=== PATIENT | female | born 1980 | race Caucasian/White ===

== ENCOUNTER → 2017-09-25 | Outpatient (CLI) | payer OTHER ==
[~2017-09-25] MED LIST: ACHD5005 PO; ALPR1T PO; BSP10T; CIPR7.5D2 OT; CLIN-62 PO; CLON0.5T3 PO; CLON2TAB45 PO; CTLP20T PO; CYCL10TA9 PO; DIAZ-345 PO; FLUO20CA42 PO; HYDR-2997 PO; HYDR-3583 PO; HYDR-757 PO; HYDR1TAB PO; HYDR50CA3; IBP800T PO; KETO-22 PO; LORA-407 PO; MELO-195; NAPR-243 PO; ONDAN4ODT PO; PRCD5U PO; PRD20T PO; PRM25T PO; QTP100T PO; QTP25T PO; TRAM-21 PO; TRAZ150T42; TRM50T PO; TRZ100T PO
--- NOTE | 2017-09-25 15:54 | Diagnostic Imaging Report ---
PROCEDURE: US abdomen complete. TECHNIQUE: Multiple real-time grayscale images were obtained over the abdomen in various projections. INDICATION: Right-sided abdominal pain. COMPARISON: CT abdomen and pelvis from 05/04/2012. FINDINGS: The liver is normal in size and echogenicity. There is no focal hepatic mass. The main portal vein is patent with antegrade flow. The gallbladder is distended without gallstones, wall thickening, or pericholecystic fluid. The common bile duct is obscured by overlying bowel gas. The visualized portions of the pancreas are normal. Portions of the head and tail are obscured by overlying bowel gas. The kidneys are normal in size. No hydronephrosis, shadowing calculi, or suspicious mass lesion. There is a 1.0 x 0.6 cm cyst in the lower pole of the right kidney. The spleen is normal in size measuring 10 cm in length, and without focal lesion. The aorta and IVC are normal in caliber where seen. Survey views of the right lower quadrant demonstrate no dilated tubular structure, although the right lower quadrant is obscured by gas. IMPRESSION: 1. No evidence of appendicitis, although evaluation of the right lower quadrant is very limited due to large amount of bowel gas. If this is of clinical concern, CT of the abdomen and pelvis is recommended. 2. Otherwise, normal abdominal ultrasound. Dictated by: Dictated on workstation # [id number]
== END ==
LOC: RAD 14:06
PROVIDERS: ATTEND Nurse Practitioner Community Health
DX: R10.31 Right lower quadrant pain (principal)
CPT/HCPCS: 76700

== ENCOUNTER 2018-01-29 09:37 | Emergency (ER) | payer SELFPAY ==
[~2018-01-29] VITALS: Ht 160 cm; Wt 111.1 kg
--- OUTSIDE RECORDS SUMMARY | 2018-01-29 09:43 | XMS REPORT ---
Author Author RACHAEL CHEATHAM Organization [facility] Address [address] [place] [address] Care Team Providers Care Channel Man Name Role Phone RACHAEL CHEATHAM Unavailable PROBLEMS Type Condition ICD9-CM Code [id number] Code Onset Dates Condition Status SNOMED Code Problem Anxiety F41.9 Active 16796477 Problem Dental abscess K04.7 Active 850983551 Problem Dental caries K02.9 Active 07155051 Problem Schizo affective schizophrenia F25.0 Active 070731427 Problem Cough 786.2 Active 13021906 Problem Bipolar 1 disorder F31.9 Active 135109938 Problem Severe episode of recurrent major depressive disorder, with psychotic features F33.3 Active 40457528 Problem PTSD (post-traumatic stress disorder) F43.10 Active 05127035 Problem Adjustment disorder with mixed anxiety and depressed mood F43.23 Active 45196554 Problem Mood disorder F39 Active 72108906 Problem Pain in joint, shoulder region 719.41 Active 015193920 Problem Pain in thoracic spine 724.1 Active 644604419 Problem Unspecified myalgia and myositis 729.1 Active 450718243 Problem Spasm of muscle 728.85 Active 00045392 Problem Allergic rhinitis due to pollen 477.0 Active 48661500 Problem Nondependent tobacco use disorder 305.1 Active 329360863 Problem Sciatica 724.3 Active 89323811 Problem Borderline personality disorder F60.3 Active 29286916 Problem Acute upper respiratory infections of unspecified site 465.9 Active 60049338 Problem Night terror F51.4 Active 72267284 ALLERGIES No Information SOCIAL HISTORY Never Assessed PLAN OF CARE VITAL SIGNS MEDICATIONS Medication Instructions Dosage Frequency Start Date End Date Duration Status Hildreth Carbonate 300 MG Orally 2 times a day 1 capsule 12h March, 30 day(s) Active Minipress 1 MG Orally at bedtime 3 capsules March, 30 day(s) Active Quetiapine Fumarate 200 MG Orally Once a day 1 tablet at bedtime 24h March 30 day(s) Active Desvenlafaxine Succinate ER 50 MG Orally Once a day in am 1 tablet March 30 day(s) Active Gabapentin 300 MG Orally Three times a day 1 capsule 8h March, 30 day(s) Active RESULTS No Results PROCEDURES No Known procedures IMMUNIZATIONS No Known Immunizations MEDICAL (GENERAL) HISTORY Type Description Date Medical History arthritis Medical History PTSD Medical History borderline personality disorder Medical History Anxiety disorder Medical History bulemia nervosa Medical History insomnia Medical History THC Use Medical History Major reoccurrng depression Medical History Borderline Mini Psychotic episodes Medical History OCD Medical History Encounter for long-term (current) use of other medications Medical History Encounter for long-term (current) use of other medications Medical History Other convulsions Medical History Intestinal infection due to other organism, NEC Medical History Bulimia Surgical History colonoscopy 2006 Surgical History removed tubes 2004 Surgical History EGD Hospitalization History mental health issues x2 [facility] in [place] 2016 & 02/2017 Hospitalization History Surgery(s)/Childbirth(s)
--- OUTSIDE RECORDS SUMMARY | 2018-01-29 09:43 | XMS REPORT ---
Author Author QUE LIMA Organization [facility] Address [address] [place] [address] Care Team Providers Care Director Investor Relations Name Role Phone QUE LIMA Unavailable PROBLEMS Type Condition ICD9-CM Code [id number] Code Onset Dates Condition Status SNOMED Code Problem Anxiety F41.9 Active 71046704 Problem Dental abscess K04.7 Active 297059198 Problem Dental caries K02.9 Active 07966894 Problem Schizo affective schizophrenia F25.0 Active 267039353 Problem Cough 786.2 Active 84948531 Problem Bipolar 1 disorder F31.9 Active 182067959 Problem Severe episode of recurrent major depressive disorder, with psychotic features F33.3 Active 58059171 Problem PTSD (post-traumatic stress disorder) F43.10 Active 88834283 Problem Adjustment disorder with mixed anxiety and depressed mood F43.23 Active 40350723 Problem Mood disorder F39 Active 48680205 Problem Pain in joint, shoulder region 719.41 Active 262112656 Problem Pain in thoracic spine 724.1 Active 894598373 Problem Unspecified myalgia and myositis 729.1 Active 390880293 Problem Spasm of muscle 728.85 Active 11409016 Problem Allergic rhinitis due to pollen 477.0 Active 97914304 Problem Nondependent tobacco use disorder 305.1 Active 550479752 Problem Sciatica 724.3 Active 18049901 Problem Borderline personality disorder F60.3 Active 81502069 Problem Acute upper respiratory infections of unspecified site 465.9 Active 51564166 Problem Night terror F51.4 Active 87725975 ALLERGIES Substance Reaction Event Type Date Status Penicillins Unknown Non Drug Allergy March, Active SOCIAL HISTORY Never Assessed PLAN OF CARE Activity Details Follow Up prn Reason:dental pain VITAL SIGNS MEDICATIONS Unknown Medications RESULTS No Results PROCEDURES Procedure Date Ordered Result Body Site INTRAORL - CMPL SERIES CODE 84014 April 05, 2017 PANORAMIC FILM SEE ALSO CODE 68348 April 05, 2017 IMMUNIZATIONS No Known Immunizations MEDICAL (GENERAL) HISTORY [...] EGD Hospitalization History mental health issues x2 [facility] [place] 2016 & 02/2017 Hospitalization History Surgery(s)/Childbirth(s)
--- OUTSIDE RECORDS SUMMARY | 2018-01-29 09:43 | XMS REPORT ---
Author Author RUBEN GUERRIER [facility] Address [address] [place] [address] Care Team Providers Care Subsurface Augmentee Elint Operator Name Role Phone RUBEN GUERRIER Unavailable PROBLEMS Type Condition ICD9-CM Code [id number] Code Onset Dates Condition Status SNOMED Code Problem Anxiety F41.9 Active 42113295 Problem Dental abscess K04.7 Active 819428644 Problem Dental caries K02.9 Active 09921761 Problem Schizo affective schizophrenia F25.0 Active 622089955 Problem Cough 786.2 Active 84920549 Problem Bipolar 1 disorder F31.9 Active 763183328 Problem Severe episode of recurrent major depressive disorder, with psychotic features F33.3 Active 37726719 Problem PTSD (post-traumatic stress disorder) F43.10 Active 01216097 Problem Adjustment disorder with mixed anxiety and depressed mood F43.23 Active 76140081 Problem Mood disorder F39 Active 73317786 Problem Pain in joint, shoulder region 719.41 Active 087246926 Problem Pain in thoracic spine 724.1 Active 618057314 Problem Unspecified myalgia and myositis 729.1 Active 127116946 Problem Spasm of muscle 728.85 Active 60867683 Problem Allergic rhinitis due to pollen 477.0 Active 94429894 Problem Nondependent tobacco use disorder 305.1 Active 000022598 Problem Sciatica 724.3 Active 84682257 Problem Borderline personality disorder F60.3 Active 75896445 Problem Acute upper respiratory infections of unspecified site 465.9 Active 56506453 Problem Night terror F51.4 Active 07856148 ALLERGIES Substance Reaction Event Type Date Status Penicillins Unknown Non Drug Allergy March, Active SOCIAL HISTORY Never Assessed PLAN OF CARE Activity Details Follow Up 2 Weeks Reason: VITAL SIGNS MEDICATIONS Unknown Medications RESULTS No Results PROCEDURES Procedure Date Ordered Result Body Site Psychotherapy, patient &/family, 30 minutes, established patient March 23, 2017 IMMUNIZATIONS No Known Immunizations MEDICAL (GENERAL) [...] EGD Hospitalization History mental health issues x2 [facility] in [place] 2016 & 02/2017 Hospitalization History Surgery(s)/Childbirth(s)
--- OUTSIDE RECORDS SUMMARY | 2018-01-29 09:43 | XMS REPORT ---
Author Author MARGARETTE BENTLEY Organization [facility] Address [address] [place] [address] Care Team Providers Care Blast Furnace Helper Name Role Phone MARGARETTE BENTLEY Unavailable PROBLEMS Type Condition ICD9-CM Code [id number] Code Onset Dates Condition Status SNOMED Code Problem Anxiety F41.9 Active 09806887 Problem Dental abscess K04.7 Active 187473403 Problem Dental caries K02.9 Active 78794923 Problem Schizo affective schizophrenia F25.0 Active 592320430 Problem Cough 786.2 Active 59670747 Problem Bipolar 1 disorder F31.9 Active 106210541 Problem Severe episode of recurrent major depressive disorder, with psychotic features F33.3 Active 53917532 Problem PTSD (post-traumatic stress disorder) F43.10 Active 02556957 Problem Adjustment disorder with mixed anxiety and depressed mood F43.23 Active 35718271 Problem Mood disorder F39 Active 76307918 Problem Pain in joint, shoulder region 719.41 Active 579837033 Problem Pain in thoracic spine 724.1 Active 195025000 Problem Unspecified myalgia and myositis 729.1 Active 639098495 Problem Spasm of muscle 728.85 Active 15615983 Problem Allergic rhinitis due to pollen 477.0 Active 36815054 Problem Nondependent tobacco use disorder 305.1 Active 964457620 Problem Sciatica 724.3 Active 20536731 Problem Borderline personality disorder F60.3 Active 10845519 Problem Acute upper respiratory infections of unspecified site 465.9 Active 76379950 Problem Night terror F51.4 Active 07831804 ALLERGIES Substance Reaction Event Type Date Status Penicillins Unknown Non Drug Allergy March, Active SOCIAL HISTORY Never Assessed PLAN OF CARE Activity Details Follow Up has establish care with [facility] next month Reason: VITAL SIGNS Height 63 in 2017-04-05 Weight 203.2 lbs 2017-04-05 Temperature 98.7 degrees Fahrenheit 2017-04-05 Heart Rate 76 bpm 2017-04-05 Respiratory Rate 20 2017-04-05 BMI 35.99 kg/m2 2017-04-05 Blood pressure systolic 130 mmHg 2017-04-05 Blood pressure diastolic 82 mmHg 2017-04-05 MEDICATIONS Medication Instructions Dosage Frequency Start Date End Date Duration Status Desvenlafaxine Succinate ER 50 MG Orally Once a day in am 1 tablet March 30 day(s) Active Clindamycin HCl 300 MG Orally every 8 hrs 1 capsule 8h March,March 07 days Active Quetiapine Fumarate 200 MG Orally Once a day 1 tablet at bedtime 24h March 30 day(s) Active Minipress 1 MG Orally at bedtime 3 capsules March, 30 day(s) Active [place] Carbonate 300 MG Orally 2 times a day 1 capsule 12h March, 30 day(s) Active Gabapentin 300 MG Orally [...] EGD Hospitalization History mental health issues x2 [facility] in [place] 2016 & 02/2017 Hospitalization History Surgery(s)/Childbirth(s)
--- OUTSIDE RECORDS SUMMARY | 2018-01-29 09:44 | XMS REPORT | Continuity of Care Document ---
Author Author [facility] Organization [facility] Address Unknown Phone Unavailable Allergies Active Description Code Type Severity Reaction Onset Reported/Identified Relationship to Patient Clinical Status Yes Penicillins [id number] Drug Allergy Mild N/A 07/09/2009 Yes amoxicillin Drug Allergy N/A N/A 08/26/2009 Yes Keflex Drug Allergy N/A N/A 08/26/2009 Yes amoxicillin Drug Allergy 08/26/2009 Yes Keflex Drug Allergy 08/26/2009 Yes BuSpar Drug Allergy N/A N/A 06/03/2010 Yes BuSpar Drug Allergy 06/03/2010 Yes hydrocodone Drug Allergy 12/07/2010 Yes Lortab 5/500 Drug Allergy 12/07/2010 Yes Cephalexin Monohydrate [id number] Drug Allergy Unknown N/A 05/04/2012 Yes Penicillins Drug Allergy N/A N/A 10/19/2012 Yes Penicillins Drug Allergy 10/19/2012 Medications There is no data. Problems Date Dx Coded Attending Type Code Diagnosis Diagnosed By 08/26/2009 KANE ORTEZ DO 300.00 Anxiety 08/26/2009 KANE ORTEZ DO 338.2 CHRONIC PAIN 08/26/2009 [facility] [place] R 300.00 Anxiety 08/26/2009 [facility] [place] R 338.2 CHRONIC PAIN 08/26/2009 [facility] [place] R 300.00 Anxiety 08/26/2009 [facility] [place] R 338.2 CHRONIC PAIN 08/26/2009 [facility] [place] R 300.00 Anxiety 08/26/2009 [facility] [place] R 338.2 CHRONIC PAIN 08/26/2009 KIMBERLY PINZON APRN 300.00 Anxiety 08/26/2009 KIMBERLY PINZON APRN 338.2 CHRONIC PAIN 08/26/2009 300.00 Anxiety 08/26/2009 338.2 CHRONIC PAIN 08/26/2009 300.00 Anxiety 08/26/2009 338.2 CHRONIC PAIN 08/26/2009 RACHAEL CHEATHAM APRN 300.00 Anxiety 08/26/2009 RACHAEL CHEATHAM APRN 338.2 CHRONIC PAIN 08/26/2009 KIMBERLY PINZON APRN R 300.00 Anxiety 08/26/2009 KIMBERLY PINZON APRN R 338.2 CHRONIC PAIN 08/26/2009 ORTEZ DO, KANE K 300.00 Anxiety 08/26/2009 ORTEZ DO, KANE K 338.2 CHRONIC PAIN 08/26/2009 ORTEZ DO, KANE K 300.00 Anxiety 08/26/2009 ORTEZ DO, KANE K 338.2 CHRONIC PAIN 08/26/2009 PHIL MATUTE MD 300.00 Anxiety 08/26/2009 PHIL MATUTE MD 338.2 CHRONIC PAIN 08/26/2009 ORTEZ DO, KANE K 300.00 Anxiety 08/26/2009 ORTEZ DO, KANE K 338.2 CHRONIC PAIN 09/24/2009 ORTEZ DO, KANE K 610.1 Diffuse Cystic Mastopathy 09/24/2009 [facility] [place] R 610.1 Diffuse Cystic Mastopathy 09/24/2009 [facility] [place] R 610.1 Diffuse Cystic Mastopathy 09/24/2009 [facility] [place] R 610.1 Diffuse Cystic Mastopathy 09/24/2009 KIMBERLY PINZON APRN R 610.1 Diffuse Cystic Mastopathy 09/24/2009 610.1 Diffuse Cystic Mastopathy 09/24/2009 610.1 Diffuse Cystic Mastopathy 09/24/2009 RACHAEL CHEATHAM APRN 610.1 Diffuse Cystic Mastopathy 09/24/2009 KIMBERLY PINZON APRN R 610.1 Diffuse Cystic Mastopathy 09/24/2009 ORTEZ DO KANE K 610.1 Diffuse Cystic Mastopathy 09/24/2009 ORTEZ DO, AKNE K 610.1 Diffuse Cystic Mastopathy 09/24/2009 PHIL MATUTE MD 610.1 Diffuse Cystic Mastopathy 09/24/2009 ORTEZ DO, KANE K 610.1 Diffuse Cystic Mastopathy 10/20/2009 ORTEZ DO, KANE K 465.9 Acute Upper Respiratory Infections Of Unspecified Site 10/20/2009 ORTEZ DO, KANE K 564.1 Irritable Bowel Syndrome 10/20/2009 [facility] [place] R 465.9 Acute Upper Respiratory Infections Of Unspecified Site 10/20/2009 [facility] [place] R 564.1 Irritable Bowel Syndrome 10/20/2009 [facility] [place] R 465.9 Acute Upper Respiratory Infections Of Unspecified Site 10/20/2009 [facility] [place] R 564.1 Irritable Bowel Syndrome 10/20/2009 [facility] [place] R 465.9 Acute Upper Respiratory Infections Of Unspecified Site 10/20/2009 [facility] [place] R 564.1 Irritable Bowel Syndrome 10/20/2009 KIMBERLY PINZON APRN R 465.9 Acute Upper Respiratory Infections Of Unspecified Site 10/20/2009 KIMBERLY PINZON APRN R 564.1 Irritable Bowel Syndrome 10/20/2009 465.9 Acute Upper Respiratory Infections Of Unspecified Site 10/20/2009 564.1 Irritable Bowel Syndrome 10/20/2009 465.9 Acute Upper Respiratory Infections Of Unspecified Site 10/20/2009 564.1 Irritable Bowel Syndrome 10/20/2009 RACHAEL CHEATHAM APRN 465.9 Acute Upper Respiratory Infections Of Unspecified Site 10/20/2009 RACHAEL CHEATHAM APRN 564.1 Irritable Bowel Syndrome 10/20/2009 KIMBERLY PINZON APRN R 465.9 Acute Upper Respiratory Infections Of Unspecified Site 10/20/2009 KIMBERLY PINZON APRN R 564.1 Irritable Bowel Syndrome 10/20/2009 ORTEZ DO, KANE K 465.9 Acute Upper Respiratory Infections Of Unspecified Site 10/20/2009 ORTEZ DO, KANE K 564.1 Irritable Bowel Syndrome 10/20/2009 ORTEZ DO KANE K 465.9 Acute Upper Respiratory Infections Of Unspecified Site 10/20/2009 ORTEZ DO KANE K 564.1 Irritable Bowel Syndrome 10/20/2009 PHIL MATUTE MD 465.9 Acute Upper Respiratory Infections Of Unspecified Site 10/20/2009 PHIL MATUTE MD 564.1 Irritable Bowel Syndrome 10/20/2009 ORTEZ DO, KANE K 465.9 Acute Upper Respiratory Infections Of Unspecified Site 10/20/2009 ORTEZ DO KANE K 564.1 Irritable Bowel Syndrome 11/11/2009 ORTEZ DO, KANE K 599.0 Urinary Tract Infection 11/11/2009 [facility] [place] R 599.0 Urinary Tract Infection 11/11/2009 [facility] [place] R 599.0 Urinary Tract Infection 11/11/2009 [facility] [place] R 599.0 Urinary Tract Infection 11/11/2009 KIMBERLY PINZON APRN R 599.0 Urinary Tract Infection 11/11/2009 599.0 Urinary Tract Infection 11/11/2009 599.0 Urinary Tract Infection 11/11/2009 RACHAEL CHEATHAM APRN 599.0 Urinary Tract Infection 11/11/2009 KIMBERLY PINZON APRN R 599.0 Urinary Tract Infection 11/11/2009 ORTEZ DO, KANE K 599.0 Urinary Tract Infection 11/11/2009 ORTEZ DO, KANE K 599.0 Urinary Tract Infection 11/11/2009 PHIL MATUTE MD 599.0 Urinary Tract Infection 11/11/2009 ORTEZ DO, KANE K 599.0 Urinary Tract Infection 01/06/2010 ORTEZ DO, KANE K 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 01/06/2010 ORTEZ DO, KANE K 780.52 Insomnia, Unspecified 01/06/2010 ORTEZ DO, KANE K 786.2 Cough 01/06/2010 [facility] [place] R 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 01/06/2010 [facility] [place] R 780.52 Insomnia, Unspecified 01/06/2010 [facility] [place] R 786.2 Cough 01/06/2010 [facility] [place] R 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 01/06/2010 [facility] [place] R 780.52 Insomnia, Unspecified 01/06/2010 [facility] [place] R 786.2 Cough 01/06/2010 [facility] [place] R 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 01/06/2010 [facility] [place] R 780.52 Insomnia, Unspecified 01/06/2010 [facility] [place] R 786.2 Cough 01/06/2010 JEROMY TOWNSENDNJAQUELINEIA R 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 01/06/2010 JAQUELINE PINZON APRNIA R 780.52 Insomnia, Unspecified 01/06/2010 YOANA PINZON APRNRICIA R 786.2 Cough 01/06/2010 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 01/06/2010 780.52 Insomnia, Unspecified 01/06/2010 786.2 Cough 01/06/2010 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 01/06/2010 780.52 Insomnia, Unspecified 01/06/2010 786.2 Cough 01/06/2010 RACHAEL CHEATHAM APRN 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 01/06/2010 RACHAEL CHEATHAM APRN 780.52 Insomnia, Unspecified 01/06/2010 RACHAEL CHEATHAM APRN 786.2 Cough 01/06/2010 JAQUELINE PINZON APRNIA R 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 01/06/2010 KIMBERLY PINZON APRN R 780.52 Insomnia, Unspecified 01/06/2010 KIMBERLY PINZON APRN R 786.2 Cough 01/06/2010 ORTEZ DO, KANE K 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2 Cough 02/23/2010 ORTEZ DO, KANE K 789.04 Abdominal Pain, Left Lower Quadrant 02/23/2010 [facility] [place] R 789.04 Abdominal Pain, Left Lower Quadrant 02/23/2010 [facility] [place] R 789.04 Abdominal Pain, Left Lower Quadrant 02/23/2010 [facility] [place] R 789.04 Abdominal Pain, Left Lower Quadrant 02/23/2010 KIMBERLY PINZON APRN R 789.04 Abdominal Pain, Left Lower Quadrant 02/23/2010 789.04 Abdominal Pain, Left Lower Quadrant 02/23/2010 789.04 Abdominal Pain, Left Lower Quadrant 02/23/2010 RACHAEL CHEATHAM APRN 789.04 Abdominal Pain, Left Lower Quadrant 02/23/2010 KIMBERLY PINZON APRN R 789.04 Abdominal Pain, Left Lower Quadrant 02/23/2010 ORTEZ DO, KANE K 789.04 Abdominal Pain, Left Lower Quadrant 02/23/2010 ORTEZ DO, KANE K 789.04 Abdominal Pain, Left Lower Quadrant 02/23/2010 PHIL MATUTE MD 789.04 Abdominal Pain, Left Lower Quadrant 02/23/2010 ORTEZ DO, KANE K 789.04 Abdominal Pain, Left Lower Quadrant 03/16/2010 NEELIMA WALLACE, KANE K 626.8 Other Disorders Of Menstruation And Other Abnormal Bleeding From Female Genital Tract 03/16/2010 [facility] [place] R 626.8 Other Disorders Of Menstruation And Other Abnormal Bleeding From Female Genital Tract 03/16/2010 [facility] [place] R 626.8 Other Disorders Of Menstruation And Other Abnormal Bleeding From Female Genital Tract 03/16/2010 [facility] [place] R 626.8 Other Disorders Of Menstruation And Other Abnormal Bleeding From Female Genital Tract 03/16/2010 KIMBERLY PINZON APRN R 626.8 Other Disorders Of Menstruation And Other Abnormal Bleeding From Female Genital Tract 03/16/2010 626.8 Other Disorders Of Menstruation And Other Abnormal Bleeding From Female Genital Tract 03/16/2010 626.8 Other Disorders Of Menstruation And Other Abnormal Bleeding From Female Genital Tract 03/16/2010 RACHAEL CHEATHAM APRN 626.8 Other Disorders Of Menstruation And Other Abnormal Bleeding From Female Genital Tract 03/16/2010 KIMBERLY PINZON APRN R 626.8 Other Disorders Of Menstruation And Other Abnormal Bleeding From Female Genital Tract 03/16/2010 NEELIMA WALLACE KANE K 626.8 Other Disorders Of Menstruation And Other Abnormal Bleeding From Female Genital Tract 03/16/2010 ORTEZ , KANE K 626.8 Other Disorders Of Menstruation And Other Abnormal Bleeding From Female Genital Tract 03/16/2010 PHIL MATUTE MD 626.8 Other Disorders Of Menstruation And Other Abnormal Bleeding From Female Genital Tract 03/16/2010 ORTEZ DO, KANE K 626.8 Other Disorders Of Menstruation And Other Abnormal Bleeding From Female Genital Tract 06/03/2010 NEELIMA WALLACE KANE K 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 06/03/2010 [facility] [place] R 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 06/03/2010 [facility] [place] R 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 06/03/2010 [facility] [place] R 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 06/03/2010 KIMBERLY PINZON APRN R 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 06/03/2010 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 06/03/2010 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 06/03/2010 RACHAEL CHEATHAM APRN 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 06/03/2010 KIMBERLY PINZON APRN R 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 06/03/2010 ORTEZ DO KANE K 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 06/03/2010 ORTEZ DO, KANE K 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 06/03/2010 PHIL MATUTE MD 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 06/03/2010 ORTEZ DO KANE K 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 06/21/2010 NEELIMA WALLACE KANE K 729.1 Myalgia And Myositis, Unspecified 06/21/2010 [facility] [place] R 729.1 Myalgia And Myositis, Unspecified 06/21/2010 [facility] [place] R 729.1 Myalgia And Myositis, Unspecified 06/21/2010 [facility] [place] R 729.1 Myalgia And Myositis, Unspecified 06/21/2010 KIMBERLY PINZON APRN R 729.1 Myalgia And Myositis, Unspecified 06/21/2010 729.1 Myalgia And Myositis, Unspecified 06/21/2010 729.1 Myalgia And Myositis, Unspecified 06/21/2010 RACHAEL CHEATHAM APRN 729.1 Myalgia And Myositis, Unspecified 06/21/2010 KIMBERLY PINZON APRN R 729.1 Myalgia And Myositis, Unspecified 06/21/2010 JAYLON ORTEZ DOA K 729.1 Myalgia And Myositis, Unspecified 06/21/2010 JAYLON ORTEZ DOA K 729.1 Myalgia And Myositis, Unspecified 06/21/2010 PHIL MATUTE MD 729.1 Myalgia And Myositis, Unspecified 06/21/2010 ORTEZ DO, KANE K 729.1 Myalgia And Myositis, Unspecified 09/13/2010 ORTEZ DO, KANE K 724.5 BACKACHE UNSPECIFIED 09/13/2010 [facility] [place] R 724.5 BACKACHE UNSPECIFIED 09/13/2010 [facility] [place] R 724.5 BACKACHE UNSPECIFIED 09/13/2010 [facility] [place] R 724.5 BACKACHE UNSPECIFIED 09/13/2010 KIMBERLY PINZON APRN R 724.5 BACKACHE UNSPECIFIED 09/13/2010 724.5 BACKACHE UNSPECIFIED 09/13/2010 724.5 BACKACHE UNSPECIFIED 09/13/2010 RACHAEL CHEATHAM APRN 724.5 BACKACHE UNSPECIFIED 09/13/2010 KIMBERLY PINZON APRN 724.5 BACKACHE UNSPECIFIED 09/13/2010 ORTEZ DO, KANE K 724.5 BACKACHE UNSPECIFIED 09/13/2010 ORTEZ DO, KANE K 724.5 BACKACHE UNSPECIFIED 09/13/2010 PHIL MATUTE MD 724.5 BACKACHE UNSPECIFIED 09/13/2010 ORTEZ DO, KANE K 724.5 BACKACHE UNSPECIFIED 11/29/2010 ORTEZ DO, KANE K 461.9 Acute Sinusitis Unspecified 11/29/2010 [facility] [place] R 461.9 Acute Sinusitis Unspecified 11/29/2010 [facility] [place] R 461.9 Acute Sinusitis Unspecified 11/29/2010 [facility] [place] R 461.9 Acute Sinusitis Unspecified 11/29/2010 KIMBERLY PINZON APRN 461.9 Acute Sinusitis Unspecified 11/29/2010 461.9 Acute Sinusitis Unspecified 11/29/2010 461.9 Acute Sinusitis Unspecified 11/29/2010 RACHAEL CHEATHAM APRN 461.9 Acute Sinusitis Unspecified 11/29/2010 KIMBERLY PINZON APRN 461.9 Acute Sinusitis Unspecified 11/29/2010 ORTEZ DOJAYLONA K 461.9 Acute Sinusitis Unspecified 11/29/2010 ORTEZ DO KANE K 461.9 Acute Sinusitis Unspecified 11/29/2010 PHIL MATUTE MD 461.9 Acute Sinusitis Unspecified 11/29/2010 KANE ORTEZ DO 461.9 Acute Sinusitis Unspecified 02/03/2011 ORTEZ DO, KANE K 486 Pneumonia Organism Unspecified 02/03/2011 [facility] [place] R 486 Pneumonia Organism Unspecified 02/03/2011 [facility] [place] R 486 Pneumonia Organism Unspecified 02/03/2011 [facility] [place] R 486 Pneumonia Organism Unspecified 02/03/2011 KIMBERLY PINZON APRN R 486 Pneumonia Organism Unspecified 02/03/2011 486 Pneumonia Organism Unspecified 02/03/2011 486 Pneumonia Organism Unspecified 02/03/2011 RACHAEL CHEATHAM APRN 486 Pneumonia Organism Unspecified 02/03/2011 KIMBERLY PINZON APRN R 486 Pneumonia Organism Unspecified 02/03/2011 NEELIMA DO, KANE K 486 Pneumonia Organism Unspecified 02/03/2011 ORTEZ DO, KANE K 486 Pneumonia Organism Unspecified 02/03/2011 PHIL MATUTE MD 486 Pneumonia Organism Unspecified 02/03/2011 ORTEZ DO, KANE K 486 Pneumonia Organism Unspecified 02/18/2011 NEELIMA DO, KANE K 924.20 Contusion Of Foot 02/18/2011 [facility] [place] R 924.20 Contusion Of Foot 02/18/2011 [facility] [place] R 924.20 Contusion Of Foot 02/18/2011 [facility] [place] R 924.20 Contusion Of Foot 02/18/2011 KIMBERLY PINZON APRN R 924.20 Contusion Of Foot 02/18/2011 924.20 Contusion Of Foot 02/18/2011 924.20 Contusion Of Foot 02/18/2011 RACHAEL CHEATHAM APRN 924.20 Contusion Of Foot 02/18/2011 KIMBERLY PINZON APRN R 924.20 Contusion Of Foot 02/18/2011 ORTEZ DO, KANE K 924.20 Contusion Of Foot 02/18/2011 ORTEZ DO, KANE K 924.20 Contusion Of Foot 02/18/2011 PHIL MATUTE MD 924.20 Contusion Of Foot 02/18/2011 ORTEZ DO KANE K 924.20 Contusion Of Foot 07/07/2011 NEELIMA DO, KANE K 296.32 MO DEPRESSIVE RECURRENT MODERATE 07/07/2011 [facility] [place] R 296.32 MO DEPRESSIVE RECURRENT MOD[facility]ATE [facility]/07[facility] 296.32 MO DEPRESSIVE RECURRENT MODERATE [facility]/07[facility] 296.32 MO DEPRESSIVE RECURRENT MODERATE 07/07/2011 KIMBERLY PINZON APRN R 296.32 MO DEPRESSIVE RECURRENT MODERATE 07/07/2011 296.32 MO DEPRESSIVE RECURRENT MODERATE 07/07/2011 296.32 MO DEPRESSIVE RECURRENT MODERATE 07/07/2011 RACHAEL CHEATHAM APRN 296.32 MO DEPRESSIVE RECURRENT MODERATE 07/07/2011 KIMBERLY PINZON APRN R 296.32 MO DEPRESSIVE RECURRENT MODERATE 07/07/2011 ORTEZ DO, KANE K 296.32 MO DEPRESSIVE RECURRENT MODERATE 07/07/2011 ORTEZ DO, KANE K 296.32 MO DEPRESSIVE RECURRENT MODERATE 07/07/2011 PHIL MATUTE MD 296.32 MO DEPRESSIVE RECURRENT MODERATE 07/07/2011 ORTEZ DO, KANE K 296.32 MO DEPRESSIVE RECURRENT MODERATE 07/20/2011 ORTEZ DO, KANE K 300.02 AN GEN ANXIETY 07/20/2011 ORTEZ DO, KANE K 300.3 AN OBCESS COMP DIS 07/20/2011 [facility] [place] R 300.02 AN GEN ANXIETY 07/20/2011 [facility] [place] R 300.3 AN OBCESS COMP DIS 07/20/2011 [facility] [place] R 300.02 AN GEN ANXIETY 07/20/2011 [facility] [place] R 300.3 AN OBCESS COMP DIS 07/20/2011 [facility] [place] R 300.02 AN GEN ANXIETY 07/20/2011 [facility] [place] R 300.3 AN OBCESS COMP DIS 07/20/2011 KIMBERLY PINZON APRN R 300.02 AN GEN ANXIETY 07/20/2011 KIMBERLY PINZON APRN R 300.3 AN OBCESS COMP DIS 07/20/2011 300.02 AN GEN ANXIETY 07/20/2011 300.3 AN OBCESS COMP DIS 07/20/2011 300.02 AN GEN ANXIETY 07/20/2011 300.3 AN OBCESS COMP DIS 07/20/2011 RACHAEL CHEATHAM APRN 300.02 AN GEN ANXIETY 07/20/2011 RACHAEL CHEATHAM APRN 300.3 AN OBCESS COMP DIS 07/20/2011 KIMBERLY PINZON APRN R 300.02 AN GEN ANXIETY 07/20/2011 KIMBERLY PINZON APRN 300.3 AN OBCESS COMP DIS 07/20/2011 ORTEZ DO, KANE K 300.02 AN GEN ANXIETY 07/20/2011 ORTEZ DO, KANE K 300.3 AN OBCESS COMP DIS 07/20/2011 ORTEZ DO, KANE K 300.02 AN GEN ANXIETY 07/20/2011 ORTEZ DO, KANE K 300.3 AN OBCESS COMP DIS 07/20/2011 PHIL MATUTE MD 300.02 AN GEN ANXIETY 07/20/2011 PHIL MATUTE MD 300.3 AN OBCESS COMP DIS 07/20/2011 ORTEZ DO, KANE K 300.02 AN GEN ANXIETY 07/20/2011 ORTEZ DO, KANE K 300.3 AN OBCESS COMP DIS 08/01/2011 ORTEZ DO, KANE K 380.10 Infective Otitis Externa Unspecified 08/01/2011 [facility] [place] R 380.10 Infective Otitis Externa Unspecified 08/01/2011 [facility] [place] R 380.10 Infective Otitis Externa Unspecified 08/01/2011 [facility] [place] R 380.10 Infective Otitis Externa Unspecified 08/01/2011 KIMBERLY PINZON APRN 380.10 Infective Otitis Externa Unspecified 08/01/2011 380.10 Infective Otitis Externa Unspecified 08/01/2011 380.10 Infective Otitis Externa Unspecified 08/01/2011 RACHAEL CHEATHAM APRN 380.10 Infective Otitis Externa Unspecified 08/01/2011 KIMBERLY PINZON APRN 380.10 Infective Otitis Externa Unspecified 08/01/2011 ORTEZ DO KANE K 380.10 Infective Otitis Externa Unspecified 08/01/2011 ORTEZ DO, KANE K 380.10 Infective Otitis Externa Unspecified 08/01/2011 PHIL MATUTE MD 380.10 Infective Otitis Externa Unspecified 08/01/2011 ORTEZ DO, KANE K 380.10 Infective Otitis Externa Unspecified 08/02/2011 ORTEZ DO, KANE K 300.00 AN ANXIETY UNSPEC 08/02/2011 [facility] [place] R 300.00 AN ANXIETY UNSPEC 08/02/2011 [facility] [place] R 300.00 AN ANXIETY UNSPEC 08/02/2011 [facility] [place] R 300.00 AN ANXIETY UNSPEC 08/02/2011 KIMBERLY PINZON APRN 300.00 AN ANXIETY UNSPEC 08/02/2011 300.00 AN ANXIETY UNSPEC 08/02/2011 300.00 AN ANXIETY UNSPEC 08/02/2011 RACHAEL CHEATHAM APRN 300.00 AN ANXIETY UNSPEC 08/02/2011 KIMBERLY PINZON APRN R 300.00 AN ANXIETY UNSPEC 08/02/2011 ORTEZ DO KANE K 300.00 AN ANXIETY UNSPEC 08/02/2011 ORTEZ DO KANE K 300.00 AN ANXIETY UNSPEC 08/02/2011 PHIL MATUTE MD 300.00 AN ANXIETY UNSPEC 08/02/2011 ORTEZ DO KANE K 300.00 AN ANXIETY UNSPEC 08/05/2011 ORTEZ DO KANE K 848.9 Unspecified Site Of Sprain And Strain 08/05/2011 [facility] [place] R 848.9 Unspecified Site Of Sprain And Strain 08/05/2011 [facility] [place] R 848.9 Unspecified Site Of Sprain And Strain 08/05/2011 [facility] [place] R 848.9 Unspecified Site Of Sprain And Strain 08/05/2011 KIMBERLY PINZON APRN R 848.9 Unspecified Site Of Sprain And Strain 08/05/2011 848.9 Unspecified Site Of Sprain And Strain 08/05/2011 848.9 Unspecified Site Of Sprain And Strain 08/05/2011 RACHAEL CHEATHAM APRN 848.9 Unspecified Site Of Sprain And Strain 08/05/2011 KIMBERLY PINZON APRN R 848.9 Unspecified Site Of Sprain And Strain 08/05/2011 NEELIMA DOJAYLONA K 848.9 Unspecified Site Of Sprain And Strain 08/05/2011 ORTEZ DO KANE K 848.9 Unspecified Site Of Sprain And Strain 08/05/2011 PHIL MATUTE MD 848.9 Unspecified Site Of Sprain And Strain 08/05/2011 ORTEZ DO KANE K 848.9 Unspecified Site Of Sprain And Strain 08/08/2011 ORTEZ DO KANE K 309.81 AN PTSD 08/08/2011 [facility], [place] R 309.81 AN PTSD 08/08/2011 [facility], [place] R 309.81 AN PTSD 08/08/2011 [facility], [place] R 309.81 AN PTSD 08/08/2011 KIMBERLY PINZON APRN 309.81 AN PTSD 08/08/2011 309.81 AN PTSD 08/08/2011 309.81 AN PTSD 08/08/2011 RACHAEL CHEATHAM APRN 309.81 AN PTSD 08/08/2011 KIMBERLY PINZON APRN 309.81 AN PTSD 08/08/2011 JAYLON ORTEZ DOA K 309.81 AN PTSD 08/08/2011 JAYLON ORTEZ DOA K 309.81 AN PTSD 08/08/2011 PHIL MATUTE MD 309.81 AN PTSD 08/08/2011 KANE ORTEZ DO K 309.81 AN PTSD 10/17/2011 JAYLON ORTEZ DOA K 296.33 MO DEPRESSIVE RECURRENT SEVERE W/O PSYCHOTIC BEHAVIOR 10/17/2011 [facility], [place] R 296.33 MO DEPRESSIVE RECURRENT SEVERE W/O PSYCHOTIC BEHAVIOR 10/17/2011 [facility], [place] R 296.33 MO DEPRESSIVE RECURRENT SEVERE W/O PSYCHOTIC BEHAVIOR 10/17/2011 [facility], [place] R 296.33 MO DEPRESSIVE RECURRENT SEVERE W/O PSYCHOTIC BEHAVIOR 10/17/2011 KIMBERLY PINZON APRN R 296.33 MO DEPRESSIVE RECURRENT SEVERE W/O PSYCHOTIC BEHAVIOR 10/17/2011 296.33 MO DEPRESSIVE RECURRENT SEVERE W/O PSYCHOTIC BEHAVIOR 10/17/2011 296.33 MO DEPRESSIVE RECURRENT SEVERE W/O PSYCHOTIC BEHAVIOR 10/17/2011 RACHAEL CHEATHAM APRN 296.33 MO DEPRESSIVE RECURRENT SEVERE W/O PSYCHOTIC BEHAVIOR 10/17/2011 KIMBERLY PINZON APRN R 296.33 MO DEPRESSIVE RECURRENT SEVERE W/O PSYCHOTIC BEHAVIOR 10/17/2011 KANE ORTEZ DO K 296.33 MO DEPRESSIVE RECURRENT SEVERE W/O PSYCHOTIC BEHAVIOR 10/17/2011 JAYLON ORTEZ DOA K 296.33 MO DEPRESSIVE RECURRENT SEVERE W/O PSYCHOTIC BEHAVIOR 10/17/2011 PHIL MATUTE MD 296.33 MO DEPRESSIVE RECURRENT SEVERE W/O PSYCHOTIC BEHAVIOR 10/17/2011 JAYLON ORTEZ DOA K 296.33 MO DEPRESSIVE RECURRENT SEVERE W/O PSYCHOTIC BEHAVIOR 01/10/2012 JAYLON ORTEZ DOA K 465.9 ACUTE UPPER RESPIRATORY INFECTIONS OF UNSPECIFIED SITE 01/10/2012 [facility], [place] R 465.9 ACUTE UPPER RESPIRATORY INFECTIONS OF UNSPECIFIED SITE 01/10/2012 [facility], [place] R 465.9 ACUTE UPPER RESPIRATORY INFECTIONS OF UNSPECIFIED SITE 01/10/2012 [facility] [place] R 465.9 ACUTE UPPER RESPIRATORY INFECTIONS OF UNSPECIFIED SITE 01/10/2012 KIMBERLY PINZON APRN R 465.9 ACUTE UPPER RESPIRATORY INFECTIONS OF UNSPECIFIED SITE 01/10/2012 465.9 ACUTE UPPER RESPIRATORY INFECTIONS OF UNSPECIFIED SITE 01/10/2012 465.9 ACUTE UPPER RESPIRATORY INFECTIONS OF UNSPECIFIED SITE 01/10/2012 RACHAEL CHEATHAM APRN 465.9 ACUTE UPPER RESPIRATORY INFECTIONS OF UNSPECIFIED SITE 01/10/2012 KIMBERLY PINZON APRN R 465.9 ACUTE UPPER RESPIRATORY INFECTIONS OF UNSPECIFIED SITE 01/10/2012 ORTEZ DO, KANE K 465.9 ACUTE UPPER RESPIRATORY INFECTIONS OF UNSPECIFIED SITE 01/10/2012 ORTEZ DO, KANE K 465.9 ACUTE UPPER RESPIRATORY INFECTIONS OF UNSPECIFIED SITE 01/10/2012 PHIL MATUTE MD 465.9 ACUTE UPPER RESPIRATORY INFECTIONS OF UNSPECIFIED SITE 01/10/2012 ORTEZ DO, KANE K 465.9 ACUTE UPPER RESPIRATORY INFECTIONS OF UNSPECIFIED SITE 05/04/2012 Ot 787.03 VOMITING ALONE 05/04/2012 Ot 789.00 ABDOMINAL PAIN, UNSPECIFIED SITE 05/08/2012 Ot 787.03 VOMITING ALONE 05/08/2012 Ot 789.06 ABDOMINAL PAIN, EPIGASTRIC 05/26/2012 ORTEZ DO, KANE K 477.0 ALLERGIC RHINITIS DUE TO POLLEN 05/26/2012 [facility], [place] R 477.0 ALLERGIC RHINITIS DUE TO POLLEN 05/26/2012 [facility], [place] R 477.0 ALLERGIC RHINITIS DUE TO POLLEN 05/26/2012 [facility], [place] R 477.0 ALLERGIC RHINITIS DUE TO POLLEN 05/26/2012 KIMBERLY PINZON APRN R 477.0 ALLERGIC RHINITIS DUE TO POLLEN 05/26/2012 477.0 ALLERGIC RHINITIS DUE TO POLLEN 05/26/2012 477.0 ALLERGIC RHINITIS DUE TO POLLEN 05/26/2012 RACHAEL CHEATHAM APRN 477.0 ALLERGIC RHINITIS DUE TO POLLEN 05/26/2012 KIMBERLY PINZON APRN R 477.0 ALLERGIC RHINITIS DUE TO POLLEN 05/26/2012 ORTEZ DO, KANE K 477.0 ALLERGIC RHINITIS DUE TO POLLEN 05/26/2012 ORTEZ DO, KANE K 477.0 ALLERGIC RHINITIS DUE TO POLLEN 05/26/2012 PHIL MATUTE MD 477.0 ALLERGIC RHINITIS DUE TO POLLEN 05/26/2012 KANE ORTEZ DO K 477.0 ALLERGIC RHINITIS DUE TO POLLEN 06/06/2012 NEELIMA WALLACE KANE K 729.1 muscle aches, generalized (myalgias) 06/06/2012 [facility], [place] R 729.1 muscle aches, generalized (myalgias) 06/06/2012 [facility] [place] R 729.1 muscle aches, generalized (myalgias) 06/06/2012 [facility] [place] R 729.1 muscle aches, generalized (myalgias) 06/06/2012 KIMBERLY PINZON APRN 729.1 muscle aches, generalized (myalgias) 06/06/2012 729.1 muscle aches, generalized (myalgias) 06/06/2012 729.1 muscle aches, generalized (myalgias) 06/06/2012 RACHAEL CHEATHAM APRN 729.1 muscle aches, generalized (myalgias) 06/06/2012 KIMBERLY PINZON APRN 729.1 muscle aches, generalized (myalgias) 06/06/2012 JAYLON ORTEZ DOA K 729.1 muscle aches, generalized (myalgias) 06/06/2012 JAYLON ORTEZ DOA K 729.1 muscle aches, generalized (myalgias) 06/06/2012 PHIL MATUTE MD 729.1 muscle aches, generalized (myalgias) 06/06/2012 KANE ORTEZ DO K 729.1 muscle aches, generalized (myalgias) 07/07/2012 Ot 311 DEPRESSIVE DISORDER NEC 08/03/2012 KANE ORTEZ DO 301.83 PD BORDERLINE 08/03/2012 [facility] [place] R 301.83 PD BORDERLINE 08/03/2012 [facility] [place] R 301.83 PD BORDERLINE 08/03/2012 [facility] [place] R 301.83 PD BORDERLINE 08/03/2012 KIMBERLY PINZON APRN 301.83 PD BORDERLINE 08/03/2012 301.83 PD BORDERLINE 08/03/2012 301.83 PD BORDERLINE 08/03/2012 RACHAEL CHEATHAM APRN 301.83 PD BORDERLINE 08/03/2012 KIMBERLY PINZON APRN 301.83 PD BORDERLINE 08/03/2012 ORTEZ DO, KANE K 301.83 PD BORDERLINE 08/03/2012 JAYLON ORTEZ DOA K 301.83 PD BORDERLINE 08/03/2012 PHIL MATUTE MD 301.83 PD BORDERLINE 08/03/2012 ORTEZ KANE WALLACE K 301.83 PD BORDERLINE 08/09/2012 ORTEZ JAYLON WALLACEA K 305.1 NONDEPENDENT TOBACCO USE DISORDER 08/09/2012 [facility], [place] R 305.1 NONDEPENDENT TOBACCO USE DISORDER 08/09/2012 [facility] [place] R 305.1 NONDEPENDENT TOBACCO USE DISORDER 08/09/2012 [facility] [place] R 305.1 NONDEPENDENT TOBACCO USE DISORDER 08/09/2012 KIMBERLY PINZON APRN R 305.1 NONDEPENDENT TOBACCO USE DISORDER 08/09/2012 305.1 NONDEPENDENT TOBACCO USE DISORDER 08/09/2012 305.1 NONDEPENDENT TOBACCO USE DISORDER 08/09/2012 RACHAEL CHEATHAM APRN 305.1 NONDEPENDENT TOBACCO USE DISORDER 08/09/2012 KIMBERLY PINZON APRN R 305.1 NONDEPENDENT TOBACCO USE DISORDER 08/09/2012 KANE ORTEZ DO K 305.1 NONDEPENDENT TOBACCO USE DISORDER 08/09/2012 JAYLON ORTEZ DOA K 305.1 NONDEPENDENT TOBACCO USE DISORDER 08/09/2012 PHIL MATUTE MD 305.1 NONDEPENDENT TOBACCO USE DISORDER 08/09/2012 JAYLON ORTEZ DOA K 305.1 NONDEPENDENT TOBACCO USE DISORDER 08/14/2012 JAYLON ORTEZ DOA K 314.01 ADHD COMBINED 08/14/2012 JAYLON ORTEZ DOA K V58.69 MEDICATION HIGH RISK 08/14/2012 [facility] [place] R 314.01 ADHD COMBINED 08/14/2012 [facility] [place] R V58.69 MEDICATION HIGH RISK 08/14/2012 [facility] [place] R 314.01 ADHD COMBINED 08/14/2012 [facility] [place] R V58.69 MEDICATION HIGH RISK 08/14/2012 [facility] [place] R 314.01 ADHD COMBINED 08/14/2012 [facility] [place] R V58.69 MEDICATION HIGH RISK 08/14/2012 KIMBERLY PINZON APRN R 314.01 ADHD COMBINED 08/14/2012 KIMBERLY PINZON APRN R V58.69 MEDICATION HIGH RISK 08/14/2012 314.01 ADHD COMBINED 08/14/2012 V58.69 MEDICATION HIGH RISK 08/14/2012 314.01 ADHD COMBINED 08/14/2012 V58.69 MEDICATION HIGH RISK 08/14/2012 RACHAEL CHEATHAM APRN 314.01 ADHD COMBINED 08/14/2012 RACHAEL CHEATHAM APRN V58.69 MEDICATION HIGH RISK 08/14/2012 KIMBERLY PINZON APRN R 314.01 ADHD COMBINED 08/14/2012 JAQUELINE PINZON APRNIA R V58.69 MEDICATION HIGH RISK 08/14/2012 ORTEZ DO, KANE K 314.01 ADHD COMBINED 08/14/2012 ORTEZ DO, KANE K V58.69 MEDICATION HIGH RISK 08/14/2012 ORTEZ DO, KANE K 314.01 ADHD COMBINED 08/14/2012 ORTEZ DO, KANE K V58.69 MEDICATION HIGH RISK 08/14/2012 PHIL MATUTE MD 314.01 ADHD COMBINED 08/14/2012 PHIL MATUTE MD V58.69 MEDICATION HIGH RISK 08/14/2012 ORTEZ DO, KANE K 314.01 ADHD COMBINED 08/14/2012 ORTEZ DO, KANE K V58.69 MEDICATION HIGH RISK 09/15/2012 ORTEZ DO, KANE K 780.39 SEIZURES OTHER 09/15/2012 [facility], [place] R 780.39 SEIZURES OTHER 09/15/2012 [facility], [place] R 780.39 SEIZURES OTHER 09/15/2012 [facility], [place] R 780.39 SEIZURES OTHER 09/15/2012 KIMBERLY PINZON APRN R 780.39 SEIZURES OTHER 09/15/2012 780.39 SEIZURES OTHER 09/15/2012 780.39 SEIZURES OTHER 09/15/2012 RACHAEL CHEATHAM APRN 780.39 SEIZURES OTHER 09/15/2012 KIMBERLY PINZON APRN R 780.39 SEIZURES OTHER 09/15/2012 ORTEZ DO, KANE K 780.39 SEIZURES OTHER 09/15/2012 ORTEZ DO, KANE K 780.39 SEIZURES OTHER 09/15/2012 PHIL MATUTE MD 780.39 SEIZURES OTHER 09/15/2012 ORTEZ DO, KANE K 780.39 SEIZURES OTHER 10/19/2012 ORTEZ DO, KANE K 724.1 PAIN IN THORACIC SPINE 10/19/2012 [facility], [place] R 724.1 PAIN IN THORACIC SPINE 10/19/2012 [facility], [place] R 724.1 PAIN IN THORACIC SPINE 10/19/2012 [facility], [place] R 724.1 PAIN IN THORACIC SPINE 10/19/2012 KIMBERLY PINZON APRN R 724.1 PAIN IN THORACIC SPINE 10/19/2012 724.1 PAIN IN THORACIC SPINE 10/19/2012 724.1 PAIN IN THORACIC SPINE 10/19/2012 KIMBERLY PINZON APRN R 724.1 PAIN IN THORACIC SPINE 10/19/2012 JAYLON ORTEZ DOA K 724.1 PAIN IN THORACIC SPINE 10/19/2012 JAYLON ORTEZ DOA K 724.1 PAIN IN THORACIC SPINE 10/19/2012 PHIL MATUTE MD 724.1 PAIN IN THORACIC SPINE 10/19/2012 KANE ORTEZ DO K 724.1 PAIN IN THORACIC SPINE 10/24/2012 [facility], [place] R 301.9 PD PERS DIS NOS 10/24/2012 [facility] [place] R 301.9 PD PERS DIS NOS 10/24/2012 [facility] [place] R 301.9 PD PERS DIS NOS 10/24/2012 KIMBERLY PINZON APRN R 301.9 PD PERS DIS NOS 10/24/2012 301.9 PD PERS DIS NOS 10/24/2012 301.9 PD PERS DIS NOS 10/24/2012 KIMBERLY PINZON APRN R 301.9 PD PERS DIS NOS 10/24/2012 KANE ORTEZ DO K 301.9 PD PERS DIS NOS 10/24/2012 JAYLON ORTEZ DOA K 301.9 PD PERS DIS NOS 10/24/2012 PHIL MATUTE MD 301.9 PD PERS DIS NOS 10/24/2012 JAYLON ORTEZ DOA K 301.9 PD PERS DIS NOS 12/25/2012 [facility] [place] [facility] 008.8 GASTROENTERITIS VIRAL 12/25/2012 KIMBERLY PINZON APRN R 008.8 GASTROENTERITIS VIRAL 12/25/2012 008.8 GASTROENTERITIS VIRAL 12/25/2012 008.8 GASTROENTERITIS VIRAL 12/25/2012 KIMBERLY PINZON APRN R 008.8 GASTROENTERITIS VIRAL 12/25/2012 JAYLON ORTEZ DOA K 008.8 GASTROENTERITIS VIRAL 12/25/2012 NEELIMA WALLACE KANE K 008.8 GASTROENTERITIS VIRAL 12/25/2012 PHIL MATUTE MD 008.8 GASTROENTERITIS VIRAL 12/25/2012 JAYLON ORTEZ DOA K 008.8 GASTROENTERITIS VIRAL 02/06/2013 KIMBERLY PINZON APRN R 786.2 cough 02/06/2013 786.2 cough 02/06/2013 786.2 cough 02/06/2013 KIMBERLY PINZON APRN R 786.2 cough 02/06/2013 KANE ORTEZ DO 786.2 cough 02/06/2013 KANE ORTEZ DO 786.2 cough 02/06/2013 PHIL MATUTE MD 786.2 cough 02/06/2013 KANE ORTEZ DO 786.2 cough 08/13/2013 ANGELA SANTANA FIELD BROOMER Ot 719.45 JOINT PAIN-PELVIS 08/13/2013 ANGELA SANTANA FIELD BROOMER Ot 724.3 SCIATICA 08/21/2013 KANE ORTEZ DO 724.3 SCIATICA 08/21/2013 KANE ORTEZ DO 724.3 SCIATICA 08/21/2013 PHIL MATUTE MD 724.3 SCIATICA 08/21/2013 KANE ORTEZ DO 724.3 SCIATICA 01/27/2014 KANE ORTEZ DO 719.41 PAIN IN JOINT INVOLVING SHOULDER REGION 01/27/2014 PHIL MATUTE MD 719.41 PAIN IN JOINT INVOLVING SHOULDER REGION 01/27/2014 KANE ORTEZ DO 719.41 PAIN IN JOINT INVOLVING SHOULDER REGION 06/27/2014 PHIL MATUTE MD 728.85 SPASM OF MUSCLE 06/27/2014 KANE ORTEZ DO 728.85 SPASM OF MUSCLE 10/24/2017 RACHAEL CHEATHAM [facility] Ot R10.31 RIGHT LOWER QUADRANT PAIN Procedures Code Description Performed By Performed On Physical Physical Therapy, Via [facility] 09/11/2012 99664 XRAY CERVICAL SPINE, 2 OR 3 VIEWS 10/19/2012 25540 XRAY THORACIC SPINE 2 VIEWS 10/19/2012 56805 PSYCH DIAG INTER EXAM 11/01/2012 24502 PSYTX PT&/FAMILY 45 MINUTES 12/13/2012 64912 PSYCH PHARM MGMT 12/13/2012 27532 INFLUENZA A & B (IN-HOUSE) 12/25/2012 46160 PSYTX PT&/FAMILY 45 MINUTES 12/27/2012 18578 PSYCH PHARM MGMT 02/08/2013 71425 ROUTINE VENIPUNCTURE 03/25/2013 48409 URINE DRUG SCREEN (IN-HOUSE ) 03/25/2013 95405 CBC 03/25/2013 78241 CMP 03/25/2013 1656818 GFR CALC (RESULT ONLY) 03/25/2013 17581 CPK 03/25/2013 09867 XRAY SHOULDER LEFT COMP 2 VIEWS 01/27/2014 OrthopedHemant Castillo 06/27/2014 Results There is no data. Encounters ACCT No. Visit Date/Time Discharge Status Pt. Type Provider Facility Loc./Unit Complaint [id number] 09/25/2017 14:06:00 09/25/2017 23:59:59 CLS Outpatient CHAPARRITA RACHAEL Imani RANDALL [facility] RAD R10.31 ABDOMINAL PAIN , RIGHT LOWER QUADRANT [id number] 08/13/2013 18:17:00 08/13/2013 19:30:00 DIS Emergency ANGELA SANTANA APRN [facility] ER RT HIP PAIN [id number] 07/06/2013 17:30:00 07/06/2013 23:59:59 CLS Outpatient [id number] 07/07/2012 10:59:00 Document Registration [id number] 05/08/2012 09:03:00 Document Registration [id number] 05/04/2012 11:25:00 Document Registration [id number] 07/17/2014 13:43:00 07/17/2014 23:59:59 CLS Outpatient KANE ORTEZ DO [id number] 06/27/2014 09:30:00 06/27/2014 23:59:59 CLS Outpatient PHIL MATUTE MD [id number] 01/27/2014 14:32:00 01/27/2014 23:59:59 CLS Outpatient KANE ORTEZ DO [id number] 08/21/2013 11:24:00 08/21/2013 23:59:59 CLS Outpatient KANE ORTEZ DO [id number] 07/01/2013 17:32:00 07/01/2013 23:59:59 CLS Outpatient KIMBERLY PINZON APRN [id number] 02/06/2013 14:02:00 02/06/2013 23:59:59 CLS Outpatient KIMBERLY PINZON APRN [id number] 12/27/2012 13:48:00 12/27/2012 23:59:59 CLS Outpatient HENRIQUE ROTH [id number] 12/13/2012 13:44:00 12/13/2012 23:59:59 CLS Outpatient HENRIQUE ROTH [id number] 11/01/2012 10:39:00 11/01/2012 23:59:59 CLS Outpatient HENRIQUE ROTH [id number] 10/19/2012 13:43:00 10/19/2012 23:59:59 [place] [id number] 08/14/2012 16:53:00 08/14/2012 23:59:59 CLS Outpatient RACHAEL CHEATHAM APRN [id number] 05/13/2013 10:18:00 Document Registration [id number] 03/25/2013 11:12:00 Document Registration
[2018-01-29 12:16] VITALS: BP 124/93
[2018-01-29 12:36] LABS: BASOPHILS % (AUTO) 0 % (0-10); EOSINOPHILS % (AUTO) 0 % (0-10); HEMATOCRIT 41 % (35-52); HEMOGLOBIN 14.4 G/DL (11.5-16.0); LYMPHOCYTES # (AUTO) 1.9 X 10^3 (1.0-4.0); LYMPHOCYTES % (AUTO) 16 % (12-44); MEAN CORPUSCULAR HEMOGLOBIN 31 PG (25-34); MEAN CORPUSCULAR HGB CONC 35 G/DL (32-36); MEAN CORPUSCULAR VOLUME 88 FL (80-99); MEAN PLATELET VOLUME 9.4 FL (7.4-10.4); MONOCYTES # (AUTO) 0.7 X 10^3 (0.0-1.0); MONOCYTES % (AUTO) 6 % (0-12); NEUTROPHILS # (AUTO) 9.4 X 10^3 (1.8-7.8); NEUTROPHILS % (AUTO) 78 % (42-75); PLATELET COUNT 342 10^3/uL (130-400); RED BLOOD COUNT 4.65 10^6/uL (4.35-5.85); RED CELL DISTRIBUTION WIDTH 13.8 % (10.0-14.5); WHITE BLOOD COUNT 12.1 10^3/uL (4.3-11.0)
--- NOTE | 2018-01-29 12:39 | ED Abdominal Pain ---
General Chief Complaint: Abdominal/GI Problems Stated Complaint: VOMITING Nursing Triage Note: Pt c/o lower abd pain and vomiting x3 days. Pt also reports she started her second menstrual period for the month on 01/25 and vomiting started on 01/27. Sepsis Screen: No Definite Risk Source of Information: Patient Exam Limitations: No Limitations History of Present Illness Date Seen by Provider: Jan 29, 2018 Time Seen by Provider: 12:38 Initial Comments To ER with suprapubic abdominal discomfort. Began 3 days ago when she started having vaginal bleeding again for the second time this month. She began vomiting on 317 and has been unable to take her psychiatric medications. She is still nauseous. Timing/Duration: 2-3 Days Severity/Quality: Moderate Location: Suprapubic Radiation: No Radiation Activities at Onset: None Associated Symptoms: Denies Symptoms Allergies and Home Medications Allergies Coded Allergies: Penicillins (Unverified Allergy, Mild, 07/09/09) Cephalexin Monohydrate (Unverified Allergy, Unknown, 05/04/12) Home Medications Clonazepam 2 Mg/Tab Tab.rapdis, 2 MG PO HS, (Reported) Fluoxetine Hcl 20 Mg Capsule, 60 MG PO DAILY, (Reported) Hydrocodone Bit/Acetaminophen 1 Each Tablet, 1 EACH PO Q4H PRN Prescribed by: ANGELA SANTANA on 08/13/131835 Prednisone 20 Mg Tab, 40 MG PO DAILY Prescribed by: ANGELA SANTANA on 08/13/131835 Trazodone Hcl 100 Mg Tab, 100-200 MG PO HS PRN, (Reported) Patient Home Medication List Home Medication List Reviewed: Yes Review of Systems Constitutional: see HPI EENTM: No Symptoms Reported Respiratory: No Symptoms Reported Cardiovascular: No Symptoms Reported Gastrointestinal: See HPI, Abdominal Pain Genitourinary: No Symptoms Reported Musculoskeletal: no symptoms reported Skin: no symptoms reported Psychiatric/Neurological: No Symptoms Reported Endocrine: No Symptoms Reported Hematologic/Lymphatic: No Symptoms Reported Past Nmtajfk-Ayiapj-Caabhv Hx Patient Social History Alcohol Use: Rarely Uses Recreational Drug Use: No Smoking Status: Former Smoker Former Smoker, Quit: Dec 14, 2017 Recent Foreign Travel: No Contact w/Someone Who Travel: No Recent Infectious Disease Expo: No Recent Hopitalizations: No Seasonal Allergies Seasonal Allergies: No Surgeries History of Surgeries: Yes Surgeries: Tubal Ligation Respiratory History of Respiratory Disorde: No Cardiovascular History of Cardiac Disorders: No Neurological History of Neurological Disord: No 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 System Hx 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 Disorders: No [employer] History: Tubal Ligation Genitourinary History of Genitourinary Disor: No Gastrointestinal History of Gastrointestinal Di: No Musculoskeletal History of Musculoskeletal Dis: No Endocrine History of Endocrine Disorders: No HEENT History of HEENT Disorders: No Cancer History of Cancer: No Psychosocial History of Psychiatric Problem: Yes Behavioral Health Disorders: Anxiety, PTSD, Depression Integumentary History of Skin or Integumenta: No Physical Exam Vital Signs VS - Last 72 Hours, by Label 01/29/18 01/29/18 10:34 12:16 Temp 98.2 98.7 Pulse 109 102 Resp 18 20 B/P (MAP) 159/108 (125) 124/93 (103) Pulse Ox 96 100 O2 Delivery Room Air Capillary Refill : Less Than 3 Seconds General Appearance: WD/WN, no apparent distress HEENT: PERRL/EOMI, normal ENT inspection Neck: non-tender, full range of motion Respiratory: normal breath sounds, no respiratory distress, no accessory muscle use Cardiovascular: regular rate, rhythm, no murmur Gastrointestinal: normal bowel sounds, soft, tenderness (suprapubic) Extremities: normal range of motion, non-tender Neurologic/Psychiatric: alert, normal mood/affect, oriented x 3 Skin: normal color, warm/dry Progress/Results/Core Measures Results/Orders Lab Results Laboratory Tests Test 01/29/18 12:25 Range/Units White Blood Count 12.1 H 4.3-11.0 10^3/uL Red Blood Count 4.65 4.35-5.85 10^6/uL Hemoglobin 14.4 11.5-16.0 G/DL Hematocrit 41 35-52 % Mean Corpuscular Volume 88 80-99 FL Mean Corpuscular Hemoglobin 31 25-34 PG Mean Corpuscular Hemoglobin Concent 35 32-36 G/DL Red Cell Distribution Width 13.8 10.0-14.5 % Platelet Count 342 130-400 10^3/uL Mean Platelet Volume 9.4 7.4-10.4 FL Neutrophils (%) (Auto) 78 H 42-75 % Lymphocytes (%) (Auto) 16 12-44 % Monocytes (%) (Auto) 6 0-12 % Eosinophils (%) (Auto) 0 0-10 % Basophils (%) (Auto) 0 0-10 % Neutrophils # (Auto) 9.4 H 1.8-7.8 X 10^3 Lymphocytes # (Auto) 1.9 1.0-4.0 X 10^3 Monocytes # (Auto) 0.7 0.0-1.0 X 10^3 Eosinophils # (Auto) 0.0 0.0-0.3 10^3/uL Basophils # (Auto) 0.0 0.0-0.1 10^3/uL Urine Color YELLOW Urine Clarity SLIGHTLY CLOUDY Urine pH 6.5 5-9 Urine Specific [place] 1.010 L 1.016-1.022 Urine Protein 2+ H NEGATIVE Urine Glucose (UA) NEGATIVE NEGATIVE Urine Ketones 4+ H NEGATIVE Urine Nitrite NEGATIVE NEGATIVE Urine Bilirubin NEGATIVE NEGATIVE Urine Urobilinogen 1 NORMAL MG/DL Urine Leukocyte Esterase 1+ H NEGATIVE Urine RBC (Auto) 1+ H NEGATIVE Urine RBC 0-2 /HPF Urine WBC 0-2 /HPF Urine Squamous Epithelial Cells 10-25 H /HPF Urine Crystals NONE /LPF Urine Bacteria TRACE /HPF Urine Casts NONE /LPF Urine Mucus MODERATE H /LPF Urine Culture Indicated NO Urine Test NEGATIVE NEGATIVE Sodium Level 139 135-145 MMOL/L Potassium Level 3.4 L 3.6-5.0 MMOL/L Chloride Level 103 98-107 MMOL/L Carbon Dioxide Level 26 21-32 MMOL/L Anion Gap 10 5-14 MMOL/L Blood Urea Nitrogen 8 7-18 MG/DL Creatinine 0.72 0.60-1.30 MG/DL Estimat Glomerular Filtration Rate > 60 BUN/Creatinine Ratio 11 Glucose Level 93 70-105 MG/DL Calcium Level 8.9 8.5-10.1 MG/DL Total Bilirubin 0.5 0.1-1.0 MG/DL Aspartate Amino Transf (AST/SGOT) 17 5-34 U/L Alanine Aminotransferase (ALT/SGPT) 17 0-55 U/L Alkaline Phosphatase 138 H 40-136 U/L Total Protein 7.6 6.4-8.2 GM/DL Albumin 4.3 3.2-4.5 GM/DL Lipase 7 L 8-78 U/L Human Chorionic Gonadotropin, Quant < 5 <5 MIU/ML My Orders Orders - ANGELA SANTANA PHYSICAL THERAPIST TECHNICIAN Cbc With Automated Diff (01/29/18 10:51) Comprehensive Metabolic Panel (01/29/18 10:51) Ua Culture If Indicated (01/29/18 10:51) Lipase (01/29/18 10:51) Saline Lock/Iv-Start (01/29/18 10:51) Hcg,Qualitative Urine (01/29/18 12:29) Lactated Ringers (Lr 1000 Ml Iv Solution (01/29/18 12:45) Ondansetron Injection (Zofran Injectio (01/29/18 12:45) Ketorolac Injection (Toradol Injection) (01/29/18 12:45) Hcg,Quantitative (01/29/18 12:39) Us Non Ob Transvaginal [id number] (01/29/18 12:43) Medications Given in ED Current Medications Medications Dose Ordered Sig/North Route Start Time Stop Time Status Last Admin Dose Admin Ketorolac Tromethamine 30 mg ONCE ONCE IVP 01/29/18 12:45 01/29/18 12:46 DC 01/29/18 12:48 30 MG Ondansetron HCl 8 mg ONCE ONCE IVP 01/29/18 12:45 01/29/18 12:46 DC 01/29/18 12:48 8 MG Vital Signs/I&O Vital Sign - Last 12Hours 01/29/18 01/29/18 10:34 12:16 Temp 98.2 98.7 Pulse 109 102 Resp 18 20 B/P (MAP) 159/108 (125) 124/93 (103) Pulse Ox 96 100 O2 Delivery Room Air Blood Pressure Mean: 103 Departure Impression Impression: Primary Impression: Menstrual irregularity Additional Impression: Nausea & vomiting Disposition: 01 HOME, SELF-CARE Condition: Stable Departure-Patient Inst. Decision time for Depature: 13:33 Referrals: PHIL MATUTE MD (PCP) Primary Care Physician RACHAEL CHEATHAM (Family) Primary Care Physician Patient Instructions: Menstrual Cramps Add. Discharge Instructions: 1. Nausea medication as needed. Tylenol and Motrin for pain control 3. Follow-up with your doctor this week for further evaluation of her menstrual irregularity. All discharge instructions reviewed with patient and/or family. Voiced understanding. Scripts Ondansetron (Zofran Odt) 8 Mg Tab.rapdis 8 MG PO Q6H Y for NAUSEA/VOMITING-1ST LINE, #14 TAB Prov: ANGELA SANTANA PHYSICAL THERAPIST TECHNICIAN 01/29/18 ANGELA SANTANA APRN Jan 29, 2018 12:39
[2018-01-29 12:42] LABS: BILIRUBIN,URINE NEGATIVE (NEGATIVE); CLARITY,URINE SLIGHTLY CLOUDY; COLOR,URINE YELLOW; GLUCOSE, URINE (UA) NEGATIVE (NEGATIVE); KETONES,URINE 4+ (NEGATIVE); LEUKOCYTE ESTERASE ,URINE 1+ (NEGATIVE); NITRITE,URINE NEGATIVE (NEGATIVE); PH,URINE 6.5 (5-9); PROTEIN,URINE 2+ (NEGATIVE); UROBILINOGEN,URINE 1 MG/DL (NORMAL)
[2018-01-29] MEDS ORDERED: ONDANSETRON 4 MG/2 ML (SDV) Z0FRAN IVP ONE (12:45)
[2018-01-29] MEDS ORDERED: KETOROLAC 30 MG/ML VIAL IVP ONE (12:45)
[2018-01-29] MEDS ORDERED: LACTATED RINGERS 1,000 ML IV SCH (12:45)
[2018-01-29 12:54] LABS: BACTERIA,URINE TRACE /HPF; RBC,URINE 0-2 /HPF; WBC,URINE 0-2 /HPF
[2018-01-29 13:03] LABS: ALANINE AMINOTRANSFERASE 17 U/L (0-55); ALBUMIN 4.3 GM/DL (3.2-4.5); ALKALINE PHOSPHATASE 138 U/L (40-136); BILIRUBIN,TOTAL 0.5 MG/DL (0.1-1.0); BUN/CREATININE RATIO 11; CALCIUM 8.9 MG/DL (8.5-10.1); CARBON DIOXIDE 26 MMOL/L (21-32); CHLORIDE 103 MMOL/L (98-107); CREATININE SERUM 0.72 MG/DL (0.60-1.30); GFR ESTIMATED > 60; GLUCOSE 93 MG/DL (70-105); LIPASE 7 U/L (8-78); POTASSIUM 3.4 MMOL/L (3.6-5.0); SODIUM 139 MMOL/L (135-145); TOTAL PROTEIN 7.6 GM/DL (6.4-8.2)
[2018-01-29] MEDS ORDERED: ONDA8TAB9 PO (13:34)
--- NOTE | 2018-01-29 13:45 | Diagnostic Imaging Report ---
INDICATION: Pelvic pain and heavy bleeding. FINDINGS: Transvaginal sonography was performed. The uterus measures 8.0 x 4.9 x 4.3 cm. The endometrium is normal thickness at 5 mm. No myometrial mass is identified. The right ovary is not visualized. The left ovary measures 2.2 x 1.8 x 3.2 cm. No adnexal mass is detected. There is blood flow to the left ovary. No free fluid is seen. IMPRESSION: Nonvisualized right ovary. The study is otherwise unremarkable. Dictated by: Dictated on workstation # [id number]
[2018-01-29 13:55] VITALS: BP 148/78
== END 2018-01-29 13:55 | disposition home or self-care (01) ==
LOC: EDUNIT# 09:37 → ER 09:39
DX: N92.6 Irregular menstruation, unspecified (principal); R11.2 Nausea with vomiting, unspecified; F41.9 Anxiety disorder, unspecified; F43.10 Post-traumatic stress disorder, unspecified; F32.9 Major depressive disorder, single episode, unspecified; Z88.0 Allergy status to penicillin; Z88.1 Allergy status to other antibiotic agents; Z79.52 Long term (current) use of systemic steroids; Z87.891 Personal history of nicotine dependence; Z98.51 Tubal ligation status
CPT/HCPCS: 36415; 76830; 80053; 81000; 83690; 84702; 84703; 85025; 96374; 96375

== ENCOUNTER → 2018-03-14 | Outpatient (CLI) | payer OTHER ==
[~2018-03-14] MED LIST changes: +ONDA8TAB9 PO
--- NOTE | 2018-03-14 14:43 | Diagnostic Imaging Report ---
INDICATION: Palpable lumps in the bilateral breasts as well as bilateral nipple discharge. COMPARISON: No prior studies are available for comparison. TECHNIQUE: Bilateral 2D and 3D diagnostic mammography was performed. The current study was also evaluated with a Computer Aided Detection (CAD) system. FINDINGS: There are scattered fibroglandular densities bilaterally. There is a tiny circumscribed density in the lower inner left breast approximately 6 cm from the nipple. This has benign features and may represent a tiny cyst. No other masses are seen. No suspicious calcifications are identified. The axillae are unremarkable. The retroareolar regions are unremarkable. IMPRESSION: There is a tiny circumscribed nodule in the lower inner left breast. No other abnormalities are seen. Sonographic interrogation of the area of nodule in the left breast as well as all the other areas of palpable abnormality in the bilateral breasts and retroareolar regions is recommended for further evaluation. ACR BI-RADS Category 0: Incomplete. (Needs additional imaging evaluation). Result letter will be mailed to the patient. Note: At least 10% of breast cancer is not imaged by mammography. Dictated by: Dictated on workstation # [id number]
--- NOTE | 2018-03-14 15:05 | Diagnostic Imaging Report ---
INDICATION: Bilateral breast lumps and nipple discharge. FINDINGS: Interrogation of the bilateral breasts and retroareolar regions was performed. No solid or cystic masses are identified. No sonographic abnormality is seen. IMPRESSION: No suspicious sonographic abnormality is identified. Continued close clinical and self breast exams are recommended to confirm stability of the palpable abnormalities. A tiny circumscribed density in the lower inner left breast on mammography has benign features and likely represents a tiny cyst. ACR BI-RADS Category 1: Negative. Dictated by: Dictated on workstation # [id number]
== END ==
LOC: RAD 13:27
PROVIDERS: ATTEND Internal Medicine Gastroenterology
DX: R92.8 Other abnormal and inconclusive findings on diagnostic imaging of breast (principal); N63.10 Unspecified lump in the right breast, unspecified quadrant; N63.20 Unspecified lump in the left breast, unspecified quadrant; N64.52 Nipple discharge
CPT/HCPCS: 77066

== ENCOUNTER 2018-08-03 07:59 | Emergency (ER) | payer SELFPAY ==
[~2018-08-03] VITALS: Ht 160 cm; Wt 114.3 kg
--- OUTSIDE RECORDS SUMMARY | 2018-08-03 08:05 | XMS REPORT ---
Author Author RUBEN Braga Organization [facility] Address [address] [place] [address] Care Team Providers Care Yield Analyst Name Role Phone MoizMigue RUBEN Unavailable PROBLEMS Type Condition ICD9-CM Code EUD38-DH Code Onset Dates Condition Status SNOMED Code Problem Anxiety F41.9 Active 45389004 Problem Severe episode of recurrent major depressive disorder, with psychotic features F33.3 Active 42265905 Problem PTSD (post-traumatic stress disorder) F43.10 Active 75740074 Problem Borderline personality disorder F60.3 Active 60050896 Problem Night terror F51.4 Active 54073887 Problem Cannabis use disorder, mild, abuse F12.10 Active 71901915 Problem Sciatica, unspecified side M54.30 Active 56146720 Problem Adjustment disorder with mixed anxiety and depressed mood F43.23 Active 15164927 Problem Mood disorder F39 Active 80359503 Problem Schizo affective schizophrenia F25.0 Active 622954507 Problem Bipolar 1 disorder F31.9 Active 741536311 ALLERGIES Substance Reaction Event Type Date Status Pseudoephedrine HCl ER unknown Drug Allergy Aug, Active Phenytoin rash Drug Allergy Aug, Active Penicillamine anaphylaxis Drug Allergy Aug, Active Cephalexin anaphylaxis Drug Allergy Aug, Active Albuterol unknown Drug Allergy Aug, Active ENCOUNTERS Encounter Location Date Diagnosis [facility] [address] [facility] [id number] [address] March, [facility] [address] [address] March, [facility] [id number] [address] Feb, [facility] [address] [id number] [address] Feb, [facility] [id number] [address] Feb, Breast cancer screening Z12.31 [place] [id number] [place] [address]5038- 5634 Feb, Mood disorder F39 and PTSD (post-traumatic stress disorder) F43.10 [place] [id number] [place] [address] 01858- 1587 Feb, PTSD (post-traumatic stress disorder) F43.10 ; Mood disorder F39 ; Borderline personality disorder F60.3 and Cannabis use disorder, mild, abuse F12.10 [place] [id number] [place] [address] 35234- 3687 Feb, Schizo affective schizophrenia F25.0 ; Adjustment disorder with mixed anxiety and depressed mood F43.23 ; Night terror F51.4 ; Anxiety F41.9 and Borderline personality disorder F60.3 [place] [address] [address] Feb, [place] [id number] [place] [address] 09424- 1256 Feb, Mood disorder F39 [id number] [place] [address] 20093- 2544 Feb, Annual physical exam Z00.00 ; BMI 40.0-44.9, adult Z68.41 and Nipple discharge N64.52 [place] [id number] [place] [address] 10873- 1763 Jan, Schizo affective schizophrenia F25.0 ; Adjustment disorder with mixed anxiety and depressed mood F43.23 ; Night terror F51.4 ; Anxiety F41.9 and Borderline personality disorder F60.3 [place] [address] [address] Jan, Mood disorder F39 ; PTSD (post-traumatic stress disorder) F43.10 ; Borderline personality disorder F60.3 and High risk medication use Z79.899 [facility] [id number] [place] [address] 34946- 4133 Dec, Anxiety F41.9 and Borderline personality disorder F60.3 [facility] [id number] [place] [address] 34056- 0476 Dec, [facility] [id number] [place] [address] 58041- 7516 Dec, Anxiety F41.9 and Borderline personality disorder F60.3 [facility] [id number] [place] [address] 32686- 3024 Dec, [facility] [id number] [place] [address] 16127- 6096 Dec, [facility] [id number] [place] [address] 13843- 8447 Nov, Acute non-recurrent maxillary sinusitis J01.00 ; Mood disorder F39 and Sciatica, unspecified side M54.30 [facility] [id number] [place] [address] 03961- 9642 Nov, Mood disorder F39 ; PTSD (post-traumatic stress disorder) F43.10 and Borderline personality disorder F60.3 [facility] [id number] [place] [address] 15826- 5794 Nov, Anxiety F41.9 and Borderline personality disorder F60.3 [facility] [id number] [place] [address] 89307- 4313 Nov, [facility] [id number] [place] [address] 93244- 4658 Nov, Anxiety F41.9 and Sciatica, unspecified side M54.30 [facility] [address] [place] [address] 20835- 8066 Oct, Anxiety F41.9 [facility] [id number] [place] [address] [id number]- 6786 Oct, Mood disorder F39 ; PTSD (post-traumatic stress disorder) F43.10 ; Borderline personality disorder F60.3 and High risk medication use Z79.899 [facility] [address] [id number] 11 Oct, 2017 Dental caries K02.9 and Dental examination Z01.20 [facility] [address] [place] [address] 90947- 2113 Sep, Dysuria R30.0 and Abdominal pain, right lower quadrant R10.31 [facility] [id number] [place] [address] 90508- 8552 Aug, Mood disorder F39 ; PTSD (post-traumatic stress disorder) F43.10 and Borderline personality disorder F60.3 [facility] [id number] [place] [address] 06605- 0912 Aug, [facility] [id number] [place] [address] 02123- 3051 Aug, [facility] [id number] [place] [address] 06398- 8080 Aug, Severe episode of recurrent major depressive disorder, with psychotic features F33.3 ; PTSD (post-traumatic stress disorder) F43.10 ; Adjustment disorder with mixed anxiety and depressed mood F43.23 and Borderline personality disorder F60.3 [facility] [address] [place] [address] 29018- 1833 Aug, Mood disorder F39 ; PTSD (post-traumatic stress disorder) F43.10 and Borderline personality disorder F60.3 [facility] [address] [address] 3504 Aug, [facility] [id number] [place] [address] 06725- 0207 Aug, Bipolar 1 disorder F31.9 and Schizo affective schizophrenia F25.0 [facility] [id number] [place] [address] 25552- 0400 Aug, Mood disorder F39 [facility] [address], [place] [address]- 5300 Aug, Bipolar 1 disorder F31.9 and Schizo affective schizophrenia F25.0 [facility] [address], [place] [address]- 8216 Aug, Bipolar 1 disorder F31.9 and Schizo affective schizophrenia F25.0 [facility] [id number] [place] [address] 56713- 1187 Aug, [facility] [id number] [place] [address] 80454- 0017 Aug, PTSD (post-traumatic stress disorder) F43.10 and Borderline personality disorder F60.3 [facility] [id number] [place] [address] 93934- 1714 Aug, [facility] [id number] [place] [address] 38069- 3736 Aug, Mood disorder F39 ; PTSD (post-traumatic stress disorder) F43.10 ; Borderline personality disorder F60.3 and Adjustment disorder with mixed anxiety and depressed mood F43.23 [facility] [id number] [place] [address] 16104- 5074 Jul, [facility] [address], [place] [address]- 7104 Jul, Mood disorder F39 ; PTSD (post-traumatic stress disorder) F43.10 and Borderline personality disorder F60.3 [facility] [address], [place] [address]- 0025 Jul, [facility] [id number] [place] [address] 32942- 9367 Jun, Anxiety F41.9 ; ADHD (attention deficit hyperactivity disorder) F90.9 ; Night terror F51.4 ; Bulimia F50.2 ; Severe episode of recurrent major depressive disorder, with psychotic features F33.3 and PTSD ( post-traumatic stress disorder) F43.10 [facility] [address], [place] [address]- 0008 Jun, Borderline personality disorder F60.3 ; Mood disorder F39 and PTSD (post-traumatic stress disorder) F43.10 [facility] [address], [place] [address]- 3599 Jun, Anxiety F41.9 [facility] [id number] [place] [address] 80879- 8058 Jun, Anxiety F41.9 ; ADHD (attention deficit hyperactivity disorder) F90.9 ; Night terror F51.4 ; Bulimia F50.2 ; Severe episode of recurrent major depressive disorder, with psychotic features F33.3 and PTSD ( post-traumatic stress disorder) F43.10 [facility] [address], [place] [address]- 5304 Jun, ADHD (attention deficit hyperactivity disorder) F90.9 ; Night terror F51.4 ; Bulimia F50.2 ; Anxiety F41.9 ; Severe episode of recurrent major depressive disorder, with psychotic features F33.3 and PTSD ( post-traumatic stress disorder) F43.10 [facility] [id number] [place] [address] 96005- 4021 May, Anxiety F41.9 [facility] [address], [place] [address]- 1080 May, PTSD (post-traumatic stress disorder) F43.10 and Borderline personality disorder F60.3 [facility] [address], [place] [address]- 3658 Apr, [facility] [id number] [place] [address] [id number] March, Dental examination Z01.20 and Dental caries K02.9 [facility] [address], [place] [address]- 5856 March, Dental examination Z01.20 [facility] [id number] [place] [address] 88215- 3752 March, Tooth abscess K04.7 and Tooth pain K08.89 [facility] [address] 8[address]13- 7605 March, Borderline personality disorder F60.3 [facility] [address] 82868- 0505 March, ADHD (attention deficit hyperactivity disorder) F90.9 ; Night terror F51.4 ; Bulimia F50.2 and Anxiety F41.9 [facility] [id number] [place] [address] 66704- 3704 Feb, Borderline personality disorder F60.3 ; ADHD (attention deficit hyperactivity disorder) F90.9 ; Anxiety F41.9 ; Bulimia F50.2 ; Obsessive-compulsive disorder, unspecified type F42.9 and Night terror F51.4 [facility] [id number] [place] [address] 52716- 7245 Feb, [facility] [address] 45230- 0503 Feb, [facility] [id number] [place] [address] 02279- 0296 Jul, [facility] [id number] [place] [address] 09009- 0311 Jul, [facility] [id number] [place] [address] 33904- 8333 Jul, [facility] [id number] [place] [address] 42952- 2940 Jul, [facility] [address] 59953- 9021 Jun, [facility] [id number] [place] [address] 33424- 0908 Jun, [facility] [address] 59248- 5306 Jun, [facility] [place] [facility] [address] [id number] [place] [address] Jun, [facility] [place] [facility] [address] [id number] [place] [address]- 3831 Apr, [facility] [place] [facility] [address] [id number] [place] [address]- 4983 Apr, [facility] [place] [facility] [address] [id number] [place] [address]- 2615 March, [facility] [place] [facility] [address] [id number] [place] [address]- 9090 March, [facility] [place] [facility] [address] [id number] [place] [address]- 2846 Jan, [facility] [place] [facility] [address] [id number] [place] [address]- 0887 Jan, [facility] [place] [facility] [address] [id number] [place] [address]- 4247 Jan, [facility] [place] [facility] [address] [id number] [place] [address]- 6695 Jan, [facility] [place] [facility] [address] [id number] [place] [address]- 6668 Jan, [facility] [place] [facility] [address] [id number] [place] 1740 Dec, [facility] [place] [facility] [address] [id number] [place] [address]- 4564 Dec, [facility] [place] [facility] [address] [id number] [place] [address]- 6222 Oct, [facility] [place] [facility] [address] [id number] [place] [address]- 5456 Oct, [facility] [place] [facility] [address] [id number] [place] [address]- 9475 Oct, [facility] [place] [facility] [address] [id number] [place] [address]- 2541 Oct, [facility] [place] [facility] [address] [id number] [place] [address]- 8623 Sep, [facility] [place] [facility] [address] [id number] [place] [address]- 0259 Sep, [facility] [place] [facility] [address] [id number] [place] [address]- 7646 Sep, [facility] [place] [facility] [address] [id number] [place] [address]- 7295 Aug, [facility] [place] [facility] [address] [id number] [place] [address]- 8501 Aug, [facility] [place] [facility] [address] [id number] [place] [address]- 9323 Aug, [facility] [place] [facility] [address] [id number] [place] [address]- 1540 Aug, [facility] [place] [facility] [address] [id number] [place] [address]- 8358 Aug, [facility] [place] [facility] [address] [id number] [place] [address]- 2132 Aug, [facility] [place] [facility] [address] [id number] [place] [address]- 9551 Aug, [facility] [place] [facility] [address] [id number] [place] [address]- 1281 Jul, [facility] [place] [facility] [address] [id number] [place] [address]- 7237 Jun, [facility] [place] [facility] [address] [id number] [place] [address]- 8847 Jun, [facility] [place] [facility] [address] [id number] [place] [address] 2546 Jun, [facility] [place] [facility] [address] [id number] [place] [address]- 2328 Jun, [facility] [address] [id number] [place] [address]- 7608 Jun, [facility] [place] [facility] [address] [id number] [place] [address]- 3557 Jun, [facility] [place] [facility] [address] [id number] [place] [address]- 4195 May, [facility] [place] [facility] [address] [id number] [place] [address]- 1819 May, [facility] [address] [id number] [place] [address]- 2760 May, [facility] [place] [facility] [address] [id number] [place] [address]- 9025 May, [facility] [place] [facility] [address] [id number] [place] [address]- 6267 March, [facility] [place] [facility] [address] [id number] [place] [address]- 5289 March, [facility] [place] [facility] [address] [id number] [place] [address]- 8126 March, [facility] [place] [facility] [address] [id number] [place] [address]- 2862 Feb, [facility] [place] [facility] [address] [id number] [place] [address]- 1784 Feb, [facility] [place] [facility] [address] [id number] [place] [address]- 3581 Feb, [facility] [place] [facility] [address] [id number] [place] [address]- 9227 Feb, [facility] [place] [facility] [address] [id number] [place] [address]- 7756 Jan, [facility] [place] [facility] [address] [id number] [place] [address]- 7384 Jan, [facility] [place] [facility] [address] [id number] [place] [address]- 3787 Jan, [facility] [address] [id number] [place] [address]- 7386 Dec, [facility] [address] [id number] [place] [address]- 3416 14 Dec, 2012 [facility] [address] [id number] [place] [address]- 1116 Dec, [facility] [address] [id number] [place] [address] 2546 05 Dec, 2012 [facility] [address] [id number] [place] [address]- 6556 04 Dec, 2012 [facility] [address] [id number] [place] [address]- 0606 Nov, [facility] [address] [id number] [place] [address]- 1419 Nov, [facility] [address] [id number] [place] [address]- 5808 Nov, [facility] [address] [id number] [place] [address]- 9757 Nov, [facility] [address] [id number] [place] [address]- 7501 Oct, [facility] [address] [id number] [place] [address] 2546 Oct, [facility] [address] [id number] [place] [address] 2546 Oct, [facility] [address] [id number] [place] [address] 2546 Oct, [facility] [address] [id number] [place] [address] 2546 Oct, [facility] [address] [id number] [place] [address] 2546 Oct, [facility] [place] [facility] [address] [id number] [place] [address]- 9444 Oct, [facility] [place] [facility] [address] [id number] [place] [address]- 6116 Oct, [facility] [place] [facility] [address] [id number] [place] [address]- 3046 Oct, [facility] [place] [facility] [address] [id number] [place] [address]- 2886 Oct, [facility] [place] [facility] [address] [id number] [place] [address]- 1283 Oct, [facility] [place] [facility] [address] [id number] [place] [address]- 4481 Oct, [facility] [place] [facility] [address] [id number] [place] [address]- 3938 Oct, [facility] [place] [facility] [address] [id number] [place] [address]- 4743 Sep, [facility] [place] [facility] [address] [id number] [place] [address]- 2232 Sep, [facility] [place] [facility] [address] [id number] [place] [address]- 3104 Sep, [facility] [place] [facility] [address] [id number] [place] [address]- 4937 Sep, [facility] [place] [facility] [address] [id number], [place] [address]- 0950 Sep, [facility] [place] [facility] [address] [id number] [place] [address]- 7831 Sep, [facility] [place] [facility] [address] [id number] [place] [address]- 0492 Sep, [facility] [place] [facility] [address] [id number] [place] 6079 Sep, [facility] [place] [facility] [address] [id number], [place] [address]- 2527 Sep, [facility] [place] [facility] [address] [id number] [place] [address]- 4535 Sep, [facility] [place] [facility] [address] [id number] 5418 Sep, [facility] [place] [facility] [address] [facility] [id number] [place] [address]- 4313 Sep, [facility] [place] [facility] [address] [id number] [place] [address]- 1990 Aug, [facility] [place] [facility] [address] [id number] [place] [address]- 7947 Aug, [facility] [place] [facility] [address] [id number] [place] [address]- 7472 Aug, [facility] [place] [facility] [address] [facility] [id number], [place] [address]- 5265 Aug, [facility] [place] [facility] [address] [id number], [place] [address]- 9459 Aug, [facility] [place] [facility] [address] [id number], [place] [address]- 4661 Aug, [facility] [place] [facility] [address] [facility] [id number], [place] [address]- 7231 Aug, [facility] [place] [facility] [address] [id number], [place] [address]- 6606 Aug, [facility] [place] [facility] [address] [facility] [id number], [place] [address]- 4579 Aug, [facility] [place] [facility] [address] [id number], [place] [address]- 4279 Aug, [facility] [place] [facility] [address] [facility] [id number], [place] [address]- 5141 Aug, [facility] [place] [facility] [address] [facility] [id number][place] [address] Aug, [facility] [place] [facility] [address] [id number] [place] [address] 28 Jul, 2011 [facility] [place] [facility] [address] [id number] [place] [address] 27 Jul, 2011 [facility] [place] [facility] [address] [id number] [place] [address] 21 Jul, 2011 [facility] [place] [facility] [address] [id number] [place] [address] 10 Jul, 2011 [facility] [place] [facility] [address] [id number] [place] [address] 05 Jul, 2011 [facility] [place] [facility] [address] [id number] [place] [address] 04 Jul, 2012 [facility] [place] [facility] [address] [id number] [place] [address] Jun, [facility] [place] [facility] [address] [id number] [place] [address] Jun, [facility] [place] [facility] [address] [id number] [place] [address] Jun, [facility] [place] [facility] [address] [id number] [place] [address] May, [facility] [place] [facility] [address] [id number] [place] [address] May, [facility] [place] [facility] [address] [id number] [place] [address] May, [facility] [place] [facility] [address] [id number] [place] [address] May, [facility] [place] [facility] [address] [id number] [place] [address] May, [facility] [place] [facility] [address] [id number] [place] [address] May, [facility] [place] [facility] [address] [id number] [place] [address] Apr, [facility] [place] [facility] [address] [id number] [place] [address] 23 Feb, 2012 [facility] [place] [facility] [address] [id number] [place] [address] 18 Feb, 2012 [facility] [place] [facility] [address] [facility] [id number] [place] [address] 11 Feb, 2012 [facility] [place] [facility] [address] [facility] [id number] [place] [address] 10 Feb, 2012 [facility] [place] [facility] [address] [id number] [place] [address] 16 Jan, 2012 [facility] [place] [facility] [address] [facility] [id number] [place] [address]- [address] 12 Jan, 2012 [facility] [place] [facility] [id number] [place] [address] 29 Dec, 2011 [facility] [place] [facility] [address] [facility] [id number] [place] [address] 28 Dec, 2011 [facility] [place] [facility] [id number] [place] [address] 21 Dec, 2011 [facility] [place] [facility] [id number] [place] [address] 14 Dec, 2011 [facility] [place] [facility] [address] [id number] [place] [address] 14 Dec, 2011 [facility] [place] [facility] [address] [facility] [id number] [place] [address] 13 Dec, 2011 [facility] [place] [facility] [address] [facility] [id number] [place] [address] 09 Dec, 2011 [facility] [place] [facility] [address] [facility] [id number] [place] [address] 07 Dec, 2011 [facility] [place] [facility] [id number] [place] [address] 02 Dec, 2011 [facility] [place] [facility] [address] [id number] [place] [address] 30 Nov, 2011 [facility] [address] [id number] [place] [address] Nov, [facility] [place] [facility] [address] [id number] [place] [id number] Nov, [facility] [address] [id number] [place] [address] Nov, [facility] [place] [facility] [address] [id number] [place] [address] Nov, [facility] [place] [facility] [address] [id number] [place] [address] Nov, [facility] [place] [facility] [address] [id number] [place] [address] Nov, [facility] [place] [facility] [address] [id number] [place] [address] Nov, [facility] [address] [id number] [place] [address] Nov, [facility] [address] [id number] [place] [address] Oct, [facility] [address] [id number] [place] [address] Oct, [facility] [place] [facility] [address] [id number] [place] [address] Oct, [facility] [place] [facility] [address] [id number] [place] [address] Oct, [facility] [place] [facility] [address] [id number] [place] [address] Oct, [facility] [place] [facility] [address] [id number] [place] [address] Oct, [facility] [place] [facility] [address] [id number] [place] [address] 02 Sep, 2011 [facility] [place] [facility] [address] [id number] [place] [address]60 19 Aug, 2011 [facility] [place] [facility] [address] [id number] [place] [address] 19 Jul, 2011 [facility] [place] [facility] [address] [id number] [place] [address] 17 Nov, 2010 [facility] [place] [facility] [address] [id number] [place] [address]679 10 Nov, 2010 [facility] [place] [facility] [address] [id number] [place] [address] 23 Oct, 2010 [facility] [place] [facility] [address] [id number] [place] [address] 28[address] 10 Sep, 2010 [facility] [place] [facility] [address] [id number] [place] [address] Sep, [facility] [place] [facility] [address] [id number] [place] [address]- [address] 18 Aug, 2010 [facility] [place] [facility] [address] [id number] [place] [address] 14 Aug, 2010 [facility] [place] [facility] [address] [id number] [place] [address] 14 Aug, 2010 [facility] [place] [facility] [address] [id number] [address] 13 Feb, 2010 [facility] [place] [facility] [address] [id number], [place] [address] 10 Dec, 2009 [facility] [place] [facility] [address] [id number] [place] [address] 2446 30 Oct, 2009 [facility] [place] [facility] [address] [id number] [place] [address]- [address]6 Oct, [facility] [place] [facility] [address] [id number] [place] [address]- [address] 08 Oct, 2009 [facility] [place] [facility] [address] [facility] [id number] [place] [address] Sep, [facility] [address] [facility] [id number], [place] [address] Sep, [facility] [address] [facility] [id number], [place] [address] Sep, [facility] [address] [facility] [id number], [place] [address] Aug, [facility] [address] [facility] [id number][place] [address] Aug, IMMUNIZATIONS No Known Immunizations SOCIAL HISTORY Never Assessed REASON FOR VISIT f/u PLAN OF CARE Activity Details Follow Up 2 Weeks Reason:Mood disorder, PTSD, Borderline VITAL SIGNS MEDICATIONS Unknown Medications RESULTS No Results PROCEDURES Procedure Date Ordered Result Body Site Psychotherapy, patient &/family, 45 minutes, established patient Aug 16, 2017 INSTRUCTIONS MEDICATIONS ADMINISTERED No Known Medications MEDICAL (GENERAL) HISTORY Type Description Date Medical [...] to other organism, NEC Medical History Bulimia Medical History Dental caries Surgical History colonoscopy 2006 Surgical History removed tubes 2004 Surgical History EGD Hospitalization History mental health issues x2 [facility] [place] 2016 & 02/2017 Hospitalization History Surgery(s)/Childbirth(s)
--- OUTSIDE RECORDS SUMMARY | 2018-08-03 08:06 | XMS REPORT ---
Author Author RACHAEL CHEATHAM Organization [facility] Address [address] [place] [address] Care Team Providers Care Associate Financial Representative Name Role Phone RACHAEL CHEATHAM Unavailable PROBLEMS Type Condition ICD9-CM Code XAD31-LB Code Onset Dates Condition Status SNOMED Code Problem Anxiety F41.9 Active 48620657 Problem Severe episode of recurrent major depressive disorder, with psychotic features F33.3 Active 71494593 Problem PTSD (post-traumatic stress disorder) F43.10 Active 73290174 Problem Borderline personality disorder F60.3 Active 84268101 Problem Night terror F51.4 Active 19452456 Problem Cannabis use disorder, mild, abuse F12.10 Active 43734711 Problem Sciatica, unspecified side M54.30 Active 52808850 Problem Adjustment disorder with mixed anxiety and depressed mood F43.23 Active 96179591 Problem Mood disorder F39 Active 45204926 Problem Schizo affective schizophrenia F25.0 Active 133043937 Problem Bipolar 1 disorder F31.9 Active 775315164 ALLERGIES No Information ENCOUNTERS Encounter Location Date Diagnosis [facility] [id number] [place] [address] 55691- 8169 March, [facility] [address] [address] 39[address] March, [facility] [id number] [place] [address] 69439- 0177 Feb, [facility] [id number] [place] [address] 16550- 9670 Feb, [facility] [id number] [address] Feb, Breast cancer screening Z12.31 [facility] [id number] [place] [address] 16781- 4942 Feb, Mood disorder F39 and PTSD (post-traumatic stress disorder) F43.10 [facility] [id number] [place] [address] 14620- 0729 Feb, PTSD (post-traumatic stress disorder) F43.10 ; Mood disorder F39 ; Borderline personality disorder F60.3 and Cannabis use disorder, mild, abuse F12.10 [facility] [address] 17997- 0406 Feb, Schizo affective schizophrenia F25.0 ; Adjustment disorder with mixed anxiety and depressed mood F43.23 ; Night terror F51.4 ; Anxiety F41.9 and Borderline personality disorder F60.3 [facility] [address] 52806- 2845 Feb, [facility] [address] 95976- 2785 Feb, Mood disorder F39 [facility] [address] 19367- 0884 Feb, Annual physical exam Z00.00 ; BMI 40.0-44.9, adult Z68.41 and Nipple discharge N64.52 [facility] [id number] [place] [address] 63871- 2144 Jan, Schizo affective schizophrenia F25.0 ; Adjustment disorder with mixed anxiety and depressed mood F43.23 ; Night terror F51.4 ; Anxiety F41.9 and Borderline personality disorder F60.3 [facility] [id number] [place] [address] 53170- 0561 Jan, Mood disorder F39 ; PTSD (post-traumatic stress disorder) F43.10 ; Borderline personality disorder F60.3 and High risk medication use Z79.899 [facility] [id number] [place] [address] 06170- 3441 Dec, Anxiety F41.9 and Borderline personality disorder F60.3 [facility] [address] 52089- 9476 Dec, [facility] [id number] [place] [address] 94212- 2126 Dec, Anxiety F41.9 and Borderline personality disorder F60.3 [facility] [id number] [place] [address] 77392- 0286 Dec, [facility] [id number] [place] [address] 52716- 5266 Dec, [facility] [id number] [place] [address] 69787- 6436 Nov, Acute non-recurrent maxillary sinusitis J01.00 ; Mood disorder F39 and Sciatica, unspecified side M54.30 [facility] [id number] [place] [address] 30127- 3757 Nov, Mood disorder F39 ; PTSD (post-traumatic stress disorder) F43.10 and Borderline personality disorder F60.3 [facility] [id number] [place] [address] 21507- 0701 Nov, Anxiety F41.9 and Borderline personality disorder F60.3 [facility] [id number] [place] [address] 71219- 6128 Nov, [facility] [id number] [place] [address] 68157- 5148 Nov, Anxiety F41.9 and Sciatica, unspecified side M54.30 [facility] [id number] [place] [address] 61070- 6865 Oct, Anxiety F41.9 [facility] [id number] [place] [address] 10889- 0561 Oct, Mood disorder F39 ; PTSD (post-traumatic stress disorder) F43.10 ; Borderline personality disorder F60.3 and High risk medication use Z79.899 [facility] [address] [place] [address] [id number] Oct, Dental caries K02.9 and Dental examination Z01.20 [facility] [id number] [place] [address] 92201- 594 Sep, Dysuria R30.0 and Abdominal pain, right lower quadrant R10.31 [facility] [id number] [place] [address] 66602- 0646 Aug, Mood disorder F39 ; PTSD (post-traumatic stress disorder) F43.10 and Borderline personality disorder F60.3 [facility] [id number] [place] [address] 16045- 9158 Aug, [facility] [id number] [place] [address] 011757- 2195 Aug, [facility] [id number] [place] [address] 41003- 4205 Aug, Severe episode of recurrent major depressive disorder, with psychotic features F33.3 ; PTSD (post-traumatic stress disorder) F43.10 ; Adjustment disorder with mixed anxiety and depressed mood F43.23 and Borderline personality disorder F60.3 [facility] [id number] [place] [address] 91304- 1056 Aug, Mood disorder F39 ; PTSD (post-traumatic stress disorder) F43.10 and Borderline personality disorder F60.3 [facility] [id number] [place] [address] 70056- 8392 Aug, [facility] [id number] [place] [address] 89784- 6669 Aug, Bipolar 1 disorder F31.9 and Schizo affective schizophrenia F25.0 [facility] [id number] [place] [address] 47630- 5958 Aug, Mood disorder F39 [facility] [id number] [place] [address] 55390- 7001 Aug, Bipolar 1 disorder F31.9 and Schizo affective schizophrenia F25.0 [facility] [id number] [place] [address] 89227- 9489 Aug, Bipolar 1 disorder F31.9 and Schizo affective schizophrenia F25.0 [facility] [id number] [place] [address] 14691- 4275 Aug, [facility] [id number] [place] [address] 18600- 3242 Aug, PTSD (post-traumatic stress disorder) F43.10 and Borderline personality disorder F60.3 [facility] [id number] [place] [address] 53565- 4797 Aug, [facility] [id number] [place] [address] 81491- 3867 Aug, Mood disorder F39 ; PTSD (post-traumatic stress disorder) F43.10 ; Borderline personality disorder F60.3 and Adjustment disorder with mixed anxiety and depressed mood F43.23 [facility] [id number] [place] [address] 87042- 4684 Jul, [facility] [id number] [place] [address] 52989- 0719 Jul, Mood disorder F39 ; PTSD (post-traumatic stress disorder) F43.10 and Borderline personality disorder F60.3 [facility] [address] [place] [address] 58254- 4252 Jul, [facility] [id number] [place] [address] 09515- 1666 Jun, Anxiety F41.9 ; ADHD (attention deficit hyperactivity disorder) F90.9 ; Night terror F51.4 ; Bulimia F50.2 ; Severe episode of recurrent major depressive disorder, with psychotic features F33.3 and PTSD ( post-traumatic stress disorder) F43.10 [facility] [address] [address]- 2133 Jun, Borderline personality disorder F60.3 ; Mood disorder F39 and PTSD (post-traumatic stress disorder) F43.10 [facility] [address] [place] [address] 64731- 4006 Jun, Anxiety F41.9 [facility] [id number] [place] [address] 61883- 0830 Jun, Anxiety F41.9 ; ADHD (attention deficit hyperactivity disorder) F90.9 ; Night terror F51.4 ; Bulimia F50.2 ; Severe episode of recurrent major depressive disorder, with psychotic features F33.3 and PTSD ( post-traumatic stress disorder) F43.10 [facility] [address] [place] [address] 27016- 4362 Jun, ADHD (attention deficit hyperactivity disorder) F90.9 ; Night terror F51.4 ; Bulimia F50.2 ; Anxiety F41.9 ; Severe episode of recurrent major depressive disorder, with psychotic features F33.3 and PTSD ( post-traumatic stress disorder) F43.10 [facility] [id number] [place] [address] 77008- 6138 May, Anxiety F41.9 [facility] [id number] [place] [address] 93001- 1099 May, PTSD (post-traumatic stress disorder) F43.10 and Borderline personality disorder F60.3 [facility] [address] [place] [address] 88469- 4131 Apr, [facility] [id number] [place] [address] [id number] March, Dental examination Z01.20 and Dental caries K02.9 [facility] [id number] [place] [address] 09649- 9407 March, Dental examination Z01.20 [facility] [id number] [place] [address] 11756- 0068 March, Tooth abscess K04.7 and Tooth pain K08.89 [facility] [id number] [place] [address] 79617- 8490 March, Borderline personality disorder F60.3 [facility] [address] [address]- 3933 March, ADHD (attention deficit hyperactivity disorder) F90.9 ; Night terror F51.4 ; Bulimia F50.2 and Anxiety F41.9 [facility] [address] [address]- 3911 Feb, Borderline personality disorder F60.3 ; ADHD (attention deficit hyperactivity disorder) F90.9 ; Anxiety F41.9 ; Bulimia F50.2 ; Obsessive-compulsive disorder, unspecified type F42.9 and Night terror F51.4 [facility] [address] [place] [address] 07549- 8702 Feb, [facility] [address] [place] [address] 36013- 0133 Feb, [facility] [id number] [place] [address] 04775- 9262 Jul, [facility] [address] [place] [address] 85188- 9972 Jul, [facility] [id number] [place] [address] 76679- 3973 Jul, [facility] [address] [address]- 6443 Jul, [facility] [address] [address]- 3965 Jun, [facility] [address] [address]- 2694 Jun, [facility] [id number] [place] [address] 22662- 2246 Jun, [facility] [address] [address]- 3353 Jun, [facility] [id number] [place] [address] 71451- 6266 Apr, [facility] [place] [facility] [address] [id number] [place] [address]- 0949 Apr, [facility] [place] [facility] [address] [id number] [place] [address]- 3570 March, [facility] [place] [facility] [address] [id number] [place] [address]- 5671 March, [facility] [place] [facility] [address] [id number] [place] [address]- 3627 Jan, [facility] [place] [facility] [address] [id number] [place] [address]- 4506 Jan, [facility] [place] [facility] [address] [id number] [place] [address]- 7204 Jan, [facility] [place] [facility] [address] [id number] [place] [address]- 5413 Jan, [facility] [place] [facility] [address] [id number] [place] [address]- 3511 Jan, [facility] [place] [facility] [address] [id number] [place] [address]- 3005 Dec, [facility] [place] [facility] [address] [id number] [place] [address]- 9013 Dec, [facility] [place] [facility] [address] [id number] [place] [address]- 0967 Oct, [facility] [place] [facility] [address] [id number] [place] [address]- 6088 Oct, [facility] [place] [facility] [address] [id number] [place] [address]- 8826 Oct, [facility] [place] [facility] [address] [id number] [place] [address]- 6617 Oct, [facility] [place] [facility] [address] [id number] [place] [address]- 6338 Sep, [facility] [place] [facility] [address] [id number] [place] [address]- 2964 Sep, [facility] [place] [facility] [address] [id number] [place] [address]- 4921 Sep, [facility] [place] [facility] [address] [id number] [place] [address]- 6696 Aug, [facility] [place] [facility] [address] [id number] [place] [address]- 3702 Aug, [facility] [place] [facility] [address] [id number] [place] [address]- 6429 Aug, [facility] [place] [facility] [address] [id number] [place] 4271 Aug, [facility] [place] [facility] [address] [id number] [place] [address]- 0249 Aug, [facility] [place] [facility] [address] [id number] [place] [address]- 9450 Aug, [facility] [place] [facility] [address] [id number] [place] [address]- 9689 Aug, [facility] [place] [facility] [address] [id number] [place] [address]- 5813 Jul, [facility] [place] [facility] [address] [id number] [place] [address]- 9289 Jun, [facility] [place] [facility] [address] [id number] [place] [address]- 9642 Jun, [facility] [place] [facility] [address] [id number] [place] [address]- 4735 Jun, [facility] [place] [facility] [address] [id number] [place] [address]- 2071 Jun, [facility] [place] [facility] [address] [id number] [place] [address]- 4072 Jun, [facility] [place] [facility] [address] [id number] [place] [address]- 1310 Jun, [facility] [place] [facility] [address] [id number] [place] [address]- 5296 May, [facility] [address] [id number] [place] [address]- 6059 May, [facility] [address] [id number] [place] [address]- 5973 May, [facility] [address] [id number] [place] [address]- 6790 May, [facility] [address] [id number] [place] [address]- 9164 March, [facility] [address] [id number] [place] [address]- 1607 March, [facility] [address] [id number] [place] [address]- 4015 March, [facility] [address] [id number] [place] [address]- 8183 Feb, [facility] [address] [id number] [place] [address]- 7574 Feb, [facility] [address] [id number] [place] [address]- 1954 Feb, [facility] [address] [id number] [place] [address]- 9467 Feb, [facility] [address] [id number] [place] [address]- 6713 Jan, [facility] [address] [id number] [place] [address]- 1224 Jan, [facility] [address] [id number] [place] [address]- 4171 Jan, [facility] [address] [id number] [place] [address]- 5334 Dec, [facility] [address] [id number] [place] [address]- 2909 14 Dec, 2012 [facility] [address] [id number] [place] [address]- 6476 Dec, [facility] [address] [id number] [place] [address] 2546 05 Dec, 2012 [facility] [address] [id number] [place] [address]- 1786 Dec, [facility] [address] [id number] [place] [address]- 2793 Nov, [facility] [address] [id number] [place] [address]- 8094 Nov, [facility] [address] [id number] [place] [address]- 8223 Nov, [facility] [address] [id number] [place] [address]- 4565 Nov, [facility] [address] [id number] [place] [address]- 3863 Oct, [facility] [address] [id number] [place] [address]- 3691 Oct, [facility] [address] [id number] [place] [address]- 5404 Oct, [facility] [address] [id number] [place] [address]- 0186 Oct, [facility] [address] [id number] [place] [address]- 2546 Oct, [facility] [address] [id number] [place] [address] 2546 Oct, [facility] [address] [id number] [place] [address]- 2546 Oct, [facility] [address] [id number] [place] 1352 Oct, [facility] [place] [facility] [address] [id number] [place] [address]- 5196 Oct, [facility] [place] [facility] [address] [id number] [place] [address]- 3206 Oct, [facility] [place] [facility] [address] [id number] [place] [address] 2546 Oct, [facility] [place] [facility] [address] [id number] [place] [address]- 6916 Oct, [facility] [place] [facility] [address] [id number] [place] [address]- 8932 Oct, [facility] [place] [facility] [address] [id number] [place] [address]- 2982 Sep, [facility] [place] [facility] [address] [id number] [place] [address]- 0401 Sep, [facility] [place] [facility] [address] [id number] [place] [address]- 9973 Sep, [facility] [place] [facility] [address] [id number] [place] [address]- 0983 Sep, [facility] [place] [facility] [address] [id number] [place] [address]- 1470 Sep, [facility] [place] [facility] [address] [id number] [place] [address]- 3663 Sep, [facility] [place] [facility] [address] [id number] [place] [address]- 7638 Sep, [facility] [place] [facility] [address] [id number] [place] [address]- 0916 Sep, [facility] [place] [facility] [address] [id number] [place] [address]- 2556 Sep, [facility] [place] [facility] [address] [id number] [place] [address]- 0632 Sep, [facility] [place] [facility] [address] [id number] [place] [address]- 4544 Sep, [facility] [place] [facility] [address] [id number] [place] [address]- 4158 Sep, [facility] [place] [facility] [address] [id number] [place] [address]- 8536 Aug, [facility] [place] [facility] [address] [facility] [id number] [place] [address]- 7669 Aug, [facility] [place] [facility] [address] [id number] [place] [address]- 5916 Aug, [facility] [place] [facility] [address] [id number] [place] [address]- 0259 Aug, [facility] [place] [facility] [address] [id number] [place] [address]- 5027 Aug, [facility] [place] [facility] [address] [id number] [place] [address]- 2436 Aug, [facility] [place] [facility] [address] [id number] [place] [address]- 2061 Aug, [facility] [place] [facility] [address] [id number] [place] [address]- 4287 Aug, [facility] [place] [facility] [address] [facility] [id number] [place] [address]- 5352 Aug, [facility] [place] [facility] [address] [id number] [place] [address]- 1979 Aug, [facility] [place] [facility] [address] [id number] [place] [address]- 2296 Aug, [facility] [place] [facility] [address] [id number] [place] [address] 254 Aug, [facility] [place] [facility] [address] [facility] [id number] [place] [address] Jul, [facility] [place] [facility] [address] [id number] [place] [address] Jul, [facility] [place] [facility] [address] [id number] [place] [address] 21 Jul, 2012 [facility] [place] [facility] [address] [id number] [place] [address] 10 Jul, 2011 [facility] [place] [facility] [address] [id number] [place] [address] 05 Jul, 2012 [facility] [place] [facility] [address] [id number] [place] [address] 04 Jul, 2012 [facility] [place] [facility] [address] [id number] [place] [address] Jun, [facility] [place] [facility] [address] [id number] [place] [address] Jun, [facility] [place] [facility] [address] [id number] [place] [address] Jun, [facility] [place] [facility] [address] [id number] [place] [address] May, [facility] [place] [facility] [address] [id number] [place] [address] May, [facility] [place] [facility] [address] [id number] [place] [address] May, [facility] [place] [facility] [address] [id number] [place] [address] May, [facility] [place] [facility] [address] [id number] [place] [address] May, [facility] [place] [facility] [address] [id number] [place] [address] May, [facility] [place] [facility] [address] [id number] [place] [address] Apr, [facility] [place] [facility] [address] [id number] [place] [id number] Feb, [facility] [place] [facility] [address] [id number] [place] [address] 18 Feb, 2012 [facility] [place] [facility] [address] [id number] [place] [address] 11 Feb, 2012 [facility] [place] [facility] [address] [id number] [place] [address] 10 Feb, 2012 [facility] [place] [facility] [address] [id number] [place] [address] 16 Jan, 2012 [facility] [place] [facility] [address] [id number] [place] [address] 12 Jan, 2012 [facility] [place] [facility] [address] [id number] [place] [address] 29 Dec, 2011 [facility] [place] [facility] [address] [id number] [place] [address] 28 Dec, 2011 [facility] [place] [facility] [address] [id number] [place] [address]- [address] 21 Dec, 2011 [facility] [place] [facility] [address] [id number] [place] [address] 14 Dec, 2011 [facility] [place] [facility] [address] [id number] [place] [address] 14 Dec, 2011 [facility] [place] [facility] [address] [id number] [place] [address] 13 Dec, 2011 [facility] [place] [facility] [address] [id number] [place] [address] 09 Dec, 2011 [facility] [place] [facility] [address] [id number] [place] [address] 07 Dec, 2011 [facility] [place] [facility] [address] [id number] [place] [address]- [address] 02 Dec, 2011 [facility] [place] [facility] [address] [id number] [place] [address] 30 Nov, 2011 [facility] [place] [facility] [address] [id number] [place] [address] Nov, [facility] [place] [facility] [address] [id number] [place] [address] Nov, [facility] [address] [id number] [place] [address] Nov, [facility] [address] [id number] [place] [address] Nov, [facility] [address] [id number] [place] [address] 16 Nov, 2011 [facility] [address] [id number] [place] [address] Nov, [facility] [address] [address] [id number] [place] [address] Nov, [facility] [address] [id number] [place] [address] Nov, [facility] [address] [id number] [place] [address] Oct, [facility] [address] [id number] [place] [address] Oct, [facility] [address] [id number] [place] [address] Oct, [facility] [address] [facility] [id number] [place] [address] Oct, [facility] [address] [id number] [place] [address] Oct, [facility] [address] [id number] [place] [address] Oct, [facility] [address] [id number] [place] [address] Sep, [facility] [address] [id number] [place] [address] Aug, [facility] [address] [id number] [place] [address] Jul, [facility] [place] [facility] [address] [id number] [place] [address] 17 Nov, 2010 [facility] [place] [facility] [address] [id number] [place] [address] 10 Nov, 2010 [facility] [place] [facility] [address] [id number] [place] [address] 23 Oct, 2010 [facility] [place] [facility] [address] [id number] [place] [address] 10 Sep, 2010 [facility] [place] [facility] [address] [id number] [place] [address] Sep, [facility] [place] [facility] [address] [id number] [place] [address] 18 Aug, 2010 [facility] [place] [facility] [address] [id number] [place] [address] 14 Aug, 2010 [facility] [place] [facility] [address] [id number] [place] [address] 14 Aug, 2010 [facility] [place] [facility] [address] [id number] [place] [address] 13 Feb, 2010 [facility] [place] [facility] [address] [id number] [place] [address] 10 Dec, 2009 [facility] [place] [facility] [address] [id number] [place] [address] 30 Oct, 2009 [facility] [place] [facility] [address] [id number] [place] [address] Oct, [facility] [place] [facility] [address] [id number] [place] [address] 08 Oct, 2009 [facility] [place] [facility] [address] [id number] [place] [address] Sep, [facility] [place] [facility] [address] [id number] [place] [address] 12 Sep, 2009 [facility] [place] [facility] [address] [id number] [place] [address] Sep, [facility] [address] [facility] [id number] [place] [address] Aug, [facility] [address] [facility] [id number] [place] [address] Aug, IMMUNIZATIONS No Known Immunizations SOCIAL HISTORY Never Assessed REASON FOR VISIT Lab (walk-in) PLAN OF CARE VITAL SIGNS MEDICATIONS Unknown Medications RESULTS Name Result Date Reference Range TSH 2017-08-17 TSH 6.330 0.450-4.500 CBC 2017-08-17 WBC 7.7 3.4-10.8 RBC 4.35 3.77-5.28 Hemoglobin 13.1 11.1-15.9 Hematocrit 39.0 34.0-46.6 MCV 90 79-97 MCH 30.1 26.6-33.0 MCHC 33.6 31.5-35.7 RDW 13.3 12.3-15.4 Platelets 309 150-379 Neutrophils 50 Not Estab. Lymphs 35 Not Estab. Monocytes 8 Not Estab. Eos 6 Not Estab. Basos 1 Not Estab. Neutrophils (Absolute) 3.9 1.4-7.0 Lymphs (Absolute) 2.7 0.7-3.1 Monocytes(Absolute) 0.6 0.1-0.9 Eos (Absolute) 0.5 0.0-0.4 Baso (Absolute) 0.0 0.0-0.2 Immature Granulocytes 0 Not Estab. Immature Grans (Abs) 0.0 0.0-0.1 LITHIUM (ESKALITH(R)), SERUM 2017-08-17 [place] (Eskalith(R)), Serum 0.4 0.6-1.2 CMP 2017-08-17 Glucose, Serum 109 65-99 BUN 9 6-20 Creatinine, Serum 0.81 0.57-1.00 eGFR If NonAfricn Am 94 >59 eGFR If Africn Am 109 >59 BUN/Creatinine Ratio 11 9-23 Sodium, Serum 139 134-144 Potassium, Serum 4.2 3.5-5.2 Chloride, Serum 99 96-106 Carbon Dioxide, Total 22 18-29 Calcium, Serum 9.3 8.7-10.2 Protein, Total, Serum 6.7 6.0-8.5 Albumin, Serum 3.9 3.5-5.5 Globulin, Total 2.8 1.5-4.5 A/G Ratio 1.4 1.2-2.2 Bilirubin, Total <0.2 0.0-1.2 Alkaline Phosphatase, S 177 39-117 AST (SGOT) 48 0-40 ALT (SGPT) 251 0-32 PROCEDURES Procedure Date Ordered Result Body Site ASSAY THYROID STIM HORMONE Aug 17, 2017 COMPLETE CBC W/AUTO DIFF WBC Aug 17, 2017 COMPREHEN METABOLIC PANEL Aug 17, 2017 ASSAY OF LITHIUM Aug 17, 2017 VENIPUNCT, ROUTINE* Aug 17, 2017 INSTRUCTIONS MEDICATIONS ADMINISTERED No Known Medications [...] mental health issues x2 Ward Unit in [place] 2016 & 02/2017 Hospitalization History Surgery(s)/Childbirth(s)
--- OUTSIDE RECORDS SUMMARY | 2018-08-03 08:07 | XMS REPORT ---
Author Author RACHAEL CHEATHAM Organization [facility] Address [address] [place] [address] Care Team Providers Care Cable Braider Name Role Phone RACHAEL CHEATHAM Unavailable PROBLEMS Type Condition ICD9-CM Code [id number] Code Onset Dates Condition Status SNOMED Code Problem Anxiety F41.9 Active 28542758 Problem Severe episode of recurrent major depressive disorder, with psychotic features F33.3 Active 36841572 Problem PTSD (post-traumatic stress disorder) F43.10 Active 46327779 Problem Borderline personality disorder F60.3 Active 40802660 Problem Night terror F51.4 Active 86862751 Problem Cannabis use disorder, mild, abuse F12.10 Active 98021820 Problem Sciatica, unspecified side M54.30 Active 50508821 Problem Adjustment disorder with mixed anxiety and depressed mood F43.23 Active 57132530 Problem Mood disorder F39 Active 39032790 Problem Schizo affective schizophrenia F25.0 Active 094214205 Problem Bipolar 1 disorder F31.9 Active [id number] ALLERGIES No Information ENCOUNTERS Encounter Location Date Diagnosis [facility] [id number] [place] [address] 73946- 7303 March, [facility] [address] [address] March, [facility] [id number] [place] [address] 18516- 9113 Feb, [facility] [id number] [place] [address] 99972- 2156 Feb, [facility] [id number] [address] Feb, Breast cancer screening Z12.31 [facility] [id number] [place] [address] 56950- 5539 Feb, Mood disorder F39 and PTSD (post-traumatic stress disorder) F43.10 [facility] [id number] [place] [address] 87602- 2628 Feb, PTSD (post-traumatic stress disorder) F43.10 ; Mood disorder F39 ; Borderline personality disorder F60.3 and Cannabis use disorder, mild, abuse F12.10 [facility] [address] 39326- 6628 Feb, Schizo affective schizophrenia F25.0 ; Adjustment disorder with mixed anxiety and depressed mood F43.23 ; Night terror F51.4 ; Anxiety F41.9 and Borderline personality disorder F60.3 [facility] [place] [address] 07532- 1015 Feb, [facility] [address] 84977- 0141 Feb, Mood disorder F39 [facility] [address] 25526- 2121 Feb, Annual physical exam Z00.00 ; BMI 40.0-44.9, adult Z68.41 and Nipple discharge N64.52 [facility] [id number] [place] [address] 11062- 6377 Jan, Schizo affective schizophrenia F25.0 ; Adjustment disorder with mixed anxiety and depressed mood F43.23 ; Night terror F51.4 ; Anxiety F41.9 and Borderline personality disorder F60.3 [facility] [place] [id number] [place] [address] 35782- 9613 Jan, Mood disorder F39 ; PTSD (post-traumatic stress disorder) F43.10 ; Borderline personality disorder F60.3 and High risk medication use Z79.899 [facility] [id number] [place] [address] 98011- 1521 Dec, Anxiety F41.9 and Borderline personality disorder F60.3 [facility] [address] 84086- 7609 Dec, [facility] [address] [place] [address] 80108- 1606 Dec, Anxiety F41.9 and Borderline personality disorder F60.3 [facility] [id number] [place] [address] 28174- 2096 Dec, [facility] [id number] [place] [address] 32898- 7066 Dec, [facility] [id number] [place] [address] 20803- 1423 Nov, Acute non-recurrent maxillary sinusitis J01.00 ; Mood disorder F39 and Sciatica, unspecified side M54.30 [facility] [id number] [place] [address] 72665- 5026 Nov, Mood disorder F39 ; PTSD (post-traumatic stress disorder) F43.10 and Borderline personality disorder F60.3 [facility] [address] [place] [address] 83716- 9463 Nov, Anxiety F41.9 and Borderline personality disorder F60.3 [facility] [id number] [place] [address] 47270- 0267 Nov, [facility] [id number] [place] [address] 86724- 4752 Nov, Anxiety F41.9 and Sciatica, unspecified side M54.30 [facility] [id number] [place] [address] 40099- 2913 Oct, Anxiety F41.9 [facility] [id number] [place] [address] 60087- 9267 Oct, Mood disorder F39 ; PTSD (post-traumatic stress disorder) F43.10 ; Borderline personality disorder F60.3 and High risk medication use Z79.899 [facility] [address] [place] [address] [id number] Oct, Dental caries K02.9 and Dental examination Z01.20 [facility] [id number] [place] [address] 96069- 162 Sep, Dysuria R30.0 and Abdominal pain, right lower quadrant R10.31 [facility] [id number] [place] [address] 93427- 5136 Aug, Mood disorder F39 ; PTSD (post-traumatic stress disorder) F43.10 and Borderline personality disorder F60.3 [facility] [id number] [place] [address] 14056- 5476 Aug, [facility] [id number] [place] [address] 147905- 0760 Aug, [facility] [id number] [place] [address] 09550- 8207 Aug, Severe episode of recurrent major depressive disorder, with psychotic features F33.3 ; PTSD (post-traumatic stress disorder) F43.10 ; Adjustment disorder with mixed anxiety and depressed mood F43.23 and Borderline personality disorder F60.3 [facility] [id number] [place] [address] 44528- 7044 Aug, Mood disorder F39 ; PTSD (post-traumatic stress disorder) F43.10 and Borderline personality disorder F60.3 [facility] [id number] [place] [address] 71376- 8109 Aug, [facility] [id number] [place] [address] 29301- 2142 Aug, Bipolar 1 disorder F31.9 and Schizo affective schizophrenia F25.0 [facility] [id number] [place] [address] 47866- 7659 Aug, Mood disorder F39 [facility] [id number] [place] [address] 98517- 2425 Aug, Bipolar 1 disorder F31.9 and Schizo affective schizophrenia F25.0 [facility] [id number] [place] [address] 01186- 4877 Aug, Bipolar 1 disorder F31.9 and Schizo affective schizophrenia F25.0 [place] [id number] [place] [address] 76855- 1249 Aug, [facility] [facility] [id number] [place] [address] 04016- 9687 Aug, PTSD (post-traumatic stress disorder) F43.10 and Borderline personality disorder F60.3 [facility] [id number] [place] [address] 60724- 6097 Aug, [facility] [facility] [id number] [place] [address] 28029- 9286 Aug, Mood disorder F39 ; PTSD (post-traumatic stress disorder) F43.10 ; Borderline personality disorder F60.3 and Adjustment disorder with mixed anxiety and depressed mood F43.23 [place] [id number] [place] [address] 80534- 7126 Jul, [facility] [id number] [place] [address] 18906- 6394 Jul, Mood disorder F39 ; PTSD (post-traumatic stress disorder) F43.10 and Borderline personality disorder F60.3 [facility] [address] [place] [address] 76694- 5321 Jul, [facility] [id number] [place] [address] 93848- 7967 Jun, Anxiety F41.9 ; ADHD (attention deficit hyperactivity disorder) F90.9 ; Night terror F51.4 ; Bulimia F50.2 ; Severe episode of recurrent major depressive disorder, with psychotic features F33.3 and PTSD ( post-traumatic stress disorder) F43.10 [place] [address] [address] 1994 Jun, Borderline personality disorder F60.3 ; Mood disorder F39 and PTSD (post-traumatic stress disorder) F43.10 [facility] [address] [place] [address] 29577- 0118 Jun, Anxiety F41.9 [place] [id number] [place] [address] 24877- 9353 Jun, Anxiety F41.9 ; ADHD (attention deficit hyperactivity disorder) F90.9 ; Night terror F51.4 ; Bulimia F50.2 ; Severe episode of recurrent major depressive disorder, with psychotic features F33.3 and PTSD ( post-traumatic stress disorder) F43.10 [facility] [address] [place] [address] 54784- 2877 Jun, ADHD (attention deficit hyperactivity disorder) F90.9 ; Night terror F51.4 ; Bulimia F50.2 ; Anxiety F41.9 ; Severe episode of recurrent major depressive disorder, with psychotic features F33.3 and PTSD ( post-traumatic stress disorder) F43.10 [place] [id number] [place] [address] 15775- 7329 May, Anxiety F41.9 [place] [id number] [place] [address] 23247- 4505 May, PTSD (post-traumatic stress disorder) F43.10 and Borderline personality disorder F60.3 [place] [address] [place] [address] 87299- 1203 Apr, [facility] [id number] [place] [address] [id number] March, Dental examination Z01.20 and Dental caries K02.9 [place] [id number] [place] [address] 92986- 5813 March, Dental examination Z01.20 [place] [id number] [place] [address] 00068- 3959 March, Tooth abscess K04.7 and Tooth pain K08.89 [place] [id number] [place] [address] 98694- 2999 March, Borderline personality disorder F60.3 [facility] [address] [address]- 7793 March, ADHD (attention deficit hyperactivity disorder) F90.9 ; Night terror F51.4 ; Bulimia F50.[address] [facility] [address] [address]- 0787 Feb, Borderline personality disorder F60.3 ; ADHD (attention deficit hyperactivity disorder) F90.9 ; Anxiety F41.9 ; Bulimia F50.2 ; Obsessive-compulsive disorder, unspecified type F42.9 and Night terror F51.4 [facility] [address] [place] [address] 56672- 6642 Feb, [facility] [id number] [place] [address] 92837- 0223 Feb, [facility] [id number] [place] [address] 04319- 3519 Jul, [facility] [id number] [place] [address] 14720- 9672 Jul, [facility] [id number] [place] [address] 72994- 7326 Jul, [facility] [address] [address]- 2065 Jul, [facility] [address] [address]- 4940 Jun, [facility] [address] [address]- 4384 Jun, [facility] [id number] [place] [address] 40837- 7269 Jun, [facility] [address] [address]- 0046 Jun, [facility] [id number] [place] [address] 35537- 9920 Apr, [facility] [place] [facility] [address] [id number] [place] [address]- 4152 Apr, [facility] [place] [facility] [address] [id number] [place] [address]- 0785 March, [facility] [place] [facility] [address] [id number] [place] [address]- 6770 March, [facility] [place] [facility] [address] [id number] [place] [address]- 7202 Jan, [facility] [place] [facility] [address] [id number] [place] [address]- 5257 Jan, [facility] [place] [facility] [address] [id number] [place] [address]- 5125 Jan, [facility] [place] [facility] [address] [id number] [place] [address]- 7692 Jan, [facility] [place] [facility] [address] [id number] [place] [address]- 8519 Jan, [facility] [place] [facility] [address] [id number] [place] [address]- 2283 Dec, [facility] [place] [facility] [address] [id number] [place] [address]- 7355 Dec, [facility] [place] [facility] [address] [id number] [place] [address]- 8533 Oct, [facility] [place] [facility] [address] [id number] [place] [address]- 8510 Oct, [facility] [place] [facility] [address] [id number] [place] [address]- 9884 Oct, [facility] [place] [facility] [address] [id number] [place] [address]- 2973 Oct, [facility] [place] [facility] [address] [id number] [place] [address]- 9224 Sep, [facility] [place] [facility] [address] [id number] [place] [address]- 3247 Sep, [facility] [place] [facility] [address] [id number] [place] [address]- 1063 Sep, [facility] [place] [facility] [address] [id number] [place] [address]- 8494 Aug, [facility] [place] [facility] [address] [id number] [place] [address]- 8997 Aug, [facility] [place] [facility] [address] [id number] [place] [address]- 8796 Aug, [facility] [place] [facility] [address] [id number] [place] 9482 Aug, [facility] [place] [facility] [address] [id number] [place] [address]- 3624 Aug, [facility] [place] [facility] [address] [id number] [place] [address]- 4436 Aug, [facility] [place] [facility] [address] [id number] [place] [address]- 4113 Aug, [facility] [place] [facility] [address] [id number] [place] [address]- 5129 Jul, [facility] [place] [facility] [address] [id number] [place] [address]- 9894 Jun, [facility] [place] [facility] [address] [id number] [place] [address]- 5144 Jun, [facility] [place] [facility] [address] [id number] [place] [address]- 2279 Jun, [facility] [place] [facility] [address] [id number] [place] [address]- 9434 Jun, [facility] [place] [facility] [address] [id number] [place] [address]- 2462 Jun, [facility] [place] [facility] [address] [id number] [place] [address]- 1644 Jun, [facility] [place] [facility] [address] [id number] [place] [address]- 4640 May, [facility] [address] [id number] [place] [address]- 5090 May, [facility] [address] [id number] [place] [address]- 7220 May, [facility] [address] [id number] [place] [address]- 0016 May, [facility] [address] [id number] [place] [address]- 5933 March, [facility] [address] [id number] [place] [address]- 2208 March, [facility] [address] [id number] [place] [address]- 5107 March, [facility] [address] [id number] [place] [address]- 5953 Feb, [facility] [address] [id number] [place] [address]- 9156 Feb, [facility] [address] [id number] [place] [address]- 4831 Feb, [facility] [address] [id number] [place] [address]- 0116 Feb, [facility] [address] [id number] [place] [address]- 9520 Jan, [facility] [address] [id number] [place] [address]- 7737 Jan, [facility] [address] [id number] [place] [address]- 4091 Jan, [facility] [address] [id number] [place] [address]- 4127 Dec, [facility] [address] [id number] [place] [address]- 0290 14 Dec, 2012 [facility] [address] [id number] [place] [address]- 0656 Dec, [facility] [address] [id number] [place] [address] 2546 05 Dec, 2012 [facility] [address] [id number] [place] [address]- 4126 Dec, [facility] [address] [id number] [place] [address]- 9565 Nov, [facility] [address] [id number] [place] [address]- 7360 Nov, [facility] [address] [id number] [place] [address]- 6642 Nov, [facility] [address] [id number] [place] [address]- 3155 Nov, [facility] [address] [id number] [place] [address]- 1593 Oct, [facility] [address] [id number] [place] [address]- 0356 Oct, [facility] [address] [id number] [place] [address]- 6269 Oct, [facility] [address] [id number] [place] [address]- 2606 Oct, [facility] [address] [id number] [place] [address]- 2546 Oct, [facility] [address] [id number] [place] [address] 2546 Oct, [facility] [address] [id number] [place] [address]- 2546 Oct, [facility] [address] [id number] [place] 2995 Oct, [facility] [place] [facility] [address] [id number] [place] [address]- 8556 Oct, [facility] [place] [facility] [address] [id number] [place] [address]- 8476 Oct, [facility] [place] [facility] [address] [id number] [place] [address] 2546 Oct, [facility] [place] [facility] [address] [id number] [place] [address]- 9436 Oct, [facility] [place] [facility] [address] [id number] [place] [address]- 7541 Oct, [facility] [place] [facility] [address] [id number] [place] [address]- 1267 Sep, [facility] [place] [facility] [address] [id number] [place] [address]- 1967 Sep, [facility] [place] [facility] [address] [id number] [place] [address]- 9456 Sep, [facility] [place] [facility] [address] [id number] [place] [address]- 2693 Sep, [facility] [place] [facility] [address] [id number] [place] [address]- 2811 Sep, [facility] [place] [facility] [address] [id number] [place] [address]- 4086 Sep, [facility] [place] [facility] [address] [id number] [place] [address]- 9447 Sep, [facility] [place] [facility] [address] [id number] [place] [address]- 1667 Sep, [facility] [place] [facility] [address] [id number] [place] [address]- 9686 Sep, [facility] [place] [facility] [address] [id number] [place] [address]- 2126 Sep, [facility] [place] [facility] [address] [id number] [place] [address]- 0949 Sep, [facility] [place] [facility] [address] [id number] [place] [address]- 4254 Sep, [facility] [place] [facility] [address] [id number] [place] [address]- 2166 Aug, [facility] [place] [facility] [address] [facility] [id number] [place] [address]- 1464 Aug, [facility] [place] [facility] [address] [id number] [place] [address]- 1684 Aug, [facility] [place] [facility] [address] [id number] [place] [address]- 6948 Aug, [facility] [place] [facility] [address] [id number] [place] [address]- 9661 Aug, [facility] [place] [facility] [address] [id number] [place] [address]- 2630 Aug, [facility] [place] [facility] [address] [id number] [address]- 6542 Aug, [facility] [place] [facility] [address] [id number] [place] [address]- 0140 Aug, [facility] [place] [facility] [address] [facility] [id number] [place] [address]- 1185 Aug, [facility] [place] [facility] [address] [id number] [place] [address] Aug, [facility] [place] [facility] [address] [id number] [place] [address] Aug, [facility] [place] [facility] [address] [id number] [place] [address] 254 Aug, [facility] [place] [facility] [address] [facility] [id number] [place] [address] Jul, [facility] [place] [facility] [address] [id number] [place] [address] Jul, [facility] [place] [facility] [address] [id number] [place] [address] 21 Jul, 2012 [facility] [place] [facility] [address] [id number] [place] [address] 10 Jul, 2011 [facility] [place] [facility] [address] [id number] [place] [address] 05 Jul, 2012 [facility] [place] [facility] [address] [id number] [place] [address] 04 Jul, 2012 [facility] [place] [facility] [address] [id number] [place] [address]- [address] Jun, [facility] [place] [facility] [address] [id number] [place] [address] Jun, [facility] [place] [facility] [address] [id number] [place] [address] Jun, [facility] [place] [facility] [address] [id number] [place] [address] May, [facility] [place] [facility] [address] [id number] [place] [address] May, [facility] [place] [facility] [address] [id number] [place] [address] May, [facility] [place] [facility] [address] [id number] [place] [address] May, [facility] [place] [facility] [address] [id number] [place] [address] May, [facility] [place] [facility] [address] [id number] [place] [address] May, [facility] [place] [facility] [address] [id number] [place] [address]- [address] Apr, [facility] [place] [facility] [address] [id number] [place] [id number] [address] Feb, [facility] [place] [facility] [address] [id number] [place] [address] 18 Feb, 2012 [facility] [place] [facility] [address] [id number] [place] [address] 11 Feb, 2012 [facility] [place] [facility] [address] [id number] [place] [address]- [address] 10 Feb, 2012 [facility] [place] [facility] [address] [id number] [place] [address]- [address] 16 Jan, 2012 [facility] [place] [facility] [address] [id number] [place] [address]- [address] 12 Jan, 2012 [facility] [place] [facility] [address] [id number] [place] [address]- [address] 29 Dec, 2011 [facility] [place] [facility] [address] [id number] [place] [address]- [address] 28 Dec, 2011 [facility] [place] [facility] [address] [id number] [place] [address] 21 Dec, 2011 [facility] [place] [facility] [address] [id number] [place] [address]- [address] 14 Dec, 2011 [facility] [place] [facility] [address] [id number] [place] [address]- [address] 14 Dec, 2011 [facility] [place] [facility] [address] [id number] [place] [address] 13 Dec, 2011 [facility] [place] [facility] [address] [id number] [place] [address]- 79[address] 09 Dec, 2011 [facility] [place] [facility] [address] [id number] [place] [address]- [address] 07 Dec, 2011 [facility] [place] [facility] [address] [id number] [place] [address]- [address] 02 Dec, 2011 [facility] [place] [facility] [address] [id number] [place] [address]- [address] 30 Nov, 2011 [facility] [place] [facility] [address] [id number] [place] [address]- [address] Nov, [facility] [place] [facility] [address] [id number] [place] [address] Nov, [facility] [address] [id number] [place] [address] Nov, [facility] [address] [id number] [place] [address] Nov, [facility] [address] [id number] [place] [address]- [id number] 16 Nov, 2011 [facility] [address] [id number] [place] [address] Nov, [facility] [address] [id number] [place] [address] Nov, [facility] [address] [id number] [place] [address] Nov, [facility] [address] [id number] [place] [address] Oct, [facility] [address] [id number] [place] [address] Oct, [facility] [address] [id number] [place] [address] Oct, [facility] [address] [facility] [id number] [place] [address] Oct, [facility] [address] [id number] [place] [address] Oct, [facility] [address] [id number] [place] [address] Oct, [facility] [address] [id number] [place] [address] Sep, [facility] [address] [id number] [place] [address] Aug, [facility] [address] [id number] [place] [address] Jul, [facility] [place] [facility] [address] [id number] [place] [address] 17 Nov, 2010 [facility] [place] [facility] [address] [id number] [place] [address] 10 Nov, 2010 [facility] [place] [facility] [address] [id number] [place] [address] 23 Oct, 2010 [facility] [place] [facility] [address] [id number] [place] [address] 10 Sep, 2010 [facility] [place] [facility] [address] [id number] [place] [address] Sep, [facility] [place] [facility] [address] [id number] [place] [address] 18 Aug, 2010 [facility] [place] [facility] [address] [id number] [place] [address] 14 Aug, 2010 [facility] [place] [facility] [address] [id number] [place] [address] 14 Aug, 2010 [facility] [place] [facility] [address] [id number] [place] [address] 13 Feb, 2010 [facility] [place] [facility] [address] [id number] [place] [address] 10 Dec, 2009 [facility] [place] [facility] [address] [id number] [place] [address] 30 Oct, 2009 [facility] [place] [facility] [address] [id number] [place] [address] Oct, [facility] [place] [facility] [address] [id number] [place] [address] 08 Oct, 2009 [facility] [place] [facility] [address] [id number] [place] [address] Sep, [facility] [place] [facility] [address] [id number] [place] [address] 12 Sep, 2009 [facility] [place] [facility] [address] [id number] [place] [address] Sep, [facility] [address] [facility] [id number] [place] [address] Aug, [facility] [address] [facility] [id number] [place] [address] Aug, IMMUNIZATIONS No Known Immunizations SOCIAL HISTORY Never Assessed REASON FOR VISIT repository request PLAN OF CARE VITAL SIGNS MEDICATIONS Medication Instructions Dosage Frequency Start Date End Date Duration Status Gabapentin 600 MG Orally 3 times a day 1 tablet 8h 30 days Active [place] Carbonate 300 MG Orally 2 times a day 1 capsule 12h 90 days Active Minipress 1 MG Orally at bedtime 4 cap 30 days Active RESULTS No Results PROCEDURES No Known procedures INSTRUCTIONS MEDICATIONS ADMINISTERED No Known Medications MEDICAL [...] EGD Hospitalization History mental health issues x2 [place] [facility] in [place] 2016 & 02/2017 Hospitalization History Surgery(s)/Childbirth(s)
--- OUTSIDE RECORDS SUMMARY | 2018-08-03 08:07 | XMS REPORT ---
Author Author RACHAEL CHEATHAM Organization [facility] Address [address] [place] [address] Care Team Providers Care Concrete [employer] Fin[employer] Supervisor Name Role Phone RACHAEL CHEATHAM Unavailable PROBLEMS Type Condition ICD9-CM Code UHX14-MF Code Onset Dates Condition Status SNOMED Code Problem Anxiety F41.9 Active 48527170 Problem Severe episode of recurrent major depressive disorder, with psychotic features F33.3 Active 96818932 Problem PTSD (post-traumatic stress disorder) F43.10 Active 80135700 Problem Borderline personality disorder F60.3 Active 63043415 Problem Night terror F51.4 Active 92205375 Problem Cannabis use disorder, mild, abuse F12.10 Active 13674419 Problem Sciatica, unspecified side M54.30 Active 35449138 Problem Adjustment disorder with mixed anxiety and depressed mood F43.23 Active 96436777 Problem Mood disorder F39 Active 58094877 Problem Schizo affective schizophrenia F25.0 Active 786855717 Problem Bipolar 1 disorder F31.9 Active 220826190 ALLERGIES Substance Reaction Event Type Date Status Pseudoephedrine HCl ER unknown Drug Allergy Aug, Active Phenytoin rash Drug Allergy Aug, Active Penicillamine anaphylaxis Drug Allergy Aug, Active Cephalexin anaphylaxis Drug Allergy Aug, Active Albuterol unknown Drug Allergy Aug, Active ENCOUNTERS Encounter Location Date Diagnosis [facility] [address] [facility] [id number] [place] [address] March, [facility] [address] [facility] [id number] [place] [address] March, [facility] [address] [facility] [id number] [place] [address] Feb, [facility] [address] [facility] [id number] [place] [address] Feb, [facility] [address] [id number], [place] [address] 19 Feb, 2018 Breast cancer screening Z12.31 [id number] [place] [address] 26329- 7566 Feb, Mood disorder F39 and PTSD (post-traumatic stress disorder) F43.10 [place] [id number] [place] [address] 92658- 5779 Feb, PTSD (post-traumatic stress disorder) F43.10 ; Mood disorder F39 ; Borderline personality disorder F60.3 and Cannabis use disorder, mild, abuse F12.[id number] [place] [address] 79544- 8121 Feb, Schizo affective schizophrenia F25.0 ; Adjustment disorder with mixed anxiety and depressed mood F43.23 ; Night terror F51.4 ; Anxiety F41.9 and Borderline personality disorder F60.3 [id number] [place] [address] 96941- 4721 Feb, [place] [id number] [place] [address] 12523- 1676 Feb, Mood disorder F39 [place] [id number] [place] [address] 11472- 9886 Feb, Annual physical exam Z00.00 ; BMI 40.0-44.9, adult Z68.41 and Nipple discharge N64.52 [id number] [place] [address] 17163- 3285 Jan, Schizo affective schizophrenia F25.0 ; Adjustment disorder with mixed anxiety and depressed mood F43.23 ; Night terror F51.4 ; Anxiety F41.9 and Borderline personality disorder F60.3 [id number] [place] [address] 53276- 0276 Jan, Mood disorder F39 ; PTSD (post-traumatic stress disorder) F43.10 ; Borderline personality disorder F60.3 and High risk medication use Z79.[id number] [place] [address] 01386- 0876 Dec, Anxiety F41.9 and Borderline personality disorder F60.3 [facility] [address] [place] [id number] [place] [address] 44070- 9956 Dec, [facility] [address] [id number] [place] [address] 19175- 2726 Dec, Anxiety F41.9 and Borderline personality disorder F60.3 [facility] [address] [place] [id number] [place] [address] 36207- 2068 Dec, [facility] [address] [place] [id number] [place] [address] 10851- 2181 Dec, [facility] [address] [id number] [place] [address] 93878- 6565 Nov, Acute non-recurrent maxillary sinusitis J01.00 ; Mood disorder F39 and Sciatica, unspecified side M54.30 [facility] [address] [place] [id number] [place] [address] 93392- 6311 Nov, Mood disorder F39 ; PTSD (post-traumatic stress disorder) F43.10 and Borderline personality disorder F60.3 [facility] [id number] [place] [address] 50741- 9742 Nov, Anxiety F41.9 and Borderline personality disorder F60.3 [facility] [address] [place] [id number] [place] [address] 15270- 4446 Nov, [facility] [address] [place] [id number] [place] [address] 63618- 1130 Nov, Anxiety F41.9 and Sciatica, unspecified side M54.30 [facility] [address] [place] [id number] [place] [address] 88842- 6759 Oct, Anxiety F41.9 [facility] [address] [place] [id number] [place] [address] 88588- 5736 Oct, Mood disorder F39 ; PTSD (post-traumatic stress disorder) F43.10 ; Borderline personality disorder F60.3 and High risk medication use Z79.899 [facility] [address] [place] [id number] 11 Oct, 2017 Dental caries K02.9 and Dental examination Z01.20 [facility] [id number] [place] [address] 48698- 2528 13 Sep, 2017 Dysuria R30.0 and Abdominal pain, right lower quadrant R10.31 [facility] [address] [place] [id number] [place] [address] 13870- 1854 Aug, Mood disorder F39 ; PTSD (post-traumatic stress disorder) F43.10 and Borderline personality disorder F60.3 [facility] [address] [place] [id number] [place] [address] 01439- 7007 Aug, [facility] [address] [place] [id number] [place] [address] 77952- 1518 Aug, [facility] [address] [place] [id number] [place] [address] 36376- 8503 Aug, Severe episode of recurrent major depressive disorder, with psychotic features F33.3 ; PTSD (post-traumatic stress disorder) F43.10 ; Adjustment disorder with mixed anxiety and depressed mood F43.23 and Borderline personality disorder F60.3 [facility] [address] [address] 6246 Aug, Mood disorder F39 ; PTSD (post-traumatic stress disorder) F43.10 and Borderline personality disorder F60.3 [facility] [id number] [place] [address] 57216- 2696 Aug, [facility] [address] [place] [id number] [place] [address] 91307- 4926 Aug, Bipolar 1 disorder F31.9 and Schizo affective schizophrenia F25.0 [facility] [id number] [place] [address] 28018- 5030 Aug, Mood disorder F39 [place] [address] [address]- 4284 Aug, Bipolar 1 disorder F31.9 and Schizo affective schizophrenia F25.0 [facility] [id number] [place] [address] 42064- 0676 Aug, Bipolar 1 disorder F31.9 and Schizo affective schizophrenia F25.0 [facility] [address] [place] [id number] [place] [address] 88980- 6190 Aug, [facility] [id number] [place] [address] 06870- 3843 Aug, PTSD (post-traumatic stress disorder) F43.10 and Borderline personality disorder F60.3 [place] [id number] [place] [address] 52865- 1733 Aug, [place] [address] [place] [id number] [place] [address] 51195- 2743 Aug, Mood disorder F39 ; PTSD (post-traumatic stress disorder) F43.10 ; Borderline personality disorder F60.3 and Adjustment disorder with mixed anxiety and depressed mood F43.23 [place] [id number] [place] [address] 75603- 8947 Jul, [facility] [id number] [place] [address] 51084- 4275 Jul, Mood disorder F39 ; PTSD (post-traumatic stress disorder) F43.10 and Borderline personality disorder F60.3 [facility] [address] [address]- 2125 Jul, [facility] [address] [place] [id number] [place] [address] 70514- 8561 Jun, Anxiety F41.9 ; ADHD (attention deficit hyperactivity disorder) F90.9 ; Night terror F51.4 ; Bulimia F50.2 ; Severe episode of recurrent major depressive disorder, with psychotic features F33.3 and PTSD ( post-traumatic stress disorder) F43.10 [facility] [address] [address]- 7084 Jun, Borderline personality disorder F60.3 ; Mood disorder F39 and PTSD (post-traumatic stress disorder) F43.10 [facility] [address] [address]- 1467 Jun, Anxiety F41.9 [facility] [address] [place] [id number] [place] [address] 98442- 7817 Jun, Anxiety F41.9 ; ADHD (attention deficit hyperactivity disorder) F90.9 ; Night terror F51.4 ; Bulimia F50.2 ; Severe episode of recurrent major depressive disorder, with psychotic features F33.3 and PTSD ( post-traumatic stress disorder) F43.10 [place] [id number] [place] [address] 13445- 1797 Jun, ADHD (attention deficit hyperactivity disorder) F90.9 ; Night terror F51.4 ; Bulimia F50.2 ; Anxiety F41.9 ; Severe episode of recurrent major depressive disorder, with psychotic features F33.3 and PTSD ( post-traumatic stress disorder) F43.10 [place] [address] [place] [id number] [place] [address] 66902- 9628 May, Anxiety F41.9 [facility] [address] [place] [id number] [place] [address] 28472- 2530 May, PTSD (post-traumatic stress disorder) F43.10 and Borderline personality disorder F60.3 [facility] [address] [address]- 0456 Apr, [facility] [id number] [place] [address] [id number] March, Dental examination Z01.20 and Dental caries K02.9 [facility] [address] [place] [id number] [place] [address] 56696- 7289 March, Dental examination Z01.20 [place] [address] [place] [id number] [place] [address] 08669- 4906 March, Tooth abscess K04.7 and Tooth pain K08.89 [facility] [address] [place] [id number] [place] [address] 44701- 6920 March, Borderline personality disorder F60.3 [facility] [address] [place] [id number] [place] [address] 05807- 2996 March, ADHD (attention deficit hyperactivity disorder) F90.9 ; Night terror F51.4 ; Bulimia F50.2 and Anxiety F41.9 [facility] [address] [place] [id number] [place] [address] 01598- 8782 Feb, Borderline personality disorder F60.3 ; ADHD (attention deficit hyperactivity disorder) F90.9 ; Anxiety F41.9 ; Bulimia F50.2 ; Obsessive-compulsive disorder, unspecified type F42.9 and Night terror F51.4 [facility] [address] [place] [id number] [place] [address] 43173- 7830 Feb, [facility] [address] [place] [id number] [place] [address] 89042- 8744 Feb, [facility] [address] [place] [id number] [place] [address] 19842- 7773 Jul, [facility] [address] [place] [id number] [place] [address] 22611- 5259 Jul, [facility] [address] [place] [id number] [place] [address] 03474- 2548 Jul, [facility] [address] [place] [id number] [place] [address] 79632- 4053 Jul, [facility] [address] [place] [id number] [place] [address] 42355- 4482 Jun, [facility] [address] [place] [id number] [place] [address] 46977- 1768 Jun, [facility] [address] [place] [id number] [place] [address] 00293- 4871 Jun, [facility] [address] [id number] [place] [address]- 8377 Jun, [facility] [place] [facility] [address] [id number] [place] [address]- 7802 Apr, [facility] [place] [facility] [address] [id number] [place] [address]- 3835 Apr, [facility] [place] [facility] [address] [id number] [place] [address]- 6403 March, [facility] [place] [facility] [address] [id number] [place] [address]- 7567 March, [facility] [place] [facility] [address] [id number] [place] [address]- 0136 Jan, [facility] [place] [facility] [address] [id number] [place] [address]- 6376 Jan, [facility] [place] [facility] [address] [id number] [place] [address]- 5251 Jan, [facility] [place] [facility] [address] [id number] [place] [address]- 7169 Jan, [facility] [place] [facility] [address] [id number] [place] [address]- 7539 Jan, [facility] [place] [facility] [address] [id number] [place] [address]- 9945 Dec, [facility] [place] [facility] [address] [id number] [place] [address]- 0108 Dec, [facility] [place] [facility] [address] [id number] [place] 1325 Oct, [facility] [place] [facility] [address] [id number] [place] [address]- 8742 Oct, [facility] [place] [facility] [address] [id number] [place] [address]- 8449 Oct, [facility] [place] [facility] [address] [id number] [place] [address]- 6128 Oct, [facility] [place] [facility] [address] [id number] [place] [address]- 3833 Sep, [facility] [place] [facility] [address] [id number] [place] [address]- 6169 Sep, [facility] [place] [facility] [address] [id number] [place] [address]- 3169 Sep, [facility] [place] [facility] [address] [id number] [place] [address]- 1996 Aug, [facility] [place] [facility] [address] [id number] [place] [address]- 6549 Aug, [facility] [place] [facility] [address] [id number] [place] [address]- 2497 Aug, [facility] [place] [facility] [address] [facility] [id number] [place] [address]- 8318 Aug, [facility] [place] [facility] [address] [id number] [place] [address]- 4441 Aug, [facility] [place] [facility] [address] [facility] [id number] [place] [address]- 7466 Aug, [facility] [place] [facility] [address] [facility] [id number] [place] [address]- 4871 Aug, [facility] [place] [facility] [address] [id number] [place] [address]- 4480 Jul, [facility] [place] [facility] [address] [id number] [place] [address]- 5201 Jun, [facility] [place] [facility] [address] [id number] [place] [address]- 0234 Jun, [facility] [place] [facility] [address] [id number] [place] [address]- 1079 Jun, [facility] [place] [facility] [address] [facility] [id number] [place] [address]- 8241 Jun, [facility] [place] [facility] [address] [id number] [place] [address]- 2546 Jun, [facility] [address] [id number] [place] [address] 2546 Jun, [facility] [place] [facility] [address] [id number] [place] [address]- 2546 May, [facility] [address] [id number] [place] [address]- 7076 May, [facility] [address] [id number] [place] [address]- 2546 May, [facility] [address] [id number] [place] [address]- 2546 May, [facility] [address] [id number] [place] [address]- 8146 March, [facility] [address] [id number] [place] [address]- 5009 March, [facility] [address] [id number] [place] [address]- 8457 March, [facility] [address] [id number] [place] [address]- 6796 Feb, [facility] [address] [id number] [place] [address]- 1163 Feb, [facility] [place] [facility] [address] [id number] [place] [address]- 0016 Feb, [facility] [place] [facility] [address] [id number] [place] [address]- 2546 Feb, [facility] [place] [facility] [address] [id number] [place] [address]- 2546 Jan, [facility] [place] [facility] [address] [id number] [place] [address]- 2546 Jan, [facility] [place] [facility] [address] [id number] [place] [address]- 9516 Jan, [facility] [address] [id number] [place] [address]- 8340 Dec, [facility] [place] [facility] [address] [id number] [place] [address]- 9276 Dec, [facility] [place] [facility] [address] [id number] [place] [address]- 9116 Dec, [facility] [place] [facility] [address] [id number] [place] [address]- 4386 Dec, [facility] [place] [facility] [address] [id number] [place] [address]- 0696 Dec, [facility] [place] [facility] [address] [id number] [place] [address]- 4576 Nov, [facility] [place] [facility] [address] [id number] [place] [address]- 4561 Nov, [facility] [place] [facility] [address] [id number] [place] [address]- 8481 Nov, [facility] [place] [facility] [address] [id number] [place] [address]- 3744 Nov, [facility] [place] [facility] [address] [id number] [place] [address]- 7610 Oct, [facility] [place] [facility] [address] [id number] [place] [address]- 4255 Oct, [facility] [place] [facility] [address] [id number] [place] [address]- 9348 Oct, [facility] [place] [facility] [address] [id number] [place] [address] 2546 Oct, [facility] [place] [facility] [address] [id number] [place] [address]- 9548 Oct, [facility] [place] [facility] [address] [id number] [place] [address]- 2546 Oct, [facility] [place] [facility] [address] [id number] [place] [address]- 9804 Oct, [facility] [address] [id number] [place] [address]- 9406 Oct, [facility] [place] [facility] [address] [id number] [place] [address]- 2546 Oct, [facility] [address] [id number] [place] [address]- 7716 Oct, [facility] [place] [facility] [address] [id number] [place] [address]- 4254 Oct, [facility] [address] [id number] [place] [address]- 1747 Oct, [facility] [place] [facility] [address] [id number] [place] [address]- 3377 Oct, [facility] [place] [facility] [address] [id number] [place] [address]- 2919 Sep, [facility] [address] [id number] [place] [address]- 1782 Sep, [facility] [place] [facility] [address] [id number] [place] [address]- 3462 Sep, [facility] [address] [id number] [place] [address]- 3929 Sep, [facility] [place] [facility] [address] [id number] [place] [address]- 5495 Sep, [facility] [place] [facility] [address] [id number] [place] [address]- 3418 Sep, [facility] [place] [facility] [address] [id number] [place] [address]- 0927 Sep, [facility] [place] [facility] [address] [id number] [place] [address]- 0096 Sep, [facility] [place] [facility] [address] [id number] [place] [address]- 9783 Sep, [facility] [place] [facility] [address] [id number] [place] [address]- 2819 Sep, [facility] [place] [facility] [address] [id number] [place] 9488 Sep, [facility] [place] [facility] [address] [id number] [place] [address]- 8552 Sep, [facility] [place] [facility] [address] [id number] [place] [address]- 8764 Aug, [facility] [place] [facility] [address] [id number] [place] [address]- 5938 Aug, [facility] [place] [facility] [address] [id number] [place] [address]- 3929 Aug, [facility] [place] [facility] [address] [id number] [place] [address]- 1987 Aug, [facility] [place] [facility] [address] [id number] [place] [address]- 7870 Aug, [facility] [place] [facility] [address] [id number] [place] [address]- 3536 Aug, [facility] [place] [facility] [address] [facility] [id number] [place] [address]- 3210 Aug, [facility] [place] [facility] [address] [id number] [place] [address] Aug, [facility] [place] [facility] [address] [id number] [place] [address] Aug, [facility] [place] [facility] [address] [id number] [place] [address] Aug, [facility] [place] [facility] [address] [id number] [place] [address] Aug, [facility] [place] [facility] [address] [facility] [id number] [place] [address] Aug, [facility] [place] [facility] [address] [id number] [place] [address] 28 Jul, 2011 [facility] [place] [facility] [address] [id number] [place] [address] 27 Jul, 2011 [facility] [place] [facility] [address] [id number] [place] [address] 21 Jul, 2012 [facility] [place] [facility] [address] [id number] [place] [address] 10 Jul, 2012 [facility] [place] [facility] [address] [id number] [place] [address]- [address] 05 Jul, 2012 [facility] [place] [facility] [address] [id number] [place] [address] 04 Jul, 2012 [facility] [place] [facility] [address] [id number] [place] [address] Jun, [facility] [place] [facility] [address] [id number] [place] [address] Jun, [facility] [place] [facility] [address] [id number] [place] [address] Jun, [facility] [place] [facility] [address] [id number] [place] [address] May, [facility] [place] [facility] [address] [id number] [place] [address] May, [facility] [place] [facility] [address] [id number] [place] [address] 14 May, 2012 [facility] [place] [facility] [address] [id number] [place] [address] May, [facility] [place] [facility] [address] [id number] [place] [address] May, [facility] [place] [facility] [address] [facility] [id number] [place] [address] May, [facility] [place] [facility] [address] [id number] [place] [address] Apr, [facility] [place] [facility] [address] [id number] [place] [address] 23 Feb, 2012 [facility] [place] [facility] [address] [id number] [place] [address] 18 Feb, 2012 [facility] [place] [facility] [address] [id number] [place] [address] 11 Feb, 2012 [facility] [place] [facility] [address] [id number] [place] [address] 10 Feb, 2012 [facility] [place] [facility] [address] [id number] [place] [address] 16 Jan, 2012 [facility] [place] [facility] [address] [id number] [place] [address] 12 Jan, 2012 [facility] [place] [facility] [address] [id number] [place] [address] 29 Dec, 2011 [facility] [place] [facility] [address] [id number] [place] [address] 28 Dec, 2011 [facility] [place] [facility] [address] [id number] [place] [address] 21 Dec, 2011 [facility] [place] [facility] [address] [facility] [id number] [place] [address] 14 Dec, 2011 [facility] [place] [facility] [address] [id number] [place] [address] 14 Dec, 2011 [facility] [place] [facility] [address] [id number] [place] [address] 13 Dec, 2011 [facility] [place] [facility] [address] [id number] [place] [address]- [address] 09 Dec, 2011 [facility] [place] [facility] [address] [id number] [place] [address] 07 Dec, 2011 [facility] [place] [facility] [address] [id number] [place] [address] 02 Dec, 2011 [facility] [place] [facility] [address] [id number] [place] [address] 30 Nov, 2011 [facility] [address] [id number] [place] [address] Nov, [facility] [address] [id number] [place] [address] Nov, [facility] [address] [id number] [place] [address] Nov, [facility] [address] [address] [id number] [place] [id number] 17 Nov, 2011 [facility] [address] [id number] [place] [address] 16 Nov, 2011 [facility] [address] [id number] [place] [address] Nov, [facility] [address] [id number] [place] [address] Nov, [facility] [address] [id number] [place] [address] Nov, [facility] [address] [id number] [place] [address] Oct, [facility] [address] [id number] [place] [address] Oct, [facility] [address] [id number] [place] [address] Oct, [facility] [place] [facility] [address] [id number] [place] [address] Oct, [facility] [place] [facility] [address] [id number] [place] [address] Oct, [facility] [place] [facility] [address] [id number] [place] [address] Oct, [facility] [place] [facility] [address] [id number] [place] [address] Sep, [facility] [place] [facility] [address] [id number] [place] [address] 19 Aug, 2011 [facility] [place] [facility] [address] [id number] [place] [address] 19 Jul, 2011 [facility] [place] [facility] [address] [id number] [place] [address] 17 Nov, 2010 [facility] [place] [facility] [address] [id number] [place] [address] 10 Nov, 2010 [facility] [place] [facility] [address] [id number] [place] [address] 23 Oct, 2010 [facility] [place] [facility] [address] [id number] [place] [address] Sep, [facility] [place] [facility] [address] [id number] [place] [address] Sep, [facility] [place] [facility] [address] [id number] [place] [address] 18 Aug, 2010 [facility] [place] [facility] [address] [id number] [place] [address] 14 Aug, 2010 [facility] [place] [facility] [address] [id number] [place] [address] 14 Aug, 2010 [facility] [place] [facility] [address] [id number] [place] [address] 13 Feb, 2010 [facility] [place] [facility] [address] [id number] [place] [address] 10 Dec, 2009 [facility] [place] [facility] [address] [id number] [place] [id number] [address] 30 Oct, 2009 [facility] [place] [facility] [address] [id number] [place] [address] Oct, [facility] [place] [facility] [address] [id number] [place] [address] 08 Oct, 2009 [facility] [place] [facility] [address] [id number] [place] [address] Sep, [facility] [address] [facility] [id number] [place] [address] Sep, [facility] [address] [facility] [id number] [place] [address] Sep, [facility] [address] [facility] [id number] [place] [address] Aug, [facility] [address] [facility] [id number] [place] [address] Aug, IMMUNIZATIONS No Known Immunizations SOCIAL HISTORY Never Assessed REASON FOR VISIT medication request PLAN OF CARE VITAL SIGNS MEDICATIONS Medication Instructions Dosage Frequency Start Date End Date Duration Status Seroquel 100 MG Orally at bedtime 1 tablet Aug, 30 day(s) Active RESULTS No Results PROCEDURES [...] mental health issues x2 Ward Unit in [place] 2016 & 02/2017 Hospitalization History Surgery(s)/Childbirth(s)
--- OUTSIDE RECORDS SUMMARY | 2018-08-03 08:08 | XMS REPORT ---
Author Author PHIL MATUTE Organization [facility] Address [address] [place] [address] Care Team Providers Care Cardiac Monitor Technician Name Role Phone PHIL MATUTE Unavailable PROBLEMS Type Condition ICD9-CM Code [id number] Code Onset Dates Condition Status SNOMED Code Problem Anxiety F41.9 Active 17866983 Problem Severe episode of recurrent major depressive disorder, with psychotic features F33.3 Active 95278790 Problem PTSD (post-traumatic stress disorder) F43.10 Active 86610246 Problem Borderline personality disorder F60.3 Active 26569851 Problem Night terror F51.4 Active 58768605 Problem Cannabis use disorder, mild, abuse F12.10 Active 37319854 Problem Sciatica, unspecified side M54.30 Active 81307517 Problem Adjustment disorder with mixed anxiety and depressed mood F43.23 Active 51820449 Problem Mood disorder F39 Active 47075746 Problem Schizo affective schizophrenia F25.0 Active 063114214 Problem Bipolar 1 disorder F31.9 Active 998323006 ALLERGIES No Information ENCOUNTERS Encounter Location Date Diagnosis [facility] [id number] [place] [address] 27331- 9216 March, [facility] [id number] [place] [address] 28207- 7048 17 Feb, 2018 Mood disorder F39 and PTSD (post-traumatic stress disorder) F43.10 [facility] [id number] [place] [address] 42497- 6132 Feb, PTSD (post-traumatic stress disorder) F43.10 ; Mood disorder F39 ; Borderline personality disorder F60.3 and Cannabis use disorder, mild, abuse F12.10 [facility] [address] [address] Feb, Schizo affective schizophrenia F25.0 ; Adjustment disorder with mixed anxiety and depressed mood F43.23 ; Night terror F51.4 ; Anxiety F41.9 and Borderline personality disorder F60.3 [place] [id number] [place] [address] 20899- 3465 Feb, [place] [id number] [place] [address] 54251- 1370 Feb, Mood disorder F39 [place] [address] 09920- 4700 Feb, Annual physical exam Z00.00 ; BMI 40.0-44.9, adult Z68.41 and Nipple discharge N64.52 [place] [address] 70546- 3693 Jan, Schizo affective schizophrenia F25.0 ; Adjustment disorder with mixed anxiety and depressed mood F43.23 ; Night terror F51.4 ; Anxiety F41.9 and Borderline personality disorder F60.3 [place] [id number] [place] [address] 80781- 6411 Jan, Mood disorder F39 ; PTSD (post-traumatic stress disorder) F43.10 ; Borderline personality disorder F60.3 and High risk medication use Z79.899 [facility] [id number] [place] [address] 25116- 2800 Dec, Anxiety F41.9 and Borderline personality disorder F60.3 [place] [id number] [place] [address] 63836- 9792 Dec, [place] [id number] [place] [address] 36986- 0380 Dec, Anxiety F41.9 and Borderline personality disorder F60.3 [place] [id number] [place] [address] 59232- 0562 Dec, [place] [id number] [place] [address] 81586- 3683 Dec, [place] [id number] [place] [address] 75462- 2318 Nov, Acute non-recurrent maxillary sinusitis J01.00 ; Mood disorder F39 and Sciatica, unspecified side M54.30 [facility] [id number] [place] [address] 55194- 3619 Nov, Mood disorder F39 ; PTSD (post-traumatic stress disorder) F43.10 and Borderline personality disorder F60.3 [place] [address] 44562- 2028 Nov, Anxiety F41.9 and Borderline personality disorder F60.3 [place] [address] 157667- 6443 Nov, [place] [address] 65103- 7534 Nov, Anxiety F41.9 and Sciatica, unspecified side M54.30 [place] [id number] [place] [address] 98327- 0192 Oct, Anxiety F41.9 [facility] [address] 724044- 3682 Oct, Mood disorder F39 ; PTSD (post-traumatic stress disorder) F43.10 ; Borderline personality disorder F60.3 and High risk medication use Z79.899 [facility] [address] [id number] Oct, 2017 Dental caries K02.9 and Dental examination Z01.20 [place] [id number] [place] [address] 02449- 5141 13 Sep, 2017 Dysuria R30.0 and Abdominal pain, right lower quadrant R10.31 [facility] [id number] [place] [address] 78252- 4881 24 Aug, 2017 Mood disorder F39 ; PTSD (post-traumatic stress disorder) F43.10 and Borderline personality disorder F60.3 [place] [address] [place] [address]- 8696 Aug, [facility] [id number] [place] [address] 39696- 2352 Aug, [facility] [id number] [place] [address] 99299- 6859 Aug, Severe episode of recurrent major depressive disorder, with psychotic features F33.3 ; PTSD (post-traumatic stress disorder) F43.10 ; Adjustment disorder with mixed anxiety and depressed mood F43.23 and Borderline personality disorder F60.3 [facility] [address] [place] [address] 12763- 7884 Aug, Mood disorder F39 ; PTSD (post-traumatic stress disorder) F43.10 and Borderline personality disorder F60.3 [facility] [id number] [place] [address] 96877- 5514 Aug, [facility] [id number] [place] [address] 43039- 5037 Aug, Bipolar 1 disorder F31.9 and Schizo affective schizophrenia F25.0 [facility] [id number] [place] [address] 10980- 6023 Aug, Mood disorder F39 [facility] [id number] [place] [address] 21127- 4579 Aug, Bipolar 1 disorder F31.9 and Schizo affective schizophrenia F25.0 [facility] [address] [place] [address] 78677- 0685 Aug, Bipolar 1 disorder F31.9 and Schizo affective schizophrenia F25.0 [facility] [id number] [place] [address] 62937- 7027 Aug, [facility] [id number] [place] [address] 54208- 6091 Aug, PTSD (post-traumatic stress disorder) F43.10 and Borderline personality disorder F60.3 [facility] [id number] [address]- 3822 Aug, [place] [id number] [place] [address] 49513- 689 Aug, Mood disorder F39 ; PTSD (post-traumatic stress disorder) F43.10 ; Borderline personality disorder F60.3 and Adjustment disorder with mixed anxiety and depressed mood F43.23 [place] [id number] [place] [address] 08654- 6081 Jul, [place] [id number] [place] [address] 98593- 1635 Jul, Mood disorder F39 ; PTSD (post-traumatic stress disorder) F43.10 and Borderline personality disorder F60.3 [place] [id number] [place] [address] 83990- 2054 Jul, [place] [id number] [place] [address] 84593- 5952 Jun, Anxiety F41.9 ; ADHD (attention deficit hyperactivity disorder) F90.9 ; Night terror F51.4 ; Bulimia F50.2 ; Severe episode of recurrent major depressive disorder, with psychotic features F33.3 and PTSD ( post-traumatic stress disorder) F43.10 [place] [address] [address] 3942 Jun, Borderline personality disorder F60.3 ; Mood disorder F39 and PTSD (post-traumatic stress disorder) F43.10 [place] [address] [address]- 6324 Jun, Anxiety F41.9 [place] [address] [place] [address] 04702- 9870 Jun, Anxiety F41.9 ; ADHD (attention deficit hyperactivity disorder) F90.9 ; Night terror F51.4 ; Bulimia F50.2 ; Severe episode of recurrent major depressive disorder, with psychotic features F33.3 and PTSD ( post-traumatic stress disorder) F43.10 [place] [id number] [place] [address] 11552- 8229 Jun, ADHD (attention deficit hyperactivity disorder) F90.9 ; Night terror F51.4 ; Bulimia F50.2 ; Anxiety F41.9 ; Severe episode of recurrent major depressive disorder, with psychotic features F33.3 and PTSD ( post-traumatic stress disorder) F43.10 [place] [id number] [place] [address] 92084- 1424 May, Anxiety F41.9 [place] [id number] [place] [address] 18071- 3159 May, PTSD (post-traumatic stress disorder) F43.10 and Borderline personality disorder F60.3 [place] [id number] [place] [address] 17969- 8038 Apr, [facility] [id number] [place] [address] [id number] March, Dental examination Z01.20 and Dental caries K02.9 [place] [id number] [place] [address] 74893- 3374 March, Dental examination Z01.20 [place] [id number] [place] [address] 16572- 9440 March, Tooth abscess K04.7 and Tooth pain K08.89 [place] [id number] [place] [address] 08568- 7536 March, Borderline personality disorder F60.3 [place] [id number] [place] [address] 73634- 8162 March, ADHD (attention deficit hyperactivity disorder) F90.9 ; Night terror F51.4 ; Bulimia F50.2 and Anxiety F41.9 [place] [address] [place] [address] 07028- 5398 Feb, Borderline personality disorder F60.3 ; ADHD (attention deficit hyperactivity disorder) F90.9 ; Anxiety F41.9 ; Bulimia F50.2 ; Obsessive-compulsive disorder, unspecified type F42.9 and Night terror F51.4 [facility] [address] [facility] [id number] [place] [address]- 9916 14 Feb, 2015 [facility] [address] [facility] [id number] [place] [address]- 0936 Feb, [facility] [address] [facility] [id number] [address]- 3181 Jul, [facility] [address] [id number] [place] [address]- 3130 Jul, [facility] [address] [facility] [id number] [place] [address]- 0109 Jul, [facility] [address] [facility] [id number] [place] [address]- 4063 Jul, [facility] [id number] [address]- 2658 Jun, [facility] [address] [facility] [id number] [address]- 5875 Jun, [facility] [address] [facility] [id number] [place] [address]- 5074 Jun, [facility] [address] [facility] [id number] [address]- 3164 Jun, [facility] [address] [facility] [id number], [place] [address]- 2416 Apr, [facility] [address] [facility] [id number] [address]- 0210 Apr, [facility] [address] [facility] [id number] [address]- 8520 March, [facility] [address] [facility] [id number] [address]- 4910 March, [facility] [address] [facility] [id number] [address]- 9552 Jan, [facility] [address] [id number] [place] [address]- 0057 Jan, [facility] [place] [facility] [address] [id number] [place] [address]- 3016 Jan, [facility] [place] [facility] [address] [id number] [place] [address]- 7901 Jan, [facility] [place] [facility] [address] [id number] [place] [address]- 0208 Jan, [facility] [place] [facility] [address] [id number] [place] [address]- 6083 Dec, [facility] [place] [facility] [address] [id number] [place] [address]- 6026 Dec, [facility] [place] [facility] [address] [id number] [place] [address]- 1719 Oct, [facility] [place] [facility] [address] [id number] [place] [address]- 1355 Oct, [facility] [place] [facility] [address] [id number] [place] [address]- 0748 Oct, [facility] [place] [facility] [address] [id number] [place] [address]- 1484 Oct, [facility] [place] [facility] [address] [id number] [address]- 3611 Sep, [facility] [place] [facility] [address] [id number] [address]- 4807 Sep, [facility] [place] [facility] [address] [id number] [place] [address]- 8576 Sep, [facility] [place] [facility] [address] [id number] [place] [address]- 8411 Aug, [facility] [place] [facility] [address] [id number] 2965 Aug, [facility] [place] [facility] [address] [id number] [address]- 0474 Aug, [facility] [place] [facility] [address] [id number] [place] [address]- 4157 Aug, [facility] [place] [facility] [address] [id number] [place] [address]- 5764 Aug, [facility] [place] [facility] [address] [id number] [place] [address]- 4100 Aug, [facility] [place] [facility] [address] [id number] [place] [address]- 8288 Aug, [facility] [place] [facility] [address] [id number] [place] [address]- 5317 Jul, [facility] [place] [facility] [address] [id number] [place] [address]- 6031 Jun, [facility] [place] [facility] [address] [id number] [place] [address]- 9975 Jun, [facility] [place] [facility] [address] [id number] [place] [address]- 2365 Jun, [facility] [place] [facility] [address] [id number] [place] [address]- 3308 Jun, [facility] [place] [facility] [address] [id number] [place] [address]- 1688 Jun, [facility] [place] [facility] [address] [id number] [place] [address]- 5368 Jun, [facility] [place] [facility] [address] [id number] [place] [address]- 9208 May, [facility] [place] [facility] [address] [id number] [place] [address]- 2535 May, [facility] [place] [facility] [address] [id number] [place] [address]- 2895 May, [facility] [place] [facility] [address] [id number] [place] [address]- 2768 May, [facility] [place] [facility] [address] [id number] [place] [address]- 2037 March, [facility] [address] [id number] [place] [address]- 9043 March, [facility] [place] [facility] [address] [id number] [place] [address]- 3618 March, [facility] [address] [id number] [place] [address]- 3926 Feb, [facility] [address] [id number] [place] [address]- 8953 Feb, [facility] [address] [id number] [place] [address]- 3887 Feb, [facility] [address] [id number] [place] [address]- 0569 Feb, [facility] [address] [id number] [place] [address]- 9501 Jan, [facility] [address] [id number] [place] [address]- 1203 Jan, [facility] [address] [id number] [place] [address]- 9763 Jan, [facility] [address] [id number] [place] [address]- 0182 Dec, [facility] [place] [facility] [address] [id number] [place] [address]- 2145 Dec, [facility] [address] [id number] [place] [address]- 7117 Dec, [facility] [place] [facility] [address] [id number] [place] [address]- 3946 05 Dec, 2012 [facility] [place] [facility] [address] [id number] [place] [address]- 1906 04 Dec, 2012 [facility] [place] [facility] [address] [id number] [place] [address]- 2546 31 Nov, 2012 [facility] [address] [id number] [place] [address]- 8006 Nov, [facility] [place] [facility] [address] [id number] [place] [address]- 7796 19 Nov, 2012 [facility] [place] [facility] [address] [id number] [place] [address] 2546 14 Nov, 2012 [facility] [place] [facility] [address] [id number] [place] [address] 2546 Oct, [facility] [place] [facility] [address] [id number] [place] [address]- 4916 Oct, [facility] [place] [facility] [address] [id number] [place] [address]- 3326 Oct, [facility] [place] [facility] [address] [id number] [place] [address]- 1126 Oct, [facility] [place] [facility] [address] [id number] [place] [address]- 9239 Oct, [facility] [place] [facility] [address] [id number] [place] [address]- 0230 Oct, [facility] [place] [facility] [address] [id number] [place] [address]- 2546 Oct, [facility] [place] [facility] [address] [id number] [place] [address]- 2826 Oct, [facility] [place] [facility] [address] [id number] [place] [address]- 8646 Oct, [facility] [place] [facility] [address] [id number] [place] [address] 2546 Oct, [facility] [place] [facility] [address] [id number] [place] [address]- 2546 Oct, [facility] [place] [facility] [address] [id number] [place] [address]- 8786 Oct, [facility] [place] [facility] [address] [id number] [place] [address]- 4839 Oct, [facility] [place] [facility] [address] [id number] [place] [address]- 0797 Sep, [facility] [place] [facility] [address] [id number] [place] [address]- 1387 Sep, [facility] [place] [facility] [address] [id number] [place] [address], [place] [address]- 4427 Sep, [facility] [place] [facility] [address] [id number] [place] [address]- 5376 Sep, [facility] [place] [facility] [address] [id number] [place] [address], [place] [address]- 4550 Sep, [facility] [place] [facility] [address] [facility] [id number] [place] [address]- 2887 Sep, [facility] [place] [facility] [address] [facility] [id number] [place] [address], [place] [address]- 2313 Sep, [facility] [place] [facility] [address] [id number] [place] [address]- 3676 Sep, [facility] [place] [facility] [address] [facility] [id number] [place] [address]- 2206 Sep, [facility] [place] [facility] [address] [facility] [id number] [place] [address]- 5234 Sep, [facility] [place] [facility] [address] [id number] [place] [address]- 8024 Sep, [facility] [place] [facility] [address] [id number] [place] [address]- 7554 Sep, [facility] [place] [facility] [address] [id number] [place] [address]- 1079 Aug, [facility] [place] [facility] [address] [id number] [place] [address]- 7172 Aug, [facility] [place] [facility] [address] [id number] [place] [address]- 7465 Aug, [facility] [place] [facility] [address] [id number] [place] [address]- 5013 Aug, [facility] [place] [facility] [address] [id number] [place] [address]- 6885 Aug, [facility] [place] [facility] [address] [id number] [place] [address]- 6233 14 Aug, 2012 [facility] [place] [facility] [address] [id number] [place] [address]- 8770 Aug, [facility] [place] [facility] [address] [id number] [place] [address]- 5983 Aug, [facility] [place] [facility] [address] [id number] [place] [address]- 3239 Aug, [facility] [place] [facility] [address] [id number] [place] [address]- 5003 Aug, [facility] [place] [facility] [address] [id number] [place] [address]- 3264 Aug, [facility] [place] [facility] [address] [id number] [place] [address]- 2287 Aug, [facility] [place] [facility] [address] [id number] [address] 28 Jul, 2012 [facility] [place] [facility] [address] [id number] [address] 27 Sep, 2011 [facility] [facility] [address] [id number] [address] 2011 [facility] [facility] [address] [id number] [address] 10 Sep, 2011 [facility] [address] [id number] [address] 05 Sep, 2011 [facility] [facility] [address] [facility] [id number] [address] 04 Sep, 2011 [facility] [facility] [address] [id number] [address] Jun, [facility] [place] [facility] [address] [id number] [place] [address] Jun, [facility] [place] [facility] [address] [id number] [place] [address] Jun, [facility] [place] [facility] [address] [id number] [place] [address] May, [facility] [place] [facility] [address] [id number] [place] [address] May, [facility] [facility] [address] [id number] [place] [address] May, [facility] [address] [id number] [place] [address] May, [facility] [address] [id number] [place] [address] May, [facility] [place] [facility] [address] [id number] [place] [address] May, [facility] [place] [facility] [address] [id number] [place] [address] Apr, [facility] [facility] [address] [id number] [place] [address] Feb, [facility] [facility] [address] [id number] [place] [address] 18 Feb, 2012 [facility] [address] [id number] [place] [address]- [address] 11 Feb, 2012 [facility] [facility] [address] [id number] [place] [address]- [address] 10 Feb, 2012 [facility] [address] [id number] [place] [address]- [address] 16 Jan, 2012 [facility] [address] [id number] [place] [address] 12 Jan, 2012 [facility] [place] [facility] [address] [id number] [place] [address] 29 Dec, 2011 [facility] [facility] [address] [id number] [place] [address]46 28 Dec, 2011 [facility] [facility] [address] [id number] [place] [address] 21 Dec, 2011 [facility] [facility] [address] [id number] [place] [address]46 14 Dec, 2011 [facility] [facility] [address] [id number] [place] [address] 2546 14 Dec, 2011 [facility] [facility] [address] [id number] [place] [address]- [address] 13 Dec, 2011 [facility] [address] [id number] [place] [address] 2546 09 Dec, 2011 [facility] [address] [id number] [place] [address] 07 Dec, 2011 [facility] [address] [id number] [place] [address] 02 Dec, 2011 [facility] [address] [facility] [id number] [place] [address] 30 Nov, 2011 [facility] [facility] [address] [id number] [place] [address] Nov, [facility] [place] [facility] [address] [id number] [place] [address] 2540 24 Nov, 2011 [facility] [address] [id number] [place] [address] Nov, [facility] [address] [id number] [place] [address] 2546 17 Nov, 2011 [facility] [address] [id number] [place] [address] 2540 16 Nov, 2011 [facility] [address] [id number] [address] 10 Nov, 2011 [facility] [facility] [address] [id number] [place] [address] Nov, [facility] [address] [id number] [place] [address] Nov, [facility] [address] [id number] [place] [address] Oct, [facility] [place] [facility] [address] [id number] [place] [address] Oct, [facility] [address] [id number] [place] [address] Oct, [facility] [address] [id number] [place] [address] Oct, [facility] [address] [id number] [place] [address] Oct, [facility] [place] [facility] [address] [id number] [place] [address] Oct, [facility] [address] [id number] [place] [address] Sep, [facility] [address] [id number] [place] [address] Aug, [facility] [address] [id number] [place] [address] Jul, [facility] [place] [facility] [address] [id number] [address] Nov, [facility] [place] [facility] [address] [id number] [address] Nov, [facility] [place] [facility] [address] [id number] [place] [address] Oct, [facility] [place] [facility] [address] [id number] [address] Sep, [facility] [place] [facility] [address] [facility] [id number] [address] Sep, [facility] [address] [facility] [id number] [address] Aug, [facility] [address] [facility] [id number] [address] Aug, [facility] [address] [facility] [id number] [address] Aug, 2010 [facility] [address] [facility] [id number] [address] Feb, [facility] [address] [facility] [id number] [place] [address] Dec, [facility] [address] [facility] [id number] [address] Oct, [facility] [address] [facility] [id number] [address] Oct, [facility] [id number] [address] Oct, [facility] [address] [facility] [id number] [address] Sep, [facility] [id number], [place] [address] Sep, [facility] [address] [facility] [id number], [place] [address] Sep, [facility] [address] [id number] [address] Aug, [facility] [address] [facility] [id number] [address] Aug, IMMUNIZATIONS No Known Immunizations SOCIAL HISTORY Never Assessed REASON FOR VISIT Controlled Med Refill PLAN OF CARE VITAL SIGNS MEDICATIONS Medication Instructions Dosage Frequency Start Date End Date Duration Status Klonopin 1 MG Orally Twice a day 1 tablet 12h May, 28 days Active RESULTS No Results PROCEDURES No [...] mental health issues x2 Ward Unit in [place] 2016 & 02/2017 Hospitalization History Surgery(s)/Childbirth(s)
--- OUTSIDE RECORDS SUMMARY | 2018-08-03 08:08 | XMS REPORT ---
Author Author ESPERANZA LUCI Organization [facility] Address [address] [place] [address] Care Team Providers Care Vp Transportation Name Role Phone LUCI MATA Unavailable PROBLEMS Type Condition ICD9-CM Code [id number] Code Onset Dates Condition Status SNOMED Code Problem Anxiety F41.9 Active 46517922 Problem Severe episode of recurrent major depressive disorder, with psychotic features F33.3 Active 90137381 Problem PTSD (post-traumatic stress disorder) F43.10 Active 03345826 Problem Borderline personality disorder F60.3 Active 54413679 Problem Night terror F51.4 Active 87809846 Problem Cannabis use disorder, mild, abuse F12.10 Active 77965179 Problem Sciatica, unspecified side M54.30 Active 13977150 Problem Adjustment disorder with mixed anxiety and depressed mood F43.23 Active 62603046 Problem Mood disorder F39 Active 99464909 Problem Schizo affective schizophrenia F25.0 Active 059125035 Problem Bipolar 1 disorder F31.9 Active 599212440 ALLERGIES Substance Reaction Event Type Date Status Pseudoephedrine HCl ER unknown Drug Allergy Jun, Active Phenytoin rash Drug Allergy Jun, Active Penicillamine anaphylaxis Drug Allergy Jun, Active Cephalexin anaphylaxis Drug Allergy Jun, Active Albuterol unknown Drug Allergy Jun, Active ENCOUNTERS Encounter Location Date Diagnosis [facility] [address] [facility] [id number] [address] March, [facility] [address] [id number] [address] Feb, Breast cancer screening Z12.31 [facility] [address] [id number] [address] 17 Feb, 2018 Mood disorder F39 and PTSD (post-traumatic stress disorder) F43.10 [facility] [id number] [place] [address] 42343- 6672 Feb, PTSD (post-traumatic stress disorder) F43.10 ; Mood disorder F39 ; Borderline personality disorder F60.3 and Cannabis use disorder, mild, abuse F12.10 [facility] [id number] [place] [address] 20450- 7409 Feb, Schizo affective schizophrenia F25.0 ; Adjustment disorder with mixed anxiety and depressed mood F43.23 ; Night terror F51.4 ; Anxiety F41.9 and Borderline personality disorder F60.3 [facility] [id number] [place] [address] 07746- 0698 Feb, [facility] [id number] [place] [address] 49122- 2616 Feb, Mood disorder F39 [facility] [id number] [place] [address] 96100- 3645 Feb, Annual physical exam Z00.00 ; BMI 40.0-44.9, adult Z68.41 and Nipple discharge N64.52 [facility] [id number] [place] [address] 33845- 3361 Jan, Schizo affective schizophrenia F25.0 ; Adjustment disorder with mixed anxiety and depressed mood F43.23 ; Night terror F51.4 ; Anxiety F41.9 and Borderline personality disorder F60.3 [facility] [id number] [place] [address] 14059- 3254 Jan, Mood disorder F39 ; PTSD (post-traumatic stress disorder) F43.10 ; Borderline personality disorder F60.3 and High risk medication use Z79.899 [facility] [id number] [place] [address] 31021- 9781 Dec, Anxiety F41.9 and Borderline personality disorder F60.3 [facility] [id number] [place] [address] 50967- 6567 Dec, [facility] [id number] [place] [address] 21627- 9860 Dec, Anxiety F41.9 and Borderline personality disorder F60.3 [facility] [id number] [place] [address] 35136- 1662 Dec, [facility] [id number] [place] [address] 48837- 7827 Dec, [facility] [id number] [place] [address] 01899- 6522 Nov, Acute non-recurrent maxillary sinusitis J01.00 ; Mood disorder F39 and Sciatica, unspecified side M54.30 [facility] [id number] [place] [address] 79076- 9818 Nov, Mood disorder F39 ; PTSD (post-traumatic stress disorder) F43.10 and Borderline personality disorder F60.3 [facility] [id number] [place] [address] 74184- 3716 Nov, Anxiety F41.9 and Borderline personality disorder F60.3 [facility] [id number] [place] [address] 23249- 8973 Nov, [facility] [id number] [place] [address] 27007- 0639 Nov, Anxiety F41.9 and Sciatica, unspecified side M54.30 [facility] [id number] [place] [address] 09226- 3582 Oct, Anxiety F41.9 [facility] [id number] [place] [address] 49029- 4520 Oct, Mood disorder F39 ; PTSD (post-traumatic stress disorder) F43.10 ; Borderline personality disorder F60.3 and High risk medication use Z79.899 [facility] [address] [place] [address] [id number] 11 Oct, 2017 Dental caries K02.9 and Dental examination Z01.20 [facility] [id number] [place] [address] 38153- 3676 Sep, Dysuria R30.0 and Abdominal pain, right lower quadrant R10.31 [facility] [id number] [place] [address] Aug, Mood disorder F39 ; PTSD (post-traumatic stress disorder) F43.10 and Borderline personality disorder F60.3 [facility] [id number] [place] [address] 69198- 5121 Aug, [facility] [id number] [place] [address] 90988- 5767 Aug, [facility] [id number] [place] [address] 18069- 3939 Aug, Severe episode of recurrent major depressive disorder, with psychotic features F33.3 ; PTSD (post-traumatic stress disorder) F43.10 ; Adjustment disorder with mixed anxiety and depressed mood F43.23 and Borderline personality disorder F60.3 [facility] [id number] [place] [address] 34914- 5025 Aug, Mood disorder F39 ; PTSD (post-traumatic stress disorder) F43.10 and Borderline personality disorder F60.3 [facility] [id number] [place] [address] 99804- 9699 Aug, [facility] [id number] [place] [address] 71398- 1875 Aug, Bipolar 1 disorder F31.9 and Schizo affective schizophrenia F25.0 [facility] [address] [place] [address] 83949- 1655 Aug, Mood disorder F39 [facility] [id number] [place] [address] 75079- 7095 Aug, Bipolar 1 disorder F31.9 and Schizo affective schizophrenia F25.0 [facility] [address] [place] [address] 08144- 3602 Aug, Bipolar 1 disorder F31.9 and Schizo affective schizophrenia F25.0 [facility] [id number] [place] [address] 72968- 6714 Aug, [facility] [id number] [place] [address] 26812- 6348 Aug, PTSD (post-traumatic stress disorder) F43.10 and Borderline personality disorder F60.3 [facility] [id number] [place] [address] 90201- 5158 Aug, [facility] [id number] [place] [address] 81801- 1815 Aug, Mood disorder F39 ; PTSD (post-traumatic stress disorder) F43.10 ; Borderline personality disorder F60.3 and Adjustment disorder with mixed anxiety and depressed mood F43.23 [facility] [facility] [id number] [place] [address] 05840- 2431 Jul, [place] [address] 01850- 8481 Jul, Mood disorder F39 ; PTSD (post-traumatic stress disorder) F43.10 and Borderline personality disorder F60.3 [facility] [id number] [place] [address] 65162- 7093 Jul, [facility] [id number] [place] [address] 33347- 3897 Jun, Anxiety F41.9 ; ADHD (attention deficit hyperactivity disorder) F90.9 ; Night terror F51.4 ; Bulimia F50.2 ; Severe episode of recurrent major depressive disorder, with psychotic features F33.3 and PTSD ( post-traumatic stress disorder) F43.10 [facility] [id number] [place] [address] 88658- 6181 Jun, Borderline personality disorder F60.3 ; Mood disorder F39 and PTSD (post-traumatic stress disorder) F43.10 [place] [address] [place] [address] 55495- 5188 Jun, Anxiety F41.9 [address] [place] [address] 39921- 2009 Jun, Anxiety F41.9 ; ADHD (attention deficit hyperactivity disorder) F90.9 ; Night terror F51.4 ; Bulimia F50.2 ; Severe episode of recurrent major depressive disorder, with psychotic features F33.3 and PTSD ( post-traumatic stress disorder) F43.10 [facility] [id number] [place] [address] 46678- 6900 Jun, ADHD (attention deficit hyperactivity disorder) F90.9 ; Night terror F51.4 ; Bulimia F50.2 ; Anxiety F41.9 ; Severe episode of recurrent major depressive disorder, with psychotic features F33.3 and PTSD ( post-traumatic stress disorder) F43.10 [facility] [id number] [place] [address] 39436- 8944 May, Anxiety F41.9 [place] [address] 13071- 1503 May, PTSD (post-traumatic stress disorder) F43.10 and Borderline personality disorder F60.3 [facility] [id number] [place] [address] 33845- 0477 Apr, [facility] [address] [place] [address] [id number] March, Dental examination Z01.20 and Dental caries K02.9 [facility] [id number] [place] [address] 39204- 2490 March, Dental examination Z01.20 [facility] [id number] [place] [address] 69268- 2537 March, Tooth abscess K04.7 and Tooth pain K08.89 [facility] [id number] [place] [address] 55296- 6274 March, Borderline personality disorder F60.3 [facility] [id number] [place] [address] 17610- 5831 March, ADHD (attention deficit hyperactivity disorder) F90.9 ; Night terror F51.4 ; Bulimia F50.2 and Anxiety F41.9 [facility] [id number] [address]- 0203 Feb, Borderline personality disorder F60.3 ; ADHD (attention deficit hyperactivity disorder) F90.9 ; Anxiety F41.9 ; Bulimia F50.2 ; Obsessive-compulsive disorder, unspecified type F42.9 and Night terror F51.4 [facility] [address] [address]- 1236 Feb, [facility] [id number] [place] [address] 79824- 2629 Feb, [facility] [id number] [address]- 9491 Jul, [facility] [id number] [place] [address] 62921- 3382 Jul, [facility] [address] [address]- 7214 Jul, [facility] [id number] [address]- 0980 Jul, [facility] [address] [address]- 5463 Jun, [facility] [address] [address]- 8651 Jun, [facility] [address] [address]- 4322 Jun, [facility] [id number] [address]- 6823 Jun, [facility] [address] [address]- 0521 Apr, [facility] [address] [place] [address] 25521- 8449 Apr, [facility] [place] [facility] [address] [id number] [place] [address]- 0161 March, [facility] [place] [facility] [address] [id number] [place] [address]- 9414 March, [facility] [place] [facility] [address] [id number] [place] [address]- 2725 Jan, [facility] [place] [facility] [address] [id number] [place] [address]- 7673 Jan, [facility] [place] [facility] [address] [id number] [place] [address]- 6169 Jan, [facility] [place] [facility] [address] [id number] [place] [address]- 7721 Jan, [facility] [place] [facility] [address] [id number] [place] [address]- 0696 Jan, [facility] [place] [facility] [address] [id number] [place] [address]- 6869 Dec, [facility] [place] [facility] [address] [id number] [place] [address]- 9735 Dec, [facility] [place] [facility] [address] [id number] [place] [address]- 1395 Oct, [facility] [place] [facility] [address] [id number] [place] [address]- 4028 Oct, [facility] [place] [facility] [address] [id number] [place] [address] 2548 Oct, [facility] [place] [facility] [address] [id number] [place] [address]- 2540 Oct, [facility] [place] [facility] [address] [id number] [place] [address]- 2507 Sep, [facility] [place] [facility] [address] [id number] [place] [address]- 2542 Sep, [facility] [place] [facility] [address] [id number] [place] [address]- 1474 Sep, [facility] [place] [facility] [address] [id number] [place] 8572 Aug, [facility] [place] [facility] [address] [id number] [place] 6739 Aug, [facility] [place] [facility] [address] [id number] [place] [address]- 8946 Aug, [facility] [place] [facility] [address] [id number] [place] [address]- 2757 Aug, [facility] [place] [facility] [address] [id number] [place] [address]- 5709 Aug, [facility] [place] [facility] [address] [id number] [place] [address]- 2733 Aug, [facility] [place] [facility] [address] [id number] [place] [address]- 7817 Aug, [facility] [place] [facility] [address] [id number] [place] [address]- 6765 Jul, [facility] [place] [facility] [address] [id number] [place] [address]- 2832 Jun, [facility] [place] [facility] [address] [id number] [place] [address]- 2325 Jun, [facility] [place] [facility] [address] [id number] [place] [address]- 3897 Jun, [facility] [place] [facility] [address] [id number] [place] [address]- 6563 Jun, [facility] [place] [facility] [address] [id number] [place] [address]- 5770 Jun, [facility] [place] [facility] [address] [id number] [place] [address]- 1501 Jun, [facility] [place] [facility] [address] [id number] [place] [address]- 2283 May, [facility] [place] [facility] [address] [id number] [place] [address]- 6127 May, [facility] [address] [id number] [place] [address]- 8427 May, [facility] [address] [id number] [place] [address]- 7421 May, [facility] [address] [id number] [place] [address]- 0673 March, [facility] [address] [id number] [place] [address]- 8773 March, [facility] [address] [id number] [place] [address]- 3539 March, [facility] [address] [id number] [place] [address]- 9865 Feb, [facility] [address] [id number] [place] [address]- 7182 Feb, [facility] [address] [id number] [place] [address]- 5945 Feb, [facility] [address] [id number] [place] [address]- 2926 Feb, [facility] [address] [id number] [place] [address]- 9575 Jan, [facility] [address] [id number] [place] [address]- 3804 Jan, [facility] [address] [id number] [place] [address]- 8065 Jan, [facility] [place] [facility] [address] [id number] [place] [address]- 2771 Dec, [facility] [place] [facility] [address] [id number] [place] [address]- 4845 14 Dec, 2012 [facility] [address] [id number] [place] [address]- 6210 12 Dec, 2012 [facility] [address] [id number] [place] [address] 2546 Dec, [facility] [address] [id number] [place] [address]- 0146 Dec, [facility] [address] [id number] [place] [address]- 5116 Nov, [facility] [address] [id number] [place] [address]- 0226 Nov, [facility] [address] [id number] [place] [address]- 1776 Nov, [facility] [address] [id number] [place] [address]- 4346 Nov, [facility] [address] [id number] [place] [address]- 5456 Oct, [facility] [address] [id number] [place] [address] 2543 Oct, [facility] [address] [id number] [place] [address]- 8936 Oct, [facility] [address] [id number] [place] [address]- 2377 Oct, [facility] [address] [id number] [place] [address] 2546 Oct, [facility] [address] [id number] [place] [address] 2546 Oct, [facility] [address] [id number] [place] [address] 2546 Oct, [facility] [place] [facility] [address] [id number] [place] [address]- 2546 Oct, [facility] [address] [id number] [place] [address]- 4311 Oct, [facility] [place] [facility] [address] [id number] [place] [address]- 0096 Oct, [facility] [place] [facility] [address] [id number] [place] [address]- 2307 Oct, [facility] [place] [facility] [address] [id number] [place] [address]- 9269 Oct, [facility] [place] [facility] [address] [id number] [place] [address]- 5236 Oct, [facility] [place] [facility] [address] [id number] [place] [address]- 1931 Sep, [facility] [place] [facility] [address] [id number] [place] [address]- 3575 Sep, [facility] [place] [facility] [address] [id number] [place] [address]- 0565 Sep, [facility] [place] [facility] [address] [id number] [place] [address]- 7459 Sep, [facility] [place] [facility] [address] [id number] [place] [address]- 0964 Sep, [facility] [place] [facility] [address] [id number] [place] [address]- 6430 Sep, [facility] [place] [facility] [address] [id number] [place] [address]- 4815 Sep, [facility] [place] [facility] [address] [id number] [place] [address]- 0086 Sep, [facility] [place] [facility] [address] [id number] [place] [address]- 1733 Sep, [facility] [place] [facility] [address] [id number] [place] [address]- 5397 Sep, [facility] [place] [facility] [address] [id number] [place] [address]- 6171 Sep, [facility] [place] [facility] [address] [id number] [place] [address]- 8420 Sep, [facility] [place] [facility] [address] [id number] [place] [address]- 0222 Aug, [facility] [place] [facility] [address] [id number] [place] [address]- 1451 Aug, [facility] [place] [facility] [address] [facility] [id number] [place] [address]- 3136 Aug, [facility] [place] [facility] [address] [id number] [place] [address]- 9175 Aug, [facility] [place] [facility] [address] [id number] [place] [address]- 7961 Aug, [facility] [place] [facility] [address] [id number] [place] [address]- 5586 Aug, [facility] [place] [facility] [address] [id number] [place] [address]- 7804 Aug, [facility] [place] [facility] [address] [id number] [address]- 0868 Aug, [facility] [place] [facility] [address] [id number] [place] [address]- 4611 Aug, [facility] [place] [facility] [address] [id number] [address] Aug, [facility] [place] [facility] [address] [id number], [place] [address] Aug, [facility] [place] [facility] [address] [id number], [place] [address] Aug, [facility] [place] [facility] [address] [id number] [place] [address] Jul, [facility] [place] [facility] [address] [id number] [place] [address] 27 Jul, 2012 [facility] [place] [facility] [address] [id number] [place] [address] Jul, [facility] [place] [facility] [address] [id number] [place] [address] 10 Jul, 2012 [facility] [address] [id number] [place] [address] 05 Jul, 2012 [facility] [place] [facility] [address] [id number] [place] [address] Jul, [facility] [address] [id number] [place] [address] Jun, [facility] [place] [facility] [address] [id number] [place] [address] Jun, [facility] [address] [id number] [place] [address] Jun, [facility] [address] [id number] [place] [address] May, [facility] [address] [id number] [place] [address] May, [facility] [address] [id number] [place] [address] May, [facility] [place] [facility] [address] [id number] [place] [address] May, [facility] [address] [id number] [place] [address] May, [facility] [place] [facility] [address] [id number] [place] [address] May, [facility] [place] [facility] [address] [id number] [place] [address] Apr, [facility] [place] [facility] [address] [id number] [place] [address] Feb, [facility] [place] [facility] [address] [id number] [place] [address] 18 Feb, 2012 [facility] [place] [facility] [address] [id number] [place] [address] Feb, [facility] [place] [facility] [address] [id number] [place] [address] 10 Feb, 2012 [facility] [place] [facility] [address] [id number] [place] [address] 16 Jan, 2012 [facility] [place] [facility] [address] [id number] [place] [address]- [address] 12 Jan, 2012 [facility] [place] [facility] [address] [id number] [place] [address]46 29 Dec, 2011 [facility] [place] [facility] [address] [id number] [place] [address] 28 Dec, 2011 [facility] [place] [facility] [address] [id number] [place] [address] 21 Dec, 2011 [facility] [place] [facility] [address] [id number] [place] [address]- [address] 14 Dec, 2011 [facility] [place] [facility] [address] [id number] [place] [address] 14 Dec, 2011 [facility] [place] [facility] [address] [id number] [place] [address] 4060 13 Dec, 2011 [facility] [place] [facility] [address] [id number] [place] [address]- [address] 09 Dec, 2011 [facility] [place] [facility] [address] [id number] [place] [address] 07 Dec, 2011 [facility] [place] [facility] [address] [id number] [place] [address]262 02 Dec, 2011 [facility] [place] [facility] [address] [id number] [place] [address] 135[address] Nov, [facility] [place] [facility] [address] [id number] [place] [address] Nov, [facility] [place] [facility] [address] [id number] [place] [address] Nov, [facility] [place] [facility] [address] [id number] [place] [address] Nov, [facility] [address] [id number] [place] [address] Nov, [facility] [facility] [address] [id number] [place] [address] 16 Nov, 2011 [facility] [address] [id number] [place] [address] Nov, [facility] [address] [id number] [place] [address] 254 Nov, [facility] [address] [id number] [place] [address] Nov, [facility] [address] [id number] [place] [address] Oct, [facility] [address] [id number] [place] [address] Oct, [facility] [address] [id number] [place] [address] Oct, [facility] [address] [id number] [place] [address] Oct, [facility] [address] [facility] [id number] [place] [address] Oct, [facility] [address] [id number] [place] [address] Oct, [facility] [address] [id number] [place] [address] Sep, [facility] [address] [id number] [place] [address] Aug, [facility] [address] [id number] [place] [address] Jul, [facility] [address] [id number] [place] [address] Nov, [facility] [place] [facility] [address] [id number] [place] [address] 10 Nov, 2010 [facility] [place] [facility] [address] [id number] [place] [address] 23 Oct, 2010 [facility] [place] [facility] [address] [id number] [place] [address] 10 Sep, 2010 [facility] [place] [facility] [address] [id number] [place] [address] Sep, [facility] [place] [facility] [address] [id number] [place] [address] 18 Aug, 2010 [facility] [place] [facility] [address] [id number] [place] [address] 14 Aug, 2010 [facility] [place] [facility] [address] [facility] [id number] [place] [address] 14 Aug, 2010 [facility] [place] [facility] [address] [id number] [address] 13 Feb, 2010 [facility] [place] [facility] [address] [id number] [place] [address] 10 Dec, 2009 [facility] [place] [facility] [address] [facility] [id number] [address] 30 Oct, 2009 [facility] [place] [facility] [address] [id number], [place] [address] Oct, [facility] [place] [facility] [address] [id number], [place] [address] 08 Oct, 2009 [facility] [place] [facility] [address] [id number], [place] [address] Sep, [facility] [place] [facility] [address] [id number][place] [address] Sep, [facility] [place] [facility] [address] [facility] [id number], [place] [address] Sep, [facility] [place] [facility] [address] [id number][place] [address] Aug, [facility] [address] [facility] [id number] [place] [address] Aug, IMMUNIZATIONS No Known Immunizations SOCIAL HISTORY Never Assessed REASON FOR VISIT BH INTAKE Gui PLAN OF CARE Activity Details Follow Up 2 Weeks Reason: VITAL SIGNS Height 63 in 2017-07-12 Weight 209.9 lbs 2017-07-12 Heart Rate 66 bpm 2017-07-12 Respiratory Rate 19 2017-07-12 BMI 37.18 kg/m2 2017-07-12 Blood pressure systolic 122 mmHg 2017-07-12 Blood pressure diastolic 88 mmHg 2017-07-12 MEDICATIONS Medication Instructions Dosage Frequency Start Date End Date Duration Status Seroquel 50 MG Orally Twice a day (morning and afternoon) 1 tablet Jun 30 days Active Gabapentin 600 MG TAKE ONE TABLET BY MOUTH THREE TIMES DAILY Active Klonopin 1 MG Orally Twice a day 1 tablet 12h May, Active Delaplaine Carbonate 300 MG Orally 2 times a day 1 capsule 12h 30 days Active Quetiapine Fumarate 300 MG Orally Once a day 1 tablet at bedtime 24h 30 days Active Minipress 1 MG Orally Once a day TAKE THREE CAPSULES BY MOUTH ONCE DAILY AT BEDTIME 24h 30 days Active RESULTS No Results PROCEDURES [...] mental health issues x2 Ward Unit in [place] 2016 & 02/2017 Hospitalization History Surgery(s)/Childbirth(s)
--- OUTSIDE RECORDS SUMMARY | 2018-08-03 08:09 | XMS REPORT ---
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 [employer] Name Role Phone RACHAEL CHEATHAM Unavailable PROBLEMS Type Condition ICD9-CM Code [id number] Code Onset Dates Condition Status SNOMED Code Problem Anxiety F41.9 Active 79393251 Problem PTSD (post-traumatic stress disorder) F43.10 Active 58664273 Problem Night terror F51.4 Active 45944010 Problem Borderline personality disorder F60.3 Active 07385986 Problem Sciatica, unspecified side M54.30 Active 43298799 Problem Schizo affective schizophrenia F25.0 Active 924942028 Problem Mood disorder F39 Active 99647614 Problem Severe episode of recurrent major depressive disorder, with psychotic features F33.3 Active 06439059 Problem Bipolar 1 disorder F31.9 Active 760717772 Problem Adjustment disorder with mixed anxiety and depressed mood F43.23 Active 95551383 ALLERGIES No Information ENCOUNTERS Encounter Location Date Diagnosis [place] [id number] [place] [address] 92544- 3633 Feb, [place] [address] 32398- 2654 Feb, Mood disorder F39 [place] [address] 44914- 8777 Feb, Annual physical exam Z00.00 ; BMI 40.0-44.9, adult Z68.41 and Nipple discharge N64.52 [place] [address] 36755- 2027 Jan, Schizo affective schizophrenia F25.0 ; Adjustment disorder with mixed anxiety and depressed mood F43.23 ; Night terror F51.4 ; Anxiety F41.9 and Borderline personality disorder F60.3 [place] [id number] [place] [address] 91679- 0218 Jan, Mood disorder F39 ; PTSD (post-traumatic stress disorder) F43.10 ; Borderline personality disorder F60.3 and High risk medication use Z79.899 [facility] [id number] [place] [address] 45819- 1693 Dec, Anxiety F41.9 and Borderline personality disorder F60.3 [facility] [id number] [place] [address] 12208- 8243 Dec, [facility] [id number] [place] [address] 61842- 3962 Dec, Anxiety F41.9 and Borderline personality disorder F60.3 [place] [id number] [place] [address] 55697- 1000 Dec, [facility] [id number] [place] [address] 36176- 3691 Dec, [facility] [id number] [place] [address] 63026- 7516 Nov, Acute non-recurrent maxillary sinusitis J01.00 ; Mood disorder F39 and Sciatica, unspecified side M54.30 [place] [id number] [place] [address] 53428- 7730 Nov, Mood disorder F39 ; PTSD (post-traumatic stress disorder) F43.10 and Borderline personality disorder F60.3 [facility] [id number] [place] [address] 68218- 2734 Nov, Anxiety F41.9 and Borderline personality disorder F60.3 [facility] [id number] [place] [address] 17667- 1003 Nov, [facility] [id number] [place] [address] 59784- 5231 Nov, Anxiety F41.9 and Sciatica, unspecified side M54.30 [facility] [id number] [place] [address] 20697- 2192 Oct, Anxiety F41.9 [facility] [id number] [place] [address] 21965- 8866 Oct, Mood disorder F39 ; PTSD (post-traumatic stress disorder) F43.10 ; Borderline personality disorder F60.3 and High risk medication use Z79.899 [facility] [id number] [place] [address] [id number] Oct, 2017 Dental caries K02.9 and Dental examination Z01.20 [facility] [id number] [place] [address] 43042- 9371 Sep, Dysuria R30.0 and Abdominal pain, right lower quadrant R10.31 [place] [id number] [place] [address] 25907- 5824 Aug, Mood disorder F39 ; PTSD (post-traumatic stress disorder) F43.10 and Borderline personality disorder F60.3 [facility] [id number] [place] [address] 68954- 3892 Aug, [facility] [id number] [place] [address] 63787- 8691 Aug, [facility] [address] [place] [address] 92626- 1436 Aug, Severe episode of recurrent major depressive disorder, with psychotic features F33.3 ; PTSD (post-traumatic stress disorder) F43.10 ; Adjustment disorder with mixed anxiety and depressed mood F43.23 and Borderline personality disorder F60.3 [facility] [address] [place] [address] 46638- 6112 Aug, Mood disorder F39 ; PTSD (post-traumatic stress disorder) F43.10 and Borderline personality disorder F60.3 [facility] [address] [place] [address] 91110- 8492 Aug, [facility] [id number] [place] [address] 53056- 4570 Aug, Bipolar 1 disorder F31.9 and Schizo affective schizophrenia F25.0 [facility] [address] [place] [address] 12864- 5371 Aug, Mood disorder F39 [facility] [id number] [address]- 2546 Aug, Bipolar 1 disorder F31.9 and Schizo affective schizophrenia F25.0 [facility] [id number] [place] [address] 81713- 0112 Aug, Bipolar 1 disorder F31.9 and Schizo affective schizophrenia F25.0 [facility] [id number] [place] [address] 56384- 0274 Aug, [facility] [id number] [place] [address] 87446- 0842 Aug, PTSD (post-traumatic stress disorder) F43.10 and Borderline personality disorder F60.3 [facility] [address] [place] [address] 09467- 3200 Aug, [facility] [id number] [place] [address] 09291- 9044 Aug, Mood disorder F39 ; PTSD (post-traumatic stress disorder) F43.10 ; Borderline personality disorder F60.3 and Adjustment disorder with mixed anxiety and depressed mood F43.23 [facility] [id number] [place] [address] 59219- 6278 Jul, [facility] [id number] [place] [address] 99224- 2547 Jul, Mood disorder F39 ; PTSD (post-traumatic stress disorder) F43.10 and Borderline personality disorder F60.3 [facility] [id number] [address]- 9786 Jul, [facility] [id number] [place] [address] 87823- 2161 30 Aug, 2017 Anxiety F41.9 ; ADHD (attention deficit hyperactivity disorder) F90.9 ; Night terror F51.4 ; Bulimia F50.2 ; Severe episode of recurrent major depressive disorder, with psychotic features F33.3 and PTSD ( post-traumatic stress disorder) F43.10 [facility] [address] [address]- 0498 Jun, Borderline personality disorder F60.3 ; Mood disorder F39 and PTSD (post-traumatic stress disorder) F43.10 [facility] [address] [place] [address] 46989- 2636 Jun, Anxiety F41.9 [facility] [id number] [place] [address] 76082- 9636 Jun, Anxiety F41.9 ; ADHD (attention deficit hyperactivity disorder) F90.9 ; Night terror F51.4 ; Bulimia F50.2 ; Severe episode of recurrent major depressive disorder, with psychotic features F33.3 and PTSD ( post-traumatic stress disorder) F43.10 [facility] [address] [address]- 4477 Jun, ADHD (attention deficit hyperactivity disorder) F90.9 ; Night terror F51.4 ; Bulimia F50.2 ; Anxiety F41.9 ; Severe episode of recurrent major depressive disorder, with psychotic features F33.3 and PTSD ( post-traumatic stress disorder) F43.10 [facility] [address] [address]- 1827 May, Anxiety F41.9 [facility] [address] [place] [address]- 7167 May, PTSD (post-traumatic stress disorder) F43.10 and Borderline personality disorder F60.3 [facility] [address] [place] [address]- 0244 Apr, [facility] [id number] [id number] March, Dental examination Z01.20 and Dental caries K02.9 [facility] [id number] [place] [address] 03817- 9267 March, Dental examination Z01.20 [facility] [id number] [place] [address] 56709- 7977 March, Tooth abscess K04.7 and Tooth pain K08.89 [facility] [address] 63347- 4052 March, Borderline personality disorder F60.3 [facility] [address] 42189- 8384 March, ADHD (attention deficit hyperactivity disorder) F90.9 ; Night terror F51.4 ; Bulimia F50.2 and Anxiety F41.9 [place] [id number] [place] [address] 35066- 1077 Feb, Borderline personality disorder F60.3 ; ADHD (attention deficit hyperactivity disorder) F90.9 ; Anxiety F41.9 ; Bulimia F50.2 ; Obsessive-compulsive disorder, unspecified type F42.9 and Night terror F51.4 [facility] [id number] [place] [address] 39248- 3466 Feb, [facility] [id number] [place] [address] 59784- 4786 Feb, [facility] [id number] [place] [address] 66293- 4491 Jul, [facility] [id number] [place] [address] 84913- 1853 Jul, [facility] [id number] [place] [address] 47443- 1852 Jul, [facility] [id number] [place] [address] 69192- 5517 Jul, [facility] [id number] [place] [address] 95893- 3158 Jun, [facility] [place] [facility] [address] [id number] [place] [address]- 0397 Jun, [facility] [place] [facility] [address] [id number] [place] [address]- 5324 Jun, [facility] [place] [facility] [address] [id number] [place] [address]- 4104 Jun, [facility] [place] [facility] [address] [id number] [place] [address]- 8253 Apr, [facility] [place] [facility] [address] [id number] [place] [address]- 7564 Apr, [facility] [place] [facility] [address] [id number] [place] [address]- 6084 March, [facility] [place] [facility] [address] [id number] [place] [address]- 6429 March, [facility] [place] [facility] [address] [id number] [place] [address]- 6430 Jan, [facility] [place] [facility] [address] [id number] [place] [address]- 2055 Jan, [facility] [place] [facility] [address] [id number] [place] [address]- 5072 Jan, [facility] [place] [facility] [address] [id number] [place] [address]- 4479 Jan, [facility] [place] [facility] [address] [id number] [place] [address]- 2508 Jan, [facility] [place] [facility] [address] [id number] [place] [address]- 7087 Dec, [facility] [place] [facility] [address] [id number] [place] [address]- 2723 Dec, [facility] [place] [facility] [address] [id number] [place] [address]- 0285 Oct, [facility] [place] [facility] [address] [id number], [place] [address]- 1275 Oct, [facility] [place] [facility] [address] [id number] [place] [address]- 4640 Oct, [facility] [place] [facility] [address] [facility] [id number], [place] [address]- 5203 Oct, [facility] [place] [facility] [address] [facility] [id number] [place] [address]- 7461 Sep, [facility] [place] [facility] [address] [id number] [place] [address]- 8946 Sep, [facility] [place] [facility] [address] [facility] [id number] [place] [address], [place] [address]- 6016 Sep, [facility] [place] [facility] [address] [facility] [id number] [place] [address]- 0068 Aug, [facility] [place] [facility] [id number] [address]- 1078 Aug, [facility] [place] [facility] [address] [facility] [id number], [place] [address]- 0646 Aug, [facility] [place] [facility] [id number] [address]- 2176 Aug, [facility] [place] [facility] [address] [facility] [id number], [place] [address]- 0009 Aug, [facility] [place] [facility] [address] [facility] [id number], [place] [address]- 5973 Aug, [facility] [place] [facility] [address] [facility] [id number], [place] [address]- 7071 Aug, [facility] [place] [facility] [address] [id number], [place] [address]- 1053 Jul, [facility] [place] [facility] [address] [facility] [id number], [place] [address]- 6861 Jun, [facility] [place] [facility] [address] [facility] [id number], [place] [address]- 9007 Jun, [facility] [place] [facility] [address] [id number] [place] [address]- 6577 Jun, [facility] [address] [id number] [place] [address]- 2268 Jun, [facility] [place] [facility] [address] [id number] [place] [address]- 0436 Jun, [facility] [place] [facility] [address] [id number] [place] [address]- 2424 Jun, [facility] [place] [facility] [address] [id number] [place] [address]- 2601 May, [facility] [place] [facility] [address] [id number] [place] [address]- 7807 May, [facility] [place] [facility] [address] [id number] [place] [address]- 3121 May, [facility] [place] [facility] [address] [id number] [place] [address]- 0678 May, [facility] [place] [facility] [address] [id number] [place] [address]- 5972 March, [facility] [place] [facility] [address] [id number] [place] [address]- 0652 March, [facility] [place] [facility] [address] [id number] [place] [address]- 2197 March, [facility] [place] [facility] [address] [id number] [place] [address]- 4561 Feb, [facility] [place] [facility] [address] [id number] [place] [address]- 5504 Feb, [facility] [place] [facility] [address] [id number] [place] [address]- 9694 Feb, [facility] [place] [facility] [address] [id number] [place] [address]- 7266 Feb, [facility] [place] [facility] [address] [id number] [place] [address]- 1461 Jan, [facility] [address] [id number] [place] [address]- 5256 Jan, [facility] [place] [facility] [address] [id number] [place] [address]- 5576 Jan, [facility] [address] [id number] [place] [address]- 3396 Dec, [facility] [place] [facility] [address] [id number] [place] [address]- 0816 Dec, [facility] [address] [id number] [place] [address]- 6624 Dec, [facility] [address] [id number] [place] [address]- 4615 Dec, [facility] [address] [id number] [place] [address]- 7320 Dec, [facility] [address] [id number] [place] [address]- 3702 Nov, [facility] [address] [id number] [place] [address]- 3723 Nov, [facility] [address] [id number] [place] [address]- 8060 Nov, [facility] [address] [id number] [place] [address]- 3551 Nov, [facility] [place] [facility] [address] [id number] [place] [address]- 3119 Oct, [facility] [place] [facility] [address] [id number] [place] [address]- 7710 Oct, [facility] [place] [facility] [address] [id number] [place] [address]- 1626 Oct, [facility] [place] [facility] [address] [id number] [place] [address]- 7391 Oct, [facility] [place] [facility] [address] [id number] [place] [address]- 4247 Oct, [facility] [place] [facility] [address] [id number] [place] [address]- 5446 Oct, [facility] [place] [facility] [address] [id number] [place] [address]- 3196 Oct, [facility] [address] [id number] [place] [address]- 7346 Oct, [facility] [place] [facility] [address] [id number] [place] [address]- 5156 Oct, [facility] [place] [facility] [address] [id number] [place] [address]- 5266 Oct, [facility] [place] [facility] [address] [id number] [place] [address]- 5194 Oct, [facility] [place] [facility] [address] [id number] [place] [address]- 7405 Oct, [facility] [address] [id number] [place] [address]- 3978 Oct, [facility] [place] [facility] [address] [id number] [place] [address]- 9885 Sep, [facility] [place] [facility] [address] [id number] [place] [address]- 1565 Sep, [facility] [place] [facility] [address] [id number] [place] [address]- 7386 Sep, [facility] [place] [facility] [address] [id number] [place] [address]- 2546 Sep, [facility] [place] [facility] [address] [id number] [place] [address]- 9096 Sep, [facility] [place] [facility] [address] [id number] [place] [address]- 4806 Sep, [facility] [place] [facility] [address] [id number] [place] [address]- 1976 Sep, [facility] [place] [facility] [address] [id number] [place] [address]- 6164 Sep, [facility] [place] [facility] [address] [id number] [place] [address]- 6749 Sep, [facility] [place] [facility] [address] [id number] [place] [address]- 7683 Sep, [facility] [place] [facility] [address] [id number] [place] [address]- 0539 Sep, [facility] [place] [facility] [address] [id number] [place] 2502 Sep, [facility] [place] [facility] [address] [id number] [place] [address]- 8943 Aug, [facility] [place] [facility] [address] [id number] [place] [address]- 0732 Aug, [facility] [place] [facility] [address] [id number] [place] [address]- 5721 Aug, [facility] [place] [facility] [address] [id number] [place] [address]- 5673 Aug, [facility] [place] [facility] [address] [id number], [place] [address]- 0314 Aug, [facility] [place] [facility] [address] [id number], [place] [address]- 5800 Aug, [facility] [place] [facility] [address] [id number], [place] [address]- 0971 Aug, [facility] [place] [facility] [address] [id number] [place] [address]- 1377 Aug, [facility] [place] [facility] [address] [id number], [place] [address]- 7422 Aug, [facility] [place] [facility] [address] [id number] 8281 Aug, [facility] [place] [facility] [address] [id number] [place] [address]- 0756 Aug, [facility] [place] [facility] [address] [id number] [place] [address]- 2410 Aug, [facility] [place] [facility] [address] [id number] [place] [address]- 4926 28 Jul, 2011 [facility] [place] [facility] [address] [id number] [place] [address]- 1226 27 Jul, 2011 [facility] [place] [facility] [address] [id number] [place] [address]- 2705 21 Jul, 2011 [facility] [place] [facility] [address] [id number] [place] [address]- 4469 10 Jul, 2012 [facility] [place] [facility] [address] [id number] [place] [address]- 8846 05 Jul, 2011 [facility] [place] [facility] [address] [id number] [place] [address]- 3956 04 Jul, 2012 [facility] [place] [facility] [address] [id number] [place] [address]- 4748 Jun, [facility] [place] [facility] [address] [id number] [place] [address]- 6040 Jun, [facility] [place] [facility] [address] [id number] [place] [address]- 8936 Jun, [facility] [place] [facility] [address] [id number] [place] [address]- 2924 May, [facility] [place] [facility] [address] [id number] [place] [address]- 0210 May, [facility] [place] [facility] [address] [id number] [place] [address]- 5312 14 May, 2012 [facility] [place] [facility] [address] [id number] [place] [address]- 3518 May, [facility] [place] [facility] [address] [id number] [place] [address]- 1367 May, [facility] [place] [facility] [address] [id number] [place] [address]- 9205 05 May, 2012 [facility] [place] [facility] [address] [id number] [place] [address] 30 Apr, 2012 [facility] [place] [facility] [address] [id number] [place] [address] 23 Feb, 2012 [facility] [place] [facility] [address] [id number] [place] [address] 18 Feb, 2012 [facility] [place] [facility] [address] [id number] [place] [address] 11 Feb, 2012 [facility] [place] [facility] [address] [id number] [place] [address] 10 Feb, 2012 [facility] [place] [facility] [address] [facility] [id number] [place] [address] 16 Jan, 2012 [facility] [place] [facility] [address] [id number] [place] [address] 12 Jan, 2012 [facility] [place] [facility] [address] [id number] [place] [address] 29 Dec, 2011 [facility] [place] [facility] [address] [id number] [place] [address] 28 Dec, 2011 [facility] [place] [facility] [address] [id number] [place] [address] 21 Dec, 2011 [facility] [place] [facility] [address] [id number] [place] [address] 14 Dec, 2011 [facility] [place] [facility] [address] [id number] [place] [address] 14 Dec, 2011 [facility] [place] [facility] [address] [id number] [place] [address] 13 Dec, 2011 [facility] [place] [facility] [address] [facility] [id number] [place] [address]27 09 Dec, 2011 [facility] [place] [facility] [address] [id number] [address] 07 Dec, 2011 [facility] [address] [id number] [place] [address] Dec, [facility] [address] [id number] [place] [address] Nov, [facility] [address] [id number] [place] [address] Nov, [facility] [address] [id number] [place] [address] Nov, [facility] [address] [id number] [place] [address] Nov, [facility] [address] [id number] [place] [address] Nov, [facility] [address] [id number] [place] [address] Nov, [facility] [address] [id number] [place] [address] Nov, [facility] [address] [id number] [place] [address] Nov, [facility] [address] [facility] [id number] [place] [address] Nov, [facility] [address] [id number] [place] [address] Oct, [facility] [address] [id number] [place] [address] Oct, [facility] [address] [id number] [place] [address] Oct, [facility] [place] [facility] [address] [facility] [id number] [place] [address] Oct, [facility] [address] [facility] [id number] [place] [address] 8416 Oct, [facility] [address] [id number] [place] [address] Oct, [facility] [place] [facility] [address] [id number] [place] [address] Sep, [facility] [place] [facility] [address] [id number] [place] [address] 19 Aug, 2011 [facility] [place] [facility] [address] [id number] [place] [address] Jul, [facility] [place] [facility] [address] [id number] [place] [address] 2281 17 Nov, 2010 [facility] [place] [facility] [address] [id number] [place] [address] Nov, [facility] [place] [facility] [address] [id number] [place] [address] Oct, [facility] [place] [facility] [address] [id number] [place] [address] Sep, [facility] [place] [facility] [address] [id number] [place] [address] Sep, [facility] [place] [facility] [address] [id number] [place] [address] 18 Aug, 2010 [facility] [place] [facility] [address] [id number] [place] [address] 14 Aug, 2010 [facility] [place] [facility] [address] [id number] [place] [address] 14 Aug, 2010 [facility] [place] [facility] [address] [id number] [place] [address] 13 Feb, 2010 [facility] [place] [facility] [address] [id number] [place] [address] 10 Dec, 2009 [facility] [place] [facility] [address] [id number] [place] [address] 30 Oct, 2009 [facility] [place] [facility] [address] [id number], [place] [address] Oct, [facility] [address] [facility] [id number], [place] [address] Oct, [facility] [address] [id number], [place] [address] Sep, [facility] [address] [id number], [place] [address] Sep, [facility] [address] [id number], [place] [address] Sep, [facility] [address] [id number], [place] [address] Aug, [facility] [address] [id number] [address] Aug, IMMUNIZATIONS No Known Immunizations SOCIAL HISTORY Never Assessed REASON FOR VISIT Anxiety medications PLAN OF CARE VITAL SIGNS MEDICATIONS Medication [...] mental health issues x2 Ward Unit in [place] 2016 & 02/2017 Hospitalization History Surgery(s)/Childbirth(s)
--- OUTSIDE RECORDS SUMMARY | 2018-08-03 08:10 | XMS REPORT ---
Author Author RUBEN Braga Organization [facility] Address [address] [place] [address] Care Team Providers Care Test Hole Driller Name Role Phone Maria Luz RUBEN Unavailable PROBLEMS Type Condition ICD9-CM Code TVO40-OH Code Onset Dates Condition Status SNOMED Code Problem Anxiety F41.9 Active 83391943 Problem Severe episode of recurrent major depressive disorder, with psychotic features F33.3 Active 90625709 Problem PTSD (post-traumatic stress disorder) F43.10 Active 02443907 Problem Borderline personality disorder F60.3 Active 72012492 Problem Night terror F51.4 Active 31799872 Problem Cannabis use disorder, mild, abuse F12.10 Active 82298170 Problem Sciatica, unspecified side M54.30 Active 69508357 Problem Adjustment disorder with mixed anxiety and depressed mood F43.23 Active 70483127 Problem Mood disorder F39 Active 28644244 Problem Schizo affective schizophrenia F25.0 Active 292040352 Problem Bipolar 1 disorder F31.9 Active [id number] ALLERGIES No Information ENCOUNTERS Encounter Location Date Diagnosis [facility] [address] [address] March, [facility] [address] [address] March, [facility] [id number] [address] Feb, [facility] [id number] [place] [address] 09069- 1062 Feb, [facility] [id number], [place] [address] Feb, Breast cancer screening Z12.31 [facility] [id number] [place] [address] 67582- 6654 Feb, Mood disorder F39 and PTSD (post-traumatic stress disorder) F43.10 [place] [id number] [place] [address] 72707- 0648 Feb, PTSD (post-traumatic stress disorder) F43.10 ; Mood disorder F39 ; Borderline personality disorder F60.3 and Cannabis use disorder, mild, abuse F12.10 [place] [place] [id number] [place] [address] 46199- 2441 Feb, Schizo affective schizophrenia F25.0 ; Adjustment disorder with mixed anxiety and depressed mood F43.23 ; Night terror F51.4 ; Anxiety F41.9 and Borderline personality disorder F60.3 [place] [id number] [place] [address] 22214- 8208 Feb, [place] [id number] [place] [address] 71770- 5485 Feb, Mood disorder F39 [place] [id number] [place] [address] 88860- 7818 Feb, Annual physical exam Z00.00 ; BMI 40.0-44.9, adult Z68.41 and Nipple discharge N64.52 [place] [id number] [place] [address] 33227- 9730 Jan, Schizo affective schizophrenia F25.0 ; Adjustment disorder with mixed anxiety and depressed mood F43.23 ; Night terror F51.4 ; Anxiety F41.9 and Borderline personality disorder F60.3 [place] [id number] [place] [address] 77500- 6263 Jan, Mood disorder F39 ; PTSD (post-traumatic stress disorder) F43.10 ; Borderline personality disorder F60.3 and High risk medication use Z79.899 [place] [address] [place] [address] 92039- 1236 Dec, Anxiety F41.9 and Borderline personality disorder F60.3 [place] [place] [id number] [place] [address] 44071- 5263 Dec, [facility] [id number] [place] [address] 27086- 7886 Dec, Anxiety F41.9 and Borderline personality disorder F60.3 [facility] [id number] [place] [address] 64449- 4056 Dec, [facility] [id number] [place] [address] 58529- 5461 Dec, [facility] [id number] [place] [address] 82889- 7768 Nov, Acute non-recurrent maxillary sinusitis J01.00 ; Mood disorder F39 and Sciatica, unspecified side M54.30 [facility] [id number] [place] [address] 99172- 1203 Nov, Mood disorder F39 ; PTSD (post-traumatic stress disorder) F43.10 and Borderline personality disorder F60.3 [facility] [id number] [place] [address] 14791- 8831 Nov, Anxiety F41.9 and Borderline personality disorder F60.3 [facility] [id number] [place] [address] 93059- 3434 Nov, [facility] [id number] [place] [address] 87222- 9441 Nov, Anxiety F41.9 and Sciatica, unspecified side M54.30 [facility] [id number] [place] [address] 27905- 0376 Oct, Anxiety F41.9 [facility] [id number] [place] [address] 24723- 4066 Oct, Mood disorder F39 ; PTSD (post-traumatic stress disorder) F43.10 ; Borderline personality disorder F60.3 and High risk medication use Z79.899 [facility] [address] [place] [address] [id number] Oct, Dental caries K02.9 and Dental examination Z01.20 [facility] [address] [place] [address] 38220- 2679 Sep, Dysuria R30.0 and Abdominal pain, right lower quadrant R10.31 [facility] [id number] [place] [address] 31155- 7003 Aug, Mood disorder F39 ; PTSD (post-traumatic stress disorder) F43.10 and Borderline personality disorder F60.3 [facility] [id number] [place] [address] 01739- 7045 Aug, [facility] [id number] [place] [address] 09978- 9550 Aug, [place] [id number] [place] [address] 31274- 4164 Aug, Severe episode of recurrent major depressive disorder, with psychotic features F33.3 ; PTSD (post-traumatic stress disorder) F43.10 ; Adjustment disorder with mixed anxiety and depressed mood F43.23 and Borderline personality disorder F60.3 [place] [id number] [place] [address] 08768- 9116 Aug, Mood disorder F39 ; PTSD (post-traumatic stress disorder) F43.10 and Borderline personality disorder F60.3 [place] [place] [id number] [place] [address] 96028- 9516 Aug, [facility] [id number] [place] [address] 05579- 2555 Aug, Bipolar 1 disorder F31.9 and Schizo affective schizophrenia F25.0 [facility] [id number] [place] [address] 20452- 3517 Aug, Mood disorder F39 [facility] [id number] [place] [address] 75909- 0334 Aug, Bipolar 1 disorder F31.9 and Schizo affective schizophrenia F25.0 [place] [address] [address]- 3975 Aug, Bipolar 1 disorder F31.9 and Schizo affective schizophrenia F25.0 [facility] [id number] [place] [address] 36971- 0796 Aug, [facility] [id number] [place] [address] 87027- 4696 Aug, PTSD (post-traumatic stress disorder) F43.10 and Borderline personality disorder F60.3 [place] [id number] [place] [address] 32792- 4316 Aug, [place] [id number] [place] [address] 07815- 9657 Aug, Mood disorder F39 ; PTSD (post-traumatic stress disorder) F43.10 ; Borderline personality disorder F60.3 and Adjustment disorder with mixed anxiety and depressed mood F43.23 [place] [id number] [place] [address] 28371- 3656 Jul, [place] [id number] [place] [address] 87748- 6012 Jul, Mood disorder F39 ; PTSD (post-traumatic stress disorder) F43.10 and Borderline personality disorder F60.3 [place] [address] [place] [address] 14593- 6013 Jul, [place] [id number] [place] [address] 60889- 9923 Jun, Anxiety F41.9 ; ADHD (attention deficit hyperactivity disorder) F90.9 ; Night terror F51.4 ; Bulimia F50.2 ; Severe episode of recurrent major depressive disorder, with psychotic features F33.3 and PTSD ( post-traumatic stress disorder) F43.10 [place] [address] [address]- 4042 Jun, Borderline personality disorder F60.3 ; Mood disorder F39 and PTSD (post-traumatic stress disorder) F43.10 [facility] [address] [address]- 0930 Jun, Anxiety F41.9 [facility] [id number] [place] [address] 38740- 1877 Jun, Anxiety F41.9 ; ADHD (attention deficit hyperactivity disorder) F90.9 ; Night terror F51.4 ; Bulimia F50.2 ; Severe episode of recurrent major depressive disorder, with psychotic features F33.3 and PTSD ( post-traumatic stress disorder) F43.10 [facility] [address] [place] [address] 17799- 3756 Jun, ADHD (attention deficit hyperactivity disorder) F90.9 ; Night terror F51.4 ; Bulimia F50.2 ; Anxiety F41.9 ; Severe episode of recurrent major depressive disorder, with psychotic features F33.3 and PTSD ( post-traumatic stress disorder) F43.10 [place] [address] [place] [address] 23164- 4991 May, Anxiety F41.9 [place] [id number] [place] [address] 63129- 1460 May, PTSD (post-traumatic stress disorder) F43.10 and Borderline personality disorder F60.3 [facility] [id number] [place] [address] 37190- 7544 Apr, [facility] [id number] [place] [address] [id number] March, Dental examination Z01.20 and Dental caries K02.9 [facility] [id number] [place] [address] 41018- 2765 March, Dental examination Z01.20 [place] [id number] [place] [address] 97057- 6791 March, Tooth abscess K04.7 and Tooth pain K08.89 [place] [id number] [place] [address] 92979- 5864 March, Borderline personality disorder F60.3 [facility] [address], [place] [address]- 1822 March, ADHD (attention deficit hyperactivity disorder) F90.9 ; Night terror F51.4 ; Bulimia F50.2 and Anxiety F41.9 [facility] [id number] [place] [address] 73043- 4404 Feb, Borderline personality disorder F60.3 ; ADHD (attention deficit hyperactivity disorder) F90.9 ; Anxiety F41.9 ; Bulimia F50.2 ; Obsessive-compulsive disorder, unspecified type F42.9 and Night terror F51.4 [facility] [id number] [place] [address] 25459- 8197 Feb, [facility] [id number] [place] [address] 19147- 5388 Feb, [facility] [id number] [place] [address] 13527- 1767 Jul, [facility] [place] [id number] [place] [address] 22528- 6968 Jul, [facility] [id number] [place] [address] 15442- 7746 Jul, [facility] [address], [place] [address]- 0902 Jul, [facility] [id number] [place] [address] 34484- 3503 Jun, [facility] [id number] [place] [address] 60855- 1738 Jun, [facility] [place] [id number] [place] [address] 77305- 0074 Jun, [facility] [address], [place] [address]- 9371 Jun, [facility] [id number] [place] [address] 37553- 6987 Apr, [facility] [address] [id number] [place] [address]- 4186 Apr, [facility] [place] [facility] [address] [id number] [place] [address]- 4953 March, [facility] [place] [facility] [address] [id number] [place] [address]- 6783 March, [facility] [place] [facility] [address] [id number] [place] [address]- 7445 Jan, [facility] [place] [facility] [address] [id number] [place] [address]- 9784 Jan, [facility] [place] [facility] [address] [id number] [place] [address]- 7877 Jan, [facility] [address] [facility] [id number] [place] [address]- 2410 Jan, [facility] [place] [facility] [address] [id number] [place] [address]- 9758 Jan, [facility] [place] [facility] [address] [id number] [place] [address]- 3709 Dec, [facility] [place] [facility] [address] [facility] [id number] [place] [address]- 9305 Dec, [facility] [place] [facility] [address] [facility] [id number] [place] [address]- 7304 Oct, [facility] [place] [facility] [address] [id number] [place] [address]- 9400 Oct, [facility] [place] [facility] [address] [id number] [place] [address]- 2296 Oct, [facility] [place] [facility] [address] [facility] [id number] [place] [address]- 3836 Oct, [facility] [place] [facility] [address] [facility] [id number] [place] [address]- 0763 Sep, [facility] [place] [facility] [address] [id number] [place] [address]- 5845 Sep, [facility] [place] [facility] [address] [id number] [place] [address]- 3450 Sep, [facility] [place] [facility] [address] [id number] [place] [address]- 7041 Aug, [facility] [place] [facility] [address] [id number] [place] [address]- 5632 Aug, [facility] [place] [facility] [address] [id number] [place] [address]- 7733 Aug, [facility] [place] [facility] [address] [id number] [place] [address]- 9452 Aug, [facility] [place] [facility] [address] [id number] [place] [address]- 1968 Aug, [facility] [place] [facility] [address] [id number] [place] [address]- 1347 Aug, [facility] [place] [facility] [address] [id number] [place] [address]- 3115 Aug, [facility] [place] [facility] [address] [id number] [place] [address]- 6471 Jul, [facility] [place] [facility] [address] [id number] [place] [address]- 1492 Jun, [facility] [place] [facility] [address] [id number] [place] [address]- 7822 Jun, [facility] [place] [facility] [address] [id number] [place] [address]- 8472 Jun, [facility] [place] [facility] [address] [id number] [place] [address]- 5821 Jun, [facility] [place] [facility] [address] [id number] [place] [address]- 7846 Jun, [facility] [place] [facility] [address] [id number] [place] [address]- 3671 Jun, [facility] [address] [id number] [place] [address]- 3210 May, [facility] [place] [facility] [address] [id number] [place] [address]- 9596 May, [facility] [address] [id number] [place] [address] 2545 May, [facility] [place] [facility] [address] [id number] [place] [address]- 1600 May, [facility] [address] [id number] [place] [address]- 5049 March, [facility] [address] [id number] [place] [address]- 3786 March, [facility] [address] [id number] [place] [address]- 3530 March, [facility] [address] [id number] [place] [address]- 8082 Feb, [facility] [address] [id number] [place] [address]- 1932 Feb, [facility] [place] [facility] [address] [id number] [place] [address]- 7236 Feb, [facility] [address] [id number] [place] [address]- 7539 Feb, [facility] [place] [facility] [address] [id number] [place] [address]- 1606 Jan, [facility] [place] [facility] [address] [id number] [place] [address]- 8585 Jan, [facility] [place] [facility] [address] [id number] [place] [address]- 5371 Jan, [facility] [place] [facility] [address] [id number] [place] [address]- 3927 Dec, [facility] [place] [facility] [address] [id number] [place] [address]- 8852 14 Dec, 2012 [facility] [address] [id number] [place] [address]- 5526 12 Dec, 2012 [facility] [address] [id number] [place] [address] 2546 05 Dec, 2012 [facility] [address] [id number] [place] [address] 2546 04 Dec, 2012 [facility] [address] [id number] [place] [address] 2546 Nov, [facility] [address] [id number] [place] [address]- 9376 Nov, [facility] [address] [id number] [place] [address]- 5916 Nov, [facility] [address] [id number] [place] [address]- 4436 Nov, [facility] [address] [id number] [place] [address] 2541 Oct, [facility] [address] [id number] [place] [address] 2546 Oct, [facility] [address] [id number] [place] [address] 2546 Oct, [facility] [address] [id number] [place] [address] 2546 Oct, [facility] [address] [id number] [place] [address] 2546 Oct, [facility] [place] [facility] [address] [id number] [place] [address] 2546 Oct, [facility] [place] [facility] [address] [id number] [place] [address] 2546 Oct, [facility] [place] [facility] [address] [id number] [place] [address]- 2914 Oct, [facility] [place] [facility] [address] [id number] [place] [address]- 7463 Oct, [facility] [place] [facility] [address] [id number] [place] [address]- 1077 Oct, [facility] [place] [facility] [address] [id number] [place] [address]- 3347 Oct, [facility] [place] [facility] [address] [id number] [place] [address]- 6116 Oct, [facility] [place] [facility] [address] [id number] [place] [address]- 8523 Oct, [facility] [place] [facility] [address] [id number] [place] [address]- 0015 Sep, [facility] [place] [facility] [address] [id number] [place] [address]- 8378 Sep, [facility] [place] [facility] [address] [id number] [place] [address]- 9799 Sep, [facility] [place] [facility] [address] [id number] [place] [address]- 9901 Sep, [facility] [place] [facility] [address] [id number] [place] [address]- 9169 Sep, [facility] [place] [facility] [address] [id number] [address]- 0350 Sep, [facility] [place] [facility] [address] [id number], [place] [address]- 8737 Sep, [facility] [place] [facility] [address] [id number] [place] [address]- 6333 Sep, [facility] [place] [facility] [address] [id number], [place] [address]- 6758 Sep, [facility] [place] [facility] [address] [facility] [id number] [place] [address]- 7534 Sep, [facility] [place] [facility] [address] [id number] [place] [address]- 0659 Sep, [facility] [place] [facility] [address] [id number] [place] [address]- 1644 Sep, [facility] [place] [facility] [address] [id number] [place] [address]- 7232 Aug, [facility] [place] [facility] [address] [id number] [place] [address]- 8029 Aug, [facility] [place] [facility] [address] [id number] [place] [address]- 3069 Aug, [facility] [place] [facility] [address] [id number] [place] 2087 Aug, [facility] [place] [facility] [address] [id number] [place] [address]- 6296 Aug, [facility] [place] [facility] [address] [id number] [place] [address]- 9120 Aug, [facility] [place] [facility] [address] [id number] [place] [address]- 0567 Aug, [facility] [place] [facility] [address] [id number] [place] [address]- 3940 Aug, [facility] [place] [facility] [address] [facility] [id number] [place] [address] Aug, [facility] [place] [facility] [address] [id number] [place] [address] Aug, [facility] [place] [facility] [address] [id number] [place] [address] Aug, [facility] [place] [facility] [address] [id number] [place] [address] Aug, [facility] [place] [facility] [address] [id number] [place] [address] Jul, [facility] [place] [facility] [address] [id number] [place] [address] 27 Jul, 2012 [facility] [place] [facility] [address] [id number] [place] [address] Jul, 2011 [facility] [place] [facility] [address] [id number] [place] [address] Jul, [facility] [place] [facility] [address] [id number] [place] [address] 05 Jul, 2012 [facility] [place] [facility] [address] [id number] [place] [address] Jul, [facility] [place] [facility] [address] [id number] [place] [address] Jun, [facility] [place] [facility] [address] [id number] [place] [address] Jun, [facility] [place] [facility] [address] [id number] [place] [address] Jun, [facility] [place] [facility] [address] [id number] [place] [address] May, [facility] [place] [facility] [address] [id number] [place] [address] May, [facility] [place] [facility] [address] [id number] [place] [address] May, [facility] [place] [facility] [address] [id number] [place] [address] May, [facility] [place] [facility] [address] [id number] [place] [address] May, [facility] [place] [facility] [address] [id number] [place] [address] May, [facility] [place] [facility] [address] [id number] [place] [address] Apr, [facility] [facility] [address] [id number] [place] [address] Feb, [facility] [place] [facility] [address] [id number] [place] [address] 18 Feb, 2012 [facility] [place] [facility] [address] [id number] [place] [address] 11 Feb, 2012 [facility] [place] [facility] [address] [id number] [place] [address] 10 Feb, 2012 [facility] [facility] [address] [facility] [id number] [place] [address] 16 Jan, 2012 [facility] [place] [facility] [address] [id number] [place] [address] 12 Jan, 2012 [facility] [place] [facility] [address] [id number] [place] [address] 29 Dec, 2011 [facility] [place] [facility] [address] [id number] [place] [address] 28 Dec, 2011 [facility] [place] [facility] [address] [facility] [id number] [place] [address] 21 Dec, 2011 [facility] [place] [facility] [address] [id number] [place] [address] 14 Dec, 2011 [facility] [place] [facility] [address] [facility] [id number] [place] [address] 14 Dec, 2011 [facility] [address] [facility] [id number] [place] [address] 13 Dec, 2011 [facility] [address] [facility] [id number] [place] [address]- [address] 09 Dec, 2011 [facility] [place] [facility] [address] [facility] [id number] [place] [address] 07 Dec, 2011 [facility] [facility] [address] [id number] [place] [address] 02 Dec, 2011 [facility] [facility] [address] [facility] [id number] [place] [address] 30 Nov, 2011 [facility] [place] [facility] [address] [facility] [id number] [place] [address] Nov, [facility] [facility] [address] [id number] [place] [address] Nov, [facility] [address] [id number] [place] [address] Nov, [facility] [address] [id number] [place] [address] Nov, [facility] [facility] [address] [id number] [place] [address] Nov, [facility] [address] [id number] [place] [address] Nov, [facility] [address] [id number] [place] [address] Nov, [facility] [address] [id number] [place] [address] Nov, [facility] [address] [id number] [place] [address] Oct, [facility] [address] [id number] [place] [address] Oct, [facility] [address] [id number] [place] [address] Oct, [facility] [address] [id number] [place] [address] Oct, [facility] [address] [id number] [place] [address] Oct, [facility] [address] [id number] [place] [address] Oct, [facility] [place] [facility] [address] [id number] [place] [address] Sep, [facility] [place] [facility] [address] [id number] [place] [address] Aug, [facility] [address] [id number] [place] [address] 19 Jul, 2011 [facility] [place] [facility] [address] [id number] [place] [address] 17 Nov, 2010 [facility] [place] [facility] [address] [id number] [place] [address] 10 Nov, 2010 [facility] [place] [facility] [address] [id number] [place] [address] 23 Oct, 2010 [facility] [place] [facility] [address] [id number] [place] [address] 10 Sep, 2010 [facility] [place] [facility] [address] [id number] [place] [address] Sep, [facility] [place] [facility] [address] [id number] [place] [address] 18 Aug, 2010 [facility] [place] [facility] [address] [id number] [place] [address] 14 Aug, 2010 [facility] [place] [facility] [address] [id number] [place] [address] 14 Aug, 2010 [facility] [place] [facility] [address] [id number] [place] [address] 13 Feb, 2010 [facility] [place] [facility] [address] [id number] [place] [address] 10 Dec, 2009 [facility] [place] [facility] [address] [id number] [address] 30 Oct, 2009 [facility] [place] [facility] [address] [id number] [place] [address] Oct, [facility] [place] [facility] [address] [id number] [place] [address] 254 08 Oct, 2009 [facility] [place] [facility] [address] [id number] [place] [address] Sep, [facility] [place] [facility] [address] [id number] [place] [address] Sep, [facility] [place] [facility] [address] [facility] [id number] [place] [address] 12 Sep, 2009 [facility] [address] [facility] [id number] [place] [address] 14 Aug, 2009 [facility] [address] [facility] [id number] [place] [address] 14 Aug, 2009 IMMUNIZATIONS No Known Immunizations SOCIAL HISTORY Never Assessed REASON FOR VISIT f/u PLAN OF CARE Activity Details Follow Up 2 Weeks Reason:depressed VITAL SIGNS MEDICATIONS Medication Instructions Dosage Frequency Start Date End Date Duration Status Latuda 20 mg Orally Once a day 1 tablet with food 24h 30 day(s) Active RESULTS No Results PROCEDURES Procedure Date Ordered Result Body Site Psychotherapy, patient &/family, 30 minutes, established patient Aug 23, 2017 INSTRUCTIONS MEDICATIONS ADMINISTERED No Known Medications [...] EGD Hospitalization History mental health issues x2 [facility] in [place] 2016 & 02/2017 Hospitalization History Surgery(s)/Childbirth(s)
--- OUTSIDE RECORDS SUMMARY | 2018-08-03 08:10 | XMS REPORT ---
Author Author RUBEN GUERRIER Organization [facility] Address [address] [place] [address] Care Team Providers Care Ammonia Worker Name Role Phone FAREED RUBEN Unavailable PROBLEMS Type Condition ICD9-CM Code SEP67-HH Code Onset Dates Condition Status SNOMED Code Problem Anxiety F41.9 Active 28102291 Problem Severe episode of recurrent major depressive disorder, with psychotic features F33.3 Active 07631468 Problem PTSD (post-traumatic stress disorder) F43.10 Active 35476662 Problem Borderline personality disorder F60.3 Active 75901489 Problem Night terror F51.4 Active 36042764 Problem Cannabis use disorder, mild, abuse F12.10 Active 14523274 Problem Sciatica, unspecified side M54.30 Active 35174909 Problem Adjustment disorder with mixed anxiety and depressed mood F43.23 Active 39210944 Problem Mood disorder F39 Active 91448285 Problem Schizo affective schizophrenia F25.0 Active 512250856 Problem Bipolar 1 disorder F31.9 Active 551974914 ALLERGIES No Information ENCOUNTERS Encounter Location Date Diagnosis [place] [id number] [place] [address] 00434- 8180 March, [facility] [id number] [place] [address] Feb, Breast cancer screening Z12.31 [facility] [address] [place] [address] 44119- 2860 17 Feb, 2018 Mood disorder F39 and PTSD (post-traumatic stress disorder) F43.10 [facility] [address] [place] [address] 44265- 3640 12 Feb, 2018 PTSD (post-traumatic stress disorder) F43.10 ; Mood disorder F39 ; Borderline personality disorder F60.3 and Cannabis use disorder, mild, abuse F12.10 [place] [address] [place] [id number] [place] [address] 33361- 9454 Feb, Schizo affective schizophrenia F25.0 ; Adjustment disorder with mixed anxiety and depressed mood F43.23 ; Night terror F51.4 ; Anxiety F41.9 and Borderline personality disorder F60.3 [place] [id number] [place] [address] 80888- 8352 Feb, [place] [address] [address]- 6310 Feb, Mood disorder F39 [place] [address] [address] [id number] [place] [address] 99549- 8827 Feb, Annual physical exam Z00.00 ; BMI 40.0-44.9, adult Z68.41 and Nipple discharge N64.52 [place] [address] 42283- 4641 Jan, Schizo affective schizophrenia F25.0 ; Adjustment disorder with mixed anxiety and depressed mood F43.23 ; Night terror F51.4 ; Anxiety F41.9 and Borderline personality disorder F60.3 [place] [id number] [place] [address] 37819- 1719 Jan, Mood disorder F39 ; PTSD (post-traumatic stress disorder) F43.10 ; Borderline personality disorder F60.3 and High risk medication use Z79.899 [place] [address] [address] [id number] [place] [address] 75529- 1114 Dec, Anxiety F41.9 and Borderline personality disorder F60.3 [place] [id number] [place] [address] 98870- 3399 Dec, [place] [address] [id number] [place] [address] 08064- 1041 Dec, Anxiety F41.9 and Borderline personality disorder F60.3 [place] [address] [address] [id number] [place] [address] 22190- 0979 Dec, [facility] [id number] [place] [address] 82623- 8700 Dec, [facility] [address] 01406- 9354 Nov, Acute non-recurrent maxillary sinusitis J01.00 ; Mood disorder F39 and Sciatica, unspecified side M54.30 [facility] [address] 91109- 2552 Nov, Mood disorder F39 ; PTSD (post-traumatic stress disorder) F43.10 and Borderline personality disorder F60.3 [facility] [address] 99146- 8832 Nov, Anxiety F41.9 and Borderline personality disorder F60.3 [facility] [address] 66427- 8514 Nov, [facility] [address] 21141- 7172 Nov, Anxiety F41.9 and Sciatica, unspecified side M54.30 [facility] [address] 02931- 7972 Oct, Anxiety F41.9 [facility] [id number] [place] [address] 50302- 2949 Oct, Mood disorder F39 ; PTSD (post-traumatic stress disorder) F43.10 ; Borderline personality disorder F60.3 and High risk medication use Z79.899 [facility] [address] [place] [id number] [place] [address] [id number] 11 Oct, 2017 Dental caries K02.9 and Dental examination Z01.20 [facility] [address] [address] [id number] [place] [address] 47879- 7484 13 Sep, 2017 Dysuria R30.0 and Abdominal pain, right lower quadrant R10.31 [facility] [id number] [place] [address] 57920- 6359 Aug, Mood disorder F39 ; PTSD (post-traumatic stress disorder) F43.10 and Borderline personality disorder F60.3 [facility] [address] [place] [address] [id number] [place] [address] 83544- 1401 Aug, [facility] [address] [id number] [place] [address] 36949- 6463 Aug, [facility] [id number] [place] [address] 80761- 1893 Aug, Severe episode of recurrent major depressive disorder, with psychotic features F33.3 ; PTSD (post-traumatic stress disorder) F43.10 ; Adjustment disorder with mixed anxiety and depressed mood F43.23 and Borderline personality disorder F60.3 [facility] [address] [place] [id number] [place] [address] 62592- 1250 Aug, Mood disorder F39 ; PTSD (post-traumatic stress disorder) F43.10 and Borderline personality disorder F60.3 [facility] [address] [place] [address] 89577- 5533 Aug, [facility] [address] [place] [address] [id number] [place] [address] 72033- 8136 Aug, Bipolar 1 disorder F31.9 and Schizo affective schizophrenia F25.0 [facility] [address] [place] [address] [id number] [place] [address] 42480- 2022 Aug, Mood disorder F39 [facility] [address] [place] [address] [id number] [place] [address] 94481- 5643 Aug, Bipolar 1 disorder F31.9 and Schizo affective schizophrenia F25.0 [facility] [address] [place] [address] [id number] [place] [address] 04212- 8516 Aug, Bipolar 1 disorder F31.9 and Schizo affective schizophrenia F25.0 [facility] [address] [facility] [id number] [place] [address] 71742- 1353 Aug, [facility] [address] [place] [address] [id number] [place] [address] 52394- 7085 Aug, PTSD (post-traumatic stress disorder) F43.10 and Borderline personality disorder F60.3 [facility] [address] [address]- 5883 Aug, [facility] [id number] [place] [address] 23910- 0328 Aug, Mood disorder F39 ; PTSD (post-traumatic stress disorder) F43.10 ; Borderline personality disorder F60.3 and Adjustment disorder with mixed anxiety and depressed mood F43.23 [facility] [address] [place] [address] 45865- 2675 Jul, [facility] [address] [place] [id number] [place] [address] 74049- 7775 Jul, Mood disorder F39 ; PTSD (post-traumatic stress disorder) F43.10 and Borderline personality disorder F60.3 [place] [address] [id number] [place] [address] 40521- 7630 Jul, [place] [address] [place] [address] 42870- 9844 Jun, Anxiety F41.9 ; ADHD (attention deficit hyperactivity disorder) F90.9 ; Night terror F51.4 ; Bulimia F50.2 ; Severe episode of recurrent major depressive disorder, with psychotic features F33.3 and PTSD ( post-traumatic stress disorder) F43.10 [place] [address] [place] [address] 08517- 1503 Jun, Borderline personality disorder F60.3 ; Mood disorder F39 and PTSD (post-traumatic stress disorder) F43.10 [place] [address] [address]- 8009 Jun, Anxiety F41.9 [place] [address] [place] [address] 95794- 7516 Jun, Anxiety F41.9 ; ADHD (attention deficit hyperactivity disorder) F90.9 ; Night terror F51.4 ; Bulimia F50.2 ; Severe episode of recurrent major depressive disorder, with psychotic features F33.3 and PTSD ( post-traumatic stress disorder) F43.10 [facility] [id number] [place] [address] 95167- 2499 Jun, ADHD (attention deficit hyperactivity disorder) F90.9 ; Night terror F51.4 ; Bulimia F50.2 ; Anxiety F41.9 ; Severe episode of recurrent major depressive disorder, with psychotic features F33.3 and PTSD ( post-traumatic stress disorder) F43.10 [place] [address] [place] [address] [id number] [place] [address] 68530- 9137 May, Anxiety F41.9 [place] [address] [address] [id number] [place] [address] 62237- 7517 May, PTSD (post-traumatic stress disorder) F43.10 and Borderline personality disorder F60.3 [place] [address] [place] [address] [id number] [place] [address] 38167- 7096 Apr, [facility] [address] [place] [id number] [place] [address] [id number] March, Dental examination Z01.20 and Dental caries K02.9 [place] [address] [address] [id number] [place] [address] 78826- 2354 March, Dental examination Z01.20 [place] [address] [address] [id number] [place] [address] 66768- 0932 March, Tooth abscess K04.7 and Tooth pain K08.89 [place] [address] [address] [id number] [place] [address] 73846- 5740 March, Borderline personality disorder F60.3 [facility] [address] 03783- 8199 March, ADHD (attention deficit hyperactivity disorder) F90.9 ; Night terror F51.4 ; Bulimia F50.2 and Anxiety F41.9 [facility] [address] [place] [address] [id number] [place] [address] 61848- 1188 Feb, 2017 Borderline personality disorder F60.3 ; ADHD (attention deficit hyperactivity disorder) F90.9 ; Anxiety F41.9 ; Bulimia F50.2 ; Obsessive-compulsive disorder, unspecified type F42.9 and Night terror F51.4 [facility] [address], [place] [address]- 0184 Feb, [facility] [id number] [place] [address] 32593- 9703 Feb, [facility] [address] [id number] [place] [address] 93190- 6779 Jul, [facility] [id number] [place] [address] 89147- 8397 Jul, [facility] [address] [id number] [place] [address] 48596- 5210 Jul, [facility] [id number] [place] [address] 93951- 7710 Jul, [facility] [id number] [place] [address] 62340- 7331 Jun, [facility] [id number] [place] [address] 70227- 0561 Jun, [facility] [address] [place] [address] 45092- 6711 Jun, [facility] [address] [id number] [place] [address] 06067- 0251 Jun, [facility] [address] [place] [address] 14344- 7922 Apr, [facility] [id number] [place] [address] 89990- 7684 Apr, [facility] [id number] [place] [address] 28841- 0590 March, [facility] [id number] [place] [address] 36624- 2546 March, [facility] [place] [facility] [address] [id number] [place] [address]- 4012 Jan, [facility] [place] [facility] [address] [id number] [place] [address]- 3116 Jan, [facility] [place] [facility] [address] [id number] [place] [address]- 0716 Jan, [facility] [place] [facility] [address] [id number] [place] [address]- 0285 Jan, [facility] [place] [facility] [address] [id number] [place] [address]- 8351 Jan, [facility] [place] [facility] [address] [id number] [place] [address]- 0600 Dec, [facility] [place] [facility] [address] [id number] [place] [address]- 7479 Dec, [facility] [place] [facility] [address] [id number] [place] [address]- 5001 Oct, [facility] [place] [facility] [address] [id number] [place] 1344 Oct, [facility] [place] [facility] [address] [id number] [place]- 2205 Oct, [facility] [place] [facility] [address] [id number] [place] [address]- 5362 Oct, [facility] [place] [facility] [address] [id number] [place] [address]- 0594 Sep, [facility] [place] [facility] [address] [id number] [place] [address]- 2116 Sep, [facility] [place] [facility] [address] [id number] [place] [address]- 6770 Sep, [facility] [place] [facility] [address] [id number] [place] [address]- 1956 Aug, [facility] [place] [facility] [address] [id number] [place] [address]- 8753 Aug, [facility] [place] [facility] [address] [id number] [place] [address]- 0256 Aug, [facility] [place] [facility] [address] [id number] [place] [address]- 2546 Aug, [facility] [place] [facility] [address] [id number] [place] [address]- 0285 Aug, [facility] [place] [facility] [address] [id number] [place] [address] 2549 Aug, [facility] [place] [facility] [address] [id number] [place] [address]- 6075 Aug, [facility] [place] [facility] [address] [id number] [place] [address]- 7106 Jul, [facility] [place] [facility] [address] [id number] [place] [address]- 7758 Jun, [facility] [place] [facility] [address] [id number] [place] [address]- 5841 Jun, [facility] [place] [facility] [address] [id number] [place] [address]- 3843 Jun, [facility] [place] [facility] [address] [id number] [place] [address]- 6978 Jun, [facility] [place] [facility] [address] [id number] [place] [address]- 0687 Jun, [facility] [place] [facility] [address] [id number] [place] [address]- 1300 Jun, [facility] [place] [facility] [address] [id number] [place] [address]- 3263 May, [facility] [place] [facility] [address] [id number] [place] [address]- 2546 May, [facility] [place] [facility] [address] [id number] [place] [address]- 2545 May, [facility] [address] [id number] [place] [address]- 9441 May, [facility] [place] [facility] [address] [id number] [place] [address]- 3790 March, [facility] [address] [id number] [place] [address]- 0990 March, [facility] [place] [facility] [address] [id number] [place] [address]- 4335 March, [facility] [address] [id number] [place] [address]- 5621 Feb, [facility] [place] [facility] [address] [id number] [place] [address]- 5942 Feb, [facility] [place] [facility] [address] [id number] [place] [address]- 3943 Feb, [facility] [place] [facility] [address] [id number] [place] [address]- 4678 Feb, [facility] [place] [facility] [address] [id number] [place] [address]- 6034 Jan, [facility] [place] [facility] [address] [id number] [place] [address]- 3462 Jan, [facility] [place] [facility] [address] [id number] [place] [address]- 8997 Jan, [facility] [place] [facility] [address] [id number] [place] [address]- 0276 Dec, [facility] [place] [facility] [address] [id number] [place] [address]- 0187 Dec, [facility] [place] [facility] [address] [id number] [place] [address]- 3605 Dec, [facility] [place] [facility] [address] [id number] [place] [address]- 8280 Dec, [facility] [place] [facility] [address] [id number] [place] [address]- 1946 04 Dec, 2012 [facility] [address] [id number] [place] [address]- 8056 Nov, [facility] [address] [id number] [place] [address]- 0636 Nov, [facility] [address] [id number] [place] [address]- 5466 Nov, [facility] [address] [id number] [place] [address] 2548 14 Nov, 2012 [facility] [address] [id number] [place] 0876 Oct, [facility] [address] [id number] [place] [address]- 2168 Oct, [facility] [address] [id number] [place] [address]- 2046 Oct, [facility] [address] [id number] [place] [address]- 3855 Oct, [facility] [address] [id number] [place] [address] 2546 Oct, [facility] [address] [id number] [place] [address]- 2542 Oct, [facility] [address] [id number] [place] [address] 2546 Oct, [facility] [address] [id number] [place] [address] 2546 Oct, [facility] [address] [id number] [place] [address] 2546 Oct, [facility] [address] [id number] [place] [address]- 2546 Oct, [facility] [address] [id number] [place] [address]- 5300 Oct, [facility] [place] [facility] [address] [id number] [place] [address]- 2223 Oct, [facility] [place] [facility] [address] [id number] [place] [address]- 6576 Oct, [facility] [place] [facility] [address] [id number] [place] [address]- 3501 Sep, [facility] [place] [facility] [address] [id number] [place] [address]- 7802 Sep, [facility] [place] [facility] [address] [id number] [place] [address]- 9662 Sep, [facility] [place] [facility] [address] [id number] [place] [address]- 8290 Sep, [facility] [place] [facility] [address] [facility] [facility] [id number] [place] [address]- 2937 Sep, [facility] [place] [facility] [address] [id number], [place] [address]- 5020 Sep, [facility] [place] [facility] [address] [facility] [facility] [id number] [place] [address]- 2294 Sep, [facility] [place] [facility] [address] [facility] [facility] [id number], [place] [address]- 8562 Sep, [facility] [place] [facility] [address] [facility] [id number], [place] [address]- 3617 Sep, [facility] [place] [facility] [address] [id number], [place] [address]- 9443 Sep, [facility] [place] [facility] [address] [id number], [place] [address]- 7825 Sep, [facility] [place] [facility] [address] [id number], [place] [address]- 0680 Sep, [facility] [place] [facility] [address] [facility] [id number], [place] [address]- 7430 Aug, [facility] [place] [facility] [address] [id number], [place] [address]- 3672 31 Aug, 2012 [facility] [place] [facility] [address] [id number] [place] [address]- 6001 Aug, [facility] [place] [facility] [address] [id number] [place] [address]- 1773 Aug, [facility] [place] [facility] [address] [facility] [facility] [id number] [place] [address]- 9812 14 Aug, 2012 [facility] [place] [facility] [address] [id number] [place] [address] 14 Aug, 2012 [facility] [place] [facility] [address] [id number] [place] [address] Aug, [facility] [place] [facility] [address] [id number] [place] [address] Aug, [facility] [place] [facility] [address] [facility] [id number] [place] [address] Aug, [facility] [place] [facility] [address] [facility] [id number] [place] [address] 08 Aug, 2012 [facility] [place] [facility] [address] [facility] [id number] [place] [address] 02 Aug, 2012 [facility] [place] [facility] [address] [facility] [id number] [place] [address] 02 Aug, 2012 [facility] [place] [facility] [address] [facility] [id number], [place] [address] 28 Sep, 2011 [facility] [place] [facility] [address] [id number], [place] [address] 27 Sep, 2011 [facility] [place] [facility] [address] [id number] [place] [address] 2011 [facility] [place] [facility] [address] [facility] [id number] [place] [address] 10 Sep, 2011 [facility] [place] [facility] [address] [facility] [id number] [place] [address] 05 Sep, 2011 [facility] [place] [facility] [address] [id number] [place] [address] Jul, [facility] [place] [facility] [address] [id number] [place] [address] Jun, [facility] [place] [facility] [address] [id number] [place] [address] Jun, [facility] [place] [facility] [address] [id number] [place] [address] Jun, [facility] [place] [facility] [address] [id number] [place] [address] May, [facility] [place] [facility] [address] [id number] [place] [address] May, [facility] [place] [facility] [address] [id number] [place] [address] May, [facility] [place] [facility] [address] [id number] [place] [address]- [address] May, [facility] [place] [facility] [address] [id number] [place] [address] May, [facility] [place] [facility] [address] [id number] [place] [address]- [address] May, [facility] [facility] [address] [id number] [place] [address] Apr, [facility] [place] [facility] [address] [id number] [place] [address] Feb, [facility] [place] [facility] [address] [id number] [place] [address] 18 Feb, 2012 [facility] [place] [facility] [address] [id number] [place] [address]- [address] 11 Feb, 2012 [facility] [place] [facility] [address] [id number] [place] [address] Feb, [facility] [place] [facility] [address] [id number] [place] [address] 16 Jan, 2012 [facility] [address] [id number] [place] [address]- [address] 12 Jan, 2012 [facility] [place] [facility] [address] [id number] [place] [address] 29 Dec, 2011 [facility] [place] [facility] [address] [facility] [id number] [place] [address] 28 Dec, 2011 [facility] [place] [facility] [address] [id number] [place] [address] 21 Dec, 2011 [facility] [place] [facility] [address] [id number] [place] [address]- [address] 14 Dec, 2011 [facility] [place] [facility] [address] [facility] [id number] [place] [address]- 47[address] 14 Dec, 2011 [facility] [place] [facility] [address] [facility] [id number] [place] [address]- [address] 13 Dec, 2011 [facility] [place] [facility] [address] [id number] [place] [address]- [address] 09 Dec, 2011 [facility] [place] [facility] [address] [facility] [id number] [place] [address]- [address] 07 Dec, 2011 [facility] [place] [facility] [address] [facility] [id number] [place] [address]- [address] 02 Dec, 2011 [facility] [place] [facility] [address] [facility] [id number] [place] [address] 30 Nov, 2011 [facility] [place] [facility] [address] [id number] [place] [address] Nov, [facility] [place] [facility] [address] [id number] [place] [address] 24 Nov, 2011 [facility] [place] [facility] [address] [facility] [id number] [place] [address] Nov, [facility] [place] [facility] [address] [facility] [id number] [place] [address] 17 Nov, 2011 [facility] [place] [facility] [address] [id number] [place] [address] 16 Nov, 2011 [facility] [place] [facility] [address] [id number] [place] [address] Nov, [facility] [place] [facility] [address] [id number] [place] [address] Nov, [facility] [place] [facility] [address] [id number] [place] [address] Nov, [facility] [place] [facility] [address] [id number] [place] [address] Oct, [facility] [place] [facility] [address] [id number] [place] [address] Oct, [facility] [place] [facility] [address] [id number] [place] [address] Oct, [facility] [place] [facility] [address] [id number] [place] [address] Oct, [facility] [place] [facility] [address] [id number] [place] [address] Oct, [facility] [place] [facility] [address] [id number] [place] [address] Oct, [facility] [place] [facility] [address] [id number] [place] [address] Sep, [facility] [place] [facility] [address] [id number] [place] [address] Aug, [facility] [place] [facility] [address] [id number] [place] [address] Jul, [facility] [place] [facility] [address] [id number] [place] [address] Nov, [facility] [place] [facility] [address] [id number] [place] [address] Nov, [facility] [place] [facility] [address] [id number] [place] [address] 23 Oct, 2010 [facility] [address] [facility] [id number], [place] [address] 10 Sep, 2010 [facility] [address] [facility] [id number], [place] [address] Sep, [facility] [address] [facility] [id number], [place] [address] 18 Aug, 2010 [facility] [address] [facility] [id number], [place] [address] 14 Aug, 2010 [facility] [address] [facility] [id number] [place] [address] 14 Aug, 2010 [facility] [address] [facility] [id number] [address] Feb, [facility] [address] [facility] [id number], [place] [address] Dec, [facility] [address] [id number], [place] [address] 30 Oct, 2009 [facility] [address] [id number], [place] [address] Oct, [facility] [address] [id number], [place] [address] Oct, [facility] [address] [id number], [place] [address] Sep, [facility] [address] [facility] [id number], [place] [address] Sep, [facility] [address] [facility] [id number], [place] [address] Sep, [facility] [address] [facility] [id number], [place] [address] 14 Aug, 2009 [facility] [address] [id number], [place] [address] 14 Aug, 2009 IMMUNIZATIONS No Known Immunizations SOCIAL HISTORY Never Assessed REASON FOR VISIT F/U PLAN OF CARE Activity Details Follow Up 2 Weeks Reason:grief, depression, anxiety VITAL SIGNS MEDICATIONS Unknown Medications RESULTS No Results PROCEDURES Procedure Date Ordered Result Body Site Psychotherapy, patient &/family, 30 minutes, established patient Jul 12, 2017 INSTRUCTIONS MEDICATIONS ADMINISTERED No Known Medications [...] mental health issues x2 Ward Unit in [place] 2016 & 02/2017 Hospitalization History Surgery(s)/Childbirth(s)
--- OUTSIDE RECORDS SUMMARY | 2018-08-03 08:11 | XMS REPORT ---
Author Author RACHAEL CHEATHAM Organization [facility] Address [address] [place] [address] Care Team Providers Care Carpenter Apprentice Name Role Phone RACHAEL CHEATHAM Unavailable PROBLEMS Type Condition ICD9-CM Code [id number] Code Onset Dates Condition Status SNOMED Code Problem Anxiety F41.9 Active 42684955 Problem Severe episode of recurrent major depressive disorder, with psychotic features F33.3 Active 77124544 Problem PTSD (post-traumatic stress disorder) F43.10 Active 76389133 Problem Borderline personality disorder F60.3 Active 75476923 Problem Night terror F51.4 Active 67992435 Problem Cannabis use disorder, mild, abuse F12.10 Active 01616544 Problem Sciatica, unspecified side M54.30 Active 64540247 Problem Adjustment disorder with mixed anxiety and depressed mood F43.23 Active 29474832 Problem Mood disorder F39 Active 73994168 Problem Schizo affective schizophrenia F25.0 Active 708301357 Problem Bipolar 1 disorder F31.9 Active [id number] ALLERGIES No Information ENCOUNTERS Encounter Location Date Diagnosis [facility] [id number] [address] March, [facility] [id number] [address] March, [facility] [id number] [address] Feb, [facility] [id number] [place] [address] Feb, Breast cancer screening Z12.31 [facility] [address] [address] 17 Feb, 2018 Mood disorder F39 and PTSD (post-traumatic stress disorder) F43.10 [facility] [id number] [place] [address]79[address]- 1863 Feb, PTSD (post-traumatic stress disorder) F43.10 ; Mood disorder F39 ; Borderline personality disorder F60.3 and Cannabis use disorder, mild, abuse F12.10 [facility] [id number] [place] [address]8877- 9716 Feb, Schizo affective schizophrenia F25.0 ; Adjustment disorder with mixed anxiety and depressed mood F43.23 ; Night terror F51.4 ; Anxiety F41.9 and Borderline personality disorder F60.3 [facility] [id number] [place] [address]- 7649 Feb, [facility] [address] [address] Feb, Mood disorder F39 [facility] [address] [address] Feb, Annual physical exam Z00.00 ; BMI 40.0-44.9, adult Z68.41 and Nipple discharge N64.52 [facility] [id number] [place] [address] 59993- 9794 Jan, Schizo affective schizophrenia F25.0 ; Adjustment disorder with mixed anxiety and depressed mood F43.23 ; Night terror F51.4 ; Anxiety F41.9 and Borderline personality disorder F60.3 [facility] [id number] [place] [address] 57273- 2028 Jan, Mood disorder F39 ; PTSD (post-traumatic stress disorder) F43.10 ; Borderline personality disorder F60.3 and High risk medication use Z79.899 [facility] [id number] [place] [address] 79582- 2282 Dec, Anxiety F41.9 and Borderline personality disorder F60.3 [facility] [id number] [place] [address] 98793- 6557 Dec, [facility] [address] [address] Dec, Anxiety F41.9 and Borderline personality disorder F60.3 [facility] [id number] [place] [address] 04210- 6140 Dec, [facility] [id number] [place] [address] 21485- 8264 Dec, [facility] [id number] [place] [address] 76507- 4855 Nov, Acute non-recurrent maxillary sinusitis J01.00 ; Mood disorder F39 and Sciatica, unspecified side M54.30 [facility] [id number] [place] [address] 20154- 3836 Nov, Mood disorder F39 ; PTSD (post-traumatic stress disorder) F43.10 and Borderline personality disorder F60.3 [facility] [id number] [place] [address] 88504- 5852 Nov, Anxiety F41.9 and Borderline personality disorder F60.3 [facility] [id number] [place] [address] 20697- 7905 Nov, [facility] [id number] [place] [address] 72518- 3148 Nov, Anxiety F41.9 and Sciatica, unspecified side M54.30 [facility] [id number] [place] [address] 61883- 0888 Oct, Anxiety F41.9 [facility] [id number] [place] [address] 05434- 7966 Oct, Mood disorder F39 ; PTSD (post-traumatic stress disorder) F43.10 ; Borderline personality disorder F60.3 and High risk medication use Z79.899 [facility] [address] [place] [address] [id number] Oct, 2017 Dental caries K02.9 and Dental examination Z01.20 [facility] [id number] [place] [address] 37269- 7371 Sep, Dysuria R30.0 and Abdominal pain, right lower quadrant R10.31 [facility] [id number] [place] [address] Aug, Mood disorder F39 ; PTSD (post-traumatic stress disorder) F43.10 and Borderline personality disorder F60.3 [facility] [id number] [place] [address] 89912- 4894 Aug, [facility] [id number] [place] [address] 41326- 3405 Aug, [facility] [id number] [place] [address] 49599- 5441 Aug, Severe episode of recurrent major depressive disorder, with psychotic features F33.3 ; PTSD (post-traumatic stress disorder) F43.10 ; Adjustment disorder with mixed anxiety and depressed mood F43.23 and Borderline personality disorder F60.3 [facility] [id number] [place] [address] 18813- 5439 Aug, Mood disorder F39 ; PTSD (post-traumatic stress disorder) F43.10 and Borderline personality disorder F60.3 [facility] [id number] [place] [address] 59384- 0163 Aug, [facility] [id number] [place] [address] 72200- 9044 Aug, Bipolar 1 disorder F31.9 and Schizo affective schizophrenia F25.0 [facility] [id number] [place] [address] 98274- 7247 Aug, Mood disorder F39 [facility] [id number] [place] [address] 28614- 4885 Aug, Bipolar 1 disorder F31.9 and Schizo affective schizophrenia F25.0 [facility] [id number] [place] [address] 63982- 1118 Aug, Bipolar 1 disorder F31.9 and Schizo affective schizophrenia F25.0 [facility] [id number] [place] [address] 53448- 8931 Aug, [facility] [id number] [place] [address] 19057- 1143 Aug, PTSD (post-traumatic stress disorder) F43.10 and Borderline personality disorder F60.3 [facility] [id number] [place] [address] 49410- 5119 Aug, [facility] [id number] [place] [address] 68029- 6630 Aug, Mood disorder F39 ; PTSD (post-traumatic stress disorder) F43.10 ; Borderline personality disorder F60.3 and Adjustment disorder with mixed anxiety and depressed mood F43.23 [facility] [id number] [place] [address] 29513- 2137 Jul, [facility] [id number] [place] [address] 68230- 7525 Jul, Mood disorder F39 ; PTSD (post-traumatic stress disorder) F43.10 and Borderline personality disorder F60.3 [facility] [id number] [place] [address] 71080- 3106 Jul, [facility] [id number] [place] [address] 15370- 8330 Jun, Anxiety F41.9 ; ADHD (attention deficit hyperactivity disorder) F90.9 ; Night terror F51.4 ; Bulimia F50.2 ; Severe episode of recurrent major depressive disorder, with psychotic features F33.3 and PTSD ( post-traumatic stress disorder) F43.10 [facility] [id number] [place] [address] 68107- 9959 Jun, Borderline personality disorder F60.3 ; Mood disorder F39 and PTSD (post-traumatic stress disorder) F43.10 [facility] [id number] [place] [address] 72760- 6134 Jun, Anxiety F41.9 [facility] [id number] [place] [address] 09414- 4152 Jun, Anxiety F41.9 ; ADHD (attention deficit hyperactivity disorder) F90.9 ; Night terror F51.4 ; Bulimia F50.2 ; Severe episode of recurrent major depressive disorder, with psychotic features F33.3 and PTSD ( post-traumatic stress disorder) F43.10 [facility] [id number] [place] [address] 73719- 5505 Jun, ADHD (attention deficit hyperactivity disorder) F90.9 ; Night terror F51.4 ; Bulimia F50.2 ; Anxiety F41.9 ; Severe episode of recurrent major depressive disorder, with psychotic features F33.3 and PTSD ( post-traumatic stress disorder) F43.10 [facility] [id number] [place] [address] 83521- 1051 May, Anxiety F41.9 [facility] [address] 87881- 0792 May, PTSD (post-traumatic stress disorder) F43.10 and Borderline personality disorder F60.3 [facility] [id number] [place] [address] 37971- 5523 Apr, [facility] [id number] [place] [address] [id number] March, Dental examination Z01.20 and Dental caries K02.9 [facility] [id number] [place] [address] 27583- 3012 March, Dental examination Z01.20 [facility] [id number] [place] [address] 44340- 7655 March, Tooth abscess K04.7 and Tooth pain K08.89 [facility] [id number] [place] [address] 39602- 9127 March, Borderline personality disorder F60.3 [facility] [id number] [place] [address] 86504- 3010 March, ADHD (attention deficit hyperactivity disorder) F90.9 ; Night terror F51.4 ; Bulimia F50.2 and Anxiety F41.9 [facility] [address] [address]- 5523 Feb, Borderline personality disorder F60.3 ; ADHD (attention deficit hyperactivity disorder) F90.9 ; Anxiety F41.9 ; Bulimia F50.2 ; Obsessive-compulsive disorder, unspecified type F42.9 and Night terror F51.4 [facility] [address] [address]- 6181 Feb, [facility] [id number] [place] [address] 32902- 9436 Feb, [facility] [id number] [place] [address] 33632- 2085 Jul, [facility] [id number] [place] [address] 74865- 9455 Jul, [facility] [address] [address]- 5566 Jul, [facility] [id number] [address]- 0981 Jul, [facility] [address], [place] [address]- 2327 Jun, [facility] [address] [address]- 4772 Jun, [facility] [address], [place] [address]- 5752 Jun, [facility] [id number] [address]- 7744 Jun, [facility] [address] [address]- 8167 Apr, [facility] [address] [address]- 4786 Apr, [facility] [address] [id number] [place] [address]- 5608 March, [facility] [place] [facility] [address] [id number] [place] [address]- 6530 March, [facility] [place] [facility] [address] [id number] [place] [address]- 7356 Jan, [facility] [place] [facility] [address] [id number] [place] [address]- 5359 Jan, [facility] [place] [facility] [address] [id number] [place] [address]- 3626 Jan, [facility] [place] [facility] [address] [id number] [place] [address]- 5313 Jan, [facility] [place] [facility] [address] [id number] [place] [address]- 9605 Jan, [facility] [place] [facility] [address] [id number] [place] [address]- 7273 Dec, [facility] [place] [facility] [address] [id number] [place] [address]- 4691 Dec, [facility] [place] [facility] [address] [id number] [place] [address]- 6145 Oct, [facility] [place] [facility] [address] [id number] [place] [address]- 6402 Oct, [facility] [place] [facility] [address] [id number] [place] [address]- 2240 Oct, [facility] [place] [facility] [address] [id number] [place] [address]- 6370 Oct, [facility] [place] [facility] [address] [id number] [place] [address]- 7195 Sep, [facility] [place] [facility] [address] [id number] [place] [address]- 4650 Sep, [facility] [place] [facility] [address] [id number] [place] [address]- 7054 Sep, [facility] [place] [facility] [address] [id number] [place] [address]- 0148 Aug, [facility] [place] [facility] [address] [id number] [place] 7663 Aug, [facility] [place] [facility] [address] [id number] [place] [address]- 6310 Aug, [facility] [place] [facility] [address] [id number] [place] [address]- 3452 Aug, [facility] [place] [facility] [address] [id number] [place] 8964 Aug, [facility] [place] [facility] [address] [id number] [place] [address]- 6975 Aug, [facility] [place] [facility] [address] [id number] [place] [address]- 7712 Aug, [facility] [place] [facility] [address] [id number] [place] [address]- 8601 Jul, [facility] [place] [facility] [address] [id number] [place] [address]- 5206 Jun, [facility] [place] [facility] [address] [id number] [place] [address]- 9183 Jun, [facility] [place] [facility] [address] [id number] [place] [address]- 9659 Jun, [facility] [place] [facility] [address] [id number] [place] [address]- 5465 Jun, [facility] [place] [facility] [address] [id number] [place] [address]- 4104 Jun, [facility] [place] [facility] [address] [id number] [place] [address]- 3443 Jun, [facility] [place] [facility] [address] [id number] [place] [address]- 1042 May, [facility] [place] [facility] [address] [id number] [place] [address]- 6923 May, [facility] [address] [id number] [place] [address]- 0674 May, [facility] [address] [id number] [place] [address]- 2928 May, [facility] [address] [id number] [place] [address]- 6564 March, [facility] [address] [id number] [place] [address]- 6509 March, [facility] [address] [id number] [place] [address]- 5124 March, [facility] [address] [id number] [place] [address]- 1883 Feb, [facility] [address] [id number] [place] [address]- 2810 Feb, [facility] [address] [id number] [place] [address]- 7036 Feb, [facility] [address] [id number] [place] [address]- 2487 Feb, [facility] [address] [id number] [place] [address]- 3791 Jan, [facility] [address] [id number] [place] [address]- 4768 Jan, [facility] [address] [id number] [place] [address]- 6349 Jan, [facility] [place] [facility] [address] [id number] [place] [address]- 0561 Dec, [facility] [address] [id number] [place] [address]- 6490 14 Dec, 2012 [facility] [address] [id number] [address]- 6657 Dec, [facility] [address] [id number] [place] [address] 2546 Dec, [facility] [address] [id number] [place] [address]- 5346 Dec, [facility] [address] [id number] [place] [address]- 3216 Nov, [facility] [address] [id number] [place] [address]- 6000 Nov, [facility] [address] [id number] [place] [address]- 9536 Nov, [facility] [address] [id number] [place] [address]- 4282 Nov, [facility] [address] [id number] [place] [address]- 1664 Oct, [facility] [address] [id number] [place] [address]- 8407 Oct, [facility] [address] [id number] [place] [address]- 8814 Oct, [facility] [address] [id number] [place] [address]- 7687 Oct, [facility] [address] [id number] [place] [address]- 1846 Oct, [facility] [place] [facility] [address] [id number] [place] [address] 2546 Oct, [facility] [address] [id number] [place] [address] 2546 Oct, [facility] [place] [facility] [address] [id number] [place] [address]- 2546 Oct, [facility] [address] [facility] [id number] [place] [address]- 9592 Oct, [facility] [place] [facility] [address] [id number] [place] [address]- 6818 Oct, [facility] [place] [facility] [address] [id number] [place] [address]- 5336 Oct, [facility] [place] [facility] [address] [id number] [place] [address]- 3576 Oct, [facility] [place] [facility] [address] [id number] [place] [address]- 1026 Oct, [facility] [place] [facility] [address] [id number] [place] [address]- 6104 Sep, [facility] [place] [facility] [address] [id number] [place] [address]- 8646 Sep, [facility] [place] [facility] [address] [id number] [place] [address]- 7290 Sep, [facility] [place] [facility] [address] [id number] [place] [address]- 2791 Sep, [facility] [place] [facility] [address] [id number] [place] [address]- 6368 Sep, [facility] [place] [facility] [address] [id number] [place] [address]- 3643 Sep, [facility] [place] [facility] [address] [id number] [place] [address]- 7382 Sep, [facility] [place] [facility] [address] [id number] [place] [address]- 4185 Sep, [facility] [place] [facility] [address] [id number] [place] [address]- 8940 Sep, [facility] [place] [facility] [address] [id number] [place] [address]- 7846 Sep, [facility] [place] [facility] [address] [id number] [place] [address]- 3797 Sep, [facility] [place] [facility] [address] [id number] [place] [address]- 1806 Sep, [facility] [place] [facility] [address] [id number] [place] [address]- 1657 Aug, [facility] [place] [facility] [address] [id number] [place] [address]- 1911 Aug, [facility] [place] [facility] [address] [facility] [id number] [place] [address]- 9036 Aug, [facility] [place] [facility] [address] [id number] [place] [address]- 1131 Aug, [facility] [place] [facility] [address] [id number] [place] [address]- 9087 Aug, [facility] [place] [facility] [address] [id number] [place] [address]- 0188 Aug, [facility] [place] [facility] [address] [id number] [place] [address]- 2913 Aug, [facility] [place] [facility] [address] [id number], [place] [address]- 4151 Aug, [facility] [place] [facility] [address] [id number], [place] [address] Aug, [facility] [place] [facility] [address] [facility] [id number], [place] [address] Aug, [facility] [place] [facility] [address] [id number], [place] [address] Aug, [facility] [place] [facility] [address] [id number], [place] [address] Aug, [facility] [place] [facility] [address] [id number], [place] [address] Jul, [facility] [place] [facility] [address] [id number], [place] [address] 27 Jul, 2012 [facility] [place] [facility] [address] [facility] [id number], [place] [address] Jul, [facility] [place] [facility] [address] [id number] [place] [address] 10 Jul, 2012 [facility] [place] [facility] [address] [id number] [place] [address] 05 Jul, 2012 [facility] [place] [facility] [address] [id number] [place] [address] Jul, [facility] [place] [facility] [address] [id number] [place] [address] Jun, [facility] [place] [facility] [address] [id number] [place] [address] Jun, [facility] [place] [facility] [address] [id number] [place] [address] Jun, [facility] [place] [facility] [address] [id number] [place] [address] May, [facility] [place] [facility] [address] [id number] [place] [address] May, [facility] [place] [facility] [address] [id number] [place] [address] May, [facility] [place] [facility] [address] [id number] [place] [address] May, [facility] [place] [facility] [address] [id number] [place] [address] May, [facility] [place] [facility] [address] [id number] [place] [address] May, [facility] [place] [facility] [address] [id number] [place] [address] Apr, [facility] [place] [facility] [address] [id number] [place] [address] Feb, [facility] [place] [facility] [address] [id number] [place] [address] 18 Feb, 2012 [facility] [place] [facility] [address] [id number] [place] [address] Feb, [facility] [place] [facility] [address] [id number] [place] [address] 10 Feb, 2012 [facility] [place] [facility] [address] [id number] [place] [address] 16 Jan, 2012 [facility] [place] [facility] [address] [id number] [place] [address] 12 Jan, 2012 [facility] [place] [facility] [address] [id number] [place] [address] 29 Dec, 2011 [facility] [place] [facility] [address] [id number] [place] [address]- [address] 28 Dec, 2011 [facility] [place] [facility] [address] [id number] [place] [address] 21 Dec, 2011 [facility] [place] [facility] [address] [id number] [place] [address]- [address] 14 Dec, 2011 [facility] [place] [facility] [address] [id number] [place] [address] 14 Dec, 2011 [facility] [place] [facility] [address] [id number] [place] [address] 13 Dec, 2011 [facility] [place] [facility] [address] [id number] [place] [address] 09 Dec, 2011 [facility] [place] [facility] [address] [id number] [place] [address] 07 Dec, 2011 [facility] [place] [facility] [address] [id number] [place] [address] Dec, [facility] [place] [facility] [address] [id number] [place] [address] Nov, [facility] [place] [facility] [address] [id number] [place] [address] Nov, [facility] [place] [facility] [address] [id number] [place] [address] Nov, [facility] [place] [facility] [address] [id number] [place] [address] Nov, [facility] [address] [id number] [place] [address] Nov, [facility] [address] [id number] [place] [address]- [address] 16 Nov, 2011 [facility] [address] [id number] [place] [address] Nov, [facility] [facility] [address] [id number] [place] [address] Nov, [facility] [address] [id number] [place] [address] Nov, [facility] [address] [id number] [place] [address] Oct, [facility] [address] [id number] [place] [address] Oct, [facility] [address] [id number] [place] [address] Oct, [facility] [address] [id number] [place] [address] Oct, [facility] [address] [id number] [place] [address] Oct, [facility] [address] [id number] [place] [address] Oct, [facility] [address] [id number] [place] [address] Sep, [facility] [address] [id number] [place] [address] Aug, [facility] [address] [id number] [place] [address] Jul, [facility] [address] [id number] [place] [address] Nov, [facility] [place] [facility] [address] [id number] [place] [address] 10 Nov, 2010 [facility] [place] [facility] [address] [id number] [place] [address] 23 Oct, 2010 [facility] [place] [facility] [address] [id number] [place] [address] 10 Sep, 2010 [facility] [place] [facility] [address] [id number] [place] [address] Sep, [facility] [place] [facility] [address] [id number] [place] [address] 18 Aug, 2010 [facility] [place] [facility] [address] [id number] [place] [address] 14 Aug, 2010 [facility] [place] [facility] [address] [facility] [id number] [place] [address] 14 Aug, 2010 [facility] [place] [facility] [address] [id number], [place] [address] 13 Feb, 2010 [facility] [place] [facility] [address] [id number] [place] [address] 10 Dec, 2009 [facility] [place] [facility] [address] [id number], [place] [address] 30 Oct, 2009 [facility] [place] [facility] [address] [id number], [place] [address] Oct, [facility] [place] [facility] [address] [id number], [place] [address] 08 Oct, 2009 [facility] [place] [facility] [address] [id number] [place] [address] Sep, [facility] [place] [facility] [address] [id number], [place] [address] Sep, [facility] [place] [facility] [address] [facility] [id number], [place] [address] Sep, [facility] [place] [facility] [address] [id number], [place] [address] Aug, [facility] [address] [facility] [id number] [place] [address] Aug, IMMUNIZATIONS No Known Immunizations SOCIAL HISTORY Never Assessed REASON FOR VISIT PLAN OF CARE VITAL SIGNS MEDICATIONS Medication Instructions Dosage Frequency Start Date End Date Duration Status Klonopin 1 MG Orally Twice a day 1 tablet 12h May, Active RESULTS No Results PROCEDURES No Known [...] EGD Hospitalization History mental health issues x2 [facility] in [place] 2016 & 02/2017 Hospitalization History Surgery(s)/Childbirth(s)
--- OUTSIDE RECORDS SUMMARY | 2018-08-03 08:11 | XMS REPORT ---
Author Author OLEG RUBI Organization [facility] Address [address] [place] [address] Care Team Providers Care Disability Specialist Name Role Phone OLEG RUBI Unavailable PROBLEMS Type Condition ICD9-CM Code XKN88-DQ Code Onset Dates Condition Status SNOMED Code Problem Mood disorder F39 Active 34182569 Problem Schizo affective schizophrenia F25.0 Active 744938454 Problem Adjustment disorder with mixed anxiety and depressed mood F43.23 Active 83665109 Problem Other chronic pain G89.29 Active 91436187 Problem Lumbago with sciatica, right side M54.41 Active 458633803 Problem Sciatica, unspecified side M54.30 Active 35872877 Problem Bipolar 1 disorder F31.9 Active 851743775 Problem Morbid obesity due to excess calories E66.01 Active 277995440 Problem Cannabis use disorder, mild, abuse F12.10 Active 49264720 Problem Night terror F51.4 Active 90921873 Problem Anxiety F41.9 Active 07674066 Problem PTSD (post-traumatic stress disorder) F43.10 Active 39473106 Problem Borderline personality disorder F60.3 Active 34552242 Problem Severe episode of recurrent major depressive disorder, with psychotic features F33.3 Active 34051342 ALLERGIES Substance Reaction Event Type Date Status Pseudoephedrine HCl ER unknown Drug Allergy Oct, Active Phenytoin rash Drug Allergy Oct, Active Penicillamine anaphylaxis Drug Allergy Oct, Active Cephalexin anaphylaxis Drug Allergy Oct, Active Albuterol unknown Drug Allergy Oct, Active ENCOUNTERS Encounter Location Date Diagnosis [facility] [id number] [address] May, [facility] [id number] [address] Apr, Acute non-recurrent maxillary sinusitis J01.00 [facility] [address] [address] Apr, PTSD (post-traumatic stress disorder) F43.10 ; Mood disorder F39 ; Borderline personality disorder F60.3 ; Cannabis use disorder, mild, abuse F12.10 and 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 [facility] [address] [address] Apr, [facility] [id number] [place] [address] 44144- 3384 07 Apr, 2018 Annual physical exam Z00.00 and High risk medication use Z79.899 [id number] [place] [address] 69824- 7278 Apr, PTSD (post-traumatic stress disorder) F43.10 [facility] [address] [address] Apr, [id number] [place] [address] 78201- 8402 March, BMI 40.0-44.9, adult Z68.41 ; Morbid obesity due to excess calories E66.01 ; Lumbago with sciatica, right side M54.41 and Other chronic pain G89.29 [facility] [address] [place] [address] 05810- 4953 March, PTSD (post-traumatic stress disorder) F43.10 [facility] [id number] [place] [address] 45781- 9623 March, PTSD (post-traumatic stress disorder) F43.10 ; Mood disorder F39 ; Borderline personality disorder F60.3 and Cannabis use disorder, mild, abuse F12.10 [facility] [address] [place] [address] 34806- 4380 Feb, [place] [address] [address] 39[address] Feb, [facility] [address] [place] [address] 19 Feb, 2018 Breast cancer screening Z12.31 [facility] [id number] [place] [address] 25576- 3594 17 Feb, 2018 Mood disorder F39 and PTSD (post-traumatic stress disorder) F43.10 [place] [address] [place] [address] 75805- 2935 Feb, PTSD (post-traumatic stress disorder) F43.10 ; Mood disorder F39 ; Borderline personality disorder F60.3 and Cannabis use disorder, mild, abuse F12.10 [facility] [id number] [place] [address] 88610- 4339 Feb, Schizo affective schizophrenia F25.0 ; Adjustment disorder with mixed anxiety and depressed mood F43.23 ; Night terror F51.4 ; Anxiety F41.9 and Borderline personality disorder F60.3 [facility] [id number] [place] [address] 97753- 7403 Feb, [facility] [id number] [place] [address] 88385- 8199 Feb, Mood disorder F39 [id number] [place] [address] 91520- 8153 Feb, Annual physical exam Z00.00 ; BMI 40.0-44.9, adult Z68.41 and Nipple discharge N64.52 [place] [address] [place] [address] 27566- 0355 Jan, Schizo affective schizophrenia F25.0 ; Adjustment disorder with mixed anxiety and depressed mood F43.23 ; Night terror F51.4 ; Anxiety F41.9 and Borderline personality disorder F60.3 [place] [address] [place] [address] 89023- 4396 Jan, Mood disorder F39 ; PTSD (post-traumatic stress disorder) F43.10 ; Borderline personality disorder F60.3 and High risk medication use Z79.899 [facility] [facility] [id number] [address] 0[address] Dec, Anxiety F41.9 and Borderline personality disorder F60.3 [facility] [id number] [place] [address] 03531- 2536 Dec, [facility] [id number] [place] [address] 54699- 8396 Dec, Anxiety F41.9 and Borderline personality disorder F60.3 [facility] [id number] [place] [address] 62616- 2755 Dec, [facility] [id number] [place] [address] 80759- 7410 Dec, [facility] [id number] [place] [address] 40437- 7991 Nov, Acute non-recurrent maxillary sinusitis J01.00 ; Mood disorder F39 and Sciatica, unspecified side M54.30 [facility] [id number] [place] [address] 42046- 7384 Nov, Mood disorder F39 ; PTSD (post-traumatic stress disorder) F43.10 and Borderline personality disorder F60.3 [facility] [address] [place] [address] 73443- 6032 Nov, Anxiety F41.9 and Borderline personality disorder F60.3 [facility] [address] [place] [address] 25755- 3264 Nov, [facility] [address] [place] [address] 35279- 9610 Nov, Anxiety F41.9 and Sciatica, unspecified side M54.30 [facility] [id number] [place] [address] 49655- 1491 Oct, Anxiety F41.9 [facility] [address] [address] 9236 Oct, Mood disorder F39 ; PTSD (post-traumatic stress disorder) F43.10 ; Borderline personality disorder F60.3 and High risk medication use Z79.899 [facility] [address] [place] [address] [id number] Oct, 2017 Dental caries K02.9 and Dental examination Z01.20 [facility] [address] [place] [address] 69435- 5248 13 Sep, 2017 Dysuria R30.0 and Abdominal pain, right lower quadrant R10.31 [facility] [id number] [place] [address] 38906- 8416 Aug, Mood disorder F39 ; PTSD (post-traumatic stress disorder) F43.10 and Borderline personality disorder F60.3 [facility] [id number] [place] [address] 66239- 2609 Aug, [facility] [id number] [place] [address] 35420- 2627 Aug, [facility] [id number] [place] [address] 35176- 6143 Aug, Severe episode of recurrent major depressive disorder, with psychotic features F33.3 ; PTSD (post-traumatic stress disorder) F43.10 ; Adjustment disorder with mixed anxiety and depressed mood F43.23 and Borderline personality disorder F60.3 [facility] [address] [place] [address] 82992- 3534 17 Aug, 2017 Mood disorder F39 ; PTSD (post-traumatic stress disorder) F43.10 and Borderline personality disorder F60.3 [facility] [address] [place] [address] 71015- 4382 Aug, [facility] [id number] [place] [address] 29643- 4739 Aug, Bipolar 1 disorder F31.9 and Schizo affective schizophrenia F25.0 [facility] [address] [address]- 3426 Aug, Mood disorder F39 [facility] [address] [address]- 4322 Aug, Bipolar 1 disorder F31.9 and Schizo affective schizophrenia F25.0 [facility] [address] [place] [address] 99881- 8136 Aug, Bipolar 1 disorder F31.9 and Schizo affective schizophrenia F25.0 [facility] [address] [place] [address] 50750- 2895 Aug, [facility] [id number] [place] [address] 50390- 9790 Aug, PTSD (post-traumatic stress disorder) F43.10 and Borderline personality disorder F60.3 [facility] [address] [place] [address] 79162- 5776 Aug, [place] [address] [place] [address] 35033- 0459 Aug, Mood disorder F39 ; PTSD (post-traumatic stress disorder) F43.10 ; Borderline personality disorder F60.3 and Adjustment disorder with mixed anxiety and depressed mood F43.23 [facility] [address] [place] [address] 58112- 7129 Jul, [facility] [address] [address]- 3094 Jul, Mood disorder F39 ; PTSD (post-traumatic stress disorder) F43.10 and Borderline personality disorder F60.3 [facility] [address] [address]- 5021 Jul, [facility] [address] [place] [address] 82680- 0411 Jun, Anxiety F41.9 ; ADHD (attention deficit hyperactivity disorder) F90.9 ; Night terror F51.4 ; Bulimia F50.2 ; Severe episode of recurrent major depressive disorder, with psychotic features F33.3 and PTSD ( post-traumatic stress disorder) F43.10 [facility] [id number] [address]- 1216 Jun, Borderline personality disorder F60.3 ; Mood disorder F39 and PTSD (post-traumatic stress disorder) F43.10 [facility] [address] [place] [address] 67736- 9916 Jun, Anxiety F41.9 [facility] [id number] [place] [address] 67322- 0213 Jun, Anxiety F41.9 ; ADHD (attention deficit hyperactivity disorder) F90.9 ; Night terror F51.4 ; Bulimia F50.2 ; Severe episode of recurrent major depressive disorder, with psychotic features F33.3 and PTSD ( post-traumatic stress disorder) F43.10 [facility] [address] [place] [address] 59713- 3289 Jun, ADHD (attention deficit hyperactivity disorder) F90.9 ; Night terror F51.4 ; Bulimia F50.2 ; Anxiety F41.9 ; Severe episode of recurrent major depressive disorder, with psychotic features F33.3 and PTSD ( post-traumatic stress disorder) F43.10 [address] [place] [address] 27814- 8386 May, Anxiety F41.9 [facility] [address] [place] [address] 45771- 0054 May, PTSD (post-traumatic stress disorder) F43.10 and Borderline personality disorder F60.3 [facility] [address] [address]- 1908 Apr, [facility] [address] [place] [address] [id number] March, Dental examination Z01.20 and Dental caries K02.9 [facility] [address] [place] [address] 25556- 9174 March, Dental examination Z01.20 [facility] [id number] [place] [address] 53872- 2247 March, Tooth abscess K04.7 and Tooth pain K08.89 [facility] [id number] [place] [address] 57290- 3230 March, Borderline personality disorder F60.3 [facility] [id number] [place] [address] 87832- 2983 March, ADHD (attention deficit hyperactivity disorder) F90.9 ; Night terror F51.4 ; Bulimia F50.2 and Anxiety F41.9 [facility] [id number] [place] [address] 82717- 6088 Feb, Borderline personality disorder F60.3 ; ADHD (attention deficit hyperactivity disorder) F90.9 ; Anxiety F41.9 ; Bulimia F50.2 ; Obsessive-compulsive disorder, unspecified type F42.9 and Night terror F51.4 [facility] [id number] [place] [address] 99574- 7220 Feb, [facility] [id number] [place] [address] 17660- 6726 Feb, [facility] [id number] [place] [address] 44089- 9026 Jul, [facility] [id number] [place] [address] 79907- 2530 Jul, [facility] [id number] [place] [address] 95429- 2674 Jul, [facility] [id number] [place] [address] 85472- 2543 Jul, [facility] [id number] [place] [address] 13918- 6652 Jun, [facility] [id number] [place] [address] 39356- 5496 Jun, [facility] [id number] [place] [address] 03838- 4917 Jun, [facility] [address] [id number] [place] [address]- 0958 Jun, [facility] [place] [facility] [address] [id number] [place] [address]- 7507 Apr, [facility] [place] [facility] [address] [id number] [place] [address]- 0114 Apr, [facility] [place] [facility] [address] [id number] [place] [address]- 8477 March, [facility] [place] [facility] [address] [id number] [place] [address]- 8510 March, [facility] [place] [facility] [address] [id number] [place] [address]- 9698 Jan, [facility] [place] [facility] [address] [id number] [place] [address]- 8501 Jan, [facility] [place] [facility] [address] [id number] [place] [address]- 9263 Jan, [facility] [place] [facility] [address] [id number] [place] [address]- 1853 Jan, [facility] [place] [facility] [address] [id number] [place] [address]- 6901 Jan, [facility] [place] [facility] [address] [id number] [place] [address]- 2961 Dec, [facility] [place] [facility] [address] [id number] [place] [address]- 2611 Dec, [facility] [place] [facility] [address] [id number] [place] [address]- 5249 Oct, [facility] [place] [facility] [address] [id number] [place] [address]- 1945 Oct, [facility] [place] [facility] [address] [id number] [place] [address]- 3093 Oct, [facility] [place] [facility] [address] [id number] [place] [address]- 9466 Oct, [facility] [place] [facility] [address] [id number] [place] [address]- 8557 Sep, [facility] [place] [facility] [address] [id number] [place] [address]- 8066 Sep, [facility] [place] [facility] [address] [id number] [place] [address]- 3934 Sep, [facility] [place] [facility] [address] [id number] [place] [address]- 7637 Aug, [facility] [place] [facility] [address] [id number] [place] 1293 Aug, [facility] [place] [facility] [address] [id number] [place] [address]- 0369 Aug, [facility] [place] [facility] [address] [id number] [place] [address]- 3277 Aug, [facility] [place] [facility] [address] [id number] [place] [address]- 2062 Aug, [facility] [place] [facility] [address] [id number] [place] [address]- 6845 Aug, [facility] [place] [facility] [address] [id number] [place] [address]- 3673 Aug, [facility] [place] [facility] [address] [id number] [place] [address]- 2071 Jul, [facility] [place] [facility] [address] [id number] [place] [address]- 4857 Jun, [facility] [place] [facility] [address] [id number] [place] [address]- 9901 Jun, [facility] [place] [facility] [address] [id number] [place] [address]- 5429 Jun, [facility] [place] [facility] [address] [id number] [place] [address]- 0405 Jun, [facility] [place] [facility] [address] [id number] [place] [address]- 2546 Jun, [facility] [address] [id number] [place] [address]- 5220 Jun, [facility] [address] [id number] [place] [address] 2546 May, [facility] [address] [id number] [place] [address]- 0677 May, [facility] [address] [id number] [place] [address]- 2542 May, [facility] [address] [id number] [place] [address]- 3459 May, [facility] [address] [id number] [place] [address]- 9076 March, [facility] [address] [id number] [place] [address]- 6272 March, [facility] [address] [id number] [place] [address]- 5757 March, [facility] [address] [id number] [place] [address]- 9888 Feb, [facility] [address] [id number] [place] [address]- 9982 Feb, [facility] [address] [id number] [place] [address]- 9014 Feb, [facility] [address] [id number] [place] [address]- 2543 Feb, [facility] [address] [id number] [place] [address]- 2546 Jan, [facility] [address] [id number] [place] [address]- 2546 Jan, [facility] [address] [id number] [place] [address]- 4795 Jan, [facility] [address] [id number] [place] [address]- 8784 Dec, [facility] [place] [facility] [address] [id number] [place] [address]- 5516 14 Dec, 2012 [facility] [address] [id number] [place] [address]- 8976 Dec, [facility] [address] [id number] [place] [address]- 9555 Dec, [facility] [address] [id number] [place] 8451 Dec, [facility] [address] [id number] [place] [address]- 1165 Nov, [facility] [address] [id number] [place] [address]- 0198 Nov, [facility] [address] [id number] [place] [address]- 9013 Nov, [facility] [address] [id number] [place] [address]- 4977 Nov, [facility] [address] [id number] [place] [address]- 0556 Oct, [facility] [address] [id number] [place] [address]- 7549 Oct, [facility] [place] [facility] [address] [id number] [place] [address]- 6469 Oct, [facility] [place] [facility] [address] [id number] [place] [address]- 1336 Oct, [facility] [place] [facility] [address] [id number] [place] [address]- 2216 Oct, [facility] [place] [facility] [address] [id number] [place] 4593 Oct, [facility] [place] [facility] [address] [id number] [place] [address]- 2146 Oct, [facility] [place] [facility] [address] [id number] [place] [address]- 4776 Oct, [facility] [place] [facility] [address] [id number] [place] [address]- 8466 Oct, [facility] [place] [facility] [address] [id number] [place] [address]- 7426 Oct, [facility] [place] [facility] [address] [id number] [place] [address] 2546 Oct, [facility] [place] [facility] [address] [id number] [place] [address]- 0948 Oct, [facility] [place] [facility] [address] [id number] [place] [address]- 4298 Oct, [facility] [place] [facility] [address] [id number] [place] [address]- 9929 Sep, [facility] [place] [facility] [address] [id number] [place] [address]- 7195 Sep, [facility] [place] [facility] [address] [id number] [place] [address]- 5084 Sep, [facility] [place] [facility] [address] [facility] [id number] [place] [address]- 8467 Sep, [facility] [place] [facility] [address] [id number] [place] [address] Sep, [facility] [place] [facility] [address] [id number] [place] [address] Sep, [facility] [place] [facility] [address] [id number] [place] [address] Sep, [facility] [place] [facility] [address] [id number] [place] [address] Sep, [facility] [place] [facility] [address] [id number] [place] [address] Sep, [facility] [place] [facility] [address] [id number] [place] [address] Sep, [facility] [place] [facility] [address] [id number] [place] [address] Sep, [facility] [place] [facility] [address] [id number] [place] [address] Sep, [facility] [place] [facility] [address] [id number] [place] [address] Aug, [facility] [place] [facility] [address] [id number] [place] [address] Aug, [facility] [place] [facility] [address] [id number] [place] [address] Aug, [facility] [place] [facility] [address] [id number] [place] [address] Aug, [facility] [place] [facility] [address] [id number] [place] [address] Aug, [facility] [place] [facility] [address] [id number] [place] [address] Aug, [facility] [place] [facility] [address] [id number] [address] Aug, [facility] [place] [facility] [address] [id number] [place] [address] Aug, [facility] [place] [facility] [address] [id number] [place] [address] Aug, [facility] [place] [facility] [address] [id number] [place] [address] Aug, [facility] [place] [facility] [address] [id number] [place] [address] Aug, [facility] [place] [facility] [address] [id number] [place] [address] Aug, [facility] [place] [facility] [address] [id number] [place] [address] 28 Jul, 2011 [facility] [place] [facility] [address] [id number] [place] [address] 27 Jul, 2011 [facility] [place] [facility] [address] [id number] [place] [address] 21 Jul, 2012 [facility] [place] [facility] [address] [id number] [place] [address] 10 Jul, 2012 [facility] [place] [facility] [address] [id number] [place] [address] 05 Jul, 2012 [facility] [place] [facility] [address] [id number] [place] [address] 04 Jul, 2012 [facility] [place] [facility] [address] [id number] [place] [address] Jun, [facility] [place] [facility] [address] [id number] [place] [address] Jun, [facility] [place] [facility] [address] [id number] [place] [address] Jun, [facility] [place] [facility] [address] [id number] [place] [address] May, [facility] [place] [facility] [address] [id number] [place] [address] May, [facility] [place] [facility] [address] [id number] [place] [place] [address] May, [facility] [place] [facility] [address] [id number] [place] [address] May, [facility] [place] [facility] [address] [id number] [place] [address] May, [facility] [place] [facility] [address] [id number] [place] [address] May, [facility] [place] [facility] [address] [id number] [place] [address] Apr, [facility] [place] [facility] [address] [id number] [place] [address] 23 Feb, 2012 [facility] [place] [facility] [address] [id number] [place] [address] 8541 18 Feb, 2012 [facility] [place] [facility] [address] [id number] [place] [address] 11 Feb, 2012 [facility] [place] [facility] [address] [id number] [place] [address] 10 Feb, 2012 [facility] [place] [facility] [address] [id number] [place] [address] 16 Jan, 2012 [facility] [place] [facility] [address] [id number] [place] [address] 9969 12 Jan, 2012 [facility] [place] [facility] [address] [facility] [id number] [place] [address] 29 Dec, 2011 [facility] [place] [facility] [address] [id number] [place] [address] 28 Dec, 2011 [facility] [place] [facility] [address] [id number] [place] [address] 1655 21 Dec, 2011 [facility] [place] [facility] [address] [id number] [place] [address] 14 Dec, 2011 [facility] [place] [facility] [address] [id number] [place] [address] 14 Dec, 2011 [facility] [place] [facility] [address] [facility] [id number] [place] [address] 6763 13 Dec, 2011 [facility] [place] [facility] [address] [facility] [id number] [place] [address] 09 Dec, 2011 [facility] [place] [facility] [address] [id number] [place] [address] 9265 07 Dec, 2011 [facility] [place] [facility] [address] [facility] [id number] [place] [address] 4939 02 Dec, 2011 [facility] [place] [facility] [address] [id number] [address] 30 Nov, 2011 [facility] [address] [id number] [place] [address] Nov, [facility] [place] [facility] [address] [id number] [place] [address] 7112 Nov, [facility] [address] [id number] [place] [address] Nov, [facility] [place] [facility] [address] [id number] [place] [address] 3961 17 Nov, 2011 [facility] [address] [id number] [place] [address]000 Nov, [facility] [address] [id number] [place] [address] 69[address] Nov, [facility] [address] [id number] [place] [address] Nov, [facility] [place] [facility] [address] [id number] [place] [address] 0189 Nov, [facility] [address] [id number] [place] [address] Oct, [facility] [place] [facility] [address] [id number] [place] [address] 5[address] Oct, [facility] [place] [facility] [address] [id number] [address] Oct, [facility] [place] [facility] [address] [id number] [place] [address] 1302 Oct, [facility] [place] [facility] [address] [id number] [place] [address] 9197 Oct, [facility] [place] [facility] [address] [id number] [place] [address]108 Oct, [facility] [place] [facility] [address] [id number] [place] [address] 1081 Sep, [facility] [place] [facility] [address] [id number] [place] [address] 6301 19 Aug, 2011 [facility] [address] [id number] [place] [address] 6791 19 Jul, 2011 [facility] [place] [facility] [address] [id number] [place] [address] 2546 17 Nov, 2010 [facility] [address] [id number] [place] [address] 8676 10 Nov, 2010 [facility] [place] [facility] [address] [id number] [place] [address] 4597 Oct, [facility] [place] [facility] [address] [id number] [place] [address] 7095 Sep, [facility] [place] [facility] [address] [id number] [place] [address]- 2986 Sep, [facility] [place] [facility] [address] [id number] [place] [address]- 7414 18 Aug, 2010 [facility] [address] [id number] [place] [address]- 8696 14 Aug, 2010 [facility] [place] [facility] [address] [id number] [place] [address]- 5119 14 Aug, 2010 [facility] [place] [facility] [address] [facility] [id number] [place] [address]- 5559 13 Feb, 2010 [facility] [place] [facility] [address] [id number] [place] [address]- 6544 10 Dec, 2009 [facility] [place] [facility] [address] [id number] [place] [address]- 6855 30 Oct, 2009 [facility] [place] [facility] [address] [id number] [place] [address]- 8256 Oct, [facility] [place] [facility] [address] [id number] [place] [address]- 2546 Oct, [facility] [place] [facility] [address] [id number] [place] [address] 6807 Sep, [facility] [address] [facility] [id number] [address] Sep, [facility] [address] [facility] [id number] [place] [address] Sep, [facility] [address] [facility] [id number] [place] [address] Aug, [facility] [address] [facility] [id number] [place] [address] Aug, IMMUNIZATIONS No Known Immunizations SOCIAL HISTORY Never Assessed REASON FOR VISIT PLAN OF CARE Activity Details Follow Up as directed Reason:exam/prophy VITAL SIGNS Height 63 in 2017-10-23 Blood pressure systolic 139 mmHg 2017-10-23 Blood pressure diastolic 103 mmHg 2017-10-23 MEDICATIONS Medication Instructions Dosage Frequency Start Date End Date Duration Status Minipress 1 MG Orally at bedtime 4 capsules Active HydrOXYzine HCl 25 MG Orally three times a day as needed for anxiety 1-2 tablets Aug, Active [place] Carbonate 300 MG Orally twice a day 1 capsule 12h Active Gabapentin 600 MG Orally 3 times a day 1 tablet 8h 30 Active Menan 5-325 MG Orally every 6 hrs 1 tablet as needed 6h Oct, Oct, 4 days Active Ambien 5 MG Orally at bedtime as needed for anxiety 1 tablet 30 Active Menan 5-325 MG Orally every 6 hrs 1 tablet as needed 6h 13 Sep, 2017 Not-Taking Desvenlafaxine Succinate ER 100 MG Orally in morning 1 tablet Active Clindamycin HCl 300 MG Orally X1 then 1 every 8 hours until gone 2 capsules Oct, Oct, 7 days Active RESULTS No Results PROCEDURES Procedure Date Ordered Result Body Site LTD ORAL EVALUATION - PROBLEM FOCUS Oct 23, 2017 INTRAORL-PERIAPICAL 1 FILM [id number] Oct 23, 2017 SURG REMOVAL ERUPTED TOOTH Oct 23, 2017 INSTRUCTIONS MEDICATIONS ADMINISTERED No Known [...] EGD Hospitalization History mental health issues x2 [facility] in [place] 2016 & 02/2017 Hospitalization History Surgery(s)/Childbirth(s)
--- OUTSIDE RECORDS SUMMARY | 2018-08-03 08:12 | XMS REPORT ---
Author Author RUBEN GUERRIER Organization [facility] Address [address] [place] [address] Care Team Providers Care Automotive Brake Technician Name Role Phone FAREEDRUBEN Unavailable PROBLEMS Type Condition ICD9-CM Code XAH28-OO Code Onset Dates Condition Status SNOMED Code Problem Anxiety F41.9 Active 14091579 Problem PTSD (post-traumatic stress disorder) F43.10 Active 71551125 Problem Night terror F51.4 Active 59065083 Problem Borderline personality disorder F60.3 Active 18365817 Problem Sciatica, unspecified side M54.30 Active 77085594 Problem Schizo affective schizophrenia F25.0 Active 019778955 Problem Mood disorder F39 Active 15713608 Problem Severe episode of recurrent major depressive disorder, with psychotic features F33.3 Active 46352078 Problem Bipolar 1 disorder F31.9 Active 749903815 Problem Adjustment disorder with mixed anxiety and depressed mood F43.23 Active 28018993 ALLERGIES No Information ENCOUNTERS Encounter Location Date Diagnosis [place] [id number] [place] [address] 43035- 8379 Feb, [place] [address] [id number] [place] [address] 75551- 8507 Feb, Mood disorder F39 [place] [address] 27428- 2997 Feb, Annual physical exam Z00.00 ; BMI 40.0-44.9, adult Z68.41 and Nipple discharge N64.52 [place] [address] 10699- 5857 Jan, Schizo affective schizophrenia F25.0 ; Adjustment disorder with mixed anxiety and depressed mood F43.23 ; Night terror F51.4 ; Anxiety F41.9 and Borderline personality disorder F60.3 [place] [id number] [place] [address] 17388- 0323 Jan, Mood disorder F39 ; PTSD (post-traumatic stress disorder) F43.10 ; Borderline personality disorder F60.3 and High risk medication use Z79.899 [facility] [id number] [place] [address] 98367- 3353 Dec, Anxiety F41.9 and Borderline personality disorder F60.3 [facility] [id number] [place] [address] 60739- 7439 Dec, [facility] [address] 22226- 6893 Dec, Anxiety F41.9 and Borderline personality disorder F60.3 [facility] [id number] [place] [address] 53984- 5000 Dec, [facility] [id number] [place] [address] 28869- 8587 Dec, [facility] [id number] [place] [address] 74320- 0413 Nov, Acute non-recurrent maxillary sinusitis J01.00 ; Mood disorder F39 and Sciatica, unspecified side M54.30 [facility] [id number] [place] [address] 92386- 6991 Nov, Mood disorder F39 ; PTSD (post-traumatic stress disorder) F43.10 and Borderline personality disorder F60.3 [facility] [id number] [place] [address] 44625- 3945 Nov, Anxiety F41.9 and Borderline personality disorder F60.3 [facility] [id number] [place] [address] 38796- 8241 Nov, [facility] [id number] [place] [address] 30159- 4314 Nov, Anxiety F41.9 and Sciatica, unspecified side M54.30 [place] [address] [address] 5749 Oct, Anxiety F41.9 [facility] [id number] [place] [address] 00596- 0516 Oct, Mood disorder F39 ; PTSD (post-traumatic stress disorder) F43.10 ; Borderline personality disorder F60.3 and High risk medication use Z79.899 [facility] [id number] [place] [address] [id number] 11 Oct, 2017 Dental caries K02.9 and Dental examination Z01.20 [facility] [id number] [place] [address] 13581- 3566 Sep, Dysuria R30.0 and Abdominal pain, right lower quadrant R10.31 [facility] [id number] [place] [address] 05608- 8364 Aug, Mood disorder F39 ; PTSD (post-traumatic stress disorder) F43.10 and Borderline personality disorder F60.3 [facility] [id number] [place] [address] 35740- 3954 Aug, [facility] [id number] [place] [address] 71770- 3354 Aug, [facility] [id number] [place] [address] 15739- 8828 Aug, Severe episode of recurrent major depressive disorder, with psychotic features F33.3 ; PTSD (post-traumatic stress disorder) F43.10 ; Adjustment disorder with mixed anxiety and depressed mood F43.23 and Borderline personality disorder F60.3 [facility] [id number] [place] [address] 95012- 0956 Aug, Mood disorder F39 ; PTSD (post-traumatic stress disorder) F43.10 and Borderline personality disorder F60.3 [facility] [id number] [place] [address] 71716- 9456 Aug, [facility] [id number] [place] [address] 65424- 8101 Aug, Bipolar 1 disorder F31.9 and Schizo affective schizophrenia F25.0 [facility] [address] [address]- 3576 Aug, Mood disorder F39 [facility] [id number] [address] 2546 Aug, Bipolar 1 disorder F31.9 and Schizo affective schizophrenia F25.0 [facility] [id number] [place] [address] 41592- 9686 Aug, Bipolar 1 disorder F31.9 and Schizo affective schizophrenia F25.0 [facility] [id number] [place] [address] 22890- 4566 Aug, [facility] [id number] [place] [address] 02962- 4576 Aug, PTSD (post-traumatic stress disorder) F43.10 and Borderline personality disorder F60.3 [facility] [address] [address]- 9216 Aug, [facility] [id number] [place] [address] 35531- 7934 Aug, Mood disorder F39 ; PTSD (post-traumatic stress disorder) F43.10 ; Borderline personality disorder F60.3 and Adjustment disorder with mixed anxiety and depressed mood F43.23 [facility] [address] [address]- 2376 Jul, [facility] [id number] [address]- 8561 Jul, Mood disorder F39 ; PTSD (post-traumatic stress disorder) F43.10 and Borderline personality disorder F60.3 [facility] [id number] [address]- 0726 Jul, [facility] [id number] [place] [address] 44243- 0277 Jun, Anxiety F41.9 ; ADHD (attention deficit hyperactivity disorder) F90.9 ; Night terror F51.4 ; Bulimia F50.2 ; Severe episode of recurrent major depressive disorder, with psychotic features F33.3 and PTSD ( post-traumatic stress disorder) F43.10 [facility] [address] [address]- 4305 Jun, Borderline personality disorder F60.3 ; Mood disorder F39 and PTSD (post-traumatic stress disorder) F43.10 [facility] [address] [address]- 3844 Jun, Anxiety F41.9 [facility] [id number] [place] [address] 25948- 9677 Jun, Anxiety F41.9 ; ADHD (attention deficit hyperactivity disorder) F90.9 ; Night terror F51.4 ; Bulimia F50.2 ; Severe episode of recurrent major depressive disorder, with psychotic features F33.3 and PTSD ( post-traumatic stress disorder) F43.10 [facility] [address] [address]- 7935 Jun, ADHD (attention deficit hyperactivity disorder) F90.9 ; Night terror F51.4 ; Bulimia F50.2 ; Anxiety F41.9 ; Severe episode of recurrent major depressive disorder, with psychotic features F33.3 and PTSD ( post-traumatic stress disorder) F43.10 [facility] [address] [address]- 2432 May, Anxiety F41.9 [facility] [address] [address]- 5029 May, PTSD (post-traumatic stress disorder) F43.10 and Borderline personality disorder F60.3 [facility] [address] [address]- 8404 Apr, [facility] [id number] [place] [address] [id number] March, Dental examination Z01.20 and Dental caries K02.9 [facility] [id number] [place] [address] 61706- 5963 March, Dental examination Z01.20 [facility] [id number] [place] [address] 37489- 0130 March, Tooth abscess K04.7 and Tooth pain K08.89 [facility] [address] 53784- 9876 March, Borderline personality disorder F60.3 [facility] [id number] [place] [address] 67541- 6556 March, ADHD (attention deficit hyperactivity disorder) F90.9 ; Night terror F51.4 ; Bulimia F50.2 and Anxiety F41.9 [facility] [id number] [place] [address] 30210- 7871 Feb, Borderline personality disorder F60.3 ; ADHD (attention deficit hyperactivity disorder) F90.9 ; Anxiety F41.9 ; Bulimia F50.2 ; Obsessive-compulsive disorder, unspecified type F42.9 and Night terror F51.4 [facility] [id number] [place] [address] 28161- 5205 Feb, [facility] [id number] [place] [address] 19418- 1921 Feb, [facility] [id number] [place] [address] 73694- 0374 Jul, [facility] [id number] [place] [address] 33345- 5109 Jul, [facility] [id number] [place] [address] 65298- 1876 Jul, [facility] [id number] [place] [address] 56067- 0314 Jul, [facility] [id number] [place] [address] 29890- 5666 Jun, [facility] [place] [facility] [address] [id number] [place] [address]- 8914 Jun, [facility] [place] [facility] [address] [id number] [place] [address]- 7182 Jun, [facility] [place] [facility] [address] [id number] [place] [address]- 5493 Jun, [facility] [place] [facility] [address] [id number] [place] [address]- 3525 Apr, [facility] [place] [facility] [address] [id number] [place] [address]- 6486 Apr, [facility] [place] [facility] [address] [id number] [place] [address]- 2210 March, [facility] [place] [facility] [address] [id number] [place] [address]- 1634 March, [facility] [place] [facility] [address] [id number] [place] [address]- 9275 Jan, [facility] [place] [facility] [address] [id number] [place] [address]- 1189 Jan, [facility] [place] [facility] [address] [id number] [place] [address]- 0633 Jan, [facility] [place] [facility] [address] [id number] [place] [address]- 8469 Jan, [facility] [place] [facility] [address] [id number] [place] [address]- 8149 Jan, [facility] [place] [facility] [address] [id number] [place] [address]- 6013 Dec, [facility] [place] [facility] [address] [id number] [place] [address]- 5076 Dec, [facility] [place] [facility] [address] [id number] [place] 1614 Oct, [facility] [place] [facility] [address] [id number] [place] [address]- 8254 16 Oct, 2013 [facility] [address] [id number] [place] [address]- 5643 Oct, [facility] [place] [facility] [address] [id number] [place] [address]- 5919 Oct, [facility] [address] [id number] [place] [address]- 4358 Sep, [facility] [place] [facility] [address] [id number] [place] [address]- 4443 Sep, [facility] [place] [facility] [address] [id number] [place] [address]- 8032 Sep, [facility] [place] [facility] [address] [id number] [place] 2651 Aug, [facility] [address] [id number] [place] [address]- 6513 Aug, [facility] [address] [id number] [place] 0826 Aug, [facility] [place] [facility] [address] [id number] [place] [address]- 2904 Aug, [facility] [address] [facility] [id number] [place] [address]- 3627 Aug, [facility] [place] [facility] [address] [id number] [place] [address]- 4561 Aug, [facility] [place] [facility] [address] [id number] [place] [address]- 3181 Aug, [facility] [place] [facility] [address] [id number] [place] [address]- 5445 Jul, [facility] [place] [facility] [address] [id number] [place] [address]- 2541 Jun, [facility] [place] [facility] [address] [id number] [place] [address]- 1375 Jun, [facility] [place] [facility] [address] [id number] [place] [address]- 9137 Jun, [facility] [address] [id number] [place] [address]- 0261 Jun, [facility] [place] [facility] [address] [id number] [place] [address]- 6607 Jun, [facility] [place] [facility] [address] [id number] [place] [address] 2544 Jun, [facility] [address] [id number] [place] [address]- 9897 May, [facility] [place] [facility] [address] [id number] [place] [address]- 4988 May, [facility] [address] [id number] [place] [address]- 0297 May, [facility] [address] [id number] [place] [address]- 0195 May, [facility] [place] [facility] [address] [id number] [place] [address]- 7746 March, [facility] [address] [id number] [place] [address]- 8512 March, [facility] [place] [facility] [address] [id number] [place] [address]- 1844 March, [facility] [place] [facility] [address] [id number] [place] [address]- 0211 Feb, [facility] [place] [facility] [address] [id number] [place] [address]- 5863 Feb, [facility] [place] [facility] [address] [id number] [place] [address]- 6129 Feb, [facility] [place] [facility] [address] [id number] [place] [address]- 5396 Feb, [facility] [place] [facility] [address] [id number] [place] [address]- 8338 Jan, [facility] [address] [id number] [place] [address]- 9306 Jan, [facility] [address] [id number] [place] [address]- 2466 Jan, [facility] [address] [id number] [place] [address]- 0836 Dec, [facility] [address] [id number] [place] [address]- 2838 14 Dec, 2012 [facility] [address] [id number] [place] [address]- 3576 Dec, [facility] [address] [id number] [place] [address]- 1316 05 Dec, 2012 [facility] [address] [id number] [place] [address]- 9181 04 Dec, 2012 [facility] [address] [id number] [place] [address]- 7669 Nov, [facility] [address] [id number] [place] [address]- 9930 Nov, [facility] [address] [id number] [place] [address]- 3339 Nov, [facility] [address] [id number] [place] [address]- 3638 Nov, [facility] [address] [id number] [place] [address] 2545 Oct, [facility] [address] [id number] [place] [address]- 3287 Oct, [facility] [address] [id number] [place] 3671 Oct, [facility] [address] [id number] [place] [address]- 0253 Oct, [facility] [place] [facility] [address] [id number] [place] [address]- 9479 Oct, [facility] [place] [facility] [address] [id number] [place] [address]- 7616 Oct, [facility] [place] [facility] [address] [id number] [place] [address]- 9196 Oct, [facility] [place] [facility] [address] [id number] [place] [address]- 5276 Oct, [facility] [place] [facility] [address] [id number] [place] [address]- 5190 Oct, [facility] [place] [facility] [address] [id number] [place] [address]- 5176 Oct, [facility] [place] [facility] [address] [id number] [place] [address]- 2922 Oct, [facility] [place] [facility] [address] [id number] [place] [address]- 9529 Oct, [facility] [place] [facility] [address] [id number] [place] [address]- 8505 Oct, [facility] [place] [facility] [address] [id number] [place] [address]- 8449 Sep, [facility] [place] [facility] [address] [id number] [place] [address]- 6701 Sep, [facility] [place] [facility] [address] [id number] [place] [address]- 7168 Sep, [facility] [place] [facility] [address] [id number] [place] [address]- 2607 Sep, [facility] [place] [facility] [address] [id number] [place] [address]- 2956 Sep, [facility] [place] [facility] [address] [id number] [place] [address]- 8564 Sep, [facility] [place] [facility] [address] [id number] [address]- 0902 Sep, [facility] [place] [facility] [address] [id number] [place] [address]- 6475 Sep, [facility] [place] [facility] [address] [id number] [place] 7254 Sep, [facility] [place] [facility] [address] [facility] [id number] [place] 3834 Sep, [facility] [place] [facility] [address] [id number] [place] [address]- 8523 Sep, [facility] [place] [facility] [address] [id number] [place] [address]- 7082 Sep, [facility] [place] [facility] [address] [id number] [place] [address]- 2716 Aug, [facility] [place] [facility] [address] [id number] [place] [address]- 3974 Aug, [facility] [place] [facility] [address] [id number] [address]- 4082 Aug, [facility] [place] [facility] [address] [id number] [place] [address]- 4215 Aug, [facility] [place] [facility] [address] [id number] [place] [address]- 3249 Aug, [facility] [place] [facility] [address] [id number] [place] [address]- 1147 Aug, [facility] [place] [facility] [address] [id number] [address]- 1482 Aug, [facility] [place] [facility] [address] [id number] [place] [address]- 2330 Aug, [facility] [place] [facility] [address] [facility] [id number] [place] [address]- 9438 Aug, [facility] [place] [facility] [address] [facility] [id number] [place] [address]- 6502 Aug, [facility] [place] [facility] [address] [id number] [place] [address]- 2601 Aug, [facility] [address] [id number] [place] [address]- 1726 Aug, [facility] [place] [facility] [address] [id number] [place] [address]- 8066 28 Jul, 2012 [facility] [address] [id number] [place] [address]- 7807 27 Jul, 2011 [facility] [place] [facility] [address] [id number] [place] [address]- 8520 21 Jul, 2011 [facility] [address] [id number] [place] [address]- 4503 10 Jul, 2012 [facility] [address] [id number] [place] [address]- 4512 05 Jul, 2012 [facility] [place] [facility] [address] [id number] [place] [address]- 4507 Jul, [facility] [address] [id number] [place] [address]- 4764 Jun, [facility] [place] [facility] [address] [id number] [place] [address]- 4434 Jun, [facility] [address] [id number] [place] [address]- 6381 Jun, [facility] [place] [facility] [address] [id number] [place] [address]- 1784 May, [facility] [place] [facility] [address] [id number] [place] [address]- 6043 May, [facility] [place] [facility] [address] [id number] [place] [address]- 7246 14 May, 2012 [facility] [place] [facility] [address] [id number] [place] [address]- 9849 May, [facility] [place] [facility] [address] [id number] [place] [address]- 9835 May, [facility] [place] [facility] [address] [id number] [place] [address] 05 May, 2012 [facility] [place] [facility] [address] [id number] [place] [address] 30 Apr, 2012 [facility] [place] [facility] [address] [id number] [place] [address] 23 Feb, 2012 [facility] [place] [facility] [address] [id number] [place] [address] 18 Feb, 2012 [facility] [place] [facility] [address] [id number] [place] [address] 11 Feb, 2012 [facility] [place] [facility] [address] [id number] [place] [address] 10 Feb, 2012 [facility] [place] [facility] [address] [id number] [place] [address] 16 Jan, 2012 [facility] [place] [facility] [address] [id number] [place] [address] 12 Jan, 2012 [facility] [place] [facility] [address] [id number] [place] [address] 29 Dec, 2011 [facility] [place] [facility] [address] [id number] [place] [address]- [address] 28 Dec, 2011 [facility] [place] [facility] [address] [id number] [place] [address] Dec, [facility] [place] [facility] [address] [id number] [place] [address] 14 Dec, 2011 [facility] [place] [facility] [address] [id number] [place] [address] 1476 14 Dec, 2011 [facility] [place] [facility] [address] [id number] [place] [address]- [address]36 13 Dec, 2011 [facility] [place] [facility] [address] [facility] [id number] [place] [address] 09 Dec, 2011 [facility] [place] [facility] [address] [id number] [place] [address] 2546 07 Dec, 2011 [facility] [address] [id number] [place] [address] Dec, [facility] [address] [id number] [place] [address] Nov, [facility] [address] [id number] [place] [address] Nov, [facility] [address] [id number] [place] [address] Nov, [facility] [address] [id number] [place] [address] Nov, [facility] [address] [id number] [place] [address]- [address] Nov, [facility] [address] [id number] [place] [address] Nov, [facility] [address] [id number] [place] [address] Nov, [facility] [address] [id number] [place] [address] Nov, [facility] [address] [id number] [place] [address] Nov, [facility] [address] [id number] [place] [address] Oct, [facility] [address] [id number] [place] [address] Oct, [facility] [address] [id number] [place] [address] Oct, [facility] [address] [id number] [place] [address] Oct, [facility] [address] [id number] [place] [address] Oct, [facility] [place] [facility] [address] [id number] [place] [address] Oct, [facility] [place] [facility] [address] [id number] [place] [address] 02 Sep, 2011 [facility] [place] [facility] [address] [id number] [place] [address]- [address] 19 Aug, 2011 [facility] [place] [facility] [address] [id number] [place] [address] Jul, [facility] [place] [facility] [address] [id number] [place] [address]447 17 Nov, 2010 [facility] [place] [facility] [address] [id number] [place] [address] Nov, [facility] [place] [facility] [address] [id number] [place] [address] Oct, [facility] [place] [facility] [address] [id number] [place] [address] Sep, [facility] [place] [facility] [address] [id number] [place] [address] Sep, [facility] [place] [facility] [address] [facility] [id number] [address] 18 Aug, 2010 [facility] [place] [facility] [address] [id number] [place] [address]- [address] 14 Aug, 2010 [facility] [place] [facility] [address] [id number] [place] [address] 14 Aug, 2010 [facility] [place] [facility] [address] [id number] [place] [address] 13 Feb, 2010 [facility] [place] [facility] [address] [id number] [address] 10 Dec, 2009 [facility] [place] [facility] [address] [id number] [place] [address] 30 Oct, 2009 [facility] [place] [facility] [address] [id number] [place] [address] Oct, [facility] [address] [id number] [address] Oct, [facility] [address] [id number] [address] Sep, [facility] [address] [id number] [id number] Sep, [facility] [address] [id number] [address] Sep, [facility] [address] [id number] [address] Aug, [facility] [address] [id number] [address] Aug, IMMUNIZATIONS No Known Immunizations SOCIAL HISTORY Never Assessed REASON FOR VISIT f/u PLAN OF CARE Activity Details Follow Up 2 Weeks Reason:anxiety, depression, psychotic symptoms VITAL SIGNS MEDICATIONS Unknown Medications RESULTS No Results PROCEDURES Procedure Date Ordered Result Body Site Psychotherapy, patient &/family, 45 minutes, established patient Jun 13, 2017 INSTRUCTIONS MEDICATIONS ADMINISTERED No Known Medications [...] mental health issues x2 Ward Unit in [place] 2016 & 02/2017 Hospitalization History Surgery(s)/Childbirth(s)
--- OUTSIDE RECORDS SUMMARY | 2018-08-03 08:13 | XMS REPORT ---
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 Maker Helper Name Role Phone RACHAEL CHEATHAM Unavailable PROBLEMS Type Condition ICD9-CM Code [id number] Code Onset Dates Condition Status SNOMED Code Problem Dental abscess K04.7 Active 794921337 Problem PTSD (post-traumatic stress disorder) F43.10 Active 43866373 Problem Dental caries K02.9 Active 05963475 Problem Borderline personality disorder F60.3 Active 09348699 Problem Night terror F51.4 Active 76195972 Problem Anxiety F41.9 Active 70746261 Problem Sciatica, unspecified side M54.30 Active 45245824 Problem Schizo affective schizophrenia F25.0 Active 584172992 Problem Mood disorder F39 Active 51644114 Problem Severe episode of recurrent major depressive disorder, with psychotic features F33.3 Active 58330016 Problem Bipolar 1 disorder F31.9 Active 697758115 Problem Adjustment disorder with mixed anxiety and depressed mood F43.23 Active 27453628 ALLERGIES Substance Reaction Event Type Date Status Pseudoephedrine HCl ER Unknown Drug Allergy May, Active Phenytoin Unknown Drug Allergy May, Active Penicillamine Unknown Drug Allergy May, Active ENCOUNTERS Encounter Location Date Diagnosis [facility] [address] [id number] [address] Feb, [facility] [address] [address] Feb, [facility] [address] [id number], [place] [address] Jan, Schizo affective schizophrenia F25.0 ; Adjustment disorder with mixed anxiety and depressed mood F43.23 ; Night terror F51.4 ; Anxiety F41.9 and Borderline personality disorder F60.3 [facility] [id number] [place] [address] 98533- 9366 Jan, Mood disorder F39 ; PTSD (post-traumatic stress disorder) F43.10 ; Borderline personality disorder F60.3 and High risk medication use Z79.899 [facility] [id number] [place] [address] 41028- 8458 Dec, Anxiety F41.9 and Borderline personality disorder F60.3 [facility] [address] [address]- [address] Dec, [facility] [address] 15140- 0166 Dec, Anxiety F41.9 and Borderline personality disorder F60.3 [place] [address] [address]- 20[address] Dec, [facility] [address] 727874- 5609 Dec, [facility] [id number] [place] [address] 19242- 3155 Nov, Acute non-recurrent maxillary sinusitis J01.00 ; Mood disorder F39 and Sciatica, unspecified side M54.30 [facility] [id number] [place] [address] 86218- 7277 Nov, Mood disorder F39 ; PTSD (post-traumatic stress disorder) F43.10 and Borderline personality disorder F60.3 [facility] [id number] [place] [address] 95305- 7105 Nov, Anxiety F41.9 and Borderline personality disorder F60.3 [facility] [address] 92302- 5758 Nov, [facility] [id number] [place] [address] 65422- 5347 Nov, Anxiety F41.9 and Sciatica, unspecified side M54.30 [facility] [address] [place] [address] 8123 Oct, Anxiety F41.9 [facility] [id number] [place] [address] 87593- 5806 Oct, Mood disorder F39 ; PTSD (post-traumatic stress disorder) F43.10 ; Borderline personality disorder F60.3 and High risk medication use Z79.899 [facility] [address] [place] [address] [id number] Oct, 2017 Dental caries K02.9 and Dental examination Z01.20 [facility] [id number] [place] [address] 02193- 1453 Sep, Dysuria R30.0 and Abdominal pain, right lower quadrant R10.31 [facility] [id number] [place] [address] 40649- 0051 Aug, Mood disorder F39 ; PTSD (post-traumatic stress disorder) F43.10 and Borderline personality disorder F60.3 [facility] [id number] [place] [address] 74721- 1837 Aug, [facility] [id number] [place] [address] 11325- 3834 Aug, [facility] [id number] [place] [address] 02737- 1936 Aug, Severe episode of recurrent major depressive disorder, with psychotic features F33.3 ; PTSD (post-traumatic stress disorder) F43.10 ; Adjustment disorder with mixed anxiety and depressed mood F43.23 and Borderline personality disorder F60.3 [facility] [address] [place] [address] 41012- 1298 Aug, Mood disorder F39 ; PTSD (post-traumatic stress disorder) F43.10 and Borderline personality disorder F60.3 [facility] [address] [place] [address] 35948- 6404 Aug, [facility] [id number] [place] [address] 99818- 1921 Aug, Bipolar 1 disorder F31.9 and Schizo affective schizophrenia F25.0 [facility] [id number], [place] [address] 1120 Aug, Mood disorder F39 [facility] [id number], [place] [address] 8656 Aug, Bipolar 1 disorder F31.9 and Schizo affective schizophrenia F25.0 [facility] [id number] [place] [address] 02854- 4901 Aug, Bipolar 1 disorder F31.9 and Schizo affective schizophrenia F25.0 [facility] [id number] [place] [address] 47247- 6860 Aug, [facility] [id number] [place] [address] 54604- 8317 Aug, PTSD (post-traumatic stress disorder) F43.10 and Borderline personality disorder F60.3 [facility] [id number] [address] 6048 Aug, [facility] [id number] [place] [address] 36451- 1376 Aug, Mood disorder F39 ; PTSD (post-traumatic stress disorder) F43.10 ; Borderline personality disorder F60.3 and Adjustment disorder with mixed anxiety and depressed mood F43.23 [facility] [address], [place] [address] 9700 Jul, [facility] [id number], [place] [address]- 2541 Jul, Mood disorder F39 ; PTSD (post-traumatic stress disorder) F43.10 and Borderline personality disorder F60.3 [facility] [id number] [address] [address] Jul, [facility] [id number], [place] [address] 4972 Jun, Anxiety F41.9 ; ADHD (attention deficit hyperactivity disorder) F90.9 ; Night terror F51.4 ; Bulimia F50.2 ; Severe episode of recurrent major depressive disorder, with psychotic features F33.3 and PTSD ( post-traumatic stress disorder) F43.10 [facility] [address], [place] [address]- 1276 Jun, Borderline personality disorder F60.3 ; Mood disorder F39 and PTSD (post-traumatic stress disorder) F43.10 [facility] [id number] [place] [address] 11839- 6871 Jun, Anxiety F41.9 [facility] [id number] [place] [address] 18183- 1355 Jun, Anxiety F41.9 ; ADHD (attention deficit hyperactivity disorder) F90.9 ; Night terror F51.4 ; Bulimia F50.2 ; Severe episode of recurrent major depressive disorder, with psychotic features F33.3 and PTSD ( post-traumatic stress disorder) F43.10 [facility] [address] [place] [address] 93181- 8912 Jun, ADHD (attention deficit hyperactivity disorder) F90.9 ; Night terror F51.4 ; Bulimia F50.2 ; Anxiety F41.9 ; Severe episode of recurrent major depressive disorder, with psychotic features F33.3 and PTSD ( post-traumatic stress disorder) F43.10 [facility] [address], [place] [address]- 3779 May, Anxiety F41.9 [place] [address] [place] [address] 70073- 7212 May, PTSD (post-traumatic stress disorder) F43.10 and Borderline personality disorder F60.3 [place] [address] [place] [address] 87494- 8868 Apr, [facility] [id number] [id number] March, Dental examination Z01.20 and Dental caries K02.9 [facility] [id number] [place] [address] 71645- 1032 March, Dental examination Z01.20 [facility] [id number] [place] [address] 87294- 0760 March, Tooth abscess K04.7 and Tooth pain K08.89 [facility] [id number] [place] [address] 74452- 8053 March, Borderline personality disorder F60.3 [facility] [id number] [place] [address] 90302- 2359 March, ADHD (attention deficit hyperactivity disorder) F90.9 ; Night terror F51.4 ; Bulimia F50.2 and Anxiety F41.9 [place] [id number] [place] [address] 51855- 2849 Feb, Borderline personality disorder F60.3 ; ADHD (attention deficit hyperactivity disorder) F90.9 ; Anxiety F41.9 ; Bulimia F50.2 ; Obsessive-compulsive disorder, unspecified type F42.9 and Night terror F51.4 [facility] [id number] [place] [address] 27286- 9640 Feb, [facility] [id number] [place] [address] 78826- 9291 Feb, [facility] [id number] [place] [address] 01307- 9101 Jul, [facility] [id number] [place] [address] 97287- 7917 Jul, [facility] [id number] [place] [address] 21453- 9471 Jul, [facility] [id number] [place] [address] 12283- 3754 Jul, [facility] [id number] [place] [address] 45773- 0379 Jun, [facility] [place] [facility] [address] [id number] [place] [address]- 6990 Jun, [facility] [place] [facility] [address] [id number] [place] [address]- 7914 Jun, [facility] [place] [facility] [address] [id number] [place] [address]- 1593 Jun, [facility] [place] [facility] [address] [id number] [place] [address]- 9678 Apr, [facility] [place] [facility] [address] [id number] [place] [address]- 5185 Apr, [facility] [place] [facility] [address] [id number] [place] [address]- 4742 March, [facility] [place] [facility] [address] [id number] [place] [address]- 5396 March, [facility] [place] [facility] [address] [id number] [place] [address]- 9891 Jan, [facility] [place] [facility] [address] [id number] [place] [address]- 8055 Jan, [facility] [place] [facility] [address] [id number] [place] [address]- 9315 Jan, [facility] [place] [facility] [address] [id number] [place] [address]- 4474 Jan, [facility] [place] [facility] [address] [id number] [place] [address]- 1846 Jan, [facility] [place] [facility] [address] [id number] [place] [address]- 2108 Dec, [facility] [place] [facility] [address] [id number] [place] [address]- 3457 Dec, [facility] [place] [facility] [address] [id number] [place] 2303 Oct, [facility] [place] [facility] [address] [id number] [place] [address]- 2546 Oct, [facility] [place] [facility] [address] [id number] [place] [address]- 9221 Oct, [facility] [place] [facility] [address] [id number] [place] [address]- 8730 Oct, [facility] [place] [facility] [address] [id number] [place] [address]- 8598 Sep, [facility] [place] [facility] [address] [id number] [place] [address]- 5766 Sep, [facility] [place] [facility] [address] [id number] [place] [address]- 2578 Sep, [facility] [place] [facility] [address] [id number] [place] [address]- 4725 Aug, [facility] [place] [facility] [address] [id number] [place] [address]- 3083 Aug, [facility] [place] [facility] [address] [id number] [place] [address]- 5939 Aug, [facility] [place] [facility] [address] [id number] [place] 7655 Aug, [facility] [place] [facility] [address] [id number] [place] [address]- 7664 Aug, [facility] [place] [facility] [address] [id number], [place] [address]- 6664 Aug, [facility] [place] [facility] [address] [id number], [place] [address]- 4166 Aug, [facility] [place] [facility] [address] [id number] [place] [address]- 4422 Jul, [facility] [place] [facility] [address] [id number] [place] [address]- 6697 Jun, [facility] [place] [facility] [address] [id number] [place] [address]- 6701 Jun, [facility] [place] [facility] [address] [id number] [place] [address]- 7655 Jun, [facility] [address] [id number] [place] [address]- 9814 Jun, [facility] [address] [id number] [place] [address]- 6271 Jun, [facility] [address] [id number] [place] [address]- 8549 Jun, [facility] [address] [id number] [place] [address]- 3479 May, [facility] [address] [id number] [place] [address]- 9952 May, [facility] [address] [id number] [place] [address]- 5726 May, [facility] [address] [id number] [place] [address]- 8142 May, [facility] [address] [id number] [place] [address]- 8703 March, [facility] [address] [id number] [place] [address]- 6464 March, [facility] [address] [id number] [place] [address]- 2539 March, [facility] [address] [id number] [place] [address]- 7020 Feb, [facility] [address] [id number] [place] [address]- 8380 Feb, [facility] [address] [id number] [place] [address]- 4456 Feb, [facility] [address] [id number] [place] [address]- 2546 Feb, [facility] [address] [id number] [place] [address]- 6071 Jan, [facility] [address] [id number] [place] [address]- 7734 Jan, [facility] [address] [id number] [place] [address]- 0066 Jan, [facility] [address] [id number] [place] [address]- 0711 Dec, [facility] [place] [facility] [address] [id number] [place] [address]- 2175 Dec, [facility] [address] [id number] [place] [address]- 4516 Dec, [facility] [address] [id number] [place] [address]- 0556 Dec, [facility] [address] [id number] [place] [address]- 9386 Dec, [facility] [address] [id number] [place] [address]- 5650 Nov, [facility] [address] [id number] [place] [address]- 0546 Nov, [facility] [address] [id number] [place] [address]- 0016 Nov, [facility] [address] [id number] [place] [address]- 0848 Nov, [facility] [place] [facility] [address] [id number] [place] [address]- 7918 Oct, [facility] [place] [facility] [address] [id number] [place] [address]- 3066 Oct, [facility] [place] [facility] [address] [id number] [place] [address]- 7776 Oct, [facility] [place] [facility] [address] [id number] [place] [address]- 0936 Oct, [facility] [place] [facility] [address] [id number] [place] [address]- 5246 Oct, [facility] [place] [facility] [address] [id number] [place] [address]- 6866 Oct, [facility] [place] [facility] [address] [id number] [place] [address]- 0836 Oct, [facility] [place] [facility] [address] [id number] [place] [address]- 0786 Oct, [facility] [place] [facility] [address] [id number] [place] [address] 2546 Oct, [facility] [place] [facility] [address] [id number] [place] [address]- 5756 Oct, [facility] [place] [facility] [address] [id number] [place] [address]- 9857 Oct, [facility] [place] [facility] [address] [id number] [place] [address]- 3089 Oct, [facility] [place] [facility] [address] [id number] [place] [address]- 6947 Oct, [facility] [place] [facility] [address] [id number] [place] [address]- 4761 Sep, [facility] [place] [facility] [address] [id number] [place] [address]- 1999 Sep, [facility] [place] [facility] [address] [id number] [place] [address] 2546 Sep, [facility] [place] [facility] [address] [id number] [place] [address]- 2543 Sep, [facility] [place] [facility] [address] [id number] [place] [address]- 5896 Sep, [facility] [place] [facility] [address] [id number] [place] [address]- 3486 Sep, [facility] [place] [facility] [address] [id number] [place] [address]- 6219 Sep, [facility] [place] [facility] [address] [id number] [place] [address]- 1660 Sep, [facility] [place] [facility] [address] [id number] [place] [address]- 7260 Sep, [facility] [place] [facility] [address] [id number] [place] [address]- 3026 Sep, [facility] [place] [facility] [address] [id number] [place] [address]- 7639 Sep, [facility] [place] [facility] [address] [id number] [place] [address]- 2386 Sep, [facility] [place] [facility] [address] [id number] [place] [address]- 9745 Aug, [facility] [place] [facility] [address] [id number] [place] [address]- 4118 Aug, [facility] [place] [facility] [address] [id number] [place] [address]- 1678 Aug, [facility] [place] [facility] [address] [id number] [place] [address]- 2266 Aug, [facility] [place] [facility] [address] [id number] [place] [address]- 9474 Aug, [facility] [place] [facility] [address] [id number] [place] [address]- 0887 Aug, [facility] [place] [facility] [address] [id number], [place] [address]- 3446 Aug, [facility] [place] [facility] [address] [id number] [place] [address]- 8350 Aug, [facility] [place] [facility] [address] [id number] [place] [address]- 1052 Aug, [facility] [place] [facility] [address] [id number] 1623 Aug, [facility] [place] [facility] [address] [id number], [place] [address]- 3703 Aug, [facility] [place] [facility] [address] [id number] [place] [address]- 8057 Aug, [facility] [place] [facility] [address] [id number] [place] [address]- 2866 28 Jul, 2012 [facility] [place] [facility] [address] [id number] [place] [address]- 4146 27 Jul, 2012 [facility] [place] [facility] [address] [id number] [place] [address] 21 Jul, 2012 [facility] [place] [facility] [address] [id number] [place] [address] 10 Jul, 2012 [facility] [place] [facility] [address] [id number] [place] [address] 05 Jul, 2012 [facility] [place] [facility] [address] [id number] [place] [address] Jul, [facility] [place] [facility] [address] [id number] [place] [address] Jun, [facility] [place] [facility] [address] [id number] [place] [address] Jun, [facility] [place] [facility] [address] [id number] [place] [address] Jun, [facility] [place] [facility] [address] [id number] [place] [address] May, [facility] [place] [facility] [address] [id number] [place] [address] May, [facility] [place] [facility] [address] [id number] [place] [address] May, [facility] [place] [facility] [address] [id number] [place] [address] May, [facility] [place] [facility] [address] [id number] [place] [address] May, [facility] [place] [facility] [address] [id number] [place] [address] 05 May, 2012 [facility] [address] [id number] [place] [address] 30 Apr, 2012 [facility] [place] [facility] [address] [id number] [place] [address] 23 Feb, 2012 [facility] [address] [id number] [place] [address] 18 Feb, 2012 [facility] [place] [facility] [address] [id number] [place] [address] 11 Feb, 2012 [facility] [address] [id number] [place] [address] 10 Feb, 2012 [facility] [address] [id number] [place] [address] 16 Jan, 2012 [facility] [place] [facility] [id number] [place] [address] 12 Jan, 2012 [facility] [address] [id number] [place] [address] 29 Dec, 2011 [facility] [id number] [place] [address] 28 Dec, 2011 [facility] [id number] [place] [address] 21 Dec, 2011 [facility] [place] [facility] [id number] [place] [address] 14 Dec, 2011 [facility] [place] [facility] [address] [facility] [id number] [place] [address] 14 Dec, 2011 [facility] [place] [facility] [address] [facility] [id number] [place] [address] 13 Dec, 2011 [facility] [place] [facility] [address] [facility] [id number] [place] [address] 09 Dec, 2011 [facility] [place] [facility] [id number] [place] [address] 07 Dec, 2011 [facility] [address] [id number] [place] [address] Dec, [facility] [address] [id number] [place] [address] Nov, [facility] [address] [id number] [place] [address] Nov, [facility] [address] [id number] [place] [address] Nov, [facility] [address] [id number] [place] [address] Nov, [facility] [address] [id number] [place] [address] Nov, [facility] [address] [id number] [place] [address] Nov, [facility] [address] [id number] [place] [address] Nov, [facility] [address] [id number] [place] [address] Nov, [facility] [address] [id number] [place] [address] Nov, [facility] [address] [id number], [place] [address] Oct, [facility] [place] [facility] [address] [address] [id number] [place] [address] Oct, [facility] [place] [facility] [address] [id number] [place] [address] Oct, [facility] [place] [facility] [address] [id number] [place] [address] Oct, [facility] [place] [facility] [address] [id number] [place] [address] Oct, [facility] [place] [facility] [address] [id number] [place] [address] Oct, [facility] [address] [id number] [place] [address] 02 Sep, 2011 [facility] [place] [facility] [address] [id number] [place] [address] 19 Aug, 2011 [facility] [place] [facility] [address] [id number] [place] [address] Jul, [facility] [place] [facility] [address] [id number] [place] [address] 17 Nov, 2010 [facility] [address] [id number] [place] [address] Nov, [facility] [place] [facility] [address] [id number] [place] [address] Oct, [facility] [place] [facility] [address] [id number] [place] [address] Sep, [facility] [place] [facility] [address] [id number] [place] [address] Sep, [facility] [place] [facility] [address] [id number] [place] [address] 18 Aug, 2010 [facility] [place] [facility] [address] [id number] [place] [address] 14 Aug, 2010 [facility] [place] [facility] [address] [id number] [place] [address] 14 Aug, 2010 [facility] [place] [facility] [address] [id number] [place] [address] 13 Feb, 2010 [facility] [place] [facility] [address] [id number] [place] [address] 10 Dec, 2009 [facility] [place] [facility] [address] [id number] [place] [address] 30 Oct, 2009 [facility] [place] [facility] [address] [id number] [place] [address] Oct, [facility] [address] [facility] [id number], [place] [address] Oct, [facility] [address] [id number], [place] [address] Sep, [facility] [address] [facility] [id number], [place] [address] Sep, [facility] [address] [id number], [place] [address] Sep, [facility] [address] [facility] [id number], [place] [address] Aug, [facility] [address] [id number], [place] [address] Aug, IMMUNIZATIONS No Known Immunizations SOCIAL HISTORY Never Assessed REASON FOR VISIT Establish Care. Needing Psych medications refilled. -CLogiudiciRN PLAN OF CARE Activity Details Follow Up 4 Weeks Reason:ptsd VITAL SIGNS Height 63 in 2017-05-18 Weight 201.2 lbs 2017-05-18 Temperature 98.4 degrees Fahrenheit 2017-05-18 Heart Rate 80 bpm 2017-05-18 Respiratory Rate 18 2017-05-18 BMI 35.64 kg/m2 2017-05-18 Blood pressure systolic 136 mmHg 2017-05-18 Blood pressure diastolic 84 mmHg 2017-05-18 MEDICATIONS Medication Instructions Dosage Frequency Start Date End Date Duration Status [place] Carbonate 300 MG Orally 2 times a day 1 capsule 12h 30 Active Minipress 1 MG Orally at bedtime 3 capsules 30 Active Desvenlafaxine Succinate ER 50 mg Orally Once a day in am 1 tablet 30 Active Gabapentin 600 MG Orally Three times a day 1 tablet 8h Active Quetiapine Fumarate 200 MG Orally Once a day 1 tablet at bedtime 24h 30 Active RESULTS No Results PROCEDURES No Known [...] EGD Hospitalization History mental health issues x2 [facility] in [place] 2016 & 02/2017 Hospitalization History Surgery(s)/Childbirth(s)
--- OUTSIDE RECORDS SUMMARY | 2018-08-03 08:14 | XMS REPORT ---
Author Author BRAYAN RIDLEY [facility] Address Unknown Care Team Providers Care Dialysis Patient Care Technician Name Role Phone BRAYAN RIDLEY Unavailable PROBLEMS Type Condition ICD9-CM Code MHK32-DN Code Onset Dates Condition Status SNOMED Code Problem Dental abscess K04.7 Active 342219335 Problem PTSD (post-traumatic stress disorder) F43.10 Active 91849481 Problem Dental caries K02.9 Active 29766343 Problem Borderline personality disorder F60.3 Active 20749826 Problem Night terror F51.4 Active 89230908 Problem Anxiety F41.9 Active 78298307 Problem Sciatica, unspecified side M54.30 Active 86564548 Problem Schizo affective schizophrenia F25.0 Active 316288829 Problem Mood disorder F39 Active 73113755 Problem Severe episode of recurrent major depressive disorder, with psychotic features F33.3 Active 38541680 Problem Bipolar 1 disorder F31.9 Active 895548722 Problem Adjustment disorder with mixed anxiety and depressed mood F43.23 Active 10706640 ALLERGIES Substance Reaction Event Type Date Status Penicillins Unknown Non Drug Allergy March, Active ENCOUNTERS Encounter Location Date Diagnosis [facility] [address] [address] Feb, [facility] [id number] [place] [address] 54277- 4532 Feb, [facility] [id number] [place] [address] 98657- 1502 Jan, Schizo affective schizophrenia F25.0 ; Adjustment disorder with mixed anxiety and depressed mood F43.23 ; Night terror F51.4 ; Anxiety F41.9 and Borderline personality disorder F60.3 [facility] [id number] [address] Jan, Mood disorder F39 ; PTSD (post-traumatic stress disorder) F43.10 ; Borderline personality disorder F60.3 and High risk medication use Z79.899 [facility] [id number] [place] [address] 41865- 8228 Dec, Anxiety F41.9 and Borderline personality disorder F60.3 [facility] [id number] [place] [address] 99739- 2282 Dec, [facility] [address] [address]- 7544 Dec, Anxiety F41.9 and Borderline personality disorder F60.3 [facility] [id number] [place] [address] 573379- 6435 Dec, [facility] [id number] [place] [address] 33688- 3194 Dec, [facility] [address] [address]- [address]01 Nov, Acute non-recurrent maxillary sinusitis J01.00 ; Mood disorder F39 and Sciatica, unspecified side M54.30 [facility] [id number] [place] [address] 19020- 1526 Nov, Mood disorder F39 ; PTSD (post-traumatic stress disorder) F43.10 and Borderline personality disorder F60.3 [facility] [id number] [place] [address] 04266- 9759 Nov, Anxiety F41.9 and Borderline personality disorder F60.3 [facility] [id number] [place] [address] 32106- 3156 Nov, [facility] [id number] [place] [address] 27836- 5097 Nov, Anxiety F41.9 and Sciatica, unspecified side M54.30 [facility] [id number] [place] [address] 01734- 6185 Oct, Anxiety F41.9 [facility] [id number] [place] [address] 68678- 7374 Oct, Mood disorder F39 ; PTSD (post-traumatic stress disorder) F43.10 ; Borderline personality disorder F60.3 and High risk medication use Z79.899 [facility] [address] [id number] 11 Oct, 2017 Dental caries K02.9 and Dental examination Z01.20 [facility] [id number] [place] [address] 24400- 5918 Sep, Dysuria R30.0 and Abdominal pain, right lower quadrant R10.31 [place] [id number] [place] [address] 78380- 9974 Aug, Mood disorder F39 ; PTSD (post-traumatic stress disorder) F43.10 and Borderline personality disorder F60.3 [facility] [id number] [place] [address] 20601- 3925 Aug, [facility] [id number] [place] [address] 03151- 2747 Aug, [facility] [id number] [place] [address] 87151- 3491 Aug, Severe episode of recurrent major depressive disorder, with psychotic features F33.3 ; PTSD (post-traumatic stress disorder) F43.10 ; Adjustment disorder with mixed anxiety and depressed mood F43.23 and Borderline personality disorder F60.3 [facility] [id number] [place] [address] 72751- 9969 Aug, Mood disorder F39 ; PTSD (post-traumatic stress disorder) F43.10 and Borderline personality disorder F60.3 [facility] [id number] [place] [address] 57147- 6824 Aug, [facility] [id number] [place] [address] 71437- 9873 Aug, Bipolar 1 disorder F31.9 and Schizo affective schizophrenia F25.0 [facility] [id number] [address] 2400 Aug, Mood disorder F39 [facility] [id number] [place] [address] 22485- 4418 Aug, Bipolar 1 disorder F31.9 and Schizo affective schizophrenia F25.0 [facility] [id number] [place] [address] 11838- 1976 Aug, Bipolar 1 disorder F31.9 and Schizo affective schizophrenia F25.0 [facility] [id number] [place] [address] 74039- 3550 Aug, [place] [id number] [place] [address] 83316- 8430 Aug, PTSD (post-traumatic stress disorder) F43.10 and Borderline personality disorder F60.3 [facility] [facility] [id number] [place] [address] 06440- 0112 Aug, [facility] [facility] [id number] [place] [address] 16954- 9218 Aug, Mood disorder F39 ; PTSD (post-traumatic stress disorder) F43.10 ; Borderline personality disorder F60.3 and Adjustment disorder with mixed anxiety and depressed mood F43.23 [facility] [facility] [address], [place] [address] 6797 Jul, [facility] [facility] [id number] [place] [address] 39891- 4316 Jul, Mood disorder F39 ; PTSD (post-traumatic stress disorder) F43.10 and Borderline personality disorder F60.3 [place] [id number] [place] [address] 42346- 0999 Jul, [place] [facility] [id number] [place] [address] 60444- 0273 Jun, Anxiety F41.9 ; ADHD (attention deficit hyperactivity disorder) F90.9 ; Night terror F51.4 ; Bulimia F50.2 ; Severe episode of recurrent major depressive disorder, with psychotic features F33.3 and PTSD ( post-traumatic stress disorder) F43.10 [facility] [id number] [place] [address] 19315- 5106 Jun, Borderline personality disorder F60.3 ; Mood disorder F39 and PTSD (post-traumatic stress disorder) F43.10 [facility] [address] [address]- 9637 Jun, Anxiety F41.9 [facility] [id number] [place] [address] 84070- 0757 Jun, Anxiety F41.9 ; ADHD (attention deficit hyperactivity disorder) F90.9 ; Night terror F51.4 ; Bulimia F50.2 ; Severe episode of recurrent major depressive disorder, with psychotic features F33.3 and PTSD ( post-traumatic stress disorder) F43.10 [place] [id number] [place] [address] 28493- 1585 Jun, ADHD (attention deficit hyperactivity disorder) F90.9 ; Night terror F51.4 ; Bulimia F50.2 ; Anxiety F41.9 ; Severe episode of recurrent major depressive disorder, with psychotic features F33.3 and PTSD ( post-traumatic stress disorder) F43.10 [place] [address], [place] [address]- 3677 May, Anxiety F41.9 [facility] [id number] [place] [address] 00125- 9698 May, PTSD (post-traumatic stress disorder) F43.10 and Borderline personality disorder F60.3 [facility] [address] [address]- 7599 Apr, [facility] [id number] [place] [address] [id number] March, Dental examination Z01.20 and Dental caries K02.9 [facility] [id number] [place] [address] 68250- 3006 March, Dental examination Z01.20 [facility] [address] [place] [address] 31463- 7030 March, Tooth abscess K04.7 and Tooth pain K08.89 [facility] [id number] [place] [address] 52408- 4930 March, Borderline personality disorder F60.3 [facility] [id number] [place] [address] 36372- 0695 March, ADHD (attention deficit hyperactivity disorder) F90.9 ; Night terror F51.4 ; Bulimia F50.2 and Anxiety F41.9 [facility] [id number] [place] [address] 11405- 0421 Feb, Borderline personality disorder F60.3 ; ADHD (attention deficit hyperactivity disorder) F90.9 ; Anxiety F41.9 ; Bulimia F50.2 ; Obsessive-compulsive disorder, unspecified type F42.9 and Night terror F51.4 [facility] [id number] [place] [address] 10380- 9617 Feb, [facility] [id number] [place] [address] 32322- 4105 Feb, [facility] [id number] [place] [address] 39989- 1295 Jul, [facility] [id number] [place] [address] 50631- 7963 Jul, [facility] [id number] [place] [address] 00241- 3456 Jul, [facility] [id number] [place] [address] 56954- 9784 Jul, [facility] [id number] [place] [address] 73481- 6378 Jun, [facility] [id number] [place] [address] 79936- 2238 Jun, [facility] [address] [id number] [place] [address]- 8848 Jun, [facility] [place] [facility] [address] [id number] [place] [address]- 0251 Jun, [facility] [place] [facility] [address] [id number] [place] [address]- 6027 Apr, [facility] [place] [facility] [address] [id number] [place] [address]- 6091 Apr, [facility] [place] [facility] [address] [id number] [place] [address]- 5797 March, [facility] [place] [facility] [address] [id number] [place] [address]- 2768 March, [facility] [place] [facility] [address] [id number] [place] [address]- 5057 Jan, [facility] [place] [facility] [address] [id number] [place] [address]- 5537 Jan, [facility] [place] [facility] [address] [id number] [place] [address]- 0305 Jan, [facility] [place] [facility] [address] [id number] [place] [address]- 5525 Jan, [facility] [place] [facility] [address] [id number] [place] [address]- 4695 Jan, [facility] [place] [facility] [address] [id number] [place] [address]- 0249 Dec, [facility] [place] [facility] [address] [id number] [place] 0709 Dec, [facility] [place] [facility] [address] [id number] [place] [address]- 0891 Oct, [facility] [place] [facility] [address] [id number] [place] [address]- 3806 Oct, [facility] [place] [facility] [address] [id number] [place] [address]- 2546 Oct, [facility] [place] [facility] [address] [id number] [place] [address]- 9787 Oct, [facility] [place] [facility] [address] [id number] [place] [address]- 1304 Sep, [facility] [place] [facility] [address] [id number] [place] [address]- 8848 Sep, [facility] [place] [facility] [address] [id number] [place] [address]- 7325 Sep, [facility] [place] [facility] [address] [id number] [place] [address]- 9110 Aug, [facility] [place] [facility] [address] [id number] [place] [address]- 9761 Aug, [facility] [place] [facility] [address] [id number] [place] [address]- 1319 Aug, [facility] [place] [facility] [address] [id number] [place] [address]- 6876 Aug, [facility] [place] [facility] [address] [id number] [place] 3948 Aug, [facility] [place] [facility] [address] [id number] [place] [address]- 9845 Aug, [facility] [place] [facility] [address] [id number] [place] [address]- 9909 Aug, [facility] [place] [facility] [address] [id number] [place] [address]- 4482 Jul, [facility] [place] [facility] [address] [id number] [place] [address]- 6752 Jun, [facility] [place] [facility] [address] [id number] [place] [address]- 3181 Jun, [facility] [place] [facility] [address] [id number] [place] [address]- 1979 Jun, [facility] [place] [facility] [address] [id number] [place] [address]- 7445 Jun, [facility] [address] [id number] [place] [address]- 2490 Jun, [facility] [address] [id number] [place] [address] 2546 Jun, [facility] [address] [id number] [place] [address]- 7760 May, [facility] [address] [id number] [place] [address]- 2127 May, [facility] [address] [id number] [place] [address]- 4662 May, [facility] [address] [id number] [place] [address]- 2790 May, [facility] [address] [id number] [place] [address]- 3294 March, [facility] [address] [id number] [place] [address]- 7314 March, [facility] [address] [id number] [place] [address]- 0845 March, [facility] [address] [id number] [place] [address]- 5999 Feb, [facility] [address] [id number] [place] [address]- 7674 Feb, [facility] [address] [id number] [place] [address]- 4160 Feb, [facility] [address] [id number] [place] [address]- 9290 Feb, [facility] [address] [id number] [place] [address]- 2546 Jan, [facility] [address] [id number] [place] [address]- 3709 Jan, [facility] [address] [id number] [place] [address]- 0444 Jan, [facility] [address] [id number] [place] [address]- 0446 Dec, [facility] [address] [id number] [place] [address]- 4541 14 Dec, 2012 [facility] [address] [id number] [place] [address]- 3274 Dec, [facility] [address] [id number] [place] [address]- 4661 Dec, [facility] [address] [id number] [place] [address]- 5316 Dec, [facility] [address] [id number] [place] [address]- 9934 Nov, [facility] [address] [id number] [place] [address]- 1932 Nov, [facility] [address] [id number] [place] [address]- 1198 Nov, [facility] [address] [id number] [place] [address]- 7584 Nov, [facility] [address] [id number] [place] [address]- 3145 Oct, [facility] [place] [facility] [address] [id number] [place] [address]- 4352 Oct, [facility] [place] [facility] [address] [id number] [place] [address]- 1647 Oct, [facility] [place] [facility] [address] [id number] [place] [address]- 7546 Oct, [facility] [place] [facility] [address] [id number] [place] [address]- 1926 Oct, [facility] [address] [id number] [place] [address]- 5916 Oct, [facility] [place] [facility] [address] [id number] [place] [address]- 4816 Oct, [facility] [place] [facility] [address] [id number] [place] [address]- 4736 Oct, [facility] [place] [facility] [address] [id number] [place] [address]- 7486 Oct, [facility] [place] [facility] [address] [id number] [place] [address] 2546 Oct, [facility] [place] [facility] [address] [id number] [place] [address]- 9486 Oct, [facility] [place] [facility] [address] [id number] [place] [address]- 1204 Oct, [facility] [place] [facility] [address] [id number] [place] [address]- 5595 Oct, [facility] [place] [facility] [address] [id number] [place] [address]- 8200 Sep, [facility] [place] [facility] [address] [id number] [place] [address]- 2639 Sep, [facility] [place] [facility] [address] [id number] [place] [address]- 5373 Sep, [facility] [place] [facility] [address] [id number] [place] [address] 2546 Sep, [facility] [place] [facility] [address] [id number] [place] [address]- 2546 Sep, [facility] [place] [facility] [address] [id number] [place] [address]- 6296 Sep, [facility] [place] [facility] [address] [id number] [place] [address]- 0846 Sep, [facility] [place] [facility] [address] [id number] [place] [address]- 1194 Sep, [facility] [place] [facility] [address] [id number] [place] [address]- 8787 Sep, [facility] [place] [facility] [address] [id number] [place] [address]- 2916 Sep, [facility] [place] [facility] [address] [id number] [place] [address]- 9981 Sep, [facility] [place] [facility] [address] [id number] [place] [address]- 8386 Sep, [facility] [place] [facility] [address] [id number] [place] 0042 Aug, [facility] [place] [facility] [address] [id number] [place] [address]- 6883 Aug, [facility] [place] [facility] [address] [id number] [place] [address]- 1444 Aug, [facility] [place] [facility] [address] [id number] [place] [address]- 1211 Aug, [facility] [place] [facility] [address] [id number] [place] [address]- 8296 Aug, [facility] [place] [facility] [address] [id number] [place] [address]- 6322 Aug, [facility] [place] [facility] [address] [facility] [id number] [place] [address]- 6366 Aug, [facility] [place] [facility] [address] [id number] [address]- 1952 Aug, [facility] [place] [facility] [address] [id number] [place] [address]- 0246 Aug, [facility] [place] [facility] [address] [id number] [place] [address]- 1275 Aug, [facility] [place] [facility] [address] [id number] 5562 Aug, [facility] [place] [facility] [address] [id number], [place] [address]- 5936 Aug, [facility] [place] [facility] [address] [id number] [place] [address]- 6406 28 Jul, 2012 [facility] [place] [facility] [address] [id number] [place] [address]- 5336 27 Jul, 2012 [facility] [place] [facility] [address] [id number] [place] [address]- 5176 21 Jul, 2012 [facility] [place] [facility] [address] [id number] [place] [address]- 5483 10 Jul, 2012 [facility] [place] [facility] [address] [id number] [place] [address]- 0610 05 Jul, 2012 [facility] [place] [facility] [address] [id number] [place] [address]- 6870 04 Jul, 2012 [facility] [place] [facility] [address] [id number] [place] [address]- 3550 Jun, [facility] [place] [facility] [address] [id number] [place] [address]- 2129 Jun, [facility] [place] [facility] [address] [id number] [place] [address] Jun, [facility] [place] [facility] [address] [id number] [place] [address] May, [facility] [place] [facility] [address] [id number] [place] [address] May, [facility] [place] [facility] [address] [id number] [place] [address] May, [facility] [place] [facility] [address] [id number] [place] [address] May, [facility] [place] [facility] [address] [id number] [place] [address] May, [facility] [place] [facility] [address] [id number] [place] [address] May, [facility] [place] [facility] [address] [id number] [place] [address] 30 Apr, 2012 [facility] [place] [facility] [address] [id number] [place] [address] 23 Feb, 2012 [facility] [place] [facility] [address] [id number] [place] [address] 18 Feb, 2012 [facility] [place] [facility] [address] [id number] [place] [address] 11 Feb, 2012 [facility] [place] [facility] [address] [id number] [place] [address] 10 Feb, 2012 [facility] [place] [facility] [address] [id number] [place] [address] 16 Jan, 2012 [facility] [place] [facility] [address] [facility] [id number] [place] [address] 12 Jan, 2012 [facility] [place] [facility] [id number] [place] [address] 29 Dec, 2011 [facility] [place] [facility] [address] [id number] [place] [address] 28 Dec, 2011 [facility] [place] [facility] [id number] [place] [address] 21 Dec, 2011 [facility] [place] [facility] [id number] [place] [address] 14 Dec, 2011 [facility] [place] [facility] [id number] [place] [address] 14 Dec, 2011 [facility] [place] [facility] [address] [facility] [id number] [place] [address] 13 Dec, 2011 [facility] [place] [facility] [address] [facility] [id number] [place] [address] 09 Dec, 2011 [facility] [place] [facility] [address] [id number] [place] [address] 07 Dec, 2011 [facility] [place] [facility] [id number] [address] Dec, [facility] [address] [id number] [place] [address] Nov, [facility] [place] [facility] [address] [id number] [place] [address] Nov, [facility] [address] [id number] [place] [address] Nov, [facility] [place] [facility] [address] [id number] [place] [address] Nov, [facility] [address] [id number] [place] [address] Nov, [facility] [address] [id number] [place] [address] Nov, [facility] [address] [id number] [place] [address] Nov, [facility] [address] [id number] [place] [address] Nov, [facility] [address] [id number] [place] [address] Nov, [facility] [address] [id number] [place] [address] Oct, [facility] [address] [id number] [address] Oct, [facility] [place] [facility] [address] [id number], [place] [address] Oct, [facility] [place] [facility] [address] [id number] [place] [address] Oct, [facility] [place] [facility] [address] [address] [id number] [place] [address] Oct, [facility] [place] [facility] [address] [id number] [place] [address] Oct, [facility] [place] [facility] [address] [id number] [place] [address] 02 Sep, 2011 [facility] [address] [id number] [place] [address] 19 Aug, 2011 [facility] [place] [facility] [address] [id number] [place] [address] 19 Jul, 2011 [facility] [address] [id number] [place] [address] 17 Nov, 2010 [facility] [place] [facility] [address] [id number] [place] [address] Nov, [facility] [place] [facility] [address] [id number] [place] [address] Oct, [facility] [place] [facility] [address] [id number] [place] [address] Sep, [facility] [place] [facility] [address] [id number] [place] [address] Sep, [facility] [place] [facility] [address] [id number] [place] [address] 18 Aug, 2010 [facility] [place] [facility] [address] [id number] [place] [address] 14 Aug, 2010 [facility] [place] [facility] [address] [facility] [id number] [place] [address] 14 Aug, 2010 [facility] [place] [facility] [address] [id number] [place] [address] 13 Feb, 2010 [facility] [place] [facility] [address] [id number] [place] [address] 10 Dec, 2009 [facility] [place] [facility] [address] [id number] [place] [address] 30 Oct, 2009 [facility] [place] [facility] [address] [id number] [place] [address] Oct, [facility] [place] [facility] [address] [id number] [place] [address] Oct, [facility] [address] [facility] [id number] [address] Sep, [facility] [address] [facility] [id number], [place] [address] Sep, [facility] [address] [facility] [id number], [place] [address] Sep, [facility] [address] [facility] [id number], [place] [address] Aug, [facility] [address] [facility] [id number], [place] [address] Aug, IMMUNIZATIONS No Known Immunizations SOCIAL HISTORY Never Assessed REASON FOR VISIT Dental Pain PLAN OF CARE Activity Details Follow Up prn Reason:LEXII VITAL SIGNS Blood pressure systolic 121 mmHg 2017-04-06 Blood pressure diastolic 82 mmHg 2017-04-06 MEDICATIONS Medication Instructions Dosage Frequency Start Date End Date Duration Status Gabapentin 300 MG Orally Three times a day 1 capsule 8h March, 30 day(s) Active Desvenlafaxine Succinate ER 50 MG Orally Once a day in am 1 tablet March 30 day(s) Active [place] 5-325 MG Orally every 6 hrs 1 tablet as needed 6h March, March, 3 days Active Quetiapine Fumarate 200 MG Orally Once a day 1 tablet at bedtime 24h March 30 day(s) Active Clindamycin HCl 300 MG Orally every 8 hrs 1 capsule 8h March,March 07 days Active [place] Carbonate 300 MG Orally 2 times a day 1 capsule 12h March, 30 day(s) Active Minipress 1 MG Orally at bedtime 3 capsules March, 30 day(s) Active RESULTS No Results PROCEDURES Procedure Date Ordered Result Body Site LTD ORAL EVALUATION - PROBLEM FOCUS April 06, 2017 SURG REMOVAL ERUPTED TOOTH April 06, 2017 INSTRUCTIONS MEDICATIONS ADMINISTERED No Known Medications [...] EGD Hospitalization History mental health issues x2 [facility] [place] 2016 & 02/2017 Hospitalization History Surgery(s)/Childbirth(s)
--- OUTSIDE RECORDS SUMMARY | 2018-08-03 08:14 | XMS REPORT ---
Author Author ESPERANZA LUCI Organization [facility] Address [address] [place] [address] Care Team Providers Care Unionmelt Operator Name Role Phone GARIMALUCI REED Unavailable PROBLEMS Type Condition ICD9-CM Code NAQ90-BD Code Onset Dates Condition Status SNOMED Code Problem Anxiety F41.9 Active 10807485 Problem Severe episode of recurrent major depressive disorder, with psychotic features F33.3 Active 22692401 Problem PTSD (post-traumatic stress disorder) F43.10 Active 97318022 Problem Borderline personality disorder F60.3 Active 63715314 Problem Night terror F51.4 Active 21424982 Problem Cannabis use disorder, mild, abuse F12.10 Active 49114163 Problem Sciatica, unspecified side M54.30 Active 43877516 Problem Adjustment disorder with mixed anxiety and depressed mood F43.23 Active 70727288 Problem Mood disorder F39 Active 80774150 Problem Schizo affective schizophrenia F25.0 Active 223032708 Problem Bipolar 1 disorder F31.9 Active [id number] ALLERGIES No Information ENCOUNTERS Encounter Location Date Diagnosis [facility] [address] [address] March, [facility] [address] [address] March, [facility] [id number] [place] [address]- 8772 Feb, [facility] [id number] [place] [address] 70253- 7125 Feb, [facility] [address] [id number] [address] Feb, Breast cancer screening Z12.31 [facility] [address] [place] [address] 53965- 9056 Feb, Mood disorder F39 and PTSD (post-traumatic stress disorder) F43.10 [place] [address] [address]- [address] Feb, PTSD (post-traumatic stress disorder) F43.10 ; Mood disorder F39 ; Borderline personality disorder F60.3 and Cannabis use disorder, mild, abuse F12.10 [place] [address] [address]- 8134 Feb, Schizo affective schizophrenia F25.0 ; Adjustment disorder with mixed anxiety and depressed mood F43.23 ; Night terror F51.4 ; Anxiety F41.9 and Borderline personality disorder F60.3 [place] [address] [address]75- [address]89 Feb, [place] [address] [address]- 9236 Feb, Mood disorder F39 [place] [address] 42482- 5120 Feb, Annual physical exam Z00.00 ; BMI 40.0-44.9, adult Z68.41 and Nipple discharge N64.52 [place] [address] [place] [id number] [place] [address] 75714- 7147 Jan, Schizo affective schizophrenia F25.0 ; Adjustment disorder with mixed anxiety and depressed mood F43.23 ; Night terror F51.4 ; Anxiety F41.9 and Borderline personality disorder F60.3 [place] [address] [place] [id number] [place] [address] 88703- 3740 Jan, Mood disorder F39 ; PTSD (post-traumatic stress disorder) F43.10 ; Borderline personality disorder F60.3 and High risk medication use Z79.899 [place] [address] [place] [id number] [place] [address] 74934- 0503 Dec, Anxiety F41.9 and Borderline personality disorder F60.3 [place] [address] [place] [address] Dec, [facility] [id number] [place] [address] 56364- 0676 Dec, Anxiety F41.9 and Borderline personality disorder F60.3 [facility] [address] [id number] [place] [address] 81718- 1186 Dec, [facility] [id number] [place] [address] 77498- 3906 Dec, [facility] [id number] [place] [address] 60158- 5754 Nov, Acute non-recurrent maxillary sinusitis J01.00 ; Mood disorder F39 and Sciatica, unspecified side M54.30 [facility] [id number] [place] [address] 20494- 6573 Nov, Mood disorder F39 ; PTSD (post-traumatic stress disorder) F43.10 and Borderline personality disorder F60.3 [facility] [address] [place] [address] 33253- 6074 Nov, Anxiety F41.9 and Borderline personality disorder F60.3 [facility] [address] [place] [id number] [place] [address] 05544- 0138 Nov, [facility] [address] [place] [address] 57792- 9890 Nov, Anxiety F41.9 and Sciatica, unspecified side M54.30 [facility] [address] [place] [address] 08741- 0617 Oct, Anxiety F41.9 [facility] [address] [place] [id number] [place] [address] 28178- 9996 Oct, Mood disorder F39 ; PTSD (post-traumatic stress disorder) F43.10 ; Borderline personality disorder F60.3 and High risk medication use Z79.899 [facility] [address] [place] [address] [phone] Oct, Dental caries K02.9 and Dental examination Z01.20 [facility] [address] [place] [id number] [place] [address] 12896- 8914 Sep, Dysuria R30.0 and Abdominal pain, right lower quadrant R10.31 [facility] [address] [id number] [place] [address] 41423- 7961 Aug, Mood disorder F39 ; PTSD (post-traumatic stress disorder) F43.10 and Borderline personality disorder F60.3 [facility] [address] [id number] [place] [address] 14741- 3038 Aug, [facility] [id number] [place] [address] 06083- 6125 Aug, [facility] [address] [place] [id number] [place] [address] 74553- 5602 Aug, Severe episode of recurrent major depressive disorder, with psychotic features F33.3 ; PTSD (post-traumatic stress disorder) F43.10 ; Adjustment disorder with mixed anxiety and depressed mood F43.23 and Borderline personality disorder F60.3 [facility] [address] [address] [id number] [place] [address] 42957- 7268 Aug, Mood disorder F39 ; PTSD (post-traumatic stress disorder) F43.10 and Borderline personality disorder F60.3 [facility] [address] [place] [address] 78595- 0077 Aug, [facility] [address] [place] [id number] [place] [address] 95554- 9375 Aug, Bipolar 1 disorder F31.9 and Schizo affective schizophrenia F25.0 [facility] [address] [place] [id number] [place] [address] 46991- 8449 Aug, Mood disorder F39 [facility] [address] [place] [id number] [place] [address] 10189- 2984 Aug, Bipolar 1 disorder F31.9 and Schizo affective schizophrenia F25.0 [facility] [address] [place] [address] 45927- 3327 Aug, Bipolar 1 disorder F31.9 and Schizo affective schizophrenia F25.0 [place] [address] [place] [id number] [place] [address] 83893- 9536 Aug, [place] [address] [place] [id number] [place] [address] 41652- 9751 Aug, PTSD (post-traumatic stress disorder) F43.10 and Borderline personality disorder F60.3 [place] [address] [place] [address] [id number] [place] [address] 63510- 3599 Aug, [place] [address] [place] [address] [id number] [place] [address] 52684- 9693 Aug, Mood disorder F39 ; PTSD (post-traumatic stress disorder) F43.10 ; Borderline personality disorder F60.3 and Adjustment disorder with mixed anxiety and depressed mood F43.23 [place] [address] [address] [id number] [place] [address] 65120- 0622 Jul, [place] [address] [place] [id number] [place] [address] 01070- 0460 Jul, Mood disorder F39 ; PTSD (post-traumatic stress disorder) F43.10 and Borderline personality disorder F60.3 [place] [address] [place] [address] 92024- 0153 Jul, [place] [address] [place] [id number] [place] [address] 73859- 2481 Jun, Anxiety F41.9 ; ADHD (attention deficit hyperactivity disorder) F90.9 ; Night terror F51.4 ; Bulimia F50.2 ; Severe episode of recurrent major depressive disorder, with psychotic features F33.3 and PTSD ( post-traumatic stress disorder) F43.10 [place] [address], [place] [address]- 5461 Jun, Borderline personality disorder F60.3 ; Mood disorder F39 and PTSD (post-traumatic stress disorder) F43.10 [place] [address], [place] [address]- 8397 Jun, Anxiety F41.9 [facility] [address] [place] [id number] [place] [address] 76400- 6387 Jun, Anxiety F41.9 ; ADHD (attention deficit hyperactivity disorder) F90.9 ; Night terror F51.4 ; Bulimia F50.2 ; Severe episode of recurrent major depressive disorder, with psychotic features F33.3 and PTSD ( post-traumatic stress disorder) F43.10 [place] [address] [place] [id number] [place] [address] 37431- 3226 Jun, ADHD (attention deficit hyperactivity disorder) F90.9 ; Night terror F51.4 ; Bulimia F50.2 ; Anxiety F41.9 ; Severe episode of recurrent major depressive disorder, with psychotic features F33.3 and PTSD ( post-traumatic stress disorder) F43.10 [place] [address] [place] [id number] [place] [address] 96223- 4819 May, Anxiety F41.9 [place] [address] [place] [id number] [place] [address] 70477- 7286 May, PTSD (post-traumatic stress disorder) F43.10 and Borderline personality disorder F60.3 [place] [address] [place] [id number] [place] [address] 25951- 5282 Apr, [facility] [address] [place] [address] [id number] March, Dental examination Z01.20 and Dental caries K02.9 [place] [address] [place] [id number] [place] [address] 26497- 4921 March, Dental examination Z01.20 [place] [address] [place] [id number] [place] [address] 58431- 3716 March, Tooth abscess K04.7 and Tooth pain K08.89 [place] [address] [place] [id number] [place] [address] 52308- 2816 March, Borderline personality disorder F60.3 [facility] [id number] [place] [address] 06535- 4302 March, ADHD (attention deficit hyperactivity disorder) F90.9 ; Night terror F51.4 ; Bulimia F50.[address] [facility] [address] [place] [address] [id number] [place] [address] 70222- 1282 Feb, Borderline personality disorder F60.3 ; ADHD (attention deficit hyperactivity disorder) F90.9 ; Anxiety F41.9 ; Bulimia F50.2 ; Obsessive-compulsive disorder, unspecified type F42.9 and Night terror F51.4 [facility] [address] [place] [id number] [place] [address] 92117- 9972 Feb, [facility] [address] [place] [id number] [place] [address] 81894- 0976 Feb, [facility] [address] [place] [id number] [place] [address] 61847- 9718 Jul, [facility] [address] [place] [id number] [place] [address] 36664- 2371 Jul, [facility] [address] [place] [id number] [place] [address] 93359- 0482 Jul, [facility] [address] [place] [id number] [place] [address] 98965- 9864 Jul, [facility] [address] [place] [id number] [place] [address] 28683- 9089 Jun, [facility] [address] [place] [id number] [place] [address] 17779- 5817 Jun, [facility] [address] [place] [id number] [place] [address] 14871- 5637 Jun, [facility] [address] [place] [id number] [place] [address] 26197- 0168 Jun, [facility] [address] [place] [id number] [place] [address] 94885- 2546 Apr, [facility] [place] [facility] [address] [id number] [place] 1615 Apr, [facility] [place] [facility] [address] [id number] [place] [address]- 7861 March, [facility] [place] [facility] [address] [id number] [place] 4146 March, [facility] [place] [facility] [address] [id number] [place] [address]- 9051 Jan, [facility] [place] [facility] [address] [id number] [place] 2661 Jan, [facility] [place] [facility] [address] [id number] [place] [address]- 3251 Jan, [facility] [place] [facility] [address] [id number] [place] [address]- 9364 Jan, [facility] [place] [facility] [address] [id number] [place] [address]- 6229 Jan, [facility] [place] [facility] [address] [id number] [place] [address]- 7283 Dec, [facility] [place] [facility] [address] [id number] [place] [address]- 4040 Dec, [facility] [place] [facility] [address] [id number] [place] [address]- 4533 Oct, [facility] [place] [facility] [address] [id number] [place] [address]- 1024 Oct, [facility] [place] [facility] [address] [id number] [place] [address]- 4001 Oct, [facility] [place] [facility] [address] [id number] [place] [address]- 5921 Oct, [facility] [place] [facility] [address] [id number] [place] [address]- 5035 Sep, [facility] [place] [facility] [address] [id number] [place] [address]- 5127 Sep, [facility] [place] [facility] [address] [id number] [place] [address]- 0605 Sep, [facility] [place] [facility] [address] [id number] [place] [address]- 3843 Aug, [facility] [place] [facility] [address] [id number] [place] [address]- 0512 Aug, [facility] [place] [facility] [address] [id number] [place] [address]- 3041 Aug, [facility] [place] [facility] [address] [id number] [place] [address]- 7869 Aug, [facility] [place] [facility] [address] [id number] [place] [address]- 5668 Aug, [facility] [place] [facility] [address] [id number] [place] [address]- 4303 Aug, [facility] [place] [facility] [address] [id number] [place] [address]- 3496 Aug, [facility] [place] [facility] [address] [id number] [place] [address]- 7598 Jul, [facility] [place] [facility] [address] [id number] [place] [address]- 2994 Jun, [facility] [place] [facility] [address] [id number] [place] [address]- 7529 Jun, [facility] [place] [facility] [address] [id number] [place] [address]- 6715 Jun, [facility] [place] [facility] [address] [id number] [place] [address]- 2258 Jun, [facility] [place] [facility] [address] [id number] [place] [address] 2546 Jun, [facility] [place] [facility] [address] [id number] [place] [address]- 9764 Jun, [facility] [address] [id number] [place] [address]- 0454 May, [facility] [place] [facility] [address] [id number] [place] [address]- 1803 May, [facility] [address] [id number] [place] [address]- 2475 May, [facility] [place] [facility] [address] [id number] [place] [address]- 4558 May, [facility] [address] [id number] [place] [address]- 3939 March, [facility] [address] [id number] [place] [address]- 7037 March, [facility] [address] [id number] [place] [address]- 3412 March, [facility] [address] [id number] [place] [address]- 7876 Feb, [facility] [address] [id number] [place] [address]- 6445 Feb, [facility] [address] [id number] [place] [address]- 8785 Feb, [facility] [place] [facility] [address] [id number] [place] [address]- 8366 Feb, [facility] [place] [facility] [address] [id number], [place] [address]- 7310 Jan, [facility] [place] [facility] [address] [id number] [place] [address]- 8810 Jan, [facility] [place] [facility] [address] [id number] [place] [address]- 3750 Jan, [facility] [place] [facility] [address] [id number] [place] [address]- 3013 Dec, [facility] [place] [facility] [address] [id number] [place] [address]- 2522 14 Dec, 2012 [facility] [address] [id number] [place] [address]- 2496 12 Dec, 2012 [facility] [address] [id number] [place] [address] 2546 05 Dec, 2012 [facility] [address] [id number] [place] [address]- 0866 04 Dec, 2012 [facility] [address] [id number] [place] [address] 2546 31 Nov, 2012 [facility] [address] [id number] [place] [address]- 4784 23 Nov, 2012 [facility] [address] [id number] [place] [address]- 2756 Nov, [facility] [address] [id number] [place] [address]- 1985 Nov, [facility] [address] [id number] [place] [address]- 0220 Oct, [facility] [address] [id number] [place] [address]- 5856 Oct, [facility] [address] [id number] [place] [address]- 2548 Oct, [facility] [address] [id number] [place] [address] 2546 Oct, [facility] [address] [id number] [place] [address] 2546 Oct, [facility] [address] [id number] [place] [address] 2546 Oct, [facility] [address] [id number] [place] [address]- 2546 Oct, [facility] [address] [id number] [place] [address] 4470 Oct, [facility] [place] [facility] [address] [id number] [place] [address]- 3809 Oct, [facility] [place] [facility] [address] [id number] [place] [address]- 1626 Oct, [facility] [place] [facility] [address] [id number] [place] [address]- 6543 Oct, [facility] [place] [facility] [address] [id number] [place] [address]- 4196 Oct, [facility] [place] [facility] [address] [id number] [place] [address]- 5915 Oct, [facility] [place] [facility] [address] [id number] [place] [address]- 2878 Sep, [facility] [place] [facility] [address] [id number] [place] [address]- 4836 Sep, [facility] [place] [facility] [address] [id number] [place] [address]- 1403 Sep, [facility] [place] [facility] [address] [id number] [place] [address]- 7041 Sep, [facility] [place] [facility] [address] [facility] [id number], [place] [address]- 3638 Sep, [facility] [place] [facility] [address] [facility] [id number], [place] [address]- 8779 Sep, [facility] [place] [facility] [address] [id number], [place] [address]- 1202 Sep, [facility] [place] [facility] [address] [id number], [place] [address]- 1958 Sep, [facility] [place] [facility] [address] [id number], [place] [address]- 7540 Sep, [facility] [place] [facility] [address] [facility] [id number], [place] [address]- 6672 Sep, [facility] [place] [facility] [address] [id number], [place] [address]- 0914 Sep, [facility] [place] [facility] [address] [id number] [place] [address]- 9661 Sep, [facility] [place] [facility] [address] [id number] [place] [address]- 6983 Aug, [facility] [place] [facility] [address] [facility] [id number] [place] [address]- 1003 Aug, [facility] [place] [facility] [address] [id number] [place] [address] Aug, [facility] [place] [facility] [address] [id number] [place] [address] Aug, [facility] [place] [facility] [address] [facility] [id number] [place] [address] Aug, [facility] [place] [facility] [address] [facility] [id number] [place] [address] Aug, [facility] [place] [facility] [address] [facility] [id number] [place] [address] Aug, [facility] [place] [facility] [address] [facility] [id number] [place] [address] Aug, [facility] [place] [facility] [address] [facility] [id number], [place] [address] Aug, [facility] [place] [facility] [address] [facility] [id number], [place] [address] Aug, [facility] [place] [facility] [address] [facility] [id number], [place] [address] Aug, [facility] [place] [facility] [address] [id number] [place] [address] Aug, [facility] [place] [facility] [address] [facility] [id number][place] [id number] [address] Jul, [facility] [place] [facility] [address] [facility] [id number] [place] [address] 27 Jul, 2012 [facility] [place] [facility] [address] [id number] [place] [address] 21 Jul, 2011 [facility] [place] [facility] [address] [id number] [place] [address] 10 Jul, 2012 [facility] [place] [facility] [address] [id number] [place] [address] 05 Jul, 2012 [facility] [place] [facility] [address] [id number] [place] [address] 04 Jul, 2012 [facility] [place] [facility] [address] [id number] [place] [address] Jun, [facility] [place] [facility] [address] [id number] [place] [address] Jun, [facility] [place] [facility] [address] [id number] [place] [address] Jun, [facility] [place] [facility] [address] [id number] [place] [address] May, [facility] [place] [facility] [address] [id number] [place] [address] May, [facility] [place] [facility] [address] [id number] [place] [address] May, [facility] [place] [facility] [address] [id number] [place] [address] May, [facility] [place] [facility] [address] [id number] [place] [address] May, [facility] [place] [facility] [address] [id number] [place] [address] May, [facility] [place] [facility] [address] [id number] [place] [address] Apr, [facility] [place] [facility] [address] [id number] [place] [address] Feb, [facility] [place] [facility] [address] [id number] [place] [address] 18 Feb, 2012 [facility] [place] [facility] [address] [id number] [place] [address] 11 Feb, 2012 [facility] [place] [facility] [address] [id number] [place] [address] 10 Feb, 2012 [facility] [place] [facility] [address] [id number] [place] [address] 16 Jan, 2012 [facility] [place] [facility] [address] [id number] [place] [address] 12 Jan, 2012 [facility] [place] [facility] [address] [id number] [place] [address] 29 Dec, 2011 [facility] [place] [facility] [address] [id number] [place] [address] 28 Dec, 2011 [facility] [place] [facility] [address] [id number] [place] [address] 21 Dec, 2011 [facility] [place] [facility] [address] [id number] [place] [address] 14 Dec, 2011 [facility] [place] [facility] [address] [id number] [place] [address] 14 Dec, 2011 [facility] [place] [facility] [address] [id number] [place] [address] 13 Dec, 2011 [facility] [place] [facility] [address] [id number] [place] [address] 09 Dec, 2011 [facility] [place] [facility] [address] [id number] [place] [address] 07 Dec, 2011 [facility] [place] [facility] [address] [id number] [place] [address] 02 Dec, 2011 [facility] [facility] [address] [id number] [place] [address] 30 Nov, 2011 [facility] [place] [facility] [address] [facility] [id number] [place] [address] Nov, [facility] [place] [facility] [address] [id number] [place] [address] Nov, [facility] [place] [facility] [address] [id number] [place] [address] Nov, [facility] [place] [facility] [address] [id number] [place] [address] Nov, [facility] [place] [facility] [address] [id number] [place] [address] Nov, [facility] [place] [facility] [address] [id number] [place] [address] Nov, [facility] [place] [facility] [address] [id number] [place] [address] Nov, [facility] [place] [facility] [address] [id number] [place] [address] Nov, [facility] [place] [facility] [address] [id number] [place] [address] Oct, [facility] [place] [facility] [address] [id number] [place] [address] Oct, [facility] [place] [facility] [address] [id number] [place] [address] Oct, [facility] [place] [facility] [address] [id number] [place] [address] Oct, [facility] [place] [facility] [address] [id number] [place] [address] Oct, [facility] [place] [facility] [address] [id number] [place] [address] Oct, [facility] [place] [facility] [address] [id number] [place] [address] Sep, [facility] [place] [facility] [address] [id number] [place] [address] Aug, [facility] [place] [facility] [address] [id number] [place] [address] 19 Jul, 2011 [facility] [address] [id number] [place] [address] 17 Nov, 2010 [facility] [facility] [address] [id number] [place] [address] 10 Nov, 2010 [facility] [place] [facility] [address] [id number] [place] [address] 23 Oct, 2010 [facility] [place] [facility] [address] [id number] [place] [address] 10 Sep, 2010 [facility] [facility] [address] [id number] [place] [address] Sep, [facility] [place] [facility] [address] [id number] [place] [address] 18 Aug, 2010 [facility] [place] [facility] [address] [id number] [place] [address] 14 Aug, 2010 [facility] [place] [facility] [address] [id number], [place] [address] 14 Aug, 2010 [facility] [address] [id number] [place] [address] 13 Feb, 2010 [facility] [facility] [address] [facility] [id number] [place] [address] 10 Dec, 2009 [facility] [facility] [address] [id number], [place] [address] 30 Oct, 2009 [facility] [address] [id number], [place] [address] Oct, [facility] [address] [id number] [place] [address] 08 Oct, 2009 [facility] [address] [facility] [id number], [place] [address] 20 Sep, 2009 [facility] [address] [facility] [id number], [place] [address] Sep, [facility] [address] [facility] [id number] [place] [address] Sep, [facility] [address] [facility] [id number] [place] [address] Aug, [facility] [address] [facility] [id number] [place] [address] Aug, IMMUNIZATIONS No Known Immunizations SOCIAL HISTORY Never Assessed REASON FOR VISIT PLAN OF CARE VITAL SIGNS MEDICATIONS Medication Instructions Dosage Frequency Start Date End Date Duration Status Desvenlafaxine Succinate ER 50 mg Orally Once a day in am 1 tablet Active RESULTS No Results PROCEDURES No Known [...] mental health issues x2 Ward Unit in [place] 2016 & 02/2017 Hospitalization History Surgery(s)/Childbirth(s)
--- OUTSIDE RECORDS SUMMARY | 2018-08-03 08:15 | XMS REPORT ---
Author Author RACHAEL CHEATHAM Organization [facility] Address [address] [place] [address] Care Team Providers Care Handbag Frames Inspector Name Role Phone RACHAEL CHEATHAM Unavailable PROBLEMS Type Condition ICD9-CM Code HBF66-SL Code Onset Dates Condition Status SNOMED Code Problem Adjustment disorder with mixed anxiety and depressed mood F43.23 Active 37237900 Problem Bipolar 1 disorder F31.9 Active 531756372 Problem Schizo affective schizophrenia F25.0 Active 638399334 Problem Dysmenorrhea N94.6 Active 756677900 Problem Morbid obesity due to excess calories E66.01 Active 546156492 Problem Cannabis use disorder, mild, abuse F12.10 Active 36226517 Problem Sciatica, unspecified side M54.30 Active 91309843 Problem Other chronic pain G89.29 Active 75792206 Problem Lumbago with sciatica, right side M54.41 Active 616353173 Problem Anxiety F41.9 Active 67553251 Problem PTSD (post-traumatic stress disorder) F43.10 Active 20871495 Problem Borderline personality disorder F60.3 Active 47711180 Problem Severe episode of recurrent major depressive disorder, with psychotic features F33.3 Active 42627973 Problem Night terror F51.4 Active 07028657 Problem Mood disorder F39 Active 77890222 ALLERGIES No Information ENCOUNTERS Encounter Location Date Diagnosis [facility] [id number], [place] [address] Aug, [facility] [id number] [place] [address] 34695- 2564 Jul, Anxiety F41.9 and Skin tags, multiple acquired L91.8 [facility] [id number], [place] [address] 05 Jul, 2018 BMI 45.0-49.9, adult Z68.42 ; Anxiety F41.9 ; Acute pain of left foot M79.672 and Acute swimmer''s ear of right side H60.331 [facility] [id number] [place] [address] 95937- 3652 Jun, [facility] [id number] [place] [address] 39185- 4588 Jun, PTSD (post-traumatic stress disorder) F43.10 ; Mood disorder F39 ; Borderline personality disorder F60.3 and Cannabis use disorder, mild, abuse F12.10 [place] [id number] [place] [address] 99851- 6053 Jun, [place] [address] [address]58- 6605 Jun, PTSD (post-traumatic stress disorder) F43.10 [place] [address] 60749- 6667 Jun, [place] adverse reaction T43.595A and Sprain of anterior talofibular ligament of left ankle, initial encounter S93.492A [place] [id number] [place] [address] 14313- 5437 Jun, [place] [address] 97275- 3155 May, [place] [id number] [place] [address] 87971- 7690 May, Skin tags, multiple acquired L91.8 ; Dysmenorrhea N94.6 and Acute non-recurrent maxillary sinusitis J01.00 [place] [id number] [place] [address] 58564- 4013 May, PTSD (post-traumatic stress disorder) F43.10 [place] [id number] [place] [address] 51680- 6013 May, 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 [place] [address] 48934- 3022 May, PTSD (post-traumatic stress disorder) F43.10 ; Mood disorder F39 ; Borderline personality disorder F60.3 and Cannabis use disorder, mild, abuse F12.10 [place] [id number] [place] [address] 77042- 5699 May, BMI 40.0-44.9, adult Z68.[address] 12099- 6044 18 Apr, 2018 BMI 40.0-44.9, adult Z68.41 [place] [id number] [place] [address] 26910- 2626 14 Apr, 2018 Acute non-recurrent maxillary sinusitis J01.[address] 23669- 6050 11 Apr, 2018 PTSD (post-traumatic stress disorder) F43.10 ; Mood disorder F39 ; Borderline personality disorder F60.3 ; Cannabis use disorder, mild, abuse F12.10 and 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 [place] [id number] [place] [address] 68993- 5210 08 Apr, [address] 84621- 7464 07 Apr, 2018 Annual physical exam Z00.00 and High risk medication use Z79.899 [id number] [place] [address] 81591- 2801 07 Apr, 2018 PTSD (post-traumatic stress disorder) F43.10 [place] [id number] [place] [address] 58591- 7839 Apr, [address] 83257- 8520 March, BMI 40.0-44.9, adult Z68.41 ; Morbid obesity due to excess calories E66.01 ; Lumbago with sciatica, right side M54.41 and Other chronic pain G89.29 [address], [place] [address] 1666 March, PTSD (post-traumatic stress disorder) F43.10 [place] [id number] [place] [address] 34536- 4501 March, PTSD (post-traumatic stress disorder) F43.10 ; Mood disorder F39 ; Borderline personality disorder F60.3 and Cannabis use disorder, mild, abuse F12.10 [place] [id number] [place] [address] 47500- 3708 Feb, [place] [address] [place] [address] 58552- 0340 Feb, [facility] [address] [place], [place] [id number] [place] [address] Feb, Breast cancer screening Z12.31 [place] [id number] [place] [address] 94877- 1590 Feb, Mood disorder F39 and PTSD (post-traumatic stress disorder) F43.10 [place] [address], [place] [address] 9991 Feb, PTSD (post-traumatic stress disorder) F43.10 ; Mood disorder F39 ; Borderline personality disorder F60.3 and Cannabis use disorder, mild, abuse F12.10 [address], [place] [address] 0965 Feb, Schizo affective schizophrenia F25.0 ; Adjustment disorder with mixed anxiety and depressed mood F43.23 ; Night terror F51.4 ; Anxiety F41.9 and Borderline personality disorder F60.3 [place] [id number] [place] [address] 50141- 2050 Feb, [place] [id number] [place] [address] 06948- 8200 Feb, Mood disorder F39 [place] [address] [place] [address] 84260- 9274 Feb, Annual physical exam Z00.00 ; BMI 40.0-44.9, adult Z68.41 and Nipple discharge N64.52 [place] [address] 93667- 5610 Jan, Schizo affective schizophrenia F25.0 ; Adjustment disorder with mixed anxiety and depressed mood F43.23 ; Night terror F51.4 ; Anxiety F41.9 and Borderline personality disorder F60.3 [place] [address] 05095- 0195 Jan, Mood disorder F39 ; PTSD (post-traumatic stress disorder) F43.10 ; Borderline personality disorder F60.3 and High risk medication use Z79.899 [place] [address] 28666- 0945 Dec, Anxiety F41.9 and Borderline personality disorder F60.3 [place] [address] 25241- 4368 Dec, [place] [address] 87934- 2014 Dec, Anxiety F41.9 and Borderline personality disorder F60.3 [place] [address] 85065- 0182 Dec, [place] [address] 22720- 4101 Dec, [place] [address] 16946- 3900 Nov, Acute non-recurrent maxillary sinusitis J01.00 ; Mood disorder F39 and Sciatica, unspecified side M54.30 [place] [address] 52881- 8256 Nov, Mood disorder F39 ; PTSD (post-traumatic stress disorder) F43.10 and Borderline personality disorder F60.3 [place] [address] 68851- 8863 Nov, Anxiety F41.9 and Borderline personality disorder F60.3 [facility] [id number] [place] [address] 23744- 1400 Nov, [facility] [address] 81802- 7794 Nov, Anxiety F41.9 and Sciatica, unspecified side M54.30 [place] [id number] [place] [address] 87015- 7062 Oct, Anxiety F41.9 [place] [address] 96242- 772 Oct, Mood disorder F39 ; PTSD (post-traumatic stress disorder) F43.10 ; Borderline personality disorder F60.3 and High risk medication use Z79.899 [facility] [address] [id number] Oct, Dental caries K02.9 and Dental examination Z01.20 [place] [id number] [place] [address] 60531- 3199 Sep, Dysuria R30.0 and Abdominal pain, right lower quadrant R10.31 [place] [id number] [place] [address] 54241- 3055 Aug, Mood disorder F39 ; PTSD (post-traumatic stress disorder) F43.10 and Borderline personality disorder F60.3 [place] [id number] [place] [address] 43507- 2521 Aug, [facility] [id number] [place] [address] 45041- 7949 Aug, [place] [id number] [place] [address] 30544- 3615 Aug, Severe episode of recurrent major depressive disorder, with psychotic features F33.3 ; PTSD (post-traumatic stress disorder) F43.10 ; Adjustment disorder with mixed anxiety and depressed mood F43.23 and Borderline personality disorder F60.3 [facility] [address] [id number] [address]- 3399 Aug, Mood disorder F39 ; PTSD (post-traumatic stress disorder) F43.10 and Borderline personality disorder F60.3 [facility] [address] [id number], [place] [address] 2546 Aug, [facility] [id number] [place] [address] 11110- 6956 Aug, Bipolar 1 disorder F31.9 and Schizo affective schizophrenia F25.0 [facility] [address] [id number], [place] [address]- 7466 Aug, Mood disorder F39 [facility] [id number] [place] [address] 23056- 8236 Aug, Bipolar 1 disorder F31.9 and Schizo affective schizophrenia F25.0 [facility] [address] [place] [address] 40232- 2019 Aug, Bipolar 1 disorder F31.9 and Schizo affective schizophrenia F25.0 [facility] [id number] [place] [address] 81490- 6591 Aug, [facility] [id number], [place] [address]- 2246 Aug, PTSD (post-traumatic stress disorder) F43.10 and Borderline personality disorder F60.3 [facility] [id number], [place] [address]- 4095 Aug, [facility] [id number] [place] [address] 78297- 2546 Aug, Mood disorder F39 ; PTSD (post-traumatic stress disorder) F43.10 ; Borderline personality disorder F60.3 and Adjustment disorder with mixed anxiety and depressed mood F43.23 [facility] [id number], [place] [address]- 8416 Jul, [facility] [id number], [place] [address]- 6249 Jul, Mood disorder F39 ; PTSD (post-traumatic stress disorder) F43.10 and Borderline personality disorder F60.3 [place], [place] [address]- 5531 Jul, [place] [address] [place] [address] 93395- 9907 Jun, Anxiety F41.9 ; ADHD (attention deficit hyperactivity disorder) F90.9 ; Night terror F51.4 ; Bulimia F50.2 ; Severe episode of recurrent major depressive disorder, with psychotic features F33.3 and PTSD ( post-traumatic stress disorder) F43.10 [place] [address] [place] [address] 57236- 2229 Jun, Borderline personality disorder F60.3 ; Mood disorder F39 and PTSD (post-traumatic stress disorder) F43.10 [place] [address] [place] [address] 75747- 6789 Jun, Anxiety F41.9 [place] [address] [place] [address] 15370- 1126 Jun, Anxiety F41.9 ; ADHD (attention deficit hyperactivity disorder) F90.9 ; Night terror F51.4 ; Bulimia F50.2 ; Severe episode of recurrent major depressive disorder, with psychotic features F33.3 and PTSD ( post-traumatic stress disorder) F43.10 [place] [address] [place] [address] 24266- 2006 Jun, ADHD (attention deficit hyperactivity disorder) F90.9 ; Night terror F51.4 ; Bulimia F50.2 ; Anxiety F41.9 ; Severe episode of recurrent major depressive disorder, with psychotic features F33.3 and PTSD ( post-traumatic stress disorder) F43.10 [place] [place], [place] [address]- 4070 May, Anxiety F41.9 [place] [address], [place] [address]- 8755 May, PTSD (post-traumatic stress disorder) F43.10 and Borderline personality disorder F60.3 [facility] [address] [place] [address] 96556- 1884 Apr, [facility] [address] [id number] March, Dental examination Z01.20 and Dental caries K02.9 [facility] [id number] [place] [address] 51950- 4447 March, Dental examination Z01.20 [facility] [id number] [place] [address] 38680- 7789 March, Tooth abscess K04.7 and Tooth pain K08.89 [place] [id number] [place] [address] 37540- 1733 March, Borderline personality disorder F60.3 [facility] [address] [place] [address] 32913- 2595 March, ADHD (attention deficit hyperactivity disorder) F90.9 ; Night terror F51.4 ; Bulimia F50.2 and Anxiety F41.9 [facility] [address], [place] [address]- 0972 Feb, Borderline personality disorder F60.3 ; ADHD (attention deficit hyperactivity disorder) F90.9 ; Anxiety F41.9 ; Bulimia F50.2 ; Obsessive-compulsive disorder, unspecified type F42.9 and Night terror F51.4 [facility] [address], [place] [address]- 0009 Feb, [facility] [id number] [place] [address] 65009- 9486 13 Feb, 2015 [facility] [id number] [place] [address] 99150- 6216 04 Jul, 2014 [facility] [id number] [place] [address]- 2971 Jul, [facility] [place] [facility] [address] [id number] [place] [address]- 7174 Jul, [facility] [place] [facility] [address] [id number] [place] 9216 Jul, [facility] [place] [facility] [address] [id number] [place] [address]- 0456 Jun, [facility] [place] [facility] [address] [id number] [place] [address]- 9485 Jun, [facility] [place] [facility] [address] [id number] [place] [address]- 1051 Jun, [facility] [place] [facility] [address] [id number] [place] [address]- 4817 Jun, [facility] [place] [facility] [address] [id number] [place] [address]- 3815 Apr, [facility] [place] [facility] [address] [id number] [place] [address]- 0607 Apr, [facility] [place] [facility] [address] [id number] [place] [address]- 0168 March, [facility] [place] [facility] [address] [id number] [place] [address]- 4311 March, [facility] [place] [facility] [address] [id number] [place] [address]- 1580 Jan, [facility] [place] [facility] [address] [id number] [place] [address]- 4362 Jan, [facility] [place] [facility] [address] [id number] [place] [address]- 5687 Jan, [facility] [place] [facility] [address] [id number] [place] [address]- 9248 Jan, [facility] [place] [facility] [address] [id number] [place] [address]- 3004 Jan, [facility] [place] [facility] [address] [id number] [place] [address]- 0146 Dec, [facility] [place] [facility] [address] [id number] [place] 0994 Dec, [facility] [place] [facility] [address] [id number] [place] [address]- 3767 Oct, [facility] [place] [facility] [address] [id number] [place] 4643 Oct, [facility] [place] [facility] [address] [id number] [place] [address]- 7820 Oct, [facility] [place] [facility] [address] [id number] [place] [address]- 1953 Oct, [facility] [place] [facility] [address] [id number] [place] [address]- 7927 Sep, [facility] [place] [facility] [address] [id number] [place] [address]- 1402 Sep, [facility] [place] [facility] [address] [id number] [place] [address]- 9264 Sep, [facility] [place] [facility] [address] [id number], [place] [address]- 7771 Aug, [facility] [place] [facility] [address] [id number], [place] [address]- 9327 Aug, [facility] [place] [facility] [address] [id number], [place] [address]- 9379 Aug, [facility] [place] [facility] [address] [id number], [place] [address]- 0297 Aug, [facility] [place] [facility] [address] [id number] 1874 Aug, [facility] [place] [facility] [address] [id number], [place] [address]- 0826 Aug, [facility] [place] [facility] [address] [id number], [place] [address]- 4931 Aug, [facility] [address] [id number] [place] [address]- 0164 Jul, [facility] [place] [facility] [address] [id number] [place] [address]- 4095 Jun, [facility] [place] [facility] [address] [id number] [place] [address]- 8777 Jun, [facility] [place] [facility] [address] [id number] [place] [address]- 8560 Jun, [facility] [place] [facility] [address] [id number] [place] [address]- 3811 Jun, [facility] [place] [facility] [address] [id number] [place] [address]- 4111 Jun, [facility] [address] [id number] [place] [address]- 9442 Jun, [facility] [place] [facility] [address] [id number] [place] [address]- 1273 May, [facility] [place] [facility] [address] [id number] [place] [address]- 3779 May, [facility] [place] [facility] [address] [id number] [place] [address]- 7213 May, [facility] [place] [facility] [address] [id number] [place] [address]- 0503 May, [facility] [place] [facility] [address] [id number] [place] [address]- 8029 March, [facility] [place] [facility] [address] [id number] [place] [address]- 3280 March, [facility] [place] [facility] [address] [id number] [place] 0054 March, [facility] [place] [facility] [address] [id number] [place] [address]- 5289 Feb, [facility] [place] [facility] [address] [id number] [place] [address]- 6853 29 Feb, 2013 [facility] [address] [id number] [place] [address]- 6497 10 Feb, 2013 [facility] [place] [facility] [address] [id number] [place] [address]- 5116 04 Feb, 2013 [facility] [address] [id number] [place] [address]- 6566 27 Jan, 2013 [facility] [place] [facility] [address] [id number] [place] [address]- 2403 Jan, [facility] [address] [id number] [place] [address]- 9627 Jan, [facility] [address] [id number] [place] [address]- 5631 Dec, [facility] [address] [id number] [place] [address]- 9751 14 Dec, 2012 [facility] [address] [id number] [place] [address]- 0199 Dec, [facility] [address] [id number] [place] [address]- 7784 05 Dec, 2012 [facility] [address] [id number] [place] [address]- 2566 Dec, [facility] [address] [id number] [place] [address]- 5619 Nov, [facility] [place] [facility] [address] [id number] [place] [address]- 2092 Nov, [facility] [place] [facility] [address] [id number] [place] [address]- 0174 Nov, [facility] [place] [facility] [address] [id number] [place] [address]- 2945 14 Nov, 2012 [facility] [place] [facility] [address] [id number] [place] [address]- 7566 Oct, [facility] [place] [facility] [address] [id number] [place] [address]- 3166 Oct, [facility] [place] [facility] [address] [id number] [place] [address]- 3026 Oct, [facility] [place] [facility] [address] [id number] [place] [address]- 1756 Oct, [facility] [place] [facility] [address] [id number] [place] [address]- 1896 Oct, [facility] [place] [facility] [address] [id number] [place] [address]- 1626 Oct, [facility] [place] [facility] [address] [id number] [place] [address]- 2713 Oct, [facility] [place] [facility] [address] [id number] [place] [address]- 9076 Oct, [facility] [place] [facility] [address] [id number] [place] [address] Oct, [facility] [place] [facility] [address] [id number] [place] [address] Oct, [facility] [place] [facility] [address] [id number] [place] [address] Oct, [facility] [place] [facility] [address] [id number] [place] [address] Oct, [facility] [place] [facility] [address] [id number] [place] [address] Oct, [facility] [place] [facility] [address] [id number] [place] [address] Sep, [facility] [place] [facility] [address] [id number] [place] [address] Sep, [facility] [place] [facility] [address] [id number] [place] [address] Sep, [facility] [place] [facility] [address] [id number] [place] [address] Sep, [facility] [place] [facility] [address] [id number] [place] [address] Sep, [facility] [place] [facility] [address] [id number] [place] [address] Sep, [facility] [place] [facility] [address] [id number] [place] [address] Sep, [facility] [place] [facility] [address] [id number] [place] [address] Sep, [facility] [place] [facility] [address] [id number] [place] [address], [place] [address]- [address] Sep, [facility] [place] [facility] [address] [id number] [place] [address] Sep, [facility] [place] [facility] [address] [id number] [place] [address] Sep, [facility] [place] [facility] [address] [id number] [place] [address] Sep, [facility] [place] [facility] [address] [id number] [place] [address] Aug, [facility] [place] [facility] [address] [id number] [place] [address] Aug, [facility] [place] [facility] [address] [id number] [place] [address] Aug, [facility] [place] [facility] [address] [id number] [place] [address]- [address] Aug, [facility] [place] [facility] [address] [id number] [place] [address] Aug, [facility] [place] [facility] [address] [id number] [place] [address]- [address] Aug, [facility] [place] [facility] [address] [id number] [place] [address] Aug, [facility] [place] [facility] [address] [id number] [place] [address] Aug, [facility] [place] [facility] [address] [id number] [place] [address] Aug, [facility] [place] [facility] [address] [id number] [place] [address] Aug, [facility] [place] [facility] [address] [id number] [place] [address] Aug, [facility] [place] [facility] [address] [id number] [place] [address] Aug, [facility] [place] [facility] [address] [id number] [place] [address]- [address] 28 Jul, 2012 [facility] [place] [facility] [address] [id number] [place] [address] 27 Jul, 2012 [facility] [place] [facility] [address] [id number] [place] [address] 21 Jul, 2012 [facility] [place] [facility] [address] [id number] [place] [address] 10 Jul, 2012 [facility] [place] [facility] [address] [id number], [place] [address] 05 Jul, 2012 [facility] [place] [facility] [address] [id number], [place] [address] Jul, [facility] [place] [facility] [address] [id number], [place] [address] Jun, [facility] [place] [facility] [address] [id number] [place] [address] Jun, [facility] [place] [facility] [address] [id number] [place] [address] Jun, [facility] [place] [facility] [address] [id number], [place] [address] May, [facility] [place] [facility] [address] [id number], [place] [address] 25 May, 2012 [facility] [address] [id number] [place] [address] 14 May, 2012 [facility] [place] [facility] [address] [id number] [place] [address] 09 May, 2012 [facility] [place] [facility] [address] [id number] [place] [address] 06 May, 2012 [facility] [place] [facility] [address] [id number] [place] [address] 05 May, 2012 [facility] [place] [facility] [address] [id number] [place] [address] 30 Apr, 2012 [facility] [place] [facility] [address] [id number] [place] [address] 23 Feb, 2012 [facility] [id number] [place] [address] 18 Feb, 2012 [facility] [place] [facility] [address] [id number] [place] [address] 1453 11 Feb, 2012 [facility] [place] [facility] [address] [id number] [place] [address] 5490 10 Feb, 2012 [facility] [place] [facility] [address] [id number] [place] [address] 16 Jan, 2012 [facility] [place] [facility] [address] [id number] [place] [address] Jan, [facility] [place] [facility] [address] [id number] [place] [address] 29 Dec, 2011 [facility] [place] [facility] [address] [id number] [place] [address] 28 Dec, 2011 [facility] [place] [facility] [address] [id number] [place] [address] 6826 21 Dec, 2011 [facility] [place] [facility] [address] [id number] [place] [address]881 14 Dec, 2011 [facility] [place] [facility] [address] [id number] [place] [address] 6415 14 Dec, 2011 [facility] [place] [facility] [address] [id number] [place] [address] 6916 13 Dec, 2011 [facility] [place] [facility] [address] [id number] [place] [address] 09 Dec, 2011 [facility] [place] [facility] [address] [id number] [place] [address]296 Dec, [facility] [place] [facility] [address] [id number] [place] [address] 6098 Dec, [facility] [place] [facility] [address] [id number] [place] [address] Nov, [facility] [place] [facility] [address] [id number] [place] [address] Nov, [facility] [place] [facility] [address] [id number] [place] [address] 9157 Nov, [facility] [place] [facility] [address] [id number] [place] [address]- 1481 Nov, [facility] [place] [facility] [address] [id number] [place] [address] Nov, [facility] [place] [facility] [address] [id number] [place] [address] Nov, [facility] [place] [facility] [address] [id number] [place] [address] 1667 Nov, [facility] [place] [facility] [address] [id number] [place] [address] 6968 Nov, [facility] [place] [facility] [address] [id number] [place] [address] 8366 Nov, [facility] [place] [facility] [address] [id number] [place] [address] 0028 Oct, [facility] [place] [facility] [address] [id number], [place] [address] Oct, [facility] [place] [facility] [address] [id number] [place] [address] Oct, [facility] [place] [facility] [address] [id number], [place] [address] Oct, [facility] [place] [facility] [address] [id number] [place] [address]- 4652 Oct, [facility] [place] [facility] [address] [id number] [place] [address] 4460 Oct, [facility] [place] [facility] [id number] [place] [address], [place] [address] Sep, [facility] [place] [facility] [address] [id number] [place] [address] 8886 Aug, [facility] [address] [id number], [place] [address] Jul, [facility] [place] [facility] [address] [id number], [place] [address] Nov, [facility] [place] [facility] [address] [id number], [place] [address] Nov, [facility] [place] [facility] [address] [id number], [place] [address] Oct, [facility] [place] [facility] [address] [id number], [place] [address] Sep, [facility] [place] [facility] [address] [id number], [place] [address]- 1687 Sep, [facility] [place] [facility] [address] [id number], [place] [address] 17[address] 18 Aug, 2010 [facility] [place] [facility] [address] [id number], [place] [address]- 4293 14 Aug, 2010 [facility] [place] [facility] [address] [id number], [place] [address] 5161 14 Aug, 2010 [facility] [place] [facility] [id number] [address] [address] Feb, [facility] [id number], [place] [address] Dec, [facility] [id number] [address] Oct, [facility] [id number] Oct, [facility] [id number], [place] [address] Oct, [facility] [id number] [place] [address] Sep, [facility] [id number] [place] [address] Sep, [facility] [id number], [place] [address] 16[address] Sep, [facility] [id number], [place] [address] Aug, [facility] [id number], [place] [address] Aug, IMMUNIZATIONS No Known Immunizations SOCIAL HISTORY Never Assessed REASON FOR VISIT Requests return call PLAN OF CARE VITAL SIGNS MEDICATIONS Unknown Medications RESULTS No Results PROCEDURES No Known procedures [...] Medical History Bulimia Medical History Dental caries Medical History Seizure Surgical History colonoscopy 2006 Surgical History removed tubes 2004 Surgical History EGD Hospitalization History mental health issues x2 [facility] [place] 2016 & 02/2017 Hospitalization History Surgery(s)/Childbirth(s)
--- OUTSIDE RECORDS SUMMARY | 2018-08-03 08:15 | XMS REPORT ---
Author Author ESPERANZA LUCI Organization [facility] Address [address] [place] [address] Care Team Providers Care Hands Hanger Name Role Phone LUCI MATA Unavailable PROBLEMS Type Condition ICD9-CM Code OFE83-EG Code Onset Dates Condition Status SNOMED Code Problem Anxiety F41.9 Active 13036818 Problem Severe episode of recurrent major depressive disorder, with psychotic features F33.3 Active 42125460 Problem PTSD (post-traumatic stress disorder) F43.10 Active 66482872 Problem Borderline personality disorder F60.3 Active 37586167 Problem Night terror F51.4 Active 67410198 Problem Cannabis use disorder, mild, abuse F12.10 Active 84035391 Problem Sciatica, unspecified side M54.30 Active 94978531 Problem Adjustment disorder with mixed anxiety and depressed mood F43.23 Active 78977495 Problem Mood disorder F39 Active 58302568 Problem Schizo affective schizophrenia F25.0 Active 193995326 Problem Bipolar 1 disorder F31.9 Active 053155429 ALLERGIES Substance Reaction Event Type Date Status Pseudoephedrine HCl ER unknown Drug Allergy Jul, Active Phenytoin rash Drug Allergy Jul, Active Penicillamine anaphylaxis Drug Allergy Jul, Active Cephalexin anaphylaxis Drug Allergy Jul, Active Albuterol unknown Drug Allergy Jul, Active ENCOUNTERS Encounter Location Date Diagnosis [facility] [id number] [address] March, [facility] [id number] [address] March, [facility] [address] [address] Feb, [facility] [id number] [address] Feb, [facility] [id number] [address] 19 Feb, 2018 Breast cancer screening Z12.31 [place] [id number] [place] [address] 58480- 4795 Feb, Mood disorder F39 and PTSD (post-traumatic stress disorder) F43.10 [id number] [place] [address] 37701- 5515 Feb, PTSD (post-traumatic stress disorder) F43.10 ; Mood disorder F39 ; Borderline personality disorder F60.3 and Cannabis use disorder, mild, abuse F12.10 [place] [id number] [place] [address] 50781- 0109 Feb, Schizo affective schizophrenia F25.0 ; Adjustment disorder with mixed anxiety and depressed mood F43.23 ; Night terror F51.4 ; Anxiety F41.9 and Borderline personality disorder F60.3 [place] [id number] [place] [address] 30190- 3277 Feb, [place] [id number] [place] [address] 59900- 8612 Feb, Mood disorder F39 [place] [id number] [place] [address] 76454- 5755 Feb, Annual physical exam Z00.00 ; BMI 40.0-44.9, adult Z68.41 and Nipple discharge N64.52 [place] [id number] [place] [address] 62375- 4394 Jan, Schizo affective schizophrenia F25.0 ; Adjustment disorder with mixed anxiety and depressed mood F43.23 ; Night terror F51.4 ; Anxiety F41.9 and Borderline personality disorder F60.3 [place] [id number] [place] [address] 28215- 1560 Jan, Mood disorder F39 ; PTSD (post-traumatic stress disorder) F43.10 ; Borderline personality disorder F60.3 and High risk medication use Z79.899 [facility] [id number] [place] [address] 59090- 3694 Dec, Anxiety F41.9 and Borderline personality disorder F60.3 [facility] [id number] [place] [address] 51550- 1856 Dec, [facility] [id number] [place] [address] 27258- 7716 Dec, Anxiety F41.9 and Borderline personality disorder F60.3 [facility] [id number] [place] [address] 61431- 7846 Dec, [facility] [id number] [place] [address] 02883- 2486 Dec, [facility] [id number] [place] [address] 85409- 7786 Nov, Acute non-recurrent maxillary sinusitis J01.00 ; Mood disorder F39 and Sciatica, unspecified side M54.30 [facility] [id number] [place] [address] 73813- 5629 Nov, Mood disorder F39 ; PTSD (post-traumatic stress disorder) F43.10 and Borderline personality disorder F60.3 [facility] [id number] [place] [address] 42344- 0640 Nov, Anxiety F41.9 and Borderline personality disorder F60.3 [facility] [id number] [place] [address] 96128 2546 Nov, [facility] [id number] [place] [address] 99275- 2839 Nov, Anxiety F41.9 and Sciatica, unspecified side M54.30 [facility] [id number] [place] [address] 11611- 6556 Oct, Anxiety F41.9 [facility] [id number] [place] [address] 40360 2546 Oct, Mood disorder F39 ; PTSD (post-traumatic stress disorder) F43.10 ; Borderline personality disorder F60.3 and High risk medication use Z79.899 [facility] [address] [id number] 11 Oct, 2017 Dental caries K02.9 and Dental examination Z01.20 [facility] [address], [place] [address] 13 Sep, 2017 Dysuria R30.0 and Abdominal pain, right lower quadrant R10.31 [facility] [id number] [place] [address] 25582- 4221 Aug, Mood disorder F39 ; PTSD (post-traumatic stress disorder) F43.10 and Borderline personality disorder F60.3 [facility] [address] [address] 7525 Aug, [facility] [id number] [place] [address] 95827- 2818 Aug, [facility] [id number] [place] [address] 24140- 4323 Aug, Severe episode of recurrent major depressive disorder, with psychotic features F33.3 ; PTSD (post-traumatic stress disorder) F43.10 ; Adjustment disorder with mixed anxiety and depressed mood F43.23 and Borderline personality disorder F60.3 [facility] [address], [place] [address]- 4228 Aug, Mood disorder F39 ; PTSD (post-traumatic stress disorder) F43.10 and Borderline personality disorder F60.3 [facility] [address] [address] Aug, [facility] [id number] [place] [address] 54259- 0183 Aug, Bipolar 1 disorder F31.9 and Schizo affective schizophrenia F25.0 [facility] [address], [place] [address] 7583 Aug, Mood disorder F39 [facility] [address], [place] [address]- 3064 Aug, Bipolar 1 disorder F31.9 and Schizo affective schizophrenia F25.0 [facility] [address] [address] 3116 Aug, Bipolar 1 disorder F31.9 and Schizo affective schizophrenia F25.0 [facility] [id number] [place] [address] 21428- 0781 Aug, [facility] [id number] [place] [address] 71448- 0417 Aug, PTSD (post-traumatic stress disorder) F43.10 and Borderline personality disorder F60.3 [facility] [id number] [place] [address] 80980- 9591 Aug, [facility] [id number] [place] [address] 33897- 3770 Aug, Mood disorder F39 ; PTSD (post-traumatic stress disorder) F43.10 ; Borderline personality disorder F60.3 and Adjustment disorder with mixed anxiety and depressed mood F43.23 [facility] [id number] [place] [address] 26624- 9680 Jul, [facility] [address], [place] [address]- 9364 Jul, Mood disorder F39 ; PTSD (post-traumatic stress disorder) F43.10 and Borderline personality disorder F60.3 [facility] [address], [place] [address]- 3507 Jul, [facility] [id number] [place] [address] 62883- 1511 Jun, Anxiety F41.9 ; ADHD (attention deficit hyperactivity disorder) F90.9 ; Night terror F51.4 ; Bulimia F50.2 ; Severe episode of recurrent major depressive disorder, with psychotic features F33.3 and PTSD ( post-traumatic stress disorder) F43.10 [facility] [id number] [place] [address] 75758- 3969 Jun, Borderline personality disorder F60.3 ; Mood disorder F39 and PTSD (post-traumatic stress disorder) F43.10 [facility] [id number] [place] [address] 14042- 2833 Jun, Anxiety F41.9 [facility] [id number] [place] [address] 51118- 8485 Jun, Anxiety F41.9 ; ADHD (attention deficit hyperactivity disorder) F90.9 ; Night terror F51.4 ; Bulimia F50.2 ; Severe episode of recurrent major depressive disorder, with psychotic features F33.3 and PTSD ( post-traumatic stress disorder) F43.10 [facility] [id number] [place] [address] 67137- 9847 Jun, ADHD (attention deficit hyperactivity disorder) F90.9 ; Night terror F51.4 ; Bulimia F50.2 ; Anxiety F41.9 ; Severe episode of recurrent major depressive disorder, with psychotic features F33.3 and PTSD ( post-traumatic stress disorder) F43.10 [place] [id number] [place] [address] 31291- 3105 May, Anxiety F41.9 [facility] [id number] [place] [address] 49163- 8577 May, PTSD (post-traumatic stress disorder) F43.10 and Borderline personality disorder F60.3 [facility] [address] [address]- 7190 Apr, [facility] [id number] [place] [address] [id number] March, Dental examination Z01.20 and Dental caries K02.9 [facility] [id number] [place] [address] 65391- 9732 March, Dental examination Z01.20 [facility] [id number] [place] [address] 02376- 2839 March, Tooth abscess K04.7 and Tooth pain K08.89 [facility] [id number] [place] [address] 21967- 5244 March, Borderline personality disorder F60.3 [facility] [id number] [place] [address] 89217- 4593 March, ADHD (attention deficit hyperactivity disorder) F90.9 ; Night terror F51.4 ; Bulimia F50.2 and Anxiety F41.9 [facility] [id number] [place] [address] 92625- 7235 Feb, Borderline personality disorder F60.3 ; ADHD (attention deficit hyperactivity disorder) F90.9 ; Anxiety F41.9 ; Bulimia F50.2 ; Obsessive-compulsive disorder, unspecified type F42.9 and Night terror F51.4 [facility] [id number] [place] [address] 18546- 7476 Feb, [facility] [id number] [place] [address] 62736- 7628 Feb, [facility] [id number] [place] [address] 11814- 9293 Jul, [facility] [id number] [place] [address] 25000- 1747 Jul, [facility] [id number] [place] [address] 22359- 9332 Jul, [facility] [id number] [place] [address] 96768- 1868 Jul, [facility] [id number] [place] [address] 18009- 1492 Jun, [facility] [id number] [place] [address] 49158- 3712 Jun, [facility] [id number] [place] [address] 22960- 0904 Jun, [facility] [place] [facility] [address] [id number] [place] [address]- 3503 Jun, [facility] [place] [facility] [address] [id number] [place] [address]- 8621 Apr, [facility] [place] [facility] [address] [id number] [place] 7435 Apr, [facility] [place] [facility] [address] [id number] [place] [address]- 3720 March, [facility] [place] [facility] [address] [id number] [place] [address]- 1271 March, [facility] [place] [facility] [address] [id number] [place] [address]- 5481 Jan, [facility] [place] [facility] [address] [id number] [place] [address]- 4422 Jan, [facility] [place] [facility] [address] [id number] [place] [address]- 7204 Jan, [facility] [place] [facility] [address] [id number] [place] [address]- 1995 Jan, [facility] [place] [facility] [address] [id number] [place] [address]- 1596 Jan, [facility] [place] [facility] [address] [id number] [place] [address]- 6613 Dec, [facility] [place] [facility] [address] [id number] [place] [address]- 0872 Dec, [facility] [place] [facility] [address] [id number] [place] [address]- 3842 Oct, [facility] [place] [facility] [address] [id number] [place] [address]- 7655 Oct, [facility] [place] [facility] [address] [id number] [place] [address]- 3217 Oct, [facility] [place] [facility] [address] [id number] [place] [address]- 5273 Oct, [facility] [place] [facility] [address] [id number] [place] [address]- 5017 Sep, [facility] [place] [facility] [address] [id number] [place] 5936 Sep, [facility] [place] [facility] [address] [id number] [place] [address]- 3457 Sep, [facility] [place] [facility] [address] [id number] [place] [address]- 9046 Aug, [facility] [place] [facility] [address] [id number] [place] 6809 Aug, [facility] [place] [facility] [address] [id number] [place] [address]- 8844 Aug, [facility] [place] [facility] [address] [id number] [place] [address]- 9766 Aug, [facility] [place] [facility] [address] [id number] [place] [address]- 9294 Aug, [facility] [place] [facility] [address] [id number] [place] [address]- 5731 Aug, [facility] [place] [facility] [address] [id number] [place] [address]- 8083 Aug, [facility] [place] [facility] [address] [id number] [place] [address]- 5548 Jul, [facility] [place] [facility] [address] [id number] [place] [address]- 6116 Jun, [facility] [place] [facility] [address] [id number] [place] [address]- 0582 Jun, [facility] [place] [facility] [address] [id number] [place] [address]- 2086 Jun, [facility] [place] [facility] [address] [id number] [place] [address]- 1011 Jun, [facility] [place] [facility] [address] [id number] [place] [address]- 4374 Jun, [facility] [address] [id number] [place] [address]- 0840 Jun, [facility] [address] [id number] [place] [address]- 2959 May, [facility] [address] [id number] [place] [address]- 9352 May, [facility] [address] [id number] [place] [address]- 5683 May, [facility] [address] [id number] [place] [address]- 7017 May, [facility] [address] [id number] [place] [address]- 6085 March, [facility] [address] [id number] [place] [address]- 1448 March, [facility] [address] [id number] [place] [address]- 1134 March, [facility] [address] [id number] [place] [address]- 7415 Feb, [facility] [address] [id number] [place] [address]- 3070 Feb, [facility] [address] [id number] [place] [address]- 6874 Feb, [facility] [address] [id number] [place] [address]- 8295 Feb, [facility] [place] [facility] [address] [id number] [place] [address]- 2988 Jan, [facility] [address] [id number] [place] [address]- 4362 Jan, [facility] [address] [id number] [place] [address]- 4076 Jan, [facility] [address] [id number] [place] [address]- 2786 Dec, [facility] [address] [id number] [place] [address]- 6476 14 Dec, 2012 [facility] [address] [id number] [place] [address]- 7826 Dec, [facility] [address] [id number] [place] [address]- 4926 05 Dec, 2012 [facility] [address] [id number] [place] [address]- 2286 Dec, [facility] [address] [id number] [place] [address]- 0016 Nov, [facility] [address] [id number] [place] [address]- 0238 Nov, [facility] [address] [id number] [place] [address]- 3923 Nov, [facility] [address] [id number] [place] [address]- 0797 Nov, [facility] [address] [id number] [place] [address]- 6174 Oct, [facility] [address] [id number] [place] [address]- 5656 Oct, [facility] [address] [id number] [place] [address] 2546 Oct, [facility] [address] [id number] [place] [address] 2546 Oct, [facility] [address] [id number] [place] [address]- 1006 Oct, [facility] [address] [id number] [place] [address]- 8605 Oct, [facility] [place] [facility] [address] [id number] [place] [address]- 3869 Oct, [facility] [place] [facility] [address] [id number] [place] [address]- 7906 Oct, [facility] [place] [facility] [address] [id number] [place] [address]- 3576 Oct, [facility] [place] [facility] [address] [id number] [place] [address]- 3666 Oct, [facility] [place] [facility] [address] [id number] [place] [address]- 0476 Oct, [facility] [place] [facility] [address] [id number] [place] [address]- 7724 Oct, [facility] [place] [facility] [address] [id number] [place] [address]- 7311 Oct, [facility] [place] [facility] [address] [id number] [place] [address]- 5298 Sep, [facility] [place] [facility] [address] [id number] [place] [address]- 3827 Sep, [facility] [place] [facility] [address] [id number] [place] [address]- 6880 Sep, [facility] [place] [facility] [address] [id number] [place] [address]- 9035 Sep, [facility] [place] [facility] [address] [id number] [place] [address]- 9400 Sep, [facility] [place] [facility] [address] [id number] [place] [address]- 5920 Sep, [facility] [place] [facility] [address] [id number] [place] [address]- 1032 Sep, [facility] [place] [facility] [address] [id number] [place] [address]- 9158 Sep, [facility] [place] [facility] [address] [id number] [place] [address]- 0985 Sep, [facility] [place] [facility] [address] [id number] [place] [address]- 4877 Sep, [facility] [place] [facility] [address] [id number] [place] [address]- 7793 Sep, [facility] [place] [facility] [address] [facility] [id number] [place] [address]- 4514 Sep, [facility] [place] [facility] [address] [id number] [place] [address]- 9932 Aug, [facility] [place] [facility] [address] [id number] [place] 7468 Aug, [facility] [place] [facility] [address] [id number] [address]- 9836 Aug, [facility] [place] [facility] [address] [id number], [place] [address]- 9118 Aug, [facility] [place] [facility] [address] [id number] [address] Aug, [facility] [place] [facility] [address] [id number], [place] [address] Aug, [facility] [place] [facility] [address] [facility] [id number], [place] [address] Aug, [facility] [place] [facility] [address] [id number], [place] [address] Aug, [facility] [place] [facility] [address] [id number], [place] [address] Aug, [facility] [place] [facility] [address] [id number] [address] Aug, [facility] [place] [facility] [address] [facility] [id number] [address] Aug, [facility] [place] [facility] [address] [facility] [id number] [address] Aug, [facility] [place] [facility] [address] [id number] [place] [address] 28 Jul, 2011 [facility] [address] [id number] [place] [address] 27 Jul, 2011 [facility] [place] [facility] [address] [id number] [place] [address] 21 Jul, 2011 [facility] [place] [facility] [address] [id number] [place] [address] 10 Jul, 2011 [facility] [place] [facility] [address] [id number] [place] [address]47 05 Jul, 2011 [facility] [place] [facility] [address] [id number] [place] [address]- [address] 04 Jul, 2012 [facility] [place] [facility] [address] [id number] [place] [address] Jun, [facility] [place] [facility] [address] [id number] [place] [address] Jun, [facility] [address] [id number] [place] [address] Jun, [facility] [place] [facility] [address] [id number] [place] [address] May, [facility] [address] [id number] [place] [address] May, [facility] [place] [facility] [address] [id number] [place] [address] 2546 14 May, 2012 [facility] [place] [facility] [address] [id number] [place] [address]- [address] May, [facility] [place] [facility] [address] [id number] [place] [address]- [address] May, [facility] [place] [facility] [address] [id number] [place] [address]- 1716 May, [facility] [place] [facility] [address] [id number] [place] [address] Apr, [facility] [place] [facility] [address] [id number] [place] [address] 23 Feb, 2012 [facility] [place] [facility] [address] [id number] [place] [address] 18 Feb, 2012 [facility] [place] [facility] [address] [id number] [place] [address]- 4076 11 Feb, 2012 [facility] [place] [facility] [address] [id number] [place] [address] 10 Feb, 2012 [facility] [place] [facility] [address] [id number] [place] [address] 16 Jan, 2012 [facility] [place] [facility] [address] [id number] [place] [address]- [address] 12 Jan, 2012 [facility] [place] [facility] [address] [id number] [place] [address] 29 Dec, 2011 [facility] [place] [facility] [address] [id number] [place] [address]- [address] 28 Dec, 2011 [facility] [place] [facility] [address] [id number] [place] [address]- [address] 21 Dec, 2011 [facility] [place] [facility] [address] [id number] [place] [address] 14 Dec, 2011 [facility] [place] [facility] [address] [id number] [place] [address] 14 Dec, 2011 [facility] [place] [facility] [address] [id number] [place] [address]- 9066 13 Dec, 2011 [facility] [place] [facility] [address] [id number] [place] [address] 09 Dec, 2011 [facility] [place] [facility] [address] [facility] [id number] [place] [address] 07 Dec, 2011 [facility] [facility] [address] [id number] [address] 02 Dec, 2011 [facility] [place] [facility] [address] [id number] [place] [address] 30 Nov, 2011 [facility] [address] [id number] [place] [address] Nov, [facility] [address] [id number] [place] [address] 24 Nov, 2011 [facility] [address] [id number] [place] [address] Nov, [facility] [address] [id number] [place] [address] 17 Nov, 2011 [facility] [address] [id number] [place] [address] 16 Nov, 2011 [facility] [address] [id number] [place] [address] Nov, [facility] [address] [id number] [place] [address] Nov, [facility] [address] [id number] [place] [address] Nov, [facility] [address] [id number] [place] [address] Oct, [facility] [address] [id number] [place] [address] Oct, [facility] [address] [id number] [place] [address] Oct, [facility] [address] [id number] [place] [address] Oct, [facility] [address] [id number] [place] [address] Oct, [facility] [address] [id number] [place] [address] Oct, [facility] [address] [id number] [place] [address] Sep, [facility] [address] [id number] [place] [address] 19 Aug, 2011 [facility] [place] [facility] [address] [id number] [place] [address] 19 Jul, 2011 [facility] [place] [facility] [address] [id number] [place] [address] 17 Nov, 2010 [facility] [place] [facility] [address] [id number] [place] [address] Nov, [facility] [place] [facility] [address] [id number] [place] [address] Oct, [facility] [place] [facility] [address] [id number] [place] [address] Sep, [facility] [place] [facility] [address] [id number] [place] [address] Sep, [facility] [place] [facility] [address] [id number] [place] [address] 18 Aug, 2010 [facility] [place] [facility] [address] [id number] [place] [address] 14 Aug, 2010 [facility] [place] [facility] [address] [facility] [id number] [address] 14 Aug, 2010 [facility] [address] [id number][place] [address] Feb, [facility] [place] [facility] [address] [id number], [place] [address] 10 Dec, 2009 [facility] [place] [facility] [address] [id number] [place] [address] 30 Oct, 2009 [facility] [place] [address] [id number], [place] [address] Oct, [facility] [address] [facility] [id number], [place] [address] 08 Oct, 2009 [facility] [address] [id number][place] [address] Sep, [facility] [address] [facility] [id number][place] [address] Sep, [facility] [address] [facility] [id number], [place] [address] Sep, [facility] [address] [facility] [id number], [place] [address] Aug, [facility] [address] [facility] [id number], [place] [address] Aug, IMMUNIZATIONS No Known Immunizations SOCIAL HISTORY Never Assessed REASON FOR VISIT f/u Jimena PLAN OF CARE Activity Details Follow Up 6 Weeks Reason: VITAL SIGNS Height 63 in 2017-08-09 Weight 227.0 lbs 2017-08-09 Heart Rate 96 bpm 2017-08-09 Respiratory Rate 20 2017-08-09 BMI 40.21 kg/m2 2017-08-09 Blood pressure systolic 140 mmHg 2017-08-09 Blood pressure diastolic 88 mmHg 2017-08-09 MEDICATIONS Medication Instructions Dosage Frequency Start Date End Date Duration Status Seroquel 50 MG Orally Twice a day (morning and afternoon) 1 tablet Active Gabapentin 600 MG TAKE ONE TABLET BY MOUTH THREE TIMES DAILY Active Klonopin 1 MG Orally Twice a day 1 tablet 12h May, Active [place]ust Carbonate 300 MG Orally 2 times a day 1 capsule 12h Active Quetiapine Fumarate 300 MG TAKE ONE TABLET BY MOUTH ONCE DAILY AT BEDTIME Active Desvenlafaxine Succinate ER 50 mg Orally Once a day in am 1 tablet Active Minipress 1 MG 4 cap Active RESULTS No Results PROCEDURES No Known [...] EGD Hospitalization History mental health issues x2 [facility] [place] 2016 & 02/2017 Hospitalization History Surgery(s)/Childbirth(s)
--- OUTSIDE RECORDS SUMMARY | 2018-08-03 08:16 | XMS REPORT ---
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[employer] Name Role Phone RACHAEL CHEATHAM Unavailable PROBLEMS Type Condition ICD9-CM Code [id number] Code Onset Dates Condition Status SNOMED Code Problem Adjustment disorder with mixed anxiety and depressed mood F43.23 Active 24502057 Problem Bipolar 1 disorder F31.9 Active 378743704 Problem Schizo affective schizophrenia F25.0 Active 462531832 Problem Dysmenorrhea N94.6 Active 172628384 Problem Morbid obesity due to excess calories E66.01 Active 856377736 Problem Cannabis use disorder, mild, abuse F12.10 Active 69812505 Problem Sciatica, unspecified side M54.30 Active 69500347 Problem Other chronic pain G89.29 Active 92029536 Problem Lumbago with sciatica, right side M54.41 Active 133902028 Problem Anxiety F41.9 Active 89342866 Problem PTSD (post-traumatic stress disorder) F43.10 Active 49187864 Problem Borderline personality disorder F60.3 Active 74050095 Problem Severe episode of recurrent major depressive disorder, with psychotic features F33.3 Active 14799420 Problem Night terror F51.4 Active 26302158 Problem Mood disorder F39 Active 98077130 ALLERGIES Substance Reaction Event Type Date Status Pseudoephedrine HCl ER unknown Drug Allergy Jun, Active Phenytoin rash Drug Allergy Jun, Active Penicillamine anaphylaxis Drug Allergy Jun, Active Cephalexin anaphylaxis Drug Allergy Jun, Active Albuterol unknown Drug Allergy Jun, Active ENCOUNTERS Encounter Location Date Diagnosis [facility] [address] [facility] [id number] [address] Aug, [facility] [address] [facility] [id number] [address] 11 Jul, 2018 Anxiety F41.9 and Skin tags, multiple acquired L91.8 [place] [id number] [place] [address] 81950- 0827 Jul, BMI 45.0-49.9, adult Z68.42 ; Anxiety F41.9 ; Acute pain of left foot M79.672 and Acute swimmer''s ear of right side H60.331 [place] [address] [address]- [address] Jun, [place] [address] [address]- 8904 Jun, PTSD (post-traumatic stress disorder) F43.10 ; Mood disorder F39 ; Borderline personality disorder F60.3 and Cannabis use disorder, mild, abuse F12.10 [place] [address] 70019- 5767 Jun, [place] [address] 87728- 5942 Jun, PTSD (post-traumatic stress disorder) F43.10 [place] [address] 97181- 0430 Jun, [place] adverse reaction T43.595A and Sprain of anterior talofibular ligament of left ankle, initial encounter S93.492A [place] [id number] [place] [address] 00109- 9761 Jun, [place] [address] 40754- 1859 May, [place] [address] 93998- 5459 May, Skin tags, multiple acquired L91.8 ; Dysmenorrhea N94.6 and Acute non-recurrent maxillary sinusitis J01.00 [place] [id number] [place] [address] 81661- 4982 May, PTSD (post-traumatic stress disorder) F43.10 [place] [address] [place] [address]- 98[address] May, 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 [place] [id number] [place] [address] 52286- 9855 May, PTSD (post-traumatic stress disorder) F43.10 ; Mood disorder F39 ; Borderline personality disorder F60.3 and Cannabis use disorder, mild, abuse F12.10 [place] [id number] [place] [address] 24059- 5797 May, BMI 40.0-44.9, adult Z68.41 [place] [address] 53627- 9368 18 Apr, 2018 BMI 40.0-44.9, adult Z68.41 [place] [id number] [place] [address] 85049- 5840 14 Apr, 2018 Acute non-recurrent maxillary sinusitis J01.00 [place] [address] [id number] [place] [address] 05733- 1791 Apr, PTSD (post-traumatic stress disorder) F43.10 ; Mood disorder F39 ; Borderline personality disorder F60.3 ; Cannabis use disorder, mild, abuse F12.10 and [facility] 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 [place] [id number] [place] [address] 92530- 4064 08 Apr, 2018 [place] [address] [id number] [place] [address] 66985- 7302 Apr, Annual physical exam Z00.00 and High risk medication use Z79.899 [place] [address] [id number] [place] [address] 96105- 4678 Apr, PTSD (post-traumatic stress disorder) F43.10 [place] [address] [id number] [place] [address] 74486- 0147 Apr, [place] [address] [id number] [place] [address] 05973- 6440 March, BMI 40.0-44.9, adult Z68.41 ; Morbid obesity due to excess calories E66.01 ; Lumbago with sciatica, right side M54.41 and Other chronic pain G89.29 [facility] [address] [place] [address] 34359- 4376 March, PTSD (post-traumatic stress disorder) F43.10 [facility] [address] [id number] [place] [address] 78477- 6032 March, PTSD (post-traumatic stress disorder) F43.10 ; Mood disorder F39 ; Borderline personality disorder F60.3 and Cannabis use disorder, mild, abuse F12.10 [place] [address] [id number] [place] [address] 49207- 0973 Feb, [place] [address] [id number] [place] [address] 27056- 3676 Feb, [facility] [address] [place] [address] Feb, Breast cancer screening Z12.31 [place] [address] [id number] [place] [address] 20113- 9666 Feb, Mood disorder F39 and PTSD (post-traumatic stress disorder) F43.10 [place] [address] [address] 0460 Feb, PTSD (post-traumatic stress disorder) F43.10 ; Mood disorder F39 ; Borderline personality disorder F60.3 and Cannabis use disorder, mild, abuse F12.10 [facility] [address] [address] Feb, Schizo affective schizophrenia F25.0 ; Adjustment disorder with mixed anxiety and depressed mood F43.23 ; Night terror F51.4 ; Anxiety F41.9 and Borderline personality disorder F60.3 [facility] [address] [address] 6[address] Feb, [facility] [address] [address]60- 0702 Feb, Mood disorder F39 [place] [address] 23538- 2122 Feb, Annual physical exam Z00.00 ; BMI 40.0-44.9, adult Z68.41 and Nipple discharge N64.52 [place] [address] 58[address]- 1620 Jan, Schizo affective schizophrenia F25.0 ; Adjustment disorder with mixed anxiety and depressed mood F43.23 ; Night terror F51.4 ; Anxiety F41.9 and Borderline personality disorder F60.3 [place] [address] 67882- 8691 Jan, Mood disorder F39 ; PTSD (post-traumatic stress disorder) F43.10 ; Borderline personality disorder F60.3 and High risk medication use Z79.899 [place] [address] 32202- 8123 Dec, Anxiety F41.9 and Borderline personality disorder F60.3 [place] [address] 38086- 1636 Dec, [place] [address] 78256- 2626 Dec, Anxiety F41.9 and Borderline personality disorder F60.3 [place] [address] 43938- 4410 Dec, [place] [address] 02294- 9215 Dec, [place] [address] [place] [id number]- 3887 Nov, Acute non-recurrent maxillary sinusitis J01.00 ; Mood disorder F39 and Sciatica, unspecified side M54.30 [place] [address] 19150- 0329 Nov, Mood disorder F39 ; PTSD (post-traumatic stress disorder) F43.10 and Borderline personality disorder F60.3 [facility] [address] [id number] [place] [address] 13064- 4009 Nov, Anxiety F41.9 and Borderline personality disorder F60.3 [facility] [address] [id number] [place] [address] 41972- 5194 Nov, [facility] [address] [id number] [place] [address] 92238- 9940 Nov, Anxiety F41.9 and Sciatica, unspecified side M54.30 [place] [address] [id number] [place] [address] 24988- 9053 Oct, Anxiety F41.9 [place] [address] [id number] [place] [address] 16176- 4321 Oct, Mood disorder F39 ; PTSD (post-traumatic stress disorder) F43.10 ; Borderline personality disorder F60.3 and High risk medication use Z79.899 [facility] [address] [id number] Oct, Dental caries K02.9 and Dental examination Z01.20 [place] [address] [id number] [place] [address] 30388- 9613 13 Sep, 2017 Dysuria R30.0 and Abdominal pain, right lower quadrant R10.31 [facility] [address] [id number] [place] [address] 57780- 3583 Aug, Mood disorder F39 ; PTSD (post-traumatic stress disorder) F43.10 and Borderline personality disorder F60.3 [facility] [address] 65055- 3207 Aug, [facility] [address] [id number] [place] [address] 77572- 1715 Aug, [facility] [address] 32443- 5879 Aug, Severe episode of recurrent major depressive disorder, with psychotic features F33.3 ; PTSD (post-traumatic stress disorder) F43.10 ; Adjustment disorder with mixed anxiety and depressed mood F43.23 and Borderline personality disorder F60.3 [facility] [address] [address]- 3556 Aug, Mood disorder F39 ; PTSD (post-traumatic stress disorder) F43.10 and Borderline personality disorder F60.3 [facility] [address] [id number] [place] [address] 30061- 3834 Aug, [facility] [address] [place] [id number] [place] [address] 058785- 7671 Aug, Bipolar 1 disorder F31.9 and Schizo affective schizophrenia F25.0 [facility] [address] [id number] [place] [address] 33067- 2534 Aug, Mood disorder F39 [facility] [address] [id number] [place] [address] 37512- 9579 Aug, Bipolar 1 disorder F31.9 and Schizo affective schizophrenia F25.0 [facility] [address] [id number] [place] [address] 16142- 8840 Aug, Bipolar 1 disorder F31.9 and Schizo affective schizophrenia F25.0 [facility] [address] [id number] [place] [address] 13515- 4703 Aug, [facility] [address] [id number] [place] [address] 49254- 0367 Aug, PTSD (post-traumatic stress disorder) F43.10 and Borderline personality disorder F60.3 [facility] [address] [id number] [place] [address] 67497- 2815 Aug, [facility] [address] [id number] [place] [address] 95503- 3106 Aug, Mood disorder F39 ; PTSD (post-traumatic stress disorder) F43.10 ; Borderline personality disorder F60.3 and Adjustment disorder with mixed anxiety and depressed mood F43.23 [place] [address] [address]- 1368 Jul, [place] [address] [id number] [place] [address] 41976- 0179 Jul, Mood disorder F39 ; PTSD (post-traumatic stress disorder) F43.10 and Borderline personality disorder F60.3 [place] [address] [id number] [place] [address] 40221- 7934 Jul, [place] [address] [place] [address] 08735- 6173 Jun, Anxiety F41.9 ; ADHD (attention deficit hyperactivity disorder) F90.9 ; Night terror F51.4 ; Bulimia F50.2 ; Severe episode of recurrent major depressive disorder, with psychotic features F33.3 and PTSD ( post-traumatic stress disorder) F43.10 [place] [address] [place] [address] 26581- 6073 Jun, Borderline personality disorder F60.3 ; Mood disorder F39 and PTSD (post-traumatic stress disorder) F43.10 [place] [address] [place] [address] 00881- 5418 Jun, Anxiety F41.9 [place] [address] [place] [address] 50765- 4918 Jun, Anxiety F41.9 ; ADHD (attention deficit hyperactivity disorder) F90.9 ; Night terror F51.4 ; Bulimia F50.2 ; Severe episode of recurrent major depressive disorder, with psychotic features F33.3 and PTSD ( post-traumatic stress disorder) F43.10 [place] [address] [address]- 3465 Jun, ADHD (attention deficit hyperactivity disorder) F90.9 ; Night terror F51.4 ; Bulimia F50.2 ; Anxiety F41.9 ; Severe episode of recurrent major depressive disorder, with psychotic features F33.3 and PTSD ( post-traumatic stress disorder) F43.10 [facility] [address] [address]- 4663 May, Anxiety F41.9 [facility] [address] [id number] [place] [address] 38241- 6376 May, PTSD (post-traumatic stress disorder) F43.10 and Borderline personality disorder F60.3 [facility] [address] [place] [id number] [place] [address] 75740- 2467 Apr, [facility] [address] [id number] [place] [address] [id number] March, Dental examination Z01.20 and Dental caries K02.9 [place] [address] [id number] [place] [address] 02481- 2852 March, Dental examination Z01.20 [facility] [address] [place] [id number] [place] [address] 48585- 6097 March, Tooth abscess K04.7 and Tooth pain K08.89 [place] [address] [id number] [place] [address] 82717- 7010 March, Borderline personality disorder F60.3 [facility] [address] [place] [id number] [place] [address] 52433- 0526 March, ADHD (attention deficit hyperactivity disorder) F90.9 ; Night terror F51.4 ; Bulimia F50.2 and Anxiety F41.9 [facility] [address] [place] [address] 23779- 8128 Feb, Borderline personality disorder F60.3 ; ADHD (attention deficit hyperactivity disorder) F90.9 ; Anxiety F41.9 ; Bulimia F50.2 ; Obsessive-compulsive disorder, unspecified type F42.9 and Night terror F51.4 [facility] [address] [place] [address] 63629- 0463 Feb, [facility] [address] [id number] [place] [address] 17442- 4143 Feb, [facility] [place] [facility] [address] [id number] [place] [address]- 0006 Jul, [facility] [place] [facility] [address] [id number] [place] [address]- 9457 Jul, [facility] [place] [facility] [address] [id number] [place] [address]- 0984 Jul, [facility] [place] [facility] [address] [id number] [place] [address]- 1659 Jul, [facility] [place] [facility] [address] [id number] [place] [address]- 2971 Jun, [facility] [place] [facility] [address] [id number] [place] [address]- 6733 Jun, [facility] [place] [facility] [address] [id number] [place] [address]- 6980 Jun, [facility] [place] [facility] [address] [id number] [place] [address]- 8265 Jun, [facility] [place] [facility] [address] [id number] [place] [address]- 5221 Apr, [facility] [place] [facility] [address] [id number] [place] [address]- 3744 Apr, [facility] [place] [facility] [address] [id number] [place] [address]- 5845 March, [facility] [place] [facility] [address] [id number] [place] [address]- 2202 March, [facility] [place] [facility] [address] [id number] [place] [address]- 3117 Jan, [facility] [place] [facility] [address] [id number] [place] [address]- 9325 Jan, [facility] [place] [facility] [address] [id number] [place] [address]- 5823 Jan, [facility] [place] [facility] [address] [id number] [place] [address]- 3121 Jan, [facility] [place] [facility] [address] [id number] [place] [address]- 6299 Jan, [facility] [place] [facility] [address] [id number] [place] [address]- 3376 Dec, [facility] [place] [facility] [address] [id number] [place] [address]- 1236 Dec, [facility] [place] [facility] [address] [id number] [place] [address]- 2084 Oct, [facility] [place] [facility] [address] [id number] [place] [address]- 3448 Oct, [facility] [place] [facility] [address] [id number] [place] [address]- 6023 Oct, [facility] [place] [facility] [address] [id number] [place] [address]- 3690 Oct, [facility] [place] [facility] [address] [id number] [place] [address]- 5608 Sep, [facility] [place] [facility] [address] [id number] [place] [address]- 5634 Sep, [facility] [place] [facility] [address] [id number] [place] [address]- 4834 Sep, [facility] [place] [facility] [address] [id number] [place] [address]- 6997 Aug, [facility] [place] [facility] [address] [id number] [place] 6460 Aug, [facility] [place] [facility] [address] [id number] [place] [address]- 6124 Aug, [facility] [place] [facility] [address] [id number] [place] [address]- 9246 Aug, [facility] [place] [facility] [address] [id number] [place] [address]- 2329 Aug, [facility] [place] [facility] [address] [id number] [place] [address]- 2974 Aug, [facility] [place] [facility] [address] [id number] [place] [address]- 7953 Aug, [facility] [place] [facility] [address] [id number] [place] [address]- 4149 Jul, [facility] [place] [facility] [address] [id number] [place] [address]- 0912 Jun, [facility] [place] [facility] [address] [id number] [place] [address]- 1266 Jun, [facility] [place] [facility] [address] [id number] [place] [address]- 9910 Jun, [facility] [place] [facility] [address] [id number] [place] [address]- 6365 Jun, [facility] [place] [facility] [address] [id number] [place] [address]- 0204 Jun, [facility] [place] [facility] [address] [id number] [place] [address]- 0593 Jun, [facility] [place] [facility] [address] [id number] [place] [address]- 8527 May, [facility] [place] [facility] [address] [id number] [address]- 2361 May, [facility] [place] [facility] [address] [id number], [place] [address]- 0248 May, [facility] [place] [facility] [address] [id number] [place] [address]- 2165 May, [facility] [place] [facility] [address] [id number] [place] [address]- 3172 March, [facility] [place] [facility] [address] [id number] [place] [address]- 5581 March, [facility] [place] [facility] [address] [id number] [place] [address]- 0344 March, [facility] [address] [id number] [place] [address]- 9002 30 Feb, 2013 [facility] [address] [id number] [place] [address] 2546 29 Feb, 2013 [facility] [address] [id number] [place] [address]- 8039 Feb, [facility] [address] [id number] [place] [address] 2541 Feb, [facility] [address] [id number] [place] [address]- 5741 Jan, [facility] [address] [id number] [place] [address]- 4786 Jan, [facility] [address] [id number] [place] [address]- 6374 Jan, [facility] [address] [id number] [place] [address]- 8557 Dec, [facility] [address] [id number] [place] [address]- 5702 Dec, [facility] [address] [id number] [place] [address]- 5165 Dec, [facility] [address] [id number] [place] [address]- 2546 Dec, [facility] [address] [id number] [place] [address]- 2546 Dec, [facility] [place] [facility] [address] [id number] [place] [address]- 5986 Nov, [facility] [place] [facility] [address] [id number] [place] [address]- 2546 Nov, [facility] [address] [id number] [place] [address]- 7159 Nov, [facility] [address] [id number] [place] [address]- 7330 14 Nov, 2012 [facility] [place] [facility] [address] [id number] [place] [address]- 9156 Oct, [facility] [place] [facility] [address] [id number] [place] [address]- 8034 Oct, [facility] [place] [facility] [address] [id number] [place] [address]- 7937 Oct, [facility] [place] [facility] [address] [id number] [place] [address]- 9344 Oct, [facility] [place] [facility] [address] [id number] [place] [address]- 2784 Oct, [facility] [place] [facility] [address] [id number] [place] [address]- 3094 Oct, [facility] [place] [facility] [address] [id number] [place] [address]- 6250 Oct, [facility] [place] [facility] [address] [id number] [place] [address]- 4478 Oct, [facility] [place] [facility] [address] [id number] [place] [address]- 2243 Oct, [facility] [place] [facility] [address] [id number] [place] [address]- 5438 Oct, [facility] [place] [facility] [address] [id number] [place] [address]- 7844 Oct, [facility] [place] [facility] [address] [id number] [place] [address] Oct, [facility] [place] [facility] [address] [id number] [place] [address] Oct, [facility] [place] [facility] [address] [id number] [place] [address] Sep, [facility] [place] [facility] [address] [id number] [place] [address] Sep, [facility] [place] [facility] [address] [id number] [place] [address] Sep, [facility] [place] [facility] [address] [id number] [place] [address] Sep, [facility] [place] [facility] [address] [facility] [id number] [place] [address] Sep, [facility] [place] [facility] [address] [id number] [place] [address] Sep, [facility] [place] [facility] [address] [id number] [place] [address] Sep, [facility] [place] [facility] [address] [id number] [place] [address] Sep, [facility] [place] [facility] [address] [facility] [id number] [place] [address] Sep, [facility] [place] [facility] [address] [id number] [place] [address] Sep, [facility] [place] [facility] [address] [facility] [id number] [place] [address] Sep, [facility] [place] [facility] [address] [facility] [id number] [place] [address] Sep, [facility] [place] [facility] [address] [facility] [id number] [place] [address] Aug, [facility] [place] [facility] [address] [id number], [place] [address] 31 Aug, 2012 [facility] [place] [facility] [address] [id number] [place] [address] Aug, [facility] [place] [facility] [address] [facility] [id number] [place] [address] 26 Aug, 2012 [facility] [place] [facility] [address] [facility] [id number], [place] [address] 14 Aug, 2012 [facility] [place] [facility] [address] [id number] [place] [address] 14 Aug, 2012 [facility] [place] [facility] [address] [id number] [place] [address] Aug, [facility] [place] [facility] [address] [id number] [place] [address] Aug, [facility] [place] [facility] [address] [id number] [place] [address] Aug, [facility] [place] [facility] [address] [id number] [place] [address] Aug, [facility] [place] [facility] [address] [id number] [place] [address] Aug, [facility] [place] [facility] [address] [id number] [place] [address] Aug, [facility] [place] [facility] [address] [id number] [place] [address] 28 Jul, 2012 [facility] [place] [facility] [address] [id number] [place] [address]- [address] 27 Jul, 2012 [facility] [place] [facility] [address] [id number] [place] [address] 21 Jul, 2012 [facility] [facility] [address] [id number] [place] [address] 10 Jul, 2012 [facility] [place] [facility] [address] [id number] [place] [address] 05 Jul, 2012 [facility] [place] [facility] [address] [id number] [place] [address] 04 Jul, 2012 [facility] [place] [facility] [address] [id number] [place] [address] Jun, [facility] [place] [facility] [address] [id number] [place] [address] Jun, [facility] [place] [facility] [address] [id number] [place] [address] Jun, [facility] [place] [facility] [address] [id number] [place] [address] May, [facility] [place] [facility] [address] [id number] [place] [address] May, [facility] [place] [facility] [address] [id number] [place] [address] May, [facility] [place] [facility] [address] [id number] [place] [address] May, [facility] [place] [facility] [address] [id number] [place] [address] May, [facility] [place] [facility] [address] [id number] [place] [address] May, [facility] [place] [facility] [address] [id number] [place] [address] Apr, [facility] [place] [facility] [address] [id number] [place] [address] 23 Feb, 2012 [facility] [place] [facility] [address] [id number] [place] [address] 18 Feb, 2012 [facility] [place] [facility] [address] [id number] [place] [address] 96[address] 11 Feb, 2012 [facility] [place] [facility] [address] [id number] [place] [address] 8849 10 Feb, 2012 [facility] [place] [facility] [address] [id number] [place] [address] 3467 16 Jan, 2012 [facility] [place] [facility] [address] [id number] [place] [address] 1334 12 Jan, 2012 [facility] [place] [facility] [address] [id number] [place] [address] 1190 29 Dec, 2011 [facility] [place] [facility] [address] [id number] [place] [address]176 28 Dec, 2011 [facility] [place] [facility] [address] [id number] [place] [address] 6456 21 Dec, 2011 [facility] [place] [address] [id number] [place] [address] 9066 14 Dec, 2011 [facility] [address] [id number] [place] [address] 2546 14 Dec, 2011 [facility] [place] [address] [id number] [place] [address] 2546 13 Dec, 2011 [facility] [address] [id number] [place] [address]- 2541 09 Dec, 2011 [facility] [place] [address] [id number] [place] [address] 4756 07 Dec, 2011 [facility] [place] [facility] [address] [id number] [place] [address] 489[address] 02 Dec, 2011 [facility] [address] [id number] [place] [address] 8421 30 Nov, 2011 [facility] [address] [id number] [place] [address] 38[address] Nov, [facility] [address] [id number] [place] [address] 86[address] 24 Nov, 2011 [facility] [address] [id number] [place] [address] 69[address] Nov, [facility] [address] [id number] [place] [address] 17 Nov, 2011 [facility] [address] [id number] [place] [address] 6814 16 Nov, 2011 [facility] [address] [id number] [place] [address]- 2806 10 Nov, 2011 [facility] [address] [id number] [place] [address] 3134 09 Nov, 2011 [facility] [address] [id number] [address] 285[address] Nov, [facility] [address] [id number] [place] [address] Oct, [facility] [address] [id number] [place] [address] 2342 Oct, [facility] [address] [id number] [place] [address] 8173 Oct, [facility] [address] [id number] [place] [address] 4118 Oct, [facility] [address] [id number] [place] [address] Oct, [facility] [address] [id number] [place] [address] 37[address] Oct, [facility] [address] [id number] [place] [address] 3[address] Sep, [facility] [address] [id number], [place] [address] Aug, [facility] [address] [id number], [place] [address] Jul, [facility] [address] [id number], [place] [address] 9526 Nov, [facility] [address] [id number], [place] [address] Nov, [facility] [address] [id number], [place] [address] Oct, [facility] [address] [id number] [place] [address]- 2452 Sep, [facility] [address] [id number], [place] [address] Sep, [facility] [address] [id number], [place] [address] Aug, [facility] [id number], [place] [address] 14 Aug, 2010 [facility] [id number], [place] [address] 14 Aug, 2010 [facility] [id number], [place] [address] Feb, [facility] [id number] [place] [address]- [address] Dec, [facility] [id number] [place] [address]- 5842 Oct, [facility] [id number] [place] [address]- 6256 Oct, [facility] [id number] [place] [address]- 2546 Oct, [facility] [id number] [place] [address]- 3338 Sep, [facility] [id number] [place] [address]- 5873 Sep, [facility] [id number] [place] [address]- 9986 Sep, [facility] [address] [address] Aug, [facility] [address], [place] [address] Aug, IMMUNIZATIONS No Known Immunizations SOCIAL HISTORY Never Assessed REASON FOR VISIT Pain (acute) foot, PT notes she has been having seizures and tremors. PT reports last night she got up to get some water and she lost muscle control which caused her to fall and injure her ankle. It is noted that her lithium dose has changed. -Jean ANGUIANO PLAN OF CARE VITAL SIGNS Height 63 in 2018-06-14 Weight 258.3 lbs 2018-06-14 Temperature 99.3 degrees Fahrenheit 2018-06-14 Heart Rate 113 bpm 2018-06-14 Respiratory Rate 20 2018-06-14 Oximetry 96 % 2018-06-14 BMI 45.75 kg/m2 2018-06-14 Blood pressure systolic 122 mmHg 2018-06-14 Blood pressure diastolic 80 mmHg 2018-06-14 MEDICATIONS Medication Instructions Dosage Frequency Start Date End Date Duration Status [place] 5-325 MG Orally every 6 hrs 1 tablet as needed 6h Jun, Active Amitriptyline HCl 50 MG Orally Once a day at bedtime 1 tablet Active Desvenlafaxine Succinate ER 100 MG Orally in morning 1 tablet Active BusPIRone HCl 10 mg Orally Three times a day 2 tablets 8h Active Gabapentin 800 MG Orally 3 times a day 1 tablet 8h Active [place] 5-325 MG Orally every 6 hrs 1 tablet as needed 6h May, Active Voltaren 1 % Transdermal 2 times a day apply 4gm as needed to lower back as needed 12h Nov, 30 days Active Seroquel 100 MG Orally Three times a day 1 tablet 8h Active Diclofenac Sodium 75 MG Orally Twice a day as needed 1 tablet with food or milk March, 30 day(s) Active Atorvastatin Calcium 20 mg Orally Once a day 1 tablet 24h Apr, 30 day(s) Active Quetiapine Fumarate 300 MG Orally Once a day 1 tablet at bedtime 24h Active Tramadol HCl 50 mg Orally every 6 hrs 1 tablet as needed 6h March, Active [place] Carbonate 600 MG Orally 2 times a day 1 capsule 12h 30 days Active RESULTS Name Result Date Reference Range Xray : Ankle, Left, 3 views (IN HOUSE) 2018-06-14 Xray : Foot, Left 3 views (IN HOUSE) 2018-06-14 PROCEDURES Procedure Date Ordered Result Body Site X-RAY EXAM OF ANKLE Jun 14, 2018 X-RAY EXAM OF FOOT Jun 14, 2018 INSTRUCTIONS MEDICATIONS ADMINISTERED No Known Medications MEDICAL [...] EGD Hospitalization History mental health issues x2 [facility] in [place] 2016 & 02/2017 Hospitalization History Surgery(s)/Childbirth(s)
--- OUTSIDE RECORDS SUMMARY | 2018-08-03 08:17 | XMS REPORT ---
Author Author RACHAEL CHEATHAM Organization [facility] Address [address] [place] [address] Care Team Providers Care Brusher Machine Name Role Phone RACHAEL CHEATHAM Unavailable PROBLEMS Type Condition ICD9-CM Code [id number] Code Onset Dates Condition Status SNOMED Code Problem Adjustment disorder with mixed anxiety and depressed mood F43.23 Active 85625299 Problem Bipolar 1 disorder F31.9 Active 998296397 Problem Schizo affective schizophrenia F25.0 Active 213967220 Problem Dysmenorrhea N94.6 Active 621289492 Problem Morbid obesity due to excess calories E66.01 Active 275253579 Problem Cannabis use disorder, mild, abuse F12.10 Active 75217921 Problem Sciatica, unspecified side M54.30 Active 86482712 Problem Other chronic pain G89.29 Active 95647812 Problem Lumbago with sciatica, right side M54.41 Active 284964546 Problem Anxiety F41.9 Active 27644920 Problem PTSD (post-traumatic stress disorder) F43.10 Active 78084044 Problem Borderline personality disorder F60.3 Active 87804886 Problem Severe episode of recurrent major depressive disorder, with psychotic features F33.3 Active 42323361 Problem Night terror F51.4 Active 48239095 Problem Mood disorder F39 Active 57110404 ALLERGIES No Information ENCOUNTERS Encounter Location Date Diagnosis [facility] [id number] [address] Aug, [facility] [id number] [place] [address] 61872- 4563 Jul, Anxiety F41.9 and Skin tags, multiple acquired L91.8 [facility] [id number], [place] [address] 05 Jul, 2018 BMI 45.0-49.9, adult Z68.42 ; Anxiety F41.9 ; Acute pain of left foot M79.672 and Acute swimmer''s ear of right side H60.331 [facility] [id number] [place] [address] 75257- 6022 Jun, [facility] [id number] [place] [address] 85736- 3284 Jun, PTSD (post-traumatic stress disorder) F43.10 ; Mood disorder F39 ; Borderline personality disorder F60.3 and Cannabis use disorder, mild, abuse F12.10 [facility] [id number] [place] [address] 10933- 6109 Jun, [place] [address] 95149- 7834 Jun, PTSD (post-traumatic stress disorder) F43.10 [place] [address] 25424- 1774 Jun, [place] adverse reaction T43.595A and Sprain of anterior talofibular ligament of left ankle, initial encounter S93.492A [facility] [id number] [place] [address] 82257- 3018 Jun, [facility] [facility] [address] 11643- 3990 May, [facility] [id number] [place] [address] 85543- 3902 May, Skin tags, multiple acquired L91.8 ; Dysmenorrhea N94.6 and Acute non-recurrent maxillary sinusitis J01.00 [facility] [id number] [place] [address] 79506- 0840 May, PTSD (post-traumatic stress disorder) F43.10 [facility] [id number] [place] [address] 95914- 0542 May, Other public address servicer (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 [place] [address] 84286- 9865 May, PTSD (post-traumatic stress disorder) F43.10 ; Mood disorder F39 ; Borderline personality disorder F60.3 and Cannabis use disorder, mild, abuse F12.10 [facility] [id number] [place] [address] 27032- 0592 May, BMI 40.0-44.9, adult Z68.[address] [address]80- 2065 18 Apr, 2018 BMI 40.0-44.9, adult Z68.41 [facility] [id number] [place] [address] 52120- 0665 14 Apr, 2018 Acute non-recurrent maxillary sinusitis J01.[address] 12123- 4586 11 Apr, 2018 PTSD (post-traumatic stress disorder) F43.10 ; Mood disorder F39 ; Borderline personality disorder F60.3 ; Cannabis use disorder, mild, abuse F12.10 and Other public address servicer (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 [facility] [id number] [place] [address] 77916- 3305 08 Apr, [address] 39720- 8478 07 Apr, 2018 Annual physical exam Z00.00 and High risk medication use Z79.899 [id number] [place] [address] 40652- 9893 07 Apr, 2018 PTSD (post-traumatic stress disorder) F43.10 [facility] [id number] [place] [address] 67632- 4558 Apr, [address] 21309- 0319 March, BMI 40.0-44.9, adult Z68.41 ; Morbid obesity due to excess calories E66.01 ; Lumbago with sciatica, right side M54.41 and Other chronic pain G89.29 [address], [place] [address] 9150 March, PTSD (post-traumatic stress disorder) F43.10 [facility] [id number] [place] [address] 86318- 8180 March, PTSD (post-traumatic stress disorder) F43.10 ; Mood disorder F39 ; Borderline personality disorder F60.3 and Cannabis use disorder, mild, abuse F12.10 [facility] [id number] [place] [address] 65651- 1849 Feb, [facility] [address] [place] [address] 22490- 2678 Feb, [facility] [address] [place] [id number] [place] [address] Feb, Breast cancer screening Z12.31 [facility] [id number] [place] [address] 30832- 1936 Feb, Mood disorder F39 and PTSD (post-traumatic stress disorder) F43.10 [facility] [address], [place] [address]- 5004 Feb, PTSD (post-traumatic stress disorder) F43.10 ; Mood disorder F39 ; Borderline personality disorder F60.3 and Cannabis use disorder, mild, abuse F12.10 [place] [address], [place] [address] 9264 Feb, Schizo affective schizophrenia F25.0 ; Adjustment disorder with mixed anxiety and depressed mood F43.23 ; Night terror F51.4 ; Anxiety F41.9 and Borderline personality disorder F60.3 [facility] [id number] [place] [address] 35632- 0356 Feb, [place] [id number] [place] [address] 91577- 7187 Feb, Mood disorder F39 [facility] [address] [place] [address] 35994- 7341 Feb, Annual physical exam Z00.00 ; BMI 40.0-44.9, adult Z68.41 and Nipple discharge N64.52 [place] [address] 09204- 8973 Jan, Schizo affective schizophrenia F25.0 ; Adjustment disorder with mixed anxiety and depressed mood F43.23 ; Night terror F51.4 ; Anxiety F41.9 and Borderline personality disorder F60.3 [place] [address] 66049- 7884 Jan, Mood disorder F39 ; PTSD (post-traumatic stress disorder) F43.10 ; Borderline personality disorder F60.3 and High risk medication use Z79.899 [place] [address] 68545- 7436 Dec, Anxiety F41.9 and Borderline personality disorder F60.3 [place] [address] 85429- 9810 Dec, [place] [address] 92957- 5367 Dec, Anxiety F41.9 and Borderline personality disorder F60.3 [place] [address] 06564- 5663 Dec, [place] [address] 04717- 1101 Dec, [place] [address] 44972- 7678 Nov, Acute non-recurrent maxillary sinusitis J01.00 ; Mood disorder F39 and Sciatica, unspecified side M54.30 [facility] [address] 48040- 4384 Nov, Mood disorder F39 ; PTSD (post-traumatic stress disorder) F43.10 and Borderline personality disorder F60.3 [place] [address] 42732- 2374 Nov, Anxiety F41.9 and Borderline personality disorder F60.3 [facility] [id number] [place] [address] 65743- 9202 Nov, [facility] [address] 93864- 3710 Nov, Anxiety F41.9 and Sciatica, unspecified side M54.30 [facility] [place] [id number] [place] [address] 09401- 5296 Oct, Anxiety F41.9 [place] [address] 06140- 492 Oct, Mood disorder F39 ; PTSD (post-traumatic stress disorder) F43.10 ; Borderline personality disorder F60.3 and High risk medication use Z79.899 [facility] [address] [id number] Oct, Dental caries K02.9 and Dental examination Z01.20 [place] [id number] [place] [address] 52913- 5712 Sep, Dysuria R30.0 and Abdominal pain, right lower quadrant R10.31 [facility] [id number] [place] [address] 97072- 2486 Aug, Mood disorder F39 ; PTSD (post-traumatic stress disorder) F43.10 and Borderline personality disorder F60.3 [facility] [id number] [place] [address] 14943- 3096 Aug, [facility] [id number] [place] [address] 38967- 3878 Aug, [facility] [id number] [place] [address] 45956- 2124 Aug, Severe episode of recurrent major depressive disorder, with psychotic features F33.3 ; PTSD (post-traumatic stress disorder) F43.10 ; Adjustment disorder with mixed anxiety and depressed mood F43.23 and Borderline personality disorder F60.3 [facility] [address] [facility] [id number] [address] 9[address] Aug, Mood disorder F39 ; PTSD (post-traumatic stress disorder) F43.10 and Borderline personality disorder F60.3 [facility] [address] [facility] [id number], [place] [address] 2546 Aug, [facility] [id number] [place] [address] 46917- 4686 Aug, Bipolar 1 disorder F31.9 and Schizo affective schizophrenia F25.0 [facility] [address] [facility] [id number], [place] [address]- 7196 Aug, Mood disorder F39 [facility] [id number] [place] [address] 35019- 9836 Aug, Bipolar 1 disorder F31.9 and Schizo affective schizophrenia F25.0 [facility] [address] [place] [address] 10854- 6862 Aug, Bipolar 1 disorder F31.9 and Schizo affective schizophrenia F25.0 [facility] [id number] [place] [address] 12599- 7228 Aug, [facility] [id number], [place] [address]- 7346 Aug, PTSD (post-traumatic stress disorder) F43.10 and Borderline personality disorder F60.3 [facility] [id number], [place] [address]- 8888 Aug, [facility] [id number] [place] [address] 52195- 2546 Aug, Mood disorder F39 ; PTSD (post-traumatic stress disorder) F43.10 ; Borderline personality disorder F60.3 and Adjustment disorder with mixed anxiety and depressed mood F43.23 [facility] [id number], [place] [address]- 0956 Jul, [facility] [id number], [place] [address]- 8876 Jul, Mood disorder F39 ; PTSD (post-traumatic stress disorder) F43.10 and Borderline personality disorder F60.3 [place] [address], [place] [address]- 1130 Jul, [place] [address] [place] [address] 14194- 8716 Jun, Anxiety F41.9 ; ADHD (attention deficit hyperactivity disorder) F90.9 ; Night terror F51.4 ; Bulimia F50.2 ; Severe episode of recurrent major depressive disorder, with psychotic features F33.3 and PTSD ( post-traumatic stress disorder) F43.10 [place] [address] [place] [address] 22373- 9123 Jun, Borderline personality disorder F60.3 ; Mood disorder F39 and PTSD (post-traumatic stress disorder) F43.10 [place] [address] [place] [address] 52595- 2427 Jun, Anxiety F41.9 [place] [address] [place] [address] 00792- 5463 Jun, Anxiety F41.9 ; ADHD (attention deficit hyperactivity disorder) F90.9 ; Night terror F51.4 ; Bulimia F50.2 ; Severe episode of recurrent major depressive disorder, with psychotic features F33.3 and PTSD ( post-traumatic stress disorder) F43.10 [place] [address] [place] [address] 32629- 2284 Jun, ADHD (attention deficit hyperactivity disorder) F90.9 ; Night terror F51.4 ; Bulimia F50.2 ; Anxiety F41.9 ; Severe episode of recurrent major depressive disorder, with psychotic features F33.3 and PTSD ( post-traumatic stress disorder) F43.10 [place] [address], [place] [address]- 3115 May, Anxiety F41.9 [place] [address], [place] [address]- 2822 May, PTSD (post-traumatic stress disorder) F43.10 and Borderline personality disorder F60.3 [facility] [address] [place] [address] 66401- 2923 Apr, [facility] [address] [address] March, Dental examination Z01.20 and Dental caries K02.9 [facility] [id number] [place] [address] 40509- 9785 March, Dental examination Z01.20 [facility] [id number] [place] [address] 85269- 2478 March, Tooth abscess K04.7 and Tooth pain K08.89 [place] [id number] [place] [address] 52977- 9459 March, Borderline personality disorder F60.3 [facility] [address] [place] [address] 42549- 0380 March, ADHD (attention deficit hyperactivity disorder) F90.9 ; Night terror F51.4 ; Bulimia F50.2 and Anxiety F41.9 [facility] [address], [place] [address]- 5402 Feb, Borderline personality disorder F60.3 ; ADHD (attention deficit hyperactivity disorder) F90.9 ; Anxiety F41.9 ; Bulimia F50.2 ; Obsessive-compulsive disorder, unspecified type F42.9 and Night terror F51.4 [facility] [address], [place] [address]- 7378 Feb, [facility] [id number] [place] [address] 48846- 0337 13 Feb, 2015 [facility] [id number] [place] [address] 61255- 8446 04 Jul, 2014 [facility] [id number] [place] [address]- 5574 Jul, [facility] [place] [facility] [address] [id number] [place] [address]- 3793 Jul, [facility] [place] [facility] [address] [id number] [place]353 Jul, [facility] [place] [facility] [address] [id number] [place] [address]- 0804 Jun, [facility] [place] [facility] [address] [id number] [place] [address]- 0254 Jun, [facility] [place] [facility] [address] [id number] [place] [address]- 8486 Jun, [facility] [place] [facility] [address] [id number] [place] [address]- 5048 Jun, [facility] [place] [facility] [address] [id number] [place] [address]- 9035 Apr, [facility] [place] [facility] [address] [id number] [place] [address]- 4015 Apr, [facility] [place] [facility] [address] [id number] [place] [address]- 4089 March, [facility] [place] [facility] [address] [id number] [place] [address]- 1680 March, [facility] [place] [facility] [address] [id number] [place] [address]- 8772 Jan, [facility] [place] [facility] [address] [id number] [place] [address]- 4024 Jan, [facility] [place] [facility] [address] [id number] [place] [address]- 2018 Jan, [facility] [place] [facility] [address] [id number] [place] [address]- 0392 Jan, [facility] [place] [facility] [address] [id number] [place] [address]- 0195 Jan, [facility] [place] [facility] [address] [id number] [place] [address]- 0212 Dec, [facility] [place] [facility] [address] [id number] [place] 7740 Dec, [facility] [place] [facility] [address] [id number] [place] [address]- 1157 Oct, [facility] [place] [facility] [address] [id number] [place] 6891 Oct, [facility] [place] [facility] [address] [id number] [place] [address]- 1528 Oct, [facility] [place] [facility] [address] [id number] [place] [address]- 8943 Oct, [facility] [place] [facility] [address] [id number] [place] [address]- 7096 Sep, [facility] [place] [facility] [address] [id number] [place] [address]- 6720 Sep, [facility] [place] [facility] [address] [id number] [place] [address]- 3931 Sep, [facility] [place] [facility] [address] [id number], [place] [address]- 8311 Aug, [facility] [place] [facility] [address] [id number], [place] [address]- 6555 Aug, [facility] [place] [facility] [address] [id number], [place] [address]- 9474 Aug, [facility] [place] [facility] [address] [id number], [place] [address]- 2965 Aug, [facility] [place] [facility] [address] [id number] 1192 Aug, [facility] [place] [facility] [address] [id number], [place] [address]- 6067 Aug, [facility] [place] [facility] [address] [id number], [place] [address]- 0364 Aug, [facility] [address] [id number] [place] [address]- 1995 Jul, [facility] [place] [facility] [address] [id number] [place] [address]- 6699 Jun, [facility] [place] [facility] [address] [id number] [place] [address]- 6054 Jun, [facility] [place] [facility] [address] [id number] [place] [address]- 1442 Jun, [facility] [place] [facility] [address] [id number] [place] [address]- 2045 Jun, [facility] [place] [facility] [address] [id number] [place] [address]- 0924 Jun, [facility] [address] [id number] [place] [address]- 2665 Jun, [facility] [place] [facility] [address] [id number] [place] [address]- 5536 May, [facility] [place] [facility] [address] [id number] [place] [address]- 3971 May, [facility] [place] [facility] [address] [id number] [place] [address]- 7532 May, [facility] [place] [facility] [address] [id number] [place] [address]- 2803 May, [facility] [place] [facility] [address] [id number] [place] [address]- 0849 March, [facility] [place] [facility] [address] [id number] [place] [address]- 8178 March, [facility] [place] [facility] [address] [id number] [place] 3682 March, [facility] [place] [facility] [address] [id number] [place] [address]- 4250 Feb, [facility] [place] [facility] [address] [id number] [place] [address]- 4398 29 Feb, 2013 [facility] [address] [id number] [place] [address]- 3446 10 Feb, 2013 [facility] [place] [facility] [address] [id number] [place] [address]- 4766 04 Feb, 2013 [facility] [address] [id number] [place] [address]- 1357 27 Jan, 2013 [facility] [place] [facility] [address] [id number] [place] [address]- 2781 Jan, [facility] [address] [id number] [place] [address]- 0326 Jan, [facility] [address] [id number] [place] [address]- 0599 Dec, [facility] [address] [id number] [place] [address]- 7488 14 Dec, 2012 [facility] [address] [id number] [place] [address]- 6388 Dec, [facility] [address] [id number] [place] [address]- 1931 05 Dec, 2012 [facility] [address] [id number] [place] [address]- 7263 Dec, [facility] [address] [id number] [place] [address]- 1156 Nov, [facility] [place] [facility] [address] [id number] [place] [address]- 5634 Nov, [facility] [place] [facility] [address] [id number] [place] [address]- 7664 Nov, [facility] [place] [facility] [address] [id number] [place] [address]- 9495 14 Nov, 2012 [facility] [place] [facility] [address] [id number] [place] [address]- 0576 Oct, [facility] [place] [facility] [address] [id number] [place] [address]- 5766 Oct, [facility] [place] [facility] [address] [id number] [place] [address]- 1616 Oct, [facility] [place] [facility] [address] [id number] [place] [address]- 8466 Oct, [facility] [place] [facility] [address] [id number] [place] [address]- 2606 Oct, [facility] [place] [facility] [address] [id number] [place] [address]- 3356 Oct, [facility] [place] [facility] [address] [id number] [place] [address]- 4288 Oct, [facility] [place] [facility] [address] [id number] [place] [address]- 2988 Oct, [facility] [place] [facility] [address] [id number] [place] [address]- 2270 Oct, [facility] [place] [facility] [address] [id number] [place] [address]- 7346 Oct, [facility] [place] [facility] [address] [id number] [place] [address]- 8703 Oct, [facility] [place] [facility] [address] [id number] [place] [address]- 9716 Oct, [facility] [place] [facility] [address] [id number] [place] [address] Oct, [facility] [place] [facility] [address] [id number] [place] [address] Sep, [facility] [place] [facility] [address] [id number] [place] [address] Sep, [facility] [place] [facility] [address] [id number] [place] [address] Sep, [facility] [place] [facility] [address] [id number] [place] [address] Sep, [facility] [place] [facility] [address] [id number] [place] [address] Sep, [facility] [place] [facility] [address] [id number] [place] [address] Sep, [facility] [place] [facility] [address] [id number] [place] [address] Sep, [facility] [place] [facility] [address] [id number] [place] [address] Sep, [facility] [place] [facility] [address] [id number] [place] [address], [place] [address] Sep, [facility] [place] [facility] [address] [id number] [place] [address] Sep, [facility] [place] [facility] [address] [facility] [id number] [place] [address] Sep, [facility] [place] [facility] [address] [id number] [place] [address] Sep, [facility] [place] [facility] [address] [facility] [id number] [place] [address] Aug, [facility] [place] [facility] [address] [facility] [id number] [place] [address] Aug, [facility] [place] [facility] [address] [facility] [id number] [place] [address] Aug, [facility] [place] [facility] [address] [id number] [place] [address] Aug, [facility] [place] [facility] [address] [facility] [id number] [place] [address] Aug, [facility] [place] [facility] [address] [facility] [id number] [place] [address] Aug, [facility] [place] [facility] [address] [facility] [id number] [place] [address] Aug, [facility] [place] [facility] [address] [id number] [place] [address] 2005 Aug, [facility] [place] [facility] [address] [id number] [place] [address] Aug, [facility] [place] [facility] [address] [id number] [place] [address] Aug, [facility] [place] [facility] [address] [id number] [place] [address] Aug, [facility] [place] [facility] [address] [id number] [place] [address] Aug, [facility] [place] [facility] [address] [id number] [place] [address] 28 Jul, 2012 [facility] [place] [facility] [address] [id number] [place] [address] 27 Jul, 2012 [facility] [place] [facility] [address] [id number] [place] [address] 21 Jul, 2012 [facility] [place] [facility] [address] [id number] [place] [address] 10 Jul, 2012 [facility] [place] [facility] [address] [id number], [place] [address] 05 Jul, 2012 [facility] [facility] [address] [facility] [id number], [place] [address] Jul, [facility] [place] [facility] [address] [id number], [place] [address] Jun, [facility] [place] [facility] [address] [id number] [place] [address] Jun, [facility] [place] [facility] [address] [id number] [place] [address] Jun, [facility] [place] [facility] [address] [facility] [id number], [place] [address] May, [facility] [place] [facility] [address] [id number], [place] [address] 25 May, 2012 [facility] [address] [id number] [place] [address] 14 May, 2012 [facility] [place] [facility] [address] [id number] [place] [address] 09 May, 2012 [facility] [place] [facility] [address] [id number] [place] [address] 06 May, 2012 [facility] [place] [facility] [address] [id number] [place] [address] 05 May, 2012 [facility] [place] [facility] [address] [id number] [place] [address] 30 Apr, 2012 [facility] [place] [facility] [address] [id number] [place] [address] 23 Feb, 2012 [facility] [address] [id number] [place] [address] 18 Feb, 2012 [facility] [place] [facility] [address] [id number] [place] [address] 11 Feb, 2012 [facility] [place] [facility] [address] [id number] [place] [address] 10 Feb, 2012 [facility] [place] [facility] [address] [facility] [id number] [place] [address]199 16 Jan, 2012 [facility] [place] [facility] [address] [id number] [place] [address] Jan, [facility] [place] [facility] [address] [id number] [place] [address] 8685 29 Dec, 2011 [facility] [place] [facility] [address] [id number] [place] [address] 1775 28 Dec, 2011 [facility] [place] [facility] [address] [id number] [place] [address] 2924 21 Dec, 2011 [facility] [place] [facility] [address] [facility] [id number] [place] [address]52 14 Dec, 2011 [facility] [place] [facility] [address] [id number] [place] [address] 1760 14 Dec, 2011 [facility] [place] [facility] [address] [id number] [place] [address] 6[address] 13 Dec, 2011 [facility] [place] [facility] [address] [id number] [place] [address] 3836 09 Dec, 2011 [facility] [place] [facility] [address] [id number] [place] [address] 69[address] Dec, [facility] [place] [facility] [address] [id number] [place] [address] Dec, [facility] [place] [facility] [address] [id number] [place] [address] Nov, [facility] [place] [facility] [address] [id number] [place] [address] Nov, [facility] [place] [facility] [address] [id number] [place] [address] 6073 Nov, [facility] [place] [facility] [address] [id number] [place] [address] Nov, [facility] [place] [facility] [address] [id number] [place] [address] Nov, [facility] [address] [id number] [place] [address] 6069 Nov, [facility] [place] [facility] [address] [id number] [place] [address] 1609 Nov, [facility] [place] [facility] [address] [id number] [place] [address] Nov, [facility] [place] [facility] [address] [id number] [place] [address] Nov, [facility] [place] [facility] [address] [id number] [place] [address] 0944 Oct, [facility] [facility] [address] [id number], [place] [address] Oct, [facility] [place] [facility] [address] [id number] [place] [address] Oct, [facility] [address] [id number], [place] [address] Oct, [facility] [address] [facility] [id number] [place] [address] 96[address] Oct, [facility] [place] [facility] [address] [id number] [place] [address] 3620 Oct, [facility] [address] [facility] [id number] [place] [address], [place] [address]- [address]24 Sep, [facility] [address] [facility] [id number] [place] [address]01 Aug, [facility] [address] [facility] [id number], [place] [address] Jul, [facility] [address] [facility] [id number], [place] [address] Nov, [facility] [address] [id number], [place] [address] Nov, [facility] [address] [id number], [place] [address] Oct, [facility] [address] [facility] [id number], [place] [address] 9410 Sep, [facility] [address] [facility] [id number], [place] [address]- 0874 Sep, [facility] [address] [facility] [id number], [place] [address]- 7060 18 Aug, 2010 [facility] [address] [facility] [id number], [place] [address]- [address]1 14 Aug, 2010 [facility] [address] [facility] [id number], [place] [address]- 7917 14 Aug, 2010 [facility] [id number], [place] [address] Feb, [facility] [id number], [place] [address] Dec, [facility] [id number] [address] Oct, [facility] [id number] [address] Oct, [facility] [id number], [place] [address] Oct, [facility] [id number] [place] [address]- [address] Sep, [facility] [id number] [place] [address] Sep, [facility] [id number], [place] [address] Sep, [facility] [id number], [place] [address] Aug, [facility] [id number], [place] [address] Aug, IMMUNIZATIONS No Known Immunizations SOCIAL HISTORY Never Assessed REASON FOR VISIT Lab results PLAN OF CARE VITAL SIGNS MEDICATIONS Unknown [...] EGD Hospitalization History mental health issues x2 [facility] [place] 2016 & 02/2017 Hospitalization History Surgery(s)/Childbirth(s)
--- OUTSIDE RECORDS SUMMARY | 2018-08-03 08:18 | XMS REPORT ---
Author Author RACHAEL CHEATHAM Organization [facility] [place] Address [address] [place] [address] Care Team Providers Care Complex Case Manager Name Role Phone RACHAEL CHEATHAM Unavailable PROBLEMS Type Condition ICD9-CM Code [id number] Code Onset Dates Condition Status SNOMED Code Problem Adjustment disorder with mixed anxiety and depressed mood F43.23 Active 45151664 Problem Bipolar 1 disorder F31.9 Active 779876851 Problem Schizo affective schizophrenia F25.0 Active 803691800 Problem Dysmenorrhea N94.6 Active 276128401 Problem Morbid obesity due to excess calories E66.01 Active 991411024 Problem Cannabis use disorder, mild, abuse F12.10 Active 37153612 Problem Sciatica, unspecified side M54.30 Active 79434982 Problem Other chronic pain G89.29 Active 05593232 Problem Lumbago with sciatica, right side M54.41 Active 416228967 Problem Anxiety F41.9 Active 29814182 Problem PTSD (post-traumatic stress disorder) F43.10 Active 21106940 Problem Borderline personality disorder F60.3 Active 90810795 Problem Severe episode of recurrent major depressive disorder, with psychotic features F33.3 Active 50186312 Problem Night terror F51.4 Active 86032527 Problem Mood disorder F39 Active 88669096 ALLERGIES No Information ENCOUNTERS Encounter Location Date Diagnosis [facility] [place] [id number] [address] Aug, [facility] [place] [id number] [place] [address] 19394- 9699 Jul, Anxiety F41.9 and Skin tags, multiple acquired L91.8 [facility] [place] [address] [id number] [address] 05 Jul, 2018 BMI 45.0-49.9, adult Z68.42 ; Anxiety F41.9 ; Acute pain of left foot M79.672 and Acute swimmer''s ear of right side H60.331 [facility] [place] [id number] [place] [address] 47558- 4096 Jun, [facility] [place] [id number] [place] [address] 79146- 9063 Jun, PTSD (post-traumatic stress disorder) F43.10 ; Mood disorder F39 ; Borderline personality disorder F60.3 and Cannabis use disorder, mild, abuse F12.10 [place] [id number] [place] [address] 72537- 3548 Jun, [place] [address] [address]- [address] Jun, PTSD (post-traumatic stress disorder) F43.10 [place] [address] [address]- 299[address] Jun, [place] adverse reaction T43.595A and Sprain of anterior talofibular ligament of left ankle, initial encounter S93.492A [place] [id number] [place] [address] 78833- 0146 Jun, [place] [address] 01416- 7629 May, [place] [id number] [place] [address] 69187- 8531 May, Skin tags, multiple acquired L91.8 ; Dysmenorrhea N94.6 and Acute non-recurrent maxillary sinusitis J01.00 [place] [id number] [place] [address] 82630- 5041 May, PTSD (post-traumatic stress disorder) F43.10 [place] [id number] [place] [address] 32478- 8566 May, 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 [place] [address] 62965- 0333 May, PTSD (post-traumatic stress disorder) F43.10 ; Mood disorder F39 ; Borderline personality disorder F60.3 and Cannabis use disorder, mild, abuse F12.10 [place] [id number] [place] [address] 37625- 5167 May, BMI 40.0-44.9, adult Z68.[address] [address]- 5396 18 Apr, 2018 BMI 40.0-44.9, adult Z68.41 [place] [id number] [place] [address] 95560- 2726 14 Apr, 2018 Acute non-recurrent maxillary sinusitis J01.[address] 40498- 3869 11 Apr, 2018 PTSD (post-traumatic stress disorder) F43.10 ; Mood disorder F39 ; Borderline personality disorder F60.3 ; Cannabis use disorder, mild, abuse F12.10 and 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 [place] [id number] [place] [address] 85895- 1409 08 Apr, [address] 06367- 3010 07 Apr, 2018 Annual physical exam Z00.00 and High risk medication use Z79.899 [place] [id number] [place] [address] 37408- 7309 07 Apr, 2018 PTSD (post-traumatic stress disorder) F43.10 [place] [id number] [place] [address] 69644- 4396 Apr, [address] 14782- 3141 March, BMI 40.0-44.9, adult Z68.41 ; Morbid obesity due to excess calories E66.01 ; Lumbago with sciatica, right side M54.41 and Other chronic pain G89.29 [address] [address] 0[address] March, PTSD (post-traumatic stress disorder) F43.10 [place] [id number] [place] [address] 15211- 4669 March, PTSD (post-traumatic stress disorder) F43.10 ; Mood disorder F39 ; Borderline personality disorder F60.3 and Cannabis use disorder, mild, abuse F12.10 [place] [id number] [place] [address] 55883- 6219 Feb, [place] [id number] [place] [address] 63266- 2271 Feb, [facility] [address] [place] [id number] [place] [address] Feb, Breast cancer screening Z12.31 [place] [id number] [place] [address] 95076- 6145 Feb, Mood disorder F39 and PTSD (post-traumatic stress disorder) F43.10 [place] [address] [address] Feb, PTSD (post-traumatic stress disorder) F43.10 ; Mood disorder F39 ; Borderline personality disorder F60.3 and Cannabis use disorder, mild, abuse F12.10 [place] [address] [address] Feb, Schizo affective schizophrenia F25.0 ; Adjustment disorder with mixed anxiety and depressed mood F43.23 ; Night terror F51.4 ; Anxiety F41.9 and Borderline personality disorder F60.3 [place] [id number] [place] [address] 96056- 7621 Feb, [place] [id number] [place] [address] 96376- 5404 Feb, Mood disorder F39 [place] [id number] [place] [address] 74960- 3154 Feb, Annual physical exam Z00.00 ; BMI 40.0-44.9, adult Z68.41 and Nipple discharge N64.52 [place] [address] [address]- 6626 Jan, Schizo affective schizophrenia F25.0 ; Adjustment disorder with mixed anxiety and depressed mood F43.23 ; Night terror F51.4 ; Anxiety F41.9 and Borderline personality disorder F60.3 [place] [address] [address]- 6091 Jan, Mood disorder F39 ; PTSD (post-traumatic stress disorder) F43.10 ; Borderline personality disorder F60.3 and High risk medication use Z79.899 [place] [address] 69349- 0515 Dec, Anxiety F41.9 and Borderline personality disorder F60.3 [place] [address] 90978- 7660 Dec, [place] [address] 15006- 5417 Dec, Anxiety F41.9 and Borderline personality disorder F60.3 [place] [address] 99416- 0136 Dec, [place] [address] 83731- 4129 Dec, [place] [address] 43463- 8398 Nov, Acute non-recurrent maxillary sinusitis J01.00 ; Mood disorder F39 and Sciatica, unspecified side M54.30 [place] [address] 09005- 6816 Nov, Mood disorder F39 ; PTSD (post-traumatic stress disorder) F43.10 and Borderline personality disorder F60.3 [place] [address] 24120- 0835 Nov, Anxiety F41.9 and Borderline personality disorder F60.3 [facility] [place] [id number] [place] [address] 74080- 4881 Nov, [facility] [place] [address] 95762- 6949 Nov, Anxiety F41.9 and Sciatica, unspecified side M54.30 [place] [id number] [place] [address] 69873- 4359 Oct, Anxiety F41.9 [place] [address] 34226- 260 Oct, Mood disorder F39 ; PTSD (post-traumatic stress disorder) F43.10 ; Borderline personality disorder F60.3 and High risk medication use Z79.899 [facility] [address] [id number] Oct, Dental caries K02.9 and Dental examination Z01.20 [place] [id number] [place] [address] 19771- 2163 Sep, Dysuria R30.0 and Abdominal pain, right lower quadrant R10.31 [place] [id number] [place] [address] 47415- 9114 Aug, Mood disorder F39 ; PTSD (post-traumatic stress disorder) F43.10 and Borderline personality disorder F60.3 [place] [id number] [place] [address] 13388- 7373 Aug, [facility] [place] [id number] [place] [address] 27280- 6352 Aug, [place] [id number] [place] [address] 05212- 7944 Aug, Severe episode of recurrent major depressive disorder, with psychotic features F33.3 ; PTSD (post-traumatic stress disorder) F43.10 ; Adjustment disorder with mixed anxiety and depressed mood F43.23 and Borderline personality disorder F60.3 [facility] [place] [address] [facility] [id number] [address]- 5[address] Aug, Mood disorder F39 ; PTSD (post-traumatic stress disorder) F43.10 and Borderline personality disorder F60.3 [facility] [place] [address] [facility] [id number] [address] 2546 Aug, [facility] [place] [id number] [place] [address] 30625- 3436 Aug, Bipolar 1 disorder F31.9 and Schizo affective schizophrenia F25.0 [facility] [place] [address] [facility] [id number] [address]- 6996 Aug, Mood disorder F39 [facility] [place] [id number] [place] [address] 59233- 1246 Aug, Bipolar 1 disorder F31.9 and Schizo affective schizophrenia F25.0 [facility] [place] [address] [place] [address] 45257- 5699 Aug, Bipolar 1 disorder F31.9 and Schizo affective schizophrenia F25.0 [facility] [place] [id number] [place] [address] 77305- 1331 Aug, [facility] [place] [id number] [address]- 3406 Aug, PTSD (post-traumatic stress disorder) F43.10 and Borderline personality disorder F60.3 [facility] [place] [id number] [address]- 5273 Aug, [facility] [place] [id number] [place] [address] 51870- 2546 Aug, Mood disorder F39 ; PTSD (post-traumatic stress disorder) F43.10 ; Borderline personality disorder F60.3 and Adjustment disorder with mixed anxiety and depressed mood F43.23 [facility] [place] [id number] [address]- 1386 Jul, [facility] [place] [id number] [address]- 6873 Jul, Mood disorder F39 ; PTSD (post-traumatic stress disorder) F43.10 and Borderline personality disorder F60.3 [place] [address] [address]- 5488 Jul, [place] [id number] [place] [address] 97261- 8967 Jun, Anxiety F41.9 ; ADHD (attention deficit hyperactivity disorder) F90.9 ; Night terror F51.4 ; Bulimia F50.2 ; Severe episode of recurrent major depressive disorder, with psychotic features F33.3 and PTSD ( post-traumatic stress disorder) F43.10 [place] [address] [place] [address] 77800- 7349 Jun, Borderline personality disorder F60.3 ; Mood disorder F39 and PTSD (post-traumatic stress disorder) F43.10 [place] [address] [place] [address] 09227- 8439 Jun, Anxiety F41.9 [place] [address] [place] [address] 61965- 9750 Jun, Anxiety F41.9 ; ADHD (attention deficit hyperactivity disorder) F90.9 ; Night terror F51.4 ; Bulimia F50.2 ; Severe episode of recurrent major depressive disorder, with psychotic features F33.3 and PTSD ( post-traumatic stress disorder) F43.10 [place] [address] [place] [address] 33840- 2491 Jun, ADHD (attention deficit hyperactivity disorder) F90.9 ; Night terror F51.4 ; Bulimia F50.2 ; Anxiety F41.9 ; Severe episode of recurrent major depressive disorder, with psychotic features F33.3 and PTSD ( post-traumatic stress disorder) F43.10 [place] [address] [address]- 2706 May, Anxiety F41.9 [place] [address] [address]- 9305 May, PTSD (post-traumatic stress disorder) F43.10 and Borderline personality disorder F60.3 [facility] [place] [address] [place] [address] 83778- 5429 Apr, [facility] [address] [address] March, Dental examination Z01.20 and Dental caries K02.9 [facility] [place] [id number] [place] [address] 58305- 9971 March, Dental examination Z01.20 [facility] [place] [id number] [place] [address] 76676- 2483 March, Tooth abscess K04.7 and Tooth pain K08.89 [place] [id number] [place] [address] 91538- 8613 March, Borderline personality disorder F60.3 [facility] [place] [id number] [place] [address] 47303- 7551 March, ADHD (attention deficit hyperactivity disorder) F90.9 ; Night terror F51.4 ; Bulimia F50.2 and Anxiety F41.9 [facility] [place] [address] [address]- 8598 Feb, Borderline personality disorder F60.3 ; ADHD (attention deficit hyperactivity disorder) F90.9 ; Anxiety F41.9 ; Bulimia F50.2 ; Obsessive-compulsive disorder, unspecified type F42.9 and Night terror F51.4 [facility] [place] [address] [address]- 2359 Feb, [facility] [place] [id number] [place] [address] 01167- 1447 13 Feb, 2015 [facility] [place] [id number] [place] [address] 50577- 5226 04 Jul, 2014 [facility] [place] [id number] [place] [address]- 4962 Jul, [facility] [place] [facility] [address] [id number] [place] [address]- 4389 Jul, [facility] [place] [facility] [address] [id number] [place] [address] Jul, [facility] [place] [facility] [address] [id number] [place] [address]- 9316 Jun, [facility] [place] [facility] [address] [id number] [place] [address]- 2071 Jun, [facility] [place] [facility] [address] [id number] [place] [address]- 8234 Jun, [facility] [place] [facility] [address] [id number] [place] [address]- 2734 Jun, [facility] [place] [facility] [address] [id number] [place] [address]- 5013 Apr, [facility] [place] [facility] [address] [id number] [place] [address]- 7713 Apr, [facility] [place] [facility] [address] [id number] [place] [address]- 0132 March, [facility] [place] [facility] [address] [id number] [place] [address]- 5973 March, [facility] [place] [facility] [address] [id number] [place] [address]- 0593 Jan, [facility] [place] [facility] [address] [id number] [place] [address]- 9208 Jan, [facility] [place] [facility] [address] [id number] [place] [address]- 5648 Jan, [facility] [place] [facility] [address] [id number] [place] [address]- 4887 Jan, [facility] [place] [facility] [address] [id number] [place] [address]- 1239 Jan, [facility] [place] [facility] [address] [id number] [place] [address]- 3019 Dec, [facility] [place] [facility] [address] [id number] [place] 0426 Dec, [facility] [place] [facility] [address] [id number] [place] [address]- 6584 Oct, [facility] [place] [facility] [address] [id number] [place] [address] Oct, [facility] [place] [facility] [address] [id number] [place] [address]- 3741 Oct, [facility] [place] [facility] [address] [id number] [place] [address]- 4154 Oct, [facility] [place] [facility] [address] [id number] [place] [address]- 4796 Sep, [facility] [place] [facility] [address] [id number] [place] [address]- 3293 Sep, [facility] [place] [facility] [address] [id number] [place] [address]- 7590 Sep, [facility] [place] [facility] [address] [id number] [place] [address]- 4482 Aug, [facility] [place] [facility] [address] [id number] [address]- 4248 Aug, [facility] [place] [facility] [address] [id number] [place] [address]- 8565 Aug, [facility] [place] [facility] [address] [id number] [place] [address]- 1619 Aug, [facility] [place] [facility] [address] [id number] [place] 2163 Aug, [facility] [place] [facility] [address] [id number] [place] [address]- 6648 Aug, [facility] [place] [facility] [address] [id number] [address]- 0246 Aug, [facility] [address] [id number] [place] [address]- 5994 Jul, [facility] [place] [facility] [address] [id number] [place] [address]- 9880 Jun, [facility] [place] [facility] [address] [id number] [place] [address]- 6885 Jun, [facility] [place] [facility] [address] [id number] [place] [address]- 4788 Jun, [facility] [place] [facility] [address] [id number] [place] [address]- 7765 Jun, [facility] [place] [facility] [address] [id number] [place] [address]- 3679 Jun, [facility] [address] [id number] [place] [address]- 0393 Jun, [facility] [place] [facility] [address] [id number] [place] [address]- 5514 May, [facility] [place] [facility] [address] [id number] [place] [address]- 8190 May, [facility] [place] [facility] [address] [id number] [place] [address]- 7718 May, [facility] [place] [facility] [address] [id number] [place] [address]- 1376 May, [facility] [place] [facility] [address] [id number] [place] [address]- 0526 March, [facility] [place] [facility] [address] [id number] [place] [address]- 5838 March, [facility] [place] [facility] [address] [id number] [place] 8603 March, [facility] [place] [facility] [address] [id number] [place] [address]- 3672 Feb, [facility] [place] [facility] [address] [id number] [place] [address]- 3325 29 Feb, 2013 [facility] [address] [id number] [place] [address]- 5788 10 Feb, 2013 [facility] [place] [facility] [address] [id number] [place] [address]- 2310 04 Feb, 2013 [facility] [address] [id number] [place] [address]- 9821 27 Jan, 2013 [facility] [place] [facility] [address] [id number] [place] [address]- 7614 Jan, [facility] [address] [id number] [place] [address]- 6026 Jan, [facility] [address] [id number] [place] [address]- 4956 Dec, [facility] [address] [id number] [place] [address]- 5360 14 Dec, 2012 [facility] [address] [id number] [place] [address]- 9189 Dec, [facility] [address] [id number] [place] [address]- 5677 05 Dec, 2012 [facility] [address] [id number] [place] [address]- 4910 Dec, [facility] [address] [id number] [place] [address]- 5370 Nov, [facility] [place] [facility] [address] [id number] [place] [address]- 5412 Nov, [facility] [place] [facility] [address] [id number] [place] [address]- 1330 Nov, [facility] [place] [facility] [address] [id number] [place] [address]- 9099 14 Nov, 2012 [facility] [place] [facility] [address] [id number] [place] [address] Oct, [facility] [place] [facility] [address] [id number] [place] [address] Oct, [facility] [place] [facility] [address] [id number] [place] [address] Oct, [facility] [place] [facility] [address] [id number] [place] [address] Oct, [facility] [place] [facility] [address] [id number] [place] [address] Oct, [facility] [place] [facility] [address] [id number] [place] [address] Oct, [facility] [place] [facility] [address] [id number] [place] [address] Oct, [facility] [place] [facility] [address] [id number] [place] [address] Oct, [facility] [place] [facility] [address] [id number] [place] [address] Oct, [facility] [place] [facility] [address] [id number] [place] [address] Oct, [facility] [place] [facility] [address] [id number] [place] [address] Oct, [facility] [place] [facility] [address] [id number] [place] [address] Oct, [facility] [place] [facility] [address] [id number] [place] [address] Oct, [facility] [place] [facility] [address] [id number] [place] [address] Sep, [facility] [place] [facility] [address] [id number] [place] [address] Sep, [facility] [place] [facility] [address] [id number] [place] [address] Sep, [facility] [place] [facility] [address] [id number] [place] [address] Sep, [facility] [place] [facility] [address] [id number] [place] [address] Sep, [facility] [place] [facility] [address] [id number] [place] [address] Sep, [facility] [place] [facility] [address] [id number] [place] [address] Sep, [facility] [place] [facility] [address] [id number] [place] [address] Sep, [facility] [place] [facility] [address] [id number] [place] [address], [place] [address] Sep, [facility] [place] [facility] [address] [id number] [place] [address] Sep, [facility] [place] [facility] [address] [facility] [id number] [place] [address] Sep, [facility] [place] [facility] [address] [id number] [place] [address] Sep, [facility] [place] [facility] [address] [facility] [id number] [place] [address] Aug, [facility] [place] [facility] [address] [facility] [id number] [place] [address] Aug, [facility] [place] [facility] [address] [facility] [id number] [place] [address] Aug, [facility] [place] [facility] [address] [id number] [place] [address] Aug, [facility] [place] [facility] [address] [facility] [id number] [place] [address] Aug, [facility] [place] [facility] [address] [facility] [id number] [place] [address] Aug, [facility] [place] [facility] [address] [facility] [id number] [place] [address] Aug, [facility] [place] [facility] [address] [id number] [place] [address] Aug, [facility] [place] [facility] [address] [id number] [place] [address] Aug, [facility] [place] [facility] [address] [id number] [place] [address] Aug, [facility] [place] [facility] [address] [id number] [place] [address] Aug, [facility] [place] [facility] [address] [id number] [place] [address] Aug, [facility] [place] [facility] [address] [id number] [place] [address] 28 Jul, 2012 [facility] [place] [facility] [address] [id number] [place] [address] 27 Jul, 2012 [facility] [place] [facility] [address] [id number] [place] [address] 21 Jul, 2012 [facility] [place] [facility] [address] [id number] [place] [address]247 10 Jul, 2012 [facility] [place] [facility] [address] [id number] [address] 05 Jul, 2012 [facility] [place] [facility] [address] [facility] [id number] [place] [address] Jul, [facility] [place] [facility] [address] [id number] [place] [address] Jun, [facility] [place] [facility] [address] [id number] [place] [address] Jun, [facility] [place] [facility] [address] [id number] [place] [address] Jun, [facility] [place] [facility] [address] [facility] [id number] [place] [address] May, [facility] [place] [facility] [address] [id number] [place] [address] 25 May, 2012 [facility] [address] [id number] [place] [address] 14 May, 2012 [facility] [place] [facility] [address] [id number] [place] [address]68 09 May, 2012 [facility] [place] [facility] [address] [id number] [place] [address] 9142 06 May, 2012 [facility] [place] [facility] [address] [id number] [place] [address] 4605 05 May, 2012 [facility] [place] [facility] [address] [id number] [place] [address] 30 Apr, 2012 [facility] [place] [facility] [address] [id number] [place] [address] 2456 23 Feb, 2012 [facility] [address] [id number] [place] [address] 18 Feb, 2012 [facility] [place] [facility] [address] [id number] [place] [address] 9131 11 Feb, 2012 [facility] [place] [facility] [address] [id number] [place] [address]- 1481 10 Feb, 2012 [facility] [place] [facility] [address] [facility] [id number] [place] [address] 6486 16 Jan, 2012 [facility] [place] [facility] [address] [id number] [place] [address] 4785 Jan, [facility] [place] [facility] [address] [id number] [place] [address]227 29 Dec, 2011 [facility] [place] [facility] [address] [id number] [place] [address] 4523 28 Dec, 2011 [facility] [place] [facility] [address] [id number] [place] [address] 8148 21 Dec, 2011 [facility] [place] [facility] [address] [facility] [id number] [place] [address]578 14 Dec, 2011 [facility] [place] [facility] [address] [id number] [place] [address]- 2314 14 Dec, 2011 [facility] [place] [facility] [address] [id number] [place] [address] 7016 13 Dec, 2011 [facility] [place] [facility] [address] [id number] [place] [address]- 2166 09 Dec, 2011 [facility] [place] [facility] [address] [id number] [place] [address] 0796 Dec, [facility] [place] [facility] [address] [id number] [place] [address] 0659 Dec, [facility] [place] [facility] [address] [id number] [place] [address]105 Nov, [facility] [place] [facility] [address] [id number] [place] [address] 116[address] Nov, [facility] [place] [facility] [address] [id number] [place] [address] 8306 Nov, [facility] [place] [facility] [address] [id number] [place] [address] 6192 Nov, [facility] [place] [facility] [address] [id number] [place] [address] 3706 Nov, [facility] [place] [facility] [address] [id number] [place] [address] 9233 Nov, [facility] [place] [facility] [address] [id number] [place] [address]- 3927 Nov, [facility] [place] [facility] [address] [id number] [place] [address] 5216 Nov, [facility] [place] [facility] [address] [id number] [place] [address] 3[address] Nov, [facility] [place] [facility] [address] [id number] [place] [address] 1117 Oct, [facility] [place] [facility] [address] [id number] [place] [address] Oct, [facility] [place] [facility] [address] [id number] [place] [address] 8729 Oct, [facility] [place] [facility] [address] [id number] [place] [address] 49[address] Oct, [facility] [place] [facility] [address] [facility] [id number] [place] [address]- 4792 Oct, [facility] [place] [facility] [address] [id number] [place] [address] 7325 Oct, [facility] [place] [facility] [address] [facility] [id number] [place] [address], [place] [address]- [address]32 Sep, [facility] [place] [facility] [address] [facility] [id number] [place] [address]- 1498 Aug, [facility] [address] [facility] [id number] [place] [address]- 1086 Jul, [facility] [place] [facility] [address] [facility] [id number] [place] [address]- 99[address] Nov, [facility] [place] [facility] [address] [id number] [address] Nov, [facility] [place] [facility] [address] [id number] [address] 4482 Oct, [facility] [place] [facility] [address] [facility] [id number] [place] [address] 3160 Sep, [facility] [place] [facility] [address] [facility] [id number] [place] [address]- 0716 Sep, [facility] [place] [facility] [address] [facility] [id number] [place] [address] 3838 18 Aug, 2010 [facility] [place] [facility] [address] [facility] [id number] [place] [address]- 3457 14 Aug, 2010 [facility] [place] [facility] [address] [facility] [id number] [place] [address]- 9118 14 Aug, 2010 [facility] [place] [facility] [id number] [address] Feb, [facility] [place] [id number] [address] Dec, [facility] [place] [id number] Oct, [facility] [place] [id number] [address] Oct, [facility] [place] [id number] [address] 2634 Oct, [facility] [place] [id number] [place] [address]- [address]63 Sep, [facility] [place] [id number] [place] [address]- 4770 Sep, [facility] [place] [id number] [address]- [address] Sep, [facility] [place] [id number] [address]- 8565 Aug, [facility] [place] [id number] [address] Aug, IMMUNIZATIONS No Known Immunizations SOCIAL HISTORY Never Assessed 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
--- OUTSIDE RECORDS SUMMARY | 2018-08-03 08:18 | XMS REPORT ---
Author Author RACHAEL CHEATHAM Organization [facility] Address [address] [place] [address] Care Team Providers Care Spool Carrier Name Role Phone RACHAEL CHEATHAM Unavailable PROBLEMS Type Condition ICD9-CM Code [id number] Code Onset Dates Condition Status SNOMED Code Problem Adjustment disorder with mixed anxiety and depressed mood F43.23 Active 66000944 Problem Bipolar 1 disorder F31.9 Active 522051670 Problem Schizo affective schizophrenia F25.0 Active 789382066 Problem Dysmenorrhea N94.6 Active 736450561 Problem Morbid obesity due to excess calories E66.01 Active 805769112 Problem Cannabis use disorder, mild, abuse F12.10 Active 47949204 Problem Sciatica, unspecified side M54.30 Active 11530417 Problem Other chronic pain G89.29 Active 19968829 Problem Lumbago with sciatica, right side M54.41 Active 508820645 Problem Anxiety F41.9 Active 08039497 Problem PTSD (post-traumatic stress disorder) F43.10 Active 17737497 Problem Borderline personality disorder F60.3 Active 43969081 Problem Severe episode of recurrent major depressive disorder, with psychotic features F33.3 Active 41868829 Problem Night terror F51.4 Active 11668389 Problem Mood disorder F39 Active 44890781 ALLERGIES No Information ENCOUNTERS Encounter Location Date Diagnosis [facility] [id number] [address] Aug, [facility] [id number] [place] [address] 09874- 3750 Jul, Anxiety F41.9 and Skin tags, multiple acquired L91.8 [facility] [id number] [address] 05 Jul, 2018 BMI 45.0-49.9, adult Z68.42 ; Anxiety F41.9 ; Acute pain of left foot M79.672 and Acute swimmer''s ear of right side H60.331 [facility] [id number] [place] [address] 45371- 7310 Jun, [facility] [id number] [place] [address] 67969- 4096 Jun, PTSD (post-traumatic stress disorder) F43.10 ; Mood disorder F39 ; Borderline personality disorder F60.3 and Cannabis use disorder, mild, abuse F12.10 [place] [id number] [place] [address] 07990- 5956 Jun, [place] [address] 03796- 9887 Jun, PTSD (post-traumatic stress disorder) F43.10 [place] [address] [address]12- 7960 Jun, [place] adverse reaction T43.595A and Sprain of anterior talofibular ligament of left ankle, initial encounter S93.492A [place] [id number] [place] [address] 43068- 8539 Jun, [place] [address] 85698- 3390 May, [place] [id number] [place] [address] 96056- 9706 May, Skin tags, multiple acquired L91.8 ; Dysmenorrhea N94.6 and Acute non-recurrent maxillary sinusitis J01.00 [place] [id number] [place] [address] 64258- 2461 May, PTSD (post-traumatic stress disorder) F43.10 [place] [id number] [place] [address] 27688- 1845 May, 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 [place] [address] 87978- 5292 May, PTSD (post-traumatic stress disorder) F43.10 ; Mood disorder F39 ; Borderline personality disorder F60.3 and Cannabis use disorder, mild, abuse F12.10 [place] [id number] [place] [address] 29665- 8732 May, BMI 40.0-44.9, adult Z68.[address] [address]59- 0562 18 Apr, 2018 BMI 40.0-44.9, adult Z68.41 [place] [id number] [place] [address] 88788- 5044 14 Apr, 2018 Acute non-recurrent maxillary sinusitis J01.[address] 54066- 0404 11 Apr, 2018 PTSD (post-traumatic stress disorder) F43.10 ; Mood disorder F39 ; Borderline personality disorder F60.3 ; Cannabis use disorder, mild, abuse F12.10 and 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 [place] [id number] [place] [address] 53462- 2512 08 Apr, [address] 73393- 2604 07 Apr, 2018 Annual physical exam Z00.00 and High risk medication use Z79.8[id number] [place] [address] 60039- 1504 07 Apr, 2018 PTSD (post-traumatic stress disorder) F43.10 [place] [id number] [place] [address] 03858- 4505 Apr, [address] 25844- 4533 March, BMI 40.0-44.9, adult Z68.41 ; Morbid obesity due to excess calories E66.01 ; Lumbago with sciatica, right side M54.41 and Other chronic pain G89.29 [address] [address] 59[address] March, PTSD (post-traumatic stress disorder) F43.10 [place] [id number] [place] [address] 63593- 0117 March, PTSD (post-traumatic stress disorder) F43.10 ; Mood disorder F39 ; Borderline personality disorder F60.3 and Cannabis use disorder, mild, abuse F12.10 [place] [id number] [place] [address] 49829- 2063 Feb, [place] [address] [place] [address] 90112- 2161 Feb, [facility] [address] [place], [place] [id number] [place] [address] Feb, Breast cancer screening Z12.31 [place] [id number] [place] [address] 86766- 4513 Feb, Mood disorder F39 and PTSD (post-traumatic stress disorder) F43.10 [place] [address], [place] [address] 7102 Feb, PTSD (post-traumatic stress disorder) F43.10 ; Mood disorder F39 ; Borderline personality disorder F60.3 and Cannabis use disorder, mild, abuse F12.10 [place] [address], [place] [address] 2031 Feb, Schizo affective schizophrenia F25.0 ; Adjustment disorder with mixed anxiety and depressed mood F43.23 ; Night terror F51.4 ; Anxiety F41.9 and Borderline personality disorder F60.3 [place] [id number] [place] [address] 99460- 6656 Feb, [place] [id number] [place] [address] 54068- 0464 Feb, Mood disorder F39 [place] [address] [place] [address] 23306- 4133 Feb, Annual physical exam Z00.00 ; BMI 40.0-44.9, adult Z68.41 and Nipple discharge N64.52 [place] [address] 38881- 1320 Jan, Schizo affective schizophrenia F25.0 ; Adjustment disorder with mixed anxiety and depressed mood F43.23 ; Night terror F51.4 ; Anxiety F41.9 and Borderline personality disorder F60.3 [place] [address] 88457- 8670 Jan, Mood disorder F39 ; PTSD (post-traumatic stress disorder) F43.10 ; Borderline personality disorder F60.3 and High risk medication use Z79.899 [place] [address] 95231- 2978 Dec, Anxiety F41.9 and Borderline personality disorder F60.3 [place] [address] 82864- 6904 Dec, [place] [address] 78707- 9113 Dec, Anxiety F41.9 and Borderline personality disorder F60.3 [place] [address] 87788- 1265 Dec, [place] [address] 44566- 4665 Dec, [place] [address] 86620- 0182 Nov, Acute non-recurrent maxillary sinusitis J01.00 ; Mood disorder F39 and Sciatica, unspecified side M54.30 [place] [address] 73897- 5978 Nov, Mood disorder F39 ; PTSD (post-traumatic stress disorder) F43.10 and Borderline personality disorder F60.3 [place] [address] 29880- 5642 Nov, Anxiety F41.9 and Borderline personality disorder F60.3 [facility] [id number] [place] [address] 96113- 9532 Nov, [facility] [address] 62250- 2495 Nov, Anxiety F41.9 and Sciatica, unspecified side M54.30 [place] [id number] [place] [address] 05928- 6506 Oct, Anxiety F41.9 [place] [address] 33198- 504 Oct, Mood disorder F39 ; PTSD (post-traumatic stress disorder) F43.10 ; Borderline personality disorder F60.3 and High risk medication use Z79.899 [facility] [address] [id number] Oct, Dental caries K02.9 and Dental examination Z01.20 [place] [id number] [place] [address] 21552- 4114 Sep, Dysuria R30.0 and Abdominal pain, right lower quadrant R10.31 [place] [id number] [place] [address] 94308- 8654 Aug, Mood disorder F39 ; PTSD (post-traumatic stress disorder) F43.10 and Borderline personality disorder F60.3 [place] [id number] [place] [address] 90192- 6807 Aug, [facility] [id number] [place] [address] 45083- 9043 Aug, [place] [id number] [place] [address] 67300- 8284 Aug, Severe episode of recurrent major depressive disorder, with psychotic features F33.3 ; PTSD (post-traumatic stress disorder) F43.10 ; Adjustment disorder with mixed anxiety and depressed mood F43.23 and Borderline personality disorder F60.3 [facility] [address] [facility] [id number] [address] 5098 Aug, Mood disorder F39 ; PTSD (post-traumatic stress disorder) F43.10 and Borderline personality disorder F60.3 [facility] [address] [facility] [id number] [address] 2546 Aug, [facility] [id number] [place] [address] 99733- 7706 Aug, Bipolar 1 disorder F31.9 and Schizo affective schizophrenia F25.0 [facility] [address] [facility] [id number] [address]- 2136 Aug, Mood disorder F39 [facility] [id number] [place] [address] 58752- 8386 Aug, Bipolar 1 disorder F31.9 and Schizo affective schizophrenia F25.0 [facility] [address] [place] [address] 34079- 5480 Aug, Bipolar 1 disorder F31.9 and Schizo affective schizophrenia F25.0 [facility] [id number] [place] [address] 18424- 9614 Aug, [facility] [id number] [address]- 2666 Aug, PTSD (post-traumatic stress disorder) F43.10 and Borderline personality disorder F60.3 [facility] [id number] [address]- 3664 Aug, [facility] [id number] [place] [address] 37678- 2546 Aug, Mood disorder F39 ; PTSD (post-traumatic stress disorder) F43.10 ; Borderline personality disorder F60.3 and Adjustment disorder with mixed anxiety and depressed mood F43.23 [facility] [id number] [address]- 1346 Jul, [facility] [id number] [address]- 9689 Jul, Mood disorder F39 ; PTSD (post-traumatic stress disorder) F43.10 and Borderline personality disorder F60.3 [address] [address]- 9430 Jul, [place] [address] [place] [address] 25376- 4692 Jun, Anxiety F41.9 ; ADHD (attention deficit hyperactivity disorder) F90.9 ; Night terror F51.4 ; Bulimia F50.2 ; Severe episode of recurrent major depressive disorder, with psychotic features F33.3 and PTSD ( post-traumatic stress disorder) F43.10 [place] [address] [place] [address] 60079- 3962 Jun, Borderline personality disorder F60.3 ; Mood disorder F39 and PTSD (post-traumatic stress disorder) F43.10 [place] [address] [place] [address] 02418- 5996 Jun, Anxiety F41.9 [place] [address] [place] [address] 96036- 2115 Jun, Anxiety F41.9 ; ADHD (attention deficit hyperactivity disorder) F90.9 ; Night terror F51.4 ; Bulimia F50.2 ; Severe episode of recurrent major depressive disorder, with psychotic features F33.3 and PTSD ( post-traumatic stress disorder) F43.10 [place] [address] [place] [address] 66894- 9488 Jun, ADHD (attention deficit hyperactivity disorder) F90.9 ; Night terror F51.4 ; Bulimia F50.2 ; Anxiety F41.9 ; Severe episode of recurrent major depressive disorder, with psychotic features F33.3 and PTSD ( post-traumatic stress disorder) F43.10 [place] [address] [address]- 0711 May, Anxiety F41.9 [place] [address], [place] [address]- 5482 May, PTSD (post-traumatic stress disorder) F43.10 and Borderline personality disorder F60.3 [facility] [address] [place] [address] 87331- 0612 Apr, [facility] [address] [id number] March, Dental examination Z01.20 and Dental caries K02.9 [facility] [id number] [place] [address] 72691- 4127 March, Dental examination Z01.20 [facility] [id number] [place] [address] 87643- 1845 March, Tooth abscess K04.7 and Tooth pain K08.89 [place] [id number] [place] [address] 97959- 1834 March, Borderline personality disorder F60.3 [facility] [address] [place] [address] 18366- 5747 March, ADHD (attention deficit hyperactivity disorder) F90.9 ; Night terror F51.4 ; Bulimia F50.2 and Anxiety F41.9 [facility] [address], [place] [address]- 7317 Feb, Borderline personality disorder F60.3 ; ADHD (attention deficit hyperactivity disorder) F90.9 ; Anxiety F41.9 ; Bulimia F50.2 ; Obsessive-compulsive disorder, unspecified type F42.9 and Night terror F51.4 [facility] [address] [address]- 0600 Feb, [facility] [id number] [place] [address] 77202- 2838 13 Feb, 2015 [facility] [id number] [place] [address] 40437- 8036 04 Jul, 2014 [facility] [id number] [place] [address]- 9451 Jul, [facility] [place] [facility] [address] [id number] [place] [address]- 5806 Jul, [facility] [place] [facility] [address] [id number] [place] 1483 Jul, [facility] [place] [facility] [address] [id number] [place] [address]- 2134 Jun, [facility] [place] [facility] [address] [id number] [place] [address]- 1841 Jun, [facility] [place] [facility] [address] [id number] [place] [address]- 2320 Jun, [facility] [place] [facility] [address] [id number] [place] [address]- 2364 Jun, [facility] [place] [facility] [address] [id number] [place] [address]- 2303 Apr, [facility] [place] [facility] [address] [id number] [place] [address]- 0525 Apr, [facility] [place] [facility] [address] [id number] [place] [address]- 9465 March, [facility] [place] [facility] [address] [id number] [place] [address]- 6089 March, [facility] [place] [facility] [address] [id number] [place] [address]- 2914 Jan, [facility] [place] [facility] [address] [id number] [place] [address]- 9844 Jan, [facility] [place] [facility] [address] [id number] [place] [address]- 0585 Jan, [facility] [place] [facility] [address] [id number] [place] [address]- 1123 Jan, [facility] [place] [facility] [address] [id number] [place] [address]- 8820 Jan, [facility] [place] [facility] [address] [id number] [place] [address]- 6106 Dec, [facility] [place] [facility] [address] [id number] [place] 0712 Dec, [facility] [place] [facility] [address] [id number] [place] [address]- 4241 Oct, [facility] [place] [facility] [address] [id number] [place] 2303 Oct, [facility] [place] [facility] [address] [id number] [place] [address]- 4967 Oct, [facility] [place] [facility] [address] [id number] [place] [address]- 0705 Oct, [facility] [place] [facility] [address] [id number] [place] [address]- 6574 Sep, [facility] [place] [facility] [address] [id number] [place] [address]- 2201 Sep, [facility] [place] [facility] [address] [id number] [place] [address]- 3000 Sep, [facility] [place] [facility] [address] [id number], [place] [address]- 6430 Aug, [facility] [place] [facility] [address] [id number], [place] [address]- 0938 Aug, [facility] [place] [facility] [address] [id number], [place] [address]- 2372 Aug, [facility] [place] [facility] [address] [id number], [place] [address]- 7488 Aug, [facility] [place] [facility] [address] [id number]- 6334 Aug, [facility] [place] [facility] [address] [id number], [place] [address]- 3186 Aug, [facility] [place] [facility] [address] [id number], [place] [address]- 0139 Aug, [facility] [address] [id number] [place] [address]- 2620 Jul, [facility] [place] [facility] [address] [id number] [place] [address]- 9396 Jun, [facility] [place] [facility] [address] [id number] [place] [address]- 8157 Jun, [facility] [place] [facility] [address] [id number] [place] [address]- 4644 Jun, [facility] [place] [facility] [address] [id number] [place] [address]- 5497 Jun, [facility] [place] [facility] [address] [id number] [place] [address]- 7185 Jun, [facility] [address] [id number] [place] [address]- 5269 Jun, [facility] [place] [facility] [address] [id number] [place] [address]- 8102 May, [facility] [place] [facility] [address] [id number] [place] [address]- 0598 May, [facility] [place] [facility] [address] [id number] [place] [address]- 4889 May, [facility] [place] [facility] [address] [id number] [place] [address]- 9776 May, [facility] [place] [facility] [address] [id number] [place] [address]- 6110 March, [facility] [place] [facility] [address] [id number] [place] [address]- 8831 March, [facility] [place] [facility] [address] [id number] [place] 6479 March, [facility] [place] [facility] [address] [id number] [place] [address]- 0915 Feb, [facility] [place] [facility] [address] [id number] [place] [address]- 8395 29 Feb, 2013 [facility] [address] [id number] [place] [address]- 9512 10 Feb, 2013 [facility] [place] [facility] [address] [id number] [place] [address]- 2454 04 Feb, 2013 [facility] [address] [id number] [place] [address]- 9096 27 Jan, 2013 [facility] [place] [facility] [address] [id number] [place] [address]- 2258 Jan, [facility] [address] [id number] [place] [address]- 7056 Jan, [facility] [address] [id number] [place] [address]- 7030 Dec, [facility] [address] [id number] [place] [address]- 7618 14 Dec, 2012 [facility] [address] [id number] [place] [address]- 6849 Dec, [facility] [address] [id number] [place] [address]- 4870 05 Dec, 2012 [facility] [address] [id number] [place] [address]- 2543 Dec, [facility] [address] [id number] [place] [address]- 3285 Nov, [facility] [place] [facility] [address] [id number] [place] [address]- 0387 Nov, [facility] [place] [facility] [address] [id number] [place] [address]- 6702 Nov, [facility] [place] [facility] [address] [id number] [place] [address]- 2834 14 Nov, 2012 [facility] [place] [facility] [address] [id number] [place] [address]- 0426 Oct, [facility] [place] [facility] [address] [id number] [place] [address]- 1036 Oct, [facility] [place] [facility] [address] [id number] [place] [address]- 2326 Oct, [facility] [place] [facility] [address] [id number] [place] [address]- 5616 Oct, [facility] [place] [facility] [address] [id number] [place] [address]- 6636 Oct, [facility] [place] [facility] [address] [id number] [place] [address]- 6896 Oct, [facility] [place] [facility] [address] [id number] [place] [address]- 5078 Oct, [facility] [place] [facility] [address] [id number] [place] [address]- 9047 Oct, [facility] [place] [facility] [address] [id number] [place] [address]- 5977 Oct, [facility] [place] [facility] [address] [id number] [place] [address]- 3569 Oct, [facility] [place] [facility] [address] [id number] [place] [address]- 3754 Oct, [facility] [place] [facility] [address] [id number] [place] [address] Oct, [facility] [place] [facility] [address] [id number] [place] [address] Oct, [facility] [place] [facility] [address] [id number] [place] [address] Sep, [facility] [place] [facility] [address] [id number] [place] [address] Sep, [facility] [place] [facility] [address] [id number] [place] [address] Sep, [facility] [place] [facility] [address] [id number] [place] [address] Sep, [facility] [place] [facility] [address] [id number] [place] [address] Sep, [facility] [place] [facility] [address] [id number] [place] [address] Sep, [facility] [place] [facility] [address] [id number] [place] [address] Sep, [facility] [place] [facility] [address] [id number] [place] [address] Sep, [facility] [place] [facility] [address] [id number] [place] [address], [place] [address] Sep, [facility] [place] [facility] [address] [id number] [place] [address] Sep, [facility] [place] [facility] [address] [facility] [id number] [place] [address] Sep, [facility] [place] [facility] [address] [id number] [place] [address] Sep, [facility] [place] [facility] [address] [facility] [id number] [place] [address] Aug, [facility] [place] [facility] [address] [facility] [id number] [place] [address] Aug, [facility] [place] [facility] [address] [facility] [id number] [place] [address] Aug, [facility] [place] [facility] [address] [id number] [place] [address] Aug, [facility] [place] [facility] [address] [facility] [id number] [place] [address] Aug, [facility] [place] [facility] [address] [facility] [id number] [place] [address] Aug, [facility] [place] [facility] [address] [facility] [id number] [place] [address] Aug, [facility] [place] [facility] [address] [id number] [place] [address]- [address] Aug, [facility] [place] [facility] [address] [id number] [place] [address] Aug, [facility] [place] [facility] [address] [id number] [place] [address] Aug, [facility] [place] [facility] [address] [id number] [place] [address] Aug, [facility] [place] [facility] [address] [id number] [place] [address] Aug, [facility] [place] [facility] [address] [id number] [place] [address] 28 Jul, 2012 [facility] [place] [facility] [address] [id number] [place] [address]- [address] 27 Jul, 2012 [facility] [place] [facility] [address] [id number] [place] [address] 21 Jul, 2012 [facility] [place] [facility] [address] [id number] [place] [address] 10 Jul, 2012 [facility] [facility] [address] [id number], [place] [address] 05 Jul, 2012 [facility] [address] [facility] [id number], [place] [address] Jul, [facility] [place] [address] [id number], [place] [address] Jun, [facility] [place] [facility] [address] [id number] [place] [address] Jun, [facility] [place] [facility] [address] [id number] [place] [address] Jun, [facility] [address] [facility] [id number], [place] [address] May, [facility] [place] [facility] [address] [id number], [place] [address] 25 May, 2012 [facility] [address] [id number] [place] [address] 14 May, 2012 [facility] [place] [facility] [address] [id number] [place] [address]365 09 May, 2012 [facility] [facility] [address] [id number] [place] [address] 06 May, 2012 [facility] [place] [facility] [address] [id number] [place] [address] 05 May, 2012 [facility] [place] [facility] [address] [id number] [place] [address] 48[address] 30 Apr, 2012 [facility] [place] [facility] [address] [id number] [place] [address] 23 Feb, 2012 [facility] [address] [id number] [place] [address] 18 Feb, 2012 [facility] [address] [id number] [place] [address] 4144 11 Feb, 2012 [facility] [place] [facility] [address] [id number] [place] [address]- 2140 10 Feb, 2012 [facility] [address] [facility] [id number] [place] [address] 16 Jan, 2012 [facility] [place] [facility] [address] [id number] [place] [address]- 8418 Jan, [facility] [place] [facility] [address] [id number] [place] [address] 29 Dec, 2011 [facility] [facility] [address] [id number] [place] [address]- 7159 28 Dec, 2011 [facility] [place] [facility] [address] [id number] [place] [address]- 3507 21 Dec, 2011 [facility] [address] [facility] [id number] [place] [address] 2919 14 Dec, 2011 [facility] [address] [id number] [place] [address] 3924 14 Dec, 2011 [facility] [address] [id number] [place] [address]- 3756 13 Dec, 2011 [facility] [address] [id number] [place] [address]- 1996 09 Dec, 2011 [facility] [address] [id number] [place] [address]- 1126 Dec, [facility] [facility] [address] [id number] [place] [address] 8215 Dec, [facility] [address] [id number] [place] [address] 9606 Nov, [facility] [address] [id number] [place] [address]- 4653 Nov, [facility] [place] [facility] [address] [id number] [place] [address] 0760 Nov, [facility] [facility] [address] [id number] [place] [address]- 7512 Nov, [facility] [address] [id number] [place] [address]- 0489 Nov, [facility] [address] [id number] [place] [address] 2465 Nov, [facility] [address] [id number] [place] [address] 4918 Nov, [facility] [address] [id number] [place] [address] 2710 Nov, [facility] [facility] [address] [id number] [place] [address] Nov, [facility] [facility] [address] [id number] [place] [address] 6904 Oct, [facility] [address] [id number], [place] [address] Oct, [facility] [address] [id number] [place] [address]- 7661 Oct, [facility] [address] [id number], [place] [address] 244[address] Oct, [facility] [address] [facility] [id number] [place] [address]- 2060 Oct, [facility] [address] [id number] [place] [address]- 5927 Oct, [facility] [address] [facility] [id number] [place] [address], [place] [address]- 9432 Sep, [facility] [address] [facility] [id number] [place] [address]- 8435 Aug, [facility] [address] [facility] [id number], [place] [address] Jul, [facility] [address] [facility] [id number], [place] [address] 7125 Nov, [facility] [address] [id number], [place] [address] Nov, [facility] [address] [id number], [place] [address] Oct, [facility] [address] [facility] [id number], [place] [address]- 8062 Sep, [facility] [address] [facility] [id number], [place] [address]- 3362 Sep, [facility] [address] [facility] [id number], [place] [address]- 5571 18 Aug, 2010 [facility] [address] [facility] [id number], [place] [address]- 9177 14 Aug, 2010 [facility] [address] [facility] [id number], [place] [address] 3421 14 Aug, 2010 [facility] [id number] [address] [address] Feb, [facility] [id number], [place] [address] Dec, [facility] [id number] [address] Oct, [facility] [id number] [address] [address] Oct, [facility] [id number] [address] Oct, [facility] [id number] [place] [address]- 4[address] Sep, [facility] [id number] [place] [address]- 9[address] Sep, [facility] [id number], [place] [address]77 Sep, [facility] [id number], [place] [address]11 Aug, [facility] [id number], [place] [address] Aug, IMMUNIZATIONS No Known Immunizations SOCIAL HISTORY Never Assessed REASON FOR VISIT Repository Medication PLAN OF CARE VITAL SIGNS MEDICATIONS Unknown [...] EGD Hospitalization History mental health issues x2 [facility] in [place] 2016 & 02/2017 Hospitalization History Surgery(s)/Childbirth(s)
--- OUTSIDE RECORDS SUMMARY | 2018-08-03 08:19 | XMS REPORT ---
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29 Active 65726893 Problem Lumbago with sciatica, right side M54.41 Active 626334704 Problem Anxiety F41.9 Active 64890903 Problem PTSD (post-traumatic stress disorder) F43.10 Active 23861068 Problem Borderline personality disorder F60.3 Active 92650995 Problem Severe episode of recurrent major depressive disorder, with psychotic features F33.3 Active 11383296 Problem Night terror F51.4 Active 17242857 Problem Mood disorder F39 Active 82962851 ALLERGIES Substance Reaction Event Type Date Status Pseudoephedrine HCl ER unknown Drug Allergy Jun, Active Phenytoin rash Drug Allergy Jun, Active Penicillamine anaphylaxis Drug Allergy Jun, Active Cephalexin anaphylaxis Drug Allergy Jun, Active Albuterol unknown Drug Allergy Jun, Active ENCOUNTERS Encounter Location Date Diagnosis [facility] [address] [facility] [id number], [place] [address] Aug, [facility] [address] [facility] [id number], [place] [address] 11 Jul, 2018 Anxiety F41.9 and Skin tags, multiple acquired L91.8 [place] [id number] [place] [address] 36805- 3211 Jul, BMI 45.0-49.9, adult Z68.42 ; Anxiety F41.9 ; Acute pain of left foot M79.672 and Acute swimmer''s ear of right side H60.331 [place] [address] [address]- [address] Jun, [place] [address] 87055- 9155 Jun, PTSD (post-traumatic stress disorder) F43.10 ; Mood disorder F39 ; Borderline personality disorder F60.3 and Cannabis use disorder, mild, abuse F12.10 [place] [id number] [place] [address] 77344- 8763 Jun, [place] [address] 51726- 1180 Jun, PTSD (post-traumatic stress disorder) F43.10 [place] [id number] [place] [address] 49413- 8279 Jun, [place] adverse reaction T43.595A and Sprain of anterior talofibular ligament of left ankle, initial encounter S93.492A [place] [id number] [place] [address] 30441- 8464 Jun, [place] [id number] [place] [address] 60542- 8093 May, [place] [id number] [place] [address] 57767- 3322 May, Skin tags, multiple acquired L91.8 ; Dysmenorrhea N94.6 and Acute non-recurrent maxillary sinusitis J01.00 [place] [id number] [place] [address] 13755- 6330 May, PTSD (post-traumatic stress disorder) F43.10 [place] [id number] [place] [address] 72858- 9055 May, Other air bag buffer (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 [place] [id number] [place] [address] 14569- 5335 May, PTSD (post-traumatic stress disorder) F43.10 ; Mood disorder F39 ; Borderline personality disorder F60.3 and Cannabis use disorder, mild, abuse F12.10 [place] [id number] [place] [address] 70838- 0692 May, BMI 40.0-44.9, adult Z68.41 [place] [address] 39139- 2854 18 Apr, 2018 BMI 40.0-44.9, adult Z68.41 [place] [id number] [place] [address] 31539- 7451 14 Apr, 2018 Acute non-recurrent maxillary sinusitis J01.00 [place] [id number] [place] [address] 31616- 7757 Apr, PTSD (post-traumatic stress disorder) F43.10 ; Mood disorder F39 ; Borderline personality disorder F60.3 ; Cannabis use disorder, mild, abuse F12.10 and Other shelter (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 [place] [id number] [place] [address] 59443- 2026 Apr, [place] [id number] [place] [address] 62487- 9423 Apr, Annual physical exam Z00.00 and High risk medication use Z79.899 [place] [id number] [place] [address] 02505- 7670 Apr, PTSD (post-traumatic stress disorder) F43.10 [place] [id number] [place] [address] 11252- 3542 Apr, [place] [id number] [place] [address] 40849- 3358 March, BMI 40.0-44.9, adult Z68.41 ; Morbid obesity due to excess calories E66.01 ; Lumbago with sciatica, right side M54.41 and Other chronic pain G89.29 [facility] [address] [address] March, PTSD (post-traumatic stress disorder) F43.10 [place] [id number] [place] [address] 03871- 5486 March, PTSD (post-traumatic stress disorder) F43.10 ; Mood disorder F39 ; Borderline personality disorder F60.3 and Cannabis use disorder, mild, abuse F12.10 [place] [id number] [place] [address] 41011- 5968 Feb, [place] [id number] [place] [address] 11946- 0520 Feb, [facility] [address] [place] [address] Feb, Breast cancer screening Z12.31 [place] [id number] [place] [address] 58424- 5707 Feb, Mood disorder F39 and PTSD (post-traumatic stress disorder) F43.10 [place] [address], [place] [address] 7368 Feb, PTSD (post-traumatic stress disorder) F43.10 ; Mood disorder F39 ; Borderline personality disorder F60.3 and Cannabis use disorder, mild, abuse F12.10 [place] [address] [address] Feb, Schizo affective schizophrenia F25.0 ; Adjustment disorder with mixed anxiety and depressed mood F43.23 ; Night terror F51.4 ; Anxiety F41.9 and Borderline personality disorder F60.3 [facility] [address] [place] [address] 59535- 5426 Feb, [place] [id number] [place] [address] 55322- 4545 Feb, Mood disorder F39 [place] [address] 16087- 6866 Feb, Annual physical exam Z00.00 ; BMI 40.0-44.9, adult Z68.41 and Nipple discharge N64.52 [place] [address] 71446- 7462 Jan, Schizo affective schizophrenia F25.0 ; Adjustment disorder with mixed anxiety and depressed mood F43.23 ; Night terror F51.4 ; Anxiety F41.9 and Borderline personality disorder F60.3 [place] [address] 60022- 6838 Jan, Mood disorder F39 ; PTSD (post-traumatic stress disorder) F43.10 ; Borderline personality disorder F60.3 and High risk medication use Z79.899 [place] [address] 63446- 4851 Dec, Anxiety F41.9 and Borderline personality disorder F60.3 [place] [address] 81320- 8663 Dec, [place] [address] 39367- 1768 Dec, Anxiety F41.9 and Borderline personality disorder F60.3 [place] [id number] [place] [address] 26257- 0822 Dec, [place] [address] 67982- 8718 Dec, [place] [address] [address] [id number]- 1503 Nov, Acute non-recurrent maxillary sinusitis J01.00 ; Mood disorder F39 and Sciatica, unspecified side M54.30 [place] [address] [place] [address]- 67[address] Nov, Mood disorder F39 ; PTSD (post-traumatic stress disorder) F43.10 and Borderline personality disorder F60.3 [facility] [id number] [place] [address] 37572- 8111 Nov, Anxiety F41.9 and Borderline personality disorder F60.3 [facility] [address] 35268- 8162 Nov, [facility] [id number] [place] [address] 28845- 7470 Nov, Anxiety F41.9 and Sciatica, unspecified side M54.30 [place] [id number] [place] [address] 41533- 7695 Oct, Anxiety F41.9 [place] [address] 60031- 7660 Oct, Mood disorder F39 ; PTSD (post-traumatic stress disorder) F43.10 ; Borderline personality disorder F60.3 and High risk medication use Z79.899 [facility] [address] [id number] Oct, 2017 Dental caries K02.9 and Dental examination Z01.20 [place] [id number] [place] [address] 34622- 6582 Sep, Dysuria R30.0 and Abdominal pain, right lower quadrant R10.31 [facility] [id number] [place] [address] 42081- 2815 Aug, Mood disorder F39 ; PTSD (post-traumatic stress disorder) F43.10 and Borderline personality disorder F60.3 [place] [address] 35253- 7096 Aug, [facility] [id number] [place] [address] 61736- 9958 Aug, [facility] [address] [place] [address]- 5256 Aug, Severe episode of recurrent major depressive disorder, with psychotic features F33.3 ; PTSD (post-traumatic stress disorder) F43.10 ; Adjustment disorder with mixed anxiety and depressed mood F43.23 and Borderline personality disorder F60.3 [facility] [address] [place] [address] 88445- 3126 Aug, Mood disorder F39 ; PTSD (post-traumatic stress disorder) F43.10 and Borderline personality disorder F60.3 [facility] [address] [place] [address] 29071- 8925 Aug, [facility] [id number] [place] [address] 72159- 5469 Aug, Bipolar 1 disorder F31.9 and Schizo affective schizophrenia F25.0 [facility] [id number] [place] [address] 24354- 2398 Aug, Mood disorder F39 [facility] [id number] [place] [address] 49736 2546 Aug, Bipolar 1 disorder F31.9 and Schizo affective schizophrenia F25.0 [facility] [id number] [place] [address] 50292- 8879 Aug, Bipolar 1 disorder F31.9 and Schizo affective schizophrenia F25.0 [facility] [address], [place] [address]- 7821 Aug, [facility] [id number] [place] [address] 78819 2546 Aug, PTSD (post-traumatic stress disorder) F43.10 and Borderline personality disorder F60.3 [facility] [id number] [place] [address] [id number]- 7086 Aug, [facility] [id number] [place] [address] 25995- 6167 Aug, Mood disorder F39 ; PTSD (post-traumatic stress disorder) F43.10 ; Borderline personality disorder F60.3 and Adjustment disorder with mixed anxiety and depressed mood F43.23 [place] [address] [place] [address] 72262- 7020 Jul, [facility] [id number] [place] [address] 34865- 7614 Jul, Mood disorder F39 ; PTSD (post-traumatic stress disorder) F43.10 and Borderline personality disorder F60.3 [place] [id number] [place] [address] 10428- 0335 Jul, [place] [id number] [place] [address] 75251- 3088 Jun, Anxiety F41.9 ; ADHD (attention deficit hyperactivity disorder) F90.9 ; Night terror F51.4 ; Bulimia F50.2 ; Severe episode of recurrent major depressive disorder, with psychotic features F33.3 and PTSD ( post-traumatic stress disorder) F43.10 [place] [address] [place] [address] 89870- 8449 Jun, Borderline personality disorder F60.3 ; Mood disorder F39 and PTSD (post-traumatic stress disorder) F43.10 [place] [address], [place] [address]- 5364 Jun, Anxiety F41.9 [place] [address] [place] [address] 67762- 9586 Jun, Anxiety F41.9 ; ADHD (attention deficit hyperactivity disorder) F90.9 ; Night terror F51.4 ; Bulimia F50.2 ; Severe episode of recurrent major depressive disorder, with psychotic features F33.3 and PTSD ( post-traumatic stress disorder) F43.10 [place] [address], [place] [address]- 5005 Jun, ADHD (attention deficit hyperactivity disorder) F90.9 ; Night terror F51.4 ; Bulimia F50.2 ; Anxiety F41.9 ; Severe episode of recurrent major depressive disorder, with psychotic features F33.3 and PTSD ( post-traumatic stress disorder) F43.10 [facility] [address] [place] [address] 16661- 4259 May, Anxiety F41.9 [facility] [id number] [place] [address] 55645- 1137 May, PTSD (post-traumatic stress disorder) F43.10 and Borderline personality disorder F60.3 [facility] [id number] [place] [address] 19409- 4507 Apr, [facility] [id number] [place] [address] [id number] March, Dental examination Z01.20 and Dental caries K02.9 [place] [id number] [place] [address] 17069- 5421 March, Dental examination Z01.20 [place] [id number] [place] [address] 00106- 2938 March, Tooth abscess K04.7 and Tooth pain K08.89 [place] [id number] [place] [address] 68816- 3860 March, Borderline personality disorder F60.3 [facility] [address] [place] [address] 56799- 2901 March, ADHD (attention deficit hyperactivity disorder) F90.9 ; Night terror F51.4 ; Bulimia F50.2 and Anxiety F41.9 [facility] [address] [place] [address] 36480- 1943 Feb, Borderline personality disorder F60.3 ; ADHD (attention deficit hyperactivity disorder) F90.9 ; Anxiety F41.9 ; Bulimia F50.2 ; Obsessive-compulsive disorder, unspecified type F42.9 and Night terror F51.4 [facility] [address] [place] [address] 91974- 9303 Feb, [facility] [id number] [place] [address]- 3223 Feb, [facility] [address] [id number] [place] [address]- 8870 Jul, [facility] [place] [facility] [address] [id number] [place] [address]- 1909 Jul, [facility] [place] [facility] [address] [id number] [place] [address]- 3644 Jul, [facility] [place] [facility] [address] [id number] [place] [address]- 6475 Jul, [facility] [place] [facility] [address] [id number] [place] [address]- 0669 Jun, [facility] [place] [facility] [address] [id number] [place] [address]- 0605 Jun, [facility] [address] [id number] [place] [address]- 1872 Jun, [facility] [address] [id number] [place] [address]- 2328 Jun, [facility] [place] [facility] [address] [id number] [place] [address]- 0307 Apr, [facility] [address] [id number] [place] [address]- 9612 Apr, [facility] [place] [facility] [address] [id number] [place] [address]- 5956 March, [facility] [place] [facility] [address] [id number] [place] [address]- 4358 March, [facility] [place] [facility] [address] [id number] [place] [address]- 5469 Jan, [facility] [place] [facility] [address] [id number] [place] [address]- 7610 Jan, [facility] [place] [facility] [address] [id number] [place] [address]- 2770 Jan, [facility] [place] [facility] [address] [id number] [place] [address]- 9266 Jan, [facility] [place] [facility] [address] [id number] [place] [address]- 3011 Jan, [facility] [place] [facility] [address] [id number] [place] [address]- 4301 Dec, [facility] [place] [facility] [address] [id number] [place] [address]- 0814 Dec, [facility] [place] [facility] [address] [id number] [place] 7596 Oct, [facility] [place] [facility] [address] [id number] [place] [address]- 7653 Oct, [facility] [place] [facility] [address] [id number] [place] [address]- 0721 Oct, [facility] [place] [facility] [address] [id number], [place] [address]- 0924 Oct, [facility] [place] [facility] [address] [id number] [place] [address]- 9800 Sep, [facility] [place] [facility] [address] [id number], [place] [address]- 1092 Sep, [facility] [place] [facility] [address] [id number], [place] [address]- 1820 Sep, [facility] [place] [facility] [address] [id number], [place] [address]- 7796 Aug, [facility] [place] [facility] [address] [id number], [place] [address]- 0863 Aug, [facility] [place] [facility] [address] [id number], [place] [address]- 0770 Aug, [facility] [place] [facility] [address] [id number], [place] [address]- 3878 Aug, [facility] [place] [facility] [address] [id number], [place] [address]- 0057 Aug, [facility] [address] [id number] [place] [address]- 3211 Aug, [facility] [place] [facility] [address] [id number] [place] [address]- 5801 Aug, [facility] [place] [facility] [address] [id number] [place] [address]- 4448 Jul, [facility] [place] [facility] [address] [id number] [place] [address]- 6064 Jun, [facility] [place] [facility] [address] [id number] [place] [address]- 7176 Jun, [facility] [place] [facility] [address] [id number] [place] [address]- 2037 Jun, [facility] [address] [id number] [place] [address]- 8903 Jun, [facility] [place] [facility] [address] [id number] [place] [address]- 3350 Jun, [facility] [place] [facility] [address] [id number] [place] [address]- 2893 Jun, [facility] [place] [facility] [address] [id number] [place] [address]- 7536 May, [facility] [place] [facility] [address] [id number] [place] [address]- 7485 May, [facility] [place] [facility] [address] [id number] [place] [address]- 5459 May, [facility] [place] [facility] [address] [id number] [place] [address]- 3093 May, [facility] [place] [facility] [address] [id number] [place] [address]- 5155 March, [facility] [place] [facility] [address] [id number] [place] [address]- 4838 March, [facility] [place] [facility] [address] [id number] [place] [address]- 2666 March, [facility] [address] [id number] [place] [address]- 7093 30 Feb, 2013 [facility] [place] [facility] [address] [id number] [place] [address]- 8774 29 Feb, 2013 [facility] [place] [facility] [address] [id number] [place] [address]- 0203 Feb, [facility] [place] [facility] [address] [id number] [place] [address]- 4027 Feb, [facility] [place] [facility] [address] [id number] [place] [address]- 3350 Jan, [facility] [place] [facility] [address] [id number] [place] [address]- 6479 Jan, [facility] [place] [facility] [address] [id number] [place] [address]- 7405 Jan, [facility] [place] [facility] [address] [id number] [place] [address]- 2485 Dec, [facility] [place] [facility] [address] [id number] [place] [address]- 1270 14 Dec, 2012 [facility] [place] [facility] [address] [id number] [place] [address]- 3657 Dec, [facility] [place] [facility] [address] [id number] [place] [address]- 8724 Dec, [facility] [place] [facility] [address] [id number] [place] [address]- 5613 Dec, [facility] [place] [facility] [address] [id number] [place] [address]- 7322 Nov, [facility] [place] [facility] [address] [id number] [place] [address]- 9440 Nov, [facility] [place] [facility] [address] [id number] [place] [address]- 9351 Nov, [facility] [address] [id number] [place] Nov, [facility] [place] [facility] [address] [id number] [place] [address]- 2626 Oct, [facility] [place] [facility] [address] [id number] [place] [address]- 4386 Oct, [facility] [place] [facility] [address] [id number] [place] [address]- 2796 Oct, [facility] [place] [facility] [address] [id number] [place] [address]- 8406 Oct, [facility] [place] [facility] [address] [id number] [place] [address]- 6116 Oct, [facility] [place] [facility] [address] [id number] [place] [address] Oct, [facility] [place] [facility] [address] [id number] [place] [address] Oct, [facility] [place] [facility] [address] [id number] [place] [address] Oct, [facility] [place] [facility] [address] [id number] [place] [address] Oct, [facility] [place] [facility] [address] [id number] [place] [address] Oct, [facility] [place] [facility] [address] [id number] [place] [address] Oct, [facility] [place] [facility] [address] [id number] [place] [address] Oct, [facility] [place] [facility] [address] [id number] [place] [address] Oct, [facility] [place] [facility] [address] [id number] [place] [address] Sep, [facility] [place] [facility] [address] [id number] [place] [address] Sep, [facility] [place] [facility] [address] [id number] [place] [address] Sep, [facility] [place] [facility] [address] [id number] [place] [address] Sep, [facility] [place] [facility] [address] [id number] [place] [address] Sep, [facility] [place] [facility] [address] [id number] [place] [address] Sep, [facility] [place] [facility] [address] [id number] [place] [address] Sep, [facility] [place] [facility] [address] [id number] [place] [address] Sep, [facility] [place] [facility] [address] [id number] [place] [address] Sep, [facility] [place] [facility] [address] [id number] [place] [address] Sep, [facility] [place] [facility] [address] [id number] [place] [address] Sep, [facility] [place] [facility] [address] [facility] [id number] [place] [address] Sep, [facility] [place] [facility] [address] [id number] [place] [address] Aug, [facility] [place] [facility] [address] [id number] [place] [address] Aug, [facility] [place] [facility] [address] [id number] [place] [address] Aug, [facility] [place] [facility] [address] [id number] [place] [address] Aug, [facility] [place] [facility] [address] [id number] [place] [address] 14 Aug, 2012 [facility] [place] [facility] [address] [id number] [place] [address] 14 Aug, 2012 [facility] [place] [facility] [address] [id number] [place] [address] Aug, [facility] [place] [facility] [address] [id number] [place] [address] Aug, [facility] [place] [facility] [address] [id number] [place] [address] Aug, [facility] [place] [facility] [address] [id number] [place] [address] Aug, [facility] [place] [facility] [address] [id number] [place] [address] Aug, [facility] [place] [facility] [address] [id number] [place] [address] Aug, [facility] [place] [facility] [address] [id number] [place] [address]- [address] 28 Jul, 2012 [facility] [place] [facility] [address] [id number] [place] [address] 27 Jul, 2012 [facility] [place] [facility] [address] [id number] [place] [address] 21 Jul, 2012 [facility] [place] [facility] [address] [id number] [place] [address] 6586 10 Jul, 2012 [facility] [place] [facility] [address] [id number], [place] [address] 05 Jul, 2012 [facility] [place] [facility] [address] [id number] [place] [address]85 04 Jul, 2012 [facility] [place] [facility] [address] [id number] [place] [address] 1380 27 Jun, 2012 [facility] [place] [facility] [address] [id number] [place] [address] 78[address] Jun, [facility] [place] [facility] [address] [id number] [place] [address] 7314 05 Jun, 2012 [facility] [place] [facility] [address] [id number] [place] [address]041 May, [facility] [place] [facility] [address] [id number] [place] [address] May, [facility] [place] [facility] [address] [id number] [place] [address]26 May, [facility] [place] [facility] [address] [id number] [place] [address]35 May, [facility] [place] [facility] [address] [id number] [place] [address] 3523 May, [facility] [place] [facility] [address] [id number] [place] [address] 1716 May, [facility] [address] [id number] [place] [address]- 2524 30 Apr, 2012 [facility] [place] [facility] [address] [id number] [place] [address] 7406 23 Feb, 2012 [facility] [place] [facility] [address] [id number] [place] [address] 8155 18 Feb, 2012 [facility] [place] [facility] [address] [id number] [place] [address]- 5282 11 Feb, 2012 [facility] [place] [facility] [address] [id number] [place] [address]- 1669 10 Feb, 2012 [facility] [place] [facility] [address] [id number] [place] [address]- 0016 16 Jan, 2012 [facility] [place] [facility] [address] [id number] [place] [address]- 8060 12 Jan, 2012 [facility] [place] [facility] [address] [id number] [place] [address] 9756 29 Dec, 2011 [facility] [place] [facility] [address] [id number] [place] [address] 9206 28 Dec, 2011 [facility] [place] [facility] [address] [id number] [place] [address] 2546 Dec, [facility] [place] [facility] [address] [id number] [place] [address]- 5986 14 Dec, 2011 [facility] [place] [facility] [address] [id number] [place] [address] 2546 14 Dec, 2011 [facility] [place] [facility] [address] [id number] [place] [address] 2546 13 Dec, 2011 [facility] [place] [facility] [address] [id number] [place] [address]- 0537 09 Dec, 2011 [facility] [place] [facility] [address] [id number] [place] [address] 5916 07 Dec, 2011 [facility] [place] [facility] [address] [id number] [place] [address] 5646 02 Dec, 2011 [facility] [place] [facility] [address] [id number] [place] [address] 2813 30 Nov, 2011 [facility] [place] [facility] [address] [id number] [place] [address]- 0052 Nov, [facility] [place] [facility] [address] [id number] [place] [address] 7868 24 Nov, 2011 [facility] [place] [facility] [address] [id number] [place] [address] 4232 Nov, [facility] [place] [facility] [address] [id number] [place] [address] 2546 17 Nov, 2011 [facility] [place] [facility] [address] [id number] [place] [address] 5136 16 Nov, 2011 [facility] [place] [facility] [address] [id number] [place] [address] 2724 10 Nov, 2011 [facility] [place] [facility] [address] [id number] [place] [address]- 5560 09 Nov, 2011 [facility] [place] [facility] [address] [id number] [place] [address] 9480 Nov, [facility] [address] [id number] [place] [address] 9711 Oct, [facility] [place] [facility] [address] [id number] [place] [address] 3143 Oct, [facility] [place] [facility] [address] [facility] [id number] [place] [address]- 1125 Oct, [facility] [place] [facility] [address] [id number] [place] [address] 4034 Oct, [facility] [place] [facility] [address] [id number] [place] [address] 8637 Oct, [facility] [place] [facility] [address] [id number] [place] [address]- 6661 Oct, [facility] [place] [facility] [address] [facility] [id number] [place] [address] 0911 Sep, [facility] [place] [facility] [address] [id number] [place] [address] 5196 Aug, [facility] [place] [facility] [address] [id number] [place] [address] 1754 Jul, [facility] [place] [facility] [address] [facility] [id number] [place] [address]- 0720 Nov, [facility] [place] [facility] [address] [id number] [place] [address]- 1020 Nov, [facility] [place] [facility] [address] [id number], [place] [address] 6898 Oct, [facility] [place] [facility] [address] [id number] [place] [address] 7840 Sep, [facility] [place] [facility] [address] [facility] [id number] [place] [address]- 4244 Sep, [facility] [place] [facility] [address] [facility] [id number], [place] [address] 18 Aug, 2010 [facility] [place] [facility] [id number] [place] [address] 14 Aug, 2010 [facility] [address] [place] [address] 14 Aug, 2010 [facility] [address], [place] [address] Feb, [facility] [id number] [place] [address]- 7510 10 Dec, 2009 [facility] [id number] [place] [address]- 6155 Oct, [facility] [id number] [place] [address]- 1472 Oct, [facility] [id number] [place] [address]- 7153 Oct, [facility] [id number] [place] [address]- 2875 Sep, [facility] [id number] [place] [address]- 3959 Sep, [facility] [id number] [place] [address]- 8711 Sep, [facility] [address], [place] [address] Aug, [facility] [address] [place] [address] 1656 Aug, IMMUNIZATIONS No Known Immunizations SOCIAL HISTORY Never Assessed REASON FOR VISIT LAUREL f/u JENI Hess- wants medical to do this PLAN OF CARE Activity Details Follow Up 4 Weeks Reason:LAUREL f/u VITAL SIGNS Height 63 in 2018-06-20 Weight 257.3 lbs 2018-06-20 Heart Rate 120 bpm 2018-06-20 Respiratory Rate 22 2018-06-20 BMI 45.57 kg/m2 2018-06-20 Blood pressure systolic 122 mmHg 2018-06-20 Blood pressure diastolic 88 mmHg 2018-06-20 MEDICATIONS Medication Instructions Dosage Frequency Start Date End Date Duration Status Amitriptyline HCl 50 MG Orally Once a day at bedtime 1 tablet Active Desvenlafaxine Succinate ER 100 MG Orally in morning 1 tablet Active Atorvastatin Calcium 20 mg Orally Once a day 1 tablet 24h Apr, 30 day(s) Active Klonopin 1 MG Orally twice a day as needed for anxiety 1 tablet 30 days Active Seroquel 200 mg Orally Once a day at bedtime for two weeks, then 1/2 tablet at bedtime for two weeks, then stop. Tapering out. 1 tablet Jun, 30 day(s) Active Gabapentin 800 MG Orally 3 times a day 1 tablet 8h Active Diclofenac Sodium 75 MG Orally Twice a day as needed 1 tablet with food or milk March, 30 day(s) Active Axson 5-325 MG Orally every 6 hrs 1 tablet as needed 6h May, Not-Taking Tramadol HCl 50 mg Orally every 6 hrs 1 tablet as needed 6h March, Not-Taking Voltaren 1 % Transdermal 2 times a day apply 4gm as needed to lower back as needed 12h Nov, 30 days Active Axson 5-325 MG Orally every 6 hrs 1 tablet as needed 6h Jun, Not-Taking Rexulti 1 MG Orally Once a day 1 tablet 24h Jun, 30 day(s) Active RESULTS No Results PROCEDURES [...] mental health issues x2 Ward Unit in [place] 2016 & 02/2017 Hospitalization History Surgery(s)/Childbirth(s)
--- OUTSIDE RECORDS SUMMARY | 2018-08-03 08:19 | XMS REPORT ---
Author Author RACHAEL CHEATHAM Organization [facility] Address [address] [place] [address] Care Team Providers Care Telephone Operators Supervisor Name Role Phone RACHAEL CHEATHAM Unavailable PROBLEMS Type Condition ICD9-CM Code BZP20-BB Code Onset Dates Condition Status SNOMED Code Problem Adjustment disorder with mixed anxiety and depressed mood F43.23 Active 53868340 Problem Bipolar 1 disorder F31.9 Active 185192824 Problem Schizo affective schizophrenia F25.0 Active 921759418 Problem Dysmenorrhea N94.6 Active 625537865 Problem Morbid obesity due to excess calories E66.01 Active 987521266 Problem Cannabis use disorder, mild, abuse F12.10 Active 18082881 Problem Sciatica, unspecified side M54.30 Active 55169669 Problem Other chronic pain G89.29 Active 65240987 Problem Lumbago with sciatica, right side M54.41 Active 591831296 Problem Anxiety F41.9 Active 82745733 Problem PTSD (post-traumatic stress disorder) F43.10 Active 75636932 Problem Borderline personality disorder F60.3 Active 63398227 Problem Severe episode of recurrent major depressive disorder, with psychotic features F33.3 Active 77028764 Problem Night terror F51.4 Active 18204172 Problem Mood disorder F39 Active 69076139 ALLERGIES No Information ENCOUNTERS Encounter Location Date Diagnosis [facility] [id number] [address] Aug, [facility] [id number] [place] [address] 94449- 0235 Jul, Anxiety F41.9 and Skin tags, multiple acquired L91.8 [facility] [id number] [address] 05 Jul, 2018 BMI 45.0-49.9, adult Z68.42 ; Anxiety F41.9 ; Acute pain of left foot M79.672 and Acute swimmer''s ear of right side H60.331 [facility] [id number] [place] [address] 42494- 2211 Jun, [facility] [id number] [place] [address] 51508- 4570 Jun, PTSD (post-traumatic stress disorder) F43.10 ; Mood disorder F39 ; Borderline personality disorder F60.3 and Cannabis use disorder, mild, abuse F12.10 [facility] [id number] [place] [address] 18614- 2577 Jun, [place] [address] 64099- 7695 Jun, PTSD (post-traumatic stress disorder) F43.10 [place] [address] 96179- 9710 Jun, [place] adverse reaction T43.595A and Sprain of anterior talofibular ligament of left ankle, initial encounter S93.492A [facility] [id number] [place] [address] 42873- 0059 Jun, [place] [address] 30239- 7503 May, [place] [id number] [place] [address] 36603- 2869 May, Skin tags, multiple acquired L91.8 ; Dysmenorrhea N94.6 and Acute non-recurrent maxillary sinusitis J01.00 [place] [facility] [id number] [place] [address] 22092- 7231 May, PTSD (post-traumatic stress disorder) F43.10 [facility] [id number] [place] [address] 51297- 6083 May, Other buttermaker 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 [place] [address] 97013- 0277 May, PTSD (post-traumatic stress disorder) F43.10 ; Mood disorder F39 ; Borderline personality disorder F60.3 and Cannabis use disorder, mild, abuse F12.10 [facility] [id number] [place] [address] 98043- 9939 May, BMI 40.0-44.9, adult Z68.[address] [address]80- 7254 18 Apr, 2018 BMI 40.0-44.9, adult Z68.41 [facility] [id number] [place] [address] 78889- 2109 14 Apr, 2018 Acute non-recurrent maxillary sinusitis J01.[address] 62331- 6692 11 Apr, 2018 PTSD (post-traumatic stress disorder) F43.10 ; Mood disorder F39 ; Borderline personality disorder F60.3 ; Cannabis use disorder, mild, abuse F12.10 and Other 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 [facility] [id number] [place] [address] 65217- 9268 08 Apr, [address] 40427- 8916 07 Apr, 2018 Annual physical exam Z00.00 and High risk medication use Z79.899 [id number] [place] [address] 67858- 2169 07 Apr, 2018 PTSD (post-traumatic stress disorder) F43.10 [facility] [id number] [place] [address] 11521- 9685 Apr, [address] 26081- 8511 March, BMI 40.0-44.9, adult Z68.41 ; Morbid obesity due to excess calories E66.01 ; Lumbago with sciatica, right side M54.41 and Other chronic pain G89.29 [address] [address] 287[address] March, PTSD (post-traumatic stress disorder) F43.10 [facility] [id number] [place] [address] 79928- 2146 March, PTSD (post-traumatic stress disorder) F43.10 ; Mood disorder F39 ; Borderline personality disorder F60.3 and Cannabis use disorder, mild, abuse F12.10 [place] [id number] [place] [address] 98013- 1388 Feb, [place] [id number] [place] [address] 97460- 9252 Feb, [facility] [address] [place] [id number] [place] [address] Feb, Breast cancer screening Z12.31 [place] [id number] [place] [address] 76853- 4468 Feb, Mood disorder F39 and PTSD (post-traumatic stress disorder) F43.10 [facility] [address] [address]- 1368 Feb, PTSD (post-traumatic stress disorder) F43.10 ; Mood disorder F39 ; Borderline personality disorder F60.3 and Cannabis use disorder, mild, abuse F12.10 [place] [address] [address] 2260 Feb, Schizo affective schizophrenia F25.0 ; Adjustment disorder with mixed anxiety and depressed mood F43.23 ; Night terror F51.4 ; Anxiety F41.9 and Borderline personality disorder F60.3 [place] [id number] [place] [address] 94093- 9968 Feb, [place] [id number] [place] [address] 21728- 4267 Feb, Mood disorder F39 [facility] [address] [place] [address] 08611- 2966 Feb, Annual physical exam Z00.00 ; BMI 40.0-44.9, adult Z68.41 and Nipple discharge N64.52 [place] [address] 64369- 8213 Jan, Schizo affective schizophrenia F25.0 ; Adjustment disorder with mixed anxiety and depressed mood F43.23 ; Night terror F51.4 ; Anxiety F41.9 and Borderline personality disorder F60.3 [place] [address] 26411- 4953 Jan, Mood disorder F39 ; PTSD (post-traumatic stress disorder) F43.10 ; Borderline personality disorder F60.3 and High risk medication use Z79.899 [place] [address] 03608- 0879 Dec, Anxiety F41.9 and Borderline personality disorder F60.3 [place] [address] 77878- 7029 Dec, [place] [address] 33716- 4309 Dec, Anxiety F41.9 and Borderline personality disorder F60.3 [place] [address] 57289- 7235 Dec, [place] [address] 56132- 3933 Dec, [place] [address] 55956- 7416 Nov, Acute non-recurrent maxillary sinusitis J01.00 ; Mood disorder F39 and Sciatica, unspecified side M54.30 [place] [address] 88077- 5567 Nov, Mood disorder F39 ; PTSD (post-traumatic stress disorder) F43.10 and Borderline personality disorder F60.3 [place] [address] 68023- 8036 Nov, Anxiety F41.9 and Borderline personality disorder F60.3 [facility] [id number] [place] [address] 69763- 4484 Nov, [facility] [address] 75452- 6671 Nov, Anxiety F41.9 and Sciatica, unspecified side M54.30 [place] [id number] [place] [address] 04693- 9916 Oct, Anxiety F41.9 [place] [address] 95206- 732 Oct, Mood disorder F39 ; PTSD (post-traumatic stress disorder) F43.10 ; Borderline personality disorder F60.3 and High risk medication use Z79.899 [facility] [address] [id number] Oct, Dental caries K02.9 and Dental examination Z01.20 [place] [id number] [place] [address] 57037- 2333 Sep, Dysuria R30.0 and Abdominal pain, right lower quadrant R10.31 [place] [id number] [place] [address] 79472- 2237 Aug, Mood disorder F39 ; PTSD (post-traumatic stress disorder) F43.10 and Borderline personality disorder F60.3 [place] [id number] [place] [address] 83197- 1474 Aug, [facility] [id number] [place] [address] 51479- 3330 Aug, [place] [id number] [place] [address] 06472- 4338 Aug, Severe episode of recurrent major depressive disorder, with psychotic features F33.3 ; PTSD (post-traumatic stress disorder) F43.10 ; Adjustment disorder with mixed anxiety and depressed mood F43.23 and Borderline personality disorder F60.3 [facility] [address] [facility] [id number] [address]- 9309 Aug, Mood disorder F39 ; PTSD (post-traumatic stress disorder) F43.10 and Borderline personality disorder F60.3 [facility] [address] [facility] [id number] [address] 2546 Aug, [facility] [id number] [place] [address] 85338- 5986 Aug, Bipolar 1 disorder F31.9 and Schizo affective schizophrenia F25.0 [facility] [address] [facility] [id number] [address]- 5766 Aug, Mood disorder F39 [facility] [id number] [place] [address] 78235- 9256 Aug, Bipolar 1 disorder F31.9 and Schizo affective schizophrenia F25.0 [facility] [address] [place] [address] 58969- 1228 Aug, Bipolar 1 disorder F31.9 and Schizo affective schizophrenia F25.0 [facility] [id number] [place] [address] 66696- 4346 Aug, [facility] [id number] [address]- 5396 Aug, PTSD (post-traumatic stress disorder) F43.10 and Borderline personality disorder F60.3 [facility] [id number] [address]- 1204 Aug, [facility] [id number] [place] [address] 22908- 2546 Aug, Mood disorder F39 ; PTSD (post-traumatic stress disorder) F43.10 ; Borderline personality disorder F60.3 and Adjustment disorder with mixed anxiety and depressed mood F43.23 [facility] [id number] [address]- 7256 Jul, [facility] [id number] [address]- 1318 Jul, Mood disorder F39 ; PTSD (post-traumatic stress disorder) F43.10 and Borderline personality disorder F60.3 [place] [address] [address]- 9129 Jul, [place] [address] [place] [address] 27797- 2077 Jun, Anxiety F41.9 ; ADHD (attention deficit hyperactivity disorder) F90.9 ; Night terror F51.4 ; Bulimia F50.2 ; Severe episode of recurrent major depressive disorder, with psychotic features F33.3 and PTSD ( post-traumatic stress disorder) F43.10 [place] [address] [place] [address] 10885- 3648 Jun, Borderline personality disorder F60.3 ; Mood disorder F39 and PTSD (post-traumatic stress disorder) F43.10 [place] [address] [place] [address] 35863- 5381 Jun, Anxiety F41.9 [place] [address] [place] [address] 51985- 5965 Jun, Anxiety F41.9 ; ADHD (attention deficit hyperactivity disorder) F90.9 ; Night terror F51.4 ; Bulimia F50.2 ; Severe episode of recurrent major depressive disorder, with psychotic features F33.3 and PTSD ( post-traumatic stress disorder) F43.10 [place] [address] [place] [address] 68490- 2792 Jun, ADHD (attention deficit hyperactivity disorder) F90.9 ; Night terror F51.4 ; Bulimia F50.2 ; Anxiety F41.9 ; Severe episode of recurrent major depressive disorder, with psychotic features F33.3 and PTSD ( post-traumatic stress disorder) F43.10 [place] [address] [address]- 5397 May, Anxiety F41.9 [place] [address] [address]- 4417 May, PTSD (post-traumatic stress disorder) F43.10 and Borderline personality disorder F60.3 [facility] [address] [place] [address] 72884- 4235 Apr, [facility] [address] [address] March, Dental examination Z01.20 and Dental caries K02.9 [facility] [id number] [place] [address] 87577- 8205 March, Dental examination Z01.20 [facility] [id number] [place] [address] 46683- 6567 March, Tooth abscess K04.7 and Tooth pain K08.89 [place] [id number] [place] [address] 16152- 9468 March, Borderline personality disorder F60.3 [facility] [address] [place] [address] 59748- 4922 March, ADHD (attention deficit hyperactivity disorder) F90.9 ; Night terror F51.4 ; Bulimia F50.2 and Anxiety F41.9 [facility] [address] [address]- 7376 Feb, Borderline personality disorder F60.3 ; ADHD (attention deficit hyperactivity disorder) F90.9 ; Anxiety F41.9 ; Bulimia F50.2 ; Obsessive-compulsive disorder, unspecified type F42.9 and Night terror F51.4 [facility] [address] [address]- 2184 Feb, [facility] [id number] [place] [address] 53493- 6553 13 Feb, 2015 [facility] [id number] [place] [address] 21240- 9697 04 Jul, 2014 [facility] [id number] [address]- 2588 Jul, [facility] [place] [facility] [address] [id number] [place] [address]- 1181 Jul, [facility] [place] [facility] [address] [id number] [place] Jul, [facility] [place] [facility] [address] [id number] [place] [address]- 1510 Jun, [facility] [place] [facility] [address] [id number] [place] [address]- 2489 Jun, [facility] [place] [facility] [address] [id number] [place] [address]- 0555 Jun, [facility] [place] [facility] [address] [id number] [place] [address]- 3854 Jun, [facility] [place] [facility] [address] [id number] [place] [address]- 7022 Apr, [facility] [place] [facility] [address] [id number] [place] [address]- 4397 Apr, [facility] [place] [facility] [address] [id number] [place] [address]- 2636 March, [facility] [place] [facility] [address] [id number] [place] [address]- 1318 March, [facility] [place] [facility] [address] [id number] [place] [address]- 3887 Jan, [facility] [place] [facility] [address] [id number] [place] [address]- 9933 Jan, [facility] [place] [facility] [address] [id number] [place] [address]- 1170 Jan, [facility] [place] [facility] [address] [id number] [place] [address]- 6988 Jan, [facility] [place] [facility] [address] [id number] [place] [address]- 3715 Jan, [facility] [place] [facility] [address] [id number] [place] [address]- 1142 Dec, [facility] [place] [facility] [address] [id number] [place] 1751 Dec, [facility] [place] [facility] [address] [id number] [place] [address]- 1026 Oct, [facility] [place] [facility] [address] [id number] [place] 6870 Oct, [facility] [place] [facility] [address] [id number] [place] [address]- 6685 Oct, [facility] [place] [facility] [address] [id number] [place] [address]- 9950 Oct, [facility] [place] [facility] [address] [id number] [place] [address]- 9072 Sep, [facility] [place] [facility] [address] [id number] [place] [address]- 8170 Sep, [facility] [place] [facility] [address] [id number] [place] [address]- 7969 Sep, [facility] [place] [facility] [address] [id number] [address]- 1150 Aug, [facility] [place] [facility] [address] [id number] [address]- 6631 Aug, [facility] [place] [facility] [address] [id number] [address]- 8443 Aug, [facility] [place] [facility] [address] [id number] [address]- 2834 Aug, [facility] [place] [facility] [address] [id number] 3033 Aug, [facility] [place] [facility] [address] [id number] [address]- 8620 Aug, [facility] [place] [facility] [address] [id number] [address]- 6362 Aug, [facility] [address] [id number] [place] [address]- 0842 Jul, [facility] [place] [facility] [address] [id number] [place] [address]- 3085 Jun, [facility] [place] [facility] [address] [id number] [place] [address]- 2782 Jun, [facility] [place] [facility] [address] [id number] [place] [address]- 5305 Jun, [facility] [place] [facility] [address] [id number] [place] [address]- 1916 Jun, [facility] [place] [facility] [address] [id number] [place] [address]- 1525 Jun, [facility] [address] [id number] [place] [address]- 9578 Jun, [facility] [place] [facility] [address] [id number] [place] [address]- 1070 May, [facility] [place] [facility] [address] [id number] [place] [address]- 9330 May, [facility] [place] [facility] [address] [id number] [place] [address]- 6275 May, [facility] [place] [facility] [address] [id number] [place] [address]- 6243 May, [facility] [place] [facility] [address] [id number] [place] [address]- 7450 March, [facility] [place] [facility] [address] [id number] [place] [address]- 4825 March, [facility] [place] [facility] [address] [id number] [place] 3577 March, [facility] [place] [facility] [address] [id number] [place] [address]- 7345 Feb, [facility] [place] [facility] [address] [id number] [place] [address]- 3238 29 Feb, 2013 [facility] [address] [id number] [place] [address]- 6342 10 Feb, 2013 [facility] [place] [facility] [address] [id number] [place] [address]- 0761 04 Feb, 2013 [facility] [address] [id number] [place] [address]- 6926 27 Jan, 2013 [facility] [place] [facility] [address] [id number] [place] [address]- 2792 Jan, [facility] [address] [id number] [place] [address]- 0231 Jan, [facility] [address] [id number] [place] [address]- 9896 Dec, [facility] [address] [id number] [place] [address]- 1503 14 Dec, 2012 [facility] [address] [id number] [place] [address]- 5801 Dec, [facility] [address] [id number] [place] [address]- 9982 05 Dec, 2012 [facility] [address] [id number] [place] [address]- 7541 Dec, [facility] [address] [id number] [place] [address]- 0688 Nov, [facility] [place] [facility] [address] [id number] [place] [address]- 2663 Nov, [facility] [place] [facility] [address] [id number] [place] [address]- 7198 Nov, [facility] [place] [facility] [address] [id number] [place] [address]- 6034 14 Nov, 2012 [facility] [place] [facility] [address] [id number] [place] [address]- 9296 Oct, [facility] [place] [facility] [address] [id number] [place] [address]- 7156 Oct, [facility] [place] [facility] [address] [id number] [place] [address]- 6056 Oct, [facility] [place] [facility] [address] [id number] [place] [address]- 8806 Oct, [facility] [place] [facility] [address] [id number] [place] [address]- 4906 Oct, [facility] [place] [facility] [address] [id number] [place] [address]- 0636 Oct, [facility] [place] [facility] [address] [id number] [place] [address]- 3492 Oct, [facility] [place] [facility] [address] [id number] [place] [address]- 2499 Oct, [facility] [place] [facility] [address] [id number] [place] [address]- 7960 Oct, [facility] [place] [facility] [address] [id number] [place] [address]- 3888 Oct, [facility] [place] [facility] [address] [id number] [place] [address]- 4877 Oct, [facility] [place] [facility] [address] [id number] [place] [address]- 0931 Oct, [facility] [place] [facility] [address] [id number] [place] [address]- 0471 Oct, [facility] [place] [facility] [address] [id number] [place] [address] Sep, [facility] [place] [facility] [address] [id number] [place] [address] Sep, [facility] [place] [facility] [address] [id number] [place] [address] Sep, [facility] [place] [facility] [address] [id number] [place] [address] Sep, [facility] [place] [facility] [address] [id number] [place] [address] Sep, [facility] [place] [facility] [address] [id number] [place] [address] Sep, [facility] [place] [facility] [address] [id number] [place] [address] Sep, [facility] [place] [facility] [address] [id number] [place] [address] Sep, [facility] [place] [facility] [address] [id number] [place] [address], [place] [address]- [address] Sep, [facility] [place] [facility] [address] [id number] [place] [address] Sep, [facility] [place] [facility] [address] [facility] [id number] [place] [address] Sep, [facility] [place] [facility] [address] [id number] [place] [address] Sep, [facility] [place] [facility] [address] [facility] [id number] [place] [address] Aug, [facility] [place] [facility] [address] [facility] [id number] [place] [address] Aug, [facility] [place] [facility] [address] [facility] [id number] [place] [address] Aug, [facility] [place] [facility] [address] [id number] [place] [address] Aug, [facility] [place] [facility] [address] [facility] [id number] [place] [address] Aug, [facility] [place] [facility] [address] [facility] [id number] [place] [address] Aug, [facility] [place] [facility] [address] [facility] [id number] [place] [address]- [address] Aug, [facility] [place] [facility] [address] [id number] [place] [address] Aug, [facility] [place] [facility] [address] [id number] [place] [address] Aug, [facility] [place] [facility] [address] [id number] [place] [address] Aug, [facility] [place] [facility] [address] [id number] [place] [address]- [address] Aug, [facility] [place] [facility] [address] [id number] [place] [address] Aug, [facility] [place] [facility] [address] [id number] [place] [address] 28 Jul, 2012 [facility] [place] [facility] [address] [id number] [place] [address]- [address] 27 Jul, 2012 [facility] [place] [facility] [address] [id number] [place] [address] 21 Jul, 2012 [facility] [place] [facility] [address] [id number] [place] [address]- [address] 10 Jul, 2012 [facility] [place] [facility] [address] [id number] [address] 05 Jul, 2012 [facility] [place] [facility] [address] [facility] [id number] [address] Jul, [facility] [place] [facility] [address] [id number] [address] Jun, [facility] [place] [facility] [address] [id number] [place] [address] Jun, [facility] [place] [facility] [address] [id number] [place] [address] Jun, [facility] [place] [facility] [address] [facility] [id number] [address] May, [facility] [place] [facility] [address] [id number] [address] 25 May, 2012 [facility] [address] [id number] [place] [address] 14 May, 2012 [facility] [place] [facility] [address] [id number] [place] [address] 09 May, 2012 [facility] [place] [facility] [address] [id number] [place] [address] 06 May, 2012 [facility] [place] [facility] [address] [id number] [place] [address] 05 May, 2012 [facility] [place] [facility] [address] [id number] [place] [address] 30 Apr, 2012 [facility] [place] [facility] [address] [id number] [place] [address] 23 Feb, 2012 [facility] [address] [id number] [address] 18 Feb, 2012 [facility] [place] [facility] [address] [id number] [place] [address] 11 Feb, 2012 [facility] [place] [facility] [address] [id number] [place] [address] 10 Feb, 2012 [facility] [place] [facility] [address] [facility] [id number] [place] [address] 16 Jan, 2012 [facility] [place] [facility] [address] [id number] [place] [address] Jan, [facility] [place] [facility] [address] [id number] [place] [address] 29 Dec, 2011 [facility] [place] [facility] [address] [id number] [place] [address] 28 Dec, 2011 [facility] [place] [facility] [address] [id number] [place] [address] 21 Dec, 2011 [facility] [place] [facility] [address] [facility] [id number] [place] [address] 14 Dec, 2011 [facility] [place] [facility] [address] [id number] [place] [address] 14 Dec, 2011 [facility] [place] [facility] [address] [id number] [place] [address] 12[address] 13 Dec, 2011 [facility] [place] [facility] [address] [id number] [place] [address] 09 Dec, 2011 [facility] [place] [facility] [address] [id number] [place] [address] Dec, [facility] [place] [facility] [address] [id number] [place] [address] Dec, [facility] [place] [facility] [address] [id number] [place] [address] 48[address] Nov, [facility] [place] [facility] [address] [id number] [place] [address] Nov, [facility] [place] [facility] [address] [id number] [place] [address] 1685 Nov, [facility] [place] [facility] [address] [id number] [place] [address] Nov, [facility] [place] [facility] [address] [id number] [place] [address] Nov, [facility] [place] [facility] [address] [id number] [place] [address] Nov, [facility] [place] [facility] [address] [id number] [place] [address] Nov, [facility] [place] [facility] [address] [id number] [place] [address] Nov, [facility] [place] [facility] [address] [id number] [place] [address] 70[address] Nov, [facility] [place] [facility] [address] [id number] [place] [address] Oct, [facility] [place] [facility] [address] [id number] [address] Oct, [facility] [place] [facility] [address] [id number] [place] [address] Oct, [facility] [place] [facility] [address] [id number] [address] Oct, [facility] [place] [facility] [address] [facility] [id number] [place] [address] Oct, [facility] [place] [facility] [address] [id number] [place] [address] Oct, [facility] [place] [facility] [address] [facility] [id number] [place] [address], [place] [address] Sep, [facility] [place] [facility] [address] [facility] [id number] [place] [address] Aug, [facility] [address] [facility] [id number] [address] Jul, [facility] [place] [facility] [address] [facility] [id number] [address] Nov, [facility] [place] [facility] [address] [id number] [address] Nov, [facility] [place] [facility] [address] [id number] [address] Oct, [facility] [place] [facility] [address] [facility] [id number] [address] Sep, [facility] [place] [facility] [address] [facility] [id number] [address] Sep, [facility] [place] [facility] [address] [facility] [id number] [address] 18 Aug, 2010 [facility] [place] [facility] [address] [facility] [id number] [address] 14 Aug, 2010 [facility] [place] [facility] [address] [facility] [id number] [address] 14 Aug, 2010 [facility] [place] [facility] [id number] [address] Feb, [facility] [id number] [address] Dec, [facility] [id number] [address] Oct, [facility] [id number] [address] Oct, [facility] [id number] [address] Oct, [facility] [id number] [place] [address] Sep, [facility] [id number] [place] [address] Sep, [facility] [id number] [address] Sep, [facility] [id number] [address] Aug, [facility] [id number], [place] [address] Aug, IMMUNIZATIONS No Known Immunizations SOCIAL HISTORY Never Assessed REASON FOR VISIT Requests return call PLAN OF CARE VITAL SIGNS MEDICATIONS Medication Instructions Dosage Frequency Start Date End Date Duration Status Klonopin 1 MG Orally twice a day as needed for anxiety 1 tablet 30 days Active RESULTS No Results PROCEDURES [...] mental health issues x2 Ward Unit in [place] 2016 & 02/2017 Hospitalization History Surgery(s)/Childbirth(s)
--- OUTSIDE RECORDS SUMMARY | 2018-08-03 08:20 | XMS REPORT ---
Author Author RACHAEL CHEATHAM Organization [facility] [place] Address [address] [place] [address] Care Team Providers Care Music Box Mechanic Name Role Phone RACHAEL CHEATHAM Unavailable PROBLEMS Type Condition ICD9-CM Code JTY38-NO Code Onset Dates Condition Status SNOMED Code Problem Adjustment disorder with mixed anxiety and depressed mood F43.23 Active 97339304 Problem Bipolar 1 disorder F31.9 Active 632046740 Problem Schizo affective schizophrenia F25.0 Active 530806506 Problem Dysmenorrhea N94.6 Active 339105652 Problem Morbid obesity due to excess calories E66.01 Active 913067700 Problem Cannabis use disorder, mild, abuse F12.10 Active 42627133 Problem Sciatica, unspecified side M54.30 Active 87996110 Problem Other chronic pain G89.29 Active 59868019 Problem Lumbago with sciatica, right side M54.41 Active 682375680 Problem Anxiety F41.9 Active 89077138 Problem PTSD (post-traumatic stress disorder) F43.10 Active 42910059 Problem Borderline personality disorder F60.3 Active 05050630 Problem Severe episode of recurrent major depressive disorder, with psychotic features F33.3 Active 75347727 Problem Night terror F51.4 Active 12878469 Problem Mood disorder F39 Active 86025559 ALLERGIES Substance Reaction Event Type Date Status Pseudoephedrine HCl ER unknown Drug Allergy May, Active Phenytoin rash Drug Allergy May, Active Penicillamine anaphylaxis Drug Allergy May, Active Cephalexin anaphylaxis Drug Allergy May, Active Albuterol unknown Drug Allergy May, Active ENCOUNTERS Encounter Location Date Diagnosis [facility] [place] [address] [facility] [id number] [address] Aug, [facility] [place] [address] [facility] [id number] [address] 11 Jul, 2018 Anxiety F41.9 and Skin tags, multiple acquired L91.8 [place] [id number] [place] [address] 67982- 4067 Jul, BMI 45.0-49.9, adult Z68.42 ; Anxiety F41.9 ; Acute pain of left foot M79.672 and Acute swimmer''s ear of right side H60.331 [place] [address] [address] Jun, [place] [address] 06912- 1159 Jun, PTSD (post-traumatic stress disorder) F43.10 ; Mood disorder F39 ; Borderline personality disorder F60.3 and Cannabis use disorder, mild, abuse F12.10 [place] [address] 01686- 2820 Jun, [place] [address] 50359- 9712 Jun, PTSD (post-traumatic stress disorder) F43.10 [place] [address] 74007- 7776 Jun, [place] adverse reaction T43.595A and Sprain of anterior talofibular ligament of left ankle, initial encounter S93.492A [place] [id number] [place] [address] 71703- 2244 Jun, [place] [address] [address]- [address] May, [place] [address] 77772- 4398 May, Skin tags, multiple acquired L91.8 ; Dysmenorrhea N94.6 and Acute non-recurrent maxillary sinusitis J01.00 [place] [id number] [place] [address] 15831- 4661 May, PTSD (post-traumatic stress disorder) F43.10 [place] [address] [place] [address] May, Other terminal worker (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 [place] [id number] [place] [address] 19548- 1140 May, PTSD (post-traumatic stress disorder) F43.10 ; Mood disorder F39 ; Borderline personality disorder F60.3 and Cannabis use disorder, mild, abuse F12.10 [place] [id number] [place] [address] 16529- 2674 May, BMI 40.0-44.9, adult Z68.41 [place] [address] 71718- 4892 18 Apr, 2018 BMI 40.0-44.9, adult Z68.41 [place] [id number] [place] [address] 55947- 0248 14 Apr, 2018 Acute non-recurrent maxillary sinusitis J01.00 [place] [id number] [place] [address] 75127- 9440 Apr, PTSD (post-traumatic stress disorder) F43.10 ; Mood disorder F39 ; Borderline personality disorder F60.3 ; Cannabis use disorder, mild, abuse F12.10 and Other care home (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 [place] [id number] [place] [address] 28092- 0841 08 Apr, 2018 [place] [id number] [place] [address] 67871- 0722 Apr, Annual physical exam Z00.00 and High risk medication use Z79.899 [place] [id number] [place] [address] 41104- 0296 Apr, PTSD (post-traumatic stress disorder) F43.10 [place] [id number] [place] [address] 68149- 2524 Apr, [place] [id number] [place] [address] 87514- 6057 March, BMI 40.0-44.9, adult Z68.41 ; Morbid obesity due to excess calories E66.01 ; Lumbago with sciatica, right side M54.41 and Other chronic pain G89.29 [facility] [place] [id number] [place] [address] 23802- 6584 March, PTSD (post-traumatic stress disorder) F43.10 [facility] [place] [id number] [place] [address] 85410- 2338 March, PTSD (post-traumatic stress disorder) F43.10 ; Mood disorder F39 ; Borderline personality disorder F60.3 and Cannabis use disorder, mild, abuse F12.10 [place] [id number] [place] [address] 81774- 8117 Feb, [place] [id number] [place] [address] 71988- 2460 Feb, [facility] [address] [place] [address] Feb, Breast cancer screening Z12.31 [place] [id number] [place] [address] 15941- 0097 Feb, Mood disorder F39 and PTSD (post-traumatic stress disorder) F43.10 [place] [address] [address] Feb, PTSD (post-traumatic stress disorder) F43.10 ; Mood disorder F39 ; Borderline personality disorder F60.3 and Cannabis use disorder, mild, abuse F12.10 [facility] [place] [address] [address] Feb, Schizo affective schizophrenia F25.0 ; Adjustment disorder with mixed anxiety and depressed mood F43.23 ; Night terror F51.4 ; Anxiety F41.9 and Borderline personality disorder F60.3 [facility] [place] [address] [address] Feb, [facility] [place] [address] [address]38- 6[address] Feb, Mood disorder F39 [place] [address] 09373- 8458 Feb, Annual physical exam Z00.00 ; BMI 40.0-44.9, adult Z68.41 and Nipple discharge N64.52 [place] [address] 34962- 8808 Jan, Schizo affective schizophrenia F25.0 ; Adjustment disorder with mixed anxiety and depressed mood F43.23 ; Night terror F51.4 ; Anxiety F41.9 and Borderline personality disorder F60.3 [place] [address] 93450- 4959 Jan, Mood disorder F39 ; PTSD (post-traumatic stress disorder) F43.10 ; Borderline personality disorder F60.3 and High risk medication use Z79.899 [place] [address] 65286- 4149 Dec, Anxiety F41.9 and Borderline personality disorder F60.3 [place] [address] 42425- 8798 Dec, [place] [address] 43864- 8820 Dec, Anxiety F41.9 and Borderline personality disorder F60.3 [place] [address] 10945- 4644 Dec, [place] [address] 89862- 7872 Dec, [place] [address] [place] [id number]- 1107 Nov, Acute non-recurrent maxillary sinusitis J01.00 ; Mood disorder F39 and Sciatica, unspecified side M54.30 [place] [address] 35208- 9139 Nov, Mood disorder F39 ; PTSD (post-traumatic stress disorder) F43.10 and Borderline personality disorder F60.3 [facility] [place] [id number] [place] [address] 73097- 4658 Nov, Anxiety F41.9 and Borderline personality disorder F60.3 [facility] [place] [id number] [place] [address] 38573- 4884 Nov, [facility] [place] [id number] [place] [address] 43370- 8007 Nov, Anxiety F41.9 and Sciatica, unspecified side M54.30 [place] [id number] [place] [address] 10097- 7909 Oct, Anxiety F41.9 [place] [id number] [place] [address] 98505- 5306 Oct, Mood disorder F39 ; PTSD (post-traumatic stress disorder) F43.10 ; Borderline personality disorder F60.3 and High risk medication use Z79.899 [facility] [address] [id number] Oct, Dental caries K02.9 and Dental examination Z01.20 [place] [id number] [place] [address] 74796- 1737 13 Sep, 2017 Dysuria R30.0 and Abdominal pain, right lower quadrant R10.31 [facility] [place] [id number] [place] [address] 05850- 2211 Aug, Mood disorder F39 ; PTSD (post-traumatic stress disorder) F43.10 and Borderline personality disorder F60.3 [facility] [place] [address] 73618- 9887 Aug, [facility] [place] [id number] [place] [address] 66533- 7197 Aug, [facility] [place] [address] 34868- 3088 Aug, Severe episode of recurrent major depressive disorder, with psychotic features F33.3 ; PTSD (post-traumatic stress disorder) F43.10 ; Adjustment disorder with mixed anxiety and depressed mood F43.23 and Borderline personality disorder F60.3 [facility] [place] [address] [address]- 9286 Aug, Mood disorder F39 ; PTSD (post-traumatic stress disorder) F43.10 and Borderline personality disorder F60.3 [facility] [place] [id number] [place] [address] 10057- 9184 Aug, [facility] [place] [id number] [place] [address] 678859- 2811 Aug, Bipolar 1 disorder F31.9 and Schizo affective schizophrenia F25.0 [facility] [place] [id number] [place] [address] 69718- 3949 Aug, Mood disorder F39 [facility] [place] [id number] [place] [address] 48528- 3331 Aug, Bipolar 1 disorder F31.9 and Schizo affective schizophrenia F25.0 [facility] [place] [id number] [place] [address] 37133- 8176 Aug, Bipolar 1 disorder F31.9 and Schizo affective schizophrenia F25.0 [facility] [place] [id number] [place] [address] 92353- 1354 Aug, [facility] [place] [id number] [place] [address] 81330- 0617 Aug, PTSD (post-traumatic stress disorder) F43.10 and Borderline personality disorder F60.3 [facility] [place] [id number] [place] [address] 20416- 6623 Aug, [facility] [place] [id number] [place] [address] 77546- 9231 Aug, Mood disorder F39 ; PTSD (post-traumatic stress disorder) F43.10 ; Borderline personality disorder F60.3 and Adjustment disorder with mixed anxiety and depressed mood F43.23 [place] [address] [address]- 7510 Jul, [place] [id number] [place] [address] 35009- 0768 Jul, Mood disorder F39 ; PTSD (post-traumatic stress disorder) F43.10 and Borderline personality disorder F60.3 [place] [id number] [place] [address] 13295- 8617 Jul, [place] [id number] [place] [address] 92085- 1151 Jun, Anxiety F41.9 ; ADHD (attention deficit hyperactivity disorder) F90.9 ; Night terror F51.4 ; Bulimia F50.2 ; Severe episode of recurrent major depressive disorder, with psychotic features F33.3 and PTSD ( post-traumatic stress disorder) F43.10 [place] [address] [place] [address] 97290- 5206 Jun, Borderline personality disorder F60.3 ; Mood disorder F39 and PTSD (post-traumatic stress disorder) F43.10 [place] [address] [place] [address] 17421- 1327 Jun, Anxiety F41.9 [place] [address] [place] [address] 28178- 5564 Jun, Anxiety F41.9 ; ADHD (attention deficit hyperactivity disorder) F90.9 ; Night terror F51.4 ; Bulimia F50.2 ; Severe episode of recurrent major depressive disorder, with psychotic features F33.3 and PTSD ( post-traumatic stress disorder) F43.10 [place] [address] [address]- 2336 Jun, ADHD (attention deficit hyperactivity disorder) F90.9 ; Night terror F51.4 ; Bulimia F50.2 ; Anxiety F41.9 ; Severe episode of recurrent major depressive disorder, with psychotic features F33.3 and PTSD ( post-traumatic stress disorder) F43.10 [facility] [place] [address] [address]- 2951 May, Anxiety F41.9 [facility] [place] [id number] [place] [address] 53405- 4598 May, PTSD (post-traumatic stress disorder) F43.10 and Borderline personality disorder F60.3 [facility] [place] [id number] [place] [address] 56336- 6858 Apr, [facility] [id number] [place] [address] [id number] March, Dental examination Z01.20 and Dental caries K02.9 [place] [id number] [place] [address] 06718- 5402 March, Dental examination Z01.20 [facility] [place] [id number] [place] [address] 05184- 1566 March, Tooth abscess K04.7 and Tooth pain K08.89 [place] [id number] [place] [address] 61218- 4018 March, Borderline personality disorder F60.3 [facility] [place] [id number] [place] [address] 24678- 7023 March, ADHD (attention deficit hyperactivity disorder) F90.9 ; Night terror F51.4 ; Bulimia F50.2 and Anxiety F41.9 [facility] [place] [id number] [place] [address] 84563- 4332 Feb, Borderline personality disorder F60.3 ; ADHD (attention deficit hyperactivity disorder) F90.9 ; Anxiety F41.9 ; Bulimia F50.2 ; Obsessive-compulsive disorder, unspecified type F42.9 and Night terror F51.4 [facility] [place] [id number] [place] [address] 74295- 1864 Feb, [facility] [place] [id number] [place] [address] 75405- 6351 Feb, [facility] [place] [facility] [address] [id number] [place] [address]- 1737 Jul, [facility] [place] [facility] [address] [id number] [place] [address]- 1524 Jul, [facility] [place] [facility] [address] [id number] [place] [address]- 3648 Jul, [facility] [place] [facility] [address] [id number] [place] [address]- 4437 Jul, [facility] [place] [facility] [address] [id number] [place] [address]- 8317 Jun, [facility] [place] [facility] [address] [id number] [place] [address]- 4161 Jun, [facility] [place] [facility] [address] [id number] [place] [address]- 5433 Jun, [facility] [place] [facility] [address] [id number] [place] [address]- 8334 Jun, [facility] [place] [facility] [address] [id number] [place] [address]- 1872 Apr, [facility] [place] [facility] [address] [id number] [place] [address]- 5345 Apr, [facility] [place] [facility] [address] [id number] [place] [address]- 9022 March, [facility] [place] [facility] [address] [id number] [place] [address]- 5597 March, [facility] [place] [facility] [address] [id number] [place] [address]- 5459 Jan, [facility] [place] [facility] [address] [id number] [place] [address]- 2870 Jan, [facility] [place] [facility] [address] [id number] [place] [address]- 3263 Jan, [facility] [place] [facility] [address] [id number] [place] [address]- 1495 Jan, [facility] [place] [facility] [address] [id number] [place] [address]- 4799 Jan, [facility] [place] [facility] [address] [id number] [place] [address]- 4196 Dec, [facility] [place] [facility] [address] [id number] [place] [address]- 5036 Dec, [facility] [place] [facility] [address] [id number] [place] [address]- 6849 Oct, [facility] [place] [facility] [address] [id number] [place] [address]- 4144 Oct, [facility] [place] [facility] [address] [id number] [place] [address]- 3616 Oct, [facility] [place] [facility] [address] [id number] [place] [address]- 2988 Oct, [facility] [place] [facility] [address] [id number] [place] [address]- 4960 Sep, [facility] [place] [facility] [address] [id number] [place] [address]- 3166 Sep, [facility] [place] [facility] [address] [id number] [place] [address]- 7255 Sep, [facility] [place] [facility] [address] [id number] [place] [address]- 4587 Aug, [facility] [place] [facility] [address] [id number] [place] 4267 Aug, [facility] [place] [facility] [address] [id number] [place] [address]- 5339 Aug, [facility] [place] [facility] [address] [id number] [place] [address]- 8463 Aug, [facility] [place] [facility] [address] [id number] [place] [address]- 6325 Aug, [facility] [place] [facility] [address] [id number] [place] [address]- 2796 Aug, [facility] [place] [facility] [address] [id number] [place] [address]- 4688 Aug, [facility] [place] [facility] [address] [id number] [place] [address]- 5495 Jul, [facility] [place] [facility] [address] [id number] [place] [address]- 3892 Jun, [facility] [place] [facility] [address] [id number] [place] [address]- 5540 Jun, [facility] [place] [facility] [address] [id number] [place] [address]- 6104 Jun, [facility] [place] [facility] [address] [id number] [place] [address]- 5097 Jun, [facility] [place] [facility] [address] [id number] [place] [address]- 2075 Jun, [facility] [place] [facility] [address] [id number] [place] [address]- 3129 Jun, [facility] [place] [facility] [address] [id number] [place] [address]- 0713 May, [facility] [place] [facility] [address] [id number] [address]- 4020 May, [facility] [place] [facility] [address] [id number] [place] [address]- 6557 May, [facility] [place] [facility] [address] [id number] [place] [address]- 2628 May, [facility] [place] [facility] [address] [id number] [place] [address]- 7397 March, [facility] [place] [facility] [address] [id number] [place] [address]- 3444 March, [facility] [place] [facility] [address] [id number] [place] [address]- 5907 March, [facility] [address] [id number] [place] [address]- 8255 30 Feb, 2013 [facility] [address] [id number] [place] [address] 2546 29 Feb, 2013 [facility] [address] [id number] [place] [address]- 9818 Feb, [facility] [address] [id number] [place] [address] 2543 Feb, [facility] [address] [id number] [place] [address]- 6257 Jan, [facility] [address] [id number] [place] [address]- 2431 Jan, [facility] [address] [id number] [place] [address]- 7411 Jan, [facility] [address] [id number] [place] [address]- 6322 Dec, [facility] [address] [id number] [place] [address]- 3608 Dec, [facility] [address] [id number] [place] [address]- 4555 Dec, [facility] [address] [id number] [place] [address]- 2546 Dec, [facility] [address] [id number] [place] [address]- 2546 Dec, [facility] [place] [facility] [address] [id number] [place] [address]- 2856 Nov, [facility] [place] [facility] [address] [id number] [place] [address] Nov, [facility] [address] [id number] [place] [address] Nov, [facility] [address] [id number] [place] [address] 14 Nov, 2012 [facility] [place] [facility] [address] [id number] [place] [address] Oct, [facility] [place] [facility] [address] [id number] [place] [address] Oct, [facility] [place] [facility] [address] [id number] [place] [address] Oct, [facility] [place] [facility] [address] [id number] [place] [address] Oct, [facility] [place] [facility] [address] [id number] [place] [address] Oct, [facility] [place] [facility] [address] [id number] [place] [address] Oct, [facility] [place] [facility] [address] [id number] [place] [address] Oct, [facility] [place] [facility] [address] [id number] [place] [address] Oct, [facility] [place] [facility] [address] [id number] [place] [address] Oct, [facility] [place] [facility] [address] [id number] [place] [address] Oct, [facility] [place] [facility] [address] [id number] [place] [address] Oct, [facility] [place] [facility] [address] [id number] [place] [address] Oct, [facility] [place] [facility] [address] [id number] [place] [address] Oct, [facility] [place] [facility] [address] [id number] [place] [address] Sep, [facility] [place] [facility] [address] [id number] [place] [address] Sep, [facility] [place] [facility] [address] [id number] [place] [address] Sep, [facility] [place] [facility] [address] [id number] [place] [address] Sep, [facility] [place] [facility] [address] [facility] [id number] [place] [address] Sep, [facility] [place] [facility] [address] [id number] [place] [address] Sep, [facility] [place] [facility] [address] [id number] [place] [address] Sep, [facility] [place] [facility] [address] [id number] [place] [address] Sep, [facility] [place] [facility] [address] [facility] [id number] [place] [address] Sep, [facility] [place] [facility] [address] [id number] [place] [address] Sep, [facility] [place] [facility] [address] [facility] [id number] [place] [address] Sep, [facility] [place] [facility] [address] [facility] [id number] [place] [address] Sep, [facility] [place] [facility] [address] [facility] [id number] [place] [address] Aug, [facility] [place] [facility] [address] [address] [id number] [place] [address] 31 Aug, 2012 [facility] [place] [facility] [address] [id number] [place] [address] Aug, [facility] [place] [facility] [address] [facility] [id number] [place] [address] 26 Aug, 2012 [facility] [place] [facility] [address] [facility] [id number] [place] [address] 14 Aug, 2012 [facility] [place] [facility] [address] [id number] [place] [address] 14 Aug, 2012 [facility] [place] [facility] [address] [id number] [place] [address] Aug, [facility] [place] [facility] [address] [id number] [place] [address] Aug, [facility] [place] [facility] [address] [id number] [place] [address] Aug, [facility] [place] [facility] [address] [id number] [place] [address] Aug, [facility] [place] [facility] [address] [id number] [place] [address] Aug, [facility] [place] [facility] [address] [id number] [place] [address] Aug, [facility] [place] [facility] [address] [id number] [place] [address] 28 Jul, 2012 [facility] [place] [facility] [address] [id number] [place] [address] 27 Jul, 2012 [facility] [place] [facility] [address] [id number] [place] [address] 2562 21 Jul, 2012 [facility] [place] [facility] [address] [id number] [place] [address] 6779 10 Jul, 2012 [facility] [place] [facility] [address] [id number] [place] [address] 0175 05 Jul, 2012 [facility] [place] [facility] [address] [id number] [place] [address] 4412 04 Jul, 2012 [facility] [place] [facility] [address] [id number] [place] [address] 67[address] Jun, [facility] [place] [facility] [address] [id number] [place] [address] Jun, [facility] [place] [facility] [address] [id number] [place] [address] 7771 Jun, [facility] [place] [facility] [address] [id number] [place] [address] 1692 May, [facility] [place] [facility] [address] [id number] [place] [address] May, [facility] [place] [facility] [address] [id number] [place] [address] 3544 May, [facility] [place] [facility] [address] [id number] [place] [address] 5566 May, [facility] [place] [facility] [address] [id number] [place] [address] 7350 May, [facility] [place] [facility] [address] [id number] [place] [address] 9371 May, [facility] [place] [facility] [address] [id number] [place] [address] 0758 Apr, [facility] [place] [facility] [address] [id number] [place] [address] 4438 23 Feb, 2012 [facility] [place] [facility] [address] [id number] [place] [address] 0410 18 Feb, 2012 [facility] [place] [facility] [address] [id number] [place] [address] 6129 11 Feb, 2012 [facility] [place] [facility] [address] [id number] [place] [address]- 1682 10 Feb, 2012 [facility] [place] [facility] [address] [id number] [place] [address] 4719 16 Jan, 2012 [facility] [place] [facility] [address] [id number] [place] [address]- 6565 12 Jan, 2012 [facility] [place] [facility] [address] [id number] [place] [address] 6585 29 Dec, 2011 [facility] [place] [facility] [address] [id number] [place] [address] 4[address] 28 Dec, 2011 [facility] [place] [facility] [address] [id number] [place] [address] 3356 21 Dec, 2011 [facility] [place] [facility] [address] [id number] [place] [address] 3066 14 Dec, 2011 [facility] [place] [facility] [address] [id number] [place] [address] 2546 14 Dec, 2011 [facility] [place] [facility] [address] [id number] [place] [address] 2546 13 Dec, 2011 [facility] [place] [facility] [address] [id number] [place] [address]- 2548 09 Dec, 2011 [facility] [place] [facility] [address] [id number] [place] [address]- 9416 07 Dec, 2011 [facility] [place] [facility] [address] [id number] [place] [address] 1913 02 Dec, 2011 [facility] [place] [facility] [address] [id number] [place] [address] 3380 30 Nov, 2011 [facility] [place] [facility] [address] [id number] [place] [address] 8777 Nov, [facility] [place] [facility] [address] [id number] [place] [address] 2253 24 Nov, 2011 [facility] [place] [facility] [address] [id number] [place] [address] 9506 Nov, [facility] [place] [facility] [address] [id number] [place] [address] 3847 17 Nov, 2011 [facility] [place] [facility] [address] [id number] [place] [address]- 4267 16 Nov, 2011 [facility] [place] [facility] [address] [id number] [place] [address]- 2676 10 Nov, 2011 [facility] [place] [facility] [address] [id number] [place] [address]- 9018 09 Nov, 2011 [facility] [place] [facility] [address] [id number] [place] [address] 3266 Nov, [facility] [address] [id number] [place] [address] Oct, [facility] [place] [facility] [address] [id number] [place] [address]- 5028 Oct, [facility] [place] [facility] [address] [id number] [place] [address]- 1401 Oct, [facility] [place] [facility] [address] [id number] [place] [address] 0490 Oct, [facility] [address] [id number] [place] [address] Oct, [facility] [place] [facility] [address] [id number] [place] [address]- 0098 Oct, [facility] [place] [facility] [address] [id number] [place] [address]- 5795 Sep, [facility] [place] [facility] [address] [id number] [place] [address] 0483 Aug, [facility] [place] [facility] [address] [id number] [place] [address] 6505 Jul, [facility] [place] [facility] [address] [id number] [place] [address] 2122 Nov, [facility] [place] [facility] [address] [id number] [place] [address] 6909 Nov, [facility] [place] [facility] [address] [id number] [place] [address] 1530 Oct, [facility] [place] [facility] [address] [id number] [place] [address]- 7331 Sep, [facility] [place] [facility] [address] [id number] [place] [address] 9304 Sep, [facility] [place] [facility] [address] [id number] [place] [address]- 2888 Aug, [facility] [place] [facility] [id number] [place] [address] 5950 14 Aug, 2010 [facility] [place] [id number] [place] [address]50 14 Aug, 2010 [facility] [place] [id number] [place] [address] 9186 13 Feb, 2010 [facility] [place] [id number] [place] [address]- 9083 10 Dec, 2009 [facility] [place] [id number] [place] [address]- 4695 30 Oct, 2009 [facility] [place] [id number] [place] [address]- 1192 Oct, [facility] [place] [id number] [place] [address]- 9292 Oct, [facility] [place] [id number] [place] [address]- 8930 Sep, [facility] [place] [id number] [address]- 0162 Sep, [facility] [place] [id number] [place] [address]- 7728 Sep, [facility] [place] [id number] [address] 4091 Aug, [facility] [place] [id number] [address]- 7584 Aug, IMMUNIZATIONS No Known Immunizations SOCIAL HISTORY Never Assessed REASON FOR VISIT Anxiety-ANNMARIE adorno, sinus infection PLAN OF CARE VITAL SIGNS Height 63 in 2018-06-08 Weight 257.0 lbs 2018-06-08 Temperature 97.7 degrees Fahrenheit 2018-06-08 Heart Rate 115 bpm 2018-06-08 Respiratory Rate 20 2018-06-08 BMI 45.52 kg/m2 2018-06-08 Blood pressure systolic 110 mmHg 2018-06-08 Blood pressure diastolic 82 mmHg 2018-06-08 MEDICATIONS Medication Instructions Dosage Frequency Start Date End Date Duration Status Amitriptyline HCl 50 MG Orally Once a day at bedtime 1 tablet Active Gabapentin 800 MG Orally 3 times a day 1 tablet 8h Active Atorvastatin Calcium 20 mg Orally Once a day 1 tablet 24h Apr, 30 day(s) Active Zithromax Z-Howard 250 MG Orally Once a day 2 tablets on the first day, then 1 tablet daily for 4 days 24h May, Jun, 5 day(s) Active Seroquel 100 MG Orally Three times a day 1 tablet 8h Active Quetiapine Fumarate 300 MG Orally Once a day 1 tablet at bedtime 24h Active [place] 5-325 MG Orally every 6 hrs 1 tablet as needed 6h May, Active Desvenlafaxine Succinate ER 100 MG Orally in morning 1 tablet Active [place] Carbonate 600 MG Orally 2 times a day 1 capsule 12h 30 days Active BusPIRone HCl 10 mg Orally Three times a day 2 tablets 8h Active Tramadol HCl 50 mg Orally every 6 hrs 1 tablet as needed 6h March, Active Diclofenac Sodium 75 MG Orally Twice a day as needed 1 tablet with food or milk March, 30 day(s) Active Voltaren 1 % Transdermal 2 times a day apply 4gm as needed to lower back as needed 12h Nov, 30 days Active RESULTS No Results PROCEDURES [...] mental health issues x2 Ward Unit in [place] 2016 & 02/2017 Hospitalization History Surgery(s)/Childbirth(s)
--- OUTSIDE RECORDS SUMMARY | 2018-08-03 08:21 | XMS REPORT ---
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29 Active 24000632 Problem Lumbago with sciatica, right side M54.41 Active 450805806 Problem Anxiety F41.9 Active 00468902 Problem PTSD (post-traumatic stress disorder) F43.10 Active 60629584 Problem Borderline personality disorder F60.3 Active 15789491 Problem Severe episode of recurrent major depressive disorder, with psychotic features F33.3 Active 96042725 Problem Night terror F51.4 Active 68102541 Problem Mood disorder F39 Active 14803748 ALLERGIES No Information ENCOUNTERS Encounter Location Date Diagnosis [facility] [id number] [place] [address] 70661- 1769 Jul, [facility] [id number] [place] [address] 49955- 5561 05 Jul, 2018 BMI 45.0-49.9, adult Z68.42 ; Anxiety F41.9 ; Acute pain of left foot M79.672 and Acute swimmer''s ear of right side H60.331 [facility] [id number] [place] [address] 79469- 0913 Jun, [place] [id number] [place] [address] 10270- 0017 Jun, PTSD (post-traumatic stress disorder) F43.10 ; Mood disorder F39 ; Borderline personality disorder F60.3 and Cannabis use disorder, mild, abuse F12.10 [place] [id number] [place] [address] 95208- 7576 Jun, [place] [address] 948113- 7071 Jun, PTSD (post-traumatic stress disorder) F43.10 [place] [id number] [place] [address] Jun, [place] adverse reaction T43.595A and Sprain of anterior talofibular ligament of left ankle, initial encounter S93.492A [place] [id number] [place] [address] 83769- 5713 Jun, [place] [id number] [place] [address] 50668- 9340 May, [place] [id number] [place] [address] 68972- 9866 May, Skin tags, multiple acquired L91.8 ; Dysmenorrhea N94.6 and Acute non-recurrent maxillary sinusitis J01.00 [place] [id number] [place] [address] 88106- 5578 May, PTSD (post-traumatic stress disorder) F43.10 [place] [id number] [place] [address] 02418- 0446 May, 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 [place] [id number] [place] [address] 75058- 3575 May, PTSD (post-traumatic stress disorder) F43.10 ; Mood disorder F39 ; Borderline personality disorder F60.3 and Cannabis use disorder, mild, abuse F12.10 [place] [address] [address] 5[address] 10 May, 2018 BMI 40.0-44.9, adult Z68.41 [address] [id number] [place] [address] 58138- 7912 18 Apr, 2018 BMI 40.0-44.9, adult Z68.41 [id number] [place] [address] 85761- 6476 14 Apr, 2018 Acute non-recurrent maxillary sinusitis J01.00 [id number] [place] [address] 83410- 4735 11 Apr, 2018 PTSD (post-traumatic stress disorder) F43.10 ; Mood disorder F39 ; Borderline personality disorder F60.3 ; Cannabis use disorder, mild, abuse F12.10 and 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 [id number] [place] [address] 56032- 8383 08 Apr, 2018 [address] [id number] [place] [address] 36003- 4634 07 Apr, 2018 Annual physical exam Z00.00 and High risk medication use Z79.899 [address] [address] [id number] [place] [address] 19018- 5043 07 Apr, 2018 PTSD (post-traumatic stress disorder) F43.[address] [place] [address] 06736- 4063 Apr, [address] [id number] [place] [address] 90563- 0121 March, BMI 40.0-44.9, adult Z68.41 ; Morbid obesity due to excess calories E66.01 ; Lumbago with sciatica, right side M54.41 and Other chronic pain G89.[address] [place] [address] 99253- 8988 March, PTSD (post-traumatic stress disorder) F43.[address] [address] 1805 March, PTSD (post-traumatic stress disorder) F43.10 ; Mood disorder F39 ; Borderline personality disorder F60.3 and Cannabis use disorder, mild, abuse F12.10 [place] [address] [address] 9006 Feb, [place] [id number] [place] [address] 54172- 1412 Feb, [facility] [id number] [place] [address] Feb, Breast cancer screening Z12.31 [address] [place] [address] 81800- 4931 Feb, Mood disorder F39 and PTSD (post-traumatic stress disorder) F43.[address] [place] [address] 34150- 0158 Feb, PTSD (post-traumatic stress disorder) F43.10 ; Mood disorder F39 ; Borderline personality disorder F60.3 and Cannabis use disorder, mild, abuse F12.10 [place] [address] [place] [address] 30097- 5484 Feb, Schizo affective schizophrenia F25.0 ; Adjustment disorder with mixed anxiety and depressed mood F43.23 ; Night terror F51.4 ; Anxiety F41.9 and Borderline personality disorder F60.3 [place] [address] [place] [address] 87758- 3031 Feb, [place] [address] [place] [address] 32672- 9874 Feb, Mood disorder F39 [place] [address] [place] [address] 78780- 3463 Feb, Annual physical exam Z00.00 ; BMI 40.0-44.9, adult Z68.41 and Nipple discharge N64.[address] [place] [address] 71873- 6963 Jan, Schizo affective schizophrenia F25.0 ; Adjustment disorder with mixed anxiety and depressed mood F43.23 ; Night terror F51.4 ; Anxiety F41.9 and Borderline personality disorder F60.3 [facility] [id number] [place] [address] 47998- 6699 Jan, Mood disorder F39 ; PTSD (post-traumatic stress disorder) F43.10 ; Borderline personality disorder F60.3 and High risk medication use Z79.899 [place] [id number] [place] [address] 26617- 6047 Dec, Anxiety F41.9 and Borderline personality disorder F60.3 [place] [id number] [place] [address] 51621- 1407 Dec, [place] [address] 26082- 2842 Dec, Anxiety F41.9 and Borderline personality disorder F60.3 [place] [id number] [place] [address] 09618- 4034 Dec, [place] [id number] [place] [address] 61894- 2167 Dec, [place] [id number] [place] [address] 44033- 9288 Nov, Acute non-recurrent maxillary sinusitis J01.00 ; Mood disorder F39 and Sciatica, unspecified side M54.30 [place] [id number] [place] [address] 44666- 8000 Nov, Mood disorder F39 ; PTSD (post-traumatic stress disorder) F43.10 and Borderline personality disorder F60.3 [facility] [id number] [place] [address] 99841- 1571 Nov, Anxiety F41.9 and Borderline personality disorder F60.3 [place] [address] [place] [address]- 4817 Nov, [facility] [id number] [place] [address] 82699- 078 Nov, Anxiety F41.9 and Sciatica, unspecified side M54.30 [facility] [id number] [place] [address] 99484- 8684 Oct, Anxiety F41.9 [facility] [address] 43440- 0234 Oct, Mood disorder F39 ; PTSD (post-traumatic stress disorder) F43.10 ; Borderline personality disorder F60.3 and High risk medication use Z79.899 [facility] [id number] [place] [address] [id number] 11 Oct, 2017 Dental caries K02.9 and Dental examination Z01.20 [facility] [id number] [place] [address] 60599- 8530 Sep, Dysuria R30.0 and Abdominal pain, right lower quadrant R10.31 [facility] [id number] [place] [address] 91815- 3466 Aug, Mood disorder F39 ; PTSD (post-traumatic stress disorder) F43.10 and Borderline personality disorder F60.3 [facility] [id number] [place] [address] 57825- 4541 Aug, [facility] [id number] [place] [address] 70454- 5167 Aug, [facility] [id number] [place] [address] 14430- 1715 Aug, Severe episode of recurrent major depressive disorder, with psychotic features F33.3 ; PTSD (post-traumatic stress disorder) F43.10 ; Adjustment disorder with mixed anxiety and depressed mood F43.23 and Borderline personality disorder F60.3 [facility] [id number] [place] [address] 91026- 3200 Aug, Mood disorder F39 ; PTSD (post-traumatic stress disorder) F43.10 and Borderline personality disorder F60.3 [facility] [address] [place] [address] 57931- 3906 Aug, [facility] [id number] [place] [address] 78639206- 7816 Aug, Bipolar 1 disorder F31.9 and Schizo affective schizophrenia F25.0 [facility] [id number] [place] [address] 85242- 8356 Aug, Mood disorder F39 [facility] [id number] [place] [address] 63088- 0086 Aug, Bipolar 1 disorder F31.9 and Schizo affective schizophrenia F25.0 [facility] [id number] [place] [address] 46708- 5866 Aug, Bipolar 1 disorder F31.9 and Schizo affective schizophrenia F25.0 [facility] [id number] [place] [address] 67771- 8982 Aug, [facility] [id number] [place] [address] 42414- 6771 Aug, PTSD (post-traumatic stress disorder) F43.10 and Borderline personality disorder F60.3 [facility] [id number] [place] [address] 26413- 8953 Aug, [facility] [id number] [place] [address] 24183- 6303 Aug, Mood disorder F39 ; PTSD (post-traumatic stress disorder) F43.10 ; Borderline personality disorder F60.3 and Adjustment disorder with mixed anxiety and depressed mood F43.23 [facility] [address] [place] [address] 00885- 7626 Jul, [facility] [id number] [place] [address] 16274- 8464 Jul, Mood disorder F39 ; PTSD (post-traumatic stress disorder) F43.10 and Borderline personality disorder F60.3 [place] [address] [address]- 0346 Jul, [place] [id number] [place] [address] 35250- 1980 Jun, Anxiety F41.9 ; ADHD (attention deficit hyperactivity disorder) F90.9 ; Night terror F51.4 ; Bulimia F50.2 ; Severe episode of recurrent major depressive disorder, with psychotic features F33.3 and PTSD ( post-traumatic stress disorder) F43.10 [place] [id number] [place] [address] 81166- 7059 Jun, Borderline personality disorder F60.3 ; Mood disorder F39 and PTSD (post-traumatic stress disorder) F43.10 [place] [id number] [place] [address] 09107- 5569 Jun, Anxiety F41.9 [place] [id number] [place] [address] 19989- 0898 Jun, Anxiety F41.9 ; ADHD (attention deficit hyperactivity disorder) F90.9 ; Night terror F51.4 ; Bulimia F50.2 ; Severe episode of recurrent major depressive disorder, with psychotic features F33.3 and PTSD ( post-traumatic stress disorder) F43.10 [place] [address] [address]- 6518 Jun, ADHD (attention deficit hyperactivity disorder) F90.9 ; Night terror F51.4 ; Bulimia F50.2 ; Anxiety F41.9 ; Severe episode of recurrent major depressive disorder, with psychotic features F33.3 and PTSD ( post-traumatic stress disorder) F43.10 [place] [address] [place] [address] 45987- 5362 May, Anxiety F41.9 [place] [address] [place] [address] 65446- 4797 May, PTSD (post-traumatic stress disorder) F43.10 and Borderline personality disorder F60.3 [facility] [address] [address]- 8377 Apr, [facility] [address] [place] [address] [id number] March, Dental examination Z01.20 and Dental caries K02.9 [facility] [id number] [place] [address] 64338- 8514 March, Dental examination Z01.20 [facility] [id number] [place] [address] 20906- 3005 March, Tooth abscess K04.7 and Tooth pain K08.89 [place] [id number] [place] [address] 79671- 5997 March, Borderline personality disorder F60.3 [facility] [id number] [place] [address] 37345- 5673 March, ADHD (attention deficit hyperactivity disorder) F90.9 ; Night terror F51.4 ; Bulimia F50.2 and Anxiety F41.9 [facility] [address] [place] [address] 48798- 6554 Feb, Borderline personality disorder F60.3 ; ADHD (attention deficit hyperactivity disorder) F90.9 ; Anxiety F41.9 ; Bulimia F50.2 ; Obsessive-compulsive disorder, unspecified type F42.9 and Night terror F51.4 [facility] [address] [place] [address] 84837- 1560 Feb, [facility] [id number] [place] [address] 01540- 8290 Feb, [facility] [id number] [place] [address] 35309- 6727 Jul, [facility] [id number] [place] [address] 56728- 5569 Jul, [facility] [id number] [place] [address] 69109- 2546 Jul, [facility] [place] [facility] [address] [id number] [place] 1350 Jul, [facility] [place] [facility] [address] [id number] [place] 6999 Jun, [facility] [place] [facility] [address] [id number] [place] [address]- 1014 Jun, [facility] [place] [facility] [address] [id number] [place] [address]- 4741 Jun, [facility] [place] [facility] [address] [id number] [place] [address]- 2972 Jun, [facility] [place] [facility] [address] [id number] [place] [address]- 2856 Apr, [facility] [place] [facility] [address] [id number] [place] [address]- 8740 Apr, [facility] [place] [facility] [address] [id number] [place] [address]- 0937 March, [facility] [place] [facility] [address] [id number] [place] [address]- 4068 March, [facility] [place] [facility] [address] [id number] [place] [address]- 0771 Jan, [facility] [place] [facility] [address] [id number] [place] [address]- 5768 Jan, [facility] [place] [facility] [address] [id number] [place] [address]- 6814 Jan, [facility] [place] [facility] [address] [id number] [place] 1903 Jan, [facility] [place] [facility] [address] [id number] [place] [address]- 5322 Jan, [facility] [place] [facility] [address] [id number] [place] [address]- 4114 Dec, [facility] [place] [facility] [address] [id number] [place] [address]- 5733 Dec, [facility] [address] [id number] [place] [address]- 1402 Oct, [facility] [place] [facility] [address] [id number] [place] [address]- 2546 Oct, [facility] [address] [id number] [place] [address]- 2541 Oct, [facility] [place] [facility] [address] [id number] [place] [address]- 254 Oct, [facility] [address] [id number] [place] [address]- 5408 Sep, [facility] [place] [facility] [address] [id number] [place] [address]- 3991 Sep, [facility] [place] [facility] [address] [id number] [place] [address]- 8079 Sep, [facility] [address] [id number] [place] [address]- 5000 Aug, [facility] [place] [facility] [address] [id number] [place] [address]- 4270 Aug, [facility] [address] [facility] [id number] [place] [address]- 1729 Aug, [facility] [place] [facility] [address] [id number] [place] [address]- 7416 Aug, [facility] [place] [facility] [address] [id number] [place] [address]- 5939 Aug, [facility] [place] [facility] [address] [id number] [place] [address]- 8235 Aug, [facility] [place] [facility] [address] [id number] [place] [address]- 2546 Aug, [facility] [place] [facility] [address] [id number] [place] [address]- 1445 Jul, [facility] [address] [id number] [place] [address]- 5265 Jun, [facility] [place] [facility] [address] [id number] [place] [address]- 0137 Jun, [facility] [place] [facility] [address] [id number] [place] [address]- 1691 Jun, [facility] [place] [facility] [address] [id number] [place] [address]- 6247 Jun, [facility] [place] [facility] [address] [id number] [place] [address]- 3669 Jun, [facility] [place] [facility] [address] [id number] [place] [address]- 2227 Jun, [facility] [place] [facility] [address] [id number] [place] [address]- 1651 May, [facility] [place] [facility] [address] [id number] [place] [address]- 7253 May, [facility] [place] [facility] [address] [id number] [place] [address]- 7561 May, [facility] [place] [facility] [address] [id number] [place] [address]- 8176 May, [facility] [place] [facility] [address] [id number] [place] [address]- 7387 March, [facility] [place] [facility] [address] [id number] [place] [address]- 9563 March, [facility] [place] [facility] [address] [id number] [place] [address]- 4863 March, [facility] [place] [facility] [address] [id number] [place] [address]- 5407 Feb, [facility] [place] [facility] [address] [id number] [place] [address]- 7721 Feb, [facility] [place] [facility] [address] [id number] [place] [address]- 4055 10 Feb, 2013 [facility] [address] [id number] [place] [address]- 9675 04 Feb, 2013 [facility] [address] [id number] [place] [address]- 2500 27 Jan, 2013 [facility] [address] [id number] [place] [address]- 8714 Jan, [facility] [place] [facility] [address] [id number] [place] [address]- 8708 Jan, [facility] [address] [id number] [place] [address]- 0681 Dec, [facility] [place] [facility] [address] [id number] [place] [address]- 3329 14 Dec, 2012 [facility] [address] [id number] [place] [address]- 5826 Dec, [facility] [address] [id number] [place] [address]- 2749 05 Dec, 2012 [facility] [address] [id number] [place] [address]- 2941 Dec, [facility] [address] [facility] [id number] [place] [address]- 4438 Nov, [facility] [place] [facility] [address] [id number] [place] [address]- 7176 Nov, [facility] [place] [facility] [address] [id number] [place] [address] 2547 Nov, [facility] [place] [facility] [address] [id number] [place] [address]- 9302 Nov, [facility] [place] [facility] [address] [id number] [place] [address]- 8066 Oct, [facility] [place] [facility] [address] [id number] [place] [address]- 1520 Oct, [facility] [place] [facility] [address] [id number] [place] [address]- 7806 Oct, [facility] [place] [facility] [address] [id number] [place] [address] Oct, [facility] [place] [facility] [address] [id number] [place] [address] Oct, [facility] [place] [facility] [address] [id number] [place] [address] Oct, [facility] [place] [facility] [address] [id number] [place] [address] Oct, [facility] [place] [facility] [address] [id number] [place] [address] Oct, [facility] [place] [facility] [address] [id number] [place] [address] Oct, [facility] [place] [facility] [address] [id number] [place] [address] Oct, [facility] [place] [facility] [address] [id number] [place] [address] Oct, [facility] [place] [facility] [address] [id number] [place] [address] Oct, [facility] [place] [facility] [address] [facility] [id number] [place] [address] Oct, [facility] [place] [facility] [address] [id number], [place] [address] Sep, [facility] [place] [facility] [address] [id number] [place] [address] Sep, [facility] [place] [facility] [address] [id number] [place] [address] Sep, [facility] [place] [facility] [address] [id number] [place] [address] Sep, [facility] [place] [facility] [address] [id number], [place] [address] Sep, [facility] [place] [facility] [address] [id number] [place] [address] Sep, [facility] [place] [facility] [address] [id number] [place] [address] Sep, [facility] [place] [facility] [address] [facility] [id number] [place] [address] Sep, [facility] [place] [facility] [address] [id number] [place] [address] Sep, [facility] [place] [facility] [address] [id number] [place] [address] Sep, [facility] [place] [facility] [address] [facility] [id number] [place] [address] Sep, [facility] [place] [facility] [address] [facility] [id number] [place] [address] Sep, [facility] [place] [facility] [address] [facility] [id number] [place] [address] Aug, [facility] [place] [facility] [address] [facility] [id number] [place] [address] Aug, [facility] [place] [facility] [address] [facility] [id number] [place] [address] Aug, [facility] [place] [facility] [address] [facility] [id number], [place] [address] Aug, [facility] [place] [facility] [address] [facility] [id number], [place] [address] Aug, [facility] [place] [facility] [address] [id number], [place] [address] Aug, [facility] [place] [facility] [address] [facility] [id number], [place] [address] Aug, [facility] [place] [facility] [address] [facility] [id number], [place] [address] Aug, [facility] [place] [facility] [address] [id number] [place] [address] 08 Aug, 2012 [facility] [place] [facility] [address] [id number] [place] [address] 08 Aug, 2012 [facility] [place] [facility] [address] [id number] [place] [address] Aug, [facility] [place] [facility] [address] [id number] [place] [address] Aug, [facility] [place] [facility] [address] [id number] [place] [address] 28 Jul, 2012 [facility] [place] [facility] [address] [id number] [place] [address] 4465 27 Jul, 2012 [facility] [place] [facility] [address] [id number] [place] [address] 7[address] 21 Jul, 2012 [facility] [place] [facility] [address] [id number] [place] [address]83 10 Jul, 2012 [facility] [place] [facility] [address] [id number] [place] [address]- 450[address] 05 Jul, 2012 [facility] [place] [facility] [address] [id number] [place] [address]- 6785 04 Jul, 2012 [facility] [place] [facility] [address] [id number] [place] [address] Jun, [facility] [place] [facility] [address] [id number] [place] [address] 46[address] Jun, [facility] [place] [facility] [address] [id number] [place] [address] Jun, [facility] [place] [facility] [address] [id number] [place] [address] 49[address] May, [facility] [place] [facility] [address] [id number] [place] [address]106 May, [facility] [place] [facility] [address] [id number] [place] [address] 14 May, 2012 [facility] [place] [facility] [address] [id number] [place] [address] 2555 09 May, 2012 [facility] [place] [facility] [address] [id number] [place] [address] 39[address] May, [facility] [place] [facility] [address] [id number] [place] [address] 287[address] 05 May, 2012 [facility] [place] [facility] [address] [id number] [place] [address] 30[address] 30 Apr, 2012 [facility] [place] [facility] [address] [id number] [place] [address] 59[address] 23 Feb, 2012 [facility] [place] [facility] [address] [id number] [place] [address] 2720 18 Feb, 2012 [facility] [place] [facility] [address] [id number] [place] [address] 5333 11 Feb, 2012 [facility] [place] [facility] [address] [id number] [place] [address]- 8359 10 Feb, 2012 [facility] [place] [facility] [address] [id number] [place] [address] 9554 16 Jan, 2012 [facility] [place] [facility] [address] [id number] [place] [address] Jan, [facility] [place] [facility] [address] [id number] [place] [address] 1435 29 Dec, 2011 [facility] [place] [facility] [address] [id number] [place] [address] 5142 28 Dec, 2011 [facility] [place] [facility] [address] [id number] [place] [address] 47[address] Dec, [facility] [place] [facility] [address] [id number] [place] [address] 9168 14 Dec, 2011 [facility] [place] [facility] [address] [id number] [place] [address] 5173 14 Dec, 2011 [facility] [place] [facility] [address] [id number] [place] [address]- 2023 13 Dec, 2011 [facility] [address] [id number] [place] [address]- 9666 09 Dec, 2011 [facility] [place] [facility] [address] [id number] [place] [address] 2546 07 Dec, 2011 [facility] [address] [id number] [place] [address]- 2066 02 Dec, 2011 [facility] [place] [facility] [address] [id number] [place] [address] 8449 30 Nov, 2011 [facility] [address] [id number] [place] [address] 3084 Nov, [facility] [address] [id number] [place] [address] 78[address] Nov, [facility] [address] [id number] [place] [address] 1772 Nov, [facility] [address] [id number] [place] [address] 3339 17 Nov, 2011 [facility] [address] [id number] [place] [address] 4016 Nov, [facility] [address] [id number] [place] [address] 0361 Nov, [facility] [address] [id number] [place] [address]- 3306 Nov, [facility] [address] [id number] [place] [address]- 9652 Nov, [facility] [place] [facility] [address] [id number] [place] [address]- 3136 Oct, [facility] [place] [facility] [address] [id number] [place] [address]- 2546 Oct, [facility] [place] [facility] [address] [id number] [place] [address] 5066 Oct, [facility] [place] [facility] [address] [id number] [place] [address]- 6871 Oct, [facility] [place] [facility] [address] [id number] [place] [address]- 6221 Oct, [facility] [place] [facility] [address] [id number] [place] [address]- 1352 Oct, [facility] [place] [facility] [address] [id number] [place] [address]- 0047 Sep, [facility] [place] [facility] [address] [id number] [place] [address]- 3095 Aug, [facility] [place] [facility] [address] [id number] [place] [address]- 7563 Jul, [facility] [place] [facility] [address] [id number] [place] [address]- 1877 Nov, [facility] [place] [facility] [address] [id number], [place] [address] 7667 Nov, [facility] [place] [facility] [address] [id number] [place] [address] 4162 Oct, [facility] [place] [facility] [address] [id number], [place] [address] 0480 Sep, [facility] [place] [facility] [address] [id number], [place] [address]- 0425 Sep, [facility] [place] [facility] [address] [id number], [place] [address]- 1314 18 Aug, 2010 [facility] [place] [facility] [address] [id number] [place] [address]- 0610 14 Aug, 2010 [facility] [place] [facility] [address] [id number], [place] [address] 5894 14 Aug, 2010 [facility] [place] [facility] [address] [id number], [place] [address] 7219 13 Feb, 2010 [facility] [place] [facility] [address] [id number], [place] [address] 10 Dec, 2009 [facility] [id number] [address] [address] Oct, [facility] [id number], [place] [address]25 Oct, [facility] [id number], [place] [address] Oct, [facility] [id number], [place] [address] 0[address] Sep, [facility] [id number] [place] [address] 4512 Sep, [facility] [id number], [place] [address] 6826 Sep, [facility] [id number] [address] [address] Aug, [facility] [address] [id number], [place] [address] Aug, IMMUNIZATIONS No Known Immunizations SOCIAL HISTORY Never Assessed REASON FOR VISIT Lab (walk-in) PLAN OF CARE VITAL SIGNS MEDICATIONS Unknown Medications RESULTS Name Result Date Reference Range LITHIUM (ESKALITH(R)), SERUM 2018-06-07 LITHIUM <0.3 0.6-1.2 PROCEDURES Procedure Date Ordered Result Body Site ASSAY OF LITHIUM June 07, 2018 INSTRUCTIONS MEDICATIONS ADMINISTERED No Known Medications [...] EGD Hospitalization History mental health issues x2 [facility] [place] 2016 & 02/2017 Hospitalization History Surgery(s)/Childbirth(s)
--- OUTSIDE RECORDS SUMMARY | 2018-08-03 08:21 | XMS REPORT ---
Author Author TESS CRAIG Organization [facility] Address [address] [place] [address] Care Team Providers Care Clean Up Worker Name Role Phone RAFATESS Unavailable PROBLEMS Type Condition ICD9-CM Code EDN49-RB Code Onset Dates Condition Status SNOMED Code Problem Adjustment disorder with mixed anxiety and depressed mood F43.23 Active 88742862 Problem Bipolar 1 disorder F31.9 Active 248371778 Problem Schizo affective schizophrenia F25.0 Active 521781848 Problem Dysmenorrhea N94.6 Active 782312981 Problem Morbid obesity due to excess calories E66.01 Active 974392836 Problem Cannabis use disorder, mild, abuse F12.10 Active 77384345 Problem Sciatica, unspecified side M54.30 Active 94116300 Problem Other chronic pain G89.29 Active 73948053 Problem Lumbago with sciatica, right side M54.41 Active 255939757 Problem Anxiety F41.9 Active 02081841 Problem PTSD (post-traumatic stress disorder) F43.10 Active 15534770 Problem Borderline personality disorder F60.3 Active 66945242 Problem Severe episode of recurrent major depressive disorder, with psychotic features F33.3 Active 05089958 Problem Night terror F51.4 Active 11778055 Problem Mood disorder F39 Active 39875381 ALLERGIES No Information ENCOUNTERS Encounter Location Date Diagnosis [facility] [id number] [place] [address] 39123- 1226 Jul, [facility] [id number] [place] [address] 76464- 2498 05 Jul, 2018 BMI 45.0-49.9, adult Z68.42 ; Anxiety F41.9 ; Acute pain of left foot M79.672 and Acute swimmer''s ear of right side H60.331 [facility] [id number] [place] [address] 50666- 2087 Jun, [place] [id number] [place] [address] 45373- 5418 Jun, PTSD (post-traumatic stress disorder) F43.10 ; Mood disorder F39 ; Borderline personality disorder F60.3 and Cannabis use disorder, mild, abuse F12.10 [place] [id number] [place] [address] 44960- 8442 Jun, [place] [address] 864971- 2551 Jun, PTSD (post-traumatic stress disorder) F43.10 [place] [id number] [place] [address] 225[address] Jun, [place] adverse reaction T43.595A and Sprain of anterior talofibular ligament of left ankle, initial encounter S93.492A [place] [id number] [place] [address] 27815- 3461 Jun, [place] [id number] [place] [address] 10410- 4209 May, [place] [id number] [place] [address] 95315- 2737 May, Skin tags, multiple acquired L91.8 ; Dysmenorrhea N94.6 and Acute non-recurrent maxillary sinusitis J01.00 [place] [id number] [place] [address] 70021- 2433 May, PTSD (post-traumatic stress disorder) F43.10 [place] [id number] [place] [address] 32140- 2091 May, Other long term care pharmacist (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 [place] [id number] [place] [address] 38108- 0598 May, PTSD (post-traumatic stress disorder) F43.10 ; Mood disorder F39 ; Borderline personality disorder F60.3 and Cannabis use disorder, mild, abuse F12.10 [place] [address] [address] 7563 10 May, 2018 BMI 40.0-44.9, adult Z68.41 [address] [id number] [place] [address] 32328- 1320 18 Apr, 2018 BMI 40.0-44.9, adult Z68.41 [address] [id number] [place] [address] 19660- 2342 14 Apr, 2018 Acute non-recurrent maxillary sinusitis J01.00 [address] [id number] [place] [address] 58561- 8508 11 Apr, 2018 PTSD (post-traumatic stress disorder) F43.10 ; Mood disorder F39 ; Borderline personality disorder F60.3 ; Cannabis use disorder, mild, abuse F12.10 and Other long term care pharmacist (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 [address] [id number] [place] [address] 26158- 9576 08 Apr, 2018 [id number] [place] [address] 32009- 0743 07 Apr, 2018 Annual physical exam Z00.00 and High risk medication use Z79.899 [place] [id number] [place] [address] 28184- 7613 07 Apr, 2018 PTSD (post-traumatic stress disorder) F43.10 [address] [place] [address] 57517- 5932 Apr, [address] [id number] [place] [address] 38401- 9209 March, BMI 40.0-44.9, adult Z68.41 ; Morbid obesity due to excess calories E66.01 ; Lumbago with sciatica, right side M54.41 and Other chronic pain G89.29 [address] [place] [address] 80608- 4502 March, PTSD (post-traumatic stress disorder) F43.[address] [address] 3442 March, PTSD (post-traumatic stress disorder) F43.10 ; Mood disorder F39 ; Borderline personality disorder F60.3 and Cannabis use disorder, mild, abuse F12.10 [place] [address] [address]- 3586 Feb, [place] [address] [place] [address] 66426- 2482 Feb, [facility] [id number] [place] [address] Feb, Breast cancer screening Z12.31 [address] [place] [address] 30395- 6094 Feb, Mood disorder F39 and PTSD (post-traumatic stress disorder) F43.10 [address] [place] [address] 45340- 1742 Feb, PTSD (post-traumatic stress disorder) F43.10 ; Mood disorder F39 ; Borderline personality disorder F60.3 and Cannabis use disorder, mild, abuse F12.10 [place] [address] [place] [address] 24785- 9216 Feb, Schizo affective schizophrenia F25.0 ; Adjustment disorder with mixed anxiety and depressed mood F43.23 ; Night terror F51.4 ; Anxiety F41.9 and Borderline personality disorder F60.3 [place] [address] [place] [address] 54224- 9001 Feb, [place] [address] [place] [address] 55468- 2289 Feb, Mood disorder F39 [place] [address] [place] [address] 51909- 3311 Feb, Annual physical exam Z00.00 ; BMI 40.0-44.9, adult Z68.41 and Nipple discharge N64.52 [address] [place] [address] 71304- 9435 Jan, Schizo affective schizophrenia F25.0 ; Adjustment disorder with mixed anxiety and depressed mood F43.23 ; Night terror F51.4 ; Anxiety F41.9 and Borderline personality disorder F60.3 [facility] [id number] [place] [address] 44947- 4180 Jan, Mood disorder F39 ; PTSD (post-traumatic stress disorder) F43.10 ; Borderline personality disorder F60.3 and High risk medication use Z79.899 [place] [id number] [place] [address] 27642- 4972 Dec, Anxiety F41.9 and Borderline personality disorder F60.3 [place] [id number] [place] [address] 13940- 2349 Dec, [place] [address] 84631- 4078 Dec, Anxiety F41.9 and Borderline personality disorder F60.3 [place] [id number] [place] [address] 96512- 0747 Dec, [place] [id number] [place] [address] 09836- 5975 Dec, [place] [id number] [place] [address] 64354- 1306 Nov, Acute non-recurrent maxillary sinusitis J01.00 ; Mood disorder F39 and Sciatica, unspecified side M54.30 [place] [id number] [place] [address] 64392- 4653 Nov, Mood disorder F39 ; PTSD (post-traumatic stress disorder) F43.10 and Borderline personality disorder F60.3 [facility] [id number] [place] [address] 19614- 1648 Nov, Anxiety F41.9 and Borderline personality disorder F60.3 [place] [address] [place] [address]- 2158 Nov, [facility] [id number] [place] [address] 96353- 311 Nov, Anxiety F41.9 and Sciatica, unspecified side M54.30 [facility] [id number] [place] [address] 18336- 7727 Oct, Anxiety F41.9 [facility] [address] 60480- 9290 Oct, Mood disorder F39 ; PTSD (post-traumatic stress disorder) F43.10 ; Borderline personality disorder F60.3 and High risk medication use Z79.899 [facility] [id number] [place] [address] [id number] 11 Oct, 2017 Dental caries K02.9 and Dental examination Z01.20 [facility] [id number] [place] [address] 55733- 6697 Sep, Dysuria R30.0 and Abdominal pain, right lower quadrant R10.31 [facility] [id number] [place] [address] 62059- 2875 Aug, Mood disorder F39 ; PTSD (post-traumatic stress disorder) F43.10 and Borderline personality disorder F60.3 [facility] [id number] [place] [address] 54226- 3892 Aug, [facility] [id number] [place] [address] 25535- 9855 Aug, [facility] [id number] [place] [address] 30416- 9389 Aug, Severe episode of recurrent major depressive disorder, with psychotic features F33.3 ; PTSD (post-traumatic stress disorder) F43.10 ; Adjustment disorder with mixed anxiety and depressed mood F43.23 and Borderline personality disorder F60.3 [facility] [id number] [place] [address] 62760- 0264 Aug, Mood disorder F39 ; PTSD (post-traumatic stress disorder) F43.10 and Borderline personality disorder F60.3 [facility] [address] [place] [address] 25490- 2386 Aug, [facility] [id number] [place] [address] 81068618- 4916 Aug, Bipolar 1 disorder F31.9 and Schizo affective schizophrenia F25.0 [facility] [id number] [place] [address] 04687- 9286 Aug, Mood disorder F39 [facility] [id number] [place] [address] 49655- 5676 Aug, Bipolar 1 disorder F31.9 and Schizo affective schizophrenia F25.0 [facility] [id number] [place] [address] 66253- 0946 Aug, Bipolar 1 disorder F31.9 and Schizo affective schizophrenia F25.0 [facility] [id number] [place] [address] 78192- 7798 Aug, [facility] [id number] [place] [address] 58168- 4971 Aug, PTSD (post-traumatic stress disorder) F43.10 and Borderline personality disorder F60.3 [facility] [id number] [place] [address] 56346- 6557 Aug, [facility] [id number] [place] [address] 36424- 2508 Aug, Mood disorder F39 ; PTSD (post-traumatic stress disorder) F43.10 ; Borderline personality disorder F60.3 and Adjustment disorder with mixed anxiety and depressed mood F43.23 [facility] [id number] [place] [address] 89430- 3866 Jul, [facility] [id number] [place] [address] 45893- 5477 Jul, Mood disorder F39 ; PTSD (post-traumatic stress disorder) F43.10 and Borderline personality disorder F60.3 [place] [address] [address]- 2483 Jul, [place] [id number] [place] [address] 02693- 5808 Jun, Anxiety F41.9 ; ADHD (attention deficit hyperactivity disorder) F90.9 ; Night terror F51.4 ; Bulimia F50.2 ; Severe episode of recurrent major depressive disorder, with psychotic features F33.3 and PTSD ( post-traumatic stress disorder) F43.10 [place] [id number] [place] [address] 44997- 0156 Jun, Borderline personality disorder F60.3 ; Mood disorder F39 and PTSD (post-traumatic stress disorder) F43.10 [place] [id number] [place] [address] 34695- 6803 Jun, Anxiety F41.9 [place] [id number] [place] [address] 77064- 8623 Jun, Anxiety F41.9 ; ADHD (attention deficit hyperactivity disorder) F90.9 ; Night terror F51.4 ; Bulimia F50.2 ; Severe episode of recurrent major depressive disorder, with psychotic features F33.3 and PTSD ( post-traumatic stress disorder) F43.10 [place] [address] [address]- 4988 Jun, ADHD (attention deficit hyperactivity disorder) F90.9 ; Night terror F51.4 ; Bulimia F50.2 ; Anxiety F41.9 ; Severe episode of recurrent major depressive disorder, with psychotic features F33.3 and PTSD ( post-traumatic stress disorder) F43.10 [place] [address] [place] [address] 45515- 4522 May, Anxiety F41.9 [place] [address] [place] [address] 88856- 3332 May, PTSD (post-traumatic stress disorder) F43.10 and Borderline personality disorder F60.3 [facility] [address] [address]- 1876 Apr, [facility] [address] [place] [address] [id number] March, Dental examination Z01.20 and Dental caries K02.9 [facility] [id number] [place] [address] 29784- 4311 March, Dental examination Z01.20 [facility] [id number] [place] [address] 82660- 2326 March, Tooth abscess K04.7 and Tooth pain K08.89 [place] [id number] [place] [address] 33397- 7456 March, Borderline personality disorder F60.3 [facility] [id number] [place] [address] 00924- 9384 March, ADHD (attention deficit hyperactivity disorder) F90.9 ; Night terror F51.4 ; Bulimia F50.2 and Anxiety F41.9 [facility] [address] [place] [address] 70596- 5288 Feb, Borderline personality disorder F60.3 ; ADHD (attention deficit hyperactivity disorder) F90.9 ; Anxiety F41.9 ; Bulimia F50.2 ; Obsessive-compulsive disorder, unspecified type F42.9 and Night terror F51.4 [facility] [address] [place] [address] 04797- 8718 Feb, [facility] [id number] [place] [address] 82886- 6300 Feb, [facility] [id number] [place] [address] 89848- 0079 Jul, [facility] [id number] [place] [address] 30768- 0589 Jul, [facility] [id number] [place] [address] 55792- 2546 Jul, [facility] [place] [facility] [address] [id number] [place] 1804 Jul, [facility] [place] [facility] [address] [id number] [place] 2346 Jun, [facility] [place] [facility] [address] [id number] [place] [address]- 1441 Jun, [facility] [place] [facility] [address] [id number] [place] [address]- 0396 Jun, [facility] [place] [facility] [address] [id number] [place] [address]- 7666 Jun, [facility] [place] [facility] [address] [id number] [place] [address]- 3894 Apr, [facility] [place] [facility] [address] [id number] [place] [address]- 6229 Apr, [facility] [place] [facility] [address] [id number] [place] [address]- 8328 March, [facility] [place] [facility] [address] [id number] [place] [address]- 7524 March, [facility] [place] [facility] [address] [id number] [place] [address]- 5114 Jan, [facility] [place] [facility] [address] [id number] [place] [address]- 4944 Jan, [facility] [place] [facility] [address] [id number] [place] [address]- 5745 Jan, [facility] [place] [facility] [address] [id number] [place] 4526 Jan, [facility] [place] [facility] [address] [id number] [place] [address]- 0503 Jan, [facility] [place] [facility] [address] [id number] [place] [address]- 6699 Dec, [facility] [place] [facility] [address] [id number] [place] [address]- 6075 Dec, [facility] [address] [id number] [place] [address]- 9059 Oct, [facility] [place] [facility] [address] [id number] [place] [address]- 2546 Oct, [facility] [address] [id number] [place] [address]- 2548 Oct, [facility] [place] [facility] [address] [id number] [place] [address]- 2544 Oct, [facility] [address] [id number] [place] [address]- 1862 Sep, [facility] [place] [facility] [address] [id number] [place] [address]- 8119 Sep, [facility] [place] [facility] [address] [id number] [place] [address]- 2269 Sep, [facility] [address] [id number] [place] [address]- 0975 Aug, [facility] [place] [facility] [address] [id number] [place] [address]- 4638 Aug, [facility] [address] [facility] [id number] [place] [address]- 9195 Aug, [facility] [place] [facility] [address] [id number] [place] [address]- 8763 Aug, [facility] [place] [facility] [address] [id number] [place] [address]- 0416 Aug, [facility] [place] [facility] [address] [id number] [place] [address]- 0974 Aug, [facility] [place] [facility] [address] [id number] [place] [address]- 2546 Aug, [facility] [place] [facility] [address] [id number] [place] [address]- 8651 Jul, [facility] [address] [id number] [place] [address]- 4019 Jun, [facility] [place] [facility] [address] [id number] [place] [address]- 9175 Jun, [facility] [place] [facility] [address] [id number] [place] [address]- 1245 Jun, [facility] [place] [facility] [address] [id number] [place] [address]- 6145 Jun, [facility] [place] [facility] [address] [id number] [place] [address]- 2223 Jun, [facility] [place] [facility] [address] [id number] [place] [address]- 2143 Jun, [facility] [place] [facility] [address] [id number] [place] [address]- 7347 May, [facility] [place] [facility] [address] [id number] [place] [address]- 4781 May, [facility] [place] [facility] [address] [id number] [place] [address]- 6748 May, [facility] [place] [facility] [address] [id number] [place] [address]- 4701 May, [facility] [place] [facility] [address] [id number] [place] [address]- 4405 March, [facility] [place] [facility] [address] [id number] [place] [address]- 3012 March, [facility] [place] [facility] [address] [id number] [place] [address]- 3627 March, [facility] [place] [facility] [address] [id number] [place] [address]- 2071 Feb, [facility] [place] [facility] [address] [id number] [place] [address]- 1719 Feb, [facility] [place] [facility] [address] [id number] [place] [address]- 6941 10 Feb, 2013 [facility] [address] [id number] [place] [address]- 1457 04 Feb, 2013 [facility] [address] [id number] [place] [address]- 8741 27 Jan, 2013 [facility] [address] [id number] [place] [address]- 6581 Jan, [facility] [place] [facility] [address] [id number] [place] [address]- 9928 Jan, [facility] [address] [id number] [place] [address]- 3481 Dec, [facility] [place] [facility] [address] [id number] [place] [address]- 3253 14 Dec, 2012 [facility] [address] [id number] [place] [address]- 4777 Dec, [facility] [address] [id number] [place] [address]- 9739 05 Dec, 2012 [facility] [address] [id number] [place] [address]- 5850 Dec, [facility] [address] [facility] [id number] [place] [address]- 0069 Nov, [facility] [place] [facility] [address] [id number] [place] [address]- 8040 Nov, [facility] [place] [facility] [address] [id number] [place] [address] 2544 Nov, [facility] [place] [facility] [address] [id number] [place] [address]- 7995 Nov, [facility] [place] [facility] [address] [id number] [place] [address]- 2596 Oct, [facility] [place] [facility] [address] [id number] [place] [address]- 9327 Oct, [facility] [place] [facility] [address] [id number] [place] [address]- 2366 Oct, [facility] [place] [facility] [address] [id number] [place] [address]- 9466 Oct, [facility] [place] [facility] [address] [id number] [place] [address]- 0806 Oct, [facility] [place] [facility] [address] [id number] [place] [address] Oct, [facility] [place] [facility] [address] [id number] [place] [address] Oct, [facility] [place] [facility] [address] [id number] [place] [address] Oct, [facility] [place] [facility] [address] [id number] [place] [address] Oct, [facility] [place] [facility] [address] [id number] [place] [address] Oct, [facility] [place] [facility] [address] [id number] [place] [address] Oct, [facility] [place] [facility] [address] [id number] [place] [address] Oct, [facility] [place] [facility] [address] [facility] [id number] [place] [address] Oct, [facility] [place] [facility] [address] [id number] [address] Sep, [facility] [place] [facility] [address] [id number] [place] [address] Sep, [facility] [place] [facility] [address] [id number] [place] [address] Sep, [facility] [place] [facility] [address] [id number] [place] [address] Sep, [facility] [place] [facility] [address] [id number] [address] Sep, [facility] [place] [facility] [address] [id number] [place] [address] Sep, [facility] [place] [facility] [address] [id number] [place] [address] Sep, [facility] [place] [facility] [address] [facility] [id number] [place] [address] Sep, [facility] [place] [facility] [address] [id number] [place] [address] Sep, [facility] [place] [facility] [address] [id number] [place] [address] Sep, [facility] [place] [facility] [address] [facility] [id number] [place] [address] Sep, [facility] [place] [facility] [address] [facility] [id number] [place] [address] Sep, [facility] [place] [facility] [address] [facility] [id number] [place] [address] Aug, [facility] [place] [facility] [address] [facility] [id number] [place] [address] Aug, [facility] [place] [facility] [address] [facility] [id number] [place] [address] Aug, [facility] [place] [facility] [address] [facility] [id number] [address] Aug, [facility] [place] [facility] [address] [facility] [id number], [place] [address] Aug, [facility] [place] [facility] [address] [id number], [place] [address] Aug, [facility] [place] [facility] [address] [facility] [id number] [address] Aug, [facility] [place] [facility] [address] [facility] [id number], [place] [address] Aug, [facility] [place] [facility] [address] [id number] [place] [address] 08 Aug, 2012 [facility] [place] [facility] [address] [address] [id number] [place] [address] 08 Aug, 2012 [facility] [place] [facility] [address] [id number] [place] [address] Aug, [facility] [place] [facility] [address] [id number] [place] [address] Aug, [facility] [place] [facility] [address] [id number] [place] [address] 28 Jul, 2012 [facility] [place] [facility] [address] [id number] [place] [address] 27 Jul, 2012 [facility] [place] [facility] [address] [id number] [place] [address] 117[address] 21 Jul, 2012 [facility] [place] [facility] [address] [id number] [place] [address] 10 Jul, 2012 [facility] [place] [facility] [address] [id number] [place] [address] 05 Jul, 2012 [facility] [place] [facility] [address] [id number] [place] [address] 04 Jul, 2012 [facility] [place] [facility] [address] [id number] [place] [address] Jun, [facility] [place] [facility] [address] [id number] [place] [address] Jun, [facility] [place] [facility] [address] [id number] [place] [address] Jun, [facility] [place] [facility] [address] [id number] [place] [address] May, [facility] [place] [facility] [address] [id number] [place] [address] May, [facility] [place] [facility] [address] [id number] [place] [address] 58[address] 14 May, 2012 [facility] [place] [facility] [address] [id number] [place] [address] 09 May, 2012 [facility] [place] [facility] [address] [id number] [place] [address] May, [facility] [place] [facility] [address] [id number] [place] [address] 6618 05 May, 2012 [facility] [place] [facility] [address] [id number] [place] [address] 2867 30 Apr, 2012 [facility] [place] [facility] [address] [id number] [place] [address] 9271 23 Feb, 2012 [facility] [place] [facility] [address] [id number] [place] [address] 240[address] 18 Feb, 2012 [facility] [place] [facility] [address] [id number] [place] [address] 3766 11 Feb, 2012 [facility] [place] [facility] [address] [id number] [place] [address] 6491 10 Feb, 2012 [facility] [place] [facility] [address] [id number] [place] [address] 2862 16 Jan, 2012 [facility] [place] [facility] [address] [id number] [place] [address] Jan, [facility] [place] [facility] [address] [id number] [place] [address] 8637 29 Dec, 2011 [facility] [place] [facility] [address] [id number] [place] [address] 40[address] 28 Dec, 2011 [facility] [place] [facility] [address] [id number] [place] [address] 1026 Dec, [facility] [place] [facility] [address] [id number] [place] [address] 14 Dec, 2011 [facility] [place] [facility] [address] [id number] [place] [address] 6075 14 Dec, 2011 [facility] [place] [facility] [address] [id number] [place] [address] 6660 13 Dec, 2011 [facility] [address] [id number] [place] [address] 1726 09 Dec, 2011 [facility] [place] [facility] [address] [id number] [place] [address]46 07 Dec, 2011 [facility] [address] [id number] [place] [address] 3376 02 Dec, 2011 [facility] [place] [facility] [address] [id number] [place] [address] 1165 30 Nov, 2011 [facility] [address] [id number] [place] [address] Nov, [facility] [address] [id number] [place] [address]896 Nov, [facility] [address] [id number] [place] [address] Nov, [facility] [address] [id number] [place] [address] 4597 17 Nov, 2011 [facility] [address] [id number] [place] [address] 77[address] Nov, [facility] [address] [id number] [place] [address] 30[address] Nov, [facility] [address] [id number] [place] [address]246 Nov, [facility] [address] [id number] [place] [address] 4678 Nov, [facility] [place] [facility] [address] [id number] [place] [address] 6[address] Oct, [facility] [place] [facility] [address] [id number] [place] [address] 2546 Oct, [facility] [place] [facility] [address] [id number] [place] [address] Oct, [facility] [place] [facility] [address] [id number] [place] [address] 6016 Oct, [facility] [place] [facility] [address] [id number] [place] [address] 1777 Oct, [facility] [place] [facility] [address] [id number] [place] [address] 0401 Oct, [facility] [place] [facility] [address] [id number] [place] [address] 4089 Sep, [facility] [place] [facility] [address] [id number] [place] [address] 4107 Aug, [facility] [place] [facility] [address] [id number] [place] [address] 0211 Jul, [facility] [place] [facility] [address] [id number] [place] [address] 0033 Nov, [facility] [place] [facility] [address] [id number] [address] Nov, [facility] [place] [facility] [address] [id number] [place] [address] 45[address] Oct, [facility] [place] [facility] [address] [id number], [place] [address] Sep, [facility] [place] [facility] [address] [id number], [place] [address] Sep, [facility] [place] [facility] [address] [id number], [place] [address]85 18 Aug, 2010 [facility] [place] [facility] [address] [id number] [place] [address]- 5962 14 Aug, 2010 [facility] [place] [facility] [address] [id number], [place] [address] 2766 14 Aug, 2010 [facility] [place] [facility] [address] [id number], [place] [address] 6[address] 13 Feb, 2010 [facility] [place] [facility] [address] [id number], [place] [address] 10 Dec, 2009 [facility] [id number] [address] Oct, [facility] [id number], [place] [address] Oct, [facility] [id number] [address] 46[address] Oct, [facility] [id number] [address] Sep, [facility] [id number] [place] [address] Sep, [facility] [id number] [address] Sep, [facility] [id number] [address] Aug, [facility] [id number] [address] Aug, IMMUNIZATIONS No Known Immunizations SOCIAL HISTORY Never Assessed REASON FOR VISIT med increase PLAN OF CARE VITAL SIGNS MEDICATIONS Medication Instructions Dosage Frequency Start Date End Date Duration Status [place] Carbonate 600 MG Orally 2 times a day 1 capsule 12h 30 days Active RESULTS No Results PROCEDURES [...] mental health issues x2 Ward Unit in [place] 2016 & 02/2017 Hospitalization History Surgery(s)/Childbirth(s)
--- OUTSIDE RECORDS SUMMARY | 2018-08-03 08:22 | XMS REPORT ---
Author Author RACHAEL CHEATHAM Organization [facility] Address [address] [place] [address] Care Team Providers Care Machinery Rigger Name Role Phone RACHAEL CHEATHAM Unavailable PROBLEMS Type Condition ICD9-CM Code [id number] Code Onset Dates Condition Status SNOMED Code Problem Adjustment disorder with mixed anxiety and depressed mood F43.23 Active 41104282 Problem Bipolar 1 disorder F31.9 Active 352043443 Problem Schizo affective schizophrenia F25.0 Active 868034383 Problem Dysmenorrhea N94.6 Active 818015671 Problem Morbid obesity due to excess calories E66.01 Active 946093075 Problem Cannabis use disorder, mild, abuse F12.10 Active 03772036 Problem Sciatica, unspecified side M54.30 Active 66650562 Problem Other chronic pain G89.29 Active 98392186 Problem Lumbago with sciatica, right side M54.41 Active 738515710 Problem Anxiety F41.9 Active 38467699 Problem PTSD (post-traumatic stress disorder) F43.10 Active 33775789 Problem Borderline personality disorder F60.3 Active 42391477 Problem Severe episode of recurrent major depressive disorder, with psychotic features F33.3 Active 21480520 Problem Night terror F51.4 Active 39209834 Problem Mood disorder F39 Active 40146894 ALLERGIES No Information ENCOUNTERS Encounter Location Date Diagnosis [facility] [id number] [address] Jul, [facility] [address], [place] [address] 05 Jul, 2018 BMI 45.0-49.9, adult Z68.42 ; Anxiety F41.9 ; Acute pain of left foot M79.672 and Acute swimmer''s ear of right side H60.331 [facility] [id number] [address] Jun, [place] [address] [place] [address] 82137- 0803 Jun, PTSD (post-traumatic stress disorder) F43.10 ; Mood disorder F39 ; Borderline personality disorder F60.3 and Cannabis use disorder, mild, abuse F12.10 [place] [id number] [place] [address] 68192- 9735 Jun, [place] [id number] [place] [address] 519805- 0513 Jun, PTSD (post-traumatic stress disorder) F43.10 [place] [id number] [place] [address] 501233- 6201 Jun, [place] adverse reaction T43.595A and Sprain of anterior talofibular ligament of left ankle, initial encounter S93.492A [place] [id number] [place] [address] 72084- 3069 Jun, [place] [id number] [place] [address] 38599- 9463 May, [place] [id number] [place] [address] 19198- 8190 May, Skin tags, multiple acquired L91.8 ; Dysmenorrhea N94.6 and Acute non-recurrent maxillary sinusitis J01.00 [place] [id number] [place] [address] 21994- 1461 May, PTSD (post-traumatic stress disorder) F43.10 [place] [id number] [place] [address] 01550- 4933 May, 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 [place] [id number] [place] [address] 54547- 9648 May, PTSD (post-traumatic stress disorder) F43.10 ; Mood disorder F39 ; Borderline personality disorder F60.3 and Cannabis use disorder, mild, abuse F12.10 [place] [address] [address] 9140 May, BMI 40.0-44.9, adult Z68.41 [place] [id number] [place] [address] 56685- 9145 18 Apr, 2018 BMI 40.0-44.9, adult Z68.41 [address] [id number] [place] [address] 49092- 8686 14 Apr, 2018 Acute non-recurrent maxillary sinusitis J01.00 [id number] [place] [address] 09427- 4934 11 Apr, 2018 PTSD (post-traumatic stress disorder) F43.10 ; Mood disorder F39 ; Borderline personality disorder F60.3 ; Cannabis use disorder, mild, abuse F12.10 and Other residential (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 [place] [id number] [place] [address] 35943- 3896 08 Apr, 2018 [id number] [place] [address] 48806- 4636 07 Apr, 2018 Annual physical exam Z00.00 and High risk medication use Z79.899 [place] [id number] [place] [address] 76788- 4440 07 Apr, 2018 PTSD (post-traumatic stress disorder) F43.10 [address] [address] 99[address] Apr, [address] [id number] [place] [address] 42716- 4023 March, BMI 40.0-44.9, adult Z68.41 ; Morbid obesity due to excess calories E66.01 ; Lumbago with sciatica, right side M54.41 and Other chronic pain G89.29 [address] [address]- 0[address] March, PTSD (post-traumatic stress disorder) F43.10 [address] [id number] [place] [address] 54640- 4865 March, PTSD (post-traumatic stress disorder) F43.10 ; Mood disorder F39 ; Borderline personality disorder F60.3 and Cannabis use disorder, mild, abuse F12.10 [place] [address] [place] [address] 12085- 3259 Feb, [place] [address] [place] [address] 04661- 4920 Feb, [facility] [id number] [place] [address] Feb, Breast cancer screening Z12.31 [place] [id number] [place] [address] 07177- 5211 Feb, Mood disorder F39 and PTSD (post-traumatic stress disorder) F43.10 [place] [id number] [place] [address] 36222- 4101 Feb, PTSD (post-traumatic stress disorder) F43.10 ; Mood disorder F39 ; Borderline personality disorder F60.3 and Cannabis use disorder, mild, abuse F12.10 [place] [id number] [place] [address] 61970- 7957 Feb, Schizo affective schizophrenia F25.0 ; Adjustment disorder with mixed anxiety and depressed mood F43.23 ; Night terror F51.4 ; Anxiety F41.9 and Borderline personality disorder F60.3 [place] [address] [place] [address] 47862- 8679 Feb, [place] [address] [place] [address] 46020- 4094 Feb, Mood disorder F39 [place] [address] [place] [address] 44302- 8462 Feb, Annual physical exam Z00.00 ; BMI 40.0-44.9, adult Z68.41 and Nipple discharge N64.52 [place] [id number] [place] [address] 95878- 6765 Jan, Schizo affective schizophrenia F25.0 ; Adjustment disorder with mixed anxiety and depressed mood F43.23 ; Night terror F51.4 ; Anxiety F41.9 and Borderline personality disorder F60.3 [facility] [id number] [place] [address] 45779- 4928 Jan, Mood disorder F39 ; PTSD (post-traumatic stress disorder) F43.10 ; Borderline personality disorder F60.3 and High risk medication use Z79.899 [place] [id number] [place] [address] 61741- 4498 Dec, Anxiety F41.9 and Borderline personality disorder F60.3 [place] [id number] [place] [address] 12396- 6266 Dec, [place] [address] 61440- 7243 Dec, Anxiety F41.9 and Borderline personality disorder F60.3 [place] [id number] [place] [address] 95027- 3181 Dec, [place] [id number] [place] [address] 85415- 7651 Dec, [facility] [id number] [place] [address] 63731- 6212 Nov, Acute non-recurrent maxillary sinusitis J01.00 ; Mood disorder F39 and Sciatica, unspecified side M54.30 [facility] [address] [place] [address] 24124- 3756 Nov, Mood disorder F39 ; PTSD (post-traumatic stress disorder) F43.10 and Borderline personality disorder F60.3 [facility] [id number] [place] [address] 11236- 7460 Nov, Anxiety F41.9 and Borderline personality disorder F60.3 [facility] [address] 10453- 9965 Nov, [facility] [id number] [place] [address] 66788- 5840 Nov, Anxiety F41.9 and Sciatica, unspecified side M54.30 [facility] [id number] [place] [address] 80360- 9059 Oct, Anxiety F41.9 [facility] [id number] [place] [address] 24575- 1545 Oct, Mood disorder F39 ; PTSD (post-traumatic stress disorder) F43.10 ; Borderline personality disorder F60.3 and High risk medication use Z79.899 [facility] [id number] [place] [address] [phone] 11 Oct, 2017 Dental caries K02.9 and Dental examination Z01.20 [facility] [id number] [place] [address] 92989- 6323 Sep, Dysuria R30.0 and Abdominal pain, right lower quadrant R10.31 [facility] [id number] [place] [address] 46324- 1060 Aug, Mood disorder F39 ; PTSD (post-traumatic stress disorder) F43.10 and Borderline personality disorder F60.3 [facility] [address] [place] [address] 06353- 5189 Aug, [facility] [id number] [place] [address] 24020- 5175 Aug, [facility] [id number] [place] [address] 77275- 7459 Aug, Severe episode of recurrent major depressive disorder, with psychotic features F33.3 ; PTSD (post-traumatic stress disorder) F43.10 ; Adjustment disorder with mixed anxiety and depressed mood F43.23 and Borderline personality disorder F60.3 [facility] [address] [place] [address] 55148- 2211 Aug, Mood disorder F39 ; PTSD (post-traumatic stress disorder) F43.10 and Borderline personality disorder F60.3 [facility] [id number] [address]- 6456 Aug, [facility] [id number] [place] [address] 14339 2546 Aug, Bipolar 1 disorder F31.9 and Schizo affective schizophrenia F25.0 [facility] [id number] [place] [address] 16747- 3716 Aug, Mood disorder F39 [facility] [id number] [place] [address] 22001- 7986 Aug, Bipolar 1 disorder F31.9 and Schizo affective schizophrenia F25.0 [facility] [id number] [place] [address] 93198- 9656 Aug, Bipolar 1 disorder F31.9 and Schizo affective schizophrenia F25.0 [facility] [address] [place] [address] 58486- 0026 Aug, [facility] [address] [place] [address] 03737- 0887 Aug, PTSD (post-traumatic stress disorder) F43.10 and Borderline personality disorder F60.3 [facility] [address], [place] [address]- 6078 Aug, [facility] [address], [place] [address]- 9266 Aug, Mood disorder F39 ; PTSD (post-traumatic stress disorder) F43.10 ; Borderline personality disorder F60.3 and Adjustment disorder with mixed anxiety and depressed mood F43.23 [facility] [address], [place] [address]- 7086 Jul, [facility] [id number], [place] [address]- 9956 Jul, Mood disorder F39 ; PTSD (post-traumatic stress disorder) F43.10 and Borderline personality disorder F60.3 [place] [address], [place] [address]- 1473 Jul, [place] [id number] [place] [address] 62560- 9506 Jun, Anxiety F41.9 ; ADHD (attention deficit hyperactivity disorder) F90.9 ; Night terror F51.4 ; Bulimia F50.2 ; Severe episode of recurrent major depressive disorder, with psychotic features F33.3 and PTSD ( post-traumatic stress disorder) F43.10 [place] [address] [place] [address] 26307- 8101 Jun, Borderline personality disorder F60.3 ; Mood disorder F39 and PTSD (post-traumatic stress disorder) F43.10 [place] [address], [place] [address]- 9916 Jun, Anxiety F41.9 [place] [id number] [place] [address] 77396- 8631 Jun, Anxiety F41.9 ; ADHD (attention deficit hyperactivity disorder) F90.9 ; Night terror F51.4 ; Bulimia F50.2 ; Severe episode of recurrent major depressive disorder, with psychotic features F33.3 and PTSD ( post-traumatic stress disorder) F43.10 [place] [address], [place] [address]- 0352 Jun, ADHD (attention deficit hyperactivity disorder) F90.9 ; Night terror F51.4 ; Bulimia F50.2 ; Anxiety F41.9 ; Severe episode of recurrent major depressive disorder, with psychotic features F33.3 and PTSD ( post-traumatic stress disorder) F43.10 [place] [address], [place] [address]- 8208 May, Anxiety F41.9 [place] [address], [place] [address]- 6083 May, PTSD (post-traumatic stress disorder) F43.10 and Borderline personality disorder F60.3 [place] [address] [address]- 0377 Apr, [facility] [address] [place] [address] [id number] March, Dental examination Z01.20 and Dental caries K02.9 [facility] [id number] [place] [address] 19144- 2249 March, Dental examination Z01.20 [facility] [id number] [place] [address] 71187- 5513 March, Tooth abscess K04.7 and Tooth pain K08.89 [place] [id number] [place] [address] 64403- 9762 March, Borderline personality disorder F60.3 [facility] [id number] [place] [address] 23605- 7302 March, ADHD (attention deficit hyperactivity disorder) F90.9 ; Night terror F51.4 ; Bulimia F50.2 and Anxiety F41.9 [facility] [address] [place] [address] 08359- 0800 Feb, Borderline personality disorder F60.3 ; ADHD (attention deficit hyperactivity disorder) F90.9 ; Anxiety F41.9 ; Bulimia F50.2 ; Obsessive-compulsive disorder, unspecified type F42.9 and Night terror F51.4 [facility] [address] [place] [address] 39430- 0509 Feb, [facility] [address] [place] [address] 40291- 2542 Feb, [facility] [id number] [place] [address] 69672- 8054 Jul, [facility] [id number] [place] [address] 83605- 8861 Jul, [facility] [id number] [place] [address] 20324- 4753 Jul, [facility] [place] [facility] [address] [id number] [place] [address]- 8472 Jul, [facility] [place] [facility] [address] [id number] [place] [address]- 9486 Jun, [facility] [place] [facility] [address] [id number] [place] [address]- 6395 Jun, [facility] [place] [facility] [address] [id number] [place] [address]- 5367 Jun, [facility] [place] [facility] [address] [id number] [place] [address]- 3632 Jun, [facility] [place] [facility] [address] [id number] [place] [address]- 2588 Apr, [facility] [place] [facility] [address] [id number] [place] [address]- 9068 Apr, [facility] [place] [facility] [address] [id number] [place] [address]- 9054 March, [facility] [place] [facility] [address] [id number] [place] [address]- 9726 March, [facility] [place] [facility] [address] [id number] [place] [address]- 7333 Jan, [facility] [place] [facility] [address] [id number] [place] [address]- 3436 Jan, [facility] [place] [facility] [address] [id number] [place] [address]- 9173 Jan, [facility] [place] [facility] [address] [id number] [place] [address]- 4301 Jan, [facility] [place] [facility] [address] [id number] [place] [address]- 5200 Jan, [facility] [place] [facility] [address] [id number] [place] [address]- 8985 Dec, [facility] [place] [facility] [address] [id number] [place] [address]- 1359 Dec, [facility] [address] [id number] [place] [address]- 8833 Oct, [facility] [place] [facility] [address] [id number] [place] [address]- 1976 Oct, [facility] [place] [facility] [address] [id number] [place] [address]- 4087 Oct, [facility] [place] [facility] [address] [id number] [place] [address]- 4317 Oct, [facility] [place] [facility] [address] [id number] [place] [address]- 4813 Sep, [facility] [place] [facility] [address] [id number] [place] [address]- 6983 Sep, [facility] [place] [facility] [address] [id number] [place] [address]- 1028 Sep, [facility] [place] [facility] [address] [id number] [place] [address]- 5674 Aug, [facility] [place] [facility] [address] [id number] [place] [address]- 6813 Aug, [facility] [place] [facility] [address] [facility] [id number] [place] [address]- 1704 Aug, [facility] [place] [facility] [address] [id number] [place] [address]- 4028 Aug, [facility] [place] [facility] [address] [id number] [address]- 6856 Aug, [facility] [place] [facility] [address] [id number] [place] [address]- 2045 Aug, [facility] [place] [facility] [address] [id number], [place] [address]- 9097 Aug, [facility] [place] [facility] [address] [id number], [place] [address]- 7278 05 Jul, 2013 [facility] [place] [facility] [address] [id number] [place] [address]- 3477 Jun, [facility] [address] [id number] [place] [address]- 2707 Jun, [facility] [place] [facility] [address] [id number] [place] [address]- 7456 Jun, [facility] [place] [facility] [address] [id number] [place] [address]- 7818 Jun, [facility] [address] [id number] [place] [address]- 4517 Jun, [facility] [place] [facility] [address] [id number] [place] [address]- 4662 Jun, [facility] [place] [facility] [address] [id number] [place] [address]- 0663 May, [facility] [place] [facility] [address] [id number] [place] [address]- 0625 May, [facility] [place] [facility] [address] [id number] [place] [address]- 1313 May, [facility] [place] [facility] [address] [id number] [place] [address]- 1137 May, [facility] [place] [facility] [address] [id number] [place] [address]- 7846 March, [facility] [place] [facility] [address] [id number] [place] [address]- 2893 March, [facility] [place] [facility] [address] [id number] [place] [address]- 0121 March, [facility] [place] [facility] [address] [id number] [place] [address]- 2043 Feb, [facility] [place] [facility] [address] [id number] [place] [address]- 8858 Feb, [facility] [place] [facility] [address] [id number] [place] [address]- 3126 10 Feb, 2013 [facility] [address] [id number] [place] [address]- 6634 Feb, [facility] [address] [id number] [place] [address]- 9346 Jan, [facility] [address] [facility] [id number] [place] [address]- 2034 Jan, [facility] [address] [id number] [place] [address]- 7307 Jan, [facility] [address] [id number] [place] [address]- 8157 Dec, [facility] [address] [id number] [place] [address]- 4521 Dec, [facility] [address] [facility] [id number] [place] [address]- 2564 Dec, [facility] [address] [id number] [place] [address]- 9477 Dec, [facility] [address] [id number] [place] [address]- 3205 Dec, [facility] [address] [facility] [id number] [place] [address]- 0264 Nov, [facility] [address] [id number] [place] [address]- 7744 Nov, [facility] [address] [id number] [place] [address] 2547 Nov, [facility] [address] [id number] [place] [address] Nov, [facility] [place] [facility] [address] [id number] [place] [address] Oct, [facility] [address] [id number] [place] [address] Oct, [facility] [place] [facility] [address] [id number] [place] [address] Oct, [facility] [place] [facility] [address] [id number] [place] [address] Oct, [facility] [place] [facility] [address] [id number] [place] [address] Oct, [facility] [place] [facility] [address] [id number] [place] [address] Oct, [facility] [place] [facility] [address] [id number] [place] [address] Oct, [facility] [place] [facility] [address] [id number] [place] [address] Oct, [facility] [place] [facility] [address] [id number] [place] [address] Oct, [facility] [place] [facility] [address] [id number] [place] [address] Oct, [facility] [place] [facility] [address] [id number] [place] [address] Oct, [facility] [place] [facility] [address] [id number] [place] [address] Oct, [facility] [place] [facility] [address] [id number] [place] [address] Oct, [facility] [place] [facility] [address] [id number] [place] [address] Sep, [facility] [place] [facility] [address] [id number] [place] [address] Sep, [facility] [place] [facility] [address] [id number] [place] [address] Sep, [facility] [place] [facility] [address] [id number] [place] [address] Sep, [facility] [place] [facility] [address] [id number] [place] [address] Sep, [facility] [place] [facility] [address] [id number] [place] [address] Sep, [facility] [place] [facility] [address] [id number] [place] [address] Sep, [facility] [place] [facility] [address] [facility] [id number] [place] [address] Sep, [facility] [place] [facility] [address] [id number] [place] [address] Sep, [facility] [place] [facility] [address] [id number] [place] [address] Sep, [facility] [place] [facility] [address] [id number] [place] [address], [place] [address] Sep, [facility] [place] [facility] [address] [facility] [id number] [place] [address] Sep, [facility] [place] [facility] [address] [id number], [place] [address] Aug, [facility] [place] [facility] [address] [id number], [place] [address] Aug, [facility] [place] [facility] [address] [facility] [id number], [place] [address] Aug, [facility] [place] [facility] [address] [id number], [place] [address] Aug, [facility] [place] [facility] [address] [id number], [place] [address] Aug, [facility] [place] [facility] [address] [id number], [place] [address] Aug, [facility] [place] [facility] [address] [facility] [id number], [place] [address] Aug, [facility] [place] [facility] [address] [facility] [facility] [id number] [address] Aug, [facility] [place] [facility] [address] [id number] [place] [address] 08 Aug, 2012 [facility] [place] [facility] [address] [id number] [place] [address] 08 Aug, 2012 [facility] [place] [facility] [address] [id number] [place] [address] Aug, [facility] [place] [facility] [address] [id number] [place] [address] Aug, [facility] [place] [facility] [address] [id number] [place] [address] 28 Jul, 2012 [facility] [place] [facility] [address] [id number] [place] [address] 4067 27 Jul, 2012 [facility] [place] [facility] [address] [id number] [place] [address] 280[address] 21 Jul, 2012 [facility] [place] [facility] [address] [id number] [place] [address] 1176 10 Jul, 2012 [facility] [place] [facility] [address] [id number] [place] [address]13 05 Jul, 2012 [facility] [place] [facility] [address] [id number] [place] [address] 04 Jul, 2012 [facility] [place] [facility] [address] [id number] [place] [address]248 Jun, [facility] [place] [facility] [address] [id number] [place] [address] Jun, [facility] [place] [facility] [address] [id number] [place] [address] Jun, [facility] [place] [facility] [address] [id number] [place] [address] May, [facility] [place] [facility] [address] [id number] [place] [address] 6166 May, [facility] [place] [facility] [address] [id number] [place] [address] 14 May, 2012 [facility] [place] [facility] [address] [id number] [place] [address]- 1506 09 May, 2012 [facility] [place] [facility] [address] [id number] [place] [address] 115[address] May, [facility] [place] [facility] [address] [id number] [place] [address] 7233 05 May, 2012 [facility] [place] [facility] [address] [id number] [place] [address]- 3310 30 Apr, 2012 [facility] [place] [facility] [address] [id number] [place] [address] 8431 23 Feb, 2012 [facility] [place] [facility] [address] [id number] [place] [address]990 18 Feb, 2012 [facility] [place] [facility] [address] [id number] [place] [address] 9836 11 Feb, 2012 [facility] [place] [facility] [address] [id number] [place] [address] 8119 10 Feb, 2012 [facility] [place] [facility] [address] [id number] [place] [address] 8995 16 Jan, 2012 [facility] [place] [facility] [address] [id number] [place] [address]- 5551 12 Jan, 2012 [facility] [place] [facility] [address] [id number] [place] [address] 6341 29 Dec, 2011 [facility] [place] [facility] [address] [id number] [place] [address] 6575 28 Dec, 2011 [facility] [place] [facility] [address] [id number] [place] [address] 8662 Dec, [facility] [place] [facility] [address] [id number] [place] [address] 7770 14 Dec, 2011 [facility] [place] [facility] [address] [id number] [place] [address] 9633 14 Dec, 2011 [facility] [place] [facility] [address] [id number] [place] [address]- 4693 13 Dec, 2011 [facility] [address] [id number] [place] [address] 6816 09 Dec, 2011 [facility] [address] [id number] [place] [address] 3666 07 Dec, 2011 [facility] [address] [id number] [place] [address] 4536 02 Dec, 2011 [facility] [address] [id number] [place] [address]- 4205 30 Nov, 2011 [facility] [address] [id number] [place] [address] 7560 Nov, [facility] [address] [id number] [place] [address] 4944 24 Nov, 2011 [facility] [address] [id number] [place] [address] 7823 Nov, [facility] [address] [id number] [place] [address] 9918 17 Nov, 2011 [facility] [address] [id number] [place] [address] 2637 16 Nov, 2011 [facility] [address] [id number] [place] [address] 2739 Nov, [facility] [address] [id number] [place] [address] 7556 Nov, [facility] [address] [id number] [place] [address] 2878 Nov, [facility] [place] [facility] [address] [id number] [place] [address] 3233 Oct, [facility] [place] [facility] [address] [id number] [place] [address] 3546 Oct, [facility] [address] [id number] [place] [address] 3508 Oct, [facility] [place] [facility] [address] [id number] [place] [address] 3679 Oct, [facility] [place] [facility] [address] [id number] [place] [address]- 9886 Oct, [facility] [place] [facility] [address] [id number] [place] [address]- 9025 Oct, [facility] [place] [facility] [address] [id number] [place] [address]- 9190 Sep, [facility] [address] [id number] [place] [address] 0951 Aug, [facility] [place] [facility] [address] [id number] [place] [address]- 4681 Jul, [facility] [address] [id number] [place] [address]- 5254 Nov, [facility] [address] [id number] [place] [address]- 2202 Nov, [facility] [address] [id number] [place] [address]- 0745 Oct, [facility] [place] [facility] [address] [id number] [place] [address]- 8928 Sep, [facility] [place] [facility] [address] [id number] [place] [address]- 7733 Sep, [facility] [place] [facility] [address] [id number], [place] [address] 18 Aug, 2010 [facility] [place] [facility] [address] [id number] [place] [address]- 7255 14 Aug, 2010 [facility] [place] [facility] [address] [id number] [place] [address]- 3120 14 Aug, 2010 [facility] [place] [facility] [address] [id number] [place] [address]- 4235 13 Feb, 2010 [facility] [place] [facility] [address] [id number], [place] [address] 9109 Dec, [facility] [id number] [address] Oct, [facility] [id number] [address] 1511 Oct, [facility] [id number] [address] Oct, [facility] [id number] [place] [address]- 5682 Sep, [facility] [id number] [place] [address]68- 6345 Sep, [facility] [id number] [address] Sep, [facility] [id number] [address] Aug, [facility] [address] [id number] [address] 1068 Aug, IMMUNIZATIONS No Known Immunizations SOCIAL HISTORY Never Assessed REASON FOR VISIT Controlled Med Refill 05/28/18 PLAN OF CARE VITAL SIGNS MEDICATIONS Medication Instructions Dosage Frequency Start Date End Date Duration Status Tramadol HCl 50 mg Orally every 6 hrs 1 tablet as needed 6h March, Active RESULTS No Results PROCEDURES No Known [...] mental health issues x2 Ward Unit in [place] 2016 & 02/2017 Hospitalization History Surgery(s)/Childbirth(s)
--- OUTSIDE RECORDS SUMMARY | 2018-08-03 08:23 | XMS REPORT ---
Author Author TESS CRAIG Organization [facility] Address [address] [place] [address] Care Team Providers Care Armature Connector Name Role Phone RAFATESS Unavailable PROBLEMS Type Condition ICD9-CM Code [id number] Code Onset Dates Condition Status SNOMED Code Problem Adjustment disorder with mixed anxiety and depressed mood F43.23 Active 26877864 Problem Bipolar 1 disorder F31.9 Active 157997524 Problem Schizo affective schizophrenia F25.0 Active 694989586 Problem Dysmenorrhea N94.6 Active 851339686 Problem Morbid obesity due to excess calories E66.01 Active 968803669 Problem Cannabis use disorder, mild, abuse F12.10 Active 80389452 Problem Sciatica, unspecified side M54.30 Active 12336864 Problem Other chronic pain G89.29 Active 05622727 Problem Lumbago with sciatica, right side M54.41 Active 896844107 Problem Anxiety F41.9 Active 30687073 Problem PTSD (post-traumatic stress disorder) F43.10 Active 71134282 Problem Borderline personality disorder F60.3 Active 99328396 Problem Severe episode of recurrent major depressive disorder, with psychotic features F33.3 Active 27928775 Problem Night terror F51.4 Active 70438586 Problem Mood disorder F39 Active 20446428 ALLERGIES Substance Reaction Event Type Date Status Pseudoephedrine HCl ER unknown Drug Allergy May, Active Phenytoin rash Drug Allergy May, Active Penicillamine anaphylaxis Drug Allergy May, Active Cephalexin anaphylaxis Drug Allergy May, Active Albuterol unknown Drug Allergy May, Active ENCOUNTERS Encounter Location Date Diagnosis [facility] [address] [facility] [id number] [address] Jul, [facility] [address] [facility] [id number], [place] [address] Jul, BMI 45.0-49.9, adult Z68.42 ; Anxiety F41.9 ; Acute pain of left foot M79.672 and Acute swimmer''s ear of right side H60.331 [facility] [address] [address] Jun, [facility] [address] [address]- [address] Jun, PTSD (post-traumatic stress disorder) F43.10 ; Mood disorder F39 ; Borderline personality disorder F60.3 and Cannabis use disorder, mild, abuse F12.10 [facility] [address] [address]- [address] Jun, [place] [id number] [place] [address] 39845- 0085 Jun, PTSD (post-traumatic stress disorder) F43.10 [place] [address] [address]- 0629 Jun, Angier adverse reaction T43.595A and Sprain of anterior talofibular ligament of left ankle, initial encounter S93.492A [place] [address] [address]- 7[address] Jun, [facility] [id number] [place] [address] 34839- 0945 May, [place] [address] [address]- 3612 May, Skin tags, multiple acquired L91.8 ; Dysmenorrhea N94.6 and Acute non-recurrent maxillary sinusitis J01.00 [facility] [id number] [place] [address] 14593- 5515 May, PTSD (post-traumatic stress disorder) F43.10 [facility] [id number] [place] [address] 88169- 2518 May, Other intermediate (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 [place] [address] [place] [id number] [place] [address] 84645- 3389 11 May, 2018 PTSD (post-traumatic stress disorder) F43.10 ; Mood disorder F39 ; Borderline personality disorder F60.3 and Cannabis use disorder, mild, abuse F12.10 [place] [id number] [place] [address] 17069- 8901 May, BMI 40.0-44.9, adult Z68.41 [place] [address] [address]- 2006 18 Apr, 2018 BMI 40.0-44.9, adult Z68.[address] [address]- [address]244 14 Apr, 2018 Acute non-recurrent maxillary sinusitis J01.00 [place] [id number] [place] [address] 21487- 1090 11 Apr, 2018 PTSD (post-traumatic stress disorder) F43.10 ; Mood disorder F39 ; Borderline personality disorder F60.3 ; Cannabis use disorder, mild, abuse F12.10 and 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 [place] [id number] [place] [address] 98046- 1579 Apr, [place] [id number] [place] [address] 27463- 1015 Apr, Annual physical exam Z00.00 and High risk medication use Z79.899 [place] [id number] [place] [address] 98908- 0398 Apr, PTSD (post-traumatic stress disorder) F43.10 [place] [id number] [place] [address] 37283- 3762 Apr, [place] [id number] [place] [address] 36279- 2402 March, BMI 40.0-44.9, adult Z68.41 ; Morbid obesity due to excess calories E66.01 ; Lumbago with sciatica, right side M54.41 and Other chronic pain G89.29 [facility] [address] [address] March, PTSD (post-traumatic stress disorder) F43.10 [facility] [address] [address] March, PTSD (post-traumatic stress disorder) F43.10 ; Mood disorder F39 ; Borderline personality disorder F60.3 and Cannabis use disorder, mild, abuse F12.10 [facility] [address] [address] 4[address] Feb, [place] [id number] [place] [address] 19057- 2933 Feb, [facility] [address] [place] [id number] [place] [address] Feb, Breast cancer screening Z12.31 [place] [id number] [place] [address] 34903- 8256 Feb, Mood disorder F39 and PTSD (post-traumatic stress disorder) F43.10 [place] [address] [place] [address] 36981- 5833 Feb, PTSD (post-traumatic stress disorder) F43.10 ; Mood disorder F39 ; Borderline personality disorder F60.3 and Cannabis use disorder, mild, abuse F12.10 [place] [address] [address] 95[address] Feb, Schizo affective schizophrenia F25.0 ; Adjustment disorder with mixed anxiety and depressed mood F43.23 ; Night terror F51.4 ; Anxiety F41.9 and Borderline personality disorder F60.3 [place] [address] [place] [address] 83706- 8319 Feb, [place] [address] [place] [address] 11487- 8504 Feb, Mood disorder F39 [place] [id number] [place] [address] 97604- 6658 Feb, Annual physical exam Z00.00 ; BMI 40.0-44.9, adult Z68.41 and Nipple discharge N64.52 [facility] [id number] [place] [address] 22056- 6169 Jan, Schizo affective schizophrenia F25.0 ; Adjustment disorder with mixed anxiety and depressed mood F43.23 ; Night terror F51.4 ; Anxiety F41.9 and Borderline personality disorder F60.3 [facility] [id number] [place] [address] 96315- 6068 Jan, Mood disorder F39 ; PTSD (post-traumatic stress disorder) F43.10 ; Borderline personality disorder F60.3 and High risk medication use Z79.899 [place] [address] [id number] [place] [address] 57147- 2491 Dec, Anxiety F41.9 and Borderline personality disorder F60.3 [place] [address] [address] [id number] [place] [address] 07707- 4886 Dec, [place] [address] [address]59- 3972 Dec, Anxiety F41.9 and Borderline personality disorder F60.3 [facility] [id number] [place] [address] 67990- 0773 Dec, [facility] [id number] [place] [address] 57077- 3780 Dec, [facility] [id number] [place] [address] 70511- 0224 Nov, Acute non-recurrent maxillary sinusitis J01.00 ; Mood disorder F39 and Sciatica, unspecified side M54.30 [facility] [id number] [place] [address] 51587- 2413 Nov, Mood disorder F39 ; PTSD (post-traumatic stress disorder) F43.10 and Borderline personality disorder F60.3 [facility] [address] [place] [address] 91800- 0917 Nov, Anxiety F41.9 and Borderline personality disorder F60.3 [facility] [id number] [place] [address] 63201- 2930 Nov, [facility] [id number] [place] [address] 77547- 6622 Nov, Anxiety F41.9 and Sciatica, unspecified side M54.30 [facility] [id number] [place] [address] 33952- 3895 Oct, Anxiety F41.9 [place] [address] 54384- 4820 Oct, Mood disorder F39 ; PTSD (post-traumatic stress disorder) F43.10 ; Borderline personality disorder F60.3 and High risk medication use Z79.899 [facility] [address] [id number] Oct, Dental caries K02.9 and Dental examination Z01.20 [place] [id number] [place] [address] 98738- 2077 Sep, Dysuria R30.0 and Abdominal pain, right lower quadrant R10.31 [place] [id number] [place] [address] 47087- 3918 Aug, Mood disorder F39 ; PTSD (post-traumatic stress disorder) F43.10 and Borderline personality disorder F60.3 [facility] [address] [place] [address] 75776- 2328 Aug, [facility] [address] 50611- 0155 Aug, [facility] [id number] [place] [address] 91093- 0317 Aug, Severe episode of recurrent major depressive disorder, with psychotic features F33.3 ; PTSD (post-traumatic stress disorder) F43.10 ; Adjustment disorder with mixed anxiety and depressed mood F43.23 and Borderline personality disorder F60.3 [facility] [address] [place] [id number] [place] [address] 48421- 1046 Aug, Mood disorder F39 ; PTSD (post-traumatic stress disorder) F43.10 and Borderline personality disorder F60.3 [facility] [id number] [place] [address] 99297- 1696 Aug, [facility] [id number] [place] [address] 69391- 4406 Aug, Bipolar 1 disorder F31.9 and Schizo affective schizophrenia F25.0 [facility] [id number] [place] [address] 77958- 9246 Aug, Mood disorder F39 [facility] [id number] [place] [address] 30289- 6666 Aug, Bipolar 1 disorder F31.9 and Schizo affective schizophrenia F25.0 [facility] [id number] [place] [address] 01090- 6976 Aug, Bipolar 1 disorder F31.9 and Schizo affective schizophrenia F25.0 [facility] [id number] [place] [address] 09276- 1126 Aug, [facility] [id number] [place] [address] 27070- 2386 Aug, PTSD (post-traumatic stress disorder) F43.10 and Borderline personality disorder F60.3 [facility] [id number] [place] [address] 51039- 9226 Aug, [facility] [id number] [place] [address] [id number]- 0216 Aug, Mood disorder F39 ; PTSD (post-traumatic stress disorder) F43.10 ; Borderline personality disorder F60.3 and Adjustment disorder with mixed anxiety and depressed mood F43.23 [facility] [id number] [place] [address] 56375- 0335 Jul, [facility] [address] [address]- 6230 Jul, Mood disorder F39 ; PTSD (post-traumatic stress disorder) F43.10 and Borderline personality disorder F60.3 [facility] [address], [place] [address]- 6305 Jul, [facility] [id number] [place] [address] 25296- 4859 Jun, Anxiety F41.9 ; ADHD (attention deficit hyperactivity disorder) F90.9 ; Night terror F51.4 ; Bulimia F50.2 ; Severe episode of recurrent major depressive disorder, with psychotic features F33.3 and PTSD ( post-traumatic stress disorder) F43.10 [place] [address] [address]- 8106 Jun, Borderline personality disorder F60.3 ; Mood disorder F39 and PTSD (post-traumatic stress disorder) F43.10 [place] [address] [address]- 1223 Jun, Anxiety F41.9 [place] [address] [place] [address] 01755- 1733 Jun, Anxiety F41.9 ; ADHD (attention deficit hyperactivity disorder) F90.9 ; Night terror F51.4 ; Bulimia F50.2 ; Severe episode of recurrent major depressive disorder, with psychotic features F33.3 and PTSD ( post-traumatic stress disorder) F43.10 [place] [address] [place] [address] 13640- 4076 Jun, ADHD (attention deficit hyperactivity disorder) F90.9 ; Night terror F51.4 ; Bulimia F50.2 ; Anxiety F41.9 ; Severe episode of recurrent major depressive disorder, with psychotic features F33.3 and PTSD ( post-traumatic stress disorder) F43.10 [facility] [address] [address]- 1600 May, Anxiety F41.9 [facility] [address] [place] [address] 08888- 2327 May, PTSD (post-traumatic stress disorder) F43.10 and Borderline personality disorder F60.3 [facility] [address] [place] [address] 13395- 4527 Apr, [facility] [id number] [place] [address] [id number] March, Dental examination Z01.20 and Dental caries K02.9 [facility] [id number] [place] [address] 74110- 9608 March, Dental examination Z01.20 [facility] [id number] [place] [address] 12323- 4300 March, Tooth abscess K04.7 and Tooth pain K08.89 [place] [id number] [place] [address] 90043- 7496 March, Borderline personality disorder F60.3 [facility] [id number] [place] [address] 56236- 9009 March, ADHD (attention deficit hyperactivity disorder) F90.9 ; Night terror F51.4 ; Bulimia F50.2 and Anxiety F41.9 [facility] [address] [place] [address] 42852- 4003 Feb, Borderline personality disorder F60.3 ; ADHD (attention deficit hyperactivity disorder) F90.9 ; Anxiety F41.9 ; Bulimia F50.2 ; Obsessive-compulsive disorder, unspecified type F42.9 and Night terror F51.4 [facility] [id number] [place] [address] 22305- 4307 Feb, [facility] [id number] [place] [address] 01031- 1007 Feb, [facility] [id number] [place] [address] 68385- 3075 Jul, [facility] [place] [facility] [address] [id number] [place] [address]- 3522 Jul, [facility] [place] [facility] [address] [id number] [place] [address]- 6471 Jul, [facility] [place] [facility] [address] [id number] [place] [address]- 9199 Jul, [facility] [place] [facility] [address] [id number] [place] [address]- 7892 Jun, [facility] [place] [facility] [address] [id number] [place] [address]- 0126 Jun, [facility] [place] [facility] [address] [id number] [place] [address]- 8392 Jun, [facility] [place] [facility] [address] [id number] [place] [address]- 1865 Jun, [facility] [place] [facility] [address] [id number] [place] [address]- 2905 Apr, [facility] [place] [facility] [address] [id number] [place] [address]- 2027 Apr, [facility] [place] [facility] [address] [id number] [place] [address]- 2050 March, [facility] [place] [facility] [address] [id number] [place] [address]- 7422 March, [facility] [place] [facility] [address] [id number] [address]- 8206 Jan, [facility] [place] [facility] [address] [id number] [place] [address]- 8014 Jan, [facility] [place] [facility] [address] [id number] [place] [address]- 6213 Jan, [facility] [place] [facility] [address] [id number] [place] [address]- 6160 Jan, [facility] [place] [facility] [address] [id number] [place] [address]- 8326 Jan, [facility] [address] [id number] [place] [address]- 8961 Dec, [facility] [place] [facility] [address] [id number] [place] [address]- 2406 Dec, [facility] [place] [facility] [address] [id number] [place] [address]- 5858 Oct, [facility] [place] [facility] [address] [id number] [place] 3767 Oct, [facility] [place] [facility] [address] [id number] [place] [address]- 9957 Oct, [facility] [place] [facility] [address] [id number] [place] [address]- 6400 Oct, [facility] [place] [facility] [address] [id number] [place] [address]- 6401 Sep, [facility] [place] [facility] [address] [id number] [place] [address]- 9149 Sep, [facility] [place] [facility] [address] [id number] [place] [address]- 9829 Sep, [facility] [place] [facility] [address] [facility] [id number] [place] [address]- 8702 Aug, [facility] [place] [facility] [address] [id number] [place] [address]- 4780 Aug, [facility] [place] [facility] [address] [id number], [place] [address]- 3778 Aug, [facility] [place] [facility] [address] [id number] [place] 8900 Aug, [facility] [place] [facility] [address] [id number] [place] 8669 Aug, [facility] [place] [facility] [address] [id number] [place] 6414 Aug, [facility] [place] [facility] [address] [id number] [place] [address]- 7182 Aug, [facility] [address] [id number] [place] [address]- 5945 Jul, [facility] [address] [id number] [place] [address]- 3051 Jun, [facility] [address] [id number] [place] [address]- 3644 Jun, [facility] [address] [id number] [place] [address]- 1462 Jun, [facility] [address] [id number] [place] [address]- 8086 Jun, [facility] [address] [id number] [place] [address]- 8902 Jun, [facility] [address] [id number] [place] [address]- 0242 Jun, [facility] [address] [id number] [place] [address]- 5168 May, [facility] [address] [id number] [place] [address]- 2570 May, [facility] [address] [id number] [place] [address]- 0003 May, [facility] [place] [facility] [address] [id number] [place] [address]- 1330 May, [facility] [place] [facility] [address] [id number] [place] [address]- 6472 March, [facility] [place] [facility] [address] [id number] [place] [address]- 5350 March, [facility] [place] [facility] [address] [id number] [place] [address]- 2609 March, [facility] [place] [facility] [address] [id number], [place] [address]- 2484 30 Feb, 2013 [facility] [address] [id number] [place] [address]- 6477 29 Feb, 2013 [facility] [address] [id number] [place] [address]- 5771 10 Feb, 2013 [facility] [address] [facility] [id number] [place] [address]- 4189 04 Feb, 2013 [facility] [address] [id number] [place] [address]- 2905 27 Jan, 2013 [facility] [address] [id number] [place] [address]- 9039 Jan, [facility] [address] [facility] [id number] [place] [address]- 1102 Jan, [facility] [address] [facility] [id number] [place] [address]- 9932 Dec, [facility] [address] [id number] [place] [address]- 2662 14 Dec, 2012 [facility] [address] [facility] [id number] [place] [address]- 2333 Dec, [facility] [address] [facility] [id number] [place] [address]- 6668 Dec, [facility] [address] [facility] [id number] [place] [address]- 9648 04 Dec, 2012 [facility] [place] [facility] [address] [id number], [place] [address] Nov, [facility] [place] [facility] [address] [id number] [place] [address] 23 Nov, 2012 [facility] [place] [facility] [address] [facility] [id number] [place] [address] Nov, [facility] [place] [facility] [address] [facility] [id number], [place] [address] 14 Nov, 2012 [facility] [place] [facility] [address] [id number] [place] [address] Oct, [facility] [place] [facility] [address] [id number] [place] [address] Oct, [facility] [place] [facility] [address] [id number] [place] [address] Oct, [facility] [place] [facility] [address] [id number] [place] [address] Oct, [facility] [place] [facility] [address] [id number] [place] [address] Oct, [facility] [place] [facility] [address] [id number] [place] [address] Oct, [facility] [place] [facility] [address] [id number] [place] [address] Oct, [facility] [place] [facility] [address] [id number] [place] [address] Oct, [facility] [place] [facility] [address] [id number] [place] [address] Oct, [facility] [place] [facility] [address] [id number] [place] [address] Oct, [facility] [place] [facility] [address] [id number] [place] [address] Oct, [facility] [place] [facility] [address] [id number] [place] [address] Oct, [facility] [place] [facility] [address] [id number] [place] [address]- [address] Oct, [facility] [place] [facility] [address] [id number] [place] [address] Sep, [facility] [place] [facility] [address] [id number] [place] [address] Sep, [facility] [place] [facility] [address] [id number] [place] [address] Sep, [facility] [place] [facility] [address] [id number] [place] [address] Sep, [facility] [place] [facility] [address] [id number] [place] [address] Sep, [facility] [place] [facility] [address] [facility] [id number] [place] [address]- [address] Sep, [facility] [place] [facility] [address] [id number], [place] [address] Sep, [facility] [place] [facility] [address] [id number] [place] [address] Sep, [facility] [place] [facility] [address] [id number] [place] [address] Sep, [facility] [place] [facility] [address] [id number] [place] [address] Sep, [facility] [place] [facility] [address] [id number], [place] [address] Sep, [facility] [place] [facility] [address] [id number], [place] [address] Sep, [facility] [place] [facility] [address] [facility] [id number] [place] [address] Aug, [facility] [place] [facility] [address] [id number], [place] [address] 31 Aug, 2012 [facility] [place] [facility] [address] [id number] [address] Aug, [facility] [place] [facility] [address] [id number] [address] Aug, [facility] [place] [facility] [address] [facility] [id number] [address] 14 Aug, 2012 [facility] [place] [facility] [address] [facility] [id number] [address] 14 Aug, 2012 [facility] [place] [facility] [address] [id number] [place] [address] Aug, [facility] [place] [facility] [address] [id number] [place] [address] 9927 Aug, [facility] [place] [facility] [address] [id number] [place] [address] Aug, [facility] [place] [facility] [address] [id number] [place] [address] Aug, [facility] [place] [facility] [address] [id number] [place] [address] Aug, [facility] [place] [facility] [address] [id number] [place] [address]276 Aug, [facility] [place] [facility] [address] [id number] [place] [address] 345[address] 28 Jul, 2012 [facility] [place] [facility] [address] [id number] [place] [address]- 1176 27 Jul, 2012 [facility] [place] [facility] [address] [id number] [place] [address]- 2405 21 Jul, 2012 [facility] [place] [facility] [address] [id number] [place] [address] 7248 10 Jul, 2012 [facility] [place] [facility] [address] [id number] [place] [address]- 2657 05 Jul, 2012 [facility] [place] [facility] [address] [id number] [place] [address]- 5382 04 Jul, 2012 [facility] [place] [facility] [address] [id number] [place] [address]- 9587 Jun, [facility] [place] [facility] [address] [id number] [place] [address] 9498 Jun, [facility] [place] [facility] [address] [id number] [place] [address] 5684 Jun, [facility] [place] [facility] [address] [id number] [place] [address] 1464 May, [facility] [place] [facility] [address] [id number] [place] [address]- 1397 25 May, 2012 [facility] [place] [facility] [address] [id number] [place] [address] 6012 14 May, 2012 [facility] [place] [facility] [address] [id number] [place] [address]- 6686 09 May, 2012 [facility] [place] [facility] [address] [id number] [place] [address]- 5971 06 May, 2012 [facility] [place] [facility] [address] [id number] [place] [address]- 7537 05 May, 2012 [facility] [place] [facility] [address] [id number] [place] [address]- 5685 30 Apr, 2012 [facility] [place] [facility] [address] [id number] [place] [address]- 6544 23 Feb, 2012 [facility] [place] [facility] [address] [id number] [place] [address]- 0188 18 Feb, 2012 [facility] [place] [facility] [address] [id number] [place] [address]- 6343 11 Feb, 2012 [facility] [place] [facility] [address] [id number] [place] [address]- 6127 10 Feb, 2012 [facility] [place] [facility] [address] [id number] [place] [address]- 7511 16 Jan, 2012 [facility] [place] [facility] [address] [id number] [place] [address]- 5669 Jan, [facility] [place] [facility] [address] [id number] [place] [address]- 2477 29 Dec, 2011 [facility] [place] [facility] [address] [id number] [place] [address] 2817 28 Dec, 2011 [facility] [place] [facility] [address] [id number] [place] [address] Dec, [facility] [place] [facility] [address] [id number] [place] [address]- 2897 14 Dec, 2011 [facility] [address] [id number] [place] [address]- 2166 14 Dec, 2011 [facility] [address] [id number] [place] [address]- 4606 13 Dec, 2011 [facility] [address] [id number] [place] [address]- 8646 09 Dec, 2011 [facility] [address] [id number] [place] [address] 2548 07 Dec, 2011 [facility] [address] [id number] [place] [address]- 3242 02 Dec, 2011 [facility] [address] [id number] [place] [address]- 6744 30 Nov, 2011 [facility] [address] [id number] [place] [address]- 7583 Nov, [facility] [address] [id number] [place] [address]- 8980 24 Nov, 2011 [facility] [address] [id number] [place] [address]- 1523 Nov, [facility] [address] [id number] [place] [address]- 5456 17 Nov, 2011 [facility] [address] [id number] [place] [address]- 2635 16 Nov, 2011 [facility] [address] [id number] [place] [address]- 7210 Nov, [facility] [place] [facility] [address] [id number] [place] [address]- 4665 09 Nov, 2011 [facility] [place] [facility] [address] [id number] [place] [address]- 9876 Nov, [facility] [address] [id number] [place] [address]- 1544 Oct, [facility] [place] [facility] [address] [id number] [place] [address]- 8216 Oct, [facility] [place] [facility] [address] [id number] [place] [address]- 7338 Oct, [facility] [place] [facility] [address] [id number] [place] [address]- 9288 Oct, [facility] [place] [facility] [address] [id number] [place] [address]- 5743 Oct, [facility] [place] [facility] [address] [id number] [place] [address] Oct, [facility] [place] [facility] [address] [id number] [place] [address]- 0271 Sep, [facility] [place] [facility] [address] [id number] [place] [address]- 7451 Aug, [facility] [place] [facility] [address] [id number], [place] [address] 5113 Jul, [facility] [place] [facility] [address] [id number] [place] [address]- 4044 Nov, [facility] [place] [facility] [address] [facility] [id number], [place] [address]- [address]287 Nov, [facility] [place] [facility] [address] [id number], [place] [address]- 8277 Oct, [facility] [place] [facility] [address] [id number], [place] [address] 6039 Sep, [facility] [place] [facility] [address] [id number], [place] [address]- 6113 Sep, [facility] [place] [facility] [address] [id number], [place] [address]- 5642 18 Aug, 2010 [facility] [place] [facility] [address] [id number], [place] [address]- 9152 14 Aug, 2010 [facility] [place] [facility] [address] [id number], [place] [address]- 3201 14 Aug, 2010 [facility] [id number], [place] [address] 48[address] Feb, [facility] [id number] [address] Dec, [facility] [id number], [place] [address] 0190 Oct, [facility] [id number] [address] [address] Oct, [facility] [id number] [place] [address]- 5245 Oct, [facility] [id number] [place] [address]- 0449 Sep, [facility] [id number] [place] [address]- 7380 Sep, [facility] [id number], [place] [address]- 5461 Sep, [facility] [id number], [place] [address]- 4301 Aug, [facility] [id number], [place] [address]- 1516 Aug, IMMUNIZATIONS No Known Immunizations SOCIAL HISTORY Never Assessed REASON FOR VISIT LAUREL cabrales/shobha Easley MA PLAN OF CARE Activity Details Follow Up 4 Weeks Reason: f/u VITAL SIGNS Height 63 in 2018-05-23 Weight 263.4 lbs 2018-05-23 Heart Rate 130 bpm 2018-05-23 Respiratory Rate 20 2018-05-23 Oximetry on room air:96 % 2018-05-23 BMI 46.65 kg/m2 2018-05-23 Blood pressure systolic 118 mmHg 2018-05-23 Blood pressure diastolic 72 mmHg 2018-05-23 MEDICATIONS Medication Instructions Dosage Frequency Start Date End Date Duration Status BusPIRone HCl 10 mg Orally Three times a day 2 tablets 8h Active Tramadol HCl 50 mg Orally every 6 hrs 1 tablet as needed 6h March, Active Quetiapine Fumarate 300 MG Orally Once a day 1 tablet at bedtime 24h Active Desvenlafaxine Succinate ER 100 MG Orally in morning 1 tablet Active Amitriptyline HCl 50 MG Orally Once a day at bedtime 1 tablet Active Voltaren 1 % Transdermal 2 times a day apply 4gm as needed to lower back as needed 12h Nov, 30 days Active Gabapentin 800 MG Orally 3 times a day 1 tablet 8h Active Atorvastatin Calcium 20 mg Orally Once a day 1 tablet 24h Apr, 30 day(s) Active Seroquel 100 MG Orally Three times a day 1 tablet 8h Active Diclofenac Sodium 75 MG Orally Twice a day as needed 1 tablet with food or milk March, 30 day(s) Active Angier Carbonate 300 MG Orally 3 times a day 1 capsule 8h 30 days Active RESULTS No Results PROCEDURES [...] mental health issues x2 Ward Unit in [place] 2016 & 02/2017 Hospitalization History Surgery(s)/Childbirth(s)
--- OUTSIDE RECORDS SUMMARY | 2018-08-03 08:23 | XMS REPORT ---
Author Author RACHAEL CHEATHAM Organization [facility] Address [address] [place] [address] Care Team Providers Care Renal Case Manager Name Role Phone RACHAEL CHEATHAM Unavailable PROBLEMS Type Condition ICD9-CM Code [id number] Code Onset Dates Condition Status SNOMED Code Problem Adjustment disorder with mixed anxiety and depressed mood F43.23 Active 55186289 Problem Bipolar 1 disorder F31.9 Active 819205936 Problem Schizo affective schizophrenia F25.0 Active 201392218 Problem Dysmenorrhea N94.6 Active 055194314 Problem Morbid obesity due to excess calories E66.01 Active 902856324 Problem Cannabis use disorder, mild, abuse F12.10 Active 04276946 Problem Sciatica, unspecified side M54.30 Active 50767399 Problem Other chronic pain G89.29 Active 39250796 Problem Lumbago with sciatica, right side M54.41 Active 134153063 Problem Anxiety F41.9 Active 00433828 Problem PTSD (post-traumatic stress disorder) F43.10 Active 22949818 Problem Borderline personality disorder F60.3 Active 53682007 Problem Severe episode of recurrent major depressive disorder, with psychotic features F33.3 Active 84943313 Problem Night terror F51.4 Active 81918070 Problem Mood disorder F39 Active 07572799 ALLERGIES No Information ENCOUNTERS Encounter Location Date Diagnosis [facility] [id number] [address] Jul, [facility] [id number] [address] Jul, [facility] [id number] [address] 67[address] Jul, [facility] [id number] [address] Jun, [facility] [address] [place] [address] 17861- 6199 Jun, PTSD (post-traumatic stress disorder) F43.10 ; Mood disorder F39 ; Borderline personality disorder F60.3 and Cannabis use disorder, mild, abuse F12.10 [facility] [id number] [place] [address] 60839- 0800 Jun, [facility] [id number] [place] [address] 00386- 0384 Jun, PTSD (post-traumatic stress disorder) F43.10 [facility] [id number] [place] [address] 30019- 1342 Jun, Jena adverse reaction T43.595A and Sprain of anterior talofibular ligament of left ankle, initial encounter S93.492A [facility] [id number] [place] [address] 45173- 7287 Jun, [facility] [address] [address]- 8463 May, [facility] [id number] [place] [address] 37458- 8826 May, Skin tags, multiple acquired L91.8 ; Dysmenorrhea N94.6 and Acute non-recurrent maxillary sinusitis J01.00 [facility] [id number] [place] [address] 81907- 6161 May, PTSD (post-traumatic stress disorder) F43.10 [facility] [id number] [place] [address] 58811- 4999 May, Other prison (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 [place] [address] 60298- 4425 May, PTSD (post-traumatic stress disorder) F43.10 ; Mood disorder F39 ; Borderline personality disorder F60.3 and Cannabis use disorder, mild, abuse F12.10 [facility] [facility] [address] 13386- 1041 May, BMI 40.0-44.9, adult Z68.41 [facility] [id number] [place] [address] 10907- 9251 18 Apr, 2018 BMI 40.0-44.9, adult Z68.41 [facility] [id number] [place] [address] 02616- 6769 14 Apr, 2018 Acute non-recurrent maxillary sinusitis J01.00 [place] [address] 50395- 3892 11 Apr, 2018 PTSD (post-traumatic stress disorder) F43.10 ; Mood disorder F39 ; Borderline personality disorder F60.3 ; Cannabis use disorder, mild, abuse F12.10 and 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 [facility] [id number] [place] [address] 30750- 9665 08 Apr, [address] 26784- 7923 07 Apr, 2018 Annual physical exam Z00.00 and High risk medication use Z79.[address] 43906- 0366 07 Apr, 2018 PTSD (post-traumatic stress disorder) F43.10 [facility] [id number] [place] [address] 87115- 1376 Apr, [id number] [place] [address] 18243- 3392 March, BMI 40.0-44.9, adult Z68.41 ; Morbid obesity due to excess calories E66.01 ; Lumbago with sciatica, right side M54.41 and Other chronic pain G89.29 [facility] [id number] [place] [address] 62779- 8610 March, PTSD (post-traumatic stress disorder) F43.10 [id number] [place] [address] 71366- 4868 March, PTSD (post-traumatic stress disorder) F43.10 ; Mood disorder F39 ; Borderline personality disorder F60.3 and Cannabis use disorder, mild, abuse F12.10 [facility] [facility] [address] [address] 67[address] Feb, [facility] [address] [address] 3[address] Feb, [facility] [address] [id number] [address] Feb, Breast cancer screening Z12.31 [place] [address] [place] [address] 71692- 6980 Feb, Mood disorder F39 and PTSD (post-traumatic stress disorder) F43.10 [facility] [facility] [address] [address]- 2163 Feb, PTSD (post-traumatic stress disorder) F43.10 ; Mood disorder F39 ; Borderline personality disorder F60.3 and Cannabis use disorder, mild, abuse F12.10 [facility] [address] [place] [address] 49940- 4697 Feb, Schizo affective schizophrenia F25.0 ; Adjustment disorder with mixed anxiety and depressed mood F43.23 ; Night terror F51.4 ; Anxiety F41.9 and Borderline personality disorder F60.3 [facility] [address] [address]- 7196 Feb, [facility] [address] [place] [address] 34607- 1440 Feb, Mood disorder F39 [facility] [address] [place] [address] 50730- 2232 Feb, Annual physical exam Z00.00 ; BMI 40.0-44.9, adult Z68.41 and Nipple discharge N64.52 [facility] [place] [address] [place] [address] 98229- 3982 Jan, Schizo affective schizophrenia F25.0 ; Adjustment disorder with mixed anxiety and depressed mood F43.23 ; Night terror F51.4 ; Anxiety F41.9 and Borderline personality disorder F60.3 [place] [address] 77958- 1398 Jan, Mood disorder F39 ; PTSD (post-traumatic stress disorder) F43.10 ; Borderline personality disorder F60.3 and High risk medication use Z79.899 [place] [address] 17662- 0055 Dec, Anxiety F41.9 and Borderline personality disorder F60.3 [facility] [address] 02935- 3439 Dec, [facility] [address] 51451- 8951 Dec, Anxiety F41.9 and Borderline personality disorder F60.3 [place] [address] 59195- 8722 Dec, [facility] [address] 75178- 3143 Dec, [facility] [facility] [address] 50850- 9432 Nov, Acute non-recurrent maxillary sinusitis J01.00 ; Mood disorder F39 and Sciatica, unspecified side M54.30 [facility] [address] 91218- 1175 Nov, Mood disorder F39 ; PTSD (post-traumatic stress disorder) F43.10 and Borderline personality disorder F60.3 [place] [address] 52595- 8242 Nov, Anxiety F41.9 and Borderline personality disorder F60.3 [facility] [facility] [address] 28964- 4823 Nov, [facility] [id number] [place] [address] 68163- 0631 Nov, Anxiety F41.9 and Sciatica, unspecified side M54.30 [facility] [id number] [place] [address] 52077- 0433 Oct, Anxiety F41.9 [facility] [id number] [place] [address] 22441- 5756 Oct, Mood disorder F39 ; PTSD (post-traumatic stress disorder) F43.10 ; Borderline personality disorder F60.3 and High risk medication use Z79.899 [facility] [id number] [place] [address] [id number] Oct, Dental caries K02.9 and Dental examination Z01.20 [facility] [id number] [place] [address] 02351- 7272 Sep, Dysuria R30.0 and Abdominal pain, right lower quadrant R10.31 [facility] [id number] [place] [address] 22238- 4099 Aug, Mood disorder F39 ; PTSD (post-traumatic stress disorder) F43.10 and Borderline personality disorder F60.3 [facility] [id number] [place] [address] 11863- 7344 Aug, [facility] [id number] [place] [address] 47935- 6128 Aug, [facility] [id number] [place] [address] 14303- 4862 Aug, Severe episode of recurrent major depressive disorder, with psychotic features F33.3 ; PTSD (post-traumatic stress disorder) F43.10 ; Adjustment disorder with mixed anxiety and depressed mood F43.23 and Borderline personality disorder F60.3 [facility] [address] [place] [address] 56174- 9529 Aug, Mood disorder F39 ; PTSD (post-traumatic stress disorder) F43.10 and Borderline personality disorder F60.3 [facility] [address] [address]- 5323 Aug, [facility] [id number] [place] [address] 43693- 8817 Aug, Bipolar 1 disorder F31.9 and Schizo affective schizophrenia F25.0 [facility] [id number] [place] [address] 72948- 5106 Aug, Mood disorder F39 [facility] [id number] [place] [address] 09859- 0893 Aug, Bipolar 1 disorder F31.9 and Schizo affective schizophrenia F25.0 [facility] [id number] [place] [address] 60140- 9702 Aug, Bipolar 1 disorder F31.9 and Schizo affective schizophrenia F25.0 [facility] [id number] [place] [address] 70551- 4682 Aug, [facility] [id number] [place] [address] 80341- 9264 Aug, PTSD (post-traumatic stress disorder) F43.10 and Borderline personality disorder F60.3 [facility] [address] [place] [address] 81446- 6740 Aug, [facility] [address] [place] [address] 19711- 5092 Aug, Mood disorder F39 ; PTSD (post-traumatic stress disorder) F43.10 ; Borderline personality disorder F60.3 and Adjustment disorder with mixed anxiety and depressed mood F43.23 [facility] [address] [place] [address] 20258- 6960 Jul, [facility] [id number] [place] [address] 13566- 4314 Jul, Mood disorder F39 ; PTSD (post-traumatic stress disorder) F43.10 and Borderline personality disorder F60.3 [facility] [address] [address]- 3574 Jul, [facility] [id number] [place] [address] 07605- 0560 Jun, Anxiety F41.9 ; ADHD (attention deficit hyperactivity disorder) F90.9 ; Night terror F51.4 ; Bulimia F50.2 ; Severe episode of recurrent major depressive disorder, with psychotic features F33.3 and PTSD ( post-traumatic stress disorder) F43.10 [facility] [id number] [place] [address] 12803- 0148 Jun, Borderline personality disorder F60.3 ; Mood disorder F39 and PTSD (post-traumatic stress disorder) F43.10 [facility] [id number] [place] [address] 35512- 0340 Jun, Anxiety F41.9 [facility] [id number] [place] [address] 73904- 4195 Jun, Anxiety F41.9 ; ADHD (attention deficit hyperactivity disorder) F90.9 ; Night terror F51.4 ; Bulimia F50.2 ; Severe episode of recurrent major depressive disorder, with psychotic features F33.3 and PTSD ( post-traumatic stress disorder) F43.10 [address] [address] [place] [address] 54811- 0688 Jun, ADHD (attention deficit hyperactivity disorder) F90.9 ; Night terror F51.4 ; Bulimia F50.2 ; Anxiety F41.9 ; Severe episode of recurrent major depressive disorder, with psychotic features F33.3 and PTSD ( post-traumatic stress disorder) F43.10 [place] [address] [place] [address] 90580- 1964 May, Anxiety F41.9 [facility] [id number] [place] [address] 84757- 7306 May, PTSD (post-traumatic stress disorder) F43.10 and Borderline personality disorder F60.3 [facility] [id number] [place] [address] 62216- 9225 Apr, [facility] [id number] [address] March, Dental examination Z01.20 and Dental caries K02.9 [facility] [address] [address]- 3241 March, Dental examination Z01.20 [facility] [id number] [place] [address] 62279- 2625 March, Tooth abscess K04.7 and Tooth pain K08.89 [facility] [address] [place] [address] 11581- 7596 March, Borderline personality disorder F60.3 [facility] [address] [address]- 3397 March, ADHD (attention deficit hyperactivity disorder) F90.9 ; Night terror F51.4 ; Bulimia F50.2 and Anxiety F41.9 [facility] [address] [address]- 5861 Feb, Borderline personality disorder F60.3 ; ADHD (attention deficit hyperactivity disorder) F90.9 ; Anxiety F41.9 ; Bulimia F50.2 ; Obsessive-compulsive disorder, unspecified type F42.9 and Night terror F51.4 [facility] [id number] [address]- 2299 Feb, [facility] [address] [address]- 0327 Feb, [facility] [address] [address]- 2842 Jul, [facility] [address] [address]- 4064 Jul, [facility] [address] [address]- 8035 Jul, [facility] [address] [address]- 0487 Jul, [facility] [address] [id number] [place] [address]- 2564 Jun, [facility] [place] [facility] [address] [id number] [place] [address]- 3614 Jun, [facility] [place] [facility] [address] [id number] [place] [address]- 3015 Jun, [facility] [place] [facility] [address] [id number] [place] [address]- 4364 Jun, [facility] [place] [facility] [address] [id number] [place] [address]- 2539 Apr, [facility] [place] [facility] [address] [id number] [place] [address]- 3339 Apr, [facility] [place] [facility] [address] [id number] [place] [address]- 7566 March, [facility] [place] [facility] [address] [id number] [place] [address]- 9985 March, [facility] [place] [facility] [address] [id number] [place] [address]- 3086 Jan, [facility] [place] [facility] [address] [id number] [place] [address]- 5766 Jan, [facility] [place] [facility] [address] [id number] [place] [address]- 1852 Jan, [facility] [place] [facility] [address] [id number] [place] 9363 Jan, [facility] [place] [facility] [address] [id number] [place] [address]- 4116 Jan, [facility] [place] [facility] [address] [id number] [place] [address]- 2705 Dec, [facility] [place] [facility] [address] [id number] [place] 6160 Dec, [facility] [place] [facility] [address] [id number] [place] [address]- 4290 Oct, [facility] [place] [facility] [address] [id number] [place] 5580 Oct, [facility] [place] [facility] [address] [id number] [place] [address]- 6122 Oct, [facility] [place] [facility] [address] [id number] [place] [address]- 3949 Oct, [facility] [place] [facility] [address] [id number] [place] [address]- 7447 Sep, [facility] [place] [facility] [address] [id number] [place] [address]- 7836 Sep, [facility] [place] [facility] [address] [id number] [place] [address]- 9608 Sep, [facility] [place] [facility] [address] [id number] [address]- 4600 Aug, [facility] [place] [facility] [address] [id number] [place] [address]- 8507 Aug, [facility] [place] [facility] [address] [id number] [address]- 1433 Aug, [facility] [place] [facility] [address] [id number] [address]- 4427 Aug, [facility] [place] [facility] [address] [id number] [address]- 7310 Aug, [facility] [place] [facility] [address] [id number] [place] [address]- 4906 Aug, [facility] [place] [facility] [address] [id number] [address]- 9457 Aug, [facility] [place] [facility] [address] [id number] [address]- 7810 05 Jul, 2013 [facility] [place] [facility] [address] [id number] [place] [address]- 0726 Jun, [facility] [address] [id number] [place] [address]- 2774 Jun, [facility] [address] [id number] [place] [address]- 8669 Jun, [facility] [address] [id number] [place] [address]- 8261 Jun, [facility] [address] [id number] [place] [address]- 9200 Jun, [facility] [address] [id number] [place] [address]- 0753 Jun, [facility] [address] [id number] [place] [address]- 8282 May, [facility] [address] [id number] [place] [address]- 0225 May, [facility] [address] [id number] [place] [address]- 0790 May, [facility] [address] [id number] [place] [address]- 4806 May, [facility] [address] [id number] [place] [address]- 1409 March, [facility] [address] [id number] [place] [address]- 8395 March, [facility] [place] [facility] [address] [id number] [place] [address]- 4021 March, [facility] [place] [facility] [address] [id number] [place] [address]- 7485 Feb, [facility] [place] [facility] [address] [id number] [place] [address]- 4013 Feb, [facility] [place] [facility] [address] [id number] [place] [address]- 0062 Feb, [facility] [place] [facility] [address] [id number] [place] [address]- 9359 Feb, [facility] [place] [facility] [address] [id number] [place] [address]- 3823 Jan, [facility] [place] [facility] [address] [id number] [place] [address]- 4362 Jan, [facility] [place] [facility] [address] [id number] [place] [address]- 6121 Jan, [facility] [place] [facility] [address] [id number] [place] [address]- 4566 Dec, [facility] [place] [facility] [address] [id number] [place] [address]- 7052 Dec, [facility] [place] [facility] [address] [id number] [place] [address]- 6720 Dec, [facility] [place] [facility] [address] [id number] [place] [address]- 2403 Dec, [facility] [place] [facility] [address] [id number] [place] [address]- 1186 Dec, [facility] [place] [facility] [address] [id number] [place] [address]- 8141 Nov, [facility] [place] [facility] [address] [id number] [place] [address]- 7285 Nov, [facility] [place] [facility] [address] [id number] [place] [address]- 8701 Nov, [facility] [place] [facility] [address] [id number] [place] [address]- 7200 Nov, [facility] [place] [facility] [address] [id number] [place] [address]- 8146 Oct, [facility] [place] [facility] [address] [id number] [place] [address]- 8832 Oct, [facility] [place] [facility] [address] [id number] [place] [address]- 2003 Oct, [facility] [place] [facility] [address] [id number] [place] [address]- 2516 Oct, [facility] [place] [facility] [address] [id number] [place] [address]- 1696 Oct, [facility] [place] [facility] [address] [id number] [place] [address]- 5146 Oct, [facility] [place] [facility] [address] [id number] [place] [address]- 6716 Oct, [facility] [place] [facility] [address] [id number] [place] [address]- 2081 Oct, [facility] [place] [facility] [address] [id number] [place] [address]- 2806 Oct, [facility] [place] [facility] [address] [id number] [place] [address]- 1559 Oct, [facility] [place] [facility] [address] [id number] [place] [address]- 9448 Oct, [facility] [place] [facility] [address] [id number] [place] [address]- 2190 Oct, [facility] [place] [facility] [address] [id number] [place] [address]- 0345 Oct, [facility] [place] [facility] [address] [id number] [place] [address]- 9451 Sep, [facility] [place] [facility] [address] [id number] [place] [address]- 0057 Sep, [facility] [place] [facility] [address] [id number] [place] [address]- 0506 Sep, [facility] [place] [facility] [address] [id number] [place] [address]- 7059 Sep, [facility] [place] [facility] [address] [facility] [id number] [place] [address]- 1446 Sep, [facility] [place] [facility] [address] [id number] [place] [address]- 3977 Sep, [facility] [place] [facility] [address] [id number] [place] [address]- 0986 Sep, [facility] [place] [facility] [address] [id number] [place] [address] Sep, [facility] [place] [facility] [address] [id number] [place] [address] Sep, [facility] [place] [facility] [address] [id number] [place] [address] Sep, [facility] [place] [facility] [address] [id number] [place] [address] Sep, [facility] [place] [facility] [address] [id number] [place] [address] Sep, [facility] [place] [facility] [address] [id number] [place] [address] Aug, [facility] [place] [facility] [address] [id number] [place] [address] Aug, [facility] [place] [facility] [address] [id number] [place] [address] Aug, [facility] [place] [facility] [address] [id number] [place] [address] Aug, [facility] [place] [facility] [address] [id number] [place] [address] Aug, [facility] [place] [facility] [address] [id number] [place] [address] 14 Aug, 2012 [facility] [place] [facility] [address] [id number] [place] [address] Aug, [facility] [place] [facility] [address] [id number] [place] [address] Aug, [facility] [place] [facility] [address] [id number] [place] [address] Aug, [facility] [place] [facility] [address] [id number] [place] [address] 08 Aug, 2012 [facility] [place] [facility] [address] [id number] [place] [address] Aug, [facility] [place] [facility] [address] [id number] [place] [address] Aug, [facility] [place] [facility] [address] [id number] [place] [address] 28 Jul, 2012 [facility] [place] [facility] [address] [id number] [place] [address] 27 Jul, 2012 [facility] [place] [facility] [address] [id number] [place] [address] 21 Jul, 2012 [facility] [place] [facility] [address] [id number] [place] [address] Jul, [facility] [place] [facility] [address] [id number] [place] [address] 05 Jul, 2012 [facility] [place] [facility] [address] [id number] [place] [address] Jul, [facility] [place] [facility] [address] [id number] [place] [address] Jun, [facility] [place] [facility] [address] [id number] [place] [address] Jun, [facility] [place] [facility] [address] [id number] [address] Jun, [facility] [place] [facility] [address] [id number] [place] [address] May, [facility] [place] [facility] [address] [id number] [place] [address] May, [facility] [place] [facility] [address] [id number] [place] [address] May, [facility] [place] [facility] [address] [id number] [place] [address] 09 May, 2012 [facility] [place] [facility] [address] [id number] [place] [address] 06 May, 2012 [facility] [place] [facility] [address] [id number] [place] [address] 05 May, 2012 [facility] [place] [facility] [address] [id number] [place] [address] 30 Apr, 2012 [facility] [place] [facility] [address] [id number] [place] [address] 23 Feb, 2012 [facility] [place] [facility] [address] [id number] [place] [address] 18 Feb, 2012 [facility] [place] [facility] [address] [id number] [place] [address] 11 Feb, 2012 [facility] [place] [facility] [address] [id number] [place] [address] 10 Feb, 2012 [facility] [place] [facility] [address] [facility] [id number] [place] [address] 16 Jan, 2012 [facility] [place] [facility] [address] [id number] [place] [address] 12 Jan, 2012 [facility] [place] [facility] [address] [facility] [id number] [place] [address] 29 Dec, 2011 [facility] [place] [facility] [address] [facility] [id number] [place] [address] 44[address] 28 Dec, 2011 [facility] [place] [facility] [address] [facility] [id number] [place] [address] 21 Dec, 2011 [facility] [place] [facility] [address] [id number] [place] [address] 14 Dec, 2011 [facility] [place] [facility] [address] [facility] [id number] [place] [address] 14 Dec, 2011 [facility] [place] [facility] [address] [facility] [id number] [place] [address] 13 Dec, 2011 [facility] [address] [id number] [place] [address] 09 Dec, 2011 [facility] [place] [facility] [address] [id number] [place] [address] Dec, [facility] [address] [id number] [place] [address] Dec, [facility] [address] [id number] [place] [address] Nov, [facility] [address] [id number] [place] [address] Nov, [facility] [address] [id number] [place] [address] Nov, [facility] [address] [id number] [place] [address] Nov, [facility] [address] [id number] [place] [address] Nov, [facility] [address] [id number] [place] [address] Nov, [facility] [address] [facility] [id number] [place] [address] Nov, [facility] [address] [id number] [address] Nov, [facility] [place] [facility] [address] [id number] [address] Nov, [facility] [place] [facility] [address] [id number] [place] [address] Oct, [facility] [place] [facility] [address] [id number] [address] Oct, [facility] [place] [facility] [address] [facility] [id number] [place] [address] 38[address] Oct, [facility] [place] [facility] [address] [id number] [place] [address] 05 Oct, 2011 [facility] [address] [id number] [place] [address]- 1471 05 Oct, 2011 [facility] [place] [facility] [address] [id number] [place] [address] 9066 Oct, [facility] [place] [facility] [address] [id number] [place] [address] Sep, [facility] [place] [facility] [address] [id number] [place] [address] Aug, [facility] [place] [facility] [address] [id number] [place] [address] Jul, [facility] [place] [facility] [address] [id number] [place] [address] 69[address] Nov, [facility] [place] [facility] [address] [id number] [place] [address] 4[address] Nov, [facility] [place] [facility] [address] [id number] [place] [address] 269[address] Oct, [facility] [place] [facility] [address] [id number] [place] [address] Sep, [facility] [place] [facility] [address] [facility] [id number] [place] [address]- [address] Sep, [facility] [place] [facility] [address] [id number] [place] [address] 1186 18 Aug, 2010 [facility] [place] [facility] [address] [id number] [place] [address] 5549 14 Aug, 2010 [facility] [place] [facility] [address] [id number] [place] [address]- 1137 14 Aug, 2010 [facility] [place] [facility] [address] [id number] [place] [address] 13 Feb, 2010 [facility] [place] [facility] [address] [id number] [place] [address] 10 Dec, 2009 [facility] [address] [id number] [address] Oct, [facility] [id number] [address] Oct, [facility] [id number] [address] Oct, [facility] [id number] [place] [address] Sep, [facility] [id number] [place] [address]- [address] Sep, [facility] [id number] [place] [address] Sep, [facility] [id number] [address] Aug, [facility] [id number] [address] Aug, IMMUNIZATIONS No Known Immunizations SOCIAL HISTORY Never Assessed REASON FOR VISIT Repository Medication PLAN OF CARE VITAL SIGNS MEDICATIONS Medication [...] mental health issues x2 Ward Unit in [place] 2016 & 02/2017 Hospitalization History Surgery(s)/Childbirth(s)
--- OUTSIDE RECORDS SUMMARY | 2018-08-03 08:24 | XMS REPORT ---
Author Author TESS CRAIG [facility] Address [address] [place] [address] Care Team Providers Care Blocker [employer] Forms Name Role Phone RAFATESS Unavailable PROBLEMS Type Condition ICD9-CM Code [id number] Code Onset Dates Condition Status SNOMED Code Problem Adjustment disorder with mixed anxiety and depressed mood F43.23 Active 70314081 Problem Bipolar 1 disorder F31.9 Active 785063374 Problem Schizo affective schizophrenia F25.0 Active 007422660 Problem Dysmenorrhea N94.6 Active 795958141 Problem Morbid obesity due to excess calories E66.01 Active 373551856 Problem Cannabis use disorder, mild, abuse F12.10 Active 26012740 Problem Sciatica, unspecified side M54.30 Active 34618827 Problem Other chronic pain G89.29 Active 60486246 Problem Lumbago with sciatica, right side M54.41 Active 650023547 Problem Anxiety F41.9 Active 37959791 Problem PTSD (post-traumatic stress disorder) F43.10 Active 32379584 Problem Borderline personality disorder F60.3 Active 99254537 Problem Severe episode of recurrent major depressive disorder, with psychotic features F33.3 Active 64968478 Problem Night terror F51.4 Active 17638561 Problem Mood disorder F39 Active 14000591 ALLERGIES Substance Reaction Event Type Date Status Pseudoephedrine HCl ER unknown Drug Allergy Apr, Active Phenytoin rash Drug Allergy Apr, Active Penicillamine anaphylaxis Drug Allergy Apr, Active Cephalexin anaphylaxis Drug Allergy Apr, Active Albuterol unknown Drug Allergy Apr, Active ENCOUNTERS Encounter Location Date Diagnosis [facility] [address] [facility] [id number] [address] Jul, [facility] [address] [facility] [id number], [place] [address] Jul, [facility] [id number] [place] [address] 52906- 8614 Jul, [facility] [id number] [place] [address] 72514- 1485 Jun, [facility] [id number] [place] [address] 88216- 2676 Jun, PTSD (post-traumatic stress disorder) F43.10 ; Mood disorder F39 ; Borderline personality disorder F60.3 and Cannabis use disorder, mild, abuse F12.10 [facility] [id number] [place] [address] 83815- 5944 Jun, [facility] [id number] [place] [address] 17037- 4473 Jun, PTSD (post-traumatic stress disorder) F43.10 [facility] [id number] [place] [address] 50795- 6183 Jun, [place] adverse reaction T43.595A and Sprain of anterior talofibular ligament of left ankle, initial encounter S93.492A [facility] [id number] [place] [address] 92238- 2511 Jun, [facility] [id number] [place] [address] 47771- 7860 May, [facility] [id number] [place] [address] 49078- 4002 May, Skin tags, multiple acquired L91.8 ; Dysmenorrhea N94.6 and Acute non-recurrent maxillary sinusitis J01.00 [facility] [id number] [place] [address] 99065- 6436 May, PTSD (post-traumatic stress disorder) F43.10 [facility] [id number] [place] [address] 84571- 3655 May, Other bed bug exterminator (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 [facility] [id number] [place] [address] 16843- 7868 May, PTSD (post-traumatic stress disorder) F43.10 ; Mood disorder F39 ; Borderline personality disorder F60.3 and Cannabis use disorder, mild, abuse F12.10 [facility] [address] [place] [address] 67481- 8350 May, BMI 40.0-44.9, adult Z68.41 [address] [id number] [place] [address] 28280- 0426 18 Apr, 2018 BMI 40.0-44.9, adult Z68.41 [facility] [id number] [place] [address] 03657- 5936 14 Apr, 2018 Acute non-recurrent maxillary sinusitis J01.00 [address] [id number] [place] [address] 92703- 8940 11 Apr, 2018 PTSD (post-traumatic stress disorder) F43.10 ; Mood disorder F39 ; Borderline personality disorder F60.3 ; Cannabis use disorder, mild, abuse F12.10 and Other bed bug exterminator (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 [facility] [id number] [place] [address] 43085- 6426 08 Apr, 2018 [address] [id number] [place] [address] 51467- 6132 07 Apr, 2018 Annual physical exam Z00.00 and High risk medication use Z79.899 [address] [id number] [place] [address] 24099- 2096 07 Apr, 2018 PTSD (post-traumatic stress disorder) F43.10 [facility] [address] [place] [address] 63294- 3968 Apr, [place] [id number] [place] [address] 00758- 7967 March, BMI 40.0-44.9, adult Z68.41 ; Morbid obesity due to excess calories E66.01 ; Lumbago with sciatica, right side M54.41 and Other chronic pain G89.29 [facility] [address] [address] March, PTSD (post-traumatic stress disorder) F43.10 [facility] [id number] [place] [address] 83771- 1205 March, PTSD (post-traumatic stress disorder) F43.10 ; Mood disorder F39 ; Borderline personality disorder F60.3 and Cannabis use disorder, mild, abuse F12.10 [facility] [id number] [place] [address] 18297- 7392 Feb, [facility] [address] [place] [address] 12651- 4754 Feb, [facility] [address] [place] [id number] [place] [address] Feb, Breast cancer screening Z12.31 [facility] [id number] [place] [address] 16805- 8380 Feb, Mood disorder F39 and PTSD (post-traumatic stress disorder) F43.10 [facility] [address] [address] 4890 Feb, PTSD (post-traumatic stress disorder) F43.10 ; Mood disorder F39 ; Borderline personality disorder F60.3 and Cannabis use disorder, mild, abuse F12.10 [facility] [address] [address] 98[address] Feb, Schizo affective schizophrenia F25.0 ; Adjustment disorder with mixed anxiety and depressed mood F43.23 ; Night terror F51.4 ; Anxiety F41.9 and Borderline personality disorder F60.3 [facility] [id number] [place] [address] 57681- 3624 Feb, [facility] [id number] [place] [address] 37945- 6362 Feb, Mood disorder F39 [facility] [address] [place] [address] 35321- 5982 Feb, Annual physical exam Z00.00 ; BMI 40.0-44.9, adult Z68.41 and Nipple discharge N64.52 [facility] [facility] [address] 33649- 9208 Jan, Schizo affective schizophrenia F25.0 ; Adjustment disorder with mixed anxiety and depressed mood F43.23 ; Night terror F51.4 ; Anxiety F41.9 and Borderline personality disorder F60.3 [facility] [address] 39601- 9066 Jan, Mood disorder F39 ; PTSD (post-traumatic stress disorder) F43.10 ; Borderline personality disorder F60.3 and High risk medication use Z79.899 [facility] [facility] [address] 68720- 8904 Dec, Anxiety F41.9 and Borderline personality disorder F60.3 [facility] [facility] [address] 60395- 3861 Dec, [facility] [address] 13382- 9770 Dec, Anxiety F41.9 and Borderline personality disorder F60.3 [facility] [address] 64207- 8955 Dec, [facility] [address] 17733- 4995 Dec, [facility] [address] 78269- 6990 Nov, Acute non-recurrent maxillary sinusitis J01.00 ; Mood disorder F39 and Sciatica, unspecified side M54.30 [facility] [id number] [place] [address] 54116- 9095 Nov, Mood disorder F39 ; PTSD (post-traumatic stress disorder) F43.10 and Borderline personality disorder F60.3 [facility] [facility] [address] [place] [address]- 9941 Nov, Anxiety F41.9 and Borderline personality disorder F60.3 [facility] [address] 34000- 8403 Nov, [facility] [address] 18100- 9233 Nov, Anxiety F41.9 and Sciatica, unspecified side M54.30 [facility] [facility] [address] 13093- 9946 Oct, Anxiety F41.9 [facility] [address] 47500- 331 Oct, Mood disorder F39 ; PTSD (post-traumatic stress disorder) F43.10 ; Borderline personality disorder F60.3 and High risk medication use Z79.899 [facility] [address] [id number] Oct, 2017 Dental caries K02.9 and Dental examination Z01.20 [facility] [facility] [id number] [place] [address] 48356- 9647 Sep, Dysuria R30.0 and Abdominal pain, right lower quadrant R10.31 [facility] [id number] [place] [address] 51006- 0585 Aug, Mood disorder F39 ; PTSD (post-traumatic stress disorder) F43.10 and Borderline personality disorder F60.3 [facility] [id number] [place] [address] 84141- 8953 Aug, [facility] [id number] [place] [address] 94211- 1594 Aug, [facility] [id number] [place] [address] 50863- 2426 Aug, Severe episode of recurrent major depressive disorder, with psychotic features F33.3 ; PTSD (post-traumatic stress disorder) F43.10 ; Adjustment disorder with mixed anxiety and depressed mood F43.23 and Borderline personality disorder F60.3 [facility] [id number] [place] [address] 98055- 7366 Aug, Mood disorder F39 ; PTSD (post-traumatic stress disorder) F43.10 and Borderline personality disorder F60.3 [facility] [id number] [place] [address] 58313 2546 Aug, [facility] [id number] [place] [address] 84240- 1846 Aug, Bipolar 1 disorder F31.9 and Schizo affective schizophrenia F25.0 [facility] [id number] [place] [address] 56373- 0966 Aug, Mood disorder F39 [facility] [id number] [place] [address] 79722- 7606 Aug, Bipolar 1 disorder F31.9 and Schizo affective schizophrenia F25.0 [facility] [id number] [place] [address] 50078- 7116 Aug, Bipolar 1 disorder F31.9 and Schizo affective schizophrenia F25.0 [facility] [id number] [place] [address] 62586- 8676 Aug, [facility] [address] [place] [address] 47718- 0586 Aug, PTSD (post-traumatic stress disorder) F43.10 and Borderline personality disorder F60.3 [facility] [id number] [place] [address] 94260 2546 Aug, [facility] [id number] [place] [address] 42603 2546 Aug, Mood disorder F39 ; PTSD (post-traumatic stress disorder) F43.10 ; Borderline personality disorder F60.3 and Adjustment disorder with mixed anxiety and depressed mood F43.23 [facility] [id number] [place] [address] 24000- 5266 Jul, [facility] [address] [address]- 3572 Jul, Mood disorder F39 ; PTSD (post-traumatic stress disorder) F43.10 and Borderline personality disorder F60.3 [facility] [address] [address]- 8659 Jul, [facility] [address] [place] [address] 69525- 3069 Jun, Anxiety F41.9 ; ADHD (attention deficit hyperactivity disorder) F90.9 ; Night terror F51.4 ; Bulimia F50.2 ; Severe episode of recurrent major depressive disorder, with psychotic features F33.3 and PTSD ( post-traumatic stress disorder) F43.10 [place] [address] [address]- 7406 Jun, Borderline personality disorder F60.3 ; Mood disorder F39 and PTSD (post-traumatic stress disorder) F43.10 [place] [address], [place] [address]- 5033 Jun, Anxiety F41.9 [facility] [id number] [place] [address] 61698- 7359 Jun, Anxiety F41.9 ; ADHD (attention deficit hyperactivity disorder) F90.9 ; Night terror F51.4 ; Bulimia F50.2 ; Severe episode of recurrent major depressive disorder, with psychotic features F33.3 and PTSD ( post-traumatic stress disorder) F43.10 [facility] [address], [place] [address]- 8778 Jun, ADHD (attention deficit hyperactivity disorder) F90.9 ; Night terror F51.4 ; Bulimia F50.2 ; Anxiety F41.9 ; Severe episode of recurrent major depressive disorder, with psychotic features F33.3 and PTSD ( post-traumatic stress disorder) F43.10 [facility] [address], [place] [address]- 2370 May, Anxiety F41.9 [facility] [facility] [address], [place] [address]- 5704 May, PTSD (post-traumatic stress disorder) F43.10 and Borderline personality disorder F60.3 [facility] [address] [place] [address] 96871- 2598 Apr, [facility] [address] [id number] March, Dental examination Z01.20 and Dental caries K02.9 [facility] [id number] [place] [address] 38385- 6796 March, Dental examination Z01.20 [facility] [id number] [place] [address] 37511- 4262 March, Tooth abscess K04.7 and Tooth pain K08.89 [facility] [id number] [place] [address] 77147- 6771 March, Borderline personality disorder F60.3 [facility] [id number] [place] [address] 50412- 3594 March, ADHD (attention deficit hyperactivity disorder) F90.9 ; Night terror F51.4 ; Bulimia F50.2 and Anxiety F41.9 [facility] [address] [place] [address] 56534- 5748 Feb, Borderline personality disorder F60.3 ; ADHD (attention deficit hyperactivity disorder) F90.9 ; Anxiety F41.9 ; Bulimia F50.2 ; Obsessive-compulsive disorder, unspecified type F42.9 and Night terror F51.4 [facility] [address] [place] [address] 05698- 7573 Feb, [facility] [id number] [place] [address] 56038- 9279 Feb, [facility] [id number] [place] [address] 99604- 3419 04 Jul, 2014 [facility] [place] [facility] [address] [id number] [place] [address]- 6974 Jul, [facility] [place] [facility] [address] [id number] [place] [address]- 0471 Jul, [facility] [place] [facility] [address] [id number] [place] [address]- 3126 Jul, [facility] [place] [facility] [address] [id number] [place] [address]- 1968 Jun, [facility] [place] [facility] [address] [id number] [place] [address]- 1957 Jun, [facility] [place] [facility] [address] [id number] [place] [address]- 0124 Jun, [facility] [place] [facility] [address] [id number] [place] [address]- 6627 Jun, [facility] [place] [facility] [address] [id number] [place] [address]- 0800 Apr, [facility] [place] [facility] [address] [id number] [place] [address]- 6824 Apr, [facility] [place] [facility] [address] [id number] [place] [address]- 7930 March, [facility] [place] [facility] [address] [id number] [place] [address]- 8818 March, [facility] [place] [facility] [address] [id number] [place] [address]- 7478 Jan, [facility] [place] [facility] [address] [id number] [place] [address]- 5211 Jan, [facility] [place] [facility] [address] [id number] [place] [address]- 5281 Jan, [facility] [place] [facility] [address] [id number] [place] [address]- 3586 Jan, [facility] [place] [facility] [address] [id number] [place] [address]- 4426 Jan, [facility] [address] [id number] [place] [address]- 3927 Dec, [facility] [place] [facility] [address] [id number] [place] [address]- 8916 Dec, [facility] [place] [facility] [address] [id number] [place] [address]- 8442 Oct, [facility] [place] [facility] [address] [id number] [place] [address]- 0543 Oct, [facility] [place] [facility] [address] [id number] [place] [address]- 7083 Oct, [facility] [place] [facility] [address] [id number] [place] [address]- 1758 Oct, [facility] [place] [facility] [address] [facility] [id number] [place] [address]- 7461 Sep, [facility] [place] [facility] [address] [id number], [place] [address]- 8238 Sep, [facility] [place] [facility] [address] [id number], [place] [address]- 5030 Sep, [facility] [place] [facility] [address] [facility] [id number], [place] [address]- 6085 Aug, [facility] [place] [facility] [address] [id number], [place] [address]- 2050 Aug, [facility] [place] [facility] [address] [id number], [place] [address]- 4998 Aug, [facility] [place] [facility] [address] [id number], [place] [address]- 0729 Aug, [facility] [place] [facility] [address] [id number], [place] [address]- 9485 Aug, [facility] [place] [facility] [address] [facility] [id number], [place] [address]- 4908 Aug, [facility] [place] [facility] [address] [id number] [place] [address]- 2666 Aug, [facility] [address] [id number] [place] [address]- 1934 Jul, [facility] [address] [id number] [place] [address]- 4017 Jun, [facility] [address] [id number] [place] [address]- 8880 Jun, [facility] [place] [facility] [address] [id number] [place] [address]- 5270 Jun, [facility] [address] [id number] [place] [address]- 5380 Jun, [facility] [address] [id number] [place] [address]- 6814 Jun, [facility] [address] [id number] [place] [address]- 6018 Jun, [facility] [address] [id number] [place] [address]- 7517 May, [facility] [address] [id number] [place] [address]- 1670 May, [facility] [address] [id number] [place] [address]- 3118 May, [facility] [address] [id number] [place] [address]- 8947 May, [facility] [place] [facility] [address] [id number] [place] [address]- 3885 March, [facility] [place] [facility] [address] [id number] [place] [address]- 5691 March, [facility] [place] [facility] [address] [id number] [place] [address]- 2181 March, [facility] [address] [id number] [place] [address]- 3496 Feb, [facility] [place] [facility] [address] [id number] [place] [address]- 3129 29 Feb, 2013 [facility] [place] [facility] [address] [id number] [place] [address]- 5969 Feb, [facility] [place] [facility] [address] [id number] [place] [address]- 1729 04 Feb, 2013 [facility] [place] [facility] [address] [id number] [place] [address]- 4305 Jan, [facility] [place] [facility] [address] [id number] [place] [address]- 2627 Jan, [facility] [place] [facility] [address] [id number] [place] [address]- 5371 Jan, [facility] [place] [facility] [address] [id number] [place] [address]- 9661 Dec, [facility] [place] [facility] [address] [id number] [place] [address]- 1867 Dec, [facility] [place] [facility] [address] [id number] [place] [address]- 2154 Dec, [facility] [place] [facility] [address] [id number] [place] [address]- 7900 Dec, [facility] [place] [facility] [address] [id number] [place] [address]- 7806 Dec, [facility] [place] [facility] [address] [id number] [place] [address]- 9386 Nov, [facility] [place] [facility] [address] [id number] [place] [address]- 7537 Nov, [facility] [place] [facility] [address] [id number] [place] [address]- 2226 Nov, [facility] [place] [facility] [address] [id number] [place] [address]- 9622 14 Nov, 2012 [facility] [place] [facility] [address] [id number], [place] [address]- 5047 Oct, [facility] [place] [facility] [address] [id number] [place] [address]- 5126 Oct, [facility] [place] [facility] [address] [id number] [place] [address]- 9936 Oct, [facility] [place] [facility] [address] [id number] [place] [address]- 0406 Oct, [facility] [place] [facility] [address] [id number] [place] [address]- 3036 Oct, [facility] [place] [facility] [address] [id number] [place] [address]- 8366 Oct, [facility] [place] [facility] [address] [id number] [place] [address]- 8556 Oct, [facility] [address] [id number] [place] [address]- 6755 Oct, [facility] [place] [facility] [address] [id number] [place] [address]- 9909 Oct, [facility] [place] [facility] [address] [id number] [place] [address]- 9596 Oct, [facility] [place] [facility] [address] [facility] [id number] [place] [address]- 2448 Oct, [facility] [place] [facility] [address] [id number] [place] [address] Oct, [facility] [place] [facility] [address] [id number] [place] [address] Oct, [facility] [place] [facility] [address] [id number] [place] [address] Sep, [facility] [place] [facility] [address] [id number] [place] [address] Sep, [facility] [place] [facility] [address] [id number] [place] [address] Sep, [facility] [place] [facility] [address] [id number] [place] [address] Sep, [facility] [place] [facility] [address] [id number] [place] [address] Sep, [facility] [place] [facility] [address] [id number] [place] [address] Sep, [facility] [place] [facility] [address] [id number] [place] [address] Sep, [facility] [place] [facility] [address] [id number] [place] [address] Sep, [facility] [place] [facility] [address] [id number] [place] [address] Sep, [facility] [place] [facility] [address] [id number] [place] [address] Sep, [facility] [place] [facility] [address] [id number] [place] [address] Sep, [facility] [place] [facility] [address] [id number] [place] [address] Sep, [facility] [place] [facility] [address] [id number] [place] [address] Aug, [facility] [place] [facility] [address] [id number] [place] [address] 31 Aug, 2012 [facility] [place] [facility] [address] [id number] [place] [address] Aug, [facility] [place] [facility] [address] [id number] [place] [address] Aug, [facility] [place] [facility] [address] [id number] [place] [address] 14 Aug, 2012 [facility] [place] [facility] [address] [id number] [place] [address] 14 Aug, 2012 [facility] [place] [facility] [address] [id number] [place] [address] Aug, [facility] [place] [facility] [address] [id number] [place] [address] Aug, [facility] [place] [facility] [address] [id number] [place] [address] Aug, [facility] [place] [facility] [address] [id number] [place] [address] Aug, [facility] [place] [facility] [address] [id number] [place] [address] Aug, [facility] [place] [facility] [address] [id number] [place] [address] Aug, [facility] [place] [facility] [address] [id number] [place] [address] 28 Jul, 2012 [facility] [place] [facility] [address] [id number] [place] [address] 27 Jul, 2012 [facility] [place] [facility] [address] [id number] [place] [address] 21 Jul, 2012 [facility] [place] [facility] [address] [id number] [place] [address] 10 Jul, 2012 [facility] [place] [facility] [address] [id number] [place] [address] 05 Jul, 2012 [facility] [place] [facility] [address] [id number] [address] Jul, [facility] [place] [facility] [address] [id number], [place] [address] Jun, [facility] [place] [facility] [address] [id number] [place] [address] Jun, [facility] [place] [facility] [address] [id number][place] [address] Jun, [facility] [place] [facility] [address] [id number] [address] May, [facility] [place] [facility] [address] [id number] [place] [address] 3538 25 May, 2012 [facility] [place] [facility] [address] [id number] [place] [address] 7899 14 May, 2012 [facility] [place] [facility] [address] [id number] [place] [address] May, [facility] [place] [facility] [address] [id number] [place] [address] 06 May, 2012 [facility] [place] [facility] [address] [id number] [place] [address] 4[address] 05 May, 2012 [facility] [place] [facility] [address] [id number] [place] [address] 6346 30 Apr, 2012 [facility] [place] [facility] [address] [id number] [place] [address] 6540 23 Feb, 2012 [facility] [place] [facility] [address] [id number] [place] [address] 3850 18 Feb, 2012 [facility] [place] [facility] [address] [id number] [place] [address]- 2291 11 Feb, 2012 [facility] [place] [facility] [address] [id number] [place] [address] 4678 10 Feb, 2012 [facility] [place] [facility] [address] [facility] [id number] [place] [address] 8379 16 Jan, 2012 [facility] [place] [facility] [address] [id number] [place] [address] 8409 12 Jan, 2012 [facility] [place] [facility] [address] [id number] [place] [address] 0397 29 Dec, 2011 [facility] [place] [facility] [address] [id number] [place] [address] 4201 28 Dec, 2011 [facility] [place] [facility] [address] [id number] [place] [address] 7715 21 Dec, 2011 [facility] [place] [facility] [address] [id number] [place] [address] 7460 14 Dec, 2011 [facility] [address] [id number] [place] [address]- 5750 14 Dec, 2011 [facility] [place] [facility] [address] [id number] [place] [address]- 9686 13 Dec, 2011 [facility] [place] [facility] [address] [id number] [place] [address]- 0286 09 Dec, 2011 [facility] [place] [facility] [address] [id number] [place] [address]- 6206 07 Dec, 2011 [facility] [place] [facility] [address] [id number] [place] [address] 7446 Dec, [facility] [place] [facility] [address] [id number] [place] [address] 1816 Nov, [facility] [place] [facility] [address] [id number] [place] [address] 4496 Nov, [facility] [place] [facility] [address] [id number] [place] [address] 3030 Nov, [facility] [place] [facility] [address] [id number] [place] [address] 7006 Nov, [facility] [place] [facility] [address] [id number] [place] [address]- 5446 Nov, [facility] [place] [facility] [address] [id number] [place] [address]- 3426 16 Nov, 2011 [facility] [place] [facility] [address] [id number] [place] [address]- 5626 Nov, [facility] [place] [facility] [address] [id number] [place] [address]- 8836 Nov, [facility] [place] [facility] [address] [id number] [place] [address]- 3766 Nov, [facility] [place] [facility] [address] [id number] [place] [address] 3676 Oct, [facility] [place] [facility] [address] [id number] [place] [address] 9643 Oct, [facility] [place] [facility] [address] [id number] [place] [address]- 3992 Oct, [facility] [place] [facility] [address] [id number] [place] [address] 8887 Oct, [facility] [place] [facility] [address] [id number] [place] [address]- 5996 Oct, [facility] [place] [facility] [address] [id number] [place] [address]- 1490 Oct, [facility] [place] [facility] [address] [id number] [place] [address] 3179 Sep, [facility] [place] [facility] [address] [id number] [place] [address] 5972 Aug, [facility] [place] [facility] [address] [id number] [place] [address]- 7176 Jul, [facility] [place] [facility] [address] [id number] [place] [address] 3877 Nov, [facility] [place] [facility] [address] [id number] [place] [address]- 9077 Nov, [facility] [place] [facility] [address] [facility] [id number] [place] [address]- 7687 Oct, [facility] [place] [facility] [address] [id number] [place] [address]- 8464 Sep, [facility] [place] [facility] [address] [id number] [place] [address]- 0936 Sep, [facility] [place] [facility] [address] [id number] [place] [address]- 7201 18 Aug, 2010 [facility] [place] [facility] [address] [id number] [place] [address]- 7380 14 Aug, 2010 [facility] [place] [facility] [address] [id number] [place] [address]- 5745 14 Aug, 2010 [facility] [address] [id number] [address] Feb, [facility] [address] [address]60 Dec, [facility] [address] [address] 96[address] Oct, [facility] [id number], [place] [address] Oct, [facility] [id number] [address] Oct, [facility] [address], [place] [address] 3057 Sep, [facility] [address] [address] 480[address] Sep, [facility] [address], [place] [address] 5164 Sep, [facility] [address] [place] [address] Aug, [facility] [address] [id number], [place] [address] Aug, IMMUNIZATIONS No Known Immunizations SOCIAL HISTORY Never Assessed REASON FOR VISIT LAUREL cabrales/shobha Easley MA PLAN OF CARE Activity Details Follow Up 4 Weeks Reason: f/u VITAL SIGNS Height 63 in 2018-04-23 Weight 249 lbs 2018-04-23 Heart Rate 120 bpm 2018-04-23 Respiratory Rate 20 2018-04-23 BMI 44.10 kg/m2 2018-04-23 Blood pressure systolic 120 mmHg 2018-04-23 Blood pressure diastolic 74 mmHg 2018-04-23 MEDICATIONS Medication Instructions Dosage Frequency Start Date End Date Duration Status Gabapentin 800 MG Orally 3 times a day 1 tablet 8h 90 days Active [place] Carbonate 300 MG Orally 3 times a day 1 capsule 8h 30 days Active Tramadol HCl 50 mg Orally every 6 hrs 1 tablet as needed 6h March, Active Voltaren 1 % Transdermal 2 times a day apply 4gm as needed to lower back as needed 12h Nov, 30 days Active Atorvastatin Calcium 20 mg Orally Once a day 1 tablet 24h Apr, 30 day(s) Active Desvenlafaxine Succinate ER 100 MG Orally in morning 1 tablet Active Quetiapine Fumarate 300 MG Orally Once a day 1 tablet at bedtime 24h Active BusPIRone HCl 10 mg Orally Three times a day 2 tablets 8h Feb, Active Amitriptyline HCl 50 MG Orally Once a day at bedtime 1 tablet Feb, Active Seroquel 100 MG Orally Three times a day 1 tablet 8h Oct, Active Diclofenac Sodium 75 MG Orally Twice a day as needed 1 tablet with food or milk March, 30 day(s) Active RESULTS No Results [...] EGD Hospitalization History mental health issues x2 [facility] in [place] 2016 & 02/2017 Hospitalization History Surgery(s)/Childbirth(s)
--- OUTSIDE RECORDS SUMMARY | 2018-08-03 08:25 | XMS REPORT ---
Author Author RACHAEL CHEATHAM Organization [facility] Address [address] [place] [address] Care Team Providers Care Editor Magazine Name Role Phone RACHAEL CHEATHAM Unavailable PROBLEMS Type Condition ICD9-CM Code [id number] Code Onset Dates Condition Status SNOMED Code Problem Adjustment disorder with mixed anxiety and depressed mood F43.23 Active 27424355 Problem Bipolar 1 disorder F31.9 Active 035784960 Problem Schizo affective schizophrenia F25.0 Active 910992169 Problem Dysmenorrhea N94.6 Active 218754696 Problem Morbid obesity due to excess calories E66.01 Active 369062650 Problem Cannabis use disorder, mild, abuse F12.10 Active 73736013 Problem Sciatica, unspecified side M54.30 Active 68950182 Problem Other chronic pain G89.29 Active 69619499 Problem Lumbago with sciatica, right side M54.41 Active 071098073 Problem Anxiety F41.9 Active 23752981 Problem PTSD (post-traumatic stress disorder) F43.10 Active 32671306 Problem Borderline personality disorder F60.3 Active 40614626 Problem Severe episode of recurrent major depressive disorder, with psychotic features F33.3 Active 62233729 Problem Night terror F51.4 Active 37068036 Problem Mood disorder F39 Active 93472126 ALLERGIES No Information ENCOUNTERS Encounter Location Date Diagnosis [facility] [id number] [address] Jul, [facility] [id number] [address] Jul, [facility] [id number], [place] [address] 1034 Jul, [facility] [id number] [address] Jun, [facility] [id number] [place] [address] 55445- 1066 Jun, PTSD (post-traumatic stress disorder) F43.10 ; Mood disorder F39 ; Borderline personality disorder F60.3 and Cannabis use disorder, mild, abuse F12.10 [id number] [place] [address] 52793- 3098 Jun, [address] [id number] [place] [address] 10589- 1764 Jun, PTSD (post-traumatic stress disorder) F43.10 [place] [id number] [place] [address] 51352- 3553 Jun, Blodgett adverse reaction T43.595A and Sprain of anterior talofibular ligament of left ankle, initial encounter S93.492A [place] [id number] [place] [address] 19716- 6453 Jun, [place] 8[address]13- 3642 May, [facility] [id number] [place] [address] 36369- 9180 May, Skin tags, multiple acquired L91.8 ; Dysmenorrhea N94.6 and Acute non-recurrent maxillary sinusitis J01.00 [place] [id number] [place] [address] 16939- 0424 May, PTSD (post-traumatic stress disorder) F43.10 [place] [id number] [place] [address] 50444- 2831 May, 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 [address] 33422- 9874 May, PTSD (post-traumatic stress disorder) F43.10 ; Mood disorder F39 ; Borderline personality disorder F60.3 and Cannabis use disorder, mild, abuse F12.10 [place] [address] 17663- 4962 May, BMI 40.0-44.9, adult Z68.41 [place] [id number] [place] [address] 83901- 0338 18 Apr, 2018 BMI 40.0-44.9, adult Z68.41 [place] [id number] [place] [address] 55169- 6938 14 Apr, 2018 Acute non-recurrent maxillary sinusitis J01.00 [address] [address] 47642- 6198 11 Apr, 2018 PTSD (post-traumatic stress disorder) F43.10 ; Mood disorder F39 ; Borderline personality disorder F60.3 ; Cannabis use disorder, mild, abuse F12.10 and 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 [address] [id number] [place] [address] 53222- 4755 08 Apr, [address] 35267- 9349 07 Apr, 2018 Annual physical exam Z00.00 and High risk medication use Z79.[address] 41070- 1465 07 Apr, 2018 PTSD (post-traumatic stress disorder) F43.10 [place] [id number] [place] [address] 95152- 0892 Apr, [id number] [place] [address] 39056- 7752 March, BMI 40.0-44.9, adult Z68.41 ; Morbid obesity due to excess calories E66.01 ; Lumbago with sciatica, right side M54.41 and Other chronic pain G89.29 [address] [id number] [place] [address] 98616- 1138 March, PTSD (post-traumatic stress disorder) F43.10 [id number] [place] [address] 94275- 6092 March, PTSD (post-traumatic stress disorder) F43.10 ; Mood disorder F39 ; Borderline personality disorder F60.3 and Cannabis use disorder, mild, abuse F12.10 [address], [place] [address] 7[address] Feb, [facility] [address], [place] [address] 2446 Feb, [facility] [address] [id number] [address] Feb, Breast cancer screening Z12.31 [id number] [place] [address] 98047- 8783 Feb, Mood disorder F39 and PTSD (post-traumatic stress disorder) F43.10 [address], [place] [address]- 2366 Feb, PTSD (post-traumatic stress disorder) F43.10 ; Mood disorder F39 ; Borderline personality disorder F60.3 and Cannabis use disorder, mild, abuse F12.10 [facility] [address] [place] [address] 19958- 3657 Feb, Schizo affective schizophrenia F25.0 ; Adjustment disorder with mixed anxiety and depressed mood F43.23 ; Night terror F51.4 ; Anxiety F41.9 and Borderline personality disorder F60.3 [facility] [address], [place] [address]- 3286 Feb, [place] [id number] [place] [address] 99642- 0430 Feb, Mood disorder F39 [address] [place] [address] 17847- 1675 Feb, Annual physical exam Z00.00 ; BMI 40.0-44.9, adult Z68.41 and Nipple discharge N64.52 [place] [address] [place] [address] 53607- 8462 Jan, Schizo affective schizophrenia F25.0 ; Adjustment disorder with mixed anxiety and depressed mood F43.23 ; Night terror F51.4 ; Anxiety F41.9 and Borderline personality disorder F60.3 [address] [address] 61981- 3103 Jan, Mood disorder F39 ; PTSD (post-traumatic stress disorder) F43.10 ; Borderline personality disorder F60.3 and High risk medication use Z79.899 [address] [address] 85913- 3087 Dec, Anxiety F41.9 and Borderline personality disorder F60.3 [address] [address] 20317- 8899 Dec, [place] [address] 59261- 9572 Dec, Anxiety F41.9 and Borderline personality disorder F60.3 [place] [address] 95520- 3127 Dec, [place] [address] 97917- 0740 Dec, [place] [address] 44001- 6733 Nov, Acute non-recurrent maxillary sinusitis J01.00 ; Mood disorder F39 and Sciatica, unspecified side M54.30 [place] [address] 76015- 9348 Nov, Mood disorder F39 ; PTSD (post-traumatic stress disorder) F43.10 and Borderline personality disorder F60.3 [place] [address] 18166- 1145 Nov, Anxiety F41.9 and Borderline personality disorder F60.3 [place] [address] 53040- 3238 Nov, [place] [id number] [place] [address] 11692- 1218 Nov, Anxiety F41.9 and Sciatica, unspecified side M54.30 [facility] [id number] [place] [address] 09953- 1836 Oct, Anxiety F41.9 [facility] [id number] [place] [address] 34192- 9076 Oct, Mood disorder F39 ; PTSD (post-traumatic stress disorder) F43.10 ; Borderline personality disorder F60.3 and High risk medication use Z79.899 [facility] [id number] [place] [address] [id number] Oct, Dental caries K02.9 and Dental examination Z01.20 [facility] [id number] [place] [address] 01238- 1386 Sep, Dysuria R30.0 and Abdominal pain, right lower quadrant R10.31 [place] [id number] [place] [address] 82325- 8433 Aug, Mood disorder F39 ; PTSD (post-traumatic stress disorder) F43.10 and Borderline personality disorder F60.3 [facility] [id number] [place] [address] 69864- 6933 Aug, [facility] [id number] [place] [address] 31749- 6426 Aug, [facility] [id number] [place] [address] 33785- 6610 Aug, Severe episode of recurrent major depressive disorder, with psychotic features F33.3 ; PTSD (post-traumatic stress disorder) F43.10 ; Adjustment disorder with mixed anxiety and depressed mood F43.23 and Borderline personality disorder F60.3 [facility] [address] [place] [address] 25757- 2762 Aug, Mood disorder F39 ; PTSD (post-traumatic stress disorder) F43.10 and Borderline personality disorder F60.3 [facility] [address], [place] [address]- 0233 Aug, [facility] [id number] [place] [address] 74701- 0097 Aug, Bipolar 1 disorder F31.9 and Schizo affective schizophrenia F25.0 [facility] [id number] [place] [address] 35981- 1496 Aug, Mood disorder F39 [facility] [id number] [place] [address] 92780- 3075 Aug, Bipolar 1 disorder F31.9 and Schizo affective schizophrenia F25.0 [facility] [id number] [place] [address] 80796- 2250 Aug, Bipolar 1 disorder F31.9 and Schizo affective schizophrenia F25.0 [facility] [id number] [place] [address] 36603- 8595 Aug, [facility] [id number] [place] [address] 45275- 7732 Aug, PTSD (post-traumatic stress disorder) F43.10 and Borderline personality disorder F60.3 [facility] [address] [place] [address] 08126- 2513 Aug, [facility] [id number] [place] [address] 73801- 3091 Aug, Mood disorder F39 ; PTSD (post-traumatic stress disorder) F43.10 ; Borderline personality disorder F60.3 and Adjustment disorder with mixed anxiety and depressed mood F43.23 [facility] [id number] [place] [address] 29843- 6744 Jul, [facility] [id number] [place] [address] 68055- 5362 Jul, Mood disorder F39 ; PTSD (post-traumatic stress disorder) F43.10 and Borderline personality disorder F60.3 [facility] [id number] [address]- 2065 Jul, [id number] [place] [address] 16969- 9243 Jun, Anxiety F41.9 ; ADHD (attention deficit hyperactivity disorder) F90.9 ; Night terror F51.4 ; Bulimia F50.2 ; Severe episode of recurrent major depressive disorder, with psychotic features F33.3 and PTSD ( post-traumatic stress disorder) F43.10 [address] [id number] [place] [address] 32200- 9816 Jun, Borderline personality disorder F60.3 ; Mood disorder F39 and PTSD (post-traumatic stress disorder) F43.10 [id number] [place] [address] 90138- 3830 Jun, Anxiety F41.9 [id number] [place] [address] 46732- 0743 Jun, Anxiety F41.9 ; ADHD (attention deficit hyperactivity disorder) F90.9 ; Night terror F51.4 ; Bulimia F50.2 ; Severe episode of recurrent major depressive disorder, with psychotic features F33.3 and PTSD ( post-traumatic stress disorder) F43.10 [id number] [place] [address] 47100- 7583 Jun, ADHD (attention deficit hyperactivity disorder) F90.9 ; Night terror F51.4 ; Bulimia F50.2 ; Anxiety F41.9 ; Severe episode of recurrent major depressive disorder, with psychotic features F33.3 and PTSD ( post-traumatic stress disorder) F43.10 [address] [place] [place] [address] 04433- 4243 May, Anxiety F41.9 [id number] [place] [address] 97137- 4912 May, PTSD (post-traumatic stress disorder) F43.10 and Borderline personality disorder F60.3 [id number] [place] [address] 48640- 5148 Apr, [facility] [id number] [id number] March, Dental examination Z01.20 and Dental caries K02.9 [facility] [address], [place] [address]- 3673 March, Dental examination Z01.20 [facility] [id number] [place] [address] 81741- 8655 March, Tooth abscess K04.7 and Tooth pain K08.89 [facility] [address] [place] [address] 29491- 1879 March, Borderline personality disorder F60.3 [facility] [address], [place] [address]- 5076 March, ADHD (attention deficit hyperactivity disorder) F90.9 ; Night terror F51.4 ; Bulimia F50.2 and Anxiety F41.9 [facility] [address], [place] [address]- 7593 Feb, Borderline personality disorder F60.3 ; ADHD (attention deficit hyperactivity disorder) F90.9 ; Anxiety F41.9 ; Bulimia F50.2 ; Obsessive-compulsive disorder, unspecified type F42.9 and Night terror F51.4 [facility] [id number], [place] [address]- 7228 Feb, [facility] [address], [place] [address]- 5487 Feb, [facility] [address], [place] [address]- 3822 Jul, [facility] [address], [place] [address]- 2033 Jul, [facility] [address], [place] [address]- 7934 Jul, [facility] [address] [place] [address]- 6682 Jul, [facility] [address] [id number] [place] [address]- 1142 Jun, [facility] [place] [facility] [address] [id number] [place] [address]- 2508 Jun, [facility] [place] [facility] [address] [id number] [place] [address]- 2116 Jun, [facility] [place] [facility] [address] [id number] [place] [address]- 6338 Jun, [facility] [place] [facility] [address] [id number] [place] [address]- 7405 Apr, [facility] [place] [facility] [address] [id number] [place] [address]- 5391 Apr, [facility] [place] [facility] [address] [id number] [place] [address]- 2187 March, [facility] [place] [facility] [address] [id number] [place] [address]- 3552 March, [facility] [place] [facility] [address] [id number] [place] [address]- 5442 Jan, [facility] [place] [facility] [address] [id number] [place] [address]- 0380 Jan, [facility] [place] [facility] [address] [id number] [place] [address]- 6970 Jan, [facility] [place] [facility] [address] [id number] [place] 4174 Jan, [facility] [place] [facility] [address] [id number] [place] [address]- 4944 Jan, [facility] [place] [facility] [address] [id number] [place] [address]- 2892 Dec, [facility] [place] [facility] [address] [id number] [place] 6850 Dec, [facility] [place] [facility] [address] [id number] [place] [address]- 3491 Oct, [facility] [place] [facility] [address] [id number] [place]- 4432 Oct, [facility] [place] [facility] [address] [id number] [place] [address]- 2648 Oct, [facility] [place] [facility] [address] [id number] [place] [address]- 3875 Oct, [facility] [place] [facility] [address] [id number] [place] [address]- 2919 Sep, [facility] [place] [facility] [address] [id number] [place] [address]- 2800 Sep, [facility] [place] [facility] [address] [id number] [place] [address]- 8010 Sep, [facility] [place] [facility] [address] [id number], [place] [address]- 2668 Aug, [facility] [place] [facility] [address] [id number] [place] [address]- 4082 Aug, [facility] [place] [facility] [address] [id number], [place] [address]- 4312 Aug, [facility] [place] [facility] [address] [id number], [place] [address]- 7860 Aug, [facility] [place] [facility] [address] [id number], [place] [address]- 7918 Aug, [facility] [place] [facility] [address] [id number] [place] [address]- 0447 Aug, [facility] [place] [facility] [address] [id number], [place] [address]- 7065 Aug, [facility] [place] [facility] [address] [id number], [place] [address]- 5984 05 Jul, 2013 [facility] [place] [facility] [address] [id number] [place] [address]- 4690 Jun, [facility] [address] [id number] [place] [address]- 6945 Jun, [facility] [address] [id number] [place] [address]- 5357 Jun, [facility] [address] [id number] [place] [address]- 1996 Jun, [facility] [address] [id number] [place] [address]- 6836 Jun, [facility] [address] [id number] [place] [address]- 4172 Jun, [facility] [address] [id number] [place] [address]- 2824 May, [facility] [address] [id number] [place] [address]- 2744 May, [facility] [address] [id number] [place] [address]- 5687 May, [facility] [address] [id number] [place] [address]- 8190 May, [facility] [address] [id number] [place] [address]- 6638 March, [facility] [address] [id number] [place] [address]- 2083 March, [facility] [place] [facility] [address] [id number] [place] [address]- 9441 March, [facility] [place] [facility] [address] [id number] [place] [address]- 8604 Feb, [facility] [place] [facility] [address] [id number] [place] [address]- 7578 Feb, [facility] [place] [facility] [address] [id number] [place] [address]- 6932 Feb, [facility] [place] [facility] [address] [id number] [place] [address]- 2010 Feb, [facility] [place] [facility] [address] [id number] [place] [address]- 6986 Jan, [facility] [place] [facility] [address] [id number] [place] [address]- 6136 Jan, [facility] [place] [facility] [address] [id number] [place] [address]- 1436 Jan, [facility] [place] [facility] [address] [id number] [place] [address]- 6293 Dec, [facility] [place] [facility] [address] [id number] [place] [address]- 1148 Dec, [facility] [place] [facility] [address] [id number] [place] [address]- 4952 Dec, [facility] [place] [facility] [address] [id number] [place] [address]- 0663 Dec, [facility] [place] [facility] [address] [id number] [place] [address]- 1034 Dec, [facility] [place] [facility] [address] [id number] [place] [address]- 7644 Nov, [facility] [place] [facility] [address] [id number] [place] [address]- 9361 Nov, [facility] [place] [facility] [address] [id number] [place] [address]- 1964 Nov, [facility] [place] [facility] [address] [id number] [place] [address]- 8145 Nov, [facility] [place] [facility] [address] [id number] [place] [address]- 1946 Oct, [facility] [place] [facility] [address] [id number] [place] [address]- 7055 Oct, [facility] [place] [facility] [address] [id number] [place] [address]- 8619 Oct, [facility] [place] [facility] [address] [id number] [place] [address]- 7196 Oct, [facility] [place] [facility] [address] [id number] [place] [address]- 2136 Oct, [facility] [place] [facility] [address] [id number] [place] [address]- 9486 Oct, [facility] [place] [facility] [address] [id number] [place] [address]- 0896 Oct, [facility] [place] [facility] [address] [id number] [place] [address]- 3351 Oct, [facility] [place] [facility] [address] [id number] [place] [address]- 0866 Oct, [facility] [place] [facility] [address] [id number] [place] [address]- 4392 Oct, [facility] [place] [facility] [address] [id number] [place] [address]- 2762 Oct, [facility] [place] [facility] [address] [id number] [place] [address]- 4844 Oct, [facility] [place] [facility] [address] [id number] [place] [address]- 0180 Oct, [facility] [place] [facility] [address] [id number] [place] [address]- 3015 Sep, [facility] [place] [facility] [address] [id number] [place] [address]- 6893 Sep, [facility] [place] [facility] [address] [id number] [place] [address]- 1206 Sep, [facility] [place] [facility] [address] [id number] [place] [address] Sep, [facility] [place] [facility] [address] [facility] [id number] [place] [address] Sep, [facility] [place] [facility] [address] [id number] [place] [address] Sep, [facility] [place] [facility] [address] [id number] [place] [address] Sep, [facility] [place] [facility] [address] [id number] [place] [address] Sep, [facility] [place] [facility] [address] [id number] [place] [address] Sep, [facility] [place] [facility] [address] [id number] [place] [address] Sep, [facility] [place] [facility] [address] [id number] [place] [address] Sep, [facility] [place] [facility] [address] [id number] [place] [address] Sep, [facility] [place] [facility] [address] [id number] [place] [address]- [address] Aug, [facility] [place] [facility] [address] [id number] [place] [address]- [address] Aug, [facility] [place] [facility] [address] [id number] [place] [address] Aug, [facility] [place] [facility] [address] [id number] [place] [address]- [address] Aug, [facility] [place] [facility] [address] [id number] [place] [address]- [address] Aug, [facility] [place] [facility] [address] [id number] [place] [address]- [address] 14 Aug, 2012 [facility] [place] [facility] [address] [id number] [place] [address]- [address] Aug, [facility] [place] [facility] [address] [id number] [place] [address]- [address] Aug, [facility] [place] [facility] [address] [id number] [place] [address]- [address] Aug, [facility] [place] [facility] [address] [id number] [place] [address]- [address] 08 Aug, 2012 [facility] [place] [facility] [address] [id number] [place] [address]- [address] Aug, [facility] [place] [facility] [address] [id number] [place] [address] Aug, [facility] [place] [facility] [address] [id number] [place] [address]- [address] 28 Jul, 2012 [facility] [place] [facility] [address] [id number] [place] [address] 27 Jul, 2012 [facility] [place] [facility] [address] [id number] [place] [address] 21 Jul, 2012 [facility] [place] [facility] [address] [id number] [place] [address]- [address] Jul, [facility] [place] [facility] [address] [id number] [place] [address]- [address] 05 Jul, 2012 [facility] [place] [facility] [address] [id number] [place] [address] Jul, [facility] [place] [facility] [address] [id number] [place] [address] Jun, [facility] [place] [facility] [address] [id number] [place] [address]- [address] Jun, [facility] [place] [facility] [address] [id number], [place] [address] Jun, [facility] [place] [facility] [address] [address] [id number] [place] [address] May, [facility] [place] [facility] [address] [id number] [place] [address] May, [facility] [place] [facility] [address] [id number] [place] [address] May, [facility] [place] [facility] [address] [id number] [place] [address] 09 May, 2012 [facility] [place] [facility] [address] [id number] [place] [address] 06 May, 2012 [facility] [place] [facility] [address] [id number] [place] [address] 05 May, 2012 [facility] [place] [facility] [address] [id number] [place] [address] 30 Apr, 2012 [facility] [place] [facility] [address] [id number] [place] [address] 23 Feb, 2012 [facility] [place] [facility] [address] [id number] [place] [address] 87[address] 18 Feb, 2012 [facility] [place] [facility] [address] [id number] [place] [address] 11 Feb, 2012 [facility] [place] [facility] [address] [id number] [place] [address] 39[address] 10 Feb, 2012 [facility] [place] [facility] [address] [facility] [id number] [place] [address] 16 Jan, 2012 [facility] [place] [facility] [address] [id number] [place] [address] 3364 12 Jan, 2012 [facility] [place] [facility] [address] [facility] [id number] [place] [address] 48[address] 29 Dec, 2011 [facility] [place] [facility] [address] [facility] [id number] [place] [address] 35[address] 28 Dec, 2011 [facility] [place] [facility] [address] [facility] [id number] [place] [address] 21 Dec, 2011 [facility] [place] [facility] [address] [id number] [place] [address] 4615 14 Dec, 2011 [facility] [place] [facility] [address] [facility] [id number] [place] [address] 9495 14 Dec, 2011 [facility] [place] [facility] [address] [facility] [id number] [place] [address] 4087 13 Dec, 2011 [facility] [address] [id number] [place] [address]687 09 Dec, 2011 [facility] [place] [facility] [address] [id number] [place] [address]96 Dec, [facility] [address] [id number] [place] [address] 35[address] Dec, [facility] [address] [id number] [place] [address] 65[address] Nov, [facility] [address] [id number] [place] [address] Nov, [facility] [address] [id number] [place] [address] 7006 Nov, [facility] [address] [id number] [place] [address] 8036 Nov, [facility] [address] [id number] [place] [address] 69[address] Nov, [facility] [address] [id number] [place] [address] 7027 Nov, [facility] [address] [facility] [id number] [place] [address] Nov, [facility] [address] [id number], [place] [address] Nov, [facility] [place] [facility] [address] [id number], [place] [address] Nov, [facility] [place] [facility] [address] [id number] [place] [address] 1616 Oct, [facility] [place] [facility] [address] [id number], [place] [address] Oct, [facility] [place] [facility] [address] [facility] [id number] [place] [address]166 Oct, [facility] [place] [facility] [address] [id number] [place] [address] 0289 05 Oct, 2011 [facility] [address] [id number] [place] [address]- 2531 05 Oct, 2011 [facility] [place] [facility] [address] [id number] [place] [address] 4634 Oct, [facility] [place] [facility] [address] [id number] [place] [address] 2926 Sep, [facility] [place] [facility] [address] [id number] [place] [address] Aug, [facility] [place] [facility] [address] [id number] [place] [address] 8427 Jul, [facility] [place] [facility] [address] [id number] [place] [address] 99[address] Nov, [facility] [place] [facility] [address] [id number] [place] [address] 4[address] Nov, [facility] [place] [facility] [address] [id number] [place] [address]- 0610 Oct, [facility] [place] [facility] [address] [id number] [place] [address] Sep, [facility] [place] [facility] [address] [facility] [id number] [place] [address]- 5194 Sep, [facility] [place] [facility] [address] [id number] [place] [address]- 8991 18 Aug, 2010 [facility] [place] [facility] [address] [id number] [place] [address]- 5301 14 Aug, 2010 [facility] [place] [facility] [address] [id number] [place] [address]- 5203 14 Aug, 2010 [facility] [place] [facility] [address] [id number] [place] [address]- 3011 13 Feb, 2010 [facility] [place] [facility] [address] [id number], [place] [address] 10 Dec, 2009 [facility] [address] [id number], [place] [address] Oct, [facility] [id number] [address] [address] Oct, [facility] [id number] [address] Oct, [facility] [id number] [place] [address] Sep, [facility] [id number] [place] [address]- [address] Sep, [facility] [id number] [place] [address]31- [address] Sep, [facility] [id number], [place] [address] Aug, [facility] [id number], [place] [address] Aug, IMMUNIZATIONS No Known Immunizations SOCIAL HISTORY Never Assessed REASON FOR VISIT eye exam PLAN OF CARE VITAL SIGNS MEDICATIONS Unknown [...] EGD Hospitalization History mental health issues x2 [facility] [place] 2016 & 02/2017 Hospitalization History Surgery(s)/Childbirth(s)
--- OUTSIDE RECORDS SUMMARY | 2018-08-03 08:25 | XMS REPORT ---
Author Author RACHAEL CHEATHAM Organization [facility] Address [address] [place] [address] Care Team Providers Care Kettle Worker Name Role Phone RACHAEL CHEATHAM Unavailable PROBLEMS Type Condition ICD9-CM Code JDT02-BM Code Onset Dates Condition Status SNOMED Code Problem Adjustment disorder with mixed anxiety and depressed mood F43.23 Active 02003268 Problem Bipolar 1 disorder F31.9 Active 662966823 Problem Schizo affective schizophrenia F25.0 Active 911381606 Problem Dysmenorrhea N94.6 Active 611742168 Problem Morbid obesity due to excess calories E66.01 Active 667592308 Problem Cannabis use disorder, mild, abuse F12.10 Active 77470487 Problem Sciatica, unspecified side M54.30 Active 27651453 Problem Other chronic pain G89.29 Active 87095573 Problem Lumbago with sciatica, right side M54.41 Active 394113030 Problem Anxiety F41.9 Active 47293438 Problem PTSD (post-traumatic stress disorder) F43.10 Active 56624777 Problem Borderline personality disorder F60.3 Active 29705756 Problem Severe episode of recurrent major depressive disorder, with psychotic features F33.3 Active 90571810 Problem Night terror F51.4 Active 99526960 Problem Mood disorder F39 Active 89357773 ALLERGIES No Information ENCOUNTERS Encounter Location Date Diagnosis [facility] [address] [id number], [place] [address] Jul, [facility] [address] [id number], [place] [address] 25[address] Jul, [facility] [address] [id number], [place] [address] 82[address] Jul, [facility] [address] [id number], [place] [address] 8[address] Jun, [facility] [id number] [place] [address] 03548- 4759 Jun, PTSD (post-traumatic stress disorder) F43.10 ; Mood disorder F39 ; Borderline personality disorder F60.3 and Cannabis use disorder, mild, abuse F12.10 [facility] [facility] [id number] [place] [address] 92874- 7064 Jun, [facility] [id number] [place] [address] 81053- 3276 Jun, PTSD (post-traumatic stress disorder) F43.10 [facility] [id number] [place] [address] 15048- 9908 Jun, [place] adverse reaction T43.595A and Sprain of anterior talofibular ligament of left ankle, initial encounter S93.492A [facility] [id number] [place] [address] 00087- 1600 Jun, [place] [address] 7[address]13- 1085 May, [facility] [id number] [place] [address] 78459- 7995 May, Skin tags, multiple acquired L91.8 ; Dysmenorrhea N94.6 and Acute non-recurrent maxillary sinusitis J01.00 [place] [id number] [place] [address] 60579- 6153 May, PTSD (post-traumatic stress disorder) F43.10 [place] [id number] [place] [address] 39394- 1445 May, Other fci (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 [place] [address] 85146- 3447 May, PTSD (post-traumatic stress disorder) F43.10 ; Mood disorder F39 ; Borderline personality disorder F60.3 and Cannabis use disorder, mild, abuse F12.10 [place] [address] 60867- 5647 May, BMI 40.0-44.9, adult Z68.41 [facility] [id number] [place] [address] 04010- 2444 18 Apr, 2018 BMI 40.0-44.9, adult Z68.41 [facility] [place] [id number] [place] [address] 41960- 3013 14 Apr, 2018 Acute non-recurrent maxillary sinusitis J01.00 [place] [address] 36179- 8299 11 Apr, 2018 PTSD (post-traumatic stress disorder) F43.10 ; Mood disorder F39 ; Borderline personality disorder F60.3 ; Cannabis use disorder, mild, abuse F12.10 and 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 [facility] [id number] [place] [address] 55325- 8809 08 Apr, [address] 06164- 6119 07 Apr, 2018 Annual physical exam Z00.00 and High risk medication use Z79.[address] 56364- 6890 07 Apr, 2018 PTSD (post-traumatic stress disorder) F43.10 [facility] [id number] [place] [address] 70522- 6535 Apr, [id number] [place] [address] 99243- 9106 March, BMI 40.0-44.9, adult Z68.41 ; Morbid obesity due to excess calories E66.01 ; Lumbago with sciatica, right side M54.41 and Other chronic pain G89.29 [place] [id number] [place] [address] 55621- 8901 March, PTSD (post-traumatic stress disorder) F43.10 [id number] [place] [address] 13068- 8404 March, PTSD (post-traumatic stress disorder) F43.10 ; Mood disorder F39 ; Borderline personality disorder F60.3 and Cannabis use disorder, mild, abuse F12.10 [place] [address], [place] [address] 27[address] Feb, [facility] [address], [place] [address] 4332 Feb, [facility] [address] [id number] [address] Feb, Breast cancer screening Z12.31 [place] [address] [place] [address] 01709- 2319 Feb, Mood disorder F39 and PTSD (post-traumatic stress disorder) F43.10 [place] [address], [place] [address]- 4672 Feb, PTSD (post-traumatic stress disorder) F43.10 ; Mood disorder F39 ; Borderline personality disorder F60.3 and Cannabis use disorder, mild, abuse F12.10 [facility] [address] [place] [address] 78626- 0250 Feb, Schizo affective schizophrenia F25.0 ; Adjustment disorder with mixed anxiety and depressed mood F43.23 ; Night terror F51.4 ; Anxiety F41.9 and Borderline personality disorder F60.3 [facility] [address], [place] [address]- 0412 Feb, [place] [address] [place] [address] 85791- 3802 Feb, Mood disorder F39 [place] [address] [place] [address] 05088- 5085 Feb, Annual physical exam Z00.00 ; BMI 40.0-44.9, adult Z68.41 and Nipple discharge N64.52 [place] [address] [place] [address] 39119- 9169 Jan, Schizo affective schizophrenia F25.0 ; Adjustment disorder with mixed anxiety and depressed mood F43.23 ; Night terror F51.4 ; Anxiety F41.9 and Borderline personality disorder F60.3 [place] [address] 05387- 6684 Jan, Mood disorder F39 ; PTSD (post-traumatic stress disorder) F43.10 ; Borderline personality disorder F60.3 and High risk medication use Z79.899 [place] [address] 47371- 6106 Dec, Anxiety F41.9 and Borderline personality disorder F60.3 [place] [address] 73128- 1555 Dec, [place] [address] 24138- 3023 Dec, Anxiety F41.9 and Borderline personality disorder F60.3 [place] [address] 24527- 4501 Dec, [place] [address] 48217- 4566 Dec, [place] [address] 03241- 3682 Nov, Acute non-recurrent maxillary sinusitis J01.00 ; Mood disorder F39 and Sciatica, unspecified side M54.30 [place] [address] 82983- 4637 Nov, Mood disorder F39 ; PTSD (post-traumatic stress disorder) F43.10 and Borderline personality disorder F60.3 [place] [address] 59840- 9472 Nov, Anxiety F41.9 and Borderline personality disorder F60.3 [place] [address] 09841- 1222 Nov, [place] [id number] [place] [address] 30572- 5358 Nov, Anxiety F41.9 and Sciatica, unspecified side M54.30 [facility] [id number] [place] [address] 20110- 1246 Oct, Anxiety F41.9 [facility] [id number] [place] [address] 73250- 3926 Oct, Mood disorder F39 ; PTSD (post-traumatic stress disorder) F43.10 ; Borderline personality disorder F60.3 and High risk medication use Z79.899 [facility] [id number] [place] [address] [id number] Oct, Dental caries K02.9 and Dental examination Z01.20 [facility] [id number] [place] [address] 54571- 2412 Sep, Dysuria R30.0 and Abdominal pain, right lower quadrant R10.31 [place] [id number] [place] [address] 83295- 8854 Aug, Mood disorder F39 ; PTSD (post-traumatic stress disorder) F43.10 and Borderline personality disorder F60.3 [facility] [id number] [place] [address] 75023- 7424 Aug, [facility] [id number] [place] [address] 05482- 5712 Aug, [facility] [id number] [place] [address] 21566- 3632 Aug, Severe episode of recurrent major depressive disorder, with psychotic features F33.3 ; PTSD (post-traumatic stress disorder) F43.10 ; Adjustment disorder with mixed anxiety and depressed mood F43.23 and Borderline personality disorder F60.3 [facility] [address] [place] [address] 91392- 2286 Aug, Mood disorder F39 ; PTSD (post-traumatic stress disorder) F43.10 and Borderline personality disorder F60.3 [facility] [address], [place] [address]- 7383 Aug, [facility] [id number] [place] [address] 98696- 8817 Aug, Bipolar 1 disorder F31.9 and Schizo affective schizophrenia F25.0 [facility] [id number] [place] [address] 24877- 4316 Aug, Mood disorder F39 [facility] [id number] [place] [address] 76972- 0141 Aug, Bipolar 1 disorder F31.9 and Schizo affective schizophrenia F25.0 [facility] [id number] [place] [address] 31454- 7298 Aug, Bipolar 1 disorder F31.9 and Schizo affective schizophrenia F25.0 [facility] [id number] [place] [address] 54006- 4819 Aug, [facility] [id number] [place] [address] 31023- 5929 Aug, PTSD (post-traumatic stress disorder) F43.10 and Borderline personality disorder F60.3 [facility] [address] [place] [address] 85431- 0487 Aug, [facility] [address] [place] [address] 24497- 1263 Aug, Mood disorder F39 ; PTSD (post-traumatic stress disorder) F43.10 ; Borderline personality disorder F60.3 and Adjustment disorder with mixed anxiety and depressed mood F43.23 [facility] [address] [place] [address] 12428- 1162 Jul, [facility] [id number] [place] [address] 01585- 5901 Jul, Mood disorder F39 ; PTSD (post-traumatic stress disorder) F43.10 and Borderline personality disorder F60.3 [facility] [id number] [address]- 8693 Jul, [place] [id number] [place] [address] 54785- 0467 Jun, Anxiety F41.9 ; ADHD (attention deficit hyperactivity disorder) F90.9 ; Night terror F51.4 ; Bulimia F50.2 ; Severe episode of recurrent major depressive disorder, with psychotic features F33.3 and PTSD ( post-traumatic stress disorder) F43.10 [place] [id number] [place] [address] 21552- 5132 Jun, Borderline personality disorder F60.3 ; Mood disorder F39 and PTSD (post-traumatic stress disorder) F43.10 [place] [id number] [place] [address] 86149- 2345 Jun, Anxiety F41.9 [place] [id number] [place] [address] 86495- 4734 Jun, Anxiety F41.9 ; ADHD (attention deficit hyperactivity disorder) F90.9 ; Night terror F51.4 ; Bulimia F50.2 ; Severe episode of recurrent major depressive disorder, with psychotic features F33.3 and PTSD ( post-traumatic stress disorder) F43.10 [place] [address] [place] [address] 68039- 0651 Jun, ADHD (attention deficit hyperactivity disorder) F90.9 ; Night terror F51.4 ; Bulimia F50.2 ; Anxiety F41.9 ; Severe episode of recurrent major depressive disorder, with psychotic features F33.3 and PTSD ( post-traumatic stress disorder) F43.10 [place] [address] [place] [address] 29131- 1115 May, Anxiety F41.9 [place] [id number] [place] [address] 38054- 0205 May, PTSD (post-traumatic stress disorder) F43.10 and Borderline personality disorder F60.3 [place] [id number] [place] [address] 48600- 1573 Apr, [facility] [id number] [id number] March, Dental examination Z01.20 and Dental caries K02.9 [facility] [address], [place] [address]- 6950 March, Dental examination Z01.20 [facility] [id number] [place] [address] 01711- 6718 March, Tooth abscess K04.7 and Tooth pain K08.89 [facility] [address] [place] [address] 30402- 8042 March, Borderline personality disorder F60.3 [facility] [address], [place] [address]- 6097 March, ADHD (attention deficit hyperactivity disorder) F90.9 ; Night terror F51.4 ; Bulimia F50.2 and Anxiety F41.9 [facility] [address], [place] [address]- 4725 Feb, Borderline personality disorder F60.3 ; ADHD (attention deficit hyperactivity disorder) F90.9 ; Anxiety F41.9 ; Bulimia F50.2 ; Obsessive-compulsive disorder, unspecified type F42.9 and Night terror F51.4 [facility] [id number], [place] [address]- 1770 Feb, [facility] [address], [place] [address]- 9379 Feb, [facility] [address], [place] [address]- 4170 Jul, [facility] [address], [place] [address]- 8688 Jul, [facility] [address], [place] [address]- 4581 Jul, [facility] [address] [place] [address]- 4051 Jul, [facility] [address] [id number] [place] [address]- 4250 Jun, [facility] [place] [facility] [address] [id number] [place] [address]- 0078 Jun, [facility] [place] [facility] [address] [id number] [place] [address]- 8814 Jun, [facility] [place] [facility] [address] [id number] [place] [address]- 9739 Jun, [facility] [place] [facility] [address] [id number] [place] [address]- 0738 Apr, [facility] [place] [facility] [address] [id number] [place] [address]- 2241 Apr, [facility] [place] [facility] [address] [id number] [place] [address]- 7017 March, [facility] [place] [facility] [address] [id number] [place] [address]- 2131 March, [facility] [place] [facility] [address] [id number] [place] [address]- 0620 Jan, [facility] [place] [facility] [address] [id number] [place] [address]- 5378 Jan, [facility] [place] [facility] [address] [id number] [place] [address]- 1189 Jan, [facility] [place] [facility] [address] [id number] [place] 5173 Jan, [facility] [place] [facility] [address] [id number] [place] [address]- 6043 Jan, [facility] [place] [facility] [address] [id number] [place] [address]- 2756 Dec, [facility] [place] [facility] [address] [id number] [place] 3425 Dec, [facility] [place] [facility] [address] [id number] [place] [address]- 5250 Oct, [facility] [place] [facility] [address] [id number] [place] 2226 Oct, [facility] [place] [facility] [address] [id number] [place] [address]- 9963 Oct, [facility] [place] [facility] [address] [id number] [place] [address]- 4941 Oct, [facility] [place] [facility] [address] [id number] [place] [address]- 3976 Sep, [facility] [place] [facility] [address] [id number] [place] [address]- 5081 Sep, [facility] [place] [facility] [address] [id number] [place] [address]- 4662 Sep, [facility] [place] [facility] [address] [id number], [place] [address]- 8457 Aug, [facility] [place] [facility] [address] [id number] [place] [address]- 8743 Aug, [facility] [place] [facility] [address] [id number], [place] [address]- 6001 Aug, [facility] [place] [facility] [address] [id number], [place] [address]- 4551 Aug, [facility] [place] [facility] [address] [id number], [place] [address]- 2853 Aug, [facility] [place] [facility] [address] [id number] [place] [address]- 6998 Aug, [facility] [place] [facility] [address] [id number], [place] [address]- 2036 Aug, [facility] [place] [facility] [address] [id number], [place] [address]- 5329 05 Jul, 2013 [facility] [place] [facility] [address] [id number] [place] [address]- 5463 Jun, [facility] [address] [id number] [place] [address]- 0155 Jun, [facility] [address] [id number] [place] [address]- 6618 Jun, [facility] [address] [id number] [place] [address]- 9339 Jun, [facility] [address] [id number] [place] [address]- 6917 Jun, [facility] [address] [id number] [place] [address]- 5954 Jun, [facility] [address] [id number] [place] [address]- 5393 May, [facility] [address] [id number] [place] [address]- 6074 May, [facility] [address] [id number] [place] [address]- 4837 May, [facility] [address] [id number] [place] [address]- 0418 May, [facility] [address] [id number] [place] [address]- 9289 March, [facility] [address] [id number] [place] [address]- 4478 March, [facility] [place] [facility] [address] [id number] [place] [address]- 3346 March, [facility] [place] [facility] [address] [id number] [place] [address]- 0892 Feb, [facility] [place] [facility] [address] [id number] [place] [address]- 1470 Feb, [facility] [place] [facility] [address] [id number] [place] [address]- 0589 Feb, [facility] [place] [facility] [address] [id number] [place] [address]- 9857 Feb, [facility] [place] [facility] [address] [id number] [place] [address]- 6634 Jan, [facility] [place] [facility] [address] [id number] [place] [address]- 4079 Jan, [facility] [place] [facility] [address] [id number] [place] [address]- 3323 Jan, [facility] [place] [facility] [address] [id number] [place] [address]- 1600 Dec, [facility] [place] [facility] [address] [id number] [place] [address]- 1891 Dec, [facility] [place] [facility] [address] [id number] [place] [address]- 9270 Dec, [facility] [place] [facility] [address] [id number] [place] [address]- 8040 Dec, [facility] [place] [facility] [address] [id number] [place] [address]- 2206 Dec, [facility] [place] [facility] [address] [id number] [place] [address]- 3745 Nov, [facility] [place] [facility] [address] [id number] [place] [address]- 3814 Nov, [facility] [place] [facility] [address] [id number] [place] [address]- 0559 Nov, [facility] [place] [facility] [address] [id number] [place] [address]- 4382 Nov, [facility] [place] [facility] [address] [id number] [place] [address]- 8686 Oct, [facility] [place] [facility] [address] [id number] [place] [address]- 0759 Oct, [facility] [place] [facility] [address] [id number] [place] [address]- 6110 Oct, [facility] [place] [facility] [address] [id number] [place] [address]- 7666 Oct, [facility] [place] [facility] [address] [id number] [place] [address]- 5076 Oct, [facility] [place] [facility] [address] [id number] [place] [address]- 6986 Oct, [facility] [place] [facility] [address] [id number] [place] [address]- 8246 Oct, [facility] [place] [facility] [address] [id number] [place] [address]- 9234 Oct, [facility] [place] [facility] [address] [id number] [place] [address]- 1516 Oct, [facility] [place] [facility] [address] [id number] [place] [address]- 8486 Oct, [facility] [place] [facility] [address] [id number] [place] [address]- 2630 Oct, [facility] [place] [facility] [address] [id number] [place] [address]- 4549 Oct, [facility] [place] [facility] [address] [id number] [place] [address]- 1057 Oct, [facility] [place] [facility] [address] [id number] [place] [address]- 6539 Sep, [facility] [place] [facility] [address] [id number] [place] [address]- 3468 Sep, [facility] [place] [facility] [address] [id number] [place] [address] Sep, [facility] [place] [facility] [address] [id number] [place] [address] Sep, [facility] [place] [facility] [address] [facility] [id number] [place] [address] Sep, [facility] [place] [facility] [address] [id number] [place] [address] Sep, [facility] [place] [facility] [address] [id number] [place] [address] Sep, [facility] [place] [facility] [address] [id number] [place] [address] Sep, [facility] [place] [facility] [address] [id number] [place] [address] Sep, [facility] [place] [facility] [address] [id number] [place] [address] Sep, [facility] [place] [facility] [address] [id number] [place] [address] Sep, [facility] [place] [facility] [address] [id number] [place] [address] Sep, [facility] [place] [facility] [address] [id number] [place] [address] Aug, [facility] [place] [facility] [address] [id number] [place] [address] Aug, [facility] [place] [facility] [address] [id number] [place] [address] Aug, [facility] [place] [facility] [address] [id number] [place] [address] Aug, [facility] [place] [facility] [address] [id number] [place] [address] Aug, [facility] [place] [facility] [address] [id number] [place] [address] 14 Aug, 2012 [facility] [place] [facility] [address] [id number] [place] [address] Aug, [facility] [place] [facility] [address] [id number] [place] [address] Aug, [facility] [place] [facility] [address] [id number] [place] [address] Aug, [facility] [place] [facility] [address] [id number] [place] [address]- [address] 08 Aug, 2012 [facility] [place] [facility] [address] [id number] [place] [address] Aug, [facility] [place] [facility] [address] [id number] [place] [address] Aug, [facility] [place] [facility] [address] [id number] [place] [address] 28 Jul, 2012 [facility] [place] [facility] [address] [id number] [place] [address] 27 Jul, 2012 [facility] [place] [facility] [address] [id number] [place] [address] 21 Jul, 2012 [facility] [place] [facility] [address] [id number] [place] [address] Jul, [facility] [place] [facility] [address] [id number] [place] [address] 05 Jul, 2012 [facility] [place] [facility] [address] [id number] [place] [address] Jul, [facility] [place] [facility] [address] [id number] [place] [address] Jun, [facility] [place] [facility] [address] [id number] [place] [address] Jun, [facility] [place] [facility] [address] [id number], [place] [address] Jun, [facility] [place] [facility] [address] [id number] [place] [address] May, [facility] [place] [facility] [address] [id number] [place] [address] May, [facility] [place] [facility] [address] [id number] [place] [address] May, [facility] [place] [facility] [address] [id number] [place] [address] 09 May, 2012 [facility] [place] [facility] [address] [id number] [place] [address] 06 May, 2012 [facility] [place] [facility] [address] [id number] [place] [address] 05 May, 2012 [facility] [place] [facility] [address] [id number] [place] [address] 30 Apr, 2012 [facility] [place] [facility] [address] [id number] [place] [address] 23 Feb, 2012 [facility] [place] [facility] [address] [id number] [place] [address] 18 Feb, 2012 [facility] [place] [facility] [address] [id number] [place] [address] 11 Feb, 2012 [facility] [place] [facility] [address] [id number] [place] [address] 27[address] 10 Feb, 2012 [facility] [place] [facility] [address] [facility] [id number] [place] [address] 16 Jan, 2012 [facility] [place] [facility] [address] [id number] [place] [address] 8459 12 Jan, 2012 [facility] [place] [facility] [address] [facility] [id number] [place] [address] 7972 29 Dec, 2011 [facility] [place] [facility] [address] [facility] [id number] [place] [address] 56[address] 28 Dec, 2011 [facility] [place] [facility] [address] [facility] [id number] [place] [address] 6857 21 Dec, 2011 [facility] [place] [facility] [address] [id number] [place] [address] 2078 14 Dec, 2011 [facility] [place] [facility] [address] [facility] [id number] [place] [address] 1864 14 Dec, 2011 [facility] [place] [facility] [address] [facility] [id number] [place] [address] 3473 13 Dec, 2011 [facility] [address] [id number] [place] [address] 69[address] 09 Dec, 2011 [facility] [place] [facility] [address] [id number] [place] [address] 9736 Dec, [facility] [address] [id number] [place] [address] 6546 Dec, [facility] [address] [id number] [place] [address] 9116 Nov, [facility] [address] [id number] [place] [address] 5958 Nov, [facility] [address] [id number] [place] [address] 2446 Nov, [facility] [address] [id number] [place] [address] 5046 Nov, [facility] [address] [id number] [place] [address]- 5774 Nov, [facility] [address] [id number] [place] [address] 5321 Nov, [facility] [address] [facility] [id number] [place] [address] 2681 Nov, [facility] [address] [id number], [place] [address] Nov, [facility] [place] [facility] [address] [id number], [place] [address] Nov, [facility] [place] [facility] [address] [id number] [place] [address] 3126 Oct, [facility] [place] [facility] [address] [id number], [place] [address] Oct, [facility] [place] [facility] [address] [facility] [id number] [place] [address] 2446 Oct, [facility] [place] [facility] [address] [id number] [place] [address]- 0529 05 Oct, 2011 [facility] [address] [id number] [place] [address] 3811 05 Oct, 2011 [facility] [place] [facility] [address] [id number] [place] [address] 8169 Oct, [facility] [place] [facility] [address] [id number] [place] [address] 5046 Sep, [facility] [place] [facility] [address] [id number] [place] [address] 8975 Aug, [facility] [place] [facility] [address] [id number] [place] [address] 7800 Jul, [facility] [place] [facility] [address] [id number] [place] [address]56 Nov, [facility] [place] [facility] [address] [id number] [place] [address] 8079 Nov, [facility] [place] [facility] [address] [id number] [place] [address]- 5851 Oct, [facility] [place] [facility] [address] [id number] [place] [address] 5559 Sep, [facility] [place] [facility] [address] [facility] [id number] [place] [address]- 6582 Sep, [facility] [place] [facility] [address] [id number] [place] [address]- 6740 18 Aug, 2010 [facility] [place] [facility] [address] [id number] [place] [address]- 7799 14 Aug, 2010 [facility] [place] [facility] [address] [id number] [place] [address] 3476 14 Aug, 2010 [facility] [place] [facility] [address] [id number] [place] [address]- 6639 13 Feb, 2010 [facility] [place] [facility] [address] [id number], [place] [address] 10 Dec, 2009 [facility] [address] [id number], [place] [address] Oct, [facility] [id number], [place] [address] Oct, [facility] [id number], [place] [address] Oct, [facility] [id number] [place] [address] Sep, [facility] [id number] [place] [address]- [address]89 Sep, [facility] [id number] [place] [address] Sep, [facility] [id number], [place] [address] Aug, [facility] [id number], [place] [address] Aug, IMMUNIZATIONS No Known Immunizations SOCIAL HISTORY Never Assessed REASON FOR VISIT Requests return call PLAN OF CARE VITAL SIGNS MEDICATIONS Medication Instructions Dosage Frequency Start Date End Date Duration Status Gabapentin 800 MG Orally 3 times a day 1 tablet 8h Active RESULTS No Results PROCEDURES No Known [...] mental health issues x2 Ward Unit in [place] 2016 & 02/2017 Hospitalization History Surgery(s)/Childbirth(s)
--- OUTSIDE RECORDS SUMMARY | 2018-08-03 08:26 | XMS REPORT ---
Author Author RACHAEL CHEATHAM Organization [facility] Address [address] [place] [address] Care Team Providers Care Extrusion Die Template Maker Name Role Phone RACHAEL CHEATHAM Unavailable PROBLEMS Type Condition ICD9-CM Code [id number] Code Onset Dates Condition Status SNOMED Code Problem Adjustment disorder with mixed anxiety and depressed mood F43.23 Active 59292257 Problem Bipolar 1 disorder F31.9 Active 642859475 Problem Schizo affective schizophrenia F25.0 Active 909859661 Problem Dysmenorrhea N94.6 Active 061690208 Problem Morbid obesity due to excess calories E66.01 Active 599507077 Problem Cannabis use disorder, mild, abuse F12.10 Active 20965369 Problem Sciatica, unspecified side M54.30 Active 93668262 Problem Other chronic pain G89.29 Active 97776186 Problem Lumbago with sciatica, right side M54.41 Active 131566646 Problem Anxiety F41.9 Active 03521501 Problem PTSD (post-traumatic stress disorder) F43.10 Active 90868261 Problem Borderline personality disorder F60.3 Active 74049651 Problem Severe episode of recurrent major depressive disorder, with psychotic features F33.3 Active 77397360 Problem Night terror F51.4 Active 58786595 Problem Mood disorder F39 Active 68866065 ALLERGIES No Information ENCOUNTERS Encounter Location Date Diagnosis [facility] [id number] [address] Jul, [facility] [id number] [address] Jul, [facility] [id number] [address] Jun, [facility] [id number] [address] Jun, PTSD (post-traumatic stress disorder) F43.10 ; Mood disorder F39 ; Borderline personality disorder F60.3 and Cannabis use disorder, mild, abuse F12.10 [facility] [id number] [place] [address] 81713- 5783 Jun, [facility] [id number] [place] [address] 82338- 5306 Jun, PTSD (post-traumatic stress disorder) F43.10 [address] [address]- [address] Jun, [place] adverse reaction T43.595A and Sprain of anterior talofibular ligament of left ankle, initial encounter S93.492A [place] [id number] [place] [address] 27560- 6762 Jun, [address] [address] 44747- 8720 May, [place] [address] 89663- 0057 May, Skin tags, multiple acquired L91.8 ; Dysmenorrhea N94.6 and Acute non-recurrent maxillary sinusitis J01.00 [place] [id number] [place] [address] 91637- 0171 May, PTSD (post-traumatic stress disorder) F43.10 [place] [id number] [place] [address] 02377- 9146 May, Other skilled nursing (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 [place] [id number] [place] [address] 77012- 1125 May, PTSD (post-traumatic stress disorder) F43.10 ; Mood disorder F39 ; Borderline personality disorder F60.3 and Cannabis use disorder, mild, abuse F12.10 [address] [id number] [place] [address] 15841- 4247 May, BMI 40.0-44.9, adult Z68.41 [place] [id number] [place] [address] 29736- 1516 18 Apr, 2018 BMI 40.0-44.9, adult Z68.41 [place] [id number] [place] [address] 12135- 3767 14 Apr, 2018 Acute non-recurrent maxillary sinusitis J01.00 [place] [id number] [place] [address] 31035- 1229 11 Apr, 2018 PTSD (post-traumatic stress disorder) F43.10 ; Mood disorder F39 ; Borderline personality disorder F60.3 ; Cannabis use disorder, mild, abuse F12.10 and Other watermaster (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 [place] [id number] [place] [address] 50243- 0229 08 Apr, 2018 [place] [id number] [place] [address] 07413- 1195 07 Apr, 2018 Annual physical exam Z00.00 and High risk medication use Z79.899 [place] [id number] [place] [address] 67588- 2910 07 Apr, 2018 PTSD (post-traumatic stress disorder) F43.10 [place] [id number] [place] [address] 83952- 6703 Apr, [address] [id number] [place] [address] 67702- 4631 March, BMI 40.0-44.9, adult Z68.41 ; Morbid obesity due to excess calories E66.01 ; Lumbago with sciatica, right side M54.41 and Other chronic pain G89.29 [place] [id number] [place] [address] 81818- 3088 March, PTSD (post-traumatic stress disorder) F43.10 [address] [place] [place] [address] 80943- 3734 March, PTSD (post-traumatic stress disorder) F43.10 ; Mood disorder F39 ; Borderline personality disorder F60.3 and Cannabis use disorder, mild, abuse F12.10 [address], [place] [address] 34[address] Feb, [address] [address] [address] 24[address] Feb, [facility] [id number] [address] Feb, Breast cancer screening Z12.31 [address] [place] [address] 33279- 8602 Feb, Mood disorder F39 and PTSD (post-traumatic stress disorder) F43.10 [address] [place] [place] [address] 91043- 9795 Feb, PTSD (post-traumatic stress disorder) F43.10 ; Mood disorder F39 ; Borderline personality disorder F60.3 and Cannabis use disorder, mild, abuse F12.10 [address] [address], [place] [address] 8737 Feb, Schizo affective schizophrenia F25.0 ; Adjustment disorder with mixed anxiety and depressed mood F43.23 ; Night terror F51.4 ; Anxiety F41.9 and Borderline personality disorder F60.3 [address] [place], [place] [address] 1008 Feb, [address] [address], [place] [address] 9644 Feb, Mood disorder F39 [address] [address], [place] [address] 4094 Feb, Annual physical exam Z00.00 ; BMI 40.0-44.9, adult Z68.41 and Nipple discharge N64.52 [place] [address], [place] [address] 6[address] Jan, Schizo affective schizophrenia F25.0 ; Adjustment disorder with mixed anxiety and depressed mood F43.23 ; Night terror F51.4 ; Anxiety F41.9 and Borderline personality disorder F60.3 [address] [id number] [place] [address] 40523- 3909 Jan, Mood disorder F39 ; PTSD (post-traumatic stress disorder) F43.10 ; Borderline personality disorder F60.3 and High risk medication use Z79.899 [facility] [address] 30967- 6061 Dec, Anxiety F41.9 and Borderline personality disorder F60.3 [address] [address] 35405- 2406 Dec, [place] [address] 42400- 5970 Dec, Anxiety F41.9 and Borderline personality disorder F60.3 [address] [address] 58913- 1860 Dec, [place] [address] 63635- 6447 Dec, [place] [address] 49350- 7863 Nov, Acute non-recurrent maxillary sinusitis J01.00 ; Mood disorder F39 and Sciatica, unspecified side M54.30 [place] [id number] [place] [address] 32643- 2762 Nov, Mood disorder F39 ; PTSD (post-traumatic stress disorder) F43.10 and Borderline personality disorder F60.3 [place] [id number] [place] [address] 57360- 6278 Nov, Anxiety F41.9 and Borderline personality disorder F60.3 [facility] [id number] [place] [address] 65893- 4860 Nov, [facility] [id number] [place] [address] 66543- 2766 Nov, Anxiety F41.9 and Sciatica, unspecified side M54.30 [facility] [id number] [place] [address] 82749- 4543 Oct, Anxiety F41.9 [facility] [id number] [place] [address] 22694- 2201 Oct, Mood disorder F39 ; PTSD (post-traumatic stress disorder) F43.10 ; Borderline personality disorder F60.3 and High risk medication use Z79.899 [facility] [id number] [place] [address] [id number] 11 Oct, 2017 Dental caries K02.9 and Dental examination Z01.20 [facility] [address] 33626- 1368 Sep, Dysuria R30.0 and Abdominal pain, right lower quadrant R10.31 [place] [address] 32918- 1553 Aug, Mood disorder F39 ; PTSD (post-traumatic stress disorder) F43.10 and Borderline personality disorder F60.3 [facility] [id number] [place] [address] 14953- 7643 Aug, [facility] [id number] [place] [address] 12650- 8791 Aug, [facility] [id number] [place] [address] 43840- 2795 Aug, Severe episode of recurrent major depressive disorder, with psychotic features F33.3 ; PTSD (post-traumatic stress disorder) F43.10 ; Adjustment disorder with mixed anxiety and depressed mood F43.23 and Borderline personality disorder F60.3 [facility] [id number] [place] [address] 18890- 9650 Aug, Mood disorder F39 ; PTSD (post-traumatic stress disorder) F43.10 and Borderline personality disorder F60.3 [facility] [id number] [place] [address] 93709- 5778 Aug, [facility] [address] [facility] [id number] [address] 2546 Aug, Bipolar 1 disorder F31.9 and Schizo affective schizophrenia F25.0 [facility] [address] [facility] [id number] [address] 2546 Aug, Mood disorder F39 [facility] [id number], [place] [address] 2546 Aug, Bipolar 1 disorder F31.9 and Schizo affective schizophrenia F25.0 [facility] [address] [facility] [id number], [place] [address] 2546 Aug, Bipolar 1 disorder F31.9 and Schizo affective schizophrenia F25.0 [facility] [id number], [place] [address] 2546 Aug, [facility] [id number] [place] [address] 38065 2546 Aug, PTSD (post-traumatic stress disorder) F43.10 and Borderline personality disorder F60.3 [facility] [id number] [address] 2546 Aug, [facility] [id number] [place] [address] 95846 2546 Aug, Mood disorder F39 ; PTSD (post-traumatic stress disorder) F43.10 ; Borderline personality disorder F60.3 and Adjustment disorder with mixed anxiety and depressed mood F43.23 [facility] [id number], [place] [address] 2546 Jul, [facility] [address] [facility] [id number], [place] [address] 2546 Jul, Mood disorder F39 ; PTSD (post-traumatic stress disorder) F43.10 and Borderline personality disorder F60.3 [facility] [id number], [place] [address] 2546 Jul, [facility] [address], [place] [address]- 6411 Jun, Anxiety F41.9 ; ADHD (attention deficit hyperactivity disorder) F90.9 ; Night terror F51.4 ; Bulimia F50.2 ; Severe episode of recurrent major depressive disorder, with psychotic features F33.3 and PTSD ( post-traumatic stress disorder) F43.10 [facility] [id number] [place] [address] 21136- 0590 Jun, Borderline personality disorder F60.3 ; Mood disorder F39 and PTSD (post-traumatic stress disorder) F43.10 [facility] [address] [place] [address] 88313- 2442 Jun, Anxiety F41.9 [facility] [id number] [place] [address] 00820- 8243 Jun, Anxiety F41.9 ; ADHD (attention deficit hyperactivity disorder) F90.9 ; Night terror F51.4 ; Bulimia F50.2 ; Severe episode of recurrent major depressive disorder, with psychotic features F33.3 and PTSD ( post-traumatic stress disorder) F43.10 [facility] [address] [place] [address] 50806- 5962 Jun, ADHD (attention deficit hyperactivity disorder) F90.9 ; Night terror F51.4 ; Bulimia F50.2 ; Anxiety F41.9 ; Severe episode of recurrent major depressive disorder, with psychotic features F33.3 and PTSD ( post-traumatic stress disorder) F43.10 [facility] [address] [place] [address] 97059- 6662 May, Anxiety F41.9 [facility] [address] [place] [address] 58683- 8405 May, PTSD (post-traumatic stress disorder) F43.10 and Borderline personality disorder F60.3 [facility] [address], [place] [address]- 2209 Apr, [facility] [address] [place] [address] [id number] March, Dental examination Z01.20 and Dental caries K02.9 [facility] [id number] [place] [address] 36216- 9838 March, Dental examination Z01.20 [facility] [address] [place] [address] 14829- 9250 March, Tooth abscess K04.7 and Tooth pain K08.89 [facility] [id number] [place] [address] 36066- 0521 March, Borderline personality disorder F60.3 [facility] [id number] [place] [address] 42532- 5209 March, ADHD (attention deficit hyperactivity disorder) F90.9 ; Night terror F51.4 ; Bulimia F50.2 and Anxiety F41.9 [address] [id number] [place] [address] 55839- 2906 Feb, Borderline personality disorder F60.3 ; ADHD (attention deficit hyperactivity disorder) F90.9 ; Anxiety F41.9 ; Bulimia F50.2 ; Obsessive-compulsive disorder, unspecified type F42.9 and Night terror F51.4 [facility] [id number] [place] [address] 67320- 0127 Feb, [facility] [address], [place] [address]- 9548 Feb, [facility] [id number] [place] [address] 82248- 0423 Jul, [facility] [id number] [place] [address] 87125- 4494 Jul, [facility] [id number] [place] [address] 43610- 9947 Jul, [facility] [address], [place] [address]- 3347 Jul, [facility] [id number] [place] [address]- 6699 Jun, [facility] [address] [id number] [place] [address]- 8231 Jun, [facility] [place] [facility] [address] [id number] [place] [address]- 3550 Jun, [facility] [address] [id number] [place] [address]- 1318 Jun, [facility] [place] [facility] [address] [id number] [place] [address]- 6944 Apr, [facility] [place] [facility] [address] [id number] [place] [address]- 7108 Apr, [facility] [place] [facility] [address] [id number] [place] [address]- 3044 March, [facility] [place] [facility] [address] [id number] [place] [address]- 1633 March, [facility] [address] [id number] [place] [address]- 1582 Jan, [facility] [place] [facility] [address] [id number] [place] [address]- 6127 Jan, [facility] [address] [id number] [place] [address]- 2896 Jan, [facility] [place] [facility] [address] [id number] [place] [address]- 1119 Jan, [facility] [place] [facility] [address] [id number] [place] [address]- 4989 Jan, [facility] [place] [facility] [address] [id number] [place] [address]- 2213 Dec, [facility] [place] [facility] [address] [id number] [place] [address]- 0286 Dec, [facility] [place] [facility] [address] [id number] [place] [address]- 1952 Oct, [facility] [place] [facility] [address] [id number] [place] [address]- 2617 Oct, [facility] [place] [facility] [address] [id number] [place] [address]- 6346 Oct, [facility] [place] [facility] [address] [id number] [place] [address]- 7468 Oct, [facility] [place] [facility] [address] [id number] [place] [address]- 8858 Sep, [facility] [place] [facility] [address] [id number] [place] [address]- 9585 Sep, [facility] [place] [facility] [address] [id number] [place] [address]- 8966 Sep, [facility] [place] [facility] [address] [id number] [place] [address]- 1800 Aug, [facility] [place] [facility] [address] [id number] [place] [address]- 7905 Aug, [facility] [place] [facility] [address] [id number] [place] [address]- 6912 Aug, [facility] [place] [facility] [address] [id number], [place] [address]- 9924 Aug, [facility] [place] [facility] [address] [id number], [place] [address]- 6116 Aug, [facility] [place] [facility] [address] [id number], [place] [address]- 3309 Aug, [facility] [place] [facility] [address] [id number] [place] [address]- 7579 Aug, [facility] [place] [facility] [address] [id number], [place] [address]- 0816 Jul, [facility] [place] [facility] [address] [id number] [place] [address]- 5039 Jun, [facility] [place] [facility] [address] [id number] [place] [address]- 2685 Jun, [facility] [address] [id number] [place] [address]- 3574 Jun, [facility] [address] [id number] [place] [address]- 3521 Jun, [facility] [address] [id number] [place] [address]- 6028 Jun, [facility] [address] [id number] [place] [address]- 0559 Jun, [facility] [address] [id number] [place] [address]- 3396 May, [facility] [address] [id number] [place] [address]- 4116 May, [facility] [address] [id number] [place] [address]- 9526 May, [facility] [address] [id number] [place] [address]- 8712 May, [facility] [address] [id number] [place] [address]- 4983 March, [facility] [address] [id number] [place] [address]- 2608 March, [facility] [address] [id number] [place] [address]- 6944 March, [facility] [address] [id number] [place] [address]- 4724 Feb, [facility] [place] [facility] [address] [id number] [place] [address]- 9001 Feb, [facility] [place] [facility] [address] [id number] [place] [address]- 7600 Feb, [facility] [address] [id number] [place] [address]- 4549 Feb, [facility] [address] [id number] [place] [address]- 2011 27 Jan, 2013 [facility] [place] [facility] [address] [id number] [place] [address]- 0394 20 Jan, 2013 [facility] [place] [facility] [address] [id number] [place] [address]- 2400 Jan, [facility] [place] [facility] [address] [id number] [place] [address]- 8970 27 Dec, 2012 [facility] [place] [facility] [address] [id number] [place] [address]- 0895 14 Dec, 2012 [facility] [place] [facility] [address] [id number] [place] [address]- 2610 Dec, [facility] [address] [id number] [place] [address]- 0880 05 Dec, 2012 [facility] [address] [id number] [place] [address]- 9140 04 Dec, 2012 [facility] [place] [facility] [address] [id number] [place] [address]- 3576 Nov, [facility] [address] [id number] [place] [address]- 5767 Nov, [facility] [place] [facility] [address] [id number] [place] [address]- 4011 Nov, [facility] [place] [facility] [address] [id number] [place] [address]- 7968 Nov, [facility] [place] [facility] [address] [id number] [place] [address]- 5621 Oct, [facility] [place] [facility] [address] [id number] [place] [address]- 1876 Oct, [facility] [place] [facility] [address] [id number] [place] [address]- 7709 Oct, [facility] [place] [facility] [address] [id number] [place] [address] Oct, [facility] [place] [facility] [address] [id number] [place] [address] Oct, [facility] [place] [facility] [address] [id number] [place] [address] Oct, [facility] [place] [facility] [address] [id number] [place] [address] Oct, [facility] [place] [facility] [address] [id number] [place] [address] Oct, [facility] [place] [facility] [address] [id number] [place] [address] Oct, [facility] [place] [facility] [address] [id number] [place] [address] Oct, [facility] [place] [facility] [address] [id number] [place] [address] Oct, [facility] [place] [facility] [address] [id number] [place] [address] Oct, [facility] [place] [facility] [address] [id number] [place] [address] Oct, [facility] [place] [facility] [address] [id number] [place] [address] Sep, [facility] [place] [facility] [address] [id number] [place] [address] Sep, [facility] [place] [facility] [address] [id number] [place] [address] Sep, [facility] [place] [facility] [address] [id number] [place] [address] Sep, [facility] [place] [facility] [address] [id number] [place] [address] Sep, [facility] [place] [facility] [address] [facility] [id number] [place] [address] Sep, [facility] [place] [facility] [address] [id number] [place] [address] Sep, [facility] [place] [facility] [address] [id number] [place] [address] Sep, [facility] [place] [facility] [address] [id number] [place] [address] Sep, [facility] [place] [facility] [address] [id number] [place] [address]- [address] Sep, [facility] [place] [facility] [address] [id number] [place] [address] Sep, [facility] [place] [facility] [address] [id number] [place] [address] Sep, [facility] [place] [facility] [address] [id number] [place] [address] Aug, [facility] [place] [facility] [address] [id number] [place] [address] Aug, [facility] [place] [facility] [address] [id number] [place] [address] Aug, [facility] [place] [facility] [address] [id number] [place] [address] Aug, [facility] [place] [facility] [address] [facility] [id number] [place] [address] Aug, [facility] [place] [facility] [address] [id number] [place] [address] Aug, [facility] [place] [facility] [address] [id number] [place] [address] Aug, [facility] [place] [facility] [address] [address] [id number] [place] [address] Aug, [facility] [place] [facility] [address] [id number] [place] [address] Aug, [facility] [place] [facility] [address] [id number] [place] [address] Aug, [facility] [place] [facility] [address] [id number] [place] [address] Aug, [facility] [place] [facility] [address] [id number] [place] [address] Aug, [facility] [place] [facility] [address] [id number] [place] [address] 28 Jul, 2012 [facility] [place] [facility] [address] [id number] [place] [address] 27 Jul, 2012 [facility] [place] [facility] [address] [id number] [place] [address] Jul, [facility] [place] [facility] [address] [id number] [place] [address] Jul, [facility] [place] [facility] [address] [id number] [place] [address] Jul, [facility] [place] [facility] [address] [id number] [place] [address] Jul, [facility] [place] [facility] [address] [id number] [place] [address]70 Jun, [facility] [place] [facility] [address] [id number] [place] [address] Jun, [facility] [place] [facility] [address] [id number] [place] [address] Jun, [facility] [place] [facility] [address] [id number], [place] [address] May, [facility] [place] [facility] [address] [id number] [place] [address]87 May, [facility] [place] [facility] [address] [id number] [place] [address] May, [facility] [place] [facility] [address] [id number] [place] [address]60 May, [facility] [place] [facility] [address] [id number] [place] [address] 06 May, 2012 [facility] [place] [facility] [address] [id number] [place] [address]- 4485 05 May, 2012 [facility] [place] [facility] [address] [id number] [place] [address] 30 Apr, 2012 [facility] [place] [facility] [address] [facility] [id number] [place] [address] 23 Feb, 2012 [facility] [place] [facility] [address] [id number] [place] [address] 4745 18 Feb, 2012 [facility] [place] [facility] [address] [id number] [place] [address] 9838 11 Feb, 2012 [facility] [place] [facility] [address] [facility] [id number] [place] [address]- 5104 10 Feb, 2012 [facility] [place] [facility] [id number] [place] [address] 16 Jan, 2012 [facility] [place] [facility] [address] [facility] [id number] [place] [address] 3989 12 Jan, 2012 [facility] [place] [facility] [id number] [place] [address] 29 Dec, 2011 [facility] [place] [facility] [id number] [place] [address]71 28 Dec, 2011 [facility] [place] [facility] [id number] [place] [address] 9696 21 Dec, 2011 [facility] [place] [facility] [address] [facility] [id number] [place] [address] 1035 14 Dec, 2011 [facility] [place] [facility] [address] [id number] [place] [address] 6[address] 14 Dec, 2011 [facility] [place] [facility] [address] [facility] [id number] [place] [address] 2456 13 Dec, 2011 [facility] [place] [facility] [id number] [place] [address]72 Dec, [facility] [address] [id number] [place] [address]113 Dec, [facility] [place] [facility] [address] [id number] [place] [address]136 Dec, [facility] [address] [id number] [place] [address] 1843 Nov, [facility] [place] [facility] [address] [id number] [place] [address] 7509 Nov, [facility] [address] [id number] [place] [address] 2405 Nov, [facility] [place] [facility] [address] [id number] [place] [address] 9857 Nov, [facility] [place] [facility] [address] [id number] [place] [address]- 5686 Nov, [facility] [address] [id number] [place] [address]- 0100 Nov, [facility] [address] [id number] [place] [address]- 5565 Nov, [facility] [address] [id number] [place] [address] 3383 Nov, [facility] [address] [id number], [place] [address] Nov, [facility] [place] [facility] [address] [id number], [place] [address] Oct, [facility] [place] [facility] [address] [id number] [place] [address] 3446 Oct, [facility] [place] [facility] [address] [id number] [place] [address]- 3796 Oct, [facility] [place] [facility] [address] [facility] [id number] [place] [address]- 0995 Oct, [facility] [place] [facility] [address] [id number] [place] [address]- 7702 05 Oct, 2011 [facility] [address] [id number] [place] [address]- 7533 Oct, [facility] [place] [facility] [address] [id number] [place] [address]- 3484 02 Sep, 2011 [facility] [address] [id number] [place] [address]- 4196 19 Aug, 2011 [facility] [place] [facility] [address] [id number] [place] [address]- 1695 Jul, [facility] [place] [facility] [address] [id number] [place] [address]- 3501 17 Nov, 2010 [facility] [place] [facility] [address] [id number] [place] [address]- 2858 Nov, [facility] [address] [id number] [place] [address]- 4045 23 Oct, 2010 [facility] [place] [facility] [address] [id number] [place] [address]- 2094 10 Sep, 2010 [facility] [place] [facility] [address] [id number] [place] [address]- 8941 Sep, [facility] [place] [facility] [address] [facility] [id number] [place] [address]- 9655 18 Aug, 2010 [facility] [place] [facility] [address] [id number] [place] [address]- 5409 14 Aug, 2010 [facility] [place] [facility] [address] [id number] [place] [address]- 0757 14 Aug, 2010 [facility] [place] [facility] [address] [id number] [place] [address]- 3741 13 Feb, 2010 [facility] [place] [facility] [address] [id number] [place] [address]- 8698 10 Dec, 2009 [facility] [place] [facility] [address] [id number] [place] [address]- 8053 Oct, [facility] [address] [id number] [address] Oct, [facility] [address] [id number] [address] Oct, [facility] [address] [facility] [id number], [place] [address] Sep, [facility] [id number] [address] 6[address] Sep, [facility] [address] [id number] [address] Sep, [facility] [address] [id number] [address] Aug, [facility] [address] [id number] [address] Aug, IMMUNIZATIONS No Known Immunizations SOCIAL HISTORY Never Assessed REASON FOR VISIT Repository Medication PLAN OF CARE VITAL SIGNS MEDICATIONS Medication Instructions Dosage Frequency Start Date End Date Duration Status Seroquel 100 MG Orally Three times a day 1 tablet 8h Oct, 90 days Active BusPIRone HCl 10 mg Orally Three times a day 2 tablets 8h Feb, 45 days Active Quetiapine Fumarate 300 MG Orally Once a day 1 tablet at bedtime 24h 90 days Active RESULTS No Results PROCEDURES No [...] mental health issues x2 Ward Unit in [place] 2016 & 02/2017 Hospitalization History Surgery(s)/Childbirth(s)
--- OUTSIDE RECORDS SUMMARY | 2018-08-03 08:27 | XMS REPORT ---
Author Author RACHAEL CHEATHAM Organization [facility] Address [address] [place] [address] Care Team Providers Care Patient Registration Specialist Name Role Phone RACHAEL CHEATHAM Unavailable PROBLEMS Type Condition ICD9-CM Code [id number] Code Onset Dates Condition Status SNOMED Code Problem Adjustment disorder with mixed anxiety and depressed mood F43.23 Active 75374317 Problem Bipolar 1 disorder F31.9 Active 352799092 Problem Schizo affective schizophrenia F25.0 Active 331187436 Problem Dysmenorrhea N94.6 Active 551459829 Problem Morbid obesity due to excess calories E66.01 Active 622148409 Problem Cannabis use disorder, mild, abuse F12.10 Active 31949462 Problem Sciatica, unspecified side M54.30 Active 98755692 Problem Other chronic pain G89.29 Active 62275846 Problem Lumbago with sciatica, right side M54.41 Active 204579162 Problem Anxiety F41.9 Active 78438355 Problem PTSD (post-traumatic stress disorder) F43.10 Active 11892774 Problem Borderline personality disorder F60.3 Active 77003966 Problem Severe episode of recurrent major depressive disorder, with psychotic features F33.3 Active 82461417 Problem Night terror F51.4 Active 38076461 Problem Mood disorder F39 Active 17273245 ALLERGIES No Information ENCOUNTERS Encounter Location Date Diagnosis [facility] [id number] [address] Jul, [facility] [id number], [place] [address] Jul, [facility] [id number], [place] [address] Jun, [facility] [id number], [place] [address] Jun, PTSD (post-traumatic stress disorder) F43.10 ; Mood disorder F39 ; Borderline personality disorder F60.3 and Cannabis use disorder, mild, abuse F12.10 [facility] [id number] [place] [address] 42424- 3293 Jun, [facility] [id number] [place] [address] 61232- 4249 Jun, PTSD (post-traumatic stress disorder) F43.10 [place] [address] [address]- 9781 Jun, [place] adverse reaction T43.595A and Sprain of anterior talofibular ligament of left ankle, initial encounter S93.492A [facility] [id number] [place] [address] 23506- 3174 Jun, [facility] [place] [address] [address]33- 3571 May, [facility] [place] [address] 89272- 0243 May, Skin tags, multiple acquired L91.8 ; Dysmenorrhea N94.6 and Acute non-recurrent maxillary sinusitis J01.00 [facility] [id number] [place] [address] 95497- 8987 May, PTSD (post-traumatic stress disorder) F43.10 [facility] [place] [id number] [place] [address] 00844- 2975 May, Other prison (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 [place] [id number] [place] [address] 80393- 6818 May, PTSD (post-traumatic stress disorder) F43.10 ; Mood disorder F39 ; Borderline personality disorder F60.3 and Cannabis use disorder, mild, abuse F12.10 [place] [id number] [place] [address] 99398- 2865 May, BMI 40.0-44.9, adult Z68.41 [facility] [place] [id number] [place] [address] 94064- 2843 18 Apr, 2018 BMI 40.0-44.9, adult Z68.41 [facility] [place] [id number] [place] [address] 94154- 8469 14 Apr, 2018 Acute non-recurrent maxillary sinusitis J01.00 [facility] [id number] [place] [address] 51109- 5086 11 Apr, 2018 PTSD (post-traumatic stress disorder) F43.10 ; Mood disorder F39 ; Borderline personality disorder F60.3 ; Cannabis use disorder, mild, abuse F12.10 and 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 [place] [id number] [place] [address] 54025- 4633 08 Apr, 2018 [facility] [place] [id number] [place] [address] 25711- 7763 07 Apr, 2018 Annual physical exam Z00.00 and High risk medication use Z79.899 [place] [place] [id number] [place] [address] 72340- 8195 07 Apr, 2018 PTSD (post-traumatic stress disorder) F43.10 [facility] [place] [id number] [place] [address] 52031- 7588 Apr, [place] [place] [id number] [place] [address] 01733- 7085 March, BMI 40.0-44.9, adult Z68.41 ; Morbid obesity due to excess calories E66.01 ; Lumbago with sciatica, right side M54.41 and Other chronic pain G89.29 [place] [id number] [place] [address] 69384- 6148 March, PTSD (post-traumatic stress disorder) F43.10 [place] [id number] [place] [address] 41646- 9478 March, PTSD (post-traumatic stress disorder) F43.10 ; Mood disorder F39 ; Borderline personality disorder F60.3 and Cannabis use disorder, mild, abuse F12.10 [place] [address], [place] [address] 2194 Feb, [place] [address], [place] [address] 29[address] Feb, [facility] [id number] [address] Feb, Breast cancer screening Z12.31 [place] [id number] [place] [address] 09322- 6125 Feb, Mood disorder F39 and PTSD (post-traumatic stress disorder) F43.10 [place] [id number] [place] [address] 41896- 9616 Feb, PTSD (post-traumatic stress disorder) F43.10 ; Mood disorder F39 ; Borderline personality disorder F60.3 and Cannabis use disorder, mild, abuse F12.10 [place] [address], [place] [address]- 3632 Feb, Schizo affective schizophrenia F25.0 ; Adjustment disorder with mixed anxiety and depressed mood F43.23 ; Night terror F51.4 ; Anxiety F41.9 and Borderline personality disorder F60.3 [place] [address], [place] [address] 5732 Feb, [facility] [place] [address], [place] [address] 2991 Feb, Mood disorder F39 [place] [address], [place] [address] 75[address] Feb, Annual physical exam Z00.00 ; BMI 40.0-44.9, adult Z68.41 and Nipple discharge N64.52 [place] [address], [place] [address] 2761 Jan, Schizo affective schizophrenia F25.0 ; Adjustment disorder with mixed anxiety and depressed mood F43.23 ; Night terror F51.4 ; Anxiety F41.9 and Borderline personality disorder F60.3 [facility] [id number] [place] [address] 79728- 7220 Jan, Mood disorder F39 ; PTSD (post-traumatic stress disorder) F43.10 ; Borderline personality disorder F60.3 and High risk medication use Z79.899 [facility] [address] 49342- 2340 Dec, Anxiety F41.9 and Borderline personality disorder F60.3 [place] [address] 79352- 0814 Dec, [place] [address] 85077- 7769 Dec, Anxiety F41.9 and Borderline personality disorder F60.3 [place] [address] 67141- 2498 Dec, [place] [address] 19800- 9066 Dec, [place] [address] 80314- 6324 Nov, Acute non-recurrent maxillary sinusitis J01.00 ; Mood disorder F39 and Sciatica, unspecified side M54.30 [place] [id number] [place] [address] 31689- 2527 Nov, Mood disorder F39 ; PTSD (post-traumatic stress disorder) F43.10 and Borderline personality disorder F60.3 [place] [id number] [place] [address] 99110- 3287 Nov, Anxiety F41.9 and Borderline personality disorder F60.3 [facility] [id number] [place] [address] 18974- 7018 Nov, [facility] [id number] [place] [address] 64088- 5223 Nov, Anxiety F41.9 and Sciatica, unspecified side M54.30 [facility] [id number] [place] [address] 81197- 5647 Oct, Anxiety F41.9 [facility] [id number] [place] [address] 29531- 5379 Oct, Mood disorder F39 ; PTSD (post-traumatic stress disorder) F43.10 ; Borderline personality disorder F60.3 and High risk medication use Z79.899 [facility] [id number] [place] [address] [id number] 11 Oct, 2017 Dental caries K02.9 and Dental examination Z01.20 [facility] [address] 95417- 5222 Sep, Dysuria R30.0 and Abdominal pain, right lower quadrant R10.31 [place] [address] 55908- 2403 Aug, Mood disorder F39 ; PTSD (post-traumatic stress disorder) F43.10 and Borderline personality disorder F60.3 [facility] [id number] [place] [address] 87676- 9699 Aug, [facility] [id number] [place] [address] 88660- 4484 Aug, [facility] [id number] [place] [address] 03964- 4968 Aug, Severe episode of recurrent major depressive disorder, with psychotic features F33.3 ; PTSD (post-traumatic stress disorder) F43.10 ; Adjustment disorder with mixed anxiety and depressed mood F43.23 and Borderline personality disorder F60.3 [facility] [id number] [place] [address] 09019- 0064 Aug, Mood disorder F39 ; PTSD (post-traumatic stress disorder) F43.10 and Borderline personality disorder F60.3 [facility] [id number] [place] [address] 85448- 0168 Aug, [facility] [address] [facility] [id number] [address] 2546 Aug, Bipolar 1 disorder F31.9 and Schizo affective schizophrenia F25.0 [facility] [address] [facility] [id number], [place] [address] 2546 Aug, Mood disorder F39 [facility] [id number], [place] [address] 2546 Aug, Bipolar 1 disorder F31.9 and Schizo affective schizophrenia F25.0 [facility] [address] [facility] [id number] [address] 2546 Aug, Bipolar 1 disorder F31.9 and Schizo affective schizophrenia F25.0 [facility] [id number], [place] [address] 2546 Aug, [facility] [id number] [place] [address] 09493 2546 Aug, PTSD (post-traumatic stress disorder) F43.10 and Borderline personality disorder F60.3 [facility] [id number], [place] [address] 2546 Aug, [facility] [id number] [place] [address] 36294 2546 Aug, Mood disorder F39 ; PTSD (post-traumatic stress disorder) F43.10 ; Borderline personality disorder F60.3 and Adjustment disorder with mixed anxiety and depressed mood F43.23 [facility] [id number], [place] [address] 2546 Jul, [facility] [address] [facility] [id number], [place] [address] 2546 Jul, Mood disorder F39 ; PTSD (post-traumatic stress disorder) F43.10 and Borderline personality disorder F60.3 [facility] [id number], [place] [address] 2546 Jul, [facility] [address], [place] [address]- 2132 Jun, Anxiety F41.9 ; ADHD (attention deficit hyperactivity disorder) F90.9 ; Night terror F51.4 ; Bulimia F50.2 ; Severe episode of recurrent major depressive disorder, with psychotic features F33.3 and PTSD ( post-traumatic stress disorder) F43.10 [facility] [id number] [place] [address] 90796- 2156 Jun, Borderline personality disorder F60.3 ; Mood disorder F39 and PTSD (post-traumatic stress disorder) F43.10 [facility] [id number] [place] [address] 45808- 1387 Jun, Anxiety F41.9 [facility] [id number] [place] [address] 58876- 3394 Jun, Anxiety F41.9 ; ADHD (attention deficit hyperactivity disorder) F90.9 ; Night terror F51.4 ; Bulimia F50.2 ; Severe episode of recurrent major depressive disorder, with psychotic features F33.3 and PTSD ( post-traumatic stress disorder) F43.10 [facility] [address] [place] [address] 60576- 2924 Jun, ADHD (attention deficit hyperactivity disorder) F90.9 ; Night terror F51.4 ; Bulimia F50.2 ; Anxiety F41.9 ; Severe episode of recurrent major depressive disorder, with psychotic features F33.3 and PTSD ( post-traumatic stress disorder) F43.10 [facility] [id number] [place] [address] 47810- 9989 May, Anxiety F41.9 [facility] [id number] [place] [address] 12714- 2272 May, PTSD (post-traumatic stress disorder) F43.10 and Borderline personality disorder F60.3 [facility] [address], [place] [address]- 7711 Apr, [facility] [address] [place] [address] [id number] March, Dental examination Z01.20 and Dental caries K02.9 [facility] [id number] [place] [address] 40376- 4624 March, Dental examination Z01.20 [facility] [address] [place] [address] 91425- 3758 March, Tooth abscess K04.7 and Tooth pain K08.89 [facility] [id number] [place] [address] 09181- 3970 March, Borderline personality disorder F60.3 [facility] [id number] [place] [address] 36611- 1503 March, ADHD (attention deficit hyperactivity disorder) F90.9 ; Night terror F51.4 ; Bulimia F50.2 and Anxiety F41.9 [place] [id number] [place] [address] 66874- 5808 Feb, Borderline personality disorder F60.3 ; ADHD (attention deficit hyperactivity disorder) F90.9 ; Anxiety F41.9 ; Bulimia F50.2 ; Obsessive-compulsive disorder, unspecified type F42.9 and Night terror F51.4 [facility] [id number] [place] [address] 07361- 9240 Feb, [facility] [address], [place] [address]- 8710 Feb, [facility] [id number] [place] [address] 03892- 1234 Jul, [facility] [id number] [place] [address] 41048- 4365 Jul, [facility] [id number] [place] [address] 09728- 7810 Jul, [facility] [address], [place] [address]- 8735 Jul, [facility] [id number] [place] [address]- 2131 Jun, [facility] [address] [id number] [place] [address]- 5328 Jun, [facility] [place] [facility] [address] [id number] [place] [address]- 3587 Jun, [facility] [address] [id number] [place] [address]- 6495 Jun, [facility] [place] [facility] [address] [id number] [place] [address]- 8565 Apr, [facility] [place] [facility] [address] [id number] [place] [address]- 1670 Apr, [facility] [place] [facility] [address] [id number] [place] [address]- 3109 March, [facility] [place] [facility] [address] [id number] [place] [address]- 0298 March, [facility] [address] [id number] [place] [address]- 2185 Jan, [facility] [place] [facility] [address] [id number] [place] [address]- 2141 Jan, [facility] [address] [id number] [place] [address]- 6078 Jan, [facility] [place] [facility] [address] [id number] [place] [address]- 9819 Jan, [facility] [place] [facility] [address] [id number] [place] [address]- 2217 Jan, [facility] [place] [facility] [address] [id number] [place] [address]- 5143 Dec, [facility] [place] [facility] [address] [id number] [place] [address]- 2986 Dec, [facility] [place] [facility] [address] [id number] [place] [address]- 1196 Oct, [facility] [place] [facility] [address] [id number] [place] [address]- 3209 Oct, [facility] [place] [facility] [address] [id number] [place] [address]- 2708 Oct, [facility] [place] [facility] [address] [id number] [place] [address]- 4128 Oct, [facility] [place] [facility] [address] [id number] [place] [address]- 6210 Sep, [facility] [place] [facility] [address] [id number] [place] [address]- 4940 Sep, [facility] [place] [facility] [address] [id number] [place] [address]- 8699 Sep, [facility] [place] [facility] [address] [id number] [place] [address]- 9024 Aug, [facility] [place] [facility] [address] [id number] [place] [address]- 2053 Aug, [facility] [place] [facility] [address] [id number] [place] [address]- 0600 Aug, [facility] [place] [facility] [address] [id number], [place] [address]- 4862 Aug, [facility] [place] [facility] [address] [id number], [place] [address]- 9673 Aug, [facility] [place] [facility] [address] [id number], [place] [address]- 5695 Aug, [facility] [place] [facility] [address] [id number] [place] [address]- 7923 Aug, [facility] [place] [facility] [address] [id number], [place] [address]- 0016 Jul, [facility] [place] [facility] [address] [id number] [place] [address]- 7409 Jun, [facility] [place] [facility] [address] [id number] [place] [address]- 3705 Jun, [facility] [address] [id number] [place] [address]- 6915 Jun, [facility] [address] [id number] [place] [address]- 9078 Jun, [facility] [address] [id number] [place] [address]- 6098 Jun, [facility] [address] [id number] [place] [address]- 2119 Jun, [facility] [address] [id number] [place] [address]- 9788 May, [facility] [address] [id number] [place] [address]- 2058 May, [facility] [address] [id number] [place] [address]- 6235 May, [facility] [address] [id number] [place] [address]- 6987 May, [facility] [address] [id number] [place] [address]- 5816 March, [facility] [address] [id number] [place] [address]- 3265 March, [facility] [address] [id number] [place] [address]- 3216 March, [facility] [address] [id number] [place] [address]- 3813 Feb, [facility] [place] [facility] [address] [id number] [place] [address]- 0654 Feb, [facility] [place] [facility] [address] [id number] [place] [address]- 3910 Feb, [facility] [address] [id number] [place] [address]- 6625 Feb, [facility] [address] [id number] [place] [address]- 8441 27 Jan, 2013 [facility] [place] [facility] [address] [id number] [place] [address]- 5671 20 Jan, 2013 [facility] [place] [facility] [address] [id number] [place] [address]- 1082 Jan, [facility] [place] [facility] [address] [id number] [place] [address]- 7979 27 Dec, 2012 [facility] [place] [facility] [address] [id number] [place] [address]- 8715 14 Dec, 2012 [facility] [place] [facility] [address] [id number] [place] [address]- 3615 Dec, [facility] [address] [id number] [place] [address]- 9552 05 Dec, 2012 [facility] [address] [id number] [place] [address]- 7848 04 Dec, 2012 [facility] [place] [facility] [address] [id number] [place] [address]- 2982 Nov, [facility] [address] [id number] [place] [address]- 0918 Nov, [facility] [place] [facility] [address] [id number] [place] [address]- 2266 Nov, [facility] [place] [facility] [address] [id number] [place] [address]- 0996 Nov, [facility] [place] [facility] [address] [id number] [place] [address]- 1995 Oct, [facility] [place] [facility] [address] [id number] [place] [address]- 9116 Oct, [facility] [place] [facility] [address] [id number] [place] [address]- 4924 Oct, [facility] [place] [facility] [address] [id number] [place] [address]- 4438 Oct, [facility] [place] [facility] [address] [id number] [place] [address]- 7506 Oct, [facility] [place] [facility] [address] [id number] [place] [address]- 2406 Oct, [facility] [place] [facility] [address] [id number] [place] [address]- 2766 Oct, [facility] [place] [facility] [address] [id number] [place] [address]- 4086 Oct, [facility] [place] [facility] [address] [id number] [place] [address]- 8386 Oct, [facility] [place] [facility] [address] [id number] [place] [address]- 2976 Oct, [facility] [place] [facility] [address] [id number] [place] [address] Oct, [facility] [place] [facility] [address] [id number] [place] [address] Oct, [facility] [place] [facility] [address] [id number] [place] [address] Oct, [facility] [place] [facility] [address] [id number] [place] [address] Sep, [facility] [place] [facility] [address] [id number] [place] [address] Sep, [facility] [place] [facility] [address] [id number] [place] [address] Sep, [facility] [place] [facility] [address] [id number] [place] [address] Sep, [facility] [place] [facility] [address] [id number] [place] [address] Sep, [facility] [place] [facility] [address] [facility] [id number] [place] [address] Sep, [facility] [place] [facility] [address] [id number] [place] [address] Sep, [facility] [place] [facility] [address] [id number] [place] [address] Sep, [facility] [place] [facility] [address] [id number] [place] [address] Sep, [facility] [place] [facility] [address] [id number] [place] [address] Sep, [facility] [place] [facility] [address] [id number] [place] [address] Sep, [facility] [place] [facility] [address] [id number] [place] [address] Sep, [facility] [place] [facility] [address] [id number] [place] [address] Aug, [facility] [place] [facility] [address] [id number] [place] [address] Aug, [facility] [place] [facility] [address] [id number] [place] [address] Aug, [facility] [place] [facility] [address] [id number] [place] [address] Aug, [facility] [place] [facility] [address] [facility] [id number] [place] [address] Aug, [facility] [place] [facility] [address] [id number] [place] [address] Aug, [facility] [place] [facility] [address] [id number] [place] [address] Aug, [facility] [place] [facility] [address] [id number] [place] [address] Aug, [facility] [place] [facility] [address] [id number] [place] [address] 2010 Aug, [facility] [place] [facility] [address] [id number] [place] [address] Aug, [facility] [place] [facility] [address] [id number] [place] [address] Aug, [facility] [place] [facility] [address] [id number] [place] [address] Aug, [facility] [place] [facility] [address] [id number] [place] [address] 28 Jul, 2012 [facility] [place] [facility] [address] [id number] [place] [address] 27 Jul, 2012 [facility] [place] [facility] [address] [id number] [place] [address] Jul, [facility] [place] [facility] [address] [id number] [place] [address] Jul, [facility] [place] [facility] [address] [id number] [place] [address] Jul, [facility] [place] [facility] [address] [id number] [place] [address] Jul, [facility] [place] [facility] [address] [id number] [place] [address] Jun, [facility] [place] [facility] [address] [id number] [place] [address] Jun, [facility] [place] [facility] [address] [id number] [place] [address] Jun, [facility] [place] [facility] [address] [id number], [place] [address] May, [facility] [place] [facility] [address] [id number] [place] [address] May, [facility] [place] [facility] [address] [id number] [place] [address] May, [facility] [place] [facility] [address] [id number] [place] [address] May, [facility] [place] [facility] [address] [id number] [place] [address] 06 May, 2012 [facility] [place] [facility] [address] [id number] [place] [address] 05 May, 2012 [facility] [place] [facility] [address] [id number] [place] [address] 30 Apr, 2012 [facility] [place] [facility] [address] [facility] [id number] [place] [address] 23 Feb, 2012 [facility] [place] [facility] [address] [id number] [place] [address] 18 Feb, 2012 [facility] [place] [facility] [address] [id number] [place] [address] 11 Feb, 2012 [facility] [place] [facility] [address] [facility] [id number] [place] [address] 10 Feb, 2012 [facility] [place] [facility] [id number] [place] [address] 16 Jan, 2012 [facility] [place] [facility] [address] [facility] [id number] [place] [address] 12 Jan, 2012 [facility] [place] [facility] [id number] [place] [address] 29 Dec, 2011 [facility] [place] [facility] [id number] [place] [address] 28 Dec, 2011 [facility] [place] [facility] [id number] [place] [address] 21 Dec, 2011 [facility] [place] [facility] [address] [facility] [id number] [place] [address] 14 Dec, 2011 [facility] [place] [facility] [address] [id number] [place] [address] 14 Dec, 2011 [facility] [place] [facility] [address] [facility] [id number] [place] [address] 13 Dec, 2011 [facility] [place] [facility] [id number] [place] [address] Dec, [facility] [address] [id number] [place] [address] Dec, [facility] [place] [facility] [address] [id number] [place] [address] 1196 Dec, [facility] [address] [id number] [place] [address] Nov, [facility] [place] [facility] [address] [id number] [place] [address] 279[address] Nov, [facility] [address] [id number] [place] [address] Nov, [facility] [place] [facility] [address] [id number] [place] [address] 8316 Nov, [facility] [place] [facility] [address] [id number] [place] [address] Nov, [facility] [address] [id number] [place] [address] Nov, [facility] [address] [id number] [place] [address] Nov, [facility] [address] [id number] [place] [address] Nov, [facility] [address] [id number], [place] [address] Nov, [facility] [place] [facility] [address] [id number], [place] [address] Oct, [facility] [place] [facility] [address] [id number] [place] [address] 1547 Oct, [facility] [place] [facility] [address] [id number] [place] [address] Oct, [facility] [place] [facility] [address] [facility] [id number] [place] [address] Oct, [facility] [place] [facility] [address] [id number] [place] [address] 8549 05 Oct, 2011 [facility] [address] [id number] [place] [address] Oct, [facility] [place] [facility] [address] [id number] [place] [address] 8936 02 Sep, 2011 [facility] [address] [id number] [place] [address]- 7910 19 Aug, 2011 [facility] [place] [facility] [address] [id number] [place] [address] Jul, [facility] [place] [facility] [address] [id number] [place] [address]363 17 Nov, 2010 [facility] [place] [facility] [address] [id number] [place] [address]- [address] Nov, [facility] [address] [id number] [place] [address]- [address] 23 Oct, 2010 [facility] [place] [facility] [address] [id number] [place] [address]- 7426 10 Sep, 2010 [facility] [place] [facility] [address] [id number] [place] [address]- 9439 Sep, [facility] [place] [facility] [address] [facility] [id number] [place] [address]607 18 Aug, 2010 [facility] [place] [facility] [address] [id number] [place] [address] 6[address] 14 Aug, 2010 [facility] [place] [facility] [address] [id number] [place] [address] 36[address] 14 Aug, 2010 [facility] [place] [facility] [address] [id number] [place] [address]- 5768 13 Feb, 2010 [facility] [place] [facility] [address] [id number] [place] [address]- 6[address] 10 Dec, 2009 [facility] [place] [facility] [address] [id number] [place] [address] 2460 30 Oct, 2009 [facility] [address] [id number] [address] Oct, [facility] [address] [id number] [address] Oct, [facility] [id number], [place] [address] Sep, [facility] [id number], [place] [address] Sep, [facility] [address] [id number] [address] Sep, [facility] [id number], [place] [address] Aug, [facility] [address] [id number], [place] [address] Aug, IMMUNIZATIONS No Known Immunizations SOCIAL HISTORY Never Assessed REASON FOR VISIT Lab (walk-in) PLAN OF CARE VITAL SIGNS MEDICATIONS Unknown Medications RESULTS Name Result Date Reference Range LITHIUM (ESKALITH(R)), SERUM 2018-02-14 LITHIUM 0.3 0.6-1.2 PROCEDURES Procedure Date Ordered Result Body Site ASSAY OF LITHIUM April 19, 2018 COMPREHEN METABOLIC PANEL April 19, 2018 ASSAY THYROID STIM HORMONE April 19, 2018 COMPLETE CBC W/AUTO DIFF WBC April 19, 2018 VENIPUNCT, ROUTINE* April 19, 2018 LIPID PANEL April 19, 2018 INSTRUCTIONS MEDICATIONS ADMINISTERED No Known Medications [...] EGD Hospitalization History mental health issues x2 [facility] [place] 2016 & 02/2017 Hospitalization History Surgery(s)/Childbirth(s)
--- OUTSIDE RECORDS SUMMARY | 2018-08-03 08:28 | XMS REPORT ---
Author Author RACHAEL CHEATHAM Organization [facility] Address [address] [place] [address] Care Team Providers Care Clinical Specialist Vascular Name Role Phone RACHAEL CHEATHAM Unavailable PROBLEMS Type Condition ICD9-CM Code MPA50-CM Code Onset Dates Condition Status SNOMED Code Problem Adjustment disorder with mixed anxiety and depressed mood F43.23 Active 13370930 Problem Bipolar 1 disorder F31.9 Active 294489196 Problem Schizo affective schizophrenia F25.0 Active 030346492 Problem Dysmenorrhea N94.6 Active 459480174 Problem Morbid obesity due to excess calories E66.01 Active 900317728 Problem Cannabis use disorder, mild, abuse F12.10 Active 54416842 Problem Sciatica, unspecified side M54.30 Active 52068053 Problem Other chronic pain G89.29 Active 37214318 Problem Lumbago with sciatica, right side M54.41 Active 109440897 Problem Anxiety F41.9 Active 26224085 Problem PTSD (post-traumatic stress disorder) F43.10 Active 79116541 Problem Borderline personality disorder F60.3 Active 48205901 Problem Severe episode of recurrent major depressive disorder, with psychotic features F33.3 Active 86874445 Problem Night terror F51.4 Active 87228294 Problem Mood disorder F39 Active 01192500 ALLERGIES Substance Reaction Event Type Date Status Pseudoephedrine HCl ER unknown Drug Allergy March, Active Phenytoin rash Drug Allergy March, Active Penicillamine anaphylaxis Drug Allergy March, Active Cephalexin anaphylaxis Drug Allergy March, Active Albuterol unknown Drug Allergy March, Active ENCOUNTERS Encounter Location Date Diagnosis [facility] [address] [facility] [id number] [address] Jul, [facility] [address] [facility] [id number] [address] Jul, [facility] [address] [place] [id number] [place] [address] 93671- 5370 Jun, [place] [address] [address]- 5600 Jun, PTSD (post-traumatic stress disorder) F43.10 ; Mood disorder F39 ; Borderline personality disorder F60.3 and Cannabis use disorder, mild, abuse F12.10 [place] [address] 42456- 8039 Jun, [place] [address] 18342- 9253 Jun, PTSD (post-traumatic stress disorder) F43.10 [place] [address] 41665- 8049 Jun, Blende adverse reaction T43.595A and Sprain of anterior talofibular ligament of left ankle, initial encounter S93.492A [place] [address] 63685- 1429 Jun, [place] [address] 05015- 0536 May, [place] [address] 57133- 4859 May, Skin tags, multiple acquired L91.8 ; Dysmenorrhea N94.6 and Acute non-recurrent maxillary sinusitis J01.00 [place] [id number] [place] [address] 21185- 5157 May, PTSD (post-traumatic stress disorder) F43.10 [place] [id number] [place] [address] 56740- 8142 May, 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 [place] [id number] [place] [address] 24406- 7512 May, PTSD (post-traumatic stress disorder) F43.10 ; Mood disorder F39 ; Borderline personality disorder F60.3 and Cannabis use disorder, mild, abuse F12.10 [place] [address] [address] 10 May, 2018 BMI 40.0-44.9, adult Z68.41 [place] [id number] [place] [address] 73006- 0565 18 Apr, 2018 BMI 40.0-44.9, adult Z68.41 [place] [id number] [place] [address] 00468- 6103 14 Apr, 2018 Acute non-recurrent maxillary sinusitis J01.00 [place] [id number] [place] [address] 51684- 8267 11 Apr, 2018 PTSD (post-traumatic stress disorder) F43.10 ; Mood disorder F39 ; Borderline personality disorder F60.3 ; Cannabis use disorder, mild, abuse F12.10 and 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 [place] [id number] [place] [address] 54002- 1018 08 Apr, 2018 [place] [id number] [place] [address] 89950- 5051 07 Apr, 2018 Annual physical exam Z00.00 and High risk medication use Z79.899 [place] [id number] [place] [address] 65518- 6524 07 Apr, 2018 PTSD (post-traumatic stress disorder) F43.10 [place] [id number] [place] [address] 13252- 6511 Apr, [place] [id number] [place] [address] 57993- 8735 March, BMI 40.0-44.9, adult Z68.41 ; Morbid obesity due to excess calories E66.01 ; Lumbago with sciatica, right side M54.41 and Other chronic pain G89.29 [place] [address] [place] [address] 90932- 9778 March, PTSD (post-traumatic stress disorder) F43.10 [place] [address] [address] 23[address] March, PTSD (post-traumatic stress disorder) F43.10 ; Mood disorder F39 ; Borderline personality disorder F60.3 and Cannabis use disorder, mild, abuse F12.10 [place] [address] [address] 35[address] Feb, [place] [id number] [place] [address] 41692- 6928 Feb, [facility] [address] [place] [id number] [place] [address] Feb, Breast cancer screening Z12.31 [place] [id number] [place] [address] 58910- 4198 Feb, Mood disorder F39 and PTSD (post-traumatic stress disorder) F43.10 [place] [address] [place] [address] 12584- 4053 Feb, PTSD (post-traumatic stress disorder) F43.10 ; Mood disorder F39 ; Borderline personality disorder F60.3 and Cannabis use disorder, mild, abuse F12.10 [place] [address] [place] [address] 19971- 5040 Feb, Schizo affective schizophrenia F25.0 ; Adjustment disorder with mixed anxiety and depressed mood F43.23 ; Night terror F51.4 ; Anxiety F41.9 and Borderline personality disorder F60.3 [place] [address] [address]- 9[address] Feb, [place] [address] [id number] [place] [address] 37010- 0120 Feb, Mood disorder F39 [place] [address] [place] [address] 80082- 4900 Feb, Annual physical exam Z00.00 ; BMI 40.0-44.9, adult Z68.41 and Nipple discharge N64.52 [place] [id number] [place] [address] 68682- 7258 Jan, Schizo affective schizophrenia F25.0 ; Adjustment disorder with mixed anxiety and depressed mood F43.23 ; Night terror F51.4 ; Anxiety F41.9 and Borderline personality disorder F60.3 [facility] [id number] [place] [address] 08861- 4926 Jan, Mood disorder F39 ; PTSD (post-traumatic stress disorder) F43.10 ; Borderline personality disorder F60.3 and High risk medication use Z79.899 [place] [id number] [place] [address] 47630- 6585 Dec, Anxiety F41.9 and Borderline personality disorder F60.3 [place] [address] [id number] [place] [address] 50195- 1886 Dec, [place] [address] 93546- 7024 Dec, Anxiety F41.9 and Borderline personality disorder F60.3 [place] [address] [place] [id number] [place] [address] 88797- 6330 Dec, [place] [address] [id number] [place] [address] 94910- 2486 Dec, [place] [id number] [place] [address] 04281- 5918 Nov, Acute non-recurrent maxillary sinusitis J01.00 ; Mood disorder F39 and Sciatica, unspecified side M54.30 [facility] [id number] [place] [address] 00042- 0082 Nov, Mood disorder F39 ; PTSD (post-traumatic stress disorder) F43.10 and Borderline personality disorder F60.3 [facility] [id number] [place] [address] 85586- 3909 Nov, Anxiety F41.9 and Borderline personality disorder F60.3 [place] [id number] [place] [address] 42027- 0515 Nov, [facility] [id number] [place] [address] 37432- 7967 Nov, Anxiety F41.9 and Sciatica, unspecified side M54.30 [facility] [id number] [place] [address] 84747- 0581 Oct, Anxiety F41.9 [place] [id number] [place] [address] 59993- 3409 Oct, Mood disorder F39 ; PTSD (post-traumatic stress disorder) F43.10 ; Borderline personality disorder F60.3 and High risk medication use Z79.899 [facility] [address] [place] [id number] [place] [address] [id number] 11 Oct, 2017 Dental caries K02.9 and Dental examination Z01.20 [place] [id number] [place] [address] 33541- 3407 Sep, Dysuria R30.0 and Abdominal pain, right lower quadrant R10.31 [place] [id number] [place] [address] 30589- 8142 Aug, Mood disorder F39 ; PTSD (post-traumatic stress disorder) F43.10 and Borderline personality disorder F60.3 [place] [id number] [place] [address] 25144- 4339 Aug, [place] [address] [id number] [place] [address] 06375- 2622 Aug, [facility] [id number] [place] [address] 78621- 2665 Aug, Severe episode of recurrent major depressive disorder, with psychotic features F33.3 ; PTSD (post-traumatic stress disorder) F43.10 ; Adjustment disorder with mixed anxiety and depressed mood F43.23 and Borderline personality disorder F60.3 [facility] [id number] [place] [address] 75550- 0441 Aug, Mood disorder F39 ; PTSD (post-traumatic stress disorder) F43.10 and Borderline personality disorder F60.3 [facility] [id number] [place] [address] 66008- 1426 Aug, [facility] [id number] [place] [address] 29492- 7786 Aug, Bipolar 1 disorder F31.9 and Schizo affective schizophrenia F25.0 [facility] [id number] [place] [address] 70829- 4544 Aug, Mood disorder F39 [facility] [id number] [place] [address] 84050- 2406 Aug, Bipolar 1 disorder F31.9 and Schizo affective schizophrenia F25.0 [facility] [id number] [place] [address] 62766- 8842 Aug, Bipolar 1 disorder F31.9 and Schizo affective schizophrenia F25.0 [facility] [id number] [place] [address] 11073- 9523 Aug, [facility] [id number] [place] [address] 32726- 2790 Aug, PTSD (post-traumatic stress disorder) F43.10 and Borderline personality disorder F60.3 [facility] [id number] [place] [address] 64694- 3618 Aug, [facility] [id number] [place] [address] 60065- 9707 Aug, Mood disorder F39 ; PTSD (post-traumatic stress disorder) F43.10 ; Borderline personality disorder F60.3 and Adjustment disorder with mixed anxiety and depressed mood F43.23 [facility] [address] [id number] [place] [address] 28196- 8122 Jul, [facility] [id number] [place] [address] 70174- 1494 Jul, Mood disorder F39 ; PTSD (post-traumatic stress disorder) F43.10 and Borderline personality disorder F60.3 [place] [address] [address]- 4982 Jul, [place] [address] [id number] [place] [address] 84762- 8466 Jun, Anxiety F41.9 ; ADHD (attention deficit hyperactivity disorder) F90.9 ; Night terror F51.4 ; Bulimia F50.2 ; Severe episode of recurrent major depressive disorder, with psychotic features F33.3 and PTSD ( post-traumatic stress disorder) F43.10 [place] [address] [address]- 8768 Jun, Borderline personality disorder F60.3 ; Mood disorder F39 and PTSD (post-traumatic stress disorder) F43.10 [place] [address] [address]- 2988 Jun, Anxiety F41.9 [place] [address] [place] [address] 29261- 7022 Jun, Anxiety F41.9 ; ADHD (attention deficit hyperactivity disorder) F90.9 ; Night terror F51.4 ; Bulimia F50.2 ; Severe episode of recurrent major depressive disorder, with psychotic features F33.3 and PTSD ( post-traumatic stress disorder) F43.10 [place] [address] [address]- 3685 Jun, ADHD (attention deficit hyperactivity disorder) F90.9 ; Night terror F51.4 ; Bulimia F50.2 ; Anxiety F41.9 ; Severe episode of recurrent major depressive disorder, with psychotic features F33.3 and PTSD ( post-traumatic stress disorder) F43.10 [place] [address] [address]- 1690 May, Anxiety F41.9 [place] [address] [address]- 9900 May, PTSD (post-traumatic stress disorder) F43.10 and Borderline personality disorder F60.3 [facility] [address] [place] [address] 67077- 9676 Apr, [facility] [address] [place] [address] [id number] March, Dental examination Z01.20 and Dental caries K02.9 [facility] [address] [address] [id number] [place] [address] 47383- 8769 March, Dental examination Z01.20 [facility] [address] [id number] [place] [address] 83074- 0864 March, Tooth abscess K04.7 and Tooth pain K08.89 [facility] [address] [place] [address] [id number] [place] [address] 64971- 8583 March, Borderline personality disorder F60.3 [facility] [address] [place] [id number] [place] [address] 22453- 8037 March, ADHD (attention deficit hyperactivity disorder) F90.9 ; Night terror F51.4 ; Bulimia F50.2 and Anxiety F41.9 [facility] [address] [id number] [place] [address] 28769- 1503 Feb, Borderline personality disorder F60.3 ; ADHD (attention deficit hyperactivity disorder) F90.9 ; Anxiety F41.9 ; Bulimia F50.2 ; Obsessive-compulsive disorder, unspecified type F42.9 and Night terror F51.4 [facility] [address] [place] [address] 49632- 7176 Feb, [facility] [address] [address] [id number] [place] [address] 66643- 0928 Feb, [facility] [address] [id number] [place] [address] 06700- 9253 Jul, [facility] [id number] [place] [address] 94770- 9203 Jul, [facility] [address] [place] [address]- 4054 Jul, [facility] [place] [facility] [address] [id number] [place] 6961 Jul, [facility] [place] [facility] [address] [id number] [place] [address]- 5905 Jun, [facility] [place] [facility] [address] [id number] [place] [address]- 9070 Jun, [facility] [place] [facility] [address] [id number] [place] [address]- 9774 Jun, [facility] [place] [facility] [address] [id number] [place] [address]- 5101 Jun, [facility] [place] [facility] [address] [id number] [place] [address]- 2533 Apr, [facility] [place] [facility] [address] [id number] [place] [address]- 3732 Apr, [facility] [place] [facility] [address] [id number] [place] [address]- 2468 March, [facility] [place] [facility] [address] [id number] [place] [address]- 9161 March, [facility] [place] [facility] [address] [id number] [place] [address]- 7406 Jan, [facility] [place] [facility] [address] [id number] [place] [address]- 3920 Jan, [facility] [place] [facility] [address] [id number] [place] [address]- 4729 Jan, [facility] [place] [facility] [address] [id number] [place] [address]- 8403 Jan, [facility] [place] [facility] [address] [id number] [place] [address]- 4159 Jan, [facility] [place] [facility] [address] [id number] [place] [address]- 0766 Dec, [facility] [place] [facility] [address] [id number] [place] [address]- 9382 Dec, [facility] [place] [facility] [address] [id number] [place] [address]- 1557 Oct, [facility] [place] [facility] [address] [id number] [place] [address]- 2466 Oct, [facility] [place] [facility] [address] [id number] [place] [address]- 4856 Oct, [facility] [place] [facility] [address] [id number] [place] [address]- 2606 Oct, [facility] [place] [facility] [address] [id number] [place] [address]- 5591 Sep, [facility] [place] [facility] [address] [id number] [place] [address]- 2674 Sep, [facility] [place] [facility] [address] [id number] [place] [address]- 8324 Sep, [facility] [place] [facility] [address] [id number] [place] [address]- 5999 Aug, [facility] [place] [facility] [address] [id number] [place] [address]- 2190 Aug, [facility] [place] [facility] [address] [facility] [id number] [place] [address]- 5011 Aug, [facility] [place] [facility] [address] [id number] [address]- 5766 Aug, [facility] [place] [facility] [address] [id number] [place] [address]- 4340 Aug, [facility] [place] [facility] [address] [id number] [place] [address]- 7933 Aug, [facility] [place] [facility] [address] [id number] [address]- 1642 Aug, [facility] [place] [facility] [address] [id number], [place] [address]- 9497 Jul, [facility] [place] [facility] [address] [id number] [place] [address]- 5695 Jun, [facility] [place] [facility] [address] [id number] [place] [address]- 4934 Jun, [facility] [place] [facility] [address] [id number] [place] [address]- 9400 Jun, [facility] [place] [facility] [address] [id number] [place] [address]- 2739 Jun, [facility] [place] [facility] [address] [id number] [place] [address]- 3316 Jun, [facility] [place] [facility] [address] [id number] [place] [address]- 4319 Jun, [facility] [place] [facility] [address] [id number] [place] [address]- 8526 May, [facility] [place] [facility] [address] [id number] [place] [address]- 4307 May, [facility] [place] [facility] [address] [id number] [place] [address]- 5721 May, [facility] [place] [facility] [address] [id number] [place] [address]- 9350 May, [facility] [place] [facility] [address] [id number] [place] [address]- 7968 March, [facility] [place] [facility] [address] [id number] [place] [address]- 8089 March, [facility] [place] [facility] [address] [id number] [place] 8657 March, [facility] [place] [facility] [address] [id number] [place] [address]- 3652 Feb, [facility] [place] [facility] [address] [id number] [place] [address]- 7957 Feb, [facility] [place] [facility] [address] [id number] [place] [address]- 4288 10 Feb, 2013 [facility] [address] [id number] [place] [address]- 3804 Feb, [facility] [place] [facility] [address] [id number] [place] [address]- 0644 Jan, [facility] [address] [id number] [place] [address]- 9889 Jan, [facility] [address] [id number] [place] [address]- 0399 Jan, [facility] [address] [id number] [place] [address]- 7319 Dec, [facility] [address] [id number] [place] [address]- 6276 Dec, [facility] [address] [id number] [place] [address]- 4092 Dec, [facility] [address] [id number] [place] [address]- 8852 Dec, [facility] [address] [id number] [place] [address]- 5931 Dec, [facility] [address] [id number] [place] [address]- 1457 Nov, [facility] [address] [id number] [place] [address]- 7253 Nov, [facility] [address] [id number] [place] [address]- 8170 Nov, [facility] [place] [facility] [address] [id number] [place] [address]- 3707 Nov, [facility] [place] [facility] [address] [id number] [place] [address]- 4347 Oct, [facility] [place] [facility] [address] [id number] [place] [address]- 6590 Oct, [facility] [place] [facility] [address] [id number] [place] [address]- 1776 Oct, [facility] [place] [facility] [address] [id number] [place] [address]- 0726 Oct, [facility] [place] [facility] [address] [facility] [id number] [place] [address]- 3226 Oct, [facility] [place] [facility] [address] [id number] [place] [address] Oct, [facility] [place] [facility] [address] [id number] [place] [address] Oct, [facility] [place] [facility] [address] [id number] [place] [address] Oct, [facility] [place] [facility] [address] [id number] [place] [address] Oct, [facility] [place] [facility] [address] [id number] [place] [address] Oct, [facility] [place] [facility] [address] [id number] [place] [address] Oct, [facility] [place] [facility] [address] [id number] [place] [address] Oct, [facility] [place] [facility] [address] [id number], [place] [address] Oct, [facility] [place] [facility] [address] [id number], [place] [address] Sep, [facility] [place] [facility] [address] [id number] [place] [address] Sep, [facility] [place] [facility] [address] [id number] [place] [address] Sep, [facility] [place] [facility] [address] [id number] [place] [address] Sep, [facility] [place] [facility] [address] [id number] [place] [address]- [address] Sep, [facility] [place] [facility] [address] [id number] [place] [address] Sep, [facility] [place] [facility] [address] [id number] [place] [address] Sep, [facility] [place] [facility] [address] [id number] [place] [address] Sep, [facility] [place] [facility] [address] [id number] [place] [address] Sep, [facility] [place] [facility] [address] [id number] [place] [address]- [address] Sep, [facility] [place] [facility] [address] [id number] [place] [address]- [address] Sep, [facility] [place] [facility] [address] [id number] [place] [address] Sep, [facility] [place] [facility] [address] [id number] [place] [address] Aug, [facility] [place] [facility] [address] [id number] [place] [address] Aug, [facility] [place] [facility] [address] [facility] [id number] [place] [address]- [address] Aug, [facility] [place] [facility] [address] [id number] [place] [address] Aug, [facility] [place] [facility] [address] [id number], [place] [address] Aug, [facility] [place] [facility] [address] [id number] [place] [address] Aug, [facility] [place] [facility] [address] [facility] [id number] [place] [address] Aug, [facility] [place] [facility] [address] [id number] [place] [address] Aug, [facility] [place] [facility] [address] [id number] [place] [address] Aug, [facility] [place] [facility] [address] [id number] [place] [address] Aug, [facility] [place] [facility] [address] [id number] [place] [address] Aug, [facility] [place] [facility] [address] [id number] [place] [address] Aug, [facility] [place] [facility] [address] [id number] [place] [address] 28 Jul, 2012 [facility] [place] [facility] [address] [id number] [place] [address] 27 Jul, 2012 [facility] [place] [facility] [address] [id number] [place] [address] Jul, [facility] [place] [facility] [address] [id number] [place] [address] Jul, [facility] [place] [facility] [address] [id number] [place] [address] 05 Jul, 2012 [facility] [place] [facility] [address] [id number] [place] [address] Jul, [facility] [place] [facility] [address] [id number] [place] [address] Jun, [facility] [place] [facility] [address] [id number] [place] [address] Jun, [facility] [place] [facility] [address] [id number] [place] [address] Jun, [facility] [place] [facility] [address] [id number] [place] [address] May, [facility] [place] [facility] [address] [id number] [place] [address] May, [facility] [place] [facility] [address] [id number] [place] [address] 14 May, 2012 [facility] [place] [facility] [address] [id number] [place] [address] May, [facility] [place] [facility] [address] [id number] [place] [address] 06 May, 2012 [facility] [place] [facility] [address] [id number] [place] [address] 05 May, 2012 [facility] [place] [facility] [address] [id number] [place] [address]- [address] 30 Apr, 2012 [facility] [place] [facility] [address] [id number] [place] [address] 23 Feb, 2012 [facility] [place] [facility] [address] [id number] [place] [address] 18 Feb, 2012 [facility] [place] [facility] [address] [id number] [place] [address]- [address] 11 Feb, 2012 [facility] [place] [facility] [address] [id number] [place] [address] 10 Feb, 2012 [facility] [place] [facility] [address] [id number] [place] [address]- [address] 16 Jan, 2012 [facility] [place] [facility] [address] [id number] [place] [address] Jan, [facility] [place] [facility] [address] [id number] [place] [address]- [address]69 29 Dec, 2011 [facility] [place] [facility] [address] [id number] [place] [address] 28 Dec, 2011 [facility] [place] [facility] [address] [id number] [place] [address] Dec, [facility] [place] [facility] [address] [id number] [place] [address]- [address]35 14 Dec, 2011 [facility] [place] [facility] [address] [id number] [place] [address]- 39[address] 14 Dec, 2011 [facility] [place] [facility] [address] [id number] [place] [address]- [address] 13 Dec, 2011 [facility] [address] [id number] [place] [address] Dec, [facility] [place] [facility] [address] [id number] [place] [address] Dec, [facility] [address] [id number] [place] [address]- [address] Dec, [facility] [address] [id number] [place] [address] Nov, [facility] [address] [id number] [place] [address] Nov, [facility] [address] [id number] [place] [address] Nov, [facility] [address] [id number] [place] [address] Nov, [facility] [address] [id number] [place] [address] Nov, [facility] [address] [id number] [place] [address] Nov, [facility] [address] [id number] [place] [address] Nov, [facility] [address] [id number] [place] [address] Nov, [facility] [place] [facility] [address] [id number] [place] [address] Nov, [facility] [place] [facility] [address] [id number] [place] [address] Oct, [facility] [place] [facility] [address] [id number] [place] [address] Oct, [facility] [place] [facility] [address] [id number], [place] [address] 05 Oct, 2011 [facility] [place] [facility] [address] [id number] [place] [address]- [address] Oct, [facility] [place] [facility] [address] [id number] [place] [address]- [address] Oct, [facility] [place] [facility] [address] [id number] [place] [address]- [address] Oct, [facility] [place] [facility] [address] [id number] [place] [address]- [address] Sep, [facility] [place] [facility] [address] [id number] [place] [address] Aug, [facility] [place] [facility] [address] [id number] [place] [address]- [address]263 Jul, [facility] [place] [facility] [address] [id number], [place] [address] Nov, [facility] [place] [facility] [address] [id number] [place] [address]- [address] Nov, [facility] [place] [facility] [address] [id number], [place] [address] Oct, [facility] [place] [facility] [address] [id number], [place] [address] Sep, [facility] [place] [facility] [address] [id number], [place] [address] Sep, [facility] [place] [facility] [address] [id number], [place] [address] 18 Aug, 2010 [facility] [place] [facility] [address] [id number], [place] [address] 14 Aug, 2010 [facility] [place] [facility] [address] [id number], [place] [address] 14 Aug, 2010 [facility] [place] [facility] [address] [id number] [place] [address]- 0412 13 Feb, 2010 [facility] [place] [facility] [address] [id number] [address] Dec, [facility] [id number] [address] Oct, [facility] [id number] [address] Oct, [facility] [id number] [address] Oct, [facility] [id number], [place] [address] Sep, [facility] [id number] [place] [address]- [address] Sep, [facility] [id number], [place] [address] Sep, [facility] [id number], [place] [address] Aug, [facility] [address] [id number], [place] [address] Aug, IMMUNIZATIONS No Known Immunizations SOCIAL HISTORY Never Assessed REASON FOR VISIT Thyroid- Also has lower back pain and terrible cramping in the abdomen--, would like to try tramadol Robert Ward RN PLAN OF CARE VITAL SIGNS Height 63 in 2018-04-11 Weight 248 lbs 2018-04-11 Temperature 98.0 degrees Fahrenheit 2018-04-11 Heart Rate 90 bpm 2018-04-11 Respiratory Rate 18 2018-04-11 BMI 43.93 kg/m2 2018-04-11 Blood pressure systolic 116 mmHg 2018-04-11 Blood pressure diastolic 78 mmHg 2018-04-11 MEDICATIONS Medication Instructions Dosage Frequency Start Date End Date Duration Status Gabapentin 800 MG Orally 3 times a day 1 tablet 8h 90 days Active Desvenlafaxine Succinate ER 100 MG Orally in morning 1 tablet Active Tramadol HCl 50 mg Orally every 6 hrs 1 tablet as needed 6h March, Active Amitriptyline HCl 50 MG Orally Once a day at bedtime 1 tablet Feb, 30 days Active Diclofenac Sodium 75 MG Orally Twice a day as needed 1 tablet with food or milk March, 30 day(s) Active Voltaren 1 % Transdermal 2 times a day apply 4gm as needed to lower back as needed 12h 31 Nov, 2017 30 days Active BusPIRone HCl 10 mg Orally Three times a day 2 tablets 8h 12 Feb, 2018 30 days Active Quetiapine Fumarate 300 MG Orally Once a day at night 1 tablet 30 days Active Blende Carbonate 300 MG Orally twice a day 1 capsule 12h Active RESULTS No Results PROCEDURES No Known [...] EGD Hospitalization History mental health issues x2 [facility] [place] 2016 & 02/2017 Hospitalization History Surgery(s)/Childbirth(s)
--- OUTSIDE RECORDS SUMMARY | 2018-08-03 08:29 | XMS REPORT ---
Author Author RACHAEL CHEATHAM Organization [facility] Address [address] [place] [address] Care Team Providers Care Fluid Dynamicist Name Role Phone RACHAEL CHEATHAM Unavailable PROBLEMS Type Condition ICD9-CM Code [id number] Code Onset Dates Condition Status SNOMED Code Problem Adjustment disorder with mixed anxiety and depressed mood F43.23 Active 62584125 Problem Bipolar 1 disorder F31.9 Active 915114252 Problem Schizo affective schizophrenia F25.0 Active 824547672 Problem Dysmenorrhea N94.6 Active 826788562 Problem Morbid obesity due to excess calories E66.01 Active 405863245 Problem Cannabis use disorder, mild, abuse F12.10 Active 87852448 Problem Sciatica, unspecified side M54.30 Active 41898285 Problem Other chronic pain G89.29 Active 27990776 Problem Lumbago with sciatica, right side M54.41 Active 252934087 Problem Anxiety F41.9 Active 00419269 Problem PTSD (post-traumatic stress disorder) F43.10 Active 98890431 Problem Borderline personality disorder F60.3 Active 77446548 Problem Severe episode of recurrent major depressive disorder, with psychotic features F33.3 Active 39355175 Problem Night terror F51.4 Active 45354105 Problem Mood disorder F39 Active 80136175 ALLERGIES No Information ENCOUNTERS Encounter Location Date Diagnosis [facility] [id number] [address] Jul, [facility] [id number] [address] Jul, [facility] [id number] [address] Jun, [facility] [id number] [address] Jun, PTSD (post-traumatic stress disorder) F43.10 ; Mood disorder F39 ; Borderline personality disorder F60.3 and Cannabis use disorder, mild, abuse F12.10 [facility] [id number] [place] [address] 15269- 0400 Jun, [facility] [id number] [place] [address] 87809- 2817 Jun, PTSD (post-traumatic stress disorder) F43.10 [place] [address] [address]- 1797 Jun, [place] adverse reaction T43.595A and Sprain of anterior talofibular ligament of left ankle, initial encounter S93.492A [place] [id number] [place] [address] 19046- 5778 Jun, [place] [address] 61742- 9258 May, [place] [address] 7[address]99- 6469 May, Skin tags, multiple acquired L91.8 ; Dysmenorrhea N94.6 and Acute non-recurrent maxillary sinusitis J01.00 [place] [id number] [place] [address] 41040- 1359 May, PTSD (post-traumatic stress disorder) F43.10 [place] [id number] [place] [address] 83378- 5901 May, Other snf (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 [place] [id number] [place] [address] 28410- 1191 May, PTSD (post-traumatic stress disorder) F43.10 ; Mood disorder F39 ; Borderline personality disorder F60.3 and Cannabis use disorder, mild, abuse F12.10 [place] [address] [place] [address] 72815- 9923 May, BMI 40.0-44.9, adult Z68.41 [place] [id number] [place] [address] 09065- 0034 18 Apr, 2018 BMI 40.0-44.9, adult Z68.41 [place] [id number] [place] [address] 93250- 7908 14 Apr, 2018 Acute non-recurrent maxillary sinusitis J01.00 [place] [id number] [place] [address] 50416- 8022 11 Apr, 2018 PTSD (post-traumatic stress disorder) F43.10 ; Mood disorder F39 ; Borderline personality disorder F60.3 ; Cannabis use disorder, mild, abuse F12.10 and 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 [place] [id number] [place] [address] 89061- 5371 08 Apr, 2018 [place] [id number] [place] [address] 62839- 4041 07 Apr, 2018 Annual physical exam Z00.00 and High risk medication use Z79.899 [place] [id number] [place] [address] 35075- 6199 07 Apr, 2018 PTSD (post-traumatic stress disorder) F43.10 [place] [id number] [place] [address] 34827- 1818 Apr, [place] [id number] [place] [address] 51337- 1150 March, BMI 40.0-44.9, adult Z68.41 ; Morbid obesity due to excess calories E66.01 ; Lumbago with sciatica, right side M54.41 and Other chronic pain G89.29 [place] [id number] [place] [address] 29643- 7045 March, PTSD (post-traumatic stress disorder) F43.10 [place] [address] [place] [address] 73001- 6712 March, PTSD (post-traumatic stress disorder) F43.10 ; Mood disorder F39 ; Borderline personality disorder F60.3 and Cannabis use disorder, mild, abuse F12.10 [place] [address] [address]- 0600 Feb, [place] [address] [address] 95[address] Feb, [facility] [id number] [address] Feb, Breast cancer screening Z12.31 [place] [address] [place] [address] 31428- 7507 Feb, Mood disorder F39 and PTSD (post-traumatic stress disorder) F43.10 [place] [address] [place] [address] 78837- 8355 Feb, PTSD (post-traumatic stress disorder) F43.10 ; Mood disorder F39 ; Borderline personality disorder F60.3 and Cannabis use disorder, mild, abuse F12.10 [place] [address] [address] 4[address] Feb, Schizo affective schizophrenia F25.0 ; Adjustment disorder with mixed anxiety and depressed mood F43.23 ; Night terror F51.4 ; Anxiety F41.9 and Borderline personality disorder F60.3 [place] [address] [address]- 1696 Feb, [place] [address] [address] 51[address] Feb, Mood disorder F39 [place] [address] [address] 8[address] Feb, Annual physical exam Z00.00 ; BMI 40.0-44.9, adult Z68.41 and Nipple discharge N64.52 [place] [address] [address] 50[address] Jan, Schizo affective schizophrenia F25.0 ; Adjustment disorder with mixed anxiety and depressed mood F43.23 ; Night terror F51.4 ; Anxiety F41.9 and Borderline personality disorder F60.3 [place] [address] [place] [address] 23966- 3892 Jan, Mood disorder F39 ; PTSD (post-traumatic stress disorder) F43.10 ; Borderline personality disorder F60.3 and High risk medication use Z79.899 [facility] [address] 81282- 2161 Dec, Anxiety F41.9 and Borderline personality disorder F60.3 [place] [address] 51305- 7466 Dec, [place] [address] 73006- 8810 Dec, Anxiety F41.9 and Borderline personality disorder F60.3 [place] [address] 71977- 0516 Dec, [place] [address] 33411- 0315 Dec, [place] [address] 14275- 1755 Nov, Acute non-recurrent maxillary sinusitis J01.00 ; Mood disorder F39 and Sciatica, unspecified side M54.30 [place] [id number] [place] [address] 07146- 5585 Nov, Mood disorder F39 ; PTSD (post-traumatic stress disorder) F43.10 and Borderline personality disorder F60.3 [place] [id number] [place] [address] 81209- 4057 Nov, Anxiety F41.9 and Borderline personality disorder F60.3 [facility] [id number] [place] [address] 96438- 6585 Nov, [facility] [address] [place] [address] 58437- 2531 Nov, Anxiety F41.9 and Sciatica, unspecified side M54.30 [facility] [id number] [place] [address] 79778- 9854 Oct, Anxiety F41.9 [facility] [address] [place] [address] 94026- 3103 Oct, Mood disorder F39 ; PTSD (post-traumatic stress disorder) F43.10 ; Borderline personality disorder F60.3 and High risk medication use Z79.899 [facility] [id number] [place] [address] [id number] 11 Oct, 2017 Dental caries K02.9 and Dental examination Z01.20 [facility] [address] 26369- 7910 Sep, Dysuria R30.0 and Abdominal pain, right lower quadrant R10.31 [place] [address] 73638- 6674 Aug, Mood disorder F39 ; PTSD (post-traumatic stress disorder) F43.10 and Borderline personality disorder F60.3 [facility] [id number] [place] [address] 56207- 6154 Aug, [facility] [id number] [place] [address] 48146- 4649 Aug, [facility] [id number] [place] [address] 82280- 4709 Aug, Severe episode of recurrent major depressive disorder, with psychotic features F33.3 ; PTSD (post-traumatic stress disorder) F43.10 ; Adjustment disorder with mixed anxiety and depressed mood F43.23 and Borderline personality disorder F60.3 [facility] [address] [place] [address] 67002- 1167 Aug, Mood disorder F39 ; PTSD (post-traumatic stress disorder) F43.10 and Borderline personality disorder F60.3 [facility] [id number] [place] [address] 16961- 2413 Aug, [facility] [address] [facility] [id number] [address] 2546 Aug, Bipolar 1 disorder F31.9 and Schizo affective schizophrenia F25.0 [facility] [address] [facility] [id number] [address] 2546 Aug, Mood disorder F39 [facility] [id number] [address] 2546 Aug, Bipolar 1 disorder F31.9 and Schizo affective schizophrenia F25.0 [facility] [address] [facility] [id number] [address] 2546 Aug, Bipolar 1 disorder F31.9 and Schizo affective schizophrenia F25.0 [facility] [id number] [address] 2546 Aug, [facility] [id number] [place] [address] 53529 2546 Aug, PTSD (post-traumatic stress disorder) F43.10 and Borderline personality disorder F60.3 [facility] [id number] [address] 2546 Aug, [facility] [id number] [place] [address] 66417 2546 Aug, Mood disorder F39 ; PTSD (post-traumatic stress disorder) F43.10 ; Borderline personality disorder F60.3 and Adjustment disorder with mixed anxiety and depressed mood F43.23 [facility] [id number] [address] 2546 Jul, [facility] [address] [facility] [id number] [address] 2546 Jul, Mood disorder F39 ; PTSD (post-traumatic stress disorder) F43.10 and Borderline personality disorder F60.3 [facility] [id number] [address] 2546 Jul, [facility] [address] [address]- 2548 Jun, Anxiety F41.9 ; ADHD (attention deficit hyperactivity disorder) F90.9 ; Night terror F51.4 ; Bulimia F50.2 ; Severe episode of recurrent major depressive disorder, with psychotic features F33.3 and PTSD ( post-traumatic stress disorder) F43.10 [facility] [address] [place] [address] 67181- 7500 Jun, Borderline personality disorder F60.3 ; Mood disorder F39 and PTSD (post-traumatic stress disorder) F43.10 [facility] [address] [place] [address] 07644- 1342 Jun, Anxiety F41.9 [facility] [id number] [place] [address] 36729- 4190 Jun, Anxiety F41.9 ; ADHD (attention deficit hyperactivity disorder) F90.9 ; Night terror F51.4 ; Bulimia F50.2 ; Severe episode of recurrent major depressive disorder, with psychotic features F33.3 and PTSD ( post-traumatic stress disorder) F43.10 [facility] [address] [place] [address] 54141- 9210 Jun, ADHD (attention deficit hyperactivity disorder) F90.9 ; Night terror F51.4 ; Bulimia F50.2 ; Anxiety F41.9 ; Severe episode of recurrent major depressive disorder, with psychotic features F33.3 and PTSD ( post-traumatic stress disorder) F43.10 [facility] [address] [place] [address] 38098- 0943 May, Anxiety F41.9 [facility] [address] [place] [address] 78032- 6740 May, PTSD (post-traumatic stress disorder) F43.10 and Borderline personality disorder F60.3 [facility] [address] [address]- 3267 Apr, [facility] [address] [place] [address] [id number] March, Dental examination Z01.20 and Dental caries K02.9 [facility] [id number] [place] [address] 78200- 8601 March, Dental examination Z01.20 [facility] [address] [place] [address] 29642- 0763 March, Tooth abscess K04.7 and Tooth pain K08.89 [facility] [id number] [place] [address] 53433- 5171 March, Borderline personality disorder F60.3 [facility] [id number] [place] [address] 43343- 7589 March, ADHD (attention deficit hyperactivity disorder) F90.9 ; Night terror F51.4 ; Bulimia F50.2 and Anxiety F41.9 [place] [id number] [place] [address] 82979- 5868 Feb, Borderline personality disorder F60.3 ; ADHD (attention deficit hyperactivity disorder) F90.9 ; Anxiety F41.9 ; Bulimia F50.2 ; Obsessive-compulsive disorder, unspecified type F42.9 and Night terror F51.4 [facility] [address] [place] [address] 44364- 2070 Feb, [facility] [address] [address]- 6471 Feb, [facility] [id number] [place] [address] 11584- 1733 Jul, [facility] [address] [place] [address] 64467- 0833 Jul, [facility] [address] [place] [address] 96912- 8909 Jul, [facility] [address] [address]- 7633 Jul, [facility] [id number] [place] [address]- 9393 Jun, [facility] [address] [id number] [place] [address]- 9185 Jun, [facility] [place] [facility] [address] [id number] [place] [address]- 2885 Jun, [facility] [address] [id number] [place] [address]- 4536 Jun, [facility] [place] [facility] [address] [id number] [place] [address]- 6152 Apr, [facility] [place] [facility] [address] [id number] [place] [address]- 3075 Apr, [facility] [place] [facility] [address] [id number] [place] [address]- 0480 March, [facility] [place] [facility] [address] [id number] [place] [address]- 4521 March, [facility] [address] [id number] [place] [address]- 4280 Jan, [facility] [place] [facility] [address] [id number] [place] [address]- 8962 Jan, [facility] [address] [id number] [place] [address]- 4231 Jan, [facility] [place] [facility] [address] [id number] [place] [address]- 9208 Jan, [facility] [place] [facility] [address] [id number] [place] [address]- 4841 Jan, [facility] [place] [facility] [address] [id number] [place] [address]- 0947 Dec, [facility] [place] [facility] [address] [id number] [place] [address]- 6316 Dec, [facility] [place] [facility] [address] [id number] [place] [address]- 9616 Oct, [facility] [place] [facility] [address] [id number] [place] [address]- 5327 Oct, [facility] [place] [facility] [address] [id number] [place] [address]- 4052 Oct, [facility] [place] [facility] [address] [id number] [place] [address]- 6428 Oct, [facility] [place] [facility] [address] [id number] [place] [address]- 9765 Sep, [facility] [place] [facility] [address] [id number] [place] [address]- 7916 Sep, [facility] [place] [facility] [address] [id number] [place] [address]- 8337 Sep, [facility] [place] [facility] [address] [id number] [place] [address]- 0588 Aug, [facility] [place] [facility] [address] [id number] [place] [address]- 0748 Aug, [facility] [place] [facility] [address] [id number] [place] [address]- 6154 Aug, [facility] [place] [facility] [address] [id number] [address]- 9197 Aug, [facility] [place] [facility] [address] [id number] [address]- 3553 Aug, [facility] [place] [facility] [address] [id number] [address]- 6385 Aug, [facility] [place] [facility] [address] [id number] [place] [address]- 1158 Aug, [facility] [place] [facility] [address] [id number] [address]- 7256 Jul, [facility] [place] [facility] [address] [id number] [place] [address]- 9201 Jun, [facility] [place] [facility] [address] [id number] [place] [address]- 0188 Jun, [facility] [address] [id number] [place] [address]- 7177 Jun, [facility] [address] [id number] [place] [address]- 7098 Jun, [facility] [address] [id number] [place] [address]- 8480 Jun, [facility] [address] [id number] [place] [address]- 6856 Jun, [facility] [address] [id number] [place] [address]- 0076 May, [facility] [address] [id number] [place] [address]- 7826 May, [facility] [address] [id number] [place] [address]- 1140 May, [facility] [address] [id number] [place] [address]- 6968 May, [facility] [address] [id number] [place] [address]- 9700 March, [facility] [address] [id number] [place] [address]- 2486 March, [facility] [address] [id number] [place] [address]- 4601 March, [facility] [address] [id number] [place] [address]- 6883 Feb, [facility] [place] [facility] [address] [id number] [place] [address]- 7883 Feb, [facility] [place] [facility] [address] [id number] [place] [address]- 7628 Feb, [facility] [address] [id number] [place] [address]- 7813 Feb, [facility] [address] [id number] [place] [address]- 0189 27 Jan, 2013 [facility] [place] [facility] [address] [id number] [place] [address]- 9629 20 Jan, 2013 [facility] [place] [facility] [address] [id number] [place] [address]- 7423 Jan, [facility] [place] [facility] [address] [id number] [place] [address]- 8707 27 Dec, 2012 [facility] [place] [facility] [address] [id number] [place] [address]- 0174 14 Dec, 2012 [facility] [place] [facility] [address] [id number] [place] [address]- 2190 Dec, [facility] [address] [id number] [place] [address]- 0853 05 Dec, 2012 [facility] [address] [id number] [place] [address]- 3815 04 Dec, 2012 [facility] [place] [facility] [address] [id number] [place] [address]- 2330 Nov, [facility] [address] [id number] [place] [address]- 9235 Nov, [facility] [place] [facility] [address] [id number] [place] [address]- 3581 Nov, [facility] [place] [facility] [address] [id number] [place] [address]- 1663 Nov, [facility] [place] [facility] [address] [id number] [place] [address]- 0913 Oct, [facility] [place] [facility] [address] [id number] [place] [address]- 8646 Oct, [facility] [place] [facility] [address] [id number] [place] [address]- 0353 Oct, [facility] [place] [facility] [address] [id number] [place] [address]- 2880 Oct, [facility] [place] [facility] [address] [id number] [place] [address]- 0496 Oct, [facility] [place] [facility] [address] [id number] [place] [address]- 3796 Oct, [facility] [place] [facility] [address] [id number] [place] [address]- 1616 Oct, [facility] [place] [facility] [address] [id number] [place] [address]- 3186 Oct, [facility] [place] [facility] [address] [id number] [place] [address]- 4196 Oct, [facility] [place] [facility] [address] [id number] [place] [address] Oct, [facility] [place] [facility] [address] [id number] [place] [address] Oct, [facility] [place] [facility] [address] [id number] [place] [address] Oct, [facility] [place] [facility] [address] [id number] [place] [address] Oct, [facility] [place] [facility] [address] [id number] [place] [address] Sep, [facility] [place] [facility] [address] [id number] [place] [address] Sep, [facility] [place] [facility] [address] [id number] [place] [address] Sep, [facility] [place] [facility] [address] [id number] [place] [address] Sep, [facility] [place] [facility] [address] [id number] [place] [address] Sep, [facility] [place] [facility] [address] [facility] [id number] [place] [address] Sep, [facility] [place] [facility] [address] [id number] [place] [address] Sep, [facility] [place] [facility] [address] [id number] [place] [address] Sep, [facility] [place] [facility] [address] [id number] [place] [address] Sep, [facility] [place] [facility] [address] [id number] [place] [address] Sep, [facility] [place] [facility] [address] [id number] [place] [address] Sep, [facility] [place] [facility] [address] [id number] [place] [address] Sep, [facility] [place] [facility] [address] [id number] [place] [address] Aug, [facility] [place] [facility] [address] [id number] [place] [address] Aug, [facility] [place] [facility] [address] [id number] [place] [address] Aug, [facility] [place] [facility] [address] [id number] [place] [address] Aug, [facility] [place] [facility] [address] [facility] [id number] [place] [address] Aug, [facility] [place] [facility] [address] [id number] [place] [address] Aug, [facility] [place] [facility] [address] [id number] [place] [address] Aug, [facility] [place] [facility] [address] [id number] [place] [address] Aug, [facility] [place] [facility] [address] [id number] [place] [address]- [address] Aug, [facility] [place] [facility] [address] [id number] [place] [address] Aug, [facility] [place] [facility] [address] [id number] [place] [address] Aug, [facility] [place] [facility] [address] [address] [id number] [place] [address] Aug, [facility] [place] [facility] [address] [id number] [place] [address] 28 Jul, 2012 [facility] [place] [facility] [address] [id number] [place] [address] 27 Jul, 2012 [facility] [place] [facility] [address] [id number] [place] [address] Jul, [facility] [place] [facility] [address] [id number] [place] [address] Jul, [facility] [place] [facility] [address] [id number] [place] [address] Jul, [facility] [place] [facility] [address] [id number] [place] [address] Jul, [facility] [place] [facility] [address] [id number] [place] [address] Jun, [facility] [place] [facility] [address] [id number] [place] [address] Jun, [facility] [place] [facility] [address] [id number] [place] [address] Jun, [facility] [place] [facility] [address] [id number] [address] May, [facility] [place] [facility] [address] [id number] [place] [address] May, [facility] [place] [facility] [address] [id number] [place] [address] May, [facility] [place] [facility] [address] [id number] [place] [address] May, [facility] [place] [facility] [address] [id number] [place] [address] 06 May, 2012 [facility] [place] [facility] [address] [id number] [place] [address] 05 May, 2012 [facility] [place] [facility] [address] [id number] [place] [address] 30 Apr, 2012 [facility] [place] [facility] [address] [facility] [id number] [place] [address] 23 Feb, 2012 [facility] [place] [facility] [address] [id number] [place] [address] 18 Feb, 2012 [facility] [place] [facility] [address] [id number] [place] [address] 6867 11 Feb, 2012 [facility] [place] [facility] [address] [facility] [id number] [place] [address] 10 Feb, 2012 [facility] [place] [facility] [id number] [place] [address] 16 Jan, 2012 [facility] [place] [facility] [address] [facility] [id number] [place] [address] 12 Jan, 2012 [facility] [place] [facility] [id number] [place] [address] 29 Dec, 2011 [facility] [place] [facility] [id number] [place] [address] 28 Dec, 2011 [facility] [place] [facility] [id number] [place] [address] 21 Dec, 2011 [facility] [place] [facility] [address] [facility] [id number] [place] [address]574 14 Dec, 2011 [facility] [place] [facility] [address] [id number] [place] [address] 8230 14 Dec, 2011 [facility] [place] [facility] [address] [facility] [id number] [place] [address] 13 Dec, 2011 [facility] [place] [facility] [id number] [place] [address] Dec, [facility] [address] [id number] [place] [address] Dec, [facility] [place] [facility] [address] [id number] [place] [address] 9436 Dec, [facility] [address] [id number] [place] [address] 74[address] Nov, [facility] [place] [facility] [address] [id number] [place] [address] Nov, [facility] [address] [id number] [place] [address] Nov, [facility] [place] [facility] [address] [id number] [place] [address] 9041 Nov, [facility] [place] [facility] [address] [id number] [place] [address]691 Nov, [facility] [address] [id number] [place] [address] Nov, [facility] [address] [id number] [place] [address] Nov, [facility] [address] [id number] [place] [address]- [address] Nov, [facility] [address] [id number] [place] [address] Nov, [facility] [place] [facility] [address] [id number] [place] [address] Oct, [facility] [place] [facility] [address] [id number] [place] [address]646 Oct, [facility] [place] [facility] [address] [id number] [place] [address]246 Oct, [facility] [place] [facility] [address] [facility] [id number] [place] [address] 6369 Oct, [facility] [place] [facility] [address] [id number] [place] [address]- 4086 05 Oct, 2011 [facility] [address] [id number] [place] [address]- 6673 Oct, [facility] [place] [facility] [address] [id number] [place] [address]- 9037 02 Sep, 2011 [facility] [address] [id number] [place] [address]- 1168 19 Aug, 2011 [facility] [place] [facility] [address] [id number] [place] [address] 7713 Jul, [facility] [place] [facility] [address] [id number] [place] [address]- 6393 17 Nov, 2010 [facility] [place] [facility] [address] [id number] [place] [address]- 3608 Nov, [facility] [address] [id number] [place] [address]- [address]238 23 Oct, 2010 [facility] [place] [facility] [address] [id number] [place] [address]- 7478 10 Sep, 2010 [facility] [place] [facility] [address] [id number] [place] [address] Sep, [facility] [place] [facility] [address] [facility] [id number] [place] [address] 5347 18 Aug, 2010 [facility] [place] [facility] [address] [id number] [place] [address]- 8530 14 Aug, 2010 [facility] [place] [facility] [address] [id number] [place] [address]- 7198 14 Aug, 2010 [facility] [place] [facility] [address] [id number] [place] [address]- 8030 13 Feb, 2010 [facility] [place] [facility] [address] [id number] [place] [address]- [address] 10 Dec, 2009 [facility] [place] [facility] [address] [id number] [place] [address]- 289[address] Oct, [facility] [address] [id number] [address] Oct, [facility] [id number] [address] Oct, [facility] [id number] [address] Sep, [facility] [id number] [place] [address] Sep, [facility] [id number] [address] Sep, [facility] [id number] [address] Aug, [facility] [address] [id number] [address] Aug, IMMUNIZATIONS No Known Immunizations SOCIAL HISTORY Never Assessed REASON FOR VISIT PLAN OF CARE VITAL SIGNS MEDICATIONS Medication Instructions Dosage Frequency Start Date End Date Duration Status Atorvastatin Calcium 20 mg Orally Once a day 1 tablet 24h Apr, 30 day(s) Active RESULTS No Results PROCEDURES [...] mental health issues x2 Ward Unit in [place] 2016 & 02/2017 Hospitalization History Surgery(s)/Childbirth(s)
--- OUTSIDE RECORDS SUMMARY | 2018-08-03 08:29 | XMS REPORT ---
Author Author TESS CRAIG Organization [facility] Address [address] [place] [address] Care Team Providers Care Toe Closing Machine Tender Name Role Phone RAFATESS Unavailable PROBLEMS Type Condition ICD9-CM Code [id number] Code Onset Dates Condition Status SNOMED Code Problem Adjustment disorder with mixed anxiety and depressed mood F43.23 Active 07170601 Problem Bipolar 1 disorder F31.9 Active 349265873 Problem Schizo affective schizophrenia F25.0 Active 721177999 Problem Dysmenorrhea N94.6 Active 316997048 Problem Morbid obesity due to excess calories E66.01 Active 535525665 Problem Cannabis use disorder, mild, abuse F12.10 Active 39975987 Problem Sciatica, unspecified side M54.30 Active 84908925 Problem Other chronic pain G89.29 Active 51920570 Problem Lumbago with sciatica, right side M54.41 Active 495502974 Problem Anxiety F41.9 Active 69371201 Problem PTSD (post-traumatic stress disorder) F43.10 Active 49328348 Problem Borderline personality disorder F60.3 Active 54912338 Problem Severe episode of recurrent major depressive disorder, with psychotic features F33.3 Active 31536081 Problem Night terror F51.4 Active 43259956 Problem Mood disorder F39 Active 11681981 ALLERGIES Substance Reaction Event Type Date Status Pseudoephedrine HCl ER unknown Drug Allergy March, Active Phenytoin rash Drug Allergy March, Active Penicillamine anaphylaxis Drug Allergy March, Active Cephalexin anaphylaxis Drug Allergy March, Active Albuterol unknown Drug Allergy March, Active ENCOUNTERS Encounter Location Date Diagnosis [facility] [address] [facility] [id number], [place] [address] Jul, [facility] [address] [facility] [id number], [place] [address] Jun, PTSD (post-traumatic stress disorder) F43.10 ; Mood disorder F39 ; Borderline personality disorder F60.3 and Cannabis use disorder, mild, abuse F12.10 [place] [address] [address]- [address] Jun, [facility] [address] [place] [id number] [place] [address] 92563- 8508 Jun, PTSD (post-traumatic stress disorder) F43.10 [place] [address] 536089- 9971 Jun, [place] adverse reaction T43.595A and Sprain of anterior talofibular ligament of left ankle, initial encounter S93.492A [place] [address] 90959- 0806 Jun, [place] [address] 6[address]03- 7914 May, [place] [address] 897995- 6202 May, Skin tags, multiple acquired L91.8 ; Dysmenorrhea N94.6 and Acute non-recurrent maxillary sinusitis J01.00 [place] [address] [place] [id number] [place] [address] 36562- 7548 May, PTSD (post-traumatic stress disorder) F43.10 [place] [address] [place] [id number] [place] [address] 77558- 8215 May, Other prison (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 [place] [address] 12151- 0628 May, PTSD (post-traumatic stress disorder) F43.10 ; Mood disorder F39 ; Borderline personality disorder F60.3 and Cannabis use disorder, mild, abuse F12.10 [place] [address] [place] [id number] [place] [address] 96529- 0066 May, BMI 40.0-44.9, adult Z68.41 [place] [address] [place] [id number] [place] [address] 42700- 0747 18 Apr, 2018 BMI 40.0-44.9, adult Z68.41 [place] [address] [place] [id number] [place] [address] 08772- 2520 14 Apr, 2018 Acute non-recurrent maxillary sinusitis J01.00 [place] [address] [place] [id number] [place] [address] 28146- 2490 11 Apr, 2018 PTSD (post-traumatic stress disorder) F43.10 ; Mood disorder F39 ; Borderline personality disorder F60.3 ; Cannabis use disorder, mild, abuse F12.10 and 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 terminal 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 [place] [address] [place] [id number] [place] [address] 96154- 0960 08 Apr, 2018 [place] [address] [place] [id number] [place] [address] 15340- 8259 07 Apr, 2018 Annual physical exam Z00.00 and High risk medication use Z79.899 [place] [address] [place] [id number] [place] [address] 88762- 2989 07 Apr, 2018 PTSD (post-traumatic stress disorder) F43.10 [place] [address] [place] [id number] [place] [address] 85930- 4004 Apr, [place] [address] [place] [id number] [place] [address] 33572- 6495 March, BMI 40.0-44.9, adult Z68.41 ; Morbid obesity due to excess calories E66.01 ; Lumbago with sciatica, right side M54.41 and Other chronic pain G89.29 [place] [address] [place] [id number] [place] [address] 46297- 3217 March, PTSD (post-traumatic stress disorder) F43.10 [place] [id number] [place] [address] 42039- 2426 March, PTSD (post-traumatic stress disorder) F43.10 ; Mood disorder F39 ; Borderline personality disorder F60.3 and Cannabis use disorder, mild, abuse F12.10 [place] [address], [place] [address]- 6530 Feb, [place] [address], [place] [address] 9350 Feb, [facility] [id number] [place] [address] Feb, Breast cancer screening Z12.31 [place] [address] [place] [address] 43239- 8610 Feb, Mood disorder F39 and PTSD (post-traumatic stress disorder) F43.10 [place] [address] [place] [address] 64120- 5705 Feb, PTSD (post-traumatic stress disorder) F43.10 ; Mood disorder F39 ; Borderline personality disorder F60.3 and Cannabis use disorder, mild, abuse F12.10 [place] [address] [place] [address] 59374- 6096 Feb, Schizo affective schizophrenia F25.0 ; Adjustment disorder with mixed anxiety and depressed mood F43.23 ; Night terror F51.4 ; Anxiety F41.9 and Borderline personality disorder F60.3 [place] [address], [place] [address]- 1229 Feb, [place] [address] [place] [address] 24013- 1247 Feb, Mood disorder F39 [place] [address], [place] [address] 480[address] Feb, Annual physical exam Z00.00 ; BMI 40.0-44.9, adult Z68.41 and Nipple discharge N64.52 [place] [address], [place] [address] 1[address] Jan, Schizo affective schizophrenia F25.0 ; Adjustment disorder with mixed anxiety and depressed mood F43.23 ; Night terror F51.4 ; Anxiety F41.9 and Borderline personality disorder F60.3 [facility] [address] [place] [id number] [place] [address] 61153- 8319 Jan, Mood disorder F39 ; PTSD (post-traumatic stress disorder) F43.10 ; Borderline personality disorder F60.3 and High risk medication use Z79.899 [facility] [address] [place] [id number] [place] [address] 54306- 1389 Dec, Anxiety F41.9 and Borderline personality disorder F60.3 [place] [address] [place] [id number] [place] [address] 18200- 7026 Dec, [place] [address] 95191- 9026 Dec, Anxiety F41.9 and Borderline personality disorder F60.3 [place] [address] [place] [id number] [place] [address] 06411- 6199 Dec, [facility] [address] [place] [id number] [place] [address] 83860- 7786 Dec, [place] [address] [place] [id number] [place] [address] 17884- 0920 Nov, Acute non-recurrent maxillary sinusitis J01.00 ; Mood disorder F39 and Sciatica, unspecified side M54.30 [place] [address] [place] [id number] [place] [address] 41336- 8732 Nov, Mood disorder F39 ; PTSD (post-traumatic stress disorder) F43.10 and Borderline personality disorder F60.3 [place] [address] [place] [id number] [place] [address] 19773- 7231 Nov, Anxiety F41.9 and Borderline personality disorder F60.3 [facility] [address] [place] [id number] [place] [address] 59258- 7973 Nov, [facility] [address] [place] [id number] [place] [address] 73990- 5096 02 Robert, 2018 Anxiety F41.9 and Sciatica, unspecified side M54.30 [facility] [address] [place] [id number] [place] [address] 09244- 9073 Oct, Anxiety F41.9 [facility] [address] [place] [id number] [place] [address] 91558- 2026 Oct, Mood disorder F39 ; PTSD (post-traumatic stress disorder) F43.10 ; Borderline personality disorder F60.3 and High risk medication use Z79.899 [facility] [address] [place] [id number] [place] [address] [id number] 11 Oct, 2017 Dental caries K02.9 and Dental examination Z01.20 [place] [address] [place] [id number] [place] [address] 79488- 3575 Sep, Dysuria R30.0 and Abdominal pain, right lower quadrant R10.31 [place] [address] 64973- 4337 Aug, Mood disorder F39 ; PTSD (post-traumatic stress disorder) F43.10 and Borderline personality disorder F60.3 [place] [address] [place] [id number] [place] [address] 98846- 5521 Aug, [place] [address] [place] [id number] [place] [address] 93539- 9492 Aug, [place] [address] [place] [id number] [place] [address] 88312- 7858 Aug, Severe episode of recurrent major depressive disorder, with psychotic features F33.3 ; PTSD (post-traumatic stress disorder) F43.10 ; Adjustment disorder with mixed anxiety and depressed mood F43.23 and Borderline personality disorder F60.3 [facility] [address] [place] [id number] [place] [address] 65490- 0385 Aug, Mood disorder F39 ; PTSD (post-traumatic stress disorder) F43.10 and Borderline personality disorder F60.3 [place] [address] [place] [id number] [place] [address] 85259- 1715 Aug, [facility] [address] [facility] [id number], [place] [address] 2544 Aug, Bipolar 1 disorder F31.9 and Schizo affective schizophrenia F25.0 [facility] [address] [facility] [id number], [place] [address] 2546 Aug, Mood disorder F39 [facility] [address] [place] [id number] [place] [address] 65122 2546 Aug, Bipolar 1 disorder F31.9 and Schizo affective schizophrenia F25.0 [facility] [address] [place] [id number], [place] [address] 2546 Aug, Bipolar 1 disorder F31.9 and Schizo affective schizophrenia F25.0 [facility] [address] [place] [id number], [place] [address]- 8186 Aug, [facility] [address] [place] [id number] [place] [address] 54149- 9137 Aug, PTSD (post-traumatic stress disorder) F43.10 and Borderline personality disorder F60.3 [facility] [address], [place] [address]- 9106 Aug, [facility] [address] [place] [id number], [place] [address]- 0598 Aug, Mood disorder F39 ; PTSD (post-traumatic stress disorder) F43.10 ; Borderline personality disorder F60.3 and Adjustment disorder with mixed anxiety and depressed mood F43.23 [facility] [address] [place] [id number], [place] [address]- 7936 Jul, [facility] [address] [place] [id number], [place] [address] 2546 Jul, Mood disorder F39 ; PTSD (post-traumatic stress disorder) F43.10 and Borderline personality disorder F60.3 [facility] [address] [place] [id number], [place] [address]- 1426 Jul, [facility] [address], [place] [address]- 4851 Jun, Anxiety F41.9 ; ADHD (attention deficit hyperactivity disorder) F90.9 ; Night terror F51.4 ; Bulimia F50.2 ; Severe episode of recurrent major depressive disorder, with psychotic features F33.3 and PTSD ( post-traumatic stress disorder) F43.10 [facility] [address], [place] [address]- 0601 Jun, Borderline personality disorder F60.3 ; Mood disorder F39 and PTSD (post-traumatic stress disorder) F43.10 [facility] [address] [place] [address] 79876- 3635 Jun, Anxiety F41.9 [facility] [address] [place] [address] 80191- 5541 Jun, Anxiety F41.9 ; ADHD (attention deficit hyperactivity disorder) F90.9 ; Night terror F51.4 ; Bulimia F50.2 ; Severe episode of recurrent major depressive disorder, with psychotic features F33.3 and PTSD ( post-traumatic stress disorder) F43.10 [facility] [address] [place] [address] 51189- 0596 Jun, ADHD (attention deficit hyperactivity disorder) F90.9 ; Night terror F51.4 ; Bulimia F50.2 ; Anxiety F41.9 ; Severe episode of recurrent major depressive disorder, with psychotic features F33.3 and PTSD ( post-traumatic stress disorder) F43.10 [facility] [address], [place] [address]- 1841 May, Anxiety F41.9 [facility] [address] [place] [address] 18416- 6316 May, PTSD (post-traumatic stress disorder) F43.10 and Borderline personality disorder F60.3 [facility] [address], [place] [address]- 8632 Apr, [facility] [address] [address] March, Dental examination Z01.20 and Dental caries K02.9 [facility] [address] [place] [id number] [place] [address] 09965- 9630 March, Dental examination Z01.20 [facility] [address] [place] [id number] [place] [address] 41989- 0288 March, Tooth abscess K04.7 and Tooth pain K08.89 [facility] [address] [place] [id number] [place] [address] 77734- 1477 March, Borderline personality disorder F60.3 [place] [address] 29101- 8234 March, ADHD (attention deficit hyperactivity disorder) F90.9 ; Night terror F51.4 ; Bulimia F50.2 and Anxiety F41.9 [place] [address] [place] [id number] [place] [address] 40462- 5508 Feb, Borderline personality disorder F60.3 ; ADHD (attention deficit hyperactivity disorder) F90.9 ; Anxiety F41.9 ; Bulimia F50.2 ; Obsessive-compulsive disorder, unspecified type F42.9 and Night terror F51.4 [facility] [address] [place] [address] 42818- 3972 Feb, [facility] [address] [place] [address] 94370- 5180 Feb, [facility] [address] [place] [id number] [place] [address] 21845- 2534 Jul, [facility] [address] [place] [id number] [place] [address] 49650- 7469 Jul, [facility] [address] [place] [id number] [place] [address] 23159- 1976 Jul, [facility] [id number] [place] [address] 04524- 5854 Jul, [facility] [address] [place] [id number] [place] [address]- 8208 Jun, [facility] [place] [facility] [address] [id number] [place] [address]- 3278 Jun, [facility] [place] [facility] [address] [id number] [place] [address]- 9766 Jun, [facility] [place] [facility] [address] [id number] [place] [address]- 4446 Jun, [facility] [place] [facility] [address] [id number] [place] [address]- 6373 Apr, [facility] [place] [facility] [address] [id number] [place] 1641 Apr, [facility] [place] [facility] [address] [id number] [place] [address]- 5298 March, [facility] [place] [facility] [address] [id number] [place] [address]- 2381 March, [facility] [place] [facility] [address] [id number] [place] [address]- 9987 Jan, [facility] [place] [facility] [address] [id number] [place] [address]- 9250 Jan, [facility] [place] [facility] [address] [id number] [place] [address]- 4346 Jan, [facility] [place] [facility] [address] [id number] [place] [address]- 5573 Jan, [facility] [place] [facility] [address] [id number] [place] [address]- 2222 Jan, [facility] [place] [facility] [address] [id number] [place] [address]- 2802 Dec, [facility] [place] [facility] [address] [id number] [place] [address]- 3506 Dec, [facility] [place] [facility] [address] [id number] [place] [address]- 6501 Oct, [facility] [place] [facility] [address] [id number] [place] [address]- 1011 Oct, [facility] [place] [facility] [address] [id number] [place] [address]- 1832 Oct, [facility] [place] [facility] [address] [id number] [place] [address]- 0333 Oct, [facility] [place] [facility] [address] [id number] [place] [address]- 0273 Sep, [facility] [place] [facility] [address] [id number] [place] [address]- 7549 Sep, [facility] [place] [facility] [address] [id number] [place] [address]- 2775 Sep, [facility] [place] [facility] [address] [id number] [place] [address]- 9950 Aug, [facility] [place] [facility] [address] [id number], [place] [address]- 8277 Aug, [facility] [place] [facility] [address] [id number], [place] [address]- 3746 Aug, [facility] [place] [facility] [address] [id number], [place] [address]- 1427 Aug, [facility] [place] [facility] [address] [id number], [place] [address]- 3845 Aug, [facility] [place] [facility] [address] [id number], [place] [address]- 2729 Aug, [facility] [place] [facility] [address] [id number], [place] [address]- 8408 Aug, [facility] [place] [facility] [address] [id number], [place] [address]- 1741 Jul, [facility] [place] [facility] [address] [id number], [place] [address]- 2544 Jun, [facility] [place] [facility] [address] [id number] [place] [address]- 7930 Jun, [facility] [address] [id number] [place] [address]- 8255 Jun, [facility] [address] [id number] [place] [address]- 1814 Jun, [facility] [address] [id number] [place] [address]- 0500 Jun, [facility] [address] [id number] [place] [address]- 7305 Jun, [facility] [address] [id number] [place] [address]- 0263 May, [facility] [address] [id number] [place] [address]- 1837 May, [facility] [address] [id number] [place] [address]- 3305 May, [facility] [address] [id number] [place] [address]- 9582 May, [facility] [address] [id number] [place] [address]- 4831 March, [facility] [address] [id number] [place] [address]- 5747 March, [facility] [address] [id number] [place] [address]- 0246 March, [facility] [address] [id number] [place] [address]- 3149 Feb, [facility] [place] [facility] [address] [id number] [place] [address]- 5812 Feb, [facility] [place] [facility] [address] [id number] [place] [address]- 8623 Feb, [facility] [address] [id number] [place] [address]- 3004 Feb, [facility] [address] [id number] [place] [address]- 8945 Jan, [facility] [place] [facility] [address] [id number] [place] [address]- 4246 Jan, [facility] [place] [facility] [address] [id number] [place] [address]- 3641 Jan, [facility] [place] [facility] [address] [id number] [place] [address]- 5704 Dec, [facility] [place] [facility] [address] [id number] [place] [address]- 7075 Dec, [facility] [place] [facility] [address] [id number] [place] [address]- 1816 Dec, [facility] [address] [id number] [place] [address]- 7380 Dec, [facility] [place] [facility] [address] [id number] [place] [address]- 1612 Dec, [facility] [place] [facility] [address] [id number] [place] [address]- 2615 Nov, [facility] [address] [id number] [place] [address]- 0988 Nov, [facility] [place] [facility] [address] [id number] [place] [address]- 8118 Nov, [facility] [place] [facility] [address] [id number], [place] [address]- 1068 Nov, [facility] [place] [facility] [address] [id number] [place] [address]- 2847 Oct, [facility] [place] [facility] [address] [id number] [place] [address]- 6116 Oct, [facility] [place] [facility] [address] [id number] [place] [address]- 3740 Oct, [facility] [place] [facility] [address] [id number], [place] [address] Oct, [facility] [place] [facility] [address] [id number] [place] [address] Oct, [facility] [place] [facility] [address] [id number] [place] [address] Oct, [facility] [place] [facility] [address] [facility] [id number] [place] [address] Oct, [facility] [place] [facility] [address] [id number] [place] [address] Oct, [facility] [place] [facility] [address] [id number] [place] [address] Oct, [facility] [place] [facility] [address] [id number] [place] [address] Oct, [facility] [place] [facility] [id number] [place] [address] Oct, [facility] [place] [facility] [address] [id number] [place] [address] Oct, [facility] [place] [facility] [address] [id number] [place] [address] Oct, [facility] [place] [facility] [address] [id number] [place] [address] Sep, [facility] [place] [facility] [address] [id number] [place] [address] Sep, [facility] [place] [facility] [address] [id number], [place] [address] Sep, [facility] [place] [facility] [address] [id number] [place] [address] Sep, [facility] [place] [facility] [address] [facility] [id number] [place] [address] Sep, [facility] [place] [facility] [address] [id number] [place] [address] Sep, [facility] [place] [facility] [address] [id number] [place] [address] Sep, [facility] [place] [facility] [address] [id number] [place] [address] Sep, [facility] [place] [facility] [address] [id number] [place] [address] Sep, [facility] [place] [facility] [address] [id number] [place] [address] Sep, [facility] [place] [facility] [address] [id number] [place] [address] Sep, [facility] [place] [facility] [address] [id number] [place] [address] Sep, [facility] [place] [facility] [address] [id number] [place] [address] Aug, [facility] [place] [facility] [address] [id number] [place] [address] Aug, [facility] [place] [facility] [address] [id number] [place] [address] Aug, [facility] [place] [facility] [address] [id number] [place] [address] Aug, [facility] [place] [facility] [address] [facility] [id number] [place] [address] Aug, [facility] [place] [facility] [address] [id number] [place] [address] 14 Aug, 2012 [facility] [place] [facility] [address] [id number] [place] [address] Aug, [facility] [place] [facility] [address] [id number] [place] [address] Aug, [facility] [place] [facility] [address] [id number] [place] [address] Aug, [facility] [place] [facility] [address] [id number] [place] [address] Aug, [facility] [place] [facility] [address] [id number] [place] [address] Aug, [facility] [place] [facility] [address] [id number] [place] [address] Aug, [facility] [place] [facility] [address] [id number] [place] [address] 28 Jul, 2012 [facility] [place] [facility] [address] [id number] [place] [address] 27 Jul, 2012 [facility] [place] [facility] [address] [id number] [place] [address] Jul, [facility] [place] [facility] [address] [id number] [place] [address] Jul, [facility] [place] [facility] [address] [id number] [place] [address] Jul, [facility] [place] [facility] [address] [id number] [place] [address] Jul, [facility] [place] [facility] [address] [id number] [place] [address] Jun, [facility] [place] [facility] [address] [id number] [place] [address] Jun, [facility] [place] [facility] [address] [id number], [place] [address] Jun, [facility] [place] [facility] [address] [id number], [place] [address] May, [facility] [place] [facility] [address] [id number] [place] [address] May, [facility] [place] [facility] [address] [id number], [place] [address] May, [facility] [place] [facility] [address] [id number] [place] [address] May, [facility] [place] [facility] [address] [id number] [place] [address] 06 May, 2012 [facility] [place] [facility] [address] [id number] [place] [address] 05 May, 2012 [facility] [place] [facility] [address] [id number] [place] [address] 30 Apr, 2012 [facility] [place] [facility] [address] [id number] [place] [address] 23 Feb, 2012 [facility] [place] [facility] [address] [id number] [place] [address] 2546 18 Feb, 2012 [facility] [place] [facility] [address] [id number] [place] [address]164 11 Feb, 2012 [facility] [place] [facility] [address] [facility] [id number] [place] [address] 10 Feb, 2012 [facility] [place] [facility] [address] [facility] [id number] [place] [address] 16 Jan, 2012 [facility] [place] [facility] [address] [id number] [place] [address] 12 Jan, 2012 [facility] [place] [facility] [address] [id number] [place] [address] 29 Dec, 2011 [facility] [place] [facility] [address] [facility] [id number] [place] [address] 28 Dec, 2011 [facility] [place] [facility] [address] [facility] [id number] [place] [address] 2546 21 Dec, 2011 [facility] [place] [facility] [address] [facility] [id number] [place] [address] 2546 14 Dec, 2011 [facility] [place] [facility] [address] [id number] [place] [address] 4976 14 Dec, 2011 [facility] [place] [facility] [address] [facility] [id number] [place] [address] 2546 13 Dec, 2011 [facility] [place] [facility] [address] [id number] [place] [address] Dec, [facility] [address] [id number] [place] [address] Dec, [facility] [place] [facility] [address] [id number] [place] [address] 275[address] Dec, [facility] [place] [facility] [address] [id number] [place] [address] 2546 Nov, [facility] [place] [facility] [address] [id number] [place] [address] Nov, [facility] [place] [facility] [address] [id number] [place] [address]- [address] Nov, [facility] [place] [facility] [address] [id number] [place] [address] Nov, [facility] [place] [facility] [address] [id number] [place] [address]- [address] Nov, [facility] [place] [facility] [address] [id number] [place] [address]- 2[address] Nov, [facility] [place] [facility] [address] [id number] [place] [address]672 Nov, [facility] [place] [facility] [address] [id number] [place] [address] 8036 Nov, [facility] [place] [facility] [address] [id number], [place] [address] Nov, [facility] [place] [facility] [address] [id number], [place] [address] 4[address] Oct, [facility] [place] [facility] [address] [id number] [place] [address]- 2546 Oct, [facility] [place] [facility] [address] [id number] [place] [address]- 3726 Oct, [facility] [place] [facility] [address] [id number] [place] [address]- 2546 Oct, [facility] [place] [facility] [address] [id number] [place] [address]- 0184 05 Oct, 2011 [facility] [address] [id number] [place] [address]- 8[address] Oct, [facility] [place] [facility] [address] [id number] [place] [address]- [address]247 02 Sep, 2011 [facility] [address] [id number] [place] [address]- 3740 19 Aug, 2011 [facility] [place] [facility] [address] [id number] [place] [address] 4[address] Jul, [facility] [address] [id number] [place] [address]- 6[address] 17 Nov, 2010 [facility] [place] [facility] [address] [id number] [place] [address]- 7669 Nov, [facility] [address] [id number] [place] [address]- 1753 Oct, [facility] [address] [id number] [place] [address]- 7973 10 Sep, 2010 [facility] [place] [facility] [address] [id number] [place] [address]- 0[address] Sep[facility] [address] [facility] [id number] [place] [address]- 9461 18 Aug, 2010 [facility] [place] [facility] [address] [id number] [place] [address]- 5932 14 Aug, 2010 [facility] [place] [facility] [address] [id number] [place] [address]- 5293 14 Aug, 2010 [facility] [place] [facility] [address] [id number] [place] [address]- 6269 13 Feb, 2010 [facility] [place] [facility] [address] [id number] [place] [address]- 3899 10 Dec, 2009 [facility] [place] [facility] [address] [id number] [place] [address]- 6075 Oct, [facility] [address] [facility] [id number][place] [address] Oct, [facility] [address] [id number], [place] [address] 3945 Oct, [facility] [address] [id number], [place] [address] Sep, [facility] [id number] [address] [address] Sep, [facility] [address] [facility] [id number], [place] [address] 6[address] Sep, [facility] [id number], [place] [address] Aug, [facility] [address] [id number], [place] [address] Aug, IMMUNIZATIONS No Known Immunizations SOCIAL HISTORY Never Assessed REASON FOR VISIT f/u [facility]-ANNMAR[facility] PLAN OF CARE Activity Details Follow Up 4 Weeks Reason: f/u VITAL SIGNS Height 63 in 2018-03-22 Weight 252 lbs 2018-03-22 Heart Rate 110 bpm 2018-03-22 Respiratory Rate 20 2018-03-22 BMI 44.63 kg/m2 2018-03-22 Blood pressure systolic 118 mmHg 2018-03-22 Blood pressure diastolic 80 mmHg 2018-03-22 MEDICATIONS Medication Instructions Dosage Frequency Start Date End Date Duration Status Desvenlafaxine Succinate ER 100 MG Orally in morning 1 tablet Active Quetiapine Fumarate 300 MG Orally Once a day at night 1 tablet Active [place] Carbonate 300 MG Orally twice a day 1 capsule 12h Active Flagyl 500 mg Orally 2 times a day 1 tablet 12h Feb, 07 days Active Amitriptyline HCl 50 MG Orally Once a day at bedtime 1 tablet Feb, 30 days Active Gabapentin 800 MG Orally 3 times a day 1 tablet 8h 90 days Active BusPIRone HCl 10 mg Orally Three times a day 2 tablets 8h Feb, 30 days Active Seroquel 100 MG Orally Three times a day 1 tablet 8h 27 Oct, 2017 Active Diclofenac Sodium 75 MG Orally Twice [...] mental health issues x2 Ward Unit in [place] 2016 & 02/2017 Hospitalization History Surgery(s)/Childbirth(s)
--- OUTSIDE RECORDS SUMMARY | 2018-08-03 08:30 | XMS REPORT ---
Author Author TESS CRAIG [facility] Address [address] [place] [address] Care Team Providers Care Air Value Tester Name Role Phone RAFA, TESS Unavailable PROBLEMS Type Condition ICD9-CM Code OYZ40-IC Code Onset Dates Condition Status SNOMED Code Problem Adjustment disorder with mixed anxiety and depressed mood F43.23 Active 29323493 Problem Bipolar 1 disorder F31.9 Active 894285462 Problem Schizo affective schizophrenia F25.0 Active 527365961 Problem Dysmenorrhea N94.6 Active 106640640 Problem Morbid obesity due to excess calories E66.01 Active 978146201 Problem Cannabis use disorder, mild, abuse F12.10 Active 92604793 Problem Sciatica, unspecified side M54.30 Active 75211435 Problem Other chronic pain G89.29 Active 11423998 Problem Lumbago with sciatica, right side M54.41 Active 917646518 Problem Anxiety F41.9 Active 39795616 Problem PTSD (post-traumatic stress disorder) F43.10 Active 34332428 Problem Borderline personality disorder F60.3 Active 87982608 Problem Severe episode of recurrent major depressive disorder, with psychotic features F33.3 Active 75597172 Problem Night terror F51.4 Active 72316698 Problem Mood disorder F39 Active 34710428 ALLERGIES No Information ENCOUNTERS Encounter Location Date Diagnosis [facility] [id number] [address] Jul, [facility] [address] [address] Jul, [facility] [id number], [place] [address] Jun, [facility] [id number] [address] Jun, PTSD (post-traumatic stress disorder) F43.10 ; Mood disorder F39 ; Borderline personality disorder F60.3 and Cannabis use disorder, mild, abuse F12.10 [facility] [address] [address]- [address] Jun, [facility] [id number] [place] [address] 77253- 4823 Jun, PTSD (post-traumatic stress disorder) F43.10 [facility] [facility] [address] [address]- [address] Jun, [place] adverse reaction T43.595A and Sprain of anterior talofibular ligament of left ankle, initial encounter S93.492A [facility] [id number] [place] [address] 23120- 7961 Jun, [facility] [address] [address]- [address]134 May, [facility] [address] [address]- 1468 May, Skin tags, multiple acquired L91.8 ; Dysmenorrhea N94.6 and Acute non-recurrent maxillary sinusitis J01.00 [facility] [id number] [place] [address] 63079- 7764 May, PTSD (post-traumatic stress disorder) F43.10 [place] [id number] [place] [address] 50119- 8944 May, Other skilled nursing (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 [facility] [id number] [place] [address] 76214- 2472 May, PTSD (post-traumatic stress disorder) F43.10 ; Mood disorder F39 ; Borderline personality disorder F60.3 and Cannabis use disorder, mild, abuse F12.10 [facility] [id number] [place] [address] 32512- 5856 May, BMI 40.0-44.9, adult Z68.41 [facility] [address] [place] [address] 22176- 5950 18 Apr, 2018 BMI 40.0-44.9, adult Z68.41 [facility] [id number] [place] [address] 55089- 7842 14 Apr, 2018 Acute non-recurrent maxillary sinusitis J01.00 [facility] [address] 24664- 6063 11 Apr, 2018 PTSD (post-traumatic stress disorder) F43.10 ; Mood disorder F39 ; Borderline personality disorder F60.3 ; Cannabis use disorder, mild, abuse F12.10 and Other skilled nursing (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 [facility] [id number] [place] [address] 72016- 9623 08 Apr, [address] [address]- [address]14 07 Apr, 2018 Annual physical exam Z00.00 and High risk medication use Z79.899 [facility] [id number] [place] [address] 88983- 4998 07 Apr, 2018 PTSD (post-traumatic stress disorder) F43.10 [facility] [id number] [place] [address] 48053- 9951 Apr, [facility] [id number] [place] [address] 04493- 0166 March, BMI 40.0-44.9, adult Z68.41 ; Morbid obesity due to excess calories E66.01 ; Lumbago with sciatica, right side M54.41 and Other chronic pain G89.29 [facility] [address] 02049- 8799 March, PTSD (post-traumatic stress disorder) F43.10 [facility] [id number] [place] [address] 29114- 1707 March, PTSD (post-traumatic stress disorder) F43.10 ; Mood disorder F39 ; Borderline personality disorder F60.3 and Cannabis use disorder, mild, abuse F12.10 [facility] [address], [place] [address] Feb, [facility] [address], [place] [address] 17[address] Feb, [facility] [id number] [address] Feb, Breast cancer screening Z12.31 [facility] [address] [place] [address] 31159- 9477 17 Feb, 2018 Mood disorder F39 and PTSD (post-traumatic stress disorder) F43.10 [facility] [place] [address] [place] [address] 75010- 4585 Feb, PTSD (post-traumatic stress disorder) F43.10 ; Mood disorder F39 ; Borderline personality disorder F60.3 and Cannabis use disorder, mild, abuse F12.10 [facility] [address], [place] [address] 95[address] Feb, Schizo affective schizophrenia F25.0 ; Adjustment disorder with mixed anxiety and depressed mood F43.23 ; Night terror F51.4 ; Anxiety F41.9 and Borderline personality disorder F60.3 [facility] [address], [place] [address] 2599 Feb, [facility] [address] [place] [address] 07157- 1979 Feb, Mood disorder F39 [facility] [address], [place] [address] 98[address] Feb, Annual physical exam Z00.00 ; BMI 40.0-44.9, adult Z68.41 and Nipple discharge N64.52 [facility] [address], [place] [address] 96[address] Jan, Schizo affective schizophrenia F25.0 ; Adjustment disorder with mixed anxiety and depressed mood F43.23 ; Night terror F51.4 ; Anxiety F41.9 and Borderline personality disorder F60.3 [place] [id number] [place] [address] 42970- 3547 Jan, Mood disorder F39 ; PTSD (post-traumatic stress disorder) F43.10 ; Borderline personality disorder F60.3 and High risk medication use Z79.899 [facility] [address] 73484- 2206 Dec, Anxiety F41.9 and Borderline personality disorder F60.3 [facility] [address] 96704- 3568 Dec, [facility] [address] 92021- 8294 Dec, Anxiety F41.9 and Borderline personality disorder F60.3 [facility] [facility] [address] 20598- 7901 Dec, [facility] [address] 550[address]- 8259 Dec, [facility] [address] 48473- 2229 Nov, Acute non-recurrent maxillary sinusitis J01.00 ; Mood disorder F39 and Sciatica, unspecified side M54.30 [facility] [address] 84305- 9470 Nov, Mood disorder F39 ; PTSD (post-traumatic stress disorder) F43.10 and Borderline personality disorder F60.3 [place] [id number] [place] [address] 96170- 4527 Nov, Anxiety F41.9 and Borderline personality disorder F60.3 [facility] [id number] [place] [address] 27897- 4060 Nov, [facility] [address] 73429- 5349 Nov, Anxiety F41.9 and Sciatica, unspecified side M54.30 [facility] [id number] [place] [address] 52221- 6815 Oct, Anxiety F41.9 [facility] [id number] [place] [address] 20492- 3674 Oct, Mood disorder F39 ; PTSD (post-traumatic stress disorder) F43.10 ; Borderline personality disorder F60.3 and High risk medication use Z79.899 [facility] [id number] [place] [address] [id number] 11 Oct, 2017 Dental caries K02.9 and Dental examination Z01.20 [facility] [id number] [place] [address] 17615- 7991 Sep, Dysuria R30.0 and Abdominal pain, right lower quadrant R10.31 [place] [address] 22748- 3325 Aug, Mood disorder F39 ; PTSD (post-traumatic stress disorder) F43.10 and Borderline personality disorder F60.3 [facility] [address] 06695- 4850 Aug, [facility] [id number] [place] [address] 46141- 7706 Aug, [facility] [place] [id number] [place] [address] 07714- 9019 Aug, Severe episode of recurrent major depressive disorder, with psychotic features F33.3 ; PTSD (post-traumatic stress disorder) F43.10 ; Adjustment disorder with mixed anxiety and depressed mood F43.23 and Borderline personality disorder F60.3 [facility] [id number] [place] [address] 04118- 5011 Aug, Mood disorder F39 ; PTSD (post-traumatic stress disorder) F43.10 and Borderline personality disorder F60.3 [facility] [id number] [place] [address] 21836- 9210 Aug, [facility] [id number], [place] [address]- 0063 Aug, Bipolar 1 disorder F31.9 and Schizo affective schizophrenia F25.0 [facility] [address] [facility] [id number] [address] 2546 Aug, Mood disorder F39 [facility] [id number] [place] [address] 98882 2546 Aug, Bipolar 1 disorder F31.9 and Schizo affective schizophrenia F25.0 [facility] [id number], [place] [address]- 1746 Aug, Bipolar 1 disorder F31.9 and Schizo affective schizophrenia F25.0 [facility] [id number], [place] [address]- 3426 Aug, [facility] [id number] [place] [address] 68600- 4110 Aug, PTSD (post-traumatic stress disorder) F43.10 and Borderline personality disorder F60.3 [facility] [address] [place] [address] 81606- 9434 Aug, [facility] [id number] [address]- 9414 Aug, Mood disorder F39 ; PTSD (post-traumatic stress disorder) F43.10 ; Borderline personality disorder F60.3 and Adjustment disorder with mixed anxiety and depressed mood F43.23 [facility] [id number], [place] [address]- 0220 Jul, [facility] [id number] [place] [address] 10910 2542 Jul, Mood disorder F39 ; PTSD (post-traumatic stress disorder) F43.10 and Borderline personality disorder F60.3 [facility] [id number], [place] [address]- 7506 Jul, [facility] [address], [place] [address]- 6828 Jun, Anxiety F41.9 ; ADHD (attention deficit hyperactivity disorder) F90.9 ; Night terror F51.4 ; Bulimia F50.2 ; Severe episode of recurrent major depressive disorder, with psychotic features F33.3 and PTSD ( post-traumatic stress disorder) F43.10 [facility] [address] [place] [address] 50526- 7802 Jun, Borderline personality disorder F60.3 ; Mood disorder F39 and PTSD (post-traumatic stress disorder) F43.10 [facility] [address] [place] [address] 11469- 4972 Jun, Anxiety F41.9 [facility] [address] [place] [address] 50458- 8734 Jun, Anxiety F41.9 ; ADHD (attention deficit hyperactivity disorder) F90.9 ; Night terror F51.4 ; Bulimia F50.2 ; Severe episode of recurrent major depressive disorder, with psychotic features F33.3 and PTSD ( post-traumatic stress disorder) F43.10 [facility] [address], [place] [address]- 7962 Jun, ADHD (attention deficit hyperactivity disorder) F90.9 ; Night terror F51.4 ; Bulimia F50.2 ; Anxiety F41.9 ; Severe episode of recurrent major depressive disorder, with psychotic features F33.3 and PTSD ( post-traumatic stress disorder) F43.10 [facility] [address], [place] [address]- 2609 May, Anxiety F41.9 [facility] [address], [place] [address]- 7997 May, PTSD (post-traumatic stress disorder) F43.10 and Borderline personality disorder F60.3 [facility] [address], [place] [address]- 2340 Apr, [place] [address] [address] March, Dental examination Z01.20 and Dental caries K02.9 [facility] [id number] [place] [address] 19812- 0025 March, Dental examination Z01.20 [facility] [id number] [place] [address] 20780- 4512 March, Tooth abscess K04.7 and Tooth pain K08.89 [facility] [id number] [place] [address] 41874- 2309 March, Borderline personality disorder F60.3 [place] [id number] [place] [address] 29693- 4522 March, ADHD (attention deficit hyperactivity disorder) F90.9 ; Night terror F51.4 ; Bulimia F50.2 and Anxiety F41.9 [facility] [id number] [place] [address] 63658- 0296 Feb, Borderline personality disorder F60.3 ; ADHD (attention deficit hyperactivity disorder) F90.9 ; Anxiety F41.9 ; Bulimia F50.2 ; Obsessive-compulsive disorder, unspecified type F42.9 and Night terror F51.4 [facility] [address] [place] [address] 17491- 6904 Feb, [facility] [id number] [place] [address] 39288- 2157 Feb, [facility] [id number] [place] [address] 23908- 3315 Jul, [facility] [id number] [place] [address] 22773- 2883 Jul, [facility] [id number] [place] [address] 17163- 0840 Jul, [facility] [address] [place] [address] 32475- 8504 Jul, [place] [address] [id number] [place] [address]- 5899 Jun, [facility] [place] [facility] [address] [id number] [place] [address]- 3776 Jun, [facility] [place] [facility] [address] [id number] [place] [address]- 9246 Jun, [facility] [place] [facility] [address] [id number] [place] [address]- 3234 Jun, [facility] [place] [facility] [address] [id number] [place] [address]- 4027 Apr, [facility] [place] [facility] [address] [id number] [place] [address]- 4910 Apr, [facility] [place] [facility] [address] [id number] [place] [address]- 5149 March, [facility] [place] [facility] [address] [id number] [place] [address]- 6495 March, [facility] [place] [facility] [address] [id number] [place] [address]- 6881 Jan, [facility] [place] [facility] [address] [id number] [place] [address]- 4491 Jan, [facility] [place] [facility] [address] [id number] [place] [address]- 7129 Jan, [facility] [place] [facility] [address] [id number] [place] [address]- 4476 Jan, [facility] [place] [facility] [address] [id number] [place] [address]- 0961 Jan, [facility] [place] [facility] [address] [id number] [place] [address]- 4625 Dec, [facility] [place] [facility] [address] [id number] [place] [address]- 4094 Dec, [facility] [place] [facility] [address] [id number] [place] [address]- 2546 Oct, [facility] [place] [facility] [address] [id number] [place] [address]- 9041 Oct, [facility] [place] [facility] [address] [id number] [place] [address]- 0038 Oct, [facility] [place] [facility] [address] [id number] [place] [address]- 7182 Oct, [facility] [place] [facility] [address] [id number] [place] [address]- 1067 Sep, [facility] [place] [facility] [address] [id number] [place] [address]- 5037 Sep, [facility] [place] [facility] [address] [id number] [place] [address]- 6891 Sep, [facility] [place] [facility] [address] [id number] [place] 6111 Aug, [facility] [place] [facility] [address] [id number] [place] [address]- 1022 Aug, [facility] [place] [facility] [address] [id number] [place]27 Aug, [facility] [place] [facility] [address] [id number] [place] [address]- 1835 Aug, [facility] [place] [facility] [address] [id number], [place] [address]- 5422 Aug, [facility] [place] [facility] [address] [id number], [place] [address]- 2820 Aug, [facility] [place] [facility] [address] [id number] [place] [address]- 4397 Aug, [facility] [place] [facility] [address] [id number], [place] [address]- 5857 Jul, [facility] [place] [facility] [address] [id number] [place] [address] 2543 Jun, [facility] [place] [facility] [address] [id number] [place] [address]- 1992 Jun, [facility] [address] [id number] [place] [address]- 9070 Jun, [facility] [address] [id number] [place] [address]- 3246 Jun, [facility] [address] [id number] [place] [address]- 7029 Jun, [facility] [address] [id number] [place] [address]- 7960 Jun, [facility] [address] [id number] [place] [address]- 4460 May, [facility] [address] [id number] [place] [address]- 4025 May, [facility] [address] [id number] [place] [address]- 0710 May, [facility] [address] [id number] [place] [address]- 8392 May, [facility] [address] [id number] [place] [address]- 7778 March, [facility] [address] [id number] [place] [address]- 8840 March, [facility] [address] [id number] [place] [address]- 1913 March, [facility] [address] [id number] [place] [address]- 1690 Feb, [facility] [address] [id number] [place] [address]- 7171 Feb, [facility] [address] [id number] [place] [address]- 8049 Feb, [facility] [address] [id number] [place] [address]- 1167 Feb, [facility] [address] [id number] [place] [address]- 2730 Jan, [facility] [place] [facility] [address] [id number] [place] [address]- 8576 Jan, [facility] [address] [id number] [place] [address]- 8016 Jan, [facility] [place] [facility] [address] [id number] [place] [address]- 1856 Dec, [facility] [address] [id number] [place] [address]- 1665 Dec, [facility] [place] [facility] [address] [id number] [place] [address]- 1596 Dec, [facility] [address] [id number] [place] [address]- 3936 Dec, [facility] [place] [facility] [address] [id number] [place] [address]- 7892 Dec, [facility] [address] [id number] [place] [address]- 1406 Nov, [facility] [address] [id number] [place] [address]- 0486 Nov, [facility] [address] [id number] [place] [address]- 6786 Nov, [facility] [place] [facility] [address] [id number] [place] [address]- 4766 Nov, [facility] [place] [facility] [address] [id number] [place] [address]- 7416 Oct, [facility] [place] [facility] [address] [id number] [place] [address]- 5616 Oct, [facility] [place] [facility] [address] [id number] [place] [address]- 7756 Oct, [facility] [place] [facility] [address] [id number] [place] [address]- 4226 Oct, [facility] [place] [facility] [address] [id number] [place] [address]- 6826 Oct, [facility] [place] [facility] [address] [id number] [place] [address] 2546 Oct, [facility] [place] [facility] [address] [id number] [place] [address]- 6596 Oct, [facility] [place] [facility] [address] [id number] [place] [address] 2546 Oct, [facility] [place] [facility] [address] [id number] [place] [address]- 2746 Oct, [facility] [place] [facility] [address] [id number] [place] [address]- 9036 Oct, [facility] [place] [facility] [address] [id number] [place] [address]- 6624 Oct, [facility] [place] [facility] [address] [id number] [place] [address]- 5568 Oct, [facility] [place] [facility] [address] [id number] [place] [address]- 2016 Oct, [facility] [place] [facility] [address] [id number] [place] [address] Sep, [facility] [place] [facility] [address] [id number] [place] [address] Sep, [facility] [place] [facility] [address] [id number] [place] [address] Sep, [facility] [place] [facility] [address] [id number] [place] [address] Sep, [facility] [place] [facility] [address] [id number] [place] [address] Sep, [facility] [place] [facility] [address] [id number] [place] [address] Sep, [facility] [place] [facility] [address] [id number] [place] [address] Sep, [facility] [place] [facility] [address] [id number] [place] [address] Sep, [facility] [place] [facility] [address] [id number] [place] [address] Sep, [facility] [place] [facility] [address] [id number] [place] [address] Sep, [facility] [place] [facility] [address] [id number] [place] [address] Sep, [facility] [place] [facility] [address] [id number] [place] [address] Sep, [facility] [place] [facility] [address] [facility] [id number] [place] [address] Aug, [facility] [place] [facility] [address] [id number] [place] [address] Aug, [facility] [place] [facility] [address] [id number] [place] [address] Aug, [facility] [place] [facility] [address] [id number] [place] [address] Aug, [facility] [place] [facility] [address] [facility] [id number] [place] [address] Aug, [facility] [place] [facility] [address] [id number], [place] [address] Aug, [facility] [place] [facility] [address] [id number] [place] [address] Aug, [facility] [place] [facility] [address] [id number] [place] [address] Aug, [facility] [place] [facility] [address] [id number] [place] [address] Aug, [facility] [place] [facility] [address] [id number], [place] [address] Aug, [facility] [place] [facility] [address] [id number] [place] [address] Aug, [facility] [place] [facility] [address] [id number] [place] [address] Aug, [facility] [place] [facility] [address] [id number] [place] [address] 28 Jul, 2012 [facility] [place] [facility] [address] [id number] [place] [address] 27 Jul, 2012 [facility] [place] [facility] [address] [id number] [place] [address] 21 Jul, 2012 [facility] [place] [facility] [address] [id number] [place] [address] 10 Jul, 2012 [facility] [place] [facility] [address] [id number] [place] [address] 05 Jul, 2012 [facility] [place] [facility] [address] [id number] [place] [address] Jul, [facility] [place] [facility] [address] [id number] [place] [address] Jun, [facility] [place] [facility] [address] [id number] [place] [address] Jun, [facility] [place] [facility] [address] [id number] [place] [address] Jun, [facility] [place] [facility] [address] [id number] [place] [address] May, [facility] [place] [facility] [address] [address] [id number] [place] [address] May, [facility] [place] [facility] [address] [id number] [place] [address] [address] May, [facility] [place] [facility] [address] [id number] [place] [address] May, [facility] [place] [facility] [address] [id number] [place] [address] 06 May, 2012 [facility] [address] [id number] [place] [address] 05 May, 2012 [facility] [place] [facility] [address] [id number] [place] [address] 30 Apr, 2012 [facility] [place] [facility] [address] [id number] [place] [address] 23 Feb, 2012 [facility] [place] [facility] [address] [id number] [place] [address] 18 Feb, 2012 [facility] [place] [facility] [address] [id number] [place] [address] 11 Feb, 2012 [facility] [place] [facility] [address] [facility] [id number] [place] [address] 10 Feb, 2012 [facility] [place] [facility] [address] [id number] [place] [address] 16 Jan, 2012 [facility] [address] [id number] [place] [address] 12 Jan, 2012 [facility] [place] [facility] [address] [id number] [place] [address] 29 Dec, 2011 [facility] [place] [facility] [address] [facility] [id number] [place] [address] 28 Dec, 2011 [facility] [place] [facility] [address] [id number] [place] [address] 21 Dec, 2011 [facility] [place] [facility] [address] [id number] [place] [address] 14 Dec, 2011 [facility] [place] [facility] [address] [id number] [place] [address] 14 Dec, 2011 [facility] [place] [facility] [address] [id number] [place] [address] 13 Dec, 2011 [facility] [place] [facility] [address] [id number] [address] Dec, [facility] [address] [id number] [place] [address] Dec, [facility] [address] [id number] [place] [address] Dec, [facility] [address] [id number] [place] [address] Nov, [facility] [address] [id number] [place] [address] Nov, [facility] [address] [id number] [place] [address] Nov, [facility] [address] [id number] [place] [address] Nov, [facility] [address] [id number] [place] [address] Nov, [facility] [address] [id number] [place] [address] Nov, [facility] [address] [id number] [place] [address] Nov, [facility] [address] [id number] [place] [address] 79[address] Nov, [facility] [address] [id number], [place] [address] Nov, [facility] [address] [id number], [place] [address] Oct, [facility] [address] [id number] [place] [address] Oct, [facility] [place] [facility] [address] [id number] [place] [address] Oct, [facility] [address] [id number] [place] [address] Oct, [facility] [place] [facility] [address] [id number] [place] [address]46 05 Oct, 2011 [facility] [address] [id number] [place] [address] Oct, [facility] [place] [facility] [address] [id number] [place] [address] Sep, [facility] [place] [facility] [address] [id number] [place] [address] Aug, [facility] [place] [facility] [address] [id number] [place] [address] Jul, [facility] [place] [facility] [address] [id number] [place] [address] Nov, [facility] [place] [facility] [address] [id number] [place] [address]16 Nov, [facility] [place] [facility] [address] [id number] [place] [address] 40[address] Oct, [facility] [place] [facility] [address] [id number] [place] [address] 10 Sep, 2010 [facility] [place] [facility] [address] [id number] [place] [address] Sep, [facility] [place] [facility] [address] [facility] [id number] [place] [address] 4796 18 Aug, 2010 [facility] [place] [facility] [address] [id number] [place] [address]- [address] 14 Aug, 2010 [facility] [place] [facility] [address] [id number] [place] [address] 9905 14 Aug, 2010 [facility] [place] [facility] [address] [id number] [place] [address] 7186 13 Feb, 2010 [facility] [place] [facility] [address] [id number] [place] [address]46 10 Dec, 2009 [facility] [place] [facility] [address] [id number] [place] [address] Oct, [facility] [address] [facility] [id number], [place] [address] Oct, [facility] [address] [facility] [id number], [place] [address] Oct, [facility] [address] [facility] [id number], [place] [address] 9[address] Sep, [facility] [address] [facility] [id number], [place] [address] Sep, [facility] [address] [facility] [id number], [place] [address] Sep, [facility] [address] [facility] [id number] [address] Aug, [facility] [address] [id number], [place] [address] Aug, IMMUNIZATIONS No Known Immunizations SOCIAL HISTORY Never Assessed REASON FOR VISIT med refill PLAN OF CARE VITAL SIGNS MEDICATIONS Medication Instructions Dosage Frequency Start Date End Date Duration Status Seroquel 100 mg Orally Three times a day 1 tablet 8h Oct, 30 days Active Quetiapine Fumarate 300 MG Orally Once a day at night 1 tablet 30 days Active RESULTS No [...] mental health issues x2 Ward Unit in [place] 2016 & 02/2017 Hospitalization History Surgery(s)/Childbirth(s)
--- OUTSIDE RECORDS SUMMARY | 2018-08-03 08:31 | XMS REPORT ---
Author Author RACHAEL CHEATHAM Organization [facility] Address [address] [place] [address] Care Team Providers Care Scale Balancer Name Role Phone RACHAEL CHEATHAM Unavailable PROBLEMS Type Condition ICD9-CM Code [id number] Code Onset Dates Condition Status SNOMED Code Problem Adjustment disorder with mixed anxiety and depressed mood F43.23 Active 83823037 Problem Bipolar 1 disorder F31.9 Active 565523843 Problem Schizo affective schizophrenia F25.0 Active 830270280 Problem Dysmenorrhea N94.6 Active 312840065 Problem Morbid obesity due to excess calories E66.01 Active 600862901 Problem Cannabis use disorder, mild, abuse F12.10 Active 20311885 Problem Sciatica, unspecified side M54.30 Active 54700822 Problem Other chronic pain G89.29 Active 62554704 Problem Lumbago with sciatica, right side M54.41 Active 887759390 Problem Anxiety F41.9 Active 86803324 Problem PTSD (post-traumatic stress disorder) F43.10 Active 98648074 Problem Borderline personality disorder F60.3 Active 59305375 Problem Severe episode of recurrent major depressive disorder, with psychotic features F33.3 Active 46159928 Problem Night terror F51.4 Active 44330428 Problem Mood disorder F39 Active 42590898 ALLERGIES Substance Reaction Event Type Date Status Pseudoephedrine HCl ER unknown Drug Allergy Feb, Active Phenytoin rash Drug Allergy Feb, Active Penicillamine anaphylaxis Drug Allergy Feb, Active Cephalexin anaphylaxis Drug Allergy Feb, Active Albuterol unknown Drug Allergy Feb, Active ENCOUNTERS Encounter Location Date Diagnosis [facility] [address] [facility] [id number] [address] Jun, [facility] [address] [facility] [id number], [place] [address] Jun, [facility] [id number] [place] [address] 67686- 0337 Jun, PTSD (post-traumatic stress disorder) F43.10 [place] [id number] [place] [address] 73760- 7558 Jun, [place] adverse reaction T43.595A and Sprain of anterior talofibular ligament of left ankle, initial encounter S93.492A [place] [address] [address]- [address] Jun, [place] [address] 24418- 7932 May, [place] [address] 20759- 3267 May, Skin tags, multiple acquired L91.8 ; Dysmenorrhea N94.6 and Acute non-recurrent maxillary sinusitis J01.00 [place] [address] 52477- 4639 May, PTSD (post-traumatic stress disorder) F43.10 [place] [id number] [place] [address] 24545- 5049 May, Other terminal gauger (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 [place] [id number] [place] [address] 48013- 8350 May, PTSD (post-traumatic stress disorder) F43.10 ; Mood disorder F39 ; Borderline personality disorder F60.3 and Cannabis use disorder, mild, abuse F12.10 [place] [id number] [place] [address] 41342- 5551 May, BMI 40.0-44.9, adult Z68.41 [place] [address] 05849- 2587 18 Apr, 2018 BMI 40.0-44.9, adult Z68.41 [place] [address] 93491- 1442 14 Apr, 2018 Acute non-recurrent maxillary sinusitis J01.00 [place] [address] [place] [address] 49542- 2928 11 Apr, 2018 PTSD (post-traumatic stress disorder) F43.10 ; Mood disorder F39 ; Borderline personality disorder F60.3 ; Cannabis use disorder, mild, abuse F12.10 and Other terminal gauger (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 [place] [id number] [place] [address] 86955- 1100 08 Apr, 2018 [place] [id number] [place] [address] 23271- 6471 07 Apr, 2018 Annual physical exam Z00.00 and High risk medication use Z79.899 [place] [id number] [place] [address] 61181- 5351 07 Apr, 2018 PTSD (post-traumatic stress disorder) F43.10 [place] [id number] [place] [address] 48246- 8638 Apr, [place] [id number] [place] [address] 14072- 9547 March, BMI 40.0-44.9, adult Z68.41 ; Morbid obesity due to excess calories E66.01 ; Lumbago with sciatica, right side M54.41 and Other chronic pain G89.29 [id number] [place] [address] 00806- 3575 March, PTSD (post-traumatic stress disorder) F43.10 [place] [id number] [place] [address] 83560- 9030 March, PTSD (post-traumatic stress disorder) F43.10 ; Mood disorder F39 ; Borderline personality disorder F60.3 and Cannabis use disorder, mild, abuse F12.10 [address] [address] 1688 Feb, [place] [id number] [place] [address] 93481- 0854 Feb, [facility] [id number] [address] Feb, Breast cancer screening Z12.31 [place] [address] [place] [address] 58313- 8709 Feb, Mood disorder F39 and PTSD (post-traumatic stress disorder) F43.10 [place] [id number] [place] [address] 48164- 9770 Feb, PTSD (post-traumatic stress disorder) F43.10 ; Mood disorder F39 ; Borderline personality disorder F60.3 and Cannabis use disorder, mild, abuse F12.10 [place] [id number] [place] [address] 07701- 4162 Feb, Schizo affective schizophrenia F25.0 ; Adjustment disorder with mixed anxiety and depressed mood F43.23 ; Night terror F51.4 ; Anxiety F41.9 and Borderline personality disorder F60.3 [place] [address] [place] [address] 05142- 0123 Feb, [address] [place] [address] 36830- 4160 Feb, Mood disorder F39 [address] [place] [address] 49027- 7575 Feb, Annual physical exam Z00.00 ; BMI 40.0-44.9, adult Z68.41 and Nipple discharge N64.52 [address] [place] [address] 63933- 6933 Jan, Schizo affective schizophrenia F25.0 ; Adjustment disorder with mixed anxiety and depressed mood F43.23 ; Night terror F51.4 ; Anxiety F41.9 and Borderline personality disorder F60.3 [address] [place] [address] 68951- 9354 Jan, Mood disorder F39 ; PTSD (post-traumatic stress disorder) F43.10 ; Borderline personality disorder F60.3 and High risk medication use Z79.899 [facility] [address] [place] [address] 08566- 1452 Dec, Anxiety F41.9 and Borderline personality disorder F60.3 [facility] [id number] [place] [address] 61255- 4126 Dec, [facility] [id number] [place] [address] 33231- 6946 Dec, Anxiety F41.9 and Borderline personality disorder F60.3 [facility] [id number] [place] [address] 04203- 7366 Dec, [facility] [id number] [place] [address] 92678- 6546 Dec, [facility] [id number] [place] [address] 03250- 4306 Nov, Acute non-recurrent maxillary sinusitis J01.00 ; Mood disorder F39 and Sciatica, unspecified side M54.30 [facility] [id number] [place] [address] 54539- 0368 Nov, Mood disorder F39 ; PTSD (post-traumatic stress disorder) F43.10 and Borderline personality disorder F60.3 [facility] [id number] [place] [address] 52795- 5236 Nov, Anxiety F41.9 and Borderline personality disorder F60.3 [facility] [address] [place] [address] 70751- 3848 Nov, [facility] [id number] [place] [address] 23773- 2921 Nov, Anxiety F41.9 and Sciatica, unspecified side M54.30 [facility] [id number] [place] [address] 54256- 2356 Oct, Anxiety F41.9 [facility] [id number] [place] [address] 55773- 2729 Oct, Mood disorder F39 ; PTSD (post-traumatic stress disorder) F43.10 ; Borderline personality disorder F60.3 and High risk medication use Z79.899 [facility] [address] [id number] 11 Oct, 2017 Dental caries K02.9 and Dental examination Z01.20 [facility] [address] [place] [address] 08160- 6052 Sep, Dysuria R30.0 and Abdominal pain, right lower quadrant R10.31 [facility] [address] [place] [address] 32966- 0990 Aug, Mood disorder F39 ; PTSD (post-traumatic stress disorder) F43.10 and Borderline personality disorder F60.3 [facility] [id number] [place] [address] 90879- 6469 Aug, [facility] [id number] [place] [address] 45752- 0912 Aug, [facility] [address] [place] [address] 47167- 7507 Aug, Severe episode of recurrent major depressive disorder, with psychotic features F33.3 ; PTSD (post-traumatic stress disorder) F43.10 ; Adjustment disorder with mixed anxiety and depressed mood F43.23 and Borderline personality disorder F60.3 [facility] [address] [place] [address] 42155- 4923 Aug, Mood disorder F39 ; PTSD (post-traumatic stress disorder) F43.10 and Borderline personality disorder F60.3 [facility] [address] [address]- 0943 Aug, [facility] [id number] [place] [address] 41899- 8386 Aug, Bipolar 1 disorder F31.9 and Schizo affective schizophrenia F25.0 [facility] [address] [place] [address] 25627- 6526 Aug, Mood disorder F39 [facility] [address], [place] [address]- 3899 Aug, Bipolar 1 disorder F31.9 and Schizo affective schizophrenia F25.0 [facility] [address], [place] [address]- 8166 Aug, Bipolar 1 disorder F31.9 and Schizo affective schizophrenia F25.0 [facility] [id number] [place] [address] 56403- 4582 Aug, [facility] [id number] [place] [address] 62501- 6258 Aug, PTSD (post-traumatic stress disorder) F43.10 and Borderline personality disorder F60.3 [facility] [id number] [place] [address] 32307- 5997 Aug, [facility] [id number] [place] [address] 46993- 3742 Aug, Mood disorder F39 ; PTSD (post-traumatic stress disorder) F43.10 ; Borderline personality disorder F60.3 and Adjustment disorder with mixed anxiety and depressed mood F43.23 [facility] [address] [place] [address] 47809- 5254 Jul, [facility] [address] [address]- 4566 Jul, Mood disorder F39 ; PTSD (post-traumatic stress disorder) F43.10 and Borderline personality disorder F60.3 [facility] [address], [place] [address]- 3226 Jul, [facility] [id number] [place] [address] 20876- 7852 Jun, Anxiety F41.9 ; ADHD (attention deficit hyperactivity disorder) F90.9 ; Night terror F51.4 ; Bulimia F50.2 ; Severe episode of recurrent major depressive disorder, with psychotic features F33.3 and PTSD ( post-traumatic stress disorder) F43.10 [facility] [address], [place] [address]- 2491 Jun, Borderline personality disorder F60.3 ; Mood disorder F39 and PTSD (post-traumatic stress disorder) F43.10 [facility] [address], [place] [address]- 1294 Jun, Anxiety F41.9 [facility] [id number] [place] [address] 14181- 4458 Jun, Anxiety F41.9 ; ADHD (attention deficit hyperactivity disorder) F90.9 ; Night terror F51.4 ; Bulimia F50.2 ; Severe episode of recurrent major depressive disorder, with psychotic features F33.3 and PTSD ( post-traumatic stress disorder) F43.10 [facility] [address], [place] [address]- 4290 Jun, ADHD (attention deficit hyperactivity disorder) F90.9 ; Night terror F51.4 ; Bulimia F50.2 ; Anxiety F41.9 ; Severe episode of recurrent major depressive disorder, with psychotic features F33.3 and PTSD ( post-traumatic stress disorder) F43.10 [facility] [address] [place] [address] 22647- 7930 May, Anxiety F41.9 [facility] [address], [place] [address]- 9058 May, PTSD (post-traumatic stress disorder) F43.10 and Borderline personality disorder F60.3 [facility] [address] [address]- 3432 Apr, [facility] [address] [place] [address] [id number] March, Dental examination Z01.20 and Dental caries K02.9 [facility] [address], [place] [address]- 6615 March, Dental examination Z01.20 [facility] [id number] [place] [address] 17344- 1346 March, Tooth abscess K04.7 and Tooth pain K08.89 [facility] [id number] [place] [address] 97884- 0077 March, Borderline personality disorder F60.3 [facility] [id number] [place] [address] 51655- 2078 March, ADHD (attention deficit hyperactivity disorder) F90.9 ; Night terror F51.4 ; Bulimia F50.2 and Anxiety F41.9 [facility] [id number] [place] [address] 95566- 4791 Feb, Borderline personality disorder F60.3 ; ADHD (attention deficit hyperactivity disorder) F90.9 ; Anxiety F41.9 ; Bulimia F50.2 ; Obsessive-compulsive disorder, unspecified type F42.9 and Night terror F51.4 [facility] [id number] [place] [address] 45008- 3004 Feb, [facility] [id number] [place] [address] 73698- 6451 Feb, [facility] [id number] [place] [address] 67455- 9965 Jul, [facility] [id number] [place] [address] 78008- 8532 Jul, [facility] [id number] [place] [address] 13635- 7553 Jul, [facility] [id number] [place] [address] 91346- 2607 Jul, [facility] [id number] [place] [address] 49771- 7430 Jun, [facility] [id number] [place] [address] 10894- 6488 Jun, [facility] [id number] [place] [address] 45943- 0768 Jun, [facility] [address] [id number] [place] [address]- 1521 Jun, [facility] [place] [facility] [address] [id number] [place] [address]- 0376 Apr, [facility] [place] [facility] [address] [id number] [place] [address]- 6500 Apr, [facility] [place] [facility] [address] [id number] [place] [address]- 2767 March, [facility] [place] [facility] [address] [id number] [place] [address]- 3300 March, [facility] [place] [facility] [address] [id number] [place] [address]- 8263 Jan, [facility] [place] [facility] [address] [id number] [place] [address]- 5258 Jan, [facility] [place] [facility] [address] [id number] [place] [address]- 8161 Jan, [facility] [place] [facility] [address] [id number] [place] [address]- 1177 Jan, [facility] [place] [facility] [address] [id number] [place] [address]- 1164 Jan, [facility] [place] [facility] [address] [id number] [place] [address]- 0246 Dec, [facility] [place] [facility] [address] [id number] [place] [address]- 3322 Dec, [facility] [place] [facility] [address] [id number] [place] [address]- 9837 Oct, [facility] [place] [facility] [address] [id number] [place] [address]- 4799 Oct, [facility] [place] [facility] [address] [facility] [id number] [place] [address]- 2740 Oct, [facility] [place] [facility] [address] [id number] [place] [address]- 6025 Oct, [facility] [place] [facility] [address] [id number] [place] [address]- 5063 Sep, [facility] [place] [facility] [address] [id number] [place] [address]- 8318 Sep, [facility] [place] [facility] [address] [id number] [place] [address]- 7874 Sep, [facility] [place] [facility] [address] [id number] [place] [address]- 4485 Aug, [facility] [place] [facility] [address] [id number] [place] [address]- 5344 Aug, [facility] [place] [facility] [address] [id number] [place] [address]- 7555 Aug, [facility] [place] [facility] [address] [id number] [place] [address]- 6976 Aug, [facility] [place] [facility] [address] [id number] [place] [address]- 9222 Aug, [facility] [place] [facility] [address] [id number] [place] [address]- 5862 Aug, [facility] [place] [facility] [address] [id number] [place] [address]- 3476 Aug, [facility] [place] [facility] [address] [id number] [place] [address]- 6592 Jul, [facility] [place] [facility] [address] [id number] [place] [address]- 7188 Jun, [facility] [place] [facility] [address] [id number] [place] [address]- 3989 Jun, [facility] [place] [facility] [address] [id number] [place] [address]- 9603 Jun, [facility] [place] [facility] [address] [id number] [place] [address]- 8928 Jun, [facility] [address] [id number] [place] [address]- 2610 Jun, [facility] [place] [facility] [address] [id number] [place] [address]- 3712 Jun, [facility] [place] [facility] [address] [id number] [place] [address]- 7085 May, [facility] [place] [facility] [address] [id number] [place] [address]- 2538 May, [facility] [address] [id number] [place] [address]- 0918 May, [facility] [place] [facility] [address] [id number] [place] [address]- 0763 May, [facility] [place] [facility] [address] [id number] [place] [address]- 2287 March, [facility] [place] [facility] [address] [id number] [place] [address]- 7979 March, [facility] [place] [facility] [address] [id number] [place] [address]- 4760 March, [facility] [place] [facility] [address] [id number] [place] [address]- 2610 Feb, [facility] [place] [facility] [address] [id number] [place] [address]- 5165 Feb, [facility] [place] [facility] [address] [id number] [place] [address]- 8244 Feb, [facility] [place] [facility] [address] [id number] [place] [address]- 4656 Feb, [facility] [place] [facility] [address] [id number] [place] [address]- 5309 Jan, [facility] [place] [facility] [address] [id number] [place] [address]- 3047 Jan, [facility] [place] [facility] [address] [id number] [place] [address]- 5753 Jan, [facility] [address] [id number] [place] [address]- 6106 Dec, [facility] [address] [id number] [place] [address] 2546 14 Dec, 2012 [facility] [address] [id number] [place] [address] 2546 Dec, [facility] [address] [id number] [place] [address] 2546 05 Dec, 2012 [facility] [address] [id number] [place] [address]- 5136 04 Dec, 2012 [facility] [address] [id number] [place] [address]- 1485 Nov, [facility] [address] [id number] [place] [address] 2544 Nov, [facility] [address] [id number] [place] [address]- 3498 Nov, [facility] [address] [id number] [place] [address]- 4564 Nov, [facility] [address] [id number] [place] 6302 Oct, [facility] [address] [id number] [place] [address] 2546 Oct, [facility] [address] [id number] [place] [address] 2546 Oct, [facility] [place] [facility] [address] [id number] [place] [address] 2546 Oct, [facility] [address] [id number] [place] [address] 2546 Oct, [facility] [address] [id number] [place] [address]- 1943 Oct, [facility] [place] [facility] [address] [id number] [place] [address]- 1650 Oct, [facility] [place] [facility] [address] [id number] [place] [address]- 7296 Oct, [facility] [place] [facility] [address] [id number] [place] [address]- 7276 Oct, [facility] [place] [facility] [address] [id number] [place] [address]- 0516 Oct, [facility] [place] [facility] [address] [id number] [place] [address]- 2582 Oct, [facility] [place] [facility] [address] [id number] [place] [address]- 8276 Oct, [facility] [place] [facility] [address] [id number] [place] [address]- 8359 Oct, [facility] [place] [facility] [address] [id number] [place] [address]- 8204 Sep, [facility] [place] [facility] [address] [id number] [place] [address] Sep, [facility] [place] [facility] [address] [id number] [place] [address] Sep, [facility] [place] [facility] [address] [id number] [place] [address] Sep, [facility] [place] [facility] [address] [id number] [place] [address] Sep, [facility] [place] [facility] [address] [id number] [place] [address] Sep, [facility] [place] [facility] [address] [id number] [place] [address] Sep, [facility] [place] [facility] [address] [id number] [place] [address] Sep, [facility] [place] [facility] [address] [id number], [place] [address] Sep, [facility] [place] [facility] [address] [id number] [place] [address] Sep, [facility] [place] [facility] [address] [id number], [place] [address] Sep, [facility] [place] [facility] [address] [id number] [place] [address] Sep, [facility] [place] [facility] [address] [id number] [place] [address] Aug, [facility] [place] [facility] [address] [id number] [place] [address] Aug, [facility] [place] [facility] [address] [id number] [place] [address] Aug, [facility] [place] [facility] [address] [id number], [place] [address] Aug, [facility] [place] [facility] [address] [id number], [place] [address] Aug, [facility] [place] [facility] [address] [id number] [place] [address]- [address] Aug, [facility] [place] [facility] [address] [facility] [id number], [place] [address] Aug, [facility] [place] [facility] [address] [id number], [place] [address] Aug, [facility] [place] [facility] [address] [id number], [place] [address] Aug, [facility] [place] [facility] [address] [id number], [place] [address] Aug, [facility] [place] [facility] [address] [facility] [id number], [place] [address] Aug, [facility] [place] [facility] [address] [facility] [id number], [place] [address] Aug, [facility] [place] [facility] [address] [id number] [place] [address] 28 Jul, 2011 [facility] [place] [facility] [address] [id number] [place] [address] 27 Jul, 2011 [facility] [place] [facility] [address] [id number] [place] [address] 21 Jul, 2011 [facility] [place] [facility] [address] [id number] [place] [address] 10 Jul, 2011 [facility] [place] [facility] [address] [id number] [place] [address] 05 Jul, 2011 [facility] [place] [facility] [address] [id number] [place] [address] 04 Jul, 2012 [facility] [place] [facility] [address] [id number] [place] [address] Jun, [facility] [place] [facility] [address] [id number] [place] [address] Jun, [facility] [place] [facility] [address] [id number] [place] [address] Jun, [facility] [place] [facility] [address] [id number] [place] [address] May, [facility] [place] [facility] [address] [id number] [place] [address] May, [facility] [place] [facility] [address] [id number] [place] [address] 14 May, 2012 [facility] [place] [facility] [address] [id number] [place] [address] May, [facility] [place] [facility] [address] [id number] [place] [address] May, [facility] [place] [facility] [address] [id number] [place] [address] May, [facility] [place] [facility] [address] [id number] [place] [address] 30 Apr, 2012 [facility] [place] [facility] [address] [id number] [place] [address] 23 Feb, 2012 [facility] [place] [facility] [address] [facility] [id number] [place] [address] 18 Feb, 2012 [facility] [place] [facility] [id number] [address] 11 Feb, 2012 [facility] [place] [facility] [address] [facility] [id number] [place] [address] 10 Feb, 2012 [facility] [place] [facility] [address] [facility] [id number] [place] [address]255 16 Jan, 2012 [facility] [place] [facility] [address] [id number] [address] 12 Jan, 2012 [facility] [place] [facility] [address]00565[address] [place] [address] 29 Dec, 2011 [facility] [place] [facility] [address] [facility] [id number] [place] [address] 28 Dec, 2011 [facility] [place] [facility] [address]00565[address] [address] 21 Dec, 2011 [facility] [place] [facility] [address]65[address] [address] 14 Dec, 2011 [facility] [place] [facility] [address]65[address] [address] 14 Dec, 2011 [facility] [place] [facility] [address] [id number] [place] [address] 13 Dec, 2011 [facility] [place] [facility] [address] [id number] [place] [address] 09 Dec, 2011 [facility] [place] [facility] [address] [id number] [place] [address] [address] 07 Dec, 2011 [facility] [place] [facility] [address]65[address] [address] 02 Dec, 2011 [facility] [place] [facility] [address] [id number] [place] [address] 30 Nov, 2011 [facility] [address] [id number] [place] [address] Nov, [facility] [place] [facility] [address] [id number] [place] [address] Nov, [facility] [address] [id number] [place] [address]181 Nov, [facility] [address] [id number] [place] [address] 17 Nov, 2011 [facility] [address] [id number] [place] [address]368 Nov, [facility] [address] [id number] [place] [address] Nov, [facility] [address] [id number] [place] [address] Nov, [facility] [address] [id number] [place] [address] Nov, [facility] [address] [id number] [place] [address] Oct, [facility] [address] [id number] [place] [address] Oct[facility] [place] [facility] [address] [id number] [place] [address] 6066 Oct, [facility] [place] [facility] [address] [id number] [place] [address] Oct, [facility] [place] [facility] [address] [id number] [place] [address] Oct, [facility] [place] [facility] [address] [id number] [place] [address] 8946 Oct, [facility] [place] [facility] [address] [id number] [place] [address] 9[address] Sep, [facility] [place] [facility] [address] [id number] [place] [address] 19 Aug, 2011 [facility] [place] [facility] [address] [id number] [place] [address] 1136 19 Jul, 2011 [facility] [place] [facility] [address] [id number] [place] [address] 2546 17 Nov, 2010 [facility] [place] [facility] [address] [id number] [place] [address] 3608 10 Nov, 2010 [facility] [place] [facility] [address] [id number] [place] [address] Oct, [facility] [place] [facility] [address] [id number] [place] [address] 8[address] Sep, [facility] [place] [facility] [address] [id number] [place] [address] 93[address] Sep, [facility] [place] [facility] [address] [id number] [place] [address] 4[address] 18 Aug, 2010 [facility] [place] [facility] [address] [id number] [place] [address]- 9274 14 Aug, 2010 [facility] [place] [facility] [address] [id number] [place] [address] 14 Aug, 2010 [facility] [place] [facility] [address] [id number], [place] [address] 13 Feb, 2010 [facility] [place] [facility] [address] [id number], [place] [address] 10 Dec, 2009 [facility] [place] [facility] [address] [id number] [place] [address]- 9580 30 Oct, 2009 [facility] [place] [facility] [address] [id number] [place] [address]- 5686 Oct, [facility] [place] [facility] [address] [id number] [place] [address]- 2546 Oct, [facility] [place] [facility] [address] [facility] [id number] [place] [address] Sep, [facility] [address] [facility] [id number], [place] [address] Sep, [facility] [address] [facility] [id number][place] [address] Sep, [facility] [address] [facility] [id number], [place] [address] Aug, [facility] [address] [facility] [id number], [place] [address] Aug, IMMUNIZATIONS No Known Immunizations SOCIAL HISTORY Never Assessed REASON FOR VISIT painful cramping PLAN OF CARE VITAL SIGNS MEDICATIONS Medication Instructions Dosage Frequency Start Date End Date Duration Status Diclofenac Sodium 75 MG Orally Twice a [...] History EGD Hospitalization History mental health issues [address] in [place] 2016 & 02/2017 Hospitalization History Surgery(s)/Childbirth(s)
--- OUTSIDE RECORDS SUMMARY | 2018-08-03 08:32 | XMS REPORT ---
Author Author RACHAEL CHEATHAM Organization [facility] Address [address] [place] [address] Care Team Providers Care Associate Application Developer Name Role Phone RACHAEL CHEATHAM Unavailable PROBLEMS Type Condition ICD9-CM Code [id number] Code Onset Dates Condition Status SNOMED Code Problem Adjustment disorder with mixed anxiety and depressed mood F43.23 Active 63551813 Problem Bipolar 1 disorder F31.9 Active 748857457 Problem Schizo affective schizophrenia F25.0 Active 275103905 Problem Dysmenorrhea N94.6 Active 960771528 Problem Morbid obesity due to excess calories E66.01 Active 529195264 Problem Cannabis use disorder, mild, abuse F12.10 Active 99373577 Problem Sciatica, unspecified side M54.30 Active 99568997 Problem Other chronic pain G89.29 Active 06754526 Problem Lumbago with sciatica, right side M54.41 Active 383370147 Problem Anxiety F41.9 Active 37525646 Problem PTSD (post-traumatic stress disorder) F43.10 Active 91135754 Problem Borderline personality disorder F60.3 Active 91847932 Problem Severe episode of recurrent major depressive disorder, with psychotic features F33.3 Active 73993966 Problem Night terror F51.4 Active 10593272 Problem Mood disorder F39 Active 32071775 ALLERGIES No Information ENCOUNTERS Encounter Location Date Diagnosis [facility] [id number], [place] [address] Jun, [facility] [id number] [address] Jun, PTSD (post-traumatic stress disorder) F43.10 [facility] [id number] [address] Jun, [place] adverse reaction T43.595A and Sprain of anterior talofibular ligament of left ankle, initial encounter S93.492A [facility] [address], [place] [address] Jun, [facility] [id number] [place] [address] 89579- 7732 May, [facility] [id number] [place] [address] 52353- 5254 May, Skin tags, multiple acquired L91.8 ; Dysmenorrhea N94.6 and Acute non-recurrent maxillary sinusitis J01.00 [facility] [id number] [place] [address] 38380- 9463 May, PTSD (post-traumatic stress disorder) F43.10 [facility] [id number] [place] [address] 05747- 2383 May, Other half-way (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 [facility] [id number] [place] [address] 28915- 2443 May, PTSD (post-traumatic stress disorder) F43.10 ; Mood disorder F39 ; Borderline personality disorder F60.3 and Cannabis use disorder, mild, abuse F12.10 [place] [id number] [place] [address] 75482- 5819 May, BMI 40.0-44.9, adult Z68.41 [place] [id number] [place] [address] 22704- 0419 18 Apr, 2018 BMI 40.0-44.9, adult Z68.41 [place] [id number] [place] [address] 50124- 1539 14 Apr, 2018 Acute non-recurrent maxillary sinusitis J01.00 [facility] [id number] [place] [address] 60916- 6261 Apr, PTSD (post-traumatic stress disorder) F43.10 ; Mood disorder F39 ; Borderline personality disorder F60.3 ; Cannabis use disorder, mild, abuse F12.10 and Other manager long term care (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 [place] [address], [place] [address] Apr, [address] [place] [address] 55679- 4925 Apr, Annual physical exam Z00.00 and High risk medication use Z79.899 [place] [id number] [place] [address] 50436- 0680 Apr, PTSD (post-traumatic stress disorder) F43.10 [place] [address] [address] 8[address] Apr, [place] [id number] [place] [address] 61132- 2564 March, BMI 40.0-44.9, adult Z68.41 ; Morbid obesity due to excess calories E66.01 ; Lumbago with sciatica, right side M54.41 and Other chronic pain G89.29 [address] [address] 18[address] March, PTSD (post-traumatic stress disorder) F43.10 [address], [place] [address] 15[address] March, PTSD (post-traumatic stress disorder) F43.10 ; Mood disorder F39 ; Borderline personality disorder F60.3 and Cannabis use disorder, mild, abuse F12.10 [address] [address] 89[address] Feb, [facility] [facility] [id number] [address] Feb, [facility] [address] [place] [id number] [place] [address] Feb, Breast cancer screening Z12.31 [address] [address] 26[address] Feb, Mood disorder F39 and PTSD (post-traumatic stress disorder) F43.10 [place] [id number] [place] [address] 29226- 2086 Feb, PTSD (post-traumatic stress disorder) F43.10 ; Mood disorder F39 ; Borderline personality disorder F60.3 and Cannabis use disorder, mild, abuse F12.10 [place] [id number] [place] [address] 71597- 9325 Feb, Schizo affective schizophrenia F25.0 ; Adjustment disorder with mixed anxiety and depressed mood F43.23 ; Night terror F51.4 ; Anxiety F41.9 and Borderline personality disorder F60.3 [place] [address] [address]- 4782 Feb, [place] [address] 19567- 3093 Feb, Mood disorder F39 [place] [address] 02733- 1788 Feb, Annual physical exam Z00.00 ; BMI 40.0-44.9, adult Z68.41 and Nipple discharge N64.52 [place] [address] [address]34- 1713 Jan, Schizo affective schizophrenia F25.0 ; Adjustment disorder with mixed anxiety and depressed mood F43.23 ; Night terror F51.4 ; Anxiety F41.9 and Borderline personality disorder F60.3 [place] [id number] [place] [address] 73556- 2201 Jan, Mood disorder F39 ; PTSD (post-traumatic stress disorder) F43.10 ; Borderline personality disorder F60.3 and High risk medication use Z79.899 [place] [address] 15265- 2175 Dec, Anxiety F41.9 and Borderline personality disorder F60.3 [place] [address] 30998- 9163 Dec, [place] [id number] [place] [address] 81432- 4000 Dec, Anxiety F41.9 and Borderline personality disorder F60.3 [facility] [id number] [place] [address] 99505- 2817 Dec, [facility] [id number] [place] [address] 27612- 6052 Dec, [facility] [id number] [place] [address] 68536- 2042 Nov, Acute non-recurrent maxillary sinusitis J01.00 ; Mood disorder F39 and Sciatica, unspecified side M54.30 [facility] [id number] [place] [address] 85813- 8825 Nov, Mood disorder F39 ; PTSD (post-traumatic stress disorder) F43.10 and Borderline personality disorder F60.3 [place] [id number] [place] [address] 18442- 6984 Nov, Anxiety F41.9 and Borderline personality disorder F60.3 [facility] [id number] [place] [address] 79779- 6664 Nov, [facility] [id number] [place] [address] 67815- 2545 Nov, Anxiety F41.9 and Sciatica, unspecified side M54.30 [facility] [id number] [place] [address] 96444- 8862 Oct, Anxiety F41.9 [facility] [address] [place] [address] 76322- 0423 Oct, Mood disorder F39 ; PTSD (post-traumatic stress disorder) F43.10 ; Borderline personality disorder F60.3 and High risk medication use Z79.899 [facility] [address] [place] [address] [id number] 11 Oct, 2017 Dental caries K02.9 and Dental examination Z01.20 [facility] [address], [place] [address]- 5098 Sep, Dysuria R30.0 and Abdominal pain, right lower quadrant R10.31 [facility] [id number] [place] [address] 47331- 7826 Aug, Mood disorder F39 ; PTSD (post-traumatic stress disorder) F43.10 and Borderline personality disorder F60.3 [facility] [id number] [place] [address] 73823- 7331 Aug, [facility] [id number] [place] [address] 23360- 3144 Aug, [facility] [id number] [place] [address] 00950- 4445 Aug, Severe episode of recurrent major depressive disorder, with psychotic features F33.3 ; PTSD (post-traumatic stress disorder) F43.10 ; Adjustment disorder with mixed anxiety and depressed mood F43.23 and Borderline personality disorder F60.3 [facility] [id number] [place] [address] 24959- 7018 Aug, Mood disorder F39 ; PTSD (post-traumatic stress disorder) F43.10 and Borderline personality disorder F60.3 [facility] [id number] [place] [address] 07104- 7577 Aug, [facility] [id number] [place] [address] 06188- 8647 Aug, Bipolar 1 disorder F31.9 and Schizo affective schizophrenia F25.0 [facility] [id number] [place] [address] 16800- 8299 Aug, Mood disorder F39 [facility] [id number] [place] [address] 44851- 9156 Aug, Bipolar 1 disorder F31.9 and Schizo affective schizophrenia F25.0 [facility] [id number] [place] [address] 76682- 0984 Aug, Bipolar 1 disorder F31.9 and Schizo affective schizophrenia F25.0 [facility] [address], [place] [address]- 9018 Aug, [facility] [id number] [place] [address] 56365- 4312 Aug, PTSD (post-traumatic stress disorder) F43.10 and Borderline personality disorder F60.3 [place] [id number] [place] [address] 45521- 8674 Aug, [place] [id number] [place] [address] 07166- 1252 Aug, Mood disorder F39 ; PTSD (post-traumatic stress disorder) F43.10 ; Borderline personality disorder F60.3 and Adjustment disorder with mixed anxiety and depressed mood F43.23 [place] [id number] [place] [address] 13778- 0173 Jul, [place] [id number] [place] [address] 54641- 1286 Jul, Mood disorder F39 ; PTSD (post-traumatic stress disorder) F43.10 and Borderline personality disorder F60.3 [place] [id number] [place] [address] 23148- 2139 Jul, [place] [id number] [place] [address] 42766- 3193 Jun, Anxiety F41.9 ; ADHD (attention deficit hyperactivity disorder) F90.9 ; Night terror F51.4 ; Bulimia F50.2 ; Severe episode of recurrent major depressive disorder, with psychotic features F33.3 and PTSD ( post-traumatic stress disorder) F43.10 [place] [id number] [place] [address] 50957- 5702 Jun, Borderline personality disorder F60.3 ; Mood disorder F39 and PTSD (post-traumatic stress disorder) F43.10 [place] [id number] [place] [address] 84855- 7401 Jun, Anxiety F41.9 [facility] [id number] [place] [address] 97695- 4658 Jun, Anxiety F41.9 ; ADHD (attention deficit hyperactivity disorder) F90.9 ; Night terror F51.4 ; Bulimia F50.2 ; Severe episode of recurrent major depressive disorder, with psychotic features F33.3 and PTSD ( post-traumatic stress disorder) F43.10 [facility] [id number] [place] [address] 85207- 7989 Jun, ADHD (attention deficit hyperactivity disorder) F90.9 ; Night terror F51.4 ; Bulimia F50.2 ; Anxiety F41.9 ; Severe episode of recurrent major depressive disorder, with psychotic features F33.3 and PTSD ( post-traumatic stress disorder) F43.10 [place] [id number] [place] [address] 93539- 5976 May, Anxiety F41.9 [place] [address] 93954- 4194 May, PTSD (post-traumatic stress disorder) F43.10 and Borderline personality disorder F60.3 [place] [id number] [place] [address] 00607- 8710 Apr, [facility] [address] [id number] March, Dental examination Z01.20 and Dental caries K02.9 [facility] [id number] [place] [address] 16106- 0388 March, Dental examination Z01.20 [facility] [address] 26073- 9383 March, Tooth abscess K04.7 and Tooth pain K08.89 [place] [id number] [place] [address] 45077- 2787 March, Borderline personality disorder F60.3 [facility] [address] 40100- 8747 March, ADHD (attention deficit hyperactivity disorder) F90.9 ; Night terror F51.4 ; Bulimia F50.2 and Anxiety F41.9 [facility] [id number] [place] [address] 48664- 5114 Feb, Borderline personality disorder F60.3 ; ADHD (attention deficit hyperactivity disorder) F90.9 ; Anxiety F41.9 ; Bulimia F50.2 ; Obsessive-compulsive disorder, unspecified type F42.9 and Night terror F51.4 [facility] [id number] [place] [address] 22762- 2822 Feb, [facility] [id number] [place] [address] 42105- 4580 Feb, [facility] [id number] [place] [address] 40277- 5991 Jul, [facility] [id number] [place] [address] 03235- 1174 Jul, [facility] [id number] [place] [address] 47561- 8862 Jul, [facility] [id number] [place] [address] 73215- 1245 Jul, [facility] [address] [place] [address] 85150- 1921 Jun, [facility] [id number] [place] [address] 62295- 6992 Jun, [facility] [id number] [place] [address] 95246- 1710 Jun, [facility] [id number] [place] [address] 89782- 6427 Jun, [facility] [id number] [place] [address] 85025- 1737 Apr, [facility] [id number] [place] [address]- 4032 Apr, [facility] [address] [id number] [place] [address]- 0546 March, [facility] [place] [facility] [address] [id number] [place] 2072 March, [facility] [place] [facility] [address] [id number] [place] [address]- 8568 Jan, [facility] [place] [facility] [address] [id number] [place] [address]- 3799 Jan, [facility] [place] [facility] [address] [id number] [place] [address]- 3394 Jan, [facility] [place] [facility] [address] [id number] [place] [address]- 2927 Jan, [facility] [place] [facility] [address] [id number] [place] [address]- 3625 Jan, [facility] [place] [facility] [address] [id number] [place] [address]- 2144 Dec, [facility] [place] [facility] [address] [id number] [place] [address]- 8004 Dec, [facility] [place] [facility] [address] [id number] [place] [address]- 7046 Oct, [facility] [place] [facility] [address] [id number] [place] [address]- 1486 Oct, [facility] [place] [facility] [address] [id number] [place] [address]- 1164 Oct, [facility] [place] [facility] [address] [id number] [place] [address]- 0862 Oct, [facility] [place] [facility] [address] [id number] [place] [address]- 3886 Sep, [facility] [place] [facility] [address] [id number] [place] [address]- 1429 Sep, [facility] [place] [facility] [address] [id number] [place] [address]- 9738 Sep, [facility] [place] [facility] [address] [id number] [place] [address]- 9549 Aug, [facility] [place] [facility] [address] [id number] [place] [address]- 1956 Aug, [facility] [place] [facility] [address] [id number] [place] [address]- 1687 Aug, [facility] [place] [facility] [address] [id number] [place] [address]- 7717 Aug, [facility] [place] [facility] [address] [id number] [place] [address]- 6788 Aug, [facility] [place] [facility] [address] [id number] [place] [address]- 2251 Aug, [facility] [place] [facility] [address] [id number] [place] [address]- 2732 Aug, [facility] [place] [facility] [address] [id number] [place] [address]- 3727 Jul, [facility] [place] [facility] [address] [id number] [place] [address]- 3367 Jun, [facility] [place] [facility] [address] [id number] [place] [address]- 1088 Jun, [facility] [place] [facility] [address] [id number] [place] [address]- 2384 Jun, [facility] [place] [facility] [address] [id number] [place] [address]- 4522 Jun, [facility] [place] [facility] [address] [id number] [place] [address]- 8537 Jun, [facility] [place] [facility] [address] [id number] [place] [address]- 9321 Jun, [facility] [place] [facility] [address] [id number] [place] [address]- 2160 May, [facility] [address] [id number] [place] [address]- 9788 May, [facility] [place] [facility] [address] [id number] [place] [address]- 4461 May, [facility] [place] [facility] [address] [id number] [place] [address]- 9241 May, [facility] [place] [facility] [address] [id number] [place] [address]- 1464 March, [facility] [address] [id number] [place] [address]- 6214 March, [facility] [place] [facility] [address] [id number] [place] [address]- 9380 March, [facility] [address] [id number] [place] [address]- 3684 Feb, [facility] [place] [facility] [address] [id number] [place] [address]- 1681 Feb, [facility] [address] [id number] [place] [address]- 0084 Feb, [facility] [place] [facility] [address] [id number] [place] [address]- 6024 Feb, [facility] [place] [facility] [address] [id number] [place] [address]- 1109 Jan, [facility] [place] [facility] [address] [id number] [place] [address]- 6629 Jan, [facility] [place] [facility] [address] [id number] [place] [address]- 8045 Jan, [facility] [place] [facility] [address] [id number] [place] 4847 Dec, [facility] [place] [facility] [address] [id number] [place] [address]- 2583 14 Dec, 2012 [facility] [place] [facility] [address] [id number] [place] [address]- 6376 12 Dec, 2012 [facility] [address] [id number] [place] [address]- 8836 05 Dec, 2012 [facility] [place] [facility] [address] [id number] [place] [address] 2546 04 Dec, 2012 [facility] [address] [id number] [place] [address]- 7436 31 Nov, 2012 [facility] [place] [facility] [address] [id number] [place] [address] 2542 Nov, [facility] [address] [id number] [place] [address]- 3156 Nov, [facility] [address] [id number] [place] [address]- 4126 Nov, [facility] [address] [id number] [place] [address]- 8591 Oct, [facility] [address] [id number] [place] [address]- 7479 Oct, [facility] [address] [id number] [place] [address]- 6891 Oct, [facility] [address] [id number] [place] [address] 2546 Oct, [facility] [address] [id number] [place] [address]- 2546 Oct, [facility] [place] [facility] [address] [id number] [place] [address] 2546 Oct, [facility] [place] [facility] [address] [id number] [place] [address] 2546 Oct, [facility] [place] [facility] [address] [id number] [place] [address] 2546 Oct, [facility] [place] [facility] [address] [id number] [place] [address]- 9043 Oct, [facility] [place] [facility] [address] [id number] [place] [address]- 6915 Oct, [facility] [place] [facility] [address] [id number] [place] [address]- 4566 Oct, [facility] [place] [facility] [address] [facility] [id number] [place] [address]- 0095 Oct, [facility] [place] [facility] [address] [id number] [place] [address]- 6161 Oct, [facility] [place] [facility] [address] [id number] [place] [address]- 2978 Sep, [facility] [place] [facility] [address] [id number] [place] [address]- 9944 Sep, [facility] [place] [facility] [address] [id number] [place] [address]- 8564 Sep, [facility] [place] [facility] [address] [id number] [place] [address]- 7092 Sep, [facility] [place] [facility] [address] [id number] [place] [address]- 6891 Sep, [facility] [place] [facility] [address] [id number] [place] [address] Sep, [facility] [place] [facility] [address] [id number], [place] [address] Sep, [facility] [place] [facility] [address] [id number], [place] [address] Sep, [facility] [place] [facility] [address] [id number] [place] [address] Sep, [facility] [place] [facility] [address] [facility] [id number], [place] [address] Sep, [facility] [place] [facility] [address] [facility] [id number], [place] [address] Sep, [facility] [place] [facility] [address] [id number] [place] [address] Sep, [facility] [place] [facility] [address] [id number] [place] [address] Aug, [facility] [place] [facility] [address] [id number] [place] [address] Aug, [facility] [place] [facility] [address] [id number] [place] [address] Aug, [facility] [place] [facility] [address] [id number] [place] [address] Aug, [facility] [place] [facility] [address] [id number] [place] [address] Aug, [facility] [place] [facility] [address] [id number] [place] [address] Aug, [facility] [place] [facility] [address] [id number] [place] [address] Aug, [facility] [place] [facility] [address] [id number] [place] [address] Aug, [facility] [place] [facility] [address] [id number] [place] [address] Aug, [facility] [place] [facility] [address] [id number] [place] [address] Aug, [facility] [place] [facility] [address] [id number] [place] [address] Aug, [facility] [place] [facility] [address] [id number] [place] [address] Aug, [facility] [place] [facility] [address] [id number] [place] [address] 28 Jul, 2012 [facility] [place] [facility] [address] [id number] [place] [address] 27 Jul, 2012 [facility] [place] [facility] [address] [id number] [place] [address] Jul, [facility] [place] [facility] [address] [id number] [place] [address] Jul, [facility] [place] [facility] [address] [id number] [place] [address] Jul, [facility] [place] [facility] [address] [id number] [place] [place] [address] Jul, [facility] [place] [facility] [address] [id number] [place] [address] Jun, [facility] [place] [facility] [address] [id number] [place] [address] Jun, [facility] [place] [facility] [address] [id number] [place] [address] Jun, [facility] [place] [facility] [address] [id number] [place] [address] May, [facility] [place] [facility] [address] [id number] [place] [address] May, [facility] [place] [facility] [address] [id number] [place] [address] May, [facility] [place] [facility] [address] [id number] [place] [address] May, [facility] [place] [facility] [address] [id number] [place] [address] May, [facility] [place] [facility] [address] [id number] [place] [address] May, [facility] [place] [facility] [address] [id number] [place] [address] Apr, [facility] [place] [facility] [address] [id number] [place] [address] Feb, [facility] [place] [facility] [address] [id number] [place] [address] Feb, [facility] [place] [facility] [address] [id number] [place] [address] 11 Feb, 2012 [facility] [place] [facility] [address] [id number] [place] [address] 10 Feb, 2012 [facility] [place] [facility] [address] [id number] [place] [address]46 16 Jan, 2012 [facility] [place] [facility] [address] [id number] [place] [address] 12 Jan, 2012 [facility] [place] [facility] [address] [id number] [place] [address] 2545 29 Dec, 2011 [facility] [place] [facility] [address] [id number] [place] [address] 28 Dec, 2011 [facility] [place] [facility] [address] [id number] [place] [address] 21 Dec, 2011 [facility] [place] [facility] [address] [facility] [id number] [place] [address] 14 Dec, 2011 [facility] [place] [facility] [address] [id number] [place] [address] 14 Dec, 2011 [facility] [place] [facility] [address] [facility] [id number] [place] [address] 13 Dec, 2011 [facility] [place] [facility] [address] [facility] [id number] [place] [address] 29[address] 09 Dec, 2011 [facility] [place] [facility] [address] [facility] [id number] [place] [address] 2546 07 Dec, 2011 [facility] [place] [facility] [address] [facility] [id number] [place] [address] 130[address] 02 Dec, 2011 [facility] [place] [facility] [address] [id number] [place] [address]- [address] 30 Nov, 2011 [facility] [place] [facility] [address] [id number] [place] [address] Nov, [facility] [place] [facility] [address] [facility] [id number] [place] [address] 8769 Nov, [facility] [address] [id number] [place] [address] 48[address] Nov, [facility] [place] [facility] [address] [id number] [place] [address] 47[address] Nov, [facility] [place] [facility] [address] [id number] [place] [address] 16 Nov, 2011 [facility] [place] [facility] [address] [id number] [place] [address] 14[address] Nov, [facility] [address] [id number] [place] [address] 36[address] Nov, [facility] [place] [facility] [address] [id number] [place] [address]- [address] Nov, [facility] [place] [facility] [address] [id number] [place] [address] 12[address] Oct, [facility] [place] [facility] [address] [id number], [place] [address] Oct, [facility] [place] [facility] [address] [id number] [place] [address] Oct, [facility] [place] [facility] [address] [facility] [id number], [place] [address] Oct, [facility] [place] [facility] [address] [facility] [id number], [place] [address] Oct, [facility] [place] [facility] [address] [id number], [place] [address] Oct, [facility] [place] [facility] [address] [id number], [place] [address] Sep, [facility] [place] [facility] [address] [id number], [place] [address] Aug, [facility] [place] [facility] [address] [id number], [place] [address] Jul, [facility] [place] [facility] [address] [id number], [place] [address] 17 Nov, 2010 [facility] [address] [id number] [place] [address] 74[address] 10 Nov, 2010 [facility] [place] [facility] [address] [id number] [place] [address]- [address] 23 Oct, 2010 [facility] [place] [facility] [address] [facility] [id number] [place] [address]- 7984 10 Sep, 2010 [facility] [place] [facility] [address] [id number] [place] [address] Sep, [facility] [place] [facility] [address] [id number] [place] [address]- [address] 18 Aug, 2010 [facility] [place] [facility] [address] [id number] [place] [address]- [address] 14 Aug, 2010 [facility] [place] [facility] [address] [facility] [id number] [place] [address]- 8790 14 Aug, 2010 [facility] [place] [facility] [address] [facility] [id number] [place] [address]- 3[address] 13 Feb, 2010 [facility] [place] [facility] [address] [facility] [id number] [place] [address]- [address]596 10 Dec, 2009 [facility] [place] [facility] [address] [facility] [id number] [place] [address]- 72[address] 30 Oct, 2009 [facility] [place] [facility] [address] [id number] [place] [address] 46[address] Oct, [facility] [place] [facility] [address] [facility] [id number], [place] [address] Oct, [facility] [place] [facility] [address] [id number] [place] [address] 0572 Sep, [facility] [place] [facility] [address] [facility] [id number] [place] [address] Sep, [facility] [place] [facility] [address] [facility] [id number], [place] [address] Sep, [facility] [place] [facility] [address] [facility] [id number] [place] [address]- [address] 14 Aug, 2009 [facility] [address] [facility] [id number] [place] [address] Aug, IMMUNIZATIONS No Known Immunizations SOCIAL HISTORY Never Assessed REASON FOR VISIT PLAN OF CARE VITAL SIGNS MEDICATIONS Unknown [...] History EGD Hospitalization History mental health issues [address] in [place] 2016 & 02/2017 Hospitalization History Surgery(s)/Childbirth(s)
--- OUTSIDE RECORDS SUMMARY | 2018-08-03 08:32 | XMS REPORT ---
Author Author YESENIA Cervantes Organization [facility] Address [address] [address] Care Team Providers Care Engine Oiler Name Role Phone YESENIA Cervantes Unavailable PROBLEMS Type Condition ICD9-CM Code [id number] Code Onset Dates Condition Status SNOMED Code Problem Adjustment disorder with mixed anxiety and depressed mood F43.23 Active 58939174 Problem Bipolar 1 disorder F31.9 Active 974065227 Problem Schizo affective schizophrenia F25.0 Active 071603233 Problem Dysmenorrhea N94.6 Active 706345019 Problem Morbid obesity due to excess calories E66.01 Active 632505367 Problem Cannabis use disorder, mild, abuse F12.10 Active 99944407 Problem Sciatica, unspecified side M54.30 Active 38619582 Problem Other chronic pain G89.29 Active 16588458 Problem Lumbago with sciatica, right side M54.41 Active 656563368 Problem Anxiety F41.9 Active 60064227 Problem PTSD (post-traumatic stress disorder) F43.10 Active 88022340 Problem Borderline personality disorder F60.3 Active 95587496 Problem Severe episode of recurrent major depressive disorder, with psychotic features F33.3 Active 01610548 Problem Night terror F51.4 Active 23414939 Problem Mood disorder F39 Active 84348057 ALLERGIES No Information ENCOUNTERS Encounter Location Date Diagnosis [facility], [place] [address] [facility] [id number] [address] Jun, [facility], [place] [address], [place] [address] Jun, [facility], [place] [address] [id number], [place] [address] May, [facility], [place] [address] [id number], [place] [address] 27 May, 2018 Skin tags, multiple acquired L91.8 ; Dysmenorrhea N94.6 and Acute non-recurrent maxillary sinusitis J01.00 [place] [id number] [place] [address] 31328- 4046 27 May, 2018 PTSD (post-traumatic stress disorder) F43.10 [place] [id number] [place] [address] 96845- 8666 May, Other nursing home (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 [place] [id number] [place] [address] 94501- 4348 May, PTSD (post-traumatic stress disorder) F43.10 ; Mood disorder F39 ; Borderline personality disorder F60.3 and Cannabis use disorder, mild, abuse F12.10 [place] [id number] [place] [address] 02597- 8969 May, BMI 40.0-44.9, adult Z68.41 [place] [id number] [place] [address] 81222- 5328 18 Apr, 2018 BMI 40.0-44.9, adult Z68.41 [place] [id number] [place] [address] 68028- 9195 14 Apr, 2018 Acute non-recurrent maxillary sinusitis J01.00 [place] [id number] [place] [address] 83376- 2202 11 Apr, 2018 PTSD (post-traumatic stress disorder) F43.10 ; Mood disorder F39 ; Borderline personality disorder F60.3 ; Cannabis use disorder, mild, abuse F12.10 and 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 [place] [id number] [place] [address] 64766- 7491 08 Apr, 2018 [place] [id number] [place] [address] 71795- 4313 07 Apr, 2018 Annual physical exam Z00.00 and High risk medication use Z79.899 [place] [address], [place] [address] 7[address] Apr, PTSD (post-traumatic stress disorder) F43.10 [place] [id number] [place] [address] 39804- 1165 Apr, [place] [id number] [place] [address] 87832- 8833 March, BMI 40.0-44.9, adult Z68.41 ; Morbid obesity due to excess calories E66.01 ; Lumbago with sciatica, right side M54.41 and Other chronic pain G89.29 [place] [id number] [place] [address] 41566- 2544 March, PTSD (post-traumatic stress disorder) F43.10 [place] [id number] [place] [address] 22502- 3975 March, PTSD (post-traumatic stress disorder) F43.10 ; Mood disorder F39 ; Borderline personality disorder F60.3 and Cannabis use disorder, mild, abuse F12.10 [place] [address], [place] [address] 7[address] Feb, [place] [id number] [place] [address] 21782- 3763 Feb, [facility] [id number] [place] [address] Feb, Breast cancer screening Z12.31 [place] [id number] [place] [address] 02103- 3448 Feb, Mood disorder F39 and PTSD (post-traumatic stress disorder) F43.10 [place] [id number] [place] [address] 00070- 1402 Feb, PTSD (post-traumatic stress disorder) F43.10 ; Mood disorder F39 ; Borderline personality disorder F60.3 and Cannabis use disorder, mild, abuse F12.10 [place] [id number] [place] [address] 28128- 4465 Feb, Schizo affective schizophrenia F25.0 ; Adjustment disorder with mixed anxiety and depressed mood F43.23 ; Night terror F51.4 ; Anxiety F41.9 and Borderline personality disorder F60.3 [facility], [place] [address], [place] [address] Feb, [facility], [place] [id number] [place] [address] 66518- 4211 Feb, Mood disorder F39 [facility], [place] [id number] [place] [address] 48330- 2945 Feb, Annual physical exam Z00.00 ; BMI 40.0-44.9, adult Z68.41 and Nipple discharge N64.52 [place] [id number] [place] [address] 28262- 2298 Jan, Schizo affective schizophrenia F25.0 ; Adjustment disorder with mixed anxiety and depressed mood F43.23 ; Night terror F51.4 ; Anxiety F41.9 and Borderline personality disorder F60.3 [facility], [place] [address] [place] [address] 48106- 0598 Jan, Mood disorder F39 ; PTSD (post-traumatic stress disorder) F43.10 ; Borderline personality disorder F60.3 and High risk medication use Z79.899 [place] [address], [place] [address] 0[address] Dec, Anxiety F41.9 and Borderline personality disorder F60.3 [facility], [place] [id number] [place] [address] 09113- 1244 Dec, [facility], [place] [id number] [place] [address] 11718- 8950 Dec, Anxiety F41.9 and Borderline personality disorder F60.3 [facility], [place] [address], [place] [address] 3655 Dec, [facility], [place] [id number] [place] [address] 21717- 0878 Dec, [facility], [place] [id number] [place] [address] 40629- 3892 Nov, Acute non-recurrent maxillary sinusitis J01.00 ; Mood disorder F39 and Sciatica, unspecified side M54.30 [facility], [place] [id number] [place] [address] 23369- 1759 Nov, Mood disorder F39 ; PTSD (post-traumatic stress disorder) F43.10 and Borderline personality disorder F60.3 [facility], [place] [id number] [place] [address] 70457- 6624 Nov, Anxiety F41.9 and Borderline personality disorder F60.3 [facility], [place] [id number] [place] [address] 57966- 0139 Nov, [facility], [place] [id number] [place] [address] 76177- 8553 Nov, Anxiety F41.9 and Sciatica, unspecified side M54.30 [facility], [place] [id number] [place] [address] 44318- 3735 Oct, Anxiety F41.9 [facility], [place] [id number] [place] [address] 46160- 7143 Oct, Mood disorder F39 ; PTSD (post-traumatic stress disorder) F43.10 ; Borderline personality disorder F60.3 and High risk medication use Z79.899 [facility] [id number] [place] [address] [id number] 11 Oct, 2017 Dental caries K02.9 and Dental examination Z01.20 [facility], [place] [id number] [place] [address] 08389- 3333 13 Sep, 2017 Dysuria R30.0 and Abdominal pain, right lower quadrant R10.31 [facility], [place] [id number] [place] [address] 60400- 7972 Aug, Mood disorder F39 ; PTSD (post-traumatic stress disorder) F43.10 and Borderline personality disorder F60.3 [facility], [place] [address] [id number], [place] [address] 2286 Aug, [facility], [place] [id number] [place] [address] 70408- 8656 Aug, [facility], [place] [id number] [place] [address] 80569- 5626 Aug, Severe episode of recurrent major depressive disorder, with psychotic features F33.3 ; PTSD (post-traumatic stress disorder) F43.10 ; Adjustment disorder with mixed anxiety and depressed mood F43.23 and Borderline personality disorder F60.3 [facility], [place] [id number] [place] [address] 77340- 3556 Aug, Mood disorder F39 ; PTSD (post-traumatic stress disorder) F43.10 and Borderline personality disorder F60.3 [facility], [place] [id number] [place] [address] 41375- 6576 Aug, [facility], [place] [id number] [place] [address] 82863- 3000 Aug, Bipolar 1 disorder F31.9 and Schizo affective schizophrenia F25.0 [facility], [place] [id number] [place] [address] 84598- 6376 Aug, Mood disorder F39 [facility], [place] [id number] [place] [address] 85207- 3423 Aug, Bipolar 1 disorder F31.9 and Schizo affective schizophrenia F25.0 [facility], [place] [id number], [place] [address]- 1916 Aug, Bipolar 1 disorder F31.9 and Schizo affective schizophrenia F25.0 [facility], [place] [id number] [place] [address] 64603130- 5626 Aug, [facility], [place] [id number] [place] [address] 11584- 5666 Aug, PTSD (post-traumatic stress disorder) F43.10 and Borderline personality disorder F60.3 [facility], [place] [address], [place] [address]- 0505 Aug, [facility], [place] [id number] [place] [address] 28918- 0197 Aug, Mood disorder F39 ; PTSD (post-traumatic stress disorder) F43.10 ; Borderline personality disorder F60.3 and Adjustment disorder with mixed anxiety and depressed mood F43.23 [facility], [place] [id number] [place] [address] 27501- 9845 Jul, [facility], [place] [id number] [place] [address] 41883- 7523 Jul, Mood disorder F39 ; PTSD (post-traumatic stress disorder) F43.10 and Borderline personality disorder F60.3 [place] [id number] [place] [address] 63941- 8850 Jul, [place] [id number] [place] [address] 87095- 4816 Jun, Anxiety F41.9 ; ADHD (attention deficit hyperactivity disorder) F90.9 ; Night terror F51.4 ; Bulimia F50.2 ; Severe episode of recurrent major depressive disorder, with psychotic features F33.3 and PTSD ( post-traumatic stress disorder) F43.10 [place] [address], [place] [address]- 3739 Jun, Borderline personality disorder F60.3 ; Mood disorder F39 and PTSD (post-traumatic stress disorder) F43.10 [place] [address], [place] [address]- 5332 Jun, Anxiety F41.9 [facility], [place] [id number] [place] [address] 54700- 1621 Jun, Anxiety F41.9 ; ADHD (attention deficit hyperactivity disorder) F90.9 ; Night terror F51.4 ; Bulimia F50.2 ; Severe episode of recurrent major depressive disorder, with psychotic features F33.3 and PTSD ( post-traumatic stress disorder) F43.10 [facility], [place] [id number] [place] [address] 83526- 3723 Jun, ADHD (attention deficit hyperactivity disorder) F90.9 ; Night terror F51.4 ; Bulimia F50.2 ; Anxiety F41.9 ; Severe episode of recurrent major depressive disorder, with psychotic features F33.3 and PTSD ( post-traumatic stress disorder) F43.10 [facility], [place] [address] 40322- 0762 May, Anxiety F41.9 [place] [address] 96030- 8034 May, PTSD (post-traumatic stress disorder) F43.10 and Borderline personality disorder F60.3 [facility], [place] [id number] [place] [address] 54701- 7175 Apr, [facility] [address] [id number] March, Dental examination Z01.20 and Dental caries K02.9 [facility], [place] [address] 37138- 0343 March, Dental examination Z01.20 [facility], [place] [id number] [place] [address] 49288- 6316 March, Tooth abscess K04.7 and Tooth pain K08.89 [facility], [place] [id number] [place] [address] 57243- 8497 March, Borderline personality disorder F60.3 [facility], [place] [address] 52722- 9669 March, ADHD (attention deficit hyperactivity disorder) F90.9 ; Night terror F51.4 ; Bulimia F50.2 and Anxiety F41.9 [facility], [place] [id number] [place] [address] 87410- 4132 Feb, Borderline personality disorder F60.3 ; ADHD (attention deficit hyperactivity disorder) F90.9 ; Anxiety F41.9 ; Bulimia F50.2 ; Obsessive-compulsive disorder, unspecified type F42.9 and Night terror F51.4 [facility], [place] [address], [place] [address]- 6160 14 Feb, 2015 [facility], [place] [address], [place] [address]- 8097 Feb, [facility], [place] [address], [place] [address]- 5792 Jul, [facility], [place] [id number] [place] [address] 31560- 6674 Jul, [facility], [place] [id number], [place] [address]- 2078 Jul, [facility], [place] [id number] [place] [address] 63826- 4642 Jul, [facility], [place] [address], [place] [address]- 0421 Jun, [facility], [place] [address], [place] [address]- 6747 Jun, [facility], [place] [address], [place] [address]- 4792 Jun, [facility], [place] [address], [place] [address]- 0758 Jun, [facility], [place] [address], [place] [address]- 8413 Apr, [facility], [place] [address], [place] [address]- 2980 Apr, [facility], [place] [address], [place] [address]- 9588 March, [facility], [place] [address], [place] [address]- 8107 March, [facility] [place] [facility] [address] [id number] [place] [address]- 4191 Jan, [facility] [place] [facility] [address] [id number] [place] [address]- 3233 Jan, [facility] [place] [facility] [address] [id number] [place] [address]- 0278 Jan, [facility] [place] [facility] [address] [id number] [place] [address]- 2710 Jan, [facility] [place] [facility] [address] [id number] [place] [address]- 8511 Jan, [facility] [place] [facility] [address] [id number] [place] [address]- 2079 Dec, [facility] [place] [facility] [address] [id number] [place] [address]- 3609 Dec, [facility] [place] [facility] [address] [id number] [place] [address]- 9809 Oct, [facility] [place] [facility] [address] [id number] [place] [address]- 7942 Oct, [facility] [place] [facility] [address] [id number] [place] 9137 Oct, [facility] [place] [facility] [address] [id number] [place] [address]- 1531 Oct, [facility] [place] [facility] [address] [id number] [place] [address]- 8525 Sep, [facility] [place] [facility] [address] [id number] [place] [address]- 3476 Sep, [facility] [place] [facility] [address] [id number] [place] [address]- 4401 Sep, [facility] [place] [facility] [address] [id number] [place] [address]- 1948 Aug, [facility] [place] [facility] [address] [id number] [place] [address]- 3952 Aug, [facility] [place] [facility] [address] [id number] [place] [address]- 0872 Aug, [facility] [place] [facility] [address] [id number] [place] [address]- 8957 Aug, [facility] [place] [facility] [address] [id number] [place] [address]- 3620 Aug, [facility] [place] [facility] [address] [id number] [place] [address]- 3902 Aug, [facility] [place] [facility] [address] [id number] [place] [address]- 9729 Aug, [facility] [place] [facility] [address] [id number] [place] [address]- 6049 Jul, [facility] [place] [facility] [address] [id number] [place] [address]- 5784 Jun, [facility] [place] [facility] [address] [id number] [place] [address]- 7700 Jun, [facility] [place] [facility] [address] [id number] [place] [address]- 3604 Jun, [facility] [place] [facility] [address] [id number] [place] [address]- 7167 Jun, [facility] [place] [facility] [address] [id number] [place] [address]- 6048 Jun, [facility] [place] [facility] [address] [id number] [place] [address]- 0869 Jun, [facility] [place] [facility] [address] [id number] [place] [address]- 2808 May, [facility] [place] [facility] [address] [id number] [place] [address]- 3038 May, [facility] [place] [facility] [address] [id number] [place] [address]- 9472 May, [facility] [place] [facility] [address] [id number] [place] [address]- 2546 May, [facility] [address] [id number] [place] [address]- 6979 March, [facility] [address] [id number] [place] [address]- 4116 March, [facility] [address] [id number] [place] [address]- 9633 March, [facility] [address] [id number] [place] [address]- 7751 Feb, [facility] [address] [id number] [place] [address]- 2793 Feb, [facility] [address] [id number] [place] [address]- 1371 Feb, [facility] [address] [id number] [place] [address]- 1441 Feb, [facility] [address] [id number] [place] [address]- 2525 Jan, [facility] [address] [id number] [place] [address]- 9256 Jan, [facility] [address] [id number] [place] [address]- 4676 Jan, [facility] [address] [id number] [place] [address]- 2479 Dec, [facility] [address] [id number] [place] [address]- 3077 14 Dec, 2012 [facility] [place] [facility] [address] [id number] [place] [address]- 5946 Dec, [facility] [place] [facility] [address] [id number] [place] [address]- 2546 05 Dec, 2012 [facility] [address] [id number] [place] [address]- 6504 Dec, [facility] [address] [id number] [place] [address]- 1271 Nov, [facility] [place] [facility] [address] [id number] [place] [address]- 1816 Nov, [facility] [address] [id number] [place] [address]- 6096 Nov, [facility] [place] [facility] [address] [id number] [place] [address]- 7706 Nov, [facility] [address] [id number] [place] 0019 Oct, [facility] [place] [facility] [address] [id number] [place] [address]- 9830 Oct, [facility] [address] [id number] [place] [address]- 4321 Oct, [facility] [place] [facility] [address] [id number] [place] [address]- 5829 Oct, [facility] [place] [facility] [address] [id number] [place] [address] Oct, [facility] [place] [facility] [address] [id number] [place] [address] Oct, [facility] [place] [facility] [address] [id number] [place] [address] Oct, [facility] [place] [facility] [address] [id number] [place] [address] Oct, [facility] [place] [facility] [address] [id number] [place] [address] Oct, [facility] [place] [facility] [address] [id number] [place] [address] Oct, [facility] [place] [facility] [address] [id number] [place] [address] Oct, [facility] [place] [facility] [address] [id number] [place] [address] 07 Oct, 2012 [facility] [place] [facility] [address] [id number] [place] [address] Oct, [facility] [place] [facility] [address] [id number] [place] [address] Sep, [facility] [place] [facility] [address] [id number] [place] [address] Sep, [facility] [place] [facility] [address] [id number] [place] [address] Sep, [facility] [place] [facility] [address] [id number] [place] [address] Sep, [facility] [place] [facility] [address] [id number] [place] [address] Sep, [facility] [place] [facility] [address] [id number] [place] [address] Sep, [facility] [place] [facility] [address] [id number] [place] [address] Sep, [facility] [place] [facility] [address] [id number] [place] [address] Sep, [facility] [place] [facility] [address] [facility] [id number] [place] [address] Sep, [facility] [place] [facility] [address] [id number] [place] [address]- [address] Sep, [facility] [place] [facility] [address] [id number] [place] [address] Sep, [facility] [place] [facility] [address] [id number] [place] [address] Sep, [facility] [place] [facility] [address] [facility] [id number] [place] [address] Aug, [facility] [place] [facility] [address] [id number] [place] [address] Aug, [facility] [place] [facility] [address] [id number] [place] [address]- [address] Aug, [facility] [place] [facility] [address] [id number] [place] [address] Aug, [facility] [place] [facility] [address] [id number] [place] [address] 14 Aug, 2012 [facility] [place] [facility] [address] [id number] [place] [address]- [address] 14 Aug, 2012 [facility] [place] [facility] [address] [id number] [place] [address]- [address] Aug, [facility] [place] [facility] [address] [id number] [place] [address] Aug, [facility] [place] [facility] [address] [id number] [place] [address] Aug, [facility] [place] [facility] [address] [id number] [place] [address] Aug, [facility] [place] [facility] [address] [id number] [place] [address] Aug, [facility] [place] [facility] [address] [id number] [place] [address] 02 Aug, 2012 [facility] [place] [facility] [address] [id number] [place] [address] 28 Jul, 2012 [facility] [place] [facility] [address] [id number] [address]- 1130 27 Sep, 2011 [facility] [place] [facility] [address] [id number] [place] [address] 2011 [facility] [place] [facility] [address] [id number] [place] [address] 10 Sep, 2011 [facility] [place] [facility] [address] [id number] [place] [address] 05 Sep, 2011 [facility] [place] [facility] [address] [id number] [place] [address] Jul, [facility] [place] [facility] [address] [id number] [place] [address] Jun, [facility] [place] [facility] [address] [id number] [place] [address] Jun, [facility] [place] [facility] [address] [id number] [place] [address] Jun, [facility] [place] [facility] [address] [id number] [place] [address] May, [facility] [place] [facility] [address] [id number] [place] [address] May, [facility] [place] [facility] [address] [id number] [place] [address] May, [facility] [place] [facility] [address] [id number] [place] [address] May, [facility] [place] [facility] [address] [id number] [place] [address] May, [facility] [place] [facility] [address] [id number] [place] [address] May, [facility] [place] [facility] [address] [id number] [place] [address] Apr, [facility] [place] [facility] [address] [id number] [place] [address] Feb, [facility] [place] [facility] [address] [id number] [place] [address]99 18 Feb, 2012 [facility] [place] [facility] [address] [id number] [place] [address] 11 Feb, 2012 [facility] [place] [facility] [address] [id number] [place] [address] 1577 10 Feb, 2012 [facility] [place] [facility] [address] [id number] [place] [address] 16 Jan, 2012 [facility] [place] [facility] [address] [id number] [place] [address] Jan, [facility] [address] [id number] [place] [address] 29 Dec, 2011 [facility] [place] [facility] [address] [id number] [place] [address] Dec, [facility] [address] [id number] [place] [address] Dec, [facility] [place] [facility] [address] [id number] [place] [address] 14 Dec, 2011 [facility] [place] [facility] [address] [id number] [place] [address] 6736 14 Dec, 2011 [facility] [address] [facility] [id number] [place] [address] 13 Dec, 2011 [facility] [address] [facility] [id number] [place] [address]- [address]87 09 Dec, 2011 [facility] [address] [id number] [place] [address] 07 Dec, 2011 [facility] [address] [facility] [id number] [place] [address] 02 Dec, 2011 [facility] [place] [facility] [address] [facility] [id number] [place] [address] Nov, [facility] [place] [facility] [address] [id number] [place] [address]- 4567 Nov, [facility] [place] [facility] [address] [id number] [place] [address] Nov, [facility] [place] [facility] [address] [id number] [place] [address] Nov, [facility] [place] [facility] [address] [id number] [place] [address] Nov, [facility] [place] [facility] [address] [id number], [place] [address] Nov, [facility] [address] [id number] [place] [address] Nov, [facility] [place] [facility] [address] [id number] [place] [address]- [address] Nov, [facility] [address] [id number] [place] [address] 9317 Nov, [facility] [place] [facility] [address] [id number] [place] [address] Oct, [facility] [address] [id number] [place] [address] 49[address] Oct, [facility] [place] [facility] [address] [id number] [place] [address]236 Oct, [facility] [address] [facility] [id number] [place] [address]857 Oct, [facility] [place] [facility] [address] [id number] [place] [address] 42[address] Oct, [facility] [address] [id number] [place] [address]387 Oct, [facility] [place] [facility] [address] [id number] [place] [address]- 4565 Sep, [facility] [place] [facility] [address] [id number], [place] [address] Aug, [facility] [place] [facility] [address] [id number], [place] [address] Jul, [facility] [place] [facility] [address] [id number], [place] [address] Nov, [facility] [place] [facility] [address] [id number], [place] [address] Nov, [facility] [place] [facility] [address] [id number] [place] [address] 4737 Oct, [facility] [place] [facility] [address] [facility] [id number], [place] [address] 10 Sep, 2010 [facility] [place] [address] [facility] [id number], [place] [address] Sep, [facility] [place] [address] [facility] [id number], [place] [address] 18 Aug, 2010 [facility] [place] [address] [facility] [id number], [place] [address] 35[address] 14 Aug, 2010 [facility] [place] [address] [facility] [id number], [place] [address] 1614 14 Aug, 2010 [facility] [place] [address] [facility] [id number][place] [address] Feb, [facility] [place] [address] [facility] [id number], [place] [address] 4716 10 Dec, 2009 [facility] [place] [address] [id number], [place] [address] 30 Oct, 2009 [facility] [place] [address] [facility] [id number], [place] [address] Oct, [facility] [place] [address] [facility] [id number], [place] [address] Oct, [facility] [place] [address] [id number], [place] [address] Sep, [facility] [place] [address] [facility] [id number], [place] [address] Sep, [facility] [place] [address] [facility] [id number], [place] [address] Sep, [facility] [place] [address] [facility] [id number], [place] [address]- 1045 14 Aug, 2009 [facility] [place] [address] [facility] [id number], [place] [address] 14 Aug, 2009 IMMUNIZATIONS No Known Immunizations SOCIAL HISTORY Never Assessed REASON FOR VISIT mammogram order PLAN OF CARE VITAL SIGNS MEDICATIONS Unknown [...] mental health issues x2 Ward Unit in [place] 2016 & 02/2017 Hospitalization History Surgery(s)/Childbirth(s)
--- OUTSIDE RECORDS SUMMARY | 2018-08-03 08:33 | XMS REPORT ---
Author Author TESS CRAIG [facility] Address [address] [place] [address] Care Team Providers Care Hand Tile Maker Name Role Phone RAFATESS Unavailable PROBLEMS Type Condition ICD9-CM Code BRE73-EN Code Onset Dates Condition Status SNOMED Code Problem Adjustment disorder with mixed anxiety and depressed mood F43.23 Active 68027225 Problem Bipolar 1 disorder F31.9 Active 449484633 Problem Schizo affective schizophrenia F25.0 Active 711509853 Problem Dysmenorrhea N94.6 Active 870946017 Problem Morbid obesity due to excess calories E66.01 Active 521350592 Problem Cannabis use disorder, mild, abuse F12.10 Active 53875842 Problem Sciatica, unspecified side M54.30 Active 85188333 Problem Other chronic pain G89.29 Active 91281984 Problem Lumbago with sciatica, right side M54.41 Active 925517159 Problem Anxiety F41.9 Active 74177049 Problem PTSD (post-traumatic stress disorder) F43.10 Active 05506326 Problem Borderline personality disorder F60.3 Active 83406291 Problem Severe episode of recurrent major depressive disorder, with psychotic features F33.3 Active 98366389 Problem Night terror F51.4 Active 46241852 Problem Mood disorder F39 Active 88994298 ALLERGIES No Information ENCOUNTERS Encounter Location Date Diagnosis [facility] [id number] [address] Jun, [facility] [id number] [place] [address] 66148- 4649 May, Skin tags, multiple acquired L91.8 ; Dysmenorrhea N94.6 and Acute non-recurrent maxillary sinusitis J01.00 [facility] [id number], [place] [address] May, PTSD (post-traumatic stress disorder) F43.10 [address] [address] [place] [address] 65950- 1156 26 May, 2018 Other terminal system 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 [place] [id number] [place] [address] 18808- 0375 May, PTSD (post-traumatic stress disorder) F43.10 ; Mood disorder F39 ; Borderline personality disorder F60.3 and Cannabis use disorder, mild, abuse F12.10 [place] [id number] [place] [address] 89522- 6885 May, BMI 40.0-44.9, adult Z68.41 [id number] [place] [address] 57698- 1437 18 Apr, 2018 BMI 40.0-44.9, adult Z68.41 [id number] [place] [address] 15453- 4962 14 Apr, 2018 Acute non-recurrent maxillary sinusitis J01.00 [place] [id number] [place] [address] 93708- 7954 Apr, PTSD (post-traumatic stress disorder) F43.10 ; Mood disorder F39 ; Borderline personality disorder F60.3 ; Cannabis use disorder, mild, abuse F12.10 and Other senior care (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 [place] [id number] [place] [address] 77899- 8077 08 Apr, 2018 [place] [id number] [place] [address] 00520- 8635 07 Apr, 2018 Annual physical exam Z00.00 and High risk medication use Z79.899 [id number] [place] [address] 99310- 2622 07 Apr, 2018 PTSD (post-traumatic stress disorder) F43.10 [place] [id number] [place] [address] 41115- 8265 Apr, [place] [address] [address] 9560 March, BMI 40.0-44.9, adult Z68.41 ; Morbid obesity due to excess calories E66.01 ; Lumbago with sciatica, right side M54.41 and Other chronic pain G89.29 [place] [address] [address] March, PTSD (post-traumatic stress disorder) F43.10 [place] [id number] [place] [address] 34570- 4741 March, PTSD (post-traumatic stress disorder) F43.10 ; Mood disorder F39 ; Borderline personality disorder F60.3 and Cannabis use disorder, mild, abuse F12.10 [address] [address] [place] [address] 98032- 9523 Feb, [place] [id number] [place] [address] 67211- 2681 Feb, [facility] [address] [place] [id number] [place] [address] Feb, Breast cancer screening Z12.31 [address] [place] [address] 12253- 6200 Feb, Mood disorder F39 and PTSD (post-traumatic stress disorder) F43.10 [address] [place] [place] [address] 25333- 2933 Feb, PTSD (post-traumatic stress disorder) F43.10 ; Mood disorder F39 ; Borderline personality disorder F60.3 and Cannabis use disorder, mild, abuse F12.10 [address] [id number] [place] [address] 60821- 6317 Feb, Schizo affective schizophrenia F25.0 ; Adjustment disorder with mixed anxiety and depressed mood F43.23 ; Night terror F51.4 ; Anxiety F41.9 and Borderline personality disorder F60.3 [place] [id number] [place] [address] 33227- 4371 Feb, [facility] [id number] [place] [address] 88166- 7757 Feb, Mood disorder F39 [facility] [id number] [place] [address] 33215- 1258 Feb, Annual physical exam Z00.00 ; BMI 40.0-44.9, adult Z68.41 and Nipple discharge N64.52 [place] [address] [address]- [address] Jan, Schizo affective schizophrenia F25.0 ; Adjustment disorder with mixed anxiety and depressed mood F43.23 ; Night terror F51.4 ; Anxiety F41.9 and Borderline personality disorder F60.3 [place] [id number] [place] [address] 73042- 1925 Jan, Mood disorder F39 ; PTSD (post-traumatic stress disorder) F43.10 ; Borderline personality disorder F60.3 and High risk medication use Z79.899 [place] [id number] [place] [address] 82699- 1411 Dec, Anxiety F41.9 and Borderline personality disorder F60.3 [place] [id number] [place] [address] 36400- 3792 Dec, [place] [id number] [place] [address] 32052- 2425 Dec, Anxiety F41.9 and Borderline personality disorder F60.3 [place] [id number] [place] [address] 20251- 0905 Dec, [place] [id number] [place] [address] 78621- 8972 Dec, [place] [id number] [place] [address] 39347- 9486 Nov, Acute non-recurrent maxillary sinusitis J01.00 ; Mood disorder F39 and Sciatica, unspecified side M54.30 [facility] [id number] [place] [address] 56580- 5086 Nov, Mood disorder F39 ; PTSD (post-traumatic stress disorder) F43.10 and Borderline personality disorder F60.3 [facility] [id number] [place] [address] 66832- 9340 Nov, Anxiety F41.9 and Borderline personality disorder F60.3 [facility] [address] 087684- 1850 Nov, [facility] [address] 90984- 6068 Nov, Anxiety F41.9 and Sciatica, unspecified side M54.30 [facility] [id number] [place] [address] 83383- 1799 Oct, Anxiety F41.9 [facility] [address] 05220- 1653 Oct, Mood disorder F39 ; PTSD (post-traumatic stress disorder) F43.10 ; Borderline personality disorder F60.3 and High risk medication use Z79.899 [facility] [id number] [place] [address] [id number] 11 Oct, 2017 Dental caries K02.9 and Dental examination Z01.20 [facility] [id number] [place] [address] 01361- 2686 Sep, Dysuria R30.0 and Abdominal pain, right lower quadrant R10.31 [facility] [id number] [place] [address] 89855- 0008 Aug, Mood disorder F39 ; PTSD (post-traumatic stress disorder) F43.10 and Borderline personality disorder F60.3 [facility] [id number] [place] [address] 57519- 2959 Aug, [facility] [address] 39876- 7091 Aug, [facility] [id number], [place] [address]- 0672 Aug, Severe episode of recurrent major depressive disorder, with psychotic features F33.3 ; PTSD (post-traumatic stress disorder) F43.10 ; Adjustment disorder with mixed anxiety and depressed mood F43.23 and Borderline personality disorder F60.3 [facility] [id number] [place] [address] 43817- 5230 Aug, Mood disorder F39 ; PTSD (post-traumatic stress disorder) F43.10 and Borderline personality disorder F60.3 [facility] [id number] [place] [address] 23926- 1386 Aug, [facility] [id number] [place] [address] 15511- 4063 Aug, Bipolar 1 disorder F31.9 and Schizo affective schizophrenia F25.0 [facility] [id number] [place] [address] 24844- 7185 Aug, Mood disorder F39 [facility] [id number] [place] [address] 13693- 2399 Aug, Bipolar 1 disorder F31.9 and Schizo affective schizophrenia F25.0 [facility] [id number] [place] [address] 25895- 5774 Aug, Bipolar 1 disorder F31.9 and Schizo affective schizophrenia F25.0 [facility] [id number] [place] [address] 29851- 0208 Aug, [facility] [id number] [place] [address] 92990- 8906 Aug, PTSD (post-traumatic stress disorder) F43.10 and Borderline personality disorder F60.3 [facility] [id number], [place] [address]- 3146 Aug, [facility] [id number] [place] [address] 11280- 7402 Aug, Mood disorder F39 ; PTSD (post-traumatic stress disorder) F43.10 ; Borderline personality disorder F60.3 and Adjustment disorder with mixed anxiety and depressed mood F43.23 [facility] [address] [address]- 1001 Jul, [facility] [id number] [place] [address] 42707- 0923 Jul, Mood disorder F39 ; PTSD (post-traumatic stress disorder) F43.10 and Borderline personality disorder F60.3 [facility] [id number] [place] [address] 21502- 4891 Jul, [place] [id number] [place] [address] 74912- 7738 Jun, Anxiety F41.9 ; ADHD (attention deficit hyperactivity disorder) F90.9 ; Night terror F51.4 ; Bulimia F50.2 ; Severe episode of recurrent major depressive disorder, with psychotic features F33.3 and PTSD ( post-traumatic stress disorder) F43.10 [place] [address] [place] [address] 98945- 4617 Jun, Borderline personality disorder F60.3 ; Mood disorder F39 and PTSD (post-traumatic stress disorder) F43.10 [place] [address] [address]- 1088 Jun, Anxiety F41.9 [facility] [address] [place] [address] 90797- 4692 Jun, Anxiety F41.9 ; ADHD (attention deficit hyperactivity disorder) F90.9 ; Night terror F51.4 ; Bulimia F50.2 ; Severe episode of recurrent major depressive disorder, with psychotic features F33.3 and PTSD ( post-traumatic stress disorder) F43.10 [facility] [address], [place] [address]- 9212 Jun, ADHD (attention deficit hyperactivity disorder) F90.9 ; Night terror F51.4 ; Bulimia F50.2 ; Anxiety F41.9 ; Severe episode of recurrent major depressive disorder, with psychotic features F33.3 and PTSD ( post-traumatic stress disorder) F43.10 [facility] [id number] [place] [address] 39419- 9724 May, Anxiety F41.9 [facility] [id number] [place] [address] 56108- 4160 May, PTSD (post-traumatic stress disorder) F43.10 and Borderline personality disorder F60.3 [facility] [id number] [place] [address] 38987- 0771 Apr, [facility] [address] [id number] March, Dental examination Z01.20 and Dental caries K02.9 [place] [id number] [place] [address] 60888- 4279 March, Dental examination Z01.20 [facility] [id number] [place] [address] 41877- 9368 March, Tooth abscess K04.7 and Tooth pain K08.89 [address] [id number] [place] [address] 77400- 2113 March, Borderline personality disorder F60.3 [facility] [id number] [place] [address] 72992- 4214 March, ADHD (attention deficit hyperactivity disorder) F90.9 ; Night terror F51.4 ; Bulimia F50.2 and Anxiety F41.9 [facility] [id number] [place] [address] 59330- 3342 Feb, Borderline personality disorder F60.3 ; ADHD (attention deficit hyperactivity disorder) F90.9 ; Anxiety F41.9 ; Bulimia F50.2 ; Obsessive-compulsive disorder, unspecified type F42.9 and Night terror F51.4 [facility] [id number] [place] [address] 67582- 8872 Feb, [facility] [place] [facility] [address] [id number] [place] [address]- 8871 Feb, [facility] [place] [facility] [address] [id number] [place] [address]- 2188 Jul, [facility] [place] [facility] [address] [id number] [place] [address]- 8340 Jul, [facility] [place] [facility] [address] [id number] [place] [address]- 7778 Jul, [facility] [place] [facility] [address] [id number] [place] [address]- 6604 Jul, [facility] [place] [facility] [address] [id number] [place] [address]- 1466 Jun, [facility] [place] [facility] [address] [id number] [place] [address]- 9591 Jun, [facility] [place] [facility] [address] [id number] [place] [address]- 1441 Jun, [facility] [place] [facility] [address] [id number] [place] [address]- 7195 Jun, [facility] [place] [facility] [address] [id number] [place] [address]- 9173 Apr, [facility] [place] [facility] [address] [id number] [place] [address]- 0329 Apr, [facility] [place] [facility] [address] [id number] [address]- 8667 March, [facility] [place] [facility] [address] [id number] [place] [address]- 2404 March, [facility] [place] [facility] [address] [id number] [place] [address]- 7334 Jan, [facility] [place] [facility] [address] [id number] [place] [address]- 5332 Jan, [facility] [place] [facility] [address] [id number] [place] [address]- 1950 Jan, [facility] [place] [facility] [address] [id number] [place] [address]- 0358 Jan, [facility] [place] [facility] [address] [id number] [place] 2763 Jan, [facility] [place] [facility] [address] [id number] [place] [address]- 9209 Dec, [facility] [place] [facility] [address] [id number] [place] [address]- 0662 Dec, [facility] [place] [facility] [address] [id number] [place] [address]- 5374 Oct, [facility] [place] [facility] [address] [id number] [place] [address]- 9245 Oct, [facility] [place] [facility] [address] [id number] [place] 3567 Oct, [facility] [place] [facility] [address] [id number] [place] [address]- 5862 Oct, [facility] [place] [facility] [address] [id number] [place] [address]- 4466 Sep, [facility] [place] [facility] [address] [facility] [id number] [place] [address]- 8081 Sep, [facility] [place] [facility] [address] [id number] [place] [address]- 1256 Sep, [facility] [place] [facility] [address] [id number] [place] [address]- 5186 Aug, [facility] [place] [facility] [address] [id number] [place] [address]- 7718 Aug, [facility] [place] [facility] [address] [id number] [place] 6505 Aug, [facility] [place] [facility] [address] [id number] [place] [address]- 0818 Aug, [facility] [place] [facility] [address] [id number] [place] [address]- 3024 Aug, [facility] [place] [facility] [address] [id number] [place] [address]- 1005 Aug, [facility] [place] [facility] [address] [id number] [place] [address]- 5184 Aug, [facility] [place] [facility] [address] [id number] [place] [address]- 9482 Jul, [facility] [address] [id number] [place] [address]- 6179 Jun, [facility] [place] [facility] [address] [id number] [place] [address]- 4744 Jun, [facility] [place] [facility] [address] [id number] [place] [address]- 5534 Jun, [facility] [place] [facility] [address] [id number] [place] [address]- 6037 Jun, [facility] [place] [facility] [address] [id number] [place] [address]- 0211 Jun, [facility] [place] [facility] [address] [id number] [place] [address]- 9281 Jun, [facility] [place] [facility] [address] [id number] [place] [address]- 4437 May, [facility] [place] [facility] [address] [id number] [place] [address]- 4404 May, [facility] [place] [facility] [address] [id number] [place] [address]- 9169 May, [facility] [place] [facility] [address] [id number] [place] [address]- 2841 May, [facility] [place] [facility] [address] [id number] [place] [address]- 9939 March, [facility] [place] [facility] [address] [id number] [place] [address]- 3879 March, [facility] [address] [id number] [place] [address]- 7500 March, [facility] [address] [id number] [place] [address]- 7461 Feb, [facility] [address] [id number] [place] [address]- 3011 Feb, [facility] [address] [id number] [place] [address]- 3524 Feb, [facility] [address] [id number] [place] [address]- 4838 Feb, [facility] [address] [id number] [place] [address]- 7401 Jan, [facility] [address] [id number] [place] [address]- 9629 Jan, [facility] [address] [id number] [place] [address]- 9580 Jan, [facility] [address] [id number] [place] [address]- 4048 Dec, [facility] [address] [id number] [place] [address]- 3512 Dec, [facility] [address] [id number] [place] [address]- 0196 Dec, [facility] [address] [id number] [place] [address]- 0964 Dec, [facility] [address] [id number] [place] [address]- 7064 Dec, [facility] [place] [facility] [address] [id number] [place] [address]- 3571 Nov, [facility] [address] [id number] [place] [address]- 3707 Nov, [facility] [address] [id number] [place] [address]- 3166 Nov, [facility] [place] [facility] [address] [id number] [place] [address]- 4336 Nov, [facility] [place] [facility] [address] [id number] [place] [address] 2546 Oct, [facility] [place] [facility] [address] [id number] [place] [address]- 5526 Oct, [facility] [place] [facility] [address] [id number] [place] [address] 2546 Oct, [facility] [place] [facility] [address] [id number] [place] [address]- 9726 Oct, [facility] [place] [facility] [address] [id number] [place] [address]- 5136 Oct, [facility] [place] [facility] [address] [id number] [place] [address]- 3419 Oct, [facility] [place] [facility] [address] [id number] [place] [address]- 5201 Oct, [facility] [place] [facility] [address] [id number] [place] [address]- 2546 Oct, [facility] [place] [facility] [address] [id number] [place] [address] Oct, [facility] [place] [facility] [address] [id number] [place] [address] Oct, [facility] [place] [facility] [address] [id number] [place] [address] Oct, [facility] [place] [facility] [address] [id number] [place] [address] 07 Oct, 2012 [facility] [place] [facility] [address] [id number] [place] [address] 07 Oct, 2012 [facility] [place] [facility] [address] [id number] [place] [address] Sep, [facility] [place] [facility] [address] [id number] [place] [address] Sep, [facility] [place] [facility] [address] [id number][place] [address] Sep, [facility] [place] [facility] [address] [facility] [id number] [place] [address] Sep, [facility] [place] [facility] [address] [id number][place] [address] Sep, [facility] [place] [facility] [address] [id number] [place] [address] Sep, [facility] [place] [facility] [address] [id number][place] [address] Sep, [facility] [place] [facility] [address] [facility] [id number], [place] [address] Sep, [facility] [place] [facility] [address] [id number], [place] [address] Sep, [facility] [place] [facility] [address] [id number], [place] [address] Sep, [facility] [place] [facility] [address] [facility] [id number], [place] [address] Sep, [facility] [place] [facility] [address] [id number], [place] [address] Sep, [facility] [place] [facility] [address] [id number], [place] [address] Aug, [facility] [place] [facility] [address] [id number][place] [address] Aug, [facility] [place] [facility] [address] [facility] [id number], [place] [address] Aug, [facility] [place] [facility] [address] [facility] [id number], [place] [address] Aug, [facility] [place] [facility] [address] [id number] [place] [address] 14 Aug, 2012 [facility] [place] [facility] [address] [id number] [place] [address] 14 Aug, 2012 [facility] [place] [facility] [address] [id number] [place] [address] Aug, [facility] [place] [facility] [address] [id number] [place] [address] Aug, [facility] [place] [facility] [address] [id number] [place] [address] Aug, [facility] [place] [facility] [address] [id number] [place] [address] Aug, [facility] [place] [facility] [address] [id number] [place] [address] Aug, [facility] [place] [facility] [address] [id number] [place] [address] Aug, [facility] [place] [facility] [address] [id number] [place] [address] 28 Jul, 2012 [facility] [place] [facility] [address] [id number] [place] [address] 27 Jul, 2012 [facility] [place] [facility] [address] [id number] [place] [address] 21 Jul, 2012 [facility] [place] [facility] [address] [id number] [place] [address] 10 Jul, 2012 [facility] [place] [facility] [address] [id number] [place] [address] 05 Sep, 2011 [facility] [place] [facility] [address] [id number] [place] [address] 97[address] 04 Jul, 2012 [facility] [place] [facility] [address] [id number] [place] [address] 27 Jun, 2012 [facility] [place] [facility] [address] [id number] [place] [address] Jun, [facility] [place] [facility] [address] [id number] [place] [address] Jun, [facility] [place] [facility] [address] [id number] [place] [address] May, [facility] [place] [facility] [address] [id number] [place] [address] May, [facility] [place] [facility] [address] [id number] [place] [address] May, [facility] [address] [id number] [place] [address] May, [facility] [place] [facility] [address] [id number] [place] [address]163 May, [facility] [address] [id number] [place] [address] May, [facility] [address] [id number] [place] [address] Apr, [facility] [place] [facility] [address] [id number] [place] [address] Feb, [facility] [place] [facility] [address] [id number] [place] [address] Feb, [facility] [place] [facility] [address] [id number] [place] [address] 6[address] Feb, [facility] [place] [facility] [address] [id number] [place] [address] 97[address] 10 Feb, 2012 [facility] [place] [facility] [address] [id number] [place] [address]- [address]1 16 Jan, 2012 [facility] [place] [facility] [address] [id number] [place] [address] Jan, [facility] [place] [facility] [address] [id number] [place] [address] 29 Dec, 2011 [facility] [place] [facility] [address] [id number] [place] [address] 9189 28 Dec, 2011 [facility] [address] [id number] [place] [address] Dec, [facility] [address] [id number] [place] [address] 1536 14 Dec, 2011 [facility] [address] [id number] [place] [address] 2206 14 Dec, 2011 [facility] [address] [id number] [place] [address] 8056 13 Dec, 2011 [facility] [address] [id number] [place] [address] 7816 09 Dec, 2011 [facility] [address] [id number] [place] [address] 7[address] 07 Dec, 2011 [facility] [address] [id number] [place] [address] 9642 02 Dec, 2011 [facility] [address] [id number] [place] [address] 9457 30 Nov, 2011 [facility] [address] [id number] [place] [address] 1350 27 Nov, 2011 [facility] [address] [id number] [place] [address] 1172 24 Nov, 2011 [facility] [address] [id number] [place] [address] 5196 19 Nov, 2011 [facility] [address] [id number] [place] [address] 4058 17 Nov, 2011 [facility] [place] [facility] [address] [id number] [place] [address] 9469 16 Nov, 2011 [facility] [place] [facility] [address] [id number] [place] [address] 6886 10 Nov, 2011 [facility] [place] [facility] [address] [id number] [place] [address] 1511 Nov, [facility] [place] [facility] [address] [id number] [place] [address] 3984 Nov, [facility] [address] [id number] [place] [address] 7490 Oct, [facility] [place] [facility] [address] [id number] [place] [address] 9696 Oct, [facility] [place] [facility] [address] [id number] [place] [address]- 6741 Oct, [facility] [address] [id number] [place] [address]- 7042 Oct, [facility] [place] [facility] [address] [id number] [place] [address]15 Oct, [facility] [address] [id number] [place] [address] 7732 Oct, [facility] [address] [id number] [place] [address] 2033 Sep, [facility] [place] [facility] [address] [id number] [place] [address] 5038 Aug, [facility] [place] [facility] [address] [id number] [place] [address] 5692 Jul, [facility] [place] [facility] [address] [id number] [place] [address] 7085 Nov, [facility] [place] [facility] [address] [id number] [address] Nov, [facility] [place] [facility] [address] [id number] [place] [address] 4502 Oct, [facility] [place] [facility] [address] [id number] [place] [address] 0431 Sep, [facility] [place] [facility] [address] [id number] [address] 1638 Sep, [facility] [place] [facility] [address] [id number], [place] [address] 18 Aug, 2010 [facility] [address] [address] 14 Aug, 2010 [facility] [id number] [address] [address] 14 Aug, 2010 [facility] [address] [address] Feb, [facility] [id number] [place] [address] Dec, [facility] [id number] [place] [address]- 1935 Oct, [facility] [id number] [place] [address]- 9047 Oct, [facility] [id number] [place] [address]- 0016 Oct, [facility] [id number] [address]807 Sep, [facility] [id number] [place] [address]- 3348 Sep, [facility] [address] [address] 4[address] Sep, [facility] [address] [address] Aug, [facility] [address] [address] Aug, IMMUNIZATIONS No Known Immunizations SOCIAL HISTORY Never Assessed REASON FOR VISIT misplaced meds PLAN OF CARE VITAL SIGNS MEDICATIONS Medication Instructions Dosage Frequency Start Date End Date Duration Status Seroquel 100 MG Orally Three times a day 1 tablet 8h Oct, 30 days Active BusPIRone HCl 10 mg Orally Three times a day 1 tablet 8h Feb, 30 days Active RESULTS No Results PROCEDURES [...] EGD Hospitalization History mental health issues x2 [facility] [place] 2016 & 02/2017 Hospitalization History Surgery(s)/Childbirth(s)
--- OUTSIDE RECORDS SUMMARY | 2018-08-03 08:34 | XMS REPORT ---
Author Author TESS CRAIG Organization [facility] Address [address] [place] [address] Care Team Providers Care Information Technology Account Manager Name Role Phone RAFA, TESS Unavailable PROBLEMS Type Condition ICD9-CM Code CIS81-[place] Code Onset Dates Condition Status SNOMED Code Problem Adjustment disorder with mixed anxiety and depressed mood F43.23 Active 31419517 Problem Bipolar 1 disorder F31.9 Active 674113726 Problem Schizo affective schizophrenia F25.0 Active 956125836 Problem Dysmenorrhea N94.6 Active 280104032 Problem Morbid obesity due to excess calories E66.01 Active 967821459 Problem Cannabis use disorder, mild, abuse F12.10 Active 85565436 Problem Sciatica, unspecified side M54.30 Active Problem Other chronic pain G89.29 Active 46718035 Problem Lumbago with sciatica, right side M54.41 Active 086799690 Problem Anxiety F41.9 Active 11436415 Problem PTSD (post-traumatic stress disorder) F43.10 Active 68536602 Problem Borderline personality disorder F60.3 Active 43300022 Problem Severe episode of recurrent major depressive disorder, with psychotic features F33.3 Active 73417471 Problem Night terror F51.4 Active 92169152 Problem Mood disorder F39 Active 66973094 ALLERGIES Substance Reaction Event Type Date Status Pseudoephedrine HCl ER unknown Drug Allergy Feb, Active Phenytoin rash Drug Allergy Feb, Active Penicillamine anaphylaxis Drug Allergy Feb, Active Cephalexin anaphylaxis Drug Allergy Feb, Active Albuterol unknown Drug Allergy Feb, Active ENCOUNTERS Encounter Location Date Diagnosis [facility] [address] [facility] [id number] [address] Jun, [facility] [address] [facility] [id number], [place] [address] May, Skin tags, multiple acquired L91.8 ; Dysmenorrhea N94.6 and Acute non-recurrent maxillary sinusitis J01.00 [facility] [id number] [place] [address] 03140- 9144 27 May, 2018 PTSD (post-traumatic stress disorder) F43.10 [place] [id number] [place] [address] 92940- 4287 May, Other jail (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 [place] [id number] [place] [address] 47245- 3315 May, PTSD (post-traumatic stress disorder) F43.10 ; Mood disorder F39 ; Borderline personality disorder F60.3 and Cannabis use disorder, mild, abuse F12.10 [facility] [id number] [place] [address] 02352- 3814 May, BMI 40.0-44.9, adult Z68.41 [place] [id number] [place] [address] 60127- 0095 18 Apr, 2018 BMI 40.0-44.9, adult Z68.41 [facility] [id number] [place] [address] 38365- 8874 14 Apr, 2018 Acute non-recurrent maxillary sinusitis J01.00 [facility] [id number] [place] [address] 60438- 5998 11 Apr, 2018 PTSD (post-traumatic stress disorder) F43.10 ; Mood disorder F39 ; Borderline personality disorder F60.3 ; Cannabis use disorder, mild, abuse F12.10 and Other jail (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 [place] [id number] [place] [address] 09087- 7830 08 Apr, 2018 [place] [id number] [place] [address] 76658- 1675 07 Apr, 2018 Annual physical exam Z00.00 and High risk medication use Z79.899 [place] [id number] [place] [address] 95392- 9332 Apr, PTSD (post-traumatic stress disorder) F43.10 [place] [address] [address] Apr, [facility] [id number] [place] [address] 74043- 7171 March, BMI 40.0-44.9, adult Z68.41 ; Morbid obesity due to excess calories E66.01 ; Lumbago with sciatica, right side M54.41 and Other chronic pain G89.29 [place] [address] [address]326 March, PTSD (post-traumatic stress disorder) F43.10 [facility] [place] [id number] [place] [address] 84375- 2859 March, PTSD (post-traumatic stress disorder) F43.10 ; Mood disorder F39 ; Borderline personality disorder F60.3 and Cannabis use disorder, mild, abuse F12.10 [place] [address] [address] 79[address] Feb, [facility] [id number] [place] [address] 33231- 9957 Feb, [facility] [id number] [address] Feb, Breast cancer screening Z12.31 [place] [address], [place] [address] 0674 Feb, Mood disorder F39 and PTSD (post-traumatic stress disorder) F43.10 [place] [address], [place] [address] 0624 Feb, PTSD (post-traumatic stress disorder) F43.10 ; Mood disorder F39 ; Borderline personality disorder F60.3 and Cannabis use disorder, mild, abuse F12.10 [place] [address], [place] [address] 1092 Feb, Schizo affective schizophrenia F25.0 ; Adjustment disorder with mixed anxiety and depressed mood F43.23 ; Night terror F51.4 ; Anxiety F41.9 and Borderline personality disorder F60.3 [place] [id number] [place] [address] 79902- 1977 Feb, [place] [id number] [place] [address] 62287- 9589 Feb, Mood disorder F39 [facility] [id number] [place] [address] 24632- 8175 Feb, Annual physical exam Z00.00 ; BMI 40.0-44.9, adult Z68.41 and Nipple discharge N64.52 [facility] [id number] [place] [address] 88050- 8557 Jan, Schizo affective schizophrenia F25.0 ; Adjustment disorder with mixed anxiety and depressed mood F43.23 ; Night terror F51.4 ; Anxiety F41.9 and Borderline personality disorder F60.3 [place] [id number] [place] [address] 52526- 0881 Jan, Mood disorder F39 ; PTSD (post-traumatic stress disorder) F43.10 ; Borderline personality disorder F60.3 and High risk medication use Z79.899 [place] [id number] [place] [address] 17387- 4299 Dec, Anxiety F41.9 and Borderline personality disorder F60.3 [place] [id number] [place] [address] 54213- 1825 Dec, [place] [id number] [place] [address] 04856- 0955 Dec, Anxiety F41.9 and Borderline personality disorder F60.3 [facility] [id number] [place] [address] 26085- 5876 Dec, [place] [id number] [place] [address] 73245- 5108 Dec, [place] [id number] [place] [address] 92278- 3244 Nov, Acute non-recurrent maxillary sinusitis J01.00 ; Mood disorder F39 and Sciatica, unspecified side M54.30 [facility] [id number] [place] [address] 33542- 6519 Nov, Mood disorder F39 ; PTSD (post-traumatic stress disorder) F43.10 and Borderline personality disorder F60.3 [place] [id number] [place] [address] 52520- 5305 Nov, Anxiety F41.9 and Borderline personality disorder F60.3 [place] [address] 890916- 7201 Nov, [place] [address] 91322- 7666 Nov, Anxiety F41.9 and Sciatica, unspecified side M54.30 [place] [id number] [place] [address] 58656- 7450 Oct, Anxiety F41.9 [place] [address] 29441- 4917 Oct, Mood disorder F39 ; PTSD (post-traumatic stress disorder) F43.10 ; Borderline personality disorder F60.3 and High risk medication use Z79.899 [facility] [id number] [place] [address] [id number] 11 Oct, 2017 Dental caries K02.9 and Dental examination Z01.20 [place] [id number] [place] [address] 32219- 8674 13 Sep, 2017 Dysuria R30.0 and Abdominal pain, right lower quadrant R10.31 [facility] [id number] [place] [address] 70222- 8405 24 Aug, 2017 Mood disorder F39 ; PTSD (post-traumatic stress disorder) F43.10 and Borderline personality disorder F60.3 [place] [address], [place] [address] 8472 Aug, [facility] [id number] [place] [address] 41352- 1513 Aug, [facility] [address] [place] [address] 53520- 7837 Aug, Severe episode of recurrent major depressive disorder, with psychotic features F33.3 ; PTSD (post-traumatic stress disorder) F43.10 ; Adjustment disorder with mixed anxiety and depressed mood F43.23 and Borderline personality disorder F60.3 [facility] [address] [place] [address] 83864- 4362 Aug, Mood disorder F39 ; PTSD (post-traumatic stress disorder) F43.10 and Borderline personality disorder F60.3 [facility] [id number] [place] [address] 63525- 7332 Aug, [facility] [id number] [place] [address] 24010- 5029 Aug, Bipolar 1 disorder F31.9 and Schizo affective schizophrenia F25.0 [facility] [address] [place] [address] 72667- 3055 Aug, Mood disorder F39 [facility] [id number] [place] [address] 61286- 7187 Aug, Bipolar 1 disorder F31.9 and Schizo affective schizophrenia F25.0 [facility] [id number] [place] [address] 75405- 6062 Aug, Bipolar 1 disorder F31.9 and Schizo affective schizophrenia F25.0 [facility] [id number] [place] [address] 26450- 1139 Aug, [facility] [id number] [place] [address] 85373- 3382 Aug, PTSD (post-traumatic stress disorder) F43.10 and Borderline personality disorder F60.3 [facility] [address], [place] [address]- 9074 Aug, [place] [id number] [place] [address] 48007- 4914 Aug, Mood disorder F39 ; PTSD (post-traumatic stress disorder) F43.10 ; Borderline personality disorder F60.3 and Adjustment disorder with mixed anxiety and depressed mood F43.23 [place] [id number] [place] [address] 39281- 6033 Jul, [place] [id number] [place] [address] 22685- 6490 Jul, Mood disorder F39 ; PTSD (post-traumatic stress disorder) F43.10 and Borderline personality disorder F60.3 [place] [id number] [place] [address] 76565- 0012 Jul, [place] [id number] [place] [address] 06416- 1568 Jun, Anxiety F41.9 ; ADHD (attention deficit hyperactivity disorder) F90.9 ; Night terror F51.4 ; Bulimia F50.2 ; Severe episode of recurrent major depressive disorder, with psychotic features F33.3 and PTSD ( post-traumatic stress disorder) F43.10 [place] [address], [place] [address]- 8433 Jun, Borderline personality disorder F60.3 ; Mood disorder F39 and PTSD (post-traumatic stress disorder) F43.10 [place] [address], [place] [address]- 7235 Jun, Anxiety F41.9 [place] [id number] [place] [address] 96618- 6224 Jun, Anxiety F41.9 ; ADHD (attention deficit hyperactivity disorder) F90.9 ; Night terror F51.4 ; Bulimia F50.2 ; Severe episode of recurrent major depressive disorder, with psychotic features F33.3 and PTSD ( post-traumatic stress disorder) F43.10 [facility] [address] [place] [address] 33183- 7244 Jun, ADHD (attention deficit hyperactivity disorder) F90.9 ; Night terror F51.4 ; Bulimia F50.2 ; Anxiety F41.9 ; Severe episode of recurrent major depressive disorder, with psychotic features F33.3 and PTSD ( post-traumatic stress disorder) F43.10 [place] [id number] [place] [address] 44376- 6558 May, Anxiety F41.9 [place] [id number] [place] [address] 47010- 2730 May, PTSD (post-traumatic stress disorder) F43.10 and Borderline personality disorder F60.3 [place] [id number] [place] [address] 68798- 4840 Apr, [facility] [address] [id number] March, Dental examination Z01.20 and Dental caries K02.9 [place] [id number] [place] [address] 57872- 6324 March, Dental examination Z01.20 [facility] [id number] [place] [address] 88177- 1651 March, Tooth abscess K04.7 and Tooth pain K08.89 [place] [id number] [place] [address] 61087- 2318 March, Borderline personality disorder F60.3 [facility] [id number] [place] [address] 92053- 9596 March, ADHD (attention deficit hyperactivity disorder) F90.9 ; Night terror F51.4 ; Bulimia F50.2 and Anxiety F41.9 [facility] [address] [place] [address] 92012- 7221 Feb, Borderline personality disorder F60.3 ; ADHD (attention deficit hyperactivity disorder) F90.9 ; Anxiety F41.9 ; Bulimia F50.2 ; Obsessive-compulsive disorder, unspecified type F42.9 and Night terror F51.4 [facility] [id number] [place] [address]- 8367 14 Feb, 2015 [facility] [address] [facility] [id number], [place] [address]- 7166 Feb, [facility] [address] [facility] [id number] [place] [address], [place] [address]- 2228 Jul, [facility] [address] [facility] [id number] [place] [address], [place] [address]- 7456 Jul, [facility] [id number] [place] [address], [place] [address]- 3635 Jul, [facility] [id number] [place] [address], [place] [address]- 8879 Jul, [facility] [id number] [place] [address] 13172- 1951 Jun, [facility] [address], [place] [address]- 3610 Jun, [facility] [id number] [place] [address] 92088- 6337 Jun, [facility] [id number] [address]- 0913 Jun, [facility] [address], [place] [address]- 8470 Apr, [facility] [address] [facility] [id number], [place] [address]- 8253 Apr, [facility] [id number] [address]- 7172 March, [facility] [address] [facility] [id number], [place] [address]- 1987 March, [facility] [address] [place] [address] 38373- 6782 Jan, [facility] [place] [facility] [address] [id number] [place] [address]- 4137 Jan, [facility] [place] [facility] [address] [id number] [place] [address]- 6794 Jan, [facility] [place] [facility] [address] [id number] [place] [address]- 6499 Jan, [facility] [place] [facility] [address] [id number] [place] [address]- 2132 Jan, [facility] [place] [facility] [address] [id number] [place] [address]- 3767 Dec, [facility] [place] [facility] [address] [id number] [place] [address]- 2872 Dec, [facility] [place] [facility] [address] [id number] [place] [address]- 5645 Oct, [facility] [place] [facility] [address] [id number] [place] [address]- 7157 Oct, [facility] [place] [facility] [address] [id number] [place] 6920 Oct, [facility] [place] [facility] [address] [id number] [place] [address]- 9686 Oct, [facility] [place] [facility] [address] [id number], [place] [address]- 4739 Sep, [facility] [place] [facility] [address] [id number], [place] [address]- 4860 Sep, [facility] [place] [facility] [address] [id number] [place] [address]- 3574 Sep, [facility] [place] [facility] [address] [id number] [place] [address]- 7636 Aug, [facility] [place] [facility] [address] [id number] [place] [address]- 6252 Aug, [facility] [place] [facility] [address] [id number] [place] [address] 2540 Aug, [facility] [place] [facility] [address] [id number] [place] [address]- 2917 Aug, [facility] [place] [facility] [address] [id number] [place] [address]- 2546 Aug, [facility] [place] [facility] [address] [id number] [place] [address]- 7644 Aug, [facility] [place] [facility] [address] [id number] [place] [address]- 6135 Aug, [facility] [place] [facility] [address] [id number] [place] [address]- 8005 Jul, [facility] [place] [facility] [address] [id number] [place] [address]- 4883 Jun, [facility] [place] [facility] [address] [id number] [place] [address]- 4528 Jun, [facility] [place] [facility] [address] [id number] [place] [address]- 7685 Jun, [facility] [place] [facility] [address] [id number] [place] [address]- 0894 Jun, [facility] [place] [facility] [address] [id number] [place] [address]- 9351 Jun, [facility] [place] [facility] [address] [id number] [place] [address]- 6152 Jun, [facility] [place] [facility] [address] [id number] [place] [address]- 8405 May, [facility] [place] [facility] [address] [id number] [place] [address]- 0635 May, [facility] [place] [facility] [address] [id number] [place] [address]- 2546 May, [facility] [place] [facility] [address] [id number] [place] [address]- 0913 May, [facility] [address] [id number] [place] [address]- 6863 March, [facility] [place] [facility] [address] [id number] [place] [address]- 8703 March, [facility] [address] [id number] [place] [address]- 5166 March, [facility] [place] [facility] [address] [id number] [place] [address]- 7432 Feb, [facility] [address] [id number] [place] [address]- 2871 Feb, [facility] [place] [facility] [address] [id number] [place] [address]- 4636 Feb, [facility] [address] [id number] [place] [address]- 6243 Feb, [facility] [address] [id number] [place] [address]- 4382 Jan, [facility] [place] [facility] [address] [id number] [place] [address]- 2520 Jan, [facility] [address] [id number] [place] [address]- 2739 Jan, [facility] [place] [facility] [address] [id number] [place] [address]- 1063 Dec, [facility] [place] [facility] [address] [id number] [place] [address]- 1844 Dec, [facility] [place] [facility] [address] [id number] [place] [address]- 5413 Dec, [facility] [place] [facility] [address] [id number] [place] [address]- 9720 Dec, [facility] [place] [facility] [address] [id number] [place] 8701 Dec, [facility] [place] [facility] [address] [id number] [place] [address]- 4406 31 Nov, 2012 [facility] [address] [id number] [place] [address]- 0236 23 Nov, 2012 [facility] [address] [id number] [place] [address] 2546 19 Nov, 2012 [facility] [address] [id number] [place] [address]- 6986 14 Nov, 2012 [facility] [address] [id number] [place] [address] 2546 28 Oct, 2012 [facility] [address] [id number] [place] [address]- 9586 Oct, [facility] [address] [id number] [place] [address]- 4086 Oct, [facility] [address] [id number] [place] [address]- 8986 Oct, [facility] [address] [id number] [place] [address]- 2543 Oct, [facility] [address] [id number] [place] [address] 2546 Oct, [facility] [address] [id number] [place] [address] 2546 Oct, [facility] [address] [id number] [place] [address] 2546 Oct, [facility] [address] [id number] [place] [address] 2546 Oct, [facility] [place] [facility] [address] [id number] [place] [address] 2546 Oct, [facility] [place] [facility] [address] [id number] [place] [address]- 2546 Oct, [facility] [address] [id number] [place] [address] 2546 Oct, [facility] [place] [facility] [address] [id number] [place] [address]- 5950 Oct, [facility] [place] [facility] [address] [id number] [place] [address]- 7880 Sep, [facility] [place] [facility] [address] [id number] [place] [address]- 4563 Sep, [facility] [place] [facility] [id number] [place] [address], [place] [address]- 1533 Sep, [facility] [place] [facility] [address] [id number] [place] [address]- 3372 Sep, [facility] [place] [facility] [address] [id number] [place] [address]- 1724 Sep, [facility] [place] [facility] [address] [facility] [id number] [place] [address]- 0790 Sep, [facility] [place] [facility] [address] [id number] [place] [address]- 0186 Sep, [facility] [place] [facility] [address] [id number] [place] [address]- 6858 Sep, [facility] [place] [facility] [address] [id number] [place] [address] Sep, [facility] [place] [facility] [address] [id number] [place] [address] Sep, [facility] [place] [facility] [address] [id number], [place] [address] Sep, [facility] [place] [facility] [address] [id number] [place] [address] Sep, [facility] [place] [facility] [address] [id number] [place] [address] Aug, [facility] [place] [facility] [address] [id number] [place] [address] Aug, [facility] [place] [facility] [address] [id number], [place] [address] Aug, [facility] [place] [facility] [address] [id number] [place] [address] Aug, [facility] [place] [facility] [address] [id number] [place] [address] 14 Aug, 2012 [facility] [place] [facility] [address] [id number] [place] [address] Aug, [facility] [place] [facility] [address] [id number] [place] [address] Aug, [facility] [place] [facility] [address] [id number] [place] [address] Aug, [facility] [place] [facility] [address] [id number] [place] [address] Aug, [facility] [place] [facility] [address] [id number] [place] [address] Aug, [facility] [place] [facility] [address] [id number] [place] [address] Aug, [facility] [place] [facility] [address] [id number] [place] [address] 02 Aug, 2012 [facility] [place] [facility] [address] [id number] [place] [address] 28 Jul, 2012 [facility] [place] [facility] [address] [id number], [place] [address] 27 Sep, 2011 [facility] [place] [facility] [address] [id number], [place] [address] 2011 [facility] [place] [facility] [address] [id number] [place] [address] 10 Sep, 2011 [facility] [place] [facility] [address] [id number] [place] [address] 05 Sep, 2011 [facility] [place] [facility] [address] [id number] [place] [address] 04 Sep, 2011 [facility] [place] [facility] [address] [id number] [place] [address] Jun, [facility] [address] [id number] [place] [address] Jun, [facility] [place] [facility] [address] [id number] [place] [address] Jun, [facility] [address] [id number] [place] [address] May, [facility] [place] [facility] [address] [id number] [place] [address] May, [facility] [address] [id number] [place] [address] May, [facility] [address] [id number] [place] [address] May, [facility] [address] [id number] [place] [address] May, [facility] [address] [id number] [place] [address] May, [facility] [place] [facility] [address] [id number] [place] [address] Apr, [facility] [address] [id number] [place] [address] Feb, [facility] [facility] [address] [id number] [place] [address] 18 Feb, 2012 [facility] [address] [id number] [place] [address] 11 Feb, 2012 [facility] [place] [facility] [address] [id number] [place] [address] 10 Feb, 2012 [facility] [facility] [address] [id number] [place] [address] 16 Jan, 2012 [facility] [place] [facility] [address] [id number] [place] [address] Jan, [facility] [address] [id number] [place] [address] 29 Dec, 2011 [facility] [place] [facility] [address] [id number] [place] [address] 28 Dec, 2011 [facility] [place] [facility] [address] [id number] [place] [address] Dec, [facility] [place] [facility] [address] [id number] [place] [address] 14 Dec, 2011 [facility] [place] [facility] [address] [id number] [place] [address] 14 Dec, 2011 [facility] [place] [facility] [address] [id number] [place] [address] 13 Dec, 2011 [facility] [place] [facility] [address] [id number] [place] [address] 09 Dec, 2011 [facility] [place] [facility] [address] [id number] [place] [address] 07 Dec, 2011 [facility] [place] [facility] [address] [id number] [place] [address] 02 Dec, 2011 [facility] [place] [facility] [address] [id number] [place] [address]67 30 Nov, 2011 [facility] [address] [id number] [place] [address] Nov, [facility] [address] [id number] [place] [address] 24 Nov, 2011 [facility] [address] [id number] [place] [address] 19 Nov, 2011 [facility] [place] [facility] [address] [id number] [place] [address] 17 Nov, 2011 [facility] [address] [id number] [place] [address] 16 Nov, 2011 [facility] [address] [id number] [place] [address] 10 Nov, 2011 [facility] [address] [id number] [place] [address] Nov, [facility] [address] [id number] [place] [address] Nov, [facility] [address] [id number] [place] [address] Oct, [facility] [address] [id number] [place] [address] Oct, [facility] [address] [id number] [place] [address] Oct, [facility] [address] [id number] [place] [address]168 Oct, [facility] [address] [id number] [place] [address] Oct, [facility] [address] [id number] [place] [address] Oct, [facility] [address] [id number] [place] [address] Sep, [facility] [address] [id number] [place] [address] Aug, [facility] [address] [id number] [place] [address] Jul, [facility] [address] [id number] [place] [address] Nov, [facility] [address] [id number] [place] [address] Nov, [facility] [address] [id number] [place] [address] Oct, [facility] [address] [id number] [place] [address] Sep, [facility] [address] [facility] [id number], [place] [address] Sep, [facility] [address] [facility] [id number], [place] [address] Aug, [facility] [address] [facility] [id number], [place] [address] 14 Aug, 2010 [facility] [address] [facility] [id number], [place] [address] Aug, [facility] [address] [facility] [id number], [place] [address] Feb, [facility] [address] [facility] [id number] [place] [address] Dec, [facility] [id number], [place] [address] Oct, [facility] [id number], [place] [address] Oct, [facility] [id number], [place] [address] Oct, [facility] [id number], [place] [address] Sep, [facility] [id number], [place] [address] Sep, [facility] [address] [id number], [place] [address] Sep, [facility] [address] [id number], [place] [address] Aug, [facility] [id number], [place] [address] Aug, IMMUNIZATIONS No Known Immunizations SOCIAL HISTORY Never Assessed REASON FOR VISIT intake PLAN OF CARE Activity Details Follow Up 4 Weeks Reason: f/u VITAL SIGNS Height 63 in 2018-02-22 Weight 242 lbs 2018-02-22 Heart Rate 80 bpm 2018-02-22 Respiratory Rate 20 2018-02-22 BMI 42.86 kg/m2 2018-02-22 Blood pressure systolic 118 mmHg 2018-02-22 Blood pressure diastolic 76 mmHg 2018-02-22 MEDICATIONS Medication Instructions Dosage Frequency Start Date End Date Duration Status Seroquel 100 MG Orally Three times a day 1 tablet 8h 27 Oct, 2017 30 days Active Flagyl 500 mg Orally 2 times a day 1 tablet 12h 11 Feb, 2018 07 days Active Voltaren 1 % Transdermal 2 times a day apply 4gm as needed to lower back as needed 12h Nov, 30 days Active [place] Carbonate 300 MG Orally twice a day 1 capsule 12h Active Gabapentin 800 MG Orally 3 times a day 1 tablet 8h 90 days Active Desvenlafaxine Succinate ER 100 MG Orally in morning 1 tablet Active BusPIRone HCl 10 mg Orally Three times a day 1 tablet 8h Feb, 30 days Active Amitriptyline HCl 25 MG Orally Once a day at bedtime 1 tablet Feb, 30 day(s) Active Quetiapine Fumarate 300 MG Orally Once a day at night 1 tablet Active RESULTS No Results PROCEDURES [...] mental health issues x2 Ward Unit in [place] 2016 & 02/2017 Hospitalization History Surgery(s)/Childbirth(s)
--- OUTSIDE RECORDS SUMMARY | 2018-08-03 08:35 | XMS REPORT ---
Author Author YESENIA DIAZ Organization [facility] Address [address] [address] Care Team Providers Care Backend Developer Name Role Phone YESENIA DIAZ Unavailable PROBLEMS Type Condition ICD9-CM Code YCN75-ID Code Onset Dates Condition Status SNOMED Code Problem Adjustment disorder with mixed anxiety and depressed mood F43.23 Active 93344353 Problem Bipolar 1 disorder F31.9 Active 306414667 Problem Schizo affective schizophrenia F25.0 Active 033260032 Problem Dysmenorrhea N94.6 Active 902663642 Problem Morbid obesity due to excess calories E66.01 Active 137074708 Problem Cannabis use disorder, mild, abuse F12.10 Active 48641063 Problem Sciatica, unspecified side M54.30 Active 75152345 Problem Other chronic pain G89.29 Active 18098081 Problem Lumbago with sciatica, right side M54.41 Active 138608358 Problem Anxiety F41.9 Active 48141466 Problem PTSD (post-traumatic stress disorder) F43.10 Active 19525540 Problem Borderline personality disorder F60.3 Active 31529685 Problem Severe episode of recurrent major depressive disorder, with psychotic features F33.3 Active 87228237 Problem Night terror F51.4 Active 51570727 Problem Mood disorder F39 Active 55386802 ALLERGIES No Information ENCOUNTERS Encounter Location Date Diagnosis [facility] [address] [facility] [id number] [address] Jun, [facility] [address] [id number] [address] May, Skin tags, multiple acquired L91.8 ; Dysmenorrhea N94.6 and Acute non-recurrent maxillary sinusitis J01.00 [facility] [address] [facility] [id number] [address] May, PTSD (post-traumatic stress disorder) F43.10 [place] [address] [place] [address] 95149- 5001 May, 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 [place] [id number] [place] [address] 25301- 2090 May, PTSD (post-traumatic stress disorder) F43.10 ; Mood disorder F39 ; Borderline personality disorder F60.3 and Cannabis use disorder, mild, abuse F12.10 [place] [id number] [place] [address] 19445- 5327 May, BMI 40.0-44.9, adult Z68.41 [place] [id number] [place] [address] 13238- 2529 18 Apr, 2018 BMI 40.0-44.9, adult Z68.41 [place] [id number] [place] [address] 86400- 8352 14 Apr, 2018 Acute non-recurrent maxillary sinusitis J01.00 [place] [id number] [place] [address] 26443- 7435 Apr, PTSD (post-traumatic stress disorder) F43.10 ; Mood disorder F39 ; Borderline personality disorder F60.3 ; Cannabis use disorder, mild, abuse F12.10 and Other [facility] (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 [place] [id number] [place] [address] 56788- 2189 Apr, [place] [id number] [place] [address] 80663- 2777 Apr, Annual physical exam Z00.00 and High risk medication use Z79.899 [place] [id number] [place] [address] 76286- 5607 Apr, PTSD (post-traumatic stress disorder) F43.10 [place] [id number] [place] [address] 21061- 6253 Apr, [place] [address] [address] March, BMI 40.0-44.9, adult Z68.41 ; Morbid obesity due to excess calories E66.01 ; Lumbago with sciatica, right side M54.41 and Other chronic pain G89.29 [place] [address] [address] March, PTSD (post-traumatic stress disorder) F43.10 [place] [address] [place] [address] 80950- 3663 March, PTSD (post-traumatic stress disorder) F43.10 ; Mood disorder F39 ; Borderline personality disorder F60.3 and Cannabis use disorder, mild, abuse F12.10 [place] [address] [address] Feb, [place] [id number] [place] [address] 10457- 6837 Feb, [facility] [address] [place] [id number] [place] [address] Feb, Breast cancer screening Z12.31 [place] [address] [address] Feb, Mood disorder F39 and PTSD (post-traumatic stress disorder) F43.10 [place] [address] [address] 7076 Feb, PTSD (post-traumatic stress disorder) F43.10 ; Mood disorder F39 ; Borderline personality disorder F60.3 and Cannabis use disorder, mild, abuse F12.10 [place] [address] [address] 7[address] Feb, Schizo affective schizophrenia F25.0 ; Adjustment disorder with mixed anxiety and depressed mood F43.23 ; Night terror F51.4 ; Anxiety F41.9 and Borderline personality disorder F60.3 [place] [address] [place] [address] 74507- 6031 Feb, [facility] [id number] [place] [address] 34971- 4402 Feb, Mood disorder F39 [facility] [id number] [place] [address] 44340- 6062 Feb, Annual physical exam Z00.00 ; BMI 40.0-44.9, adult Z68.41 and Nipple discharge N64.52 [place] [id number] [place] [address] 82641- 3233 Jan, Schizo affective schizophrenia F25.0 ; Adjustment disorder with mixed anxiety and depressed mood F43.23 ; Night terror F51.4 ; Anxiety F41.9 and Borderline personality disorder F60.3 [place] [id number] [place] [address] 17688- 4309 Jan, Mood disorder F39 ; PTSD (post-traumatic stress disorder) F43.10 ; Borderline personality disorder F60.3 and High risk medication use Z79.899 [place] [id number] [place] [address] 63078- 5785 Dec, Anxiety F41.9 and Borderline personality disorder F60.3 [place] [id number] [place] [address] 55194- 7104 Dec, [place] [id number] [place] [address] 37362- 6047 Dec, Anxiety F41.9 and Borderline personality disorder F60.3 [place] [id number] [place] [address] 58169- 4906 Dec, [place] [id number] [place] [address] 49172- 3485 Dec, [place] [id number] [place] [address] 94939- 9314 Nov, Acute non-recurrent maxillary sinusitis J01.00 ; Mood disorder F39 and Sciatica, unspecified side M54.30 [facility] [id number] [place] [address] 86486- 2835 Nov, Mood disorder F39 ; PTSD (post-traumatic stress disorder) F43.10 and Borderline personality disorder F60.3 [facility] [id number] [place] [address] 68764- 8297 Nov, Anxiety F41.9 and Borderline personality disorder F60.3 [facility] [id number] [place] [address] 85618- 1821 Nov, [facility] [address] [address]- 8[address] Nov, Anxiety F41.9 and Sciatica, unspecified side M54.30 [facility] [id number] [place] [address] 09346- 7449 Oct, Anxiety F41.9 [facility] [address] [address]68- 7700 Oct, Mood disorder F39 ; PTSD (post-traumatic stress disorder) F43.10 ; Borderline personality disorder F60.3 and High risk medication use Z79.899 [facility] [id number] [place] [address] [id number] 11 Oct, 2017 Dental caries K02.9 and Dental examination Z01.20 [facility] [id number] [place] [address] 81319- 2925 Sep, Dysuria R30.0 and Abdominal pain, right lower quadrant R10.31 [facility] [id number] [place] [address] 87022- 7225 Aug, Mood disorder F39 ; PTSD (post-traumatic stress disorder) F43.10 and Borderline personality disorder F60.3 [facility] [id number] [place] [address] 05332- 0928 Aug, [facility] [address] 19057- 5080 Aug, [facility] [id number] [place] [address] 20178- 6299 Aug, Severe episode of recurrent major depressive disorder, with psychotic features F33.3 ; PTSD (post-traumatic stress disorder) F43.10 ; Adjustment disorder with mixed anxiety and depressed mood F43.23 and Borderline personality disorder F60.3 [facility] [id number] [place] [address] 01404- 5750 Aug, Mood disorder F39 ; PTSD (post-traumatic stress disorder) F43.10 and Borderline personality disorder F60.3 [facility] [id number] [place] [address] 61164- 1828 Aug, [facility] [id number] [place] [address] 62923- 6422 Aug, Bipolar 1 disorder F31.9 and Schizo affective schizophrenia F25.0 [facility] [id number] [place] [address] 37815- 8086 Aug, Mood disorder F39 [facility] [id number] [place] [address] 11787- 0222 Aug, Bipolar 1 disorder F31.9 and Schizo affective schizophrenia F25.0 [facility] [id number] [place] [address] 24341- 7089 Aug, Bipolar 1 disorder F31.9 and Schizo affective schizophrenia F25.0 [facility] [id number] [place] [address] 78619- 7282 Aug, [facility] [id number] [place] [address] 07765- 5839 Aug, PTSD (post-traumatic stress disorder) F43.10 and Borderline personality disorder F60.3 [facility] [id number] [place] [address] 86869- 8309 Aug, [facility] [id number] [place] [address] 97158- 7867 Aug, Mood disorder F39 ; PTSD (post-traumatic stress disorder) F43.10 ; Borderline personality disorder F60.3 and Adjustment disorder with mixed anxiety and depressed mood F43.23 [facility] [address] [address]- 5798 Jul, [facility] [id number] [place] [address] 13926- 4922 Jul, Mood disorder F39 ; PTSD (post-traumatic stress disorder) F43.10 and Borderline personality disorder F60.3 [facility] [address] [address]- 1286 Jul, [place] [id number] [place] [address] 88753- 9548 Jun, Anxiety F41.9 ; ADHD (attention deficit hyperactivity disorder) F90.9 ; Night terror F51.4 ; Bulimia F50.2 ; Severe episode of recurrent major depressive disorder, with psychotic features F33.3 and PTSD ( post-traumatic stress disorder) F43.10 [place] [address] [address]- 5354 Jun, Borderline personality disorder F60.3 ; Mood disorder F39 and PTSD (post-traumatic stress disorder) F43.10 [place] [address] [address]- 0890 Jun, Anxiety F41.9 [place] [id number] [place] [address] 44902- 6151 Jun, Anxiety F41.9 ; ADHD (attention deficit hyperactivity disorder) F90.9 ; Night terror F51.4 ; Bulimia F50.2 ; Severe episode of recurrent major depressive disorder, with psychotic features F33.3 and PTSD ( post-traumatic stress disorder) F43.10 [place] [address] [address]- 7709 Jun, ADHD (attention deficit hyperactivity disorder) F90.9 ; Night terror F51.4 ; Bulimia F50.2 ; Anxiety F41.9 ; Severe episode of recurrent major depressive disorder, with psychotic features F33.3 and PTSD ( post-traumatic stress disorder) F43.10 [facility] [id number] [place] [address] 17552- 9062 May, Anxiety F41.9 [facility] [id number] [place] [address] 92687- 9463 May, PTSD (post-traumatic stress disorder) F43.10 and Borderline personality disorder F60.3 [facility] [id number] [place] [address] 84986- 8576 Apr, [facility] [id number] [place] [address] [id number] March, Dental examination Z01.20 and Dental caries K02.9 [place] [id number] [place] [address] 88333- 4898 March, Dental examination Z01.20 [facility] [id number] [place] [address] 08434- 7467 March, Tooth abscess K04.7 and Tooth pain K08.89 [place] [id number] [place] [address] 14310- 2834 March, Borderline personality disorder F60.3 [facility] [id number] [place] [address] 55952- 6129 March, ADHD (attention deficit hyperactivity disorder) F90.9 ; Night terror F51.4 ; Bulimia F50.2 and Anxiety F41.9 [facility] [id number] [place] [address] 06826- 0000 Feb, Borderline personality disorder F60.3 ; ADHD (attention deficit hyperactivity disorder) F90.9 ; Anxiety F41.9 ; Bulimia F50.2 ; Obsessive-compulsive disorder, unspecified type F42.9 and Night terror F51.4 [facility] [id number] [place] [address] 19250- 6580 Feb, [facility] [place] [facility] [address] [id number] [place] [address]- 9379 Feb, [facility] [place] [facility] [address] [id number] [place] [address]- 1150 Jul, [facility] [place] [facility] [address] [id number] [place] [address]- 7649 Jul, [facility] [place] [facility] [address] [id number] [place] [address]- 5998 Jul, [facility] [place] [facility] [address] [id number] [place] [address]- 4674 Jul, [facility] [place] [facility] [address] [id number] [place] [address]- 5323 Jun, [facility] [place] [facility] [address] [id number] [place] [address]- 8190 Jun, [facility] [place] [facility] [address] [id number] [place] [address]- 7900 Jun, [facility] [place] [facility] [address] [id number] [place] [address]- 5548 Jun, [facility] [place] [facility] [address] [id number] [place] [address]- 0630 Apr, [facility] [place] [facility] [address] [id number] [place] [address]- 2999 Apr, [facility] [place] [facility] [address] [id number] [place] [address]- 0202 March, [facility] [place] [facility] [address] [id number] [place] [address]- 7670 March, [facility] [place] [facility] [address] [id number] [place] [address]- 2447 Jan, [facility] [place] [facility] [address] [id number] [place] [address]- 6417 Jan, [facility] [place] [facility] [address] [id number] [place] [address]- 8846 Jan, [facility] [place] [facility] [address] [id number] [place] [address]- 4219 Jan, [facility] [place] [facility] [address] [id number] [place] [address] 2546 Jan, [facility] [place] [facility] [address] [id number] [place] [address]- 6326 Dec, [facility] [place] [facility] [address] [id number] [place] [address]- 5003 Dec, [facility] [place] [facility] [address] [id number] [place] [address]- 7286 Oct, [facility] [place] [facility] [address] [id number] [place] [address]- 5720 Oct, [facility] [place] [facility] [address] [id number] [place] [address]- 9196 Oct, [facility] [place] [facility] [address] [id number] [place] 5594 Oct, [facility] [place] [facility] [address] [id number] [place] [address]- 8665 Sep, [facility] [place] [facility] [address] [id number] [place] 0009 Sep, [facility] [place] [facility] [address] [id number] [place] [address]- 7974 Sep, [facility] [place] [facility] [address] [id number] [place] [address]- 0970 Aug, [facility] [place] [facility] [address] [id number] [place] [address]- 7496 Aug, [facility] [place] [facility] [address] [id number] [place] [address]- 0476 Aug, [facility] [place] [facility] [address] [id number] [place] [address]- 6996 Aug, [facility] [place] [facility] [address] [id number] [place] [address]- 1280 Aug, [facility] [place] [facility] [address] [id number] [place] [address]- 0724 Aug, [facility] [place] [facility] [address] [id number] [place] [address]- 0160 Aug, [facility] [place] [facility] [address] [id number] [place] [address]- 4543 Jul, [facility] [place] [facility] [address] [id number] [place] [address]- 5818 Jun, [facility] [place] [facility] [address] [id number] [place] [address]- 1844 Jun, [facility] [place] [facility] [address] [id number] [place] [address]- 6126 Jun, [facility] [place] [facility] [address] [id number] [place] [address]- 5697 Jun, [facility] [place] [facility] [address] [id number] [place] [address]- 5028 Jun, [facility] [place] [facility] [address] [id number] [place] [address]- 3457 Jun, [facility] [place] [facility] [address] [id number] [place] [address]- 2557 May, [facility] [place] [facility] [address] [id number], [place] [address]- 6410 May, [facility] [place] [facility] [address] [id number] [place] [address]- 1938 May, [facility] [place] [facility] [address] [id number] [place] [address]- 8437 May, [facility] [place] [facility] [address] [id number] [place] [address]- 0359 March, [facility] [place] [facility] [address] [id number] [place] [address]- 7727 March, [facility] [address] [id number] [place] [address]- 3572 March, [facility] [address] [id number] [place] [address]- 7370 Feb, [facility] [address] [id number] [place] [address]- 5966 Feb, [facility] [address] [id number] [place] [address]- 9396 Feb, [facility] [address] [id number] [place] [address]- 1400 Feb, [facility] [address] [id number] [place] [address]- 2308 Jan, [facility] [address] [id number] [place] [address]- 1004 Jan, [facility] [address] [id number] [place] [address]- 1787 Jan, [facility] [address] [id number] [place] [address]- 7009 Dec, [facility] [address] [facility] [id number] [place] [address]- 0932 Dec, [facility] [address] [id number] [place] [address]- 3036 Dec, [facility] [address] [id number] [place] [address]- 4286 05 Dec, 2012 [facility] [place] [facility] [address] [id number] [place] [address]- 5046 04 Dec, 2012 [facility] [place] [facility] [address] [id number] [place] [address]- 0066 Nov, [facility] [place] [facility] [address] [id number] [place] [address]- 0694 Nov, [facility] [address] [id number] [place] [address]- 4800 Nov, [facility] [place] [facility] [address] [id number] [place] [address]- 1496 Nov, [facility] [place] [facility] [address] [id number] [place] [address]- 7104 Oct, [facility] [place] [facility] [address] [id number] [place] [address]- 7196 Oct, [facility] [place] [facility] [address] [id number] [place] [address]- 3310 Oct, [facility] [place] [facility] [address] [id number] [place] [address]- 8473 Oct, [facility] [place] [facility] [address] [id number] [place] [address]- 3378 Oct, [facility] [place] [facility] [address] [id number] [place] [address]- 7625 Oct, [facility] [place] [facility] [address] [id number] [place] [address]- 5743 Oct, [facility] [place] [facility] [address] [id number] [place] [address]- 1316 Oct, [facility] [place] [facility] [address] [id number] [place] [address]- 4136 Oct, [facility] [place] [facility] [address] [id number] [place] [address]- 7090 Oct, [facility] [place] [facility] [address] [id number] [place] [address]- 6366 Oct, [facility] [place] [facility] [address] [id number] [place] [address]- 7986 Oct, [facility] [place] [facility] [address] [id number] [place] [address]- 8500 Oct, [facility] [place] [facility] [address] [id number] [place] [address]- 4500 Sep, [facility] [place] [facility] [address] [id number] [place] [address]- 5101 Sep, [facility] [place] [facility] [address] [id number] [place] [address]- 6776 Sep, [facility] [place] [facility] [address] [id number] [place] [address]- 8690 Sep, [facility] [place] [facility] [address] [id number] [place] [address]- 1717 Sep, [facility] [place] [facility] [id number] [place] [address], [place] [address]- 5815 Sep, [facility] [place] [facility] [address] [id number] [place] [address]- 0944 Sep, [facility] [place] [facility] [address] [facility] [id number] [address] Sep, [facility] [place] [facility] [address] [id number], [place] [address] Sep, [facility] [place] [facility] [address] [id number] [place] [address] Sep, [facility] [place] [facility] [address] [facility] [id number][place] [address] Sep, [facility] [place] [facility] [address] [id number], [place] [address] Sep, [facility] [place] [facility] [address] [id number] [address] Aug, [facility] [place] [facility] [address] [id number], [place] [address] Aug, [facility] [place] [facility] [address] [facility] [id number] [address] Aug, [facility] [place] [facility] [address] [facility] [id number], [place] [address] Aug, [facility] [place] [facility] [address] [id number] [place] [address] 14 Aug, 2012 [facility] [place] [facility] [address] [id number] [place] [address] 14 Aug, 2012 [facility] [place] [facility] [address] [id number] [place] [address] Aug, [facility] [place] [facility] [address] [id number] [place] [address]- [address] Aug, [facility] [place] [facility] [address] [id number] [place] [address] Aug, [facility] [place] [facility] [address] [id number] [place] [address] Aug, [facility] [place] [facility] [address] [id number] [place] [address]- 24[address] Aug, [facility] [place] [facility] [address] [id number] [place] [address] Aug, [facility] [place] [facility] [address] [id number] [place] [address] 28 Jul, 2012 [facility] [place] [facility] [address] [id number] [place] [address]- [address] 27 Jul, 2012 [facility] [place] [facility] [address] [id number] [place] [address]- [address] 21 Jul, 2012 [facility] [place] [facility] [address] [id number] [place] [address]- [address] 10 Jul, 2012 [facility] [place] [facility] [address] [id number] [place] [address] 05 Jul, 2012 [facility] [place] [facility] [address] [id number] [place] [address] 04 Jul, 2012 [facility] [place] [facility] [address] [id number] [place] [address] 27 Jun, 2012 [facility] [place] [facility] [address] [id number] [place] [address]- [address] Jun, [facility] [place] [facility] [address] [id number] [place] [address]- [address] Jun, [facility] [place] [facility] [address] [id number] [place] [address] May, [facility] [place] [facility] [address] [id number] [place] [address]- [address] May, [facility] [place] [facility] [address] [id number] [place] [address] May, [facility] [place] [facility] [address] [id number] [place] [address] May, [facility] [place] [facility] [address] [id number] [place] [address]- [address] May, [facility] [place] [facility] [address] [id number] [place] [address] May, [facility] [place] [facility] [address] [id number] [place] [address] Apr, [facility] [place] [facility] [address] [id number] [place] [address] Feb, [facility] [place] [facility] [address] [id number] [place] [address] Feb, [facility] [place] [facility] [address] [id number] [place] [address] Feb, [facility] [place] [facility] [address] [id number] [address] 10 Feb, 2012 [facility] [place] [facility] [address] [id number] [place] [address] 16 Jan, 2012 [facility] [place] [facility] [address] [id number] [place] [address] Jan, [facility] [place] [facility] [address] [id number] [place] [address] Dec, [facility] [place] [facility] [address] [id number] [place] [address] 28 Dec, 2011 [facility] [address] [id number] [place] [address] 2546 21 Dec, 2011 [facility] [place] [facility] [address] [id number] [place] [address] 14 Dec, 2011 [facility] [place] [facility] [address] [id number] [place] [address] 2546 14 Dec, 2011 [facility] [place] [facility] [address] [id number] [place] [address] 25[address] 13 Dec, 2011 [facility] [place] [facility] [address] [id number] [place] [address] 2546 09 Dec, 2011 [facility] [place] [facility] [address] [id number] [place] [address] 07 Dec, 2011 [facility] [place] [facility] [address] [id number] [place] [address] 02 Dec, 2011 [facility] [place] [facility] [address] [id number] [place] [address] 30 Nov, 2011 [facility] [place] [facility] [address] [id number] [place] [address] 27 Nov, 2011 [facility] [place] [facility] [address] [id number] [place] [address] 24 Nov, 2011 [facility] [place] [facility] [address] [id number] [place] [address] 2546 19 Nov, 2011 [facility] [place] [facility] [address] [id number] [place] [address] 2546 17 Nov, 2011 [facility] [place] [facility] [address] [id number] [place] [address] 2546 16 Nov, 2011 [facility] [place] [facility] [address] [id number] [place] [address] 10 Nov, 2011 [facility] [place] [facility] [address] [id number] [place] [address]- [address] Nov, [facility] [place] [facility] [address] [id number] [place] [address] 7737 Nov, [facility] [place] [facility] [address] [id number] [place] [address] 9546 Oct, [facility] [place] [facility] [address] [id number] [place] [address] Oct, [facility] [place] [facility] [address] [id number] [place] [address] Oct, [facility] [place] [facility] [address] [id number] [place] [address] 84[address] Oct, [facility] [place] [facility] [address] [id number] [place] [address] Oct, [facility] [place] [facility] [address] [id number] [place] [address] 2868 Oct, [facility] [place] [facility] [address] [id number] [place] [address] Sep, [facility] [place] [facility] [address] [id number] [place] [address] Aug, [facility] [place] [facility] [address] [id number] [place] [address] Jul, [facility] [place] [facility] [address] [id number], [place] [address] Nov, [facility] [place] [facility] [address] [id number] [address] Nov, [facility] [place] [facility] [address] [id number] [place] [address] Oct, [facility] [place] [facility] [address] [id number], [place] [address] Sep, [facility] [place] [facility] [address] [id number] [address] Sep, [facility] [place] [facility] [id number] [address] 18 Aug, 2010 [facility] [id number] [address] 14 Aug, 2010 [facility] [id number] [address] 14 Aug, 2010 [facility] [id number] [place] [address]- [address] Feb, [facility] [id number] [place] [address]- [address]68 10 Dec, 2009 [facility] [id number] [place] [address]492- 6942 Oct, [facility] [id number] [place] [address]- [address] Oct, [facility] [id number] [place] [address]- 8951 Oct, [facility] [id number] [place] [address]- [address] Sep, [facility] [id number] [place] [address]- 78[address] Sep, [facility] [id number] [address] Sep, [facility] [id number] [address] Aug, [facility] [id number] [address] Aug, IMMUNIZATIONS No Known Immunizations SOCIAL HISTORY Never Assessed REASON FOR VISIT Rx from lab PLAN OF CARE VITAL SIGNS MEDICATIONS Medication Instructions Dosage Frequency Start Date End Date Duration Status Flagyl 500 mg Orally 2 times a day 1 tablet 12h 11 Feb, 2018 07 days Active RESULTS No Results PROCEDURES No [...] EGD Hospitalization History mental health issues x2 [facility] [place] 2016 & 02/2017 Hospitalization History Surgery(s)/Childbirth(s)
--- OUTSIDE RECORDS SUMMARY | 2018-08-03 08:35 | XMS REPORT ---
Author Author RUBEN Braga Organization [facility] Address [address] [place] [address] Care Team Providers Care Real Estate Broker Name Role Phone Maria Luz RUBEN Unavailable PROBLEMS Type Condition ICD9-CM Code QXO22-TC Code Onset Dates Condition Status SNOMED Code Problem Adjustment disorder with mixed anxiety and depressed mood F43.23 Active 07067130 Problem Bipolar 1 disorder F31.9 Active 403184408 Problem Schizo affective schizophrenia F25.0 Active 507315591 Problem Dysmenorrhea N94.6 Active 370101210 Problem Morbid obesity due to excess calories E66.01 Active 698058912 Problem Cannabis use disorder, mild, abuse F12.10 Active 73454657 Problem Sciatica, unspecified side M54.30 Active 43382822 Problem Other chronic pain G89.29 Active 08486748 Problem Lumbago with sciatica, right side M54.41 Active 290667601 Problem Anxiety F41.9 Active 55634380 Problem PTSD (post-traumatic stress disorder) F43.10 Active 94477165 Problem Borderline personality disorder F60.3 Active 31564441 Problem Severe episode of recurrent major depressive disorder, with psychotic features F33.3 Active 09239421 Problem Night terror F51.4 Active 54031858 Problem Mood disorder F39 Active 92824068 ALLERGIES No Information ENCOUNTERS Encounter Location Date Diagnosis [facility] [address] [facility] [id number] [address] Jun, [facility] [id number] [place] [address] 68488- 6045 May, Skin tags, multiple acquired L91.8 ; Dysmenorrhea N94.6 and Acute non-recurrent maxillary sinusitis J01.00 [facility] [address] [id number] [address] May, PTSD (post-traumatic stress disorder) F43.10 [place] [address] [address] 26 May, 2018 Other residential (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 [place] [id number] [place] [address] 95732- 7977 11 May, 2018 PTSD (post-traumatic stress disorder) F43.10 ; Mood disorder F39 ; Borderline personality disorder F60.3 and Cannabis use disorder, mild, abuse F12.10 [place] [id number] [place] [address] 44688- 8642 May, BMI 40.0-44.9, adult Z68.41 [place] [id number] [place] [address] 00032- 4654 18 Apr, 2018 BMI 40.0-44.9, adult Z68.41 [place] [id number] [place] [address] 63283- 6474 14 Apr, 2018 Acute non-recurrent maxillary sinusitis J01.00 [place] [id number] [place] [address] 79724- 1974 11 Apr, 2018 PTSD (post-traumatic stress disorder) F43.10 ; Mood disorder F39 ; Borderline personality disorder F60.3 ; Cannabis use disorder, mild, abuse F12.10 and Other residential (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 [place] [address] [place] [address] 46277- 4927 08 Apr, 2018 [place] [id number] [place] [address] 49271- 0164 07 Apr, 2018 Annual physical exam Z00.00 and High risk medication use Z79.899 [place] [id number] [place] [address] 37582- 4953 07 Apr, 2018 PTSD (post-traumatic stress disorder) F43.10 [place] [address] [place] [address] 79442- 8060 Apr, [place] [id number] [place] [address] 68858- 8360 March, BMI 40.0-44.9, adult Z68.41 ; Morbid obesity due to excess calories E66.01 ; Lumbago with sciatica, right side M54.41 and Other chronic pain G89.29 [place] [id number] [place] [address] 70739- 5790 March, PTSD (post-traumatic stress disorder) F43.10 [place] [id number] [place] [address] 27241- 7957 March, PTSD (post-traumatic stress disorder) F43.10 ; Mood disorder F39 ; Borderline personality disorder F60.3 and Cannabis use disorder, mild, abuse F12.10 [place] [id number] [place] [address] 85898- 9973 Feb, [place] [id number] [place] [address] 15753- 1805 Feb, [facility] [address] [address] Feb, Breast cancer screening Z12.31 [id number] [place] [address] 97706- 9484 Feb, Mood disorder F39 and PTSD (post-traumatic stress disorder) F43.10 [place] [id number] [place] [address] 01306- 7029 Feb, PTSD (post-traumatic stress disorder) F43.10 ; Mood disorder F39 ; Borderline personality disorder F60.3 and Cannabis use disorder, mild, abuse F12.10 [place] [id number] [place] [address] 41179- 6398 Feb, Schizo affective schizophrenia F25.0 ; Adjustment disorder with mixed anxiety and depressed mood F43.23 ; Night terror F51.4 ; Anxiety F41.9 and Borderline personality disorder F60.3 [place] [id number] [place] [address] 65095- 1256 Feb, [facility] [address] [address]- 9369 Feb, Mood disorder F39 [facility] [address] 15851- 8500 Feb, Annual physical exam Z00.00 ; BMI 40.0-44.9, adult Z68.41 and Nipple discharge N64.52 [place] [address] [address]28- 6278 Jan, Schizo affective schizophrenia F25.0 ; Adjustment disorder with mixed anxiety and depressed mood F43.23 ; Night terror F51.4 ; Anxiety F41.9 and Borderline personality disorder F60.3 [place] [address] 73418- 4211 Jan, Mood disorder F39 ; PTSD (post-traumatic stress disorder) F43.10 ; Borderline personality disorder F60.3 and High risk medication use Z79.899 [place] [address] 85341- 5197 Dec, Anxiety F41.9 and Borderline personality disorder F60.3 [place] [id number] [place] [address] 38610- 1826 Dec, [place] [address] 57668- 0837 Dec, Anxiety F41.9 and Borderline personality disorder F60.3 [place] [id number] [place] [address] 45314- 9488 Dec, [place] [address] 58936- 7600 Dec, [place] [id number] [place] [address] 71201- 5862 Nov, Acute non-recurrent maxillary sinusitis J01.00 ; Mood disorder F39 and Sciatica, unspecified side M54.30 [facility] [id number] [place] [address] 98106- 6982 Nov, Mood disorder F39 ; PTSD (post-traumatic stress disorder) F43.10 and Borderline personality disorder F60.3 [facility] [id number] [place] [address] 24478- 4044 Nov, Anxiety F41.9 and Borderline personality disorder F60.3 [facility] [address] 685393- 7124 Nov, [facility] [address] 426999- 842 Nov, Anxiety F41.9 and Sciatica, unspecified side M54.30 [facility] [address] 21912- 8541 Oct, Anxiety F41.9 [facility] [address] 458361- 9859 Oct, Mood disorder F39 ; PTSD (post-traumatic stress disorder) F43.10 ; Borderline personality disorder F60.3 and High risk medication use Z79.899 [facility] [id number] [place] [address] [id number] Oct, Dental caries K02.9 and Dental examination Z01.20 [facility] [id number] [place] [address] 09502- 5632 Sep, Dysuria R30.0 and Abdominal pain, right lower quadrant R10.31 [facility] [id number] [place] [address] 48726- 2462 Aug, Mood disorder F39 ; PTSD (post-traumatic stress disorder) F43.10 and Borderline personality disorder F60.3 [facility] [id number] [place] [address] 80616- 0497 Aug, [facility] [address] 19957- 5256 Aug, [facility] [id number] [address]- 9421 Aug, Severe episode of recurrent major depressive disorder, with psychotic features F33.3 ; PTSD (post-traumatic stress disorder) F43.10 ; Adjustment disorder with mixed anxiety and depressed mood F43.23 and Borderline personality disorder F60.3 [facility] [id number] [place] [address] 98580- 6788 Aug, Mood disorder F39 ; PTSD (post-traumatic stress disorder) F43.10 and Borderline personality disorder F60.3 [facility] [id number] [place] [address] 92130- 4216 Aug, [facility] [id number] [place] [address] 02624- 6863 Aug, Bipolar 1 disorder F31.9 and Schizo affective schizophrenia F25.0 [facility] [id number] [place] [address] 80453- 5113 Aug, Mood disorder F39 [facility] [id number] [place] [address] 44808- 4281 Aug, Bipolar 1 disorder F31.9 and Schizo affective schizophrenia F25.0 [facility] [id number] [place] [address] 14681- 9744 Aug, Bipolar 1 disorder F31.9 and Schizo affective schizophrenia F25.0 [facility] [id number] [place] [address] 99880- 9013 Aug, [facility] [id number] [place] [address] 20065- 6620 Aug, PTSD (post-traumatic stress disorder) F43.10 and Borderline personality disorder F60.3 [facility] [id number] [place] [address] 15030- 4486 Aug, [facility] [id number] [place] [address] 22252- 6876 Aug, Mood disorder F39 ; PTSD (post-traumatic stress disorder) F43.10 ; Borderline personality disorder F60.3 and Adjustment disorder with mixed anxiety and depressed mood F43.23 [facility] [address] [address]- 9012 Jul, [facility] [address] [address]- 0625 Jul, Mood disorder F39 ; PTSD (post-traumatic stress disorder) F43.10 and Borderline personality disorder F60.3 [facility] [address] [address]- 7645 Jul, [place] [id number] [place] [address] 63444- 9181 Jun, Anxiety F41.9 ; ADHD (attention deficit hyperactivity disorder) F90.9 ; Night terror F51.4 ; Bulimia F50.2 ; Severe episode of recurrent major depressive disorder, with psychotic features F33.3 and PTSD ( post-traumatic stress disorder) F43.10 [place] [address] [address]- 8040 Jun, Borderline personality disorder F60.3 ; Mood disorder F39 and PTSD (post-traumatic stress disorder) F43.10 [facility] [address] [address]- 2332 Jun, Anxiety F41.9 [facility] [id number] [place] [address] 38805- 1491 Jun, Anxiety F41.9 ; ADHD (attention deficit hyperactivity disorder) F90.9 ; Night terror F51.4 ; Bulimia F50.2 ; Severe episode of recurrent major depressive disorder, with psychotic features F33.3 and PTSD ( post-traumatic stress disorder) F43.10 [facility] [address] [address]- 5188 Jun, ADHD (attention deficit hyperactivity disorder) F90.9 ; Night terror F51.4 ; Bulimia F50.2 ; Anxiety F41.9 ; Severe episode of recurrent major depressive disorder, with psychotic features F33.3 and PTSD ( post-traumatic stress disorder) F43.10 [facility] [id number] [place] [address] 93937- 149 May, Anxiety F41.9 [facility] [id number] [place] [address] 63266- 6765 May, PTSD (post-traumatic stress disorder) F43.10 and Borderline personality disorder F60.3 [place] [id number] [place] [address] 17917- 7262 Apr, [facility] [id number] [place] [address] [id number] March, Dental examination Z01.20 and Dental caries K02.9 [place] [id number] [place] [address] 83054- 7983 March, Dental examination Z01.20 [facility] [id number] [place] [address] 89779- 8602 March, Tooth abscess K04.7 and Tooth pain K08.89 [place] [id number] [place] [address] 34258- 4041 March, Borderline personality disorder F60.3 [facility] [id number] [place] [address] 34480- 5088 March, ADHD (attention deficit hyperactivity disorder) F90.9 ; Night terror F51.4 ; Bulimia F50.2 and Anxiety F41.9 [facility] [id number] [place] [address] 80568- 0882 Feb, Borderline personality disorder F60.3 ; ADHD (attention deficit hyperactivity disorder) F90.9 ; Anxiety F41.9 ; Bulimia F50.2 ; Obsessive-compulsive disorder, unspecified type F42.9 and Night terror F51.4 [facility] [id number] [place] [address] 07721- 9796 Feb, [facility] [place] [facility] [address] [id number] [place] [address]- 3631 Feb, [facility] [place] [facility] [address] [id number] [place] [address]- 5730 Jul, [facility] [place] [facility] [address] [id number] [place] [address]272 Jul, [facility] [place] [facility] [address] [id number] [place] [address]- 0660 Jul, [facility] [place] [facility] [address] [id number] [place] [address]- 6005 Jul, [facility] [place] [facility] [address] [id number] [place] [address]- 1435 Jun, [facility] [place] [facility] [address] [id number] [place] [address]- 8446 Jun, [facility] [place] [facility] [address] [id number] [place] [address]- 5015 Jun, [facility] [place] [facility] [address] [id number] [place] [address]- 2175 Jun, [facility] [place] [facility] [address] [id number] [place] [address]- 7476 Apr, [facility] [place] [facility] [address] [id number] [address]- 0035 Apr, [facility] [place] [facility] [address] [id number] [address]- 0238 March, [facility] [place] [facility] [address] [id number] [place] [address]- 7615 March, [facility] [place] [facility] [address] [id number] [address]- 0221 Jan, [facility] [place] [facility] [address] [id number] [place] 2732 Jan, [facility] [place] [facility] [address] [id number] [place] [address]- 1365 Jan, [facility] [address] [id number] [place] [address]- 0136 Jan, [facility] [place] [facility] [address] [id number] [place] [address]- 2416 Jan, [facility] [address] [id number] [place] [address]- 4003 Dec, [facility] [place] [facility] [address] [id number] [place] [address]- 1494 Dec, [facility] [address] [id number] [place] [address]- 2258 Oct, [facility] [address] [id number] [place] [address]- 5460 Oct, [facility] [place] [facility] [address] [id number] [place] [address]- 9680 Oct, [facility] [address] [id number] [place] 5468 Oct, [facility] [place] [facility] [address] [facility] [id number] [place] [address]- 8876 Sep, [facility] [address] [facility] [id number] [place] 3870 Sep, [facility] [place] [facility] [address] [id number] [place] [address]- 9164 Sep, [facility] [place] [facility] [address] [id number] [place] [address]- 5627 Aug, [facility] [place] [facility] [address] [id number] [place] [address]- 3929 Aug, [facility] [place] [facility] [address] [facility] [id number] [place] [address]- 2546 Aug, [facility] [place] [facility] [address] [facility] [id number] [place] [address]- 0794 Aug, [facility] [place] [facility] [address] [id number] [place] [address]- 0250 Aug, [facility] [place] [facility] [address] [id number] [place] [address]- 9162 Aug, [facility] [place] [facility] [address] [id number] [place] [address]- 9819 Aug, [facility] [place] [facility] [address] [id number] [place] [address]- 4848 Jul, [facility] [place] [facility] [address] [id number] [place] [address]- 7489 Jun, [facility] [place] [facility] [address] [id number] [place] [address]- 4933 Jun, [facility] [place] [facility] [address] [id number] [place] [address]- 4805 Jun, [facility] [place] [facility] [address] [id number] [place] [address]- 3724 Jun, [facility] [place] [facility] [address] [id number] [place] [address]- 3546 Jun, [facility] [place] [facility] [address] [id number] [place] [address]- 6574 Jun, [facility] [place] [facility] [address] [id number] [place] [address]- 0983 May, [facility] [place] [facility] [address] [id number] [address]- 3711 May, [facility] [place] [facility] [address] [id number] [place] [address]- 1790 May, [facility] [place] [facility] [address] [id number] [place] [address]- 1394 May, [facility] [place] [facility] [address] [id number] [place] [address]- 2034 March, [facility] [place] [facility] [address] [id number] [place] [address]- 9053 March, [facility] [address] [id number] [place] [address]- 2620 March, [facility] [address] [id number] [place] [address]- 5887 30 Feb, 2013 [facility] [address] [id number] [place] [address]- 6387 Feb, [facility] [address] [id number] [place] [address]- 0977 Feb, [facility] [address] [id number] [place] [address]- 4191 Feb, [facility] [address] [id number] [place] [address]- 5239 Jan, [facility] [id number] [place] [address]- 8781 Jan, [facility] [place] [facility] [address] [id number] [place] [address]- 0265 Jan, [facility] [address] [id number] [place] [address]- 9611 Dec, [facility] [id number] [place] [address]- 2216 Dec, [facility] [address] [id number] [place] [address]- 2421 Dec, [facility] [place] [facility] [address] [id number] [place] [address]- 6156 Dec, [facility] [place] [facility] [address] [id number] [place] [address]- 8955 Dec, [facility] [place] [facility] [address] [id number] [place] [address]- 7693 Nov, [facility] [place] [facility] [address] [id number] [place] [address]- 9473 Nov, [facility] [place] [facility] [address] [id number] [place] [address]- 9521 Nov, [facility] [address] [id number] [place] [address]- 5296 Nov, [facility] [address] [id number] [place] [address]- 5216 Oct, [facility] [address] [id number] [place] [address]- 5276 Oct, [facility] [address] [id number] [place] [address]- 7085 Oct, [facility] [address] [id number] [place] [address]- [address] Oct, [facility] [address] [id number] [place] [address]- 4389 Oct, [facility] [address] [id number] [place] [address]- 2369 Oct, [facility] [address] [id number] [place] [address]- [address] Oct, [facility] [address] [id number] [place] [address]- [address] Oct, [facility] [address] [id number] [place] [address]- 7583 Oct, [facility] [address] [id number] [place] [address]- 2085 Oct, [facility] [address] [id number] [place] [address]- 1224 Oct, [facility] [place] [facility] [address] [id number] [place] [address]- [address] Oct, [facility] [address] [id number] [place] [address]- 2994 Oct, [facility] [address] [id number] [place] [address]- 6921 Sep, [facility] [place] [facility] [address] [id number] [place] [address]- 3890 Sep, [facility] [place] [facility] [address] [id number] [place] [address]- 1364 Sep, [facility] [place] [facility] [address] [id number] [place] [address]- 8510 Sep, [facility] [place] [facility] [address] [id number] [place] [address] Sep, [facility] [place] [facility] [address] [id number] [place] [address] Sep, [facility] [place] [facility] [address] [id number] [place] [address] Sep, [facility] [place] [facility] [address] [id number] [place] [address] Sep, [facility] [place] [facility] [address] [id number] [place] [address] Sep, [facility] [place] [facility] [address] [id number] [place] [address] Sep, [facility] [place] [facility] [address] [id number] [place] [address] Sep, [facility] [place] [facility] [address] [id number] [address] Sep, [facility] [place] [facility] [address] [id number] [address] Aug, [facility] [place] [facility] [address] [id number] [place] [address] Aug, [facility] [place] [facility] [address] [id number] [place] [address] Aug, [facility] [place] [facility] [address] [id number] [place] [address] Aug, [facility] [place] [facility] [address] [id number] [place] [address] 14 Aug, 2012 [facility] [place] [facility] [address] [id number] [place] [address] 14 Aug, 2012 [facility] [place] [facility] [address] [id number] [place] [address] Aug, [facility] [place] [facility] [address] [id number] [place] [address] Aug, [facility] [place] [facility] [address] [id number] [place] [address] Aug, [facility] [place] [facility] [address] [id number] [place] [address] Aug, [facility] [place] [facility] [address] [id number] [place] [address] Aug, [facility] [place] [facility] [address] [id number] [place] [address] Aug, [facility] [place] [facility] [address] [id number] [place] [address] 28 Jul, 2012 [facility] [place] [facility] [address] [id number] [place] [address] 27 Jul, 2012 [facility] [place] [facility] [address] [id number] [place] [address] 21 Jul, 2012 [facility] [place] [facility] [address] [id number] [place] [address] 10 Jul, 2012 [facility] [place] [facility] [address] [id number] [place] [address] 05 Jul, 2012 [facility] [place] [facility] [address] [id number] [place] [address] 04 Jul, 2012 [facility] [place] [facility] [address] [id number] [place] [address] 27 Jun, 2012 [facility] [place] [facility] [address] [id number] [place] [address] Jun, [facility] [place] [facility] [address] [id number] [place] [address] Jun, [facility] [place] [facility] [address] [id number] [place] [address] May, [facility] [place] [facility] [address] [id number] [place] [address] May, [facility] [place] [facility] [address] [id number] [place] [address] May, [facility] [place] [facility] [address] [id number] [place] [id number] May, [facility] [place] [facility] [address] [id number] [place] [address] May, [facility] [place] [facility] [address] [id number] [place] [address] May, [facility] [place] [facility] [address] [id number] [place] [address] Apr, [facility] [place] [facility] [address] [id number] [place] [address] Feb, [facility] [place] [facility] [address] [id number] [place] [address] Feb, [facility] [place] [facility] [address] [id number] [place] [address] Feb, [facility] [place] [facility] [address] [id number] [place] [address] 10 Feb, 2012 [facility] [place] [facility] [address] [id number] [place] [address] 16 Jan, 2012 [facility] [place] [facility] [address] [id number] [place] [id number] [address] Jan, [facility] [place] [facility] [address] [id number] [place] [address] 29 Dec, 2011 [facility] [place] [facility] [address] [id number] [place] [address] 28 Dec, 2011 [facility] [address] [id number] [place] [address] 21 Dec, 2011 [facility] [place] [facility] [address] [id number] [place] [address]46 14 Dec, 2011 [facility] [place] [facility] [address] [id number] [place] [address] 14 Dec, 2011 [facility] [place] [facility] [address] [id number] [place] [address] 2546 13 Dec, 2011 [facility] [address] [id number] [place] [address] 09 Dec, 2011 [facility] [place] [facility] [address] [id number] [place] [address] 2546 07 Dec, 2011 [facility] [place] [facility] [address] [id number] [place] [address] 02 Dec, 2011 [facility] [address] [id number] [place] [address] 30 Nov, 2011 [facility] [place] [facility] [address] [id number] [place] [address] 27 Nov, 2011 [facility] [address] [id number] [place] [address] 24 Nov, 2011 [facility] [place] [facility] [address] [id number] [place] [address]46 19 Nov, 2011 [facility] [place] [facility] [address] [id number] [place] [address] 2546 17 Nov, 2011 [facility] [place] [facility] [address] [id number] [place] [address] 39[address] 16 Nov, 2011 [facility] [place] [facility] [address] [id number] [place] [address] 2546 10 Nov, 2011 [facility] [place] [facility] [address] [id number] [place] [address] Nov, [facility] [address] [id number] [place] [address] Nov, [facility] [place] [facility] [address] [id number] [place] [address] Oct, [facility] [place] [facility] [address] [id number] [place] [address] Oct, [facility] [place] [facility] [address] [id number] [place] [address]128 Oct, [facility] [place] [facility] [address] [id number] [place] [address] 45[address] Oct, [facility] [place] [facility] [address] [id number] [place] [address] 96[address] Oct, [facility] [place] [facility] [address] [id number] [place] [address] Oct, [facility] [place] [facility] [address] [id number] [place] [address] Sep, [facility] [place] [facility] [address] [id number] [place] [address] Aug, [facility] [place] [facility] [address] [id number] [place] [address] Jul, [facility] [place] [facility] [address] [id number] [place] [address] Nov, [facility] [place] [facility] [address] [id number] [address] Nov, [facility] [place] [facility] [address] [id number] [place] [address] 94[address] Oct, [facility] [place] [facility] [address] [id number] [place] [address] Sep, [facility] [place] [facility] [address] [id number] [place] [address] 20[address] Sep, [facility] [place] [facility] [id number] [address] 18 Aug, 2010 [facility] [id number] [address] [address] 14 Aug, 2010 [facility] [id number] [address] 14 Aug, 2010 [facility] [address] [id number] [address] Feb, [facility] [id number] [place] [address] 10 Dec, 2009 [facility] [id number] [place] [address]- [address] Oct, [facility] [id number] [place] [address]- [address] Oct, [facility] [id number] [place] [address]8210- [address]447 Oct, [facility] [id number] [place] [address]- [address] Sep, [facility] [id number] [place] [address]- [address] Sep, [facility] [id number] [address] Sep, [facility] [id number] [address] Aug, [facility] [id number] [id number] Aug, IMMUNIZATIONS No Known Immunizations SOCIAL HISTORY Never Assessed REASON FOR VISIT PLAN OF CARE Activity Details Follow Up Not rescheduled with me. Reason:Anxiety, depression VITAL SIGNS MEDICATIONS Medication Instructions Dosage Frequency Start Date End Date Duration Status Gabapentin 800 MG Orally 3 times a day 1 tablet 8h 90 days Unknown Voltaren 1 % Transdermal 2 times a day apply 4gm as needed to lower back as needed 12h 31 Nov, 2017 30 days Unknown Quetiapine Fumarate 300 MG Orally Once a day at night 1 tablet 30 days Unknown Desvenlafaxine Succinate ER 100 MG Orally in morning 1 tablet 30 days Unknown Seroquel 100 MG Orally Three times a day 1 tablet 8h 27 Oct, 2017 30 days Unknown Flagyl 500 mg Orally 2 times a day 1 tablet 12h 11 Feb, 2018 07 days Unknown Birney Carbonate 300 MG Orally twice a day 1 capsule 12h 90 days Unknown RESULTS No Results PROCEDURES Procedure Date Ordered Result Body Site Psychotherapy, patient &/family, 45 minutes, established patient February 21, 2018 INSTRUCTIONS MEDICATIONS ADMINISTERED No Known Medications [...] mental health issues x2 Ward Unit in [place] 2016 & 02/2017 Hospitalization History Surgery(s)/Childbirth(s)
--- OUTSIDE RECORDS SUMMARY | 2018-08-03 08:36 | XMS REPORT ---
Author Author ESPERANZA LUCI Organization [facility] Address [address] [place] [address] Care Team Providers Care Coupon Redemption Clerk Name Role Phone GARIMALUCERO REEDA Unavailable PROBLEMS Type Condition ICD9-CM Code ZGO34-SE Code Onset Dates Condition Status SNOMED Code Problem Mood disorder F39 Active 34095070 Problem Schizo affective schizophrenia F25.0 Active 830118430 Problem Adjustment disorder with mixed anxiety and depressed mood F43.23 Active 66704505 Problem Other chronic pain G89.29 Active 56498197 Problem Lumbago with sciatica, right side M54.41 Active 307243130 Problem Sciatica, unspecified side M54.30 Active 45675666 Problem Bipolar 1 disorder F31.9 Active 563749442 Problem Morbid obesity due to excess calories E66.01 Active 394955122 Problem Cannabis use disorder, mild, abuse F12.10 Active 08619322 Problem Night terror F51.4 Active 95681537 Problem Anxiety F41.9 Active 32214042 Problem PTSD (post-traumatic stress disorder) F43.10 Active 88695138 Problem Borderline personality disorder F60.3 Active 51252251 Problem Severe episode of recurrent major depressive disorder, with psychotic features F33.3 Active 04873416 ALLERGIES No Information ENCOUNTERS Encounter Location Date Diagnosis [facility] [address] [id number], [place] [address] Jun, [facility] [address] [id number], [place] [address] May, [facility] [id number] [place] [address] 51849- 2855 May, PTSD (post-traumatic stress disorder) F43.10 ; Mood disorder F39 ; Borderline personality disorder F60.3 and Cannabis use disorder, mild, abuse F12.10 [facility] [id number] [place] [address] 01206- 9959 10 May, 2018 BMI 40.0-44.9, adult Z68.41 [address] [address] 91759- 3932 18 Apr, 2018 BMI 40.0-44.9, adult Z68.41 [place] [id number] [place] [address] 66393- 1250 14 Apr, 2018 Acute non-recurrent maxillary sinusitis J01.00 [place] [address] 26754- 7299 11 Apr, 2018 PTSD (post-traumatic stress disorder) F43.10 ; Mood disorder F39 ; Borderline personality disorder F60.3 ; Cannabis use disorder, mild, abuse F12.10 and 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 [place] [address] 81936- 2446 08 Apr, 2018 [place] [address] 29555- 5565 07 Apr, 2018 Annual physical exam Z00.00 and High risk medication use Z79.899 [place] [address] 19281- 8003 07 Apr, 2018 PTSD (post-traumatic stress disorder) F43.10 [place] [id number] [place] [address] 48619- 2873 Apr, [place] [address] 10066- 2030 March, BMI 40.0-44.9, adult Z68.41 ; Morbid obesity due to excess calories E66.01 ; Lumbago with sciatica, right side M54.41 and Other chronic pain G89.29 [place] [id number] [place] [address] 60181- 8919 March, PTSD (post-traumatic stress disorder) F43.10 [place] [address] 02242- 6675 March, PTSD (post-traumatic stress disorder) F43.10 ; Mood disorder F39 ; Borderline personality disorder F60.3 and Cannabis use disorder, mild, abuse F12.10 [facility] [address], [place] [address] Feb, [facility] [id number] [place] [address] 72762- 2794 Feb, [facility] [address] [place] [id number] [place] [address] Feb, Breast cancer screening Z12.31 [place] [id number] [place] [address] 05714- 8524 Feb, Mood disorder F39 and PTSD (post-traumatic stress disorder) F43.10 [place] [id number] [place] [address] 95421- 8376 Feb, PTSD (post-traumatic stress disorder) F43.10 ; Mood disorder F39 ; Borderline personality disorder F60.3 and Cannabis use disorder, mild, abuse F12.10 [place] [id number] [place] [address] 19730- 3668 Feb, Schizo affective schizophrenia F25.0 ; Adjustment disorder with mixed anxiety and depressed mood F43.23 ; Night terror F51.4 ; Anxiety F41.9 and Borderline personality disorder F60.3 [place] [address], [place] [address] 265[address] Feb, [place] [id number] [place] [address] 32724- 8063 Feb, Mood disorder F39 [place] [id number] [place] [address] 28969- 5858 Feb, Annual physical exam Z00.00 ; BMI 40.0-44.9, adult Z68.41 and Nipple discharge N64.52 [place] [id number] [place] [address] 63405- 5066 Jan, Schizo affective schizophrenia F25.0 ; Adjustment disorder with mixed anxiety and depressed mood F43.23 ; Night terror F51.4 ; Anxiety F41.9 and Borderline personality disorder F60.3 [facility] [id number] [place] [address] 80806- 0273 Jan, Mood disorder F39 ; PTSD (post-traumatic stress disorder) F43.10 ; Borderline personality disorder F60.3 and High risk medication use Z79.899 [place] [address] 17177- 0001 Dec, Anxiety F41.9 and Borderline personality disorder F60.3 [place] [address] 17780- 7102 Dec, [place] [address] 42946- 2848 Dec, Anxiety F41.9 and Borderline personality disorder F60.3 [place] [address] 23562- 4434 Dec, [place] [address] 23131- 8276 Dec, [place] [id number] [place] [address] 19083- 9622 Nov, Acute non-recurrent maxillary sinusitis J01.00 ; Mood disorder F39 and Sciatica, unspecified side M54.30 [place] [id number] [place] [address] 04590- 8813 Nov, Mood disorder F39 ; PTSD (post-traumatic stress disorder) F43.10 and Borderline personality disorder F60.3 [place] [id number] [place] [address] 86475- 8850 Nov, Anxiety F41.9 and Borderline personality disorder F60.3 [place] [address] 72737- 5567 Nov, [facility] [id number] [place] [address] 75981- 8731 Nov, Anxiety F41.9 and Sciatica, unspecified side M54.30 [facility] [id number] [place] [address] 11273- 9269 Oct, Anxiety F41.9 [facility] [id number] [place] [address] 93092- 1791 Oct, Mood disorder F39 ; PTSD (post-traumatic stress disorder) F43.10 ; Borderline personality disorder F60.3 and High risk medication use Z79.899 [facility] [address] [id number] Oct, 2017 Dental caries K02.9 and Dental examination Z01.20 [facility] [id number] [place] [address] 34483- 3742 Sep, Dysuria R30.0 and Abdominal pain, right lower quadrant R10.31 [facility] [id number] [place] [address] 58720- 9108 Aug, Mood disorder F39 ; PTSD (post-traumatic stress disorder) F43.10 and Borderline personality disorder F60.3 [facility] [id number] [place] [address] 69414- 0618 Aug, [facility] [id number] [place] [address] 05254- 8527 Aug, [facility] [id number] [place] [address] 39502- 5630 Aug, Severe episode of recurrent major depressive disorder, with psychotic features F33.3 ; PTSD (post-traumatic stress disorder) F43.10 ; Adjustment disorder with mixed anxiety and depressed mood F43.23 and Borderline personality disorder F60.3 [facility] [id number] [place] [address] 92448- 4052 Aug, Mood disorder F39 ; PTSD (post-traumatic stress disorder) F43.10 and Borderline personality disorder F60.3 [facility] [address], [place] [address]- 9786 Aug, [facility] [id number] [place] [address] 56692 2546 Aug, Bipolar 1 disorder F31.9 and Schizo affective schizophrenia F25.0 [facility] [id number] [place] [address] 52794- 0246 Aug, Mood disorder F39 [facility] [id number] [place] [address] 10903 2546 Aug, Bipolar 1 disorder F31.9 and Schizo affective schizophrenia F25.0 [facility] [id number] [place] [address] 93993- 6386 Aug, Bipolar 1 disorder F31.9 and Schizo affective schizophrenia F25.0 [facility] [id number] [place] [address] 50658- 3426 Aug, [facility] [id number] [place] [address] 10731- 9765 Aug, PTSD (post-traumatic stress disorder) F43.10 and Borderline personality disorder F60.3 [facility] [id number] [place] [address] 52922- 0076 Aug, [facility] [id number] [place] [address] 61410952- 6032 Aug, Mood disorder F39 ; PTSD (post-traumatic stress disorder) F43.10 ; Borderline personality disorder F60.3 and Adjustment disorder with mixed anxiety and depressed mood F43.23 [facility] [id number] [place] [address] 59097- 6026 Jul, [facility] [id number] [place] [address] 34735290- 7786 Jul, Mood disorder F39 ; PTSD (post-traumatic stress disorder) F43.10 and Borderline personality disorder F60.3 [facility] [address], [place] [address]- 7652 Jul, [place] [id number] [place] [address] 01561- 1574 Jun, Anxiety F41.9 ; ADHD (attention deficit hyperactivity disorder) F90.9 ; Night terror F51.4 ; Bulimia F50.2 ; Severe episode of recurrent major depressive disorder, with psychotic features F33.3 and PTSD ( post-traumatic stress disorder) F43.10 [place] [address], [place] [address]- 6640 Jun, Borderline personality disorder F60.3 ; Mood disorder F39 and PTSD (post-traumatic stress disorder) F43.10 [place] [address], [place] [address]- 6370 Jun, Anxiety F41.9 [place] [id number] [place] [address] 91394- 3094 Jun, Anxiety F41.9 ; ADHD (attention deficit hyperactivity disorder) F90.9 ; Night terror F51.4 ; Bulimia F50.2 ; Severe episode of recurrent major depressive disorder, with psychotic features F33.3 and PTSD ( post-traumatic stress disorder) F43.10 [place] [address], [place] [address]- 8394 Jun, ADHD (attention deficit hyperactivity disorder) F90.9 ; Night terror F51.4 ; Bulimia F50.2 ; Anxiety F41.9 ; Severe episode of recurrent major depressive disorder, with psychotic features F33.3 and PTSD ( post-traumatic stress disorder) F43.10 [place] [address], [place] [address]- 9490 May, Anxiety F41.9 [place] [address], [place] [address]- 5713 May, PTSD (post-traumatic stress disorder) F43.10 and Borderline personality disorder F60.3 [place] [id number] [place] [address] 38821- 0298 Apr, [facility] [id number] [place] [address] [id number] March, Dental examination Z01.20 and Dental caries K02.9 [facility] [id number] [place] [address] 25160- 6808 March, Dental examination Z01.20 [facility] [id number] [place] [address] 00439- 1722 March, Tooth abscess K04.7 and Tooth pain K08.89 [place] [address] 52667- 0935 March, Borderline personality disorder F60.3 [facility] [id number] [place] [address] 33524- 1532 March, ADHD (attention deficit hyperactivity disorder) F90.9 ; Night terror F51.4 ; Bulimia F50.2 and Anxiety F41.9 [facility] [id number] [place] [address] 72946- 4657 Feb, Borderline personality disorder F60.3 ; ADHD (attention deficit hyperactivity disorder) F90.9 ; Anxiety F41.9 ; Bulimia F50.2 ; Obsessive-compulsive disorder, unspecified type F42.9 and Night terror F51.4 [facility] [id number] [place] [address] 15245- 9195 Feb, [facility] [id number] [place] [address] 87703- 9476 Feb, [facility] [id number] [place] [address] 35395- 4733 Jul, [facility] [id number] [place] [address] 10465- 0970 Jul, [facility] [id number] [place] [address] 99371- 2117 Jul, [facility] [place] [facility] [address] [id number] [place] [address]- 8276 Jul, [facility] [place] [facility] [address] [id number] [place] [address]- 5717 Jun, [facility] [place] [facility] [address] [id number] [place] [address]36 Jun, [facility] [place] [facility] [address] [id number] [place] [address]- 4203 Jun, [facility] [place] [facility] [address] [id number] [place] [address]- 4721 Jun, [facility] [place] [facility] [address] [id number] [place] [address]- 2065 Apr, [facility] [place] [facility] [address] [id number] [place] [address]- 5103 Apr, [facility] [place] [facility] [address] [id number] [place] [address]- 6904 March, [facility] [place] [facility] [address] [id number] [place] [address]- 4878 March, [facility] [place] [facility] [address] [id number] [place] [address]- 9383 Jan, [facility] [place] [facility] [address] [id number] [place] [address]- 7240 Jan, [facility] [place] [facility] [address] [id number] [place] [address]- 7092 Jan, [facility] [place] [facility] [address] [id number] [place] [address]- 6305 Jan, [facility] [place] [facility] [address] [id number] [place] 2660 Jan, [facility] [place] [facility] [address] [id number] [place] [address]- 7579 Dec, [facility] [place] [facility] [address] [id number], [place] [address]- 5236 Dec, [facility] [place] [facility] [address] [id number] [place]19 Oct, [facility] [place] [facility] [address] [id number], [place] [address]- 9905 Oct, [facility] [place] [facility] [address] [id number] [place] [address]- 4140 Oct, [facility] [place] [facility] [address] [id number] [place] [address]- 1221 Oct, [facility] [place] [facility] [address] [id number] [place] [address]- 3560 Sep, [facility] [place] [facility] [address] [id number] [place] [address]- 1729 Sep, [facility] [place] [facility] [address] [id number], [place] [address]- 2263 Sep, [facility] [place] [facility] [address] [id number], [place] [address]- 8010 Aug, [facility] [place] [facility] [address] [id number], [place] [address]- 3994 Aug, [facility] [place] [facility] [address] [facility] [id number], [place] [address]- 5938 Aug, [facility] [place] [facility] [address] [id number], [place] [address]- 1891 Aug, [facility] [place] [facility] [address] [id number], [place] [address]- 1940 Aug, [facility] [place] [facility] [address] [id number] 0420 Aug, [facility] [place] [facility] [address] [facility] [id number] 8937 Aug, [facility] [place] [facility] [address] [facility] [id number], [place] [address]- 9756 Jul, [facility] [place] [facility] [address] [id number] [place] [address]- 4935 Jun, [facility] [address] [id number] [place] [address]- 5383 Jun, [facility] [place] [facility] [address] [id number] [place] [address]- 8246 Jun, [facility] [address] [id number] [place] [address]- 2633 Jun, [facility] [address] [id number] [place] [address]- 9177 Jun, [facility] [address] [id number] [place] [address]- 8754 Jun, [facility] [address] [id number] [place] [address]- 3802 May, [facility] [address] [id number] [place] [address]- 9108 May, [facility] [address] [id number] [place] [address]- 0486 May, [facility] [place] [facility] [address] [id number] [place] [address]- 4451 May, [facility] [address] [id number] [place] [address]- 3025 March, [facility] [place] [facility] [address] [id number] [place] [address]- 6513 March, [facility] [address] [id number] [place] [address]- 0428 March, [facility] [place] [facility] [address] [id number] [place] [address]- 7937 Feb, [facility] [place] [facility] [address] [id number] [place] [address]- 6406 Feb, [facility] [place] [facility] [address] [id number] [place] [address]- 9434 Feb, [facility] [address] [id number] [place] [address]- 3979 Feb, [facility] [place] [facility] [address] [id number] [place] [address]- 3221 Jan, [facility] [place] [facility] [address] [id number] [place] [address]- 6606 Jan, [facility] [place] [facility] [address] [id number] [place] [address]- 3873 Jan, [facility] [place] [facility] [address] [id number] [place] [address]- 0695 Dec, [facility] [place] [facility] [address] [id number] [place] [address]- 5755 Dec, [facility] [place] [facility] [address] [id number] [place] [address]- 2997 Dec, [facility] [place] [facility] [address] [id number] [place] [address]- 0420 Dec, [facility] [place] [facility] [address] [id number] [place] [address]- 6698 Dec, [facility] [place] [facility] [address] [id number] [place] [address]- 4388 Nov, [facility] [place] [facility] [address] [id number] [place] [address]- 4787 Nov, [facility] [place] [facility] [address] [id number] [place] [address]- 3724 Nov, [facility] [place] [facility] [address] [id number] [place] [address]- 2963 Nov, [facility] [place] [facility] [address] [id number] [place] [address]- 8110 Oct, [facility] [place] [facility] [address] [id number] [place] [address]- 7905 Oct, [facility] [place] [facility] [address] [id number] [place] [address]- 5546 Oct, [facility] [address] [id number] [place] [address]- 7406 Oct, [facility] [place] [facility] [address] [id number] [place] [address]- 0836 Oct, [facility] [address] [id number] [place] [address]- 0776 Oct, [facility] [address] [id number] [place] [address]- 4856 Oct, [facility] [address] [id number] [place] [address]- 1067 Oct, [facility] [address] [id number] [place] [address]- 5546 Oct, [facility] [address] [id number] [place] [address]- 6656 Oct, [facility] [address] [id number] [place] [address]- 2059 Oct, [facility] [address] [id number] [place] [address]- 7640 Oct, [facility] [address] [facility] [id number] [place] [address]- 3556 Oct, [facility] [place] [facility] [address] [id number] [place] [address] 2546 Sep, [facility] [address] [id number] [place] [address]- 7874 Sep, [facility] [place] [facility] [address] [id number] [place] [address]- 6066 Sep, [facility] [place] [facility] [address] [id number] [place] [address]- 5936 Sep, [facility] [place] [facility] [address] [facility] [id number] [place] [address]- 7983 Sep, [facility] [place] [facility] [address] [id number] [place] [address]- 8917 Sep, [facility] [place] [facility] [address] [id number] [place] [address]- 7191 Sep, [facility] [place] [facility] [address] [id number] [place] [address]- 6349 Sep, [facility] [place] [facility] [address] [id number] [place] [address]- 9460 Sep, [facility] [place] [facility] [address] [id number] [place] [address] Sep, [facility] [place] [facility] [address] [id number] [place] [address] Sep, [facility] [place] [facility] [address] [facility] [id number] [place] [address] Sep, [facility] [place] [facility] [address] [id number], [place] [address] Aug, [facility] [place] [facility] [address] [facility] [id number], [place] [address] Aug, [facility] [place] [facility] [address] [facility] [id number], [place] [address] Aug, [facility] [place] [facility] [address] [facility] [id number], [place] [address] Aug, [facility] [place] [facility] [address] [id number], [place] [address] Aug, [facility] [place] [facility] [address] [id number], [place] [address] Aug, [facility] [place] [facility] [address] [id number], [place] [address] Aug, [facility] [place] [facility] [address] [facility] [id number], [place] [address] Aug, [facility] [place] [facility] [address] [id number], [place] [address] Aug, [facility] [place] [facility] [address] [id number] [place] [address] Aug, [facility] [place] [facility] [address] [id number] [place] [address] Aug, [facility] [place] [facility] [address] [id number] [place] [address] Aug, [facility] [place] [facility] [address] [id number] [place] [address] 28 Jul, 2012 [facility] [place] [facility] [address] [id number] [place] [address] 27 Jul, 2012 [facility] [place] [facility] [address] [id number] [place] [address] 21 Jul, 2012 [facility] [place] [facility] [address] [id number] [place] [address] 10 Jul, 2012 [facility] [place] [facility] [address] [id number] [place] [address] 05 Jul, 2012 [facility] [place] [facility] [address] [id number] [place] [address] Jul, [facility] [place] [facility] [address] [id number] [place] [address] Jun, [facility] [place] [facility] [address] [id number] [place] [address] Jun, [facility] [place] [facility] [address] [id number] [place] [address] Jun, [facility] [place] [facility] [address] [id number] [place] [address] May, [facility] [place] [facility] [address] [id number] [place] [address] May, [facility] [place] [facility] [address] [facility] [id number] [place] [address] May, [facility] [place] [facility] [address] [id number] [place] [address] 09 May, 2012 [facility] [place] [facility] [address] [id number] [place] [address] 06 May, 2012 [facility] [place] [facility] [address] [id number] [place] [address]- [address] 05 May, 2012 [facility] [place] [facility] [address] [id number] [place] [address] 30 Apr, 2012 [facility] [place] [facility] [address] [id number] [place] [address] 23 Feb, 2012 [facility] [place] [facility] [address] [id number] [place] [address] 18 Feb, 2012 [facility] [place] [facility] [address] [id number] [place] [address] 11 Feb, 2012 [facility] [place] [facility] [address] [id number] [place] [address] 10 Feb, 2012 [facility] [place] [facility] [address] [id number] [place] [address] 16 Jan, 2012 [facility] [place] [facility] [address] [id number] [place] [address] 12 Jan, 2012 [facility] [place] [facility] [address] [facility] [id number] [place] [address] 29 Dec, 2011 [facility] [place] [facility] [address] [id number] [place] [address] 28 Dec, 2011 [facility] [place] [facility] [address] [id number] [place] [address] Dec, [facility] [place] [facility] [address] [id number] [place] [address] 14 Dec, 2011 [facility] [place] [facility] [address] [id number] [place] [address] 14 Dec, 2011 [facility] [place] [facility] [address] [id number] [place] [address]46 13 Dec, 2011 [facility] [address] [id number] [place] [address] 44[address] 09 Dec, 2011 [facility] [address] [id number] [place] [address] 07 Dec, 2011 [facility] [address] [id number] [place] [address] Dec, [facility] [address] [id number] [place] [address] 30 Nov, 2011 [facility] [address] [id number] [place] [address] Nov, [facility] [address] [id number] [place] [address] Nov, [facility] [address] [id number] [place] [address] Nov, [facility] [address] [id number] [place] [address] Nov, [facility] [address] [id number] [place] [address] 16 Nov, 2011 [facility] [address] [id number] [place] [address] Nov, [facility] [address] [id number] [place] [address] Nov, [facility] [address] [id number] [place] [address] 47[address] Nov, [facility] [address] [id number] [place] [address] Oct, [facility] [place] [facility] [address] [id number] [place] [address] 1166 Oct, [facility] [address] [facility] [id number] [place] [address] Oct, [facility] [place] [facility] [address] [id number] [place] [address] 05 Oct, 2011 [facility] [place] [facility] [address] [id number] [place] [address] 05 Oct, 2011 [facility] [place] [facility] [address] [id number] [place] [address] 2546 Oct, [facility] [place] [facility] [address] [id number] [place] [address] Sep, [facility] [place] [facility] [address] [id number] [place] [address] Aug, [facility] [place] [facility] [address] [id number] [place] [address] Jul, [facility] [place] [facility] [address] [id number] [place] [address] Nov, [facility] [place] [facility] [address] [id number] [place] [address] Nov, [facility] [place] [facility] [address] [id number] [place] [address]32 Oct, [facility] [place] [facility] [address] [id number] [place] [address] 235[address] Sep, [facility] [place] [facility] [address] [id number] [place] [address] Sep, [facility] [place] [facility] [address] [id number] [place] [address]85 18 Aug, 2010 [facility] [place] [facility] [address] [id number] [place] [address] 2719 14 Aug, 2010 [facility] [place] [facility] [address] [id number] [place] [address] 9367 14 Aug, 2010 [facility] [place] [facility] [address] [id number] [place] [address] 13 Feb, 2010 [facility] [place] [facility] [address] [id number] [place] [address] Dec, [facility] [address] [id number] [address] Oct, [facility] [id number] [place] [address] Oct, [facility] [id number], [place] [address] Oct, [facility] [id number], [place] [address] Sep, [facility] [id number], [place] [address] Sep, [facility] [id number], [place] [address] Sep, [facility] [id number], [place] [address] Aug, [facility] [address] [id number], [place] [address] Aug, IMMUNIZATIONS No Known Immunizations SOCIAL HISTORY Never Assessed REASON FOR VISIT Repository Medication PLAN OF CARE VITAL SIGNS MEDICATIONS Medication Instructions Dosage Frequency Start Date End Date Duration Status [place] Carbonate 300 MG Orally twice a day 1 capsule 12h 90 days Active RESULTS No Results PROCEDURES [...] mental health issues x2 Ward Unit in [place] 2016 & 02/2017 Hospitalization History Surgery(s)/Childbirth(s)
--- OUTSIDE RECORDS SUMMARY | 2018-08-03 08:37 | XMS REPORT ---
Author Author YESENIA DIAZ Organization [facility] Address [address] [address] Care Team Providers Care Elevator Examiner And Adjuster Name Role Phone YESENIA DIAZ Unavailable PROBLEMS Type Condition ICD9-CM Code [id number] Code Onset Dates Condition Status SNOMED Code Problem Mood disorder F39 Active 25645307 Problem Schizo affective schizophrenia F25.0 Active 121547855 Problem Adjustment disorder with mixed anxiety and depressed mood F43.23 Active 97821831 Problem Other chronic pain G89.29 Active 29735239 Problem Lumbago with sciatica, right side M54.41 Active 563858580 Problem Sciatica, unspecified side M54.30 Active 57897688 Problem Bipolar 1 disorder F31.9 Active 684250560 Problem Morbid obesity due to excess calories E66.01 Active 048548480 Problem Cannabis use disorder, mild, abuse F12.10 Active 41638136 Problem Night terror F51.4 Active 40981798 Problem Anxiety F41.9 Active 30185201 Problem PTSD (post-traumatic stress disorder) F43.10 Active 82256504 Problem Borderline personality disorder F60.3 Active 32020716 Problem Severe episode of recurrent major depressive disorder, with psychotic features F33.3 Active 26419873 ALLERGIES Substance Reaction Event Type Date Status Pseudoephedrine HCl ER unknown Drug Allergy Feb, Active Phenytoin rash Drug Allergy Feb, Active Penicillamine anaphylaxis Drug Allergy Feb, Active Cephalexin anaphylaxis Drug Allergy Feb, Active Albuterol unknown Drug Allergy Feb, Active ENCOUNTERS Encounter Location Date Diagnosis [facility] [place] [address] [facility] [id number] [address] Jun, [facility] [place] [address] [facility] [id number] [place] [address] May, [facility] [place] [address] [place] [place] [id number] [place] [address] 15266- 0343 11 May, 2018 PTSD (post-traumatic stress disorder) F43.10 ; Mood disorder F39 ; Borderline personality disorder F60.3 and Cannabis use disorder, mild, abuse F12.10 [place] [address] [place] [id number] [place] [address] 66913- 0533 10 May, 2018 BMI 40.0-44.9, adult Z68.41 [place] [address] [address]- 7489 18 Apr, 2018 BMI 40.0-44.9, adult Z68.41 [place] [address] 62770- 3292 14 Apr, 2018 Acute non-recurrent maxillary sinusitis J01.00 [place] [address] 6[address]36- 5174 11 Apr, 2018 PTSD (post-traumatic stress disorder) F43.10 ; Mood disorder F39 ; Borderline personality disorder F60.3 ; Cannabis use disorder, mild, abuse F12.10 and Other jail (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 [place] [address] [address]- 37[address] Apr, [place] [address] 04996- 2115 07 Apr, 2018 Annual physical exam Z00.00 and High risk medication use Z79.899 [place] [address] [id number] [place] [address] 69295- 4029 Apr, PTSD (post-traumatic stress disorder) F43.10 [place] [address] [id number] [place] [address] 38712- 2374 Apr, [place] [address] 8[address]14- 4027 March, BMI 40.0-44.9, adult Z68.41 ; Morbid obesity due to excess calories E66.01 ; Lumbago with sciatica, right side M54.41 and Other chronic pain G89.29 [facility] [place] [address] [place] [address] 09887- 3379 March, PTSD (post-traumatic stress disorder) F43.10 [facility], [place] [address] [place] [address] 98442- 4989 March, PTSD (post-traumatic stress disorder) F43.10 ; Mood disorder F39 ; Borderline personality disorder F60.3 and Cannabis use disorder, mild, abuse F12.10 [facility] [place] [address] [place] [address] 56922- 7620 Feb, [place] [address] [id number] [place] [address] 29615- 4103 Feb, [facility] [address] [place] [id number] [place] [address] Feb, Breast cancer screening Z12.31 [place] [address] [id number] [place] [address] 58979- 1744 Feb, Mood disorder F39 and PTSD (post-traumatic stress disorder) F43.10 [place] [address] [id number] [place] [address] 62060- 1082 Feb, PTSD (post-traumatic stress disorder) F43.10 ; Mood disorder F39 ; Borderline personality disorder F60.3 and Cannabis use disorder, mild, abuse F12.10 [place] [address] [place] [address] 77035- 4096 Feb, Schizo affective schizophrenia F25.0 ; Adjustment disorder with mixed anxiety and depressed mood F43.23 ; Night terror F51.4 ; Anxiety F41.9 and Borderline personality disorder F60.3 [place] [address] [id number] [place] [address] 53786- 5801 Feb, [place] [address] [id number] [place] [address] 70670- 5163 Feb, Mood disorder F39 [facility], [place] [address] [address] Feb, Annual physical exam Z00.00 ; BMI 40.0-44.9, adult Z68.41 and Nipple discharge N64.52 [place] [address] 05671- 8299 Jan, Schizo affective schizophrenia F25.0 ; Adjustment disorder with mixed anxiety and depressed mood F43.23 ; Night terror F51.4 ; Anxiety F41.9 and Borderline personality disorder F60.3 [place] [address] 60742- 9484 Jan, Mood disorder F39 ; PTSD (post-traumatic stress disorder) F43.10 ; Borderline personality disorder F60.3 and High risk medication use Z79.899 [place] [address] 23693- 0222 Dec, Anxiety F41.9 and Borderline personality disorder F60.3 [place] [address] 59164- 2435 Dec, [place] [address] 58712- 5367 Dec, Anxiety F41.9 and Borderline personality disorder F60.3 [place] [address] 46484- 0771 Dec, [place] [address] 15103- 3706 Dec, [place] [address] 63851- 4619 Nov, Acute non-recurrent maxillary sinusitis J01.00 ; Mood disorder F39 and Sciatica, unspecified side M54.30 [place] [address] [id number] [place] [address] 34057- 9797 Nov, Mood disorder F39 ; PTSD (post-traumatic stress disorder) F43.10 and Borderline personality disorder F60.3 [place] [address] [id number] [place] [address] 55766- 0962 Nov, Anxiety F41.9 and Borderline personality disorder F60.3 [facility], [place] [id number] [place] [address] 10255- 7328 Nov, [place] [address] [id number] [place] [address] 93272- 7259 Nov, Anxiety F41.9 and Sciatica, unspecified side M54.30 [place] [address] [id number] [place] [address] 88476- 4340 Oct, Anxiety F41.9 [place] [address] 97279- 5313 Oct, Mood disorder F39 ; PTSD (post-traumatic stress disorder) F43.10 ; Borderline personality disorder F60.3 and High risk medication use Z79.899 [facility] [id number] [place] [id number] Oct, Dental caries K02.9 and Dental examination Z01.20 [place] [address] [address] [id number] [place] [address] 29117- 4960 Sep, Dysuria R30.0 and Abdominal pain, right lower quadrant R10.31 [place] [address] [id number] [place] [address] 83438- 1743 Aug, Mood disorder F39 ; PTSD (post-traumatic stress disorder) F43.10 and Borderline personality disorder F60.3 [place] [address] [place] [address] 27756- 9973 Aug, [place] [address] 80481- 1754 Aug, [facility] [place] [id number] [place] [address] 81362- 8588 Aug, Severe episode of recurrent major depressive disorder, with psychotic features F33.3 ; PTSD (post-traumatic stress disorder) F43.10 ; Adjustment disorder with mixed anxiety and depressed mood F43.23 and Borderline personality disorder F60.3 [facility], [place] [id number] [place] [address] 47486- 2916 Aug, Mood disorder F39 ; PTSD (post-traumatic stress disorder) F43.10 and Borderline personality disorder F60.3 [facility] [place] [id number] [place] [address] 56042- 0346 Aug, [facility] [place] [id number] [place] [address] 13481- 0726 Aug, Bipolar 1 disorder F31.9 and Schizo affective schizophrenia F25.0 [facility], [place] [id number] [place] [address] 86467- 0046 Aug, Mood disorder F39 [facility], [place] [id number] [place] [address] 02143- 3316 Aug, Bipolar 1 disorder F31.9 and Schizo affective schizophrenia F25.0 [facility] [place] [id number] [place] [address] 41411- 3066 Aug, Bipolar 1 disorder F31.9 and Schizo affective schizophrenia F25.0 [facility] [place] [id number] [place] [address] 62164- 0286 Aug, [facility], [place] [id number] [place] [address] 01187- 1014 Aug, PTSD (post-traumatic stress disorder) F43.10 and Borderline personality disorder F60.3 [facility], [place] [address] [place] [address] 73135 2546 Aug, [facility], [place] [address] [id number] [place] [address] 57241- 5836 Aug, Mood disorder F39 ; PTSD (post-traumatic stress disorder) F43.10 ; Borderline personality disorder F60.3 and Adjustment disorder with mixed anxiety and depressed mood F43.23 [facility] [place] [address] [place] [address] 80060- 7554 Jul, [place] [id number] [address]- 7511 Jul, Mood disorder F39 ; PTSD (post-traumatic stress disorder) F43.10 and Borderline personality disorder F60.3 [facility] [place] [address] [address]- 8837 Jul, [place] [address] [id number] [place] [address] 08197- 1554 Jun, Anxiety F41.9 ; ADHD (attention deficit hyperactivity disorder) F90.9 ; Night terror F51.4 ; Bulimia F50.2 ; Severe episode of recurrent major depressive disorder, with psychotic features F33.3 and PTSD ( post-traumatic stress disorder) F43.10 [place] [address] [place] [address] 43575- 2103 Jun, Borderline personality disorder F60.3 ; Mood disorder F39 and PTSD (post-traumatic stress disorder) F43.10 [place] [address] [place] [address] 76838- 4954 Jun, Anxiety F41.9 [place] [address] [id number] [place] [address] 34281- 5735 Jun, Anxiety F41.9 ; ADHD (attention deficit hyperactivity disorder) F90.9 ; Night terror F51.4 ; Bulimia F50.2 ; Severe episode of recurrent major depressive disorder, with psychotic features F33.3 and PTSD ( post-traumatic stress disorder) F43.10 [place] [address] [place] [address] 10618- 3718 Jun, ADHD (attention deficit hyperactivity disorder) F90.9 ; Night terror F51.4 ; Bulimia F50.2 ; Anxiety F41.9 ; Severe episode of recurrent major depressive disorder, with psychotic features F33.3 and PTSD ( post-traumatic stress disorder) F43.10 [place] [address] [place] [address] 42238- 1277 May, Anxiety F41.9 [facility] [place] [address] [place] [address] 09833- 3426 May, PTSD (post-traumatic stress disorder) F43.10 and Borderline personality disorder F60.3 [facility] [place] [address] [place] [address] 09474- 8500 Apr, [facility] [id number] [place] [address] [id number] March, Dental examination Z01.20 and Dental caries K02.9 [facility], [place] [address] [id number] [place] [address] 64821- 2745 March, Dental examination Z01.20 [facility] [place] [address] [id number] [place] [address] 68359- 5213 March, Tooth abscess K04.7 and Tooth pain K08.89 [facility] [place] [address] [id number] [place] [address] 17197- 5266 March, Borderline personality disorder F60.3 [facility] [place] [id number] [place] [address] 10810- 8913 March, ADHD (attention deficit hyperactivity disorder) F90.9 ; Night terror F51.4 ; Bulimia F50.2 and Anxiety F41.9 [facility] [place] [address] [place] [address] 71257- 2103 Feb, Borderline personality disorder F60.3 ; ADHD (attention deficit hyperactivity disorder) F90.9 ; Anxiety F41.9 ; Bulimia F50.2 ; Obsessive-compulsive disorder, unspecified type F42.9 and Night terror F51.4 [facility] [place] [id number] [place] [address] 30888- 8131 Feb, [facility] [place] [id number] [place] [address] 50121- 2853 Feb, [facility] [place] [address] [id number] [place] [address] 43083- 8288 Jul, [facility] [place] [facility] [address] [id number] [place] [address]- 3972 Jul, [facility] [place] [facility] [address] [id number] [place] [address]- 0721 Jul, [facility] [place] [facility] [address] [id number] [place] [address]- 5775 Jul, [facility] [place] [facility] [address] [id number] [place] [address]- 5120 Jun, [facility] [place] [facility] [address] [id number] [place] [address]- 8035 Jun, [facility] [place] [facility] [address] [id number] [place] [address]- 4090 Jun, [facility] [place] [facility] [address] [id number] [place] [address]- 4633 Jun, [facility] [place] [facility] [address] [id number] [place] [address]- 9935 Apr, [facility] [place] [facility] [address] [id number] [place] [address]- 9787 Apr, [facility] [place] [facility] [address] [id number] [place] [address]- 0856 March, [facility] [place] [facility] [address] [id number] [place] [address]- 7519 March, [facility] [place] [facility] [address] [id number] [place] [address]- 3950 Jan, [facility] [place] [facility] [address] [id number] [place] [address]- 8737 Jan, [facility] [place] [facility] [address] [id number] [place] [address]- 2795 Jan, [facility] [place] [facility] [address] [id number] [place] 9825 Jan, [facility] [place] [facility] [address] [id number] [address]- 7543 Jan, [facility] [address] [id number] [place] [address]- 5360 Dec, [facility] [place] [facility] [address] [id number] [place] [address]- 3639 Dec, [facility] [address] [facility] [id number] [place] [address]- 4286 Oct, [facility] [place] [facility] [address] [id number] [place] 2163 Oct, [facility] [address] [id number] [place] [address]- 6801 Oct, [facility] [place] [facility] [address] [facility] [id number] [place] [address]- 7634 Oct, [facility] [address] [facility] [id number] [place] [address]- 3051 Sep, [facility] [place] [facility] [address] [facility] [id number] [place] [address]- 7162 Sep, [facility] [place] [facility] [address] [facility] [id number] [place] [address]- 1668 Sep, [facility] [place] [facility] [address] [facility] [id number] [place] [address]- 1289 Aug, [facility] [place] [facility] [address] [id number] [place] [address]- 2632 Aug, [facility] [place] [facility] [address] [id number] [place] [address]- 9901 Aug, [facility] [place] [facility] [address] [id number] [place] 1815 Aug, [facility] [place] [facility] [address] [facility] [id number] [place] 3902 Aug, [facility] [place] [facility] [address] [facility] [id number] [place] 1160 Aug, [facility] [place] [facility] [address] [id number] [place] [address]- 4603 Aug, [facility] [address] [id number] [place] [address]- 8447 Jul, [facility] [place] [facility] [address] [id number] [place] [address]- 8547 Jun, [facility] [place] [facility] [address] [id number] [place] [address]- 6106 Jun, [facility] [place] [facility] [address] [id number] [place] [address]- 0490 Jun, [facility] [place] [facility] [address] [id number] [place] [address]- 4694 Jun, [facility] [place] [facility] [address] [id number] [place] [address]- 0054 Jun, [facility] [place] [facility] [address] [id number] [place] [address]- 4493 Jun, [facility] [place] [facility] [address] [id number] [place] [address]- 0932 May, [facility] [place] [facility] [address] [id number] [place] [address]- 3829 May, [facility] [place] [facility] [address] [id number] [place] [address]- 2235 May, [facility] [place] [facility] [address] [id number] [place] [address]- 9293 May, [facility] [place] [facility] [address] [id number] [place] [address]- 0254 March, [facility] [place] [facility] [address] [id number] [place] [address]- 9772 March, [facility] [place] [facility] [address] [id number] [place] [address]- 3109 March, [facility] [place] [facility] [address] [id number] [place] [address]- 0165 30 Feb, 2013 [facility] [address] [id number] [place] [address]- 3594 29 Feb, 2013 [facility] [place] [facility] [address] [id number] [place] [address]- 5960 10 Feb, 2013 [facility] [place] [facility] [address] [facility] [id number] [place] [address]- 7639 04 Feb, 2013 [facility] [place] [facility] [address] [id number] [place] [address]- 7782 27 Jan, 2013 [facility] [place] [facility] [address] [id number] [place] [address]- 6536 Jan, [facility] [place] [facility] [address] [id number] [place] [address]- 8452 Jan, [facility] [address] [id number] [place] [address]- 8645 27 Dec, 2012 [facility] [place] [facility] [address] [id number] [place] [address]- 5063 14 Dec, 2012 [facility] [place] [facility] [address] [id number] [place] [address]- 6121 Dec, [facility] [place] [facility] [address] [facility] [id number] [place] [address]- 6009 05 Dec, 2012 [facility] [place] [facility] [address] [id number] [place] [address]- 7970 04 Dec, 2012 [facility] [place] [facility] [address] [id number] [place] [address]- 4275 Nov, [facility] [place] [facility] [address] [id number] [place] [address]- 1234 23 Nov, 2012 [facility] [place] [facility] [address] [id number] [place] [address]- 4070 19 Nov, 2012 [facility] [place] [facility] [address] [facility] [id number] [place] [address]- 9307 14 Nov, 2012 [facility] [place] [facility] [address] [id number] [place] [address]- 0436 Oct, [facility] [place] [facility] [address] [id number] [place] [address]- 0286 Oct, [facility] [place] [facility] [address] [id number] [place] [address]- 7816 Oct, [facility] [place] [facility] [address] [id number] [place] [address]- 4716 Oct, [facility] [place] [facility] [address] [id number] [place] [address]- 9506 Oct, [facility] [place] [facility] [address] [id number] [place] [address]- 2576 Oct, [facility] [place] [facility] [address] [id number] [place] [address]- 9936 Oct, [facility] [place] [facility] [address] [id number] [place] [address]- 1768 Oct, [facility] [place] [facility] [address] [id number] [place] [address]- 2146 Oct, [facility] [place] [facility] [address] [id number] [place] [address]- 4156 Oct, [facility] [place] [facility] [address] [id number] [place] 3836 Oct, [facility] [place] [facility] [address] [id number] [place] [address]- 2926 Oct, [facility] [place] [facility] [address] [id number] [place] [address] Oct, [facility] [place] [facility] [address] [id number] [place] [address] Sep, [facility] [place] [facility] [address] [id number] [place] [address] Sep, [facility] [place] [facility] [address] [id number] [place] [address] Sep, [facility] [place] [facility] [address] [id number] [place] [address] Sep, [facility] [place] [facility] [address] [id number] [place] [address] Sep, [facility] [place] [facility] [address] [id number] [place] [address] Sep, [facility] [place] [facility] [address] [id number] [place] [address] Sep, [facility] [place] [facility] [address] [id number] [place] [address] Sep, [facility] [place] [facility] [address] [id number] [place] [address] Sep, [facility] [place] [facility] [address] [facility] [id number] [place] [address] Sep, [facility] [place] [facility] [address] [id number] [place] [address] Sep, [facility] [place] [facility] [address] [id number] [place] [address] Sep, [facility] [place] [facility] [address] [facility] [id number] [place] [address] Aug, [facility] [place] [facility] [address] [id number] [place] [address] 31 Aug, 2012 [facility] [place] [facility] [address] [id number] [place] [address] Aug, [facility] [place] [facility] [address] [id number] [place] [address] Aug, [facility] [place] [facility] [address] [id number] [place] [address] Aug, [facility] [place] [facility] [address] [facility] [id number] [place] [address] Aug, [facility] [place] [facility] [address] [id number] [place] [address] Aug, [facility] [place] [facility] [address] [id number] [place] [address] Aug, [facility] [place] [facility] [address] [id number] [place] [address] Aug, [facility] [place] [facility] [address] [id number] [place] [address] Aug, [facility] [place] [facility] [address] [id number] [place] [address] Aug, [facility] [place] [facility] [address] [id number] [place] [address] Aug, [facility] [place] [facility] [address] [id number] [place] [address] 28 Jul, 2012 [facility] [place] [facility] [address] [id number] [place] [address] 27 Jul, 2012 [facility] [place] [facility] [address] [id number] [place] [address] 21 Jul, 2012 [facility] [place] [facility] [address] [id number] [place] [address] 10 Jul, 2012 [facility] [place] [facility] [address] [id number] [place] [address] 05 Jul, 2012 [facility] [place] [facility] [address] [id number] [place] [address] 04 Jul, 2012 [facility] [place] [facility] [address] [id number] [place] [address] Jun, [facility] [place] [facility] [address] [id number] [place] [address] Jun, [facility] [place] [facility] [address] [id number] [place] [address] Jun, [facility] [place] [facility] [address] [id number] [place] [address] May, [facility] [place] [facility] [address] [id number] [place] [address] 25 May, 2012 [facility] [place] [facility] [address] [id number] [place] [address] 14 May, 2012 [facility] [place] [facility] [address] [id number] [place] [address] May, [facility] [place] [facility] [address] [id number] [place] [address] 06 May, 2012 [facility] [place] [facility] [address] [id number] [place] [address] 05 May, 2012 [facility] [place] [facility] [address] [id number] [place] [address] 30 Apr, 2012 [facility] [place] [facility] [address] [id number] [place] [address] 23 Feb, 2012 [facility] [place] [facility] [address] [id number] [place] [address] 18 Feb, 2012 [facility] [place] [facility] [address] [id number] [place] [address] 11 Feb, 2012 [facility] [place] [facility] [address] [id number] [place] [address] 10 Feb, 2012 [facility] [place] [facility] [address] [id number] [place] [address] 16 Jan, 2012 [facility] [place] [facility] [address] [id number] [place] [address] Jan, [facility] [place] [facility] [address] [id number] [place] [address] 29 Dec, 2011 [facility] [place] [facility] [address] [id number] [place] [address] 28 Dec, 2011 [facility] [place] [facility] [address] [id number] [place] [address] Dec, [facility] [place] [facility] [address] [id number] [place] [address] 16[address] 14 Dec, 2011 [facility] [address] [id number] [place] [address] 3056 14 Dec, 2011 [facility] [place] [facility] [address] [id number] [place] [address]046 13 Dec, 2011 [facility] [place] [facility] [address] [id number] [place] [address] 1736 09 Dec, 2011 [facility] [place] [facility] [address] [id number] [place] [address] 07 Dec, 2011 [facility] [place] [facility] [address] [id number] [place] [address] 02 Dec, 2011 [facility] [place] [facility] [address] [id number] [place] [address] 30 Nov, 2011 [facility] [address] [id number] [place] [address] Nov, [facility] [place] [facility] [address] [id number] [place] [address] 24 Nov, 2011 [facility] [place] [facility] [address] [id number] [place] [address] Nov, [facility] [address] [id number] [place] [address] 17 Nov, 2011 [facility] [place] [facility] [address] [id number] [place] [address] 39[address] 16 Nov, 2011 [facility] [place] [facility] [address] [id number] [place] [address] Nov, [facility] [place] [facility] [address] [id number] [place] [address] Nov, [facility] [place] [facility] [address] [id number] [place] [address] Nov, [facility] [place] [facility] [address] [id number] [place] [address] Oct, [facility] [place] [facility] [address] [id number] [place] [address] 9549 Oct, [facility] [place] [facility] [address] [id number] [place] [address]687 Oct, [facility] [place] [facility] [address] [id number] [place] [address] Oct, [facility] [place] [facility] [id number] [place] [address], [place] [address] Oct, [facility] [place] [facility] [address] [id number] [place] [address] 2337 Oct, [facility] [place] [facility] [address] [id number] [place] [address] 58[address] Sep, [facility] [address] [id number] [place] [address]293 Aug, [facility] [address] [id number] [place] [address] Jul, [facility] [place] [facility] [address] [id number] [place] [address] Nov, [facility] [address] [id number] [place] [address] Nov, [facility] [place] [facility] [address] [id number] [place] [address] Oct, [facility] [place] [facility] [address] [id number] [place] [address] Sep, [facility] [place] [facility] [address] [id number] [place] [address] Sep, [facility] [place] [facility] [address] [id number] [place] [address] 18 Aug, 2010 [facility] [place] [facility] [address] [id number] [place] [address]- 1771 14 Aug, 2010 [facility] [place] [facility] [address] [id number] [place] [address] 14 Aug, 2010 [facility] [place] [id number] [place] [address] Feb, [facility] [place] [id number] [address] Dec, [facility] [place] [id number] [address] Oct, [facility] [place] [id number] [place] [address] 2546 Oct, [facility] [place] [id number] [place] [address] Oct, [facility] [place] [id number] [place] [address] Sep, [facility] [place] [id number] [place] [address] Sep, [facility] [place] [id number] [address] Sep, [facility] [place] [id number] [address] Aug, [facility] [place] [address] [address] Aug, IMMUNIZATIONS No Known Immunizations SOCIAL HISTORY Never Assessed REASON FOR VISIT Annual physical (female), Has been having 2 periods per months for the past couple of months. States they are very painful. Also states she is having green discharge from left nipple. -GRIFFIN Matos PLAN OF CARE Activity Details Follow Up 4 Weeks Reason:Estab care PCP Pending Test PAP REFLEX TO HPV IF ASCUS VITAL SIGNS Height 63 in 2018-02-14 Weight 249 lbs 2018-02-14 Temperature 98.4 degrees Fahrenheit 2018-02-14 Heart Rate 96 bpm 2018-02-14 Respiratory Rate 20 2018-02-14 BMI 44.10 kg/m2 2018-02-14 Blood pressure systolic 110 mmHg 2018-02-14 Blood pressure diastolic 70 mmHg 2018-02-14 MEDICATIONS Medication Instructions Dosage Frequency Start Date End Date Duration Status Gabapentin 800 MG Orally 3 times a day 1 tablet 8h 90 days Active [place] Carbonate 300 MG Orally twice a day 1 capsule 12h 30 days Active Seroquel 100 MG Orally Three times a day 1 tablet 8h 27 Oct, 2017 30 days Active Voltaren 1 % Transdermal 2 times a day apply 4gm as needed to lower back as needed 12h Nov, 30 days Active Quetiapine Fumarate 300 MG Orally Once a day at night 1 tablet 30 days Active Desvenlafaxine Succinate ER 100 MG Orally in morning 1 tablet 30 days Active RESULTS No Results PROCEDURES Procedure Date Ordered Result Body Site TRICHOMONAS ASSAY W/OPTIC February 14, 2018 No Charge February 14, 2018 Bacterial Vaginosis In House February 14, 2018 SPECIMEN HANDLING February 14, 2018 CULTURE, BACTERIA, OTHER February 14, 2018 INSTRUCTIONS MEDICATIONS ADMINISTERED No Known [...] mental health issues x2 Ward Unit in [place] 2016 & 02/2017 Hospitalization History Surgery(s)/Childbirth(s)
--- OUTSIDE RECORDS SUMMARY | 2018-08-03 08:38 | XMS REPORT ---
Author Author ESPERANZA LUCI Organization [facility] Address [address] [place] [address] Care Team Providers Care Hose Tester Name Role Phone GARIMALUCERO REEDA Unavailable PROBLEMS Type Condition ICD9-CM Code ZBL39-YF Code Onset Dates Condition Status SNOMED Code Problem Mood disorder F39 Active 93923666 Problem Schizo affective schizophrenia F25.0 Active 992661075 Problem Adjustment disorder with mixed anxiety and depressed mood F43.23 Active 18047423 Problem Other chronic pain G89.29 Active 72819102 Problem Lumbago with sciatica, right side M54.41 Active 861209588 Problem Sciatica, unspecified side M54.30 Active 73169949 Problem Bipolar 1 disorder F31.9 Active 476355239 Problem Morbid obesity due to excess calories E66.01 Active 853085608 Problem Cannabis use disorder, mild, abuse F12.10 Active 67897182 Problem Night terror F51.4 Active 63431616 Problem Anxiety F41.9 Active 33046224 Problem PTSD (post-traumatic stress disorder) F43.10 Active 96411116 Problem Borderline personality disorder F60.3 Active 97003804 Problem Severe episode of recurrent major depressive disorder, with psychotic features F33.3 Active 86429771 ALLERGIES No Information ENCOUNTERS Encounter Location Date Diagnosis [facility] [id number] [address] Jun, [facility] [id number] [address] May, [facility] [id number] [place] [address] 23633- 3372 May, PTSD (post-traumatic stress disorder) F43.10 ; Mood disorder F39 ; Borderline personality disorder F60.3 and Cannabis use disorder, mild, abuse F12.10 [facility] [id number] [place] [address] 19976- 1341 May, [place] [id number] [place] [address] 87772- 6998 18 Apr, 2018 BMI 40.0-44.9, adult Z68.41 [place] [id number] [place] [address] 75168- 5767 14 Apr, 2018 Acute non-recurrent maxillary sinusitis J01.00 [place] [address] [address]- 0141 11 Apr, 2018 PTSD (post-traumatic stress disorder) F43.10 ; Mood disorder F39 ; Borderline personality disorder F60.3 ; Cannabis use disorder, mild, abuse F12.10 and Other retirement (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 [place] [id number] [place] [address] 29366- 3445 08 Apr, 2018 [place] [address] [address]1352- 3578 07 Apr, 2018 Annual physical exam Z00.00 and High risk medication use Z79.899 [place] [address] 00927- 4661 07 Apr, 2018 PTSD (post-traumatic stress disorder) F43.10 [place] [id number] [place] [address] 74405- 7260 Apr, [place] [id number] [place] [address] 00605- 9548 March, BMI 40.0-44.9, adult Z68.41 ; Morbid obesity due to excess calories E66.01 ; Lumbago with sciatica, right side M54.41 and Other chronic pain G89.29 [place] [id number] [place] [address] 26282- 7278 March, PTSD (post-traumatic stress disorder) F43.10 [place] [id number] [place] [address] 89039- 8753 March, PTSD (post-traumatic stress disorder) F43.10 ; Mood disorder F39 ; Borderline personality disorder F60.3 and Cannabis use disorder, mild, abuse F12.10 [facility] [address], [place] [address] Feb, [facility] [address], [place] [address] Feb, [facility] [address] [place] [id number] [place] [address] Feb, Breast cancer screening Z12.31 [place] [id number] [place] [address] 01376- 2673 Feb, Mood disorder F39 and PTSD (post-traumatic stress disorder) F43.10 [place] [address], [place] [address] 8472 Feb, PTSD (post-traumatic stress disorder) F43.10 ; Mood disorder F39 ; Borderline personality disorder F60.3 and Cannabis use disorder, mild, abuse F12.10 [facility] [id number] [place] [address] 27279- 9602 Feb, Schizo affective schizophrenia F25.0 ; Adjustment disorder with mixed anxiety and depressed mood F43.23 ; Night terror F51.4 ; Anxiety F41.9 and Borderline personality disorder F60.3 [place] [address], [place] [address] Feb, [facility] [address], [place] [address] 6[address] Feb, Mood disorder F39 [facility] [id number] [place] [address] 17293- 9511 Feb, Annual physical exam Z00.00 ; BMI 40.0-44.9, adult Z68.41 and Nipple discharge N64.52 [facility] [address], [place] [address] 8[address] 08 Mar, 2018 Schizo affective schizophrenia F25.0 ; Adjustment disorder with mixed anxiety and depressed mood F43.23 ; Night terror F51.4 ; Anxiety F41.9 and Borderline personality disorder F60.3 [place] [id number] [place] [address] Jan, Mood disorder F39 ; PTSD (post-traumatic stress disorder) F43.10 ; Borderline personality disorder F60.3 and High risk medication use Z79.899 [place] [address] 6[address]75- 9295 Dec, Anxiety F41.9 and Borderline personality disorder F60.3 [place] [address] 418229- 9811 Dec, [place] [address] 29409- 5878 Dec, Anxiety F41.9 and Borderline personality disorder F60.3 [place] [address] 29439- 4921 Dec, [place] [address] 05199- 0130 Dec, [place] [id number] [place] [address] 52621- 2774 Nov, Acute non-recurrent maxillary sinusitis J01.00 ; Mood disorder F39 and Sciatica, unspecified side M54.30 [place] [id number] [place] [address] 87011- 5344 Nov, Mood disorder F39 ; PTSD (post-traumatic stress disorder) F43.10 and Borderline personality disorder F60.3 [place] [address]- 9218 Nov, Anxiety F41.9 and Borderline personality disorder F60.3 [place] [id number] [place] [address] 60543- 6065 Nov, [place] [id number] [place] [address] 55994- 7949 Nov, Anxiety F41.9 and Sciatica, unspecified side M54.30 [place] [id number] [place] [address] 18267- 1731 Oct, Anxiety F41.9 [place] [id number] [place] [address] 10706- 0476 Oct, Mood disorder F39 ; PTSD (post-traumatic stress disorder) F43.10 ; Borderline personality disorder F60.3 and High risk medication use Z79.899 [facility] [address] [id number] Oct, 2017 Dental caries K02.9 and Dental examination Z01.20 [place] [id number] [place] [address] 83827- 9495 13 Sep, 2017 Dysuria R30.0 and Abdominal pain, right lower quadrant R10.31 [place] [id number] [place] [address] 63797- 4411 Aug, Mood disorder F39 ; PTSD (post-traumatic stress disorder) F43.10 and Borderline personality disorder F60.3 [place] [id number] [place] [address] 47940- 5458 Aug, [place] [id number] [place] [address] 16978- 0317 Aug, [place] [id number] [place] [address] 45766- 8966 Aug, Severe episode of recurrent major depressive disorder, with psychotic features F33.3 ; PTSD (post-traumatic stress disorder) F43.10 ; Adjustment disorder with mixed anxiety and depressed mood F43.23 and Borderline personality disorder F60.3 [place] [id number] [place] [address] 10566- 3448 Aug, Mood disorder F39 ; PTSD (post-traumatic stress disorder) F43.10 and Borderline personality disorder F60.3 [place] [address], [place] [address] 9220 Aug, [facility] [id number] [place] [address] 76624- 1480 Aug, Bipolar 1 disorder F31.9 and Schizo affective schizophrenia F25.0 [facility] [address], [place] [address]- 9392 Aug, Mood disorder F39 [facility] [id number] [place] [address] 38087- 3403 Aug, Bipolar 1 disorder F31.9 and Schizo affective schizophrenia F25.0 [facility] [id number] [place] [address] 88572- 6190 Aug, Bipolar 1 disorder F31.9 and Schizo affective schizophrenia F25.0 [facility] [id number] [place] [address] 54450- 1976 Aug, [facility] [id number] [place] [address] 18026- 8061 Aug, PTSD (post-traumatic stress disorder) F43.10 and Borderline personality disorder F60.3 [facility] [address] [place] [address] 39863- 0363 Aug, [facility] [address], [place] [address]- 2830 Aug, Mood disorder F39 ; PTSD (post-traumatic stress disorder) F43.10 ; Borderline personality disorder F60.3 and Adjustment disorder with mixed anxiety and depressed mood F43.23 [facility] [address], [place] [address]- 8568 Jul, [facility] [id number] [place] [address] 34576- 3326 Jul, Mood disorder F39 ; PTSD (post-traumatic stress disorder) F43.10 and Borderline personality disorder F60.3 [facility] [address] [place] [address] 98099- 1186 Jul, [place] [address], [place] [address]- 8237 Jun, Anxiety F41.9 ; ADHD (attention deficit hyperactivity disorder) F90.9 ; Night terror F51.4 ; Bulimia F50.2 ; Severe episode of recurrent major depressive disorder, with psychotic features F33.3 and PTSD ( post-traumatic stress disorder) F43.10 [place] [address] [place] [address] 98212- 8726 Jun, Borderline personality disorder F60.3 ; Mood disorder F39 and PTSD (post-traumatic stress disorder) F43.10 [place] [address] [place] [address] 22743- 8721 Jun, Anxiety F41.9 [place] [address] [place] [address] 36358- 3118 Jun, Anxiety F41.9 ; ADHD (attention deficit hyperactivity disorder) F90.9 ; Night terror F51.4 ; Bulimia F50.2 ; Severe episode of recurrent major depressive disorder, with psychotic features F33.3 and PTSD ( post-traumatic stress disorder) F43.10 [place] [address] [place] [address] 66984- 5236 Jun, ADHD (attention deficit hyperactivity disorder) F90.9 ; Night terror F51.4 ; Bulimia F50.2 ; Anxiety F41.9 ; Severe episode of recurrent major depressive disorder, with psychotic features F33.3 and PTSD ( post-traumatic stress disorder) F43.10 [place] [address], [place] [address]- 2279 May, Anxiety F41.9 [place] [address] [place] [address] 38960- 3560 May, PTSD (post-traumatic stress disorder) F43.10 and Borderline personality disorder F60.3 [place] [address] [place] [address] 08821- 1756 Apr, [facility] [id number] [id number] March, Dental examination Z01.20 and Dental caries K02.9 [facility] [address], [place] [address]- 1856 March, Dental examination Z01.20 [facility] [id number] [place] [address] 11085- 7680 March, Tooth abscess K04.7 and Tooth pain K08.89 [facility] [id number] [place] [address] 25347- 5985 March, Borderline personality disorder F60.3 [facility] [id number] [place] [address] 72362- 8915 March, ADHD (attention deficit hyperactivity disorder) F90.9 ; Night terror F51.4 ; Bulimia F50.2 and Anxiety F41.9 [facility] [id number] [place] [address] 45707- 8449 Feb, Borderline personality disorder F60.3 ; ADHD (attention deficit hyperactivity disorder) F90.9 ; Anxiety F41.9 ; Bulimia F50.2 ; Obsessive-compulsive disorder, unspecified type F42.9 and Night terror F51.4 [facility] [address], [place] [address]- 3163 Feb, [facility] [address] [place] [address] 06070- 7423 Feb, [facility] [id number] [place] [address] 12280- 2054 Jul, [facility] [id number] [place] [address] 16939- 1505 Jul, [facility] [id number] [place] [address] 10289- 3045 Jul, [facility] [id number] [place] [address], [place] [address]- 3088 Jul, [facility] [place] [facility] [address] [id number] [place] [address]- 7714 Jun, [facility] [place] [facility] [address] [id number] [place] [address]- 4910 Jun, [facility] [place] [facility] [address] [id number] [place] [address]- 9110 Jun, [facility] [place] [facility] [address] [id number] [place] [address]- 4759 Jun, [facility] [place] [facility] [address] [id number] [place] [address]- 0726 Apr, [facility] [place] [facility] [address] [id number] [place] [address]- 4575 Apr, [facility] [place] [facility] [address] [id number] [place] [address]- 9115 March, [facility] [place] [facility] [address] [id number] [place] [address]- 2934 March, [facility] [place] [facility] [address] [id number] [place] [address]- 3063 Jan, [facility] [place] [facility] [address] [id number] [place] [address]- 9126 Jan, [facility] [place] [facility] [address] [id number] [place] [address]- 9716 Jan, [facility] [place] [facility] [address] [id number] [place] [address]- 0205 Jan, [facility] [place] [facility] [address] [id number] [place] [address]- 4852 Jan, [facility] [place] [facility] [address] [id number] [place] [address]- 6558 Dec, [facility] [place] [facility] [address] [id number] [place] [address]- 3427 Dec, [facility] [place] [facility] [address] [id number] [place] [address]- 9498 Oct, [facility] [place] [facility] [address] [id number] [place] [address]- 4454 Oct, [facility] [place] [facility] [address] [id number] [place] [address]- 9844 Oct, [facility] [place] [facility] [address] [id number] [place] [address]- 2040 Oct, [facility] [address] [id number] [place] [address]- 2040 Sep, [facility] [place] [facility] [address] [id number] [place] [address]- 3218 Sep, [facility] [address] [id number] [place] [address]- 7562 Sep, [facility] [address] [id number] [place] [address]- 3719 Aug, [facility] [place] [facility] [address] [id number] [place] [address]- 4751 Aug, [facility] [place] [facility] [address] [id number] [address]- 8416 Aug, [facility] [place] [facility] [address] [id number] [place] [address]- 8650 Aug, [facility] [place] [facility] [address] [id number], [place] [address]- 8663 Aug, [facility] [place] [facility] [address] [id number] [place] [address]- 9933 Aug, [facility] [place] [facility] [address] [id number] [place] [address]- 4138 Aug, [facility] [place] [facility] [address] [id number] [address]- 6112 05 Jul, 2013 [facility] [place] [facility] [address] [id number], [place] [address]- 1922 Jun, [facility] [place] [facility] [address] [id number] [place] [address]- 4670 Jun, [facility] [place] [facility] [address] [id number] [place] [address]- 9771 Jun, [facility] [place] [facility] [address] [id number] [place] [address]- 5015 Jun, [facility] [place] [facility] [address] [id number] [place] [address]- 5499 Jun, [facility] [place] [facility] [address] [id number] [place] [address]- 9492 Jun, [facility] [place] [facility] [address] [id number] [place] [address]- 1146 May, [facility] [place] [facility] [address] [id number] [place] [address]- 9679 May, [facility] [place] [facility] [address] [id number] [place] [address]- 6769 May, [facility] [place] [facility] [address] [id number] [place] [address]- 8256 May, [facility] [place] [facility] [address] [id number] [place] [address]- 9611 March, [facility] [place] [facility] [address] [id number] [place] [address]- 0153 March, [facility] [place] [facility] [address] [id number] [place] [address]- 1026 March, [facility] [place] [facility] [address] [id number] [place] [address]- 0014 Feb, [facility] [place] [facility] [address] [id number] [place] [address]- 2678 Feb, [facility] [place] [facility] [address] [id number] [place] [address]- 5970 Feb, [facility] [place] [facility] [address] [id number] [place] [address]- 2575 04 Feb, 2013 [facility] [address] [id number] [place] [address]- 3181 Jan, [facility] [place] [facility] [address] [id number] [place] [address]- 4456 Jan, [facility] [address] [id number] [place] [address]- 5578 Jan, [facility] [place] [facility] [address] [id number] [place] [address]- 8450 Dec, [facility] [address] [id number] [place] [address]- 7256 Dec, [facility] [address] [id number] [place] [address]- 0926 Dec, [facility] [address] [id number] [place] [address]- 1054 Dec, [facility] [address] [id number] [place] [address]- 0528 Dec, [facility] [address] [id number] [place] [address]- 5907 Nov, [facility] [address] [id number] [place] [address]- 7008 Nov, [facility] [address] [id number] [place] [address]- 3326 Nov, [facility] [address] [id number] [place] [address]- 1691 Nov, [facility] [place] [facility] [address] [id number] [place] [address] 2546 Oct, [facility] [place] [facility] [address] [id number] [place] [address] 254 Oct, [facility] [place] [facility] [address] [id number] [place] [address]- 2358 Oct, [facility] [place] [facility] [address] [id number] [place] [address]- 7816 Oct, [facility] [place] [facility] [address] [id number] [place] 5686 Oct, [facility] [place] [facility] [address] [facility] [id number] [place] [address]- 4516 Oct, [facility] [place] [facility] [address] [id number] [place] 4816 Oct, [facility] [place] [facility] [address] [id number] [place] [address]- 6658 Oct, [facility] [place] [facility] [address] [id number] [place] [address]- 7796 Oct, [facility] [place] [facility] [address] [id number] [place] [address]- 6875 Oct, [facility] [place] [facility] [address] [id number] [place] [address]- 4713 Oct, [facility] [place] [facility] [address] [id number] [place] [address]- 3074 Oct, [facility] [place] [facility] [address] [id number] [place] [address]- 0703 Oct, [facility] [place] [facility] [address] [id number], [place] [address]- 7512 Sep, [facility] [place] [facility] [address] [id number], [place] [address]- 8926 Sep, [facility] [place] [facility] [address] [id number] [place] [address]- 6256 Sep, [facility] [place] [facility] [address] [id number] [place] [address]- 4356 Sep, [facility] [place] [facility] [address] [facility] [id number] [place] [address]- 5746 Sep, [facility] [place] [facility] [address] [id number] [place] [address]- 1898 06 Sep, 2012 [facility] [place] [facility] [address] [id number] [place] [address]- 5686 Sep, [facility] [place] [facility] [address] [id number] [place] [address]- 8083 Sep, [facility] [place] [facility] [address] [id number] [place] [address]- 8094 Sep, [facility] [place] [facility] [address] [id number] [place] [address]- 1303 Sep, [facility] [place] [facility] [address] [id number] [place] [address] Sep, [facility] [place] [facility] [address] [id number] [place] [address] Sep, [facility] [place] [facility] [address] [id number] [place] [address] Aug, [facility] [place] [facility] [address] [id number] [place] [address] Aug, [facility] [place] [facility] [address] [id number] [place] [address] Aug, [facility] [place] [facility] [address] [facility] [id number] [place] [address] Aug, [facility] [place] [facility] [address] [id number] [place] [address] 14 Aug, 2012 [facility] [place] [facility] [address] [id number] [place] [address] 14 Aug, 2012 [facility] [place] [facility] [address] [id number] [place] [address] Aug, [facility] [place] [facility] [address] [facility] [id number] [place] [address] Aug, [facility] [place] [facility] [address] [id number] [place] [address] Aug, [facility] [place] [facility] [address] [id number] [place] [address] 08 Aug, 2012 [facility] [place] [facility] [address] [id number] [place] [address] Aug, [facility] [place] [facility] [address] [id number] [place] [address] Aug, [facility] [place] [facility] [address] [id number] [place] [address] 28 Jul, 2012 [facility] [place] [facility] [address] [id number] [place] [address] 27 Jul, 2012 [facility] [place] [facility] [address] [id number] [place] [address] 21 Jul, 2012 [facility] [place] [facility] [address] [id number] [place] [address] 10 Jul, 2012 [facility] [place] [facility] [address] [id number] [place] [address] 05 Jul, 2012 [facility] [place] [facility] [address] [id number] [place] [address] Jul, [facility] [place] [facility] [address] [id number] [place] [address] Jun, [facility] [place] [facility] [address] [id number] [place] [address] Jun, [facility] [place] [facility] [address] [id number] [place] [address] Jun, [facility] [place] [facility] [address] [id number] [place] [address] May, [facility] [place] [facility] [address] [id number] [place] [address] May, [facility] [place] [facility] [address] [id number] [place] [address] 14 May, 2012 [facility] [place] [facility] [address] [id number] [place] [address] 09 May, 2012 [facility] [place] [facility] [address] [id number] [place] [address] 06 May, 2012 [facility] [place] [facility] [address] [id number] [place] [address] 05 May, 2012 [facility] [place] [facility] [address] [id number] [place] [address] 30 Apr, 2012 [facility] [place] [facility] [address] [id number] [place] [address] 23 Feb, 2012 [facility] [place] [facility] [address] [id number] [place] [address] 18 Feb, 2012 [facility] [place] [facility] [address] [id number] [place] [address] 11 Feb, 2012 [facility] [place] [facility] [address] [id number] [place] [address] 10 Feb, 2012 [facility] [place] [facility] [address] [id number] [place] [address] 16 Jan, 2012 [facility] [facility] [address] [id number] [place] [address] 12 Jan, 2012 [facility] [place] [facility] [address] [id number] [place] [address] 29 Dec, 2011 [facility] [place] [facility] [address] [id number] [place] [address] 28 Dec, 2011 [facility] [place] [facility] [address] [id number] [place] [address] 21 Dec, 2011 [facility] [place] [facility] [address] [id number] [place] [address] 14 Dec, 2011 [facility] [place] [facility] [address] [id number] [place] [address] 14 Dec, 2011 [facility] [place] [facility] [address] [facility] [id number] [place] [address] 13 Dec, 2011 [facility] [place] [facility] [address] [id number] [place] [address] Dec, [facility] [address] [id number] [place] [address] Dec, [facility] [address] [id number] [place] [address] Dec, [facility] [address] [id number] [place] [address] Nov, [facility] [address] [id number] [place] [address] Nov, [facility] [address] [id number] [place] [address] Nov, [facility] [address] [id number] [place] [address] Nov, [facility] [address] [id number] [place] [address] Nov, [facility] [address] [id number] [place] [address] Nov, [facility] [address] [id number] [place] [address] Nov, [facility] [address] [id number] [place] [address] Nov, [facility] [address] [id number] [place] [address] Nov, [facility] [address] [id number] [place] [address] Oct, [facility] [address] [id number] [place] [address] Oct, [facility] [address] [id number] [place] [address] Oct, [facility] [address] [id number] [address] Oct, [facility] [address] [id number] [place] [address] 39[address] Oct, [facility] [place] [facility] [address] [id number] [place] [address] Oct, [facility] [address] [facility] [id number] [place] [address] Sep, [facility] [place] [facility] [address] [id number] [place] [address] Aug, [facility] [place] [facility] [address] [id number] [place] [address] Jul, [facility] [place] [facility] [address] [id number] [place] [address]798 Nov, [facility] [place] [facility] [address] [facility] [id number] [place] [address] Nov, [facility] [place] [facility] [address] [id number] [place] [address] Oct, [facility] [address] [facility] [id number], [place] [address] Sep, [facility] [address] [facility] [id number] [place] [address]661 Sep, [facility] [address] [facility] [id number], [place] [address] 18 Aug, 2010 [facility] [address] [id number], [place] [address] 14 Aug, 2010 [facility] [address] [id number] [place] [address] 14 Aug, 2010 [facility] [address] [facility] [id number], [place] [address] 13 Feb, 2010 [facility] [address] [facility] [id number] [place] [address] 10 Dec, 2009 [facility] [address] [id number], [place] [address] Oct, [facility] [id number], [place] [address] Oct, [facility] [id number], [place] [address] Oct, [facility] [id number] [address] Sep, [facility] [id number], [place] [address] Sep, [facility] [id number], [place] [address] Sep, [facility] [id number], [place] [address] Aug, [facility] [id number], [place] [address] Aug, IMMUNIZATIONS No Known Immunizations SOCIAL HISTORY Never Assessed REASON FOR VISIT f/vidya Ward RN PLAN OF CARE Activity Details Follow Up 3 Months Reason: VITAL SIGNS Height 63 in 2018-01-15 Heart Rate 70 bpm 2018-01-15 Respiratory Rate 18 2018-01-15 Blood pressure systolic 138 mmHg 2018-01-15 Blood pressure diastolic 78 mmHg 2018-01-15 MEDICATIONS Medication Instructions Dosage Frequency Start Date End Date Duration Status Desvenlafaxine Succinate ER 100 MG Orally in morning 1 tablet 30 days Active [place] Carbonate 300 MG Orally twice a day 1 capsule 12h 30 days Active Seroquel 100 MG Orally Three times a day 1 tablet 8h 27 Oct, 2017 30 days Active Quetiapine Fumarate 300 MG Orally Once a day at night 1 tablet 30 days Active Gabapentin 800 MG Orally 3 times a day 1 tablet 8h 90 days Active Voltaren 1 % Transdermal 2 [...] EGD Hospitalization History mental health issues x2 [facility] [place] 2016 & 02/2017 Hospitalization History Surgery(s)/Childbirth(s)
--- OUTSIDE RECORDS SUMMARY | 2018-08-03 08:38 | XMS REPORT ---
Author Author RUBEN Braga Organization [facility] Address [address] [place] [address] Care Team Providers Care Picker Tender Name Role Phone Maria Luz RUBEN Unavailable PROBLEMS Type Condition ICD9-CM Code O[facility]23-YM Code Onset Dates Condition Status SNOMED Code Problem Mood disorder F39 Active 36682158 Problem Schizo affective schizophrenia F25.0 Active 851058381 Problem Adjustment disorder with mixed anxiety and depressed mood F43.23 Active 74002474 Problem Other chronic pain G89.29 Active 41140255 Problem Lumbago with sciatica, right side M54.41 Active 474178305 Problem Sciatica, unspecified side M54.30 Active 52252842 Problem Bipolar 1 disorder F31.9 Active 093792949 Problem Morbid obesity due to excess calories E66.01 Active 680069644 Problem Cannabis use disorder, mild, abuse F12.10 Active 95135357 Problem Night terror F51.4 Active 35856000 Problem Anxiety F41.9 Active 14979572 Problem PTSD (post-traumatic stress disorder) F43.10 Active 60645923 Problem Borderline personality disorder F60.3 Active 73922755 Problem Severe episode of recurrent major depressive disorder, with psychotic features F33.3 Active 58814082 ALLERGIES Substance Reaction Event Type Date Status Pseudoephedrine HCl ER unknown Drug Allergy Jan, Active Phenytoin rash Drug Allergy Jan, Active Penicillamine anaphylaxis Drug Allergy Jan, Active Cephalexin anaphylaxis Drug Allergy Jan, Active Albuterol unknown Drug Allergy Jan, Active ENCOUNTERS Encounter Location Date Diagnosis [facility] [address] [facility] [id number] [address] Jun, [facility] [address] [facility] [id number] [address] May, [facility] [address] [id number] [address] May, PTSD (post-traumatic stress disorder) F43.10 ; Mood disorder F39 ; Borderline personality disorder F60.3 and Cannabis use disorder, mild, abuse F12.10 [place] [address] [place] [address] 04125- 9573 May, [place] [address] [address] [id number] [place] [address] 49899- 3565 Apr, BMI 40.0-44.9, adult Z68.41 [place] [address] [address] [id number] [place] [address] 49009- 1503 14 Apr, 2018 Acute non-recurrent maxillary sinusitis J01.00 [place] [id number] [place] [address] 89039- 8848 11 Apr, 2018 PTSD (post-traumatic stress disorder) F43.10 ; Mood disorder F39 ; Borderline personality disorder F60.3 ; Cannabis use disorder, mild, abuse F12.10 and Other fdc (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 [place] [address] [place] [address] 29815- 3022 08 Apr, 2018 [place] [address] [address] [id number] [place] [address] 54862- 1617 07 Apr, 2018 Annual physical exam Z00.00 and High risk medication use Z79.899 [place] [address] [place] [address] 04204- 5122 07 Apr, 2018 PTSD (post-traumatic stress disorder) F43.10 [place] [address] [place] [address] 47256- 3800 Apr, [place] [address] [address] [id number] [place] [address] 42105- 5451 March, BMI 40.0-44.9, adult Z68.41 ; Morbid obesity due to excess calories E66.01 ; Lumbago with sciatica, right side M54.41 and Other chronic pain G89.29 [place] [address] March, PTSD (post-traumatic stress disorder) F43.10 [facility] [id number] [place] [address] 84694- 4198 March, PTSD (post-traumatic stress disorder) F43.10 ; Mood disorder F39 ; Borderline personality disorder F60.3 and Cannabis use disorder, mild, abuse F12.10 [facility] [address] [place] [address] 45019- 2542 Feb, [place] [id number] [place] [address] 92899- 1679 Feb, [facility] [address] [place] [id number] [place] [address] Feb, Breast cancer screening Z12.31 [place] [id number] [place] [address] 00708- 0537 Feb, Mood disorder F39 and PTSD (post-traumatic stress disorder) F43.10 [place] [address] [address] 6[address] Feb, PTSD (post-traumatic stress disorder) F43.10 ; Mood disorder F39 ; Borderline personality disorder F60.3 and Cannabis use disorder, mild, abuse F12.10 [place] [address] [address] 89[address] Feb, Schizo affective schizophrenia F25.0 ; Adjustment disorder with mixed anxiety and depressed mood F43.23 ; Night terror F51.4 ; Anxiety F41.9 and Borderline personality disorder F60.3 [place] [address] [place] [address] 90837- 4700 Feb, [place] [id number] [place] [address] 86317- 9262 Feb, Mood disorder F39 [facility] [address] [place] [address] 80074- 6975 Feb, Annual physical exam Z00.00 ; BMI 40.0-44.9, adult Z68.41 and Nipple discharge N64.52 [place] [address] [id number]- 8188 Jan, Schizo affective schizophrenia F25.0 ; Adjustment disorder with mixed anxiety and depressed mood F43.23 ; Night terror F51.4 ; Anxiety F41.9 and Borderline personality disorder F60.3 [place] [address] [address]- 6[address] Jan, Mood disorder F39 ; PTSD (post-traumatic stress disorder) F43.10 ; Borderline personality disorder F60.3 and High risk medication use Z79.899 [place] [address] [address]165- 2887 Dec, Anxiety F41.9 and Borderline personality disorder F60.3 [place] [address] 01081- 8405 Dec, [place] [address] 79904- 4868 Dec, Anxiety F41.9 and Borderline personality disorder F60.3 [place] [address] 37130- 1578 Dec, [place] [address] 15194- 8598 Dec, [place] [address] [place] [id number]- 4004 Nov, Acute non-recurrent maxillary sinusitis J01.00 ; Mood disorder F39 and Sciatica, unspecified side M54.30 [place] [address] 76827- 5591 Nov, Mood disorder F39 ; PTSD (post-traumatic stress disorder) F43.10 and Borderline personality disorder F60.3 [place] [address] 07733- 4390 Nov, Anxiety F41.9 and Borderline personality disorder F60.3 [facility] [id number] [place] [address] 54914- 1945 Nov, [facility] [id number] [place] [address]80 Nov, Anxiety F41.9 and Sciatica, unspecified side M54.30 [facility] [address] 36100- 5470 Oct, Anxiety F41.9 [place] [id number] [place] [address] 66528- 0181 Oct, Mood disorder F39 ; PTSD (post-traumatic stress disorder) F43.10 ; Borderline personality disorder F60.3 and High risk medication use Z79.899 [facility] [id number] [place] [address] [id number] 11 Oct, 2017 Dental caries K02.9 and Dental examination Z01.20 [place] [address] [address] [id number] [place] [address] 13981- 5973 Sep, Dysuria R30.0 and Abdominal pain, right lower quadrant R10.31 [facility] [id number] [place] [address] 44114- 8491 Aug, Mood disorder F39 ; PTSD (post-traumatic stress disorder) F43.10 and Borderline personality disorder F60.3 [place] [address] [address] [id number] [place] [address] 82855- 8298 Aug, [facility] [id number] [place] [address] 45577- 4206 Aug, [place] [id number] [place] [address] 21988- 2502 Aug, Severe episode of recurrent major depressive disorder, with psychotic features F33.3 ; PTSD (post-traumatic stress disorder) F43.10 ; Adjustment disorder with mixed anxiety and depressed mood F43.23 and Borderline personality disorder F60.3 [facility] [address] [facility] [id number] [address] 3651 Aug, Mood disorder F39 ; PTSD (post-traumatic stress disorder) F43.10 and Borderline personality disorder F60.3 [facility] [id number] [address] 2546 Aug, [facility] [id number] [place] [address] 37469- 6336 Aug, Bipolar 1 disorder F31.9 and Schizo affective schizophrenia F25.0 [facility] [id number] [place] [address] 91146- 9316 Aug, Mood disorder F39 [facility] [id number] [place] [address] 95126- 8546 Aug, Bipolar 1 disorder F31.9 and Schizo affective schizophrenia F25.0 [facility] [id number] [place] [address] 55221- 4289 Aug, Bipolar 1 disorder F31.9 and Schizo affective schizophrenia F25.0 [facility] [id number] [place] [address] 91822- 3576 Aug, [facility] [id number] [place] [address] 59590- 7623 Aug, PTSD (post-traumatic stress disorder) F43.10 and Borderline personality disorder F60.3 [facility] [id number] [place] [address] 65720- 0514 Aug, [facility] [id number] [place] [address] 59267- 1976 Aug, Mood disorder F39 ; PTSD (post-traumatic stress disorder) F43.10 ; Borderline personality disorder F60.3 and Adjustment disorder with mixed anxiety and depressed mood F43.23 [facility] [id number] [address]- 9056 Jul, [facility] [id number] [address]- 8383 Jul, Mood disorder F39 ; PTSD (post-traumatic stress disorder) F43.10 and Borderline personality disorder F60.3 [facility] [address] [address]- 2263 Jul, [facility] [address] [place] [address] 37943- 9497 Jun, Anxiety F41.9 ; ADHD (attention deficit hyperactivity disorder) F90.9 ; Night terror F51.4 ; Bulimia F50.2 ; Severe episode of recurrent major depressive disorder, with psychotic features F33.3 and PTSD ( post-traumatic stress disorder) F43.10 [facility] [address] [place] [address] 60682- 2870 Jun, Borderline personality disorder F60.3 ; Mood disorder F39 and PTSD (post-traumatic stress disorder) F43.10 [place] [address] [place] [address] 05338- 9280 Jun, Anxiety F41.9 [place] [address] [address] [id number] [place] [address] 73060- 2624 Jun, Anxiety F41.9 ; ADHD (attention deficit hyperactivity disorder) F90.9 ; Night terror F51.4 ; Bulimia F50.2 ; Severe episode of recurrent major depressive disorder, with psychotic features F33.3 and PTSD ( post-traumatic stress disorder) F43.10 [facility] [address] [address]- 6411 Jun, ADHD (attention deficit hyperactivity disorder) F90.9 ; Night terror F51.4 ; Bulimia F50.2 ; Anxiety F41.9 ; Severe episode of recurrent major depressive disorder, with psychotic features F33.3 and PTSD ( post-traumatic stress disorder) F43.10 [facility] [address] [address]- 2017 May, Anxiety F41.9 [place] [id number] [place] [address] 10533- 3298 May, PTSD (post-traumatic stress disorder) F43.10 and Borderline personality disorder F60.3 [facility] [id number] [place] [address] 33450- 0637 Apr, [facility] [address] [place] [address] [id number] March, Dental examination Z01.20 and Dental caries K02.9 [facility] [id number] [place] [address] 76373- 2174 March, Dental examination Z01.20 [facility] [id number] [place] [address] 80840- 9790 March, Tooth abscess K04.7 and Tooth pain K08.89 [place] [address] [id number] [place] [address] 95321- 0345 March, Borderline personality disorder F60.3 [facility] [id number] [place] [address] 80108- 7649 March, ADHD (attention deficit hyperactivity disorder) F90.9 ; Night terror F51.4 ; Bulimia F50.2 and Anxiety F41.9 [facility] [id number] [place] [address] 71434- 7032 Feb, Borderline personality disorder F60.3 ; ADHD (attention deficit hyperactivity disorder) F90.9 ; Anxiety F41.9 ; Bulimia F50.2 ; Obsessive-compulsive disorder, unspecified type F42.9 and Night terror F51.4 [facility] [id number] [place] [address] 02781- 0012 Feb, [facility] [id number] [place] [address] 96009- 2824 Feb, [facility] [id number] [place] [address] 59267- 2625 04 Jul, 2014 [facility] [id number] [place] [address] [place] [address]- 1806 Jul, [facility] [place] [facility] [address] [id number] [place] [address]- 9495 Jul, [facility] [place] [facility] [address] [id number] [place] [address]- 2154 Jul, [facility] [place] [facility] [address] [id number] [place] [address]- 6804 Jun, [facility] [place] [facility] [address] [id number] [place] [address]- 9974 Jun, [facility] [place] [facility] [address] [id number] [place] [address]- 7807 Jun, [facility] [place] [facility] [address] [id number] [place] [address]- 0622 Jun, [facility] [place] [facility] [address] [id number] [place] [address]- 0085 Apr, [facility] [place] [facility] [address] [id number] [place] [address]- 5908 Apr, [facility] [place] [facility] [address] [id number] [place] [address]- 6210 March, [facility] [place] [facility] [address] [id number] [place] [address]- 6125 March, [facility] [place] [facility] [address] [id number] [place] [address]- 4669 Jan, [facility] [place] [facility] [address] [id number] [place] [address]- 4753 Jan, [facility] [place] [facility] [address] [id number] [place] [address]- 7289 Jan, [facility] [place] [facility] [address] [id number] [place] 1368 Jan, [facility] [place] [facility] [address] [id number] [place] [address]- 3100 Jan, [facility] [place] [facility] [address] [id number] [place] [address]- 5143 Dec, [facility] [place] [facility] [address] [id number] [place] 4999 Dec, [facility] [place] [facility] [address] [id number] [place] [address]- 6802 Oct, [facility] [place] [facility] [address] [id number] [place] 7070 Oct, [facility] [place] [facility] [address] [id number] [place] [address]- 4926 Oct, [facility] [place] [facility] [address] [id number] [place] [address]- 7438 Oct, [facility] [place] [facility] [address] [facility] [id number] [place] [address]- 1906 Sep, [facility] [place] [facility] [address] [id number] [place] [address]- 6300 Sep, [facility] [place] [facility] [address] [id number] [place] [address]- 6184 Sep, [facility] [place] [facility] [address] [id number] [place] [address]- 3983 Aug, [facility] [place] [facility] [address] [id number] [place] [address]- 4564 Aug, [facility] [place] [facility] [address] [id number] [address]- 2090 Aug, [facility] [place] [facility] [address] [id number] [place] [address]- 6424 Aug, [facility] [place] [facility] [address] [id number] [place] [address]- 1161 Aug, [facility] [place] [facility] [address] [id number] [place] [address]- 0660 Aug, [facility] [place] [facility] [address] [id number] [place] [address]- 4366 Aug, [facility] [address] [id number] [place] [address]- 7627 Jul, [facility] [place] [facility] [address] [id number] [place] [address]- 1109 Jun, [facility] [place] [facility] [address] [id number] [place] [address]- 8902 Jun, [facility] [place] [facility] [address] [id number] [place] [address]- 5028 Jun, [facility] [place] [facility] [address] [id number] [place] [address]- 0080 Jun, [facility] [place] [facility] [address] [id number] [place] [address]- 9320 Jun, [facility] [place] [facility] [address] [id number] [place] [address]- 3077 Jun, [facility] [place] [facility] [address] [id number] [place] [address]- 5276 May, [facility] [place] [facility] [address] [id number] [place] [address]- 7662 May, [facility] [place] [facility] [address] [id number] [place] [address]- 7269 May, [facility] [place] [facility] [address] [id number] [place] [address]- 6250 May, [facility] [place] [facility] [address] [id number] [place] [address]- 7656 March, [facility] [place] [facility] [address] [id number] [place] [address]- 9504 March, [facility] [place] [facility] [address] [id number] [place] [address]- 2489 March, [facility] [place] [facility] [address] [id number] [place] [address]- 5661 Feb, [facility] [place] [facility] [address] [id number] [place] [address]- 7084 29 Feb, 2013 [facility] [address] [id number] [place] [address]- 9426 10 Feb, 2013 [facility] [address] [id number] [place] [address] 2546 04 Feb, 2013 [facility] [address] [id number] [place] [address]- 7503 Jan, [facility] [address] [id number] [place] [address]- 7248 Jan, [facility] [address] [id number] [place] [address]- 5519 Jan, [facility] [address] [id number] [place] [address]- 4246 Dec, [facility] [address] [id number] [place] [address]- 4065 14 Dec, 2012 [facility] [address] [id number] [place] [address]- 0377 Dec, [facility] [address] [id number] [place] [address]- 4526 05 Dec, 2012 [facility] [address] [facility] [id number] [place] [address]- 1076 Dec, [facility] [address] [id number] [place] [address]- 8916 Nov, [facility] [address] [id number] [place] [address] 2545 Nov, [facility] [place] [facility] [address] [id number] [place] [address]- 2786 Nov, [facility] [address] [id number] [place] [address]- 2546 Nov, [facility] [address] [id number] [place] [address]- 6323 Oct, [facility] [place] [facility] [address] [id number] [place] [address]- 9794 Oct, [facility] [place] [facility] [address] [id number] [place] [address]- 0276 Oct, [facility] [place] [facility] [address] [id number] [place] 0436 Oct, [facility] [place] [facility] [address] [id number] [place] [address]- 1874 Oct, [facility] [place] [facility] [address] [id number] [place] [address]- 7002 Oct, [facility] [place] [facility] [address] [id number] [place] [address]- 2803 Oct, [facility] [place] [facility] [address] [id number] [place] [address]- 5290 Oct, [facility] [place] [facility] [address] [id number] [place] [address]- 5981 Oct, [facility] [place] [facility] [address] [id number] [place] [address]- 5960 Oct, [facility] [place] [facility] [address] [id number] [place] [address]- 5992 Oct, [facility] [place] [facility] [address] [id number] [place] [address]- 8615 Oct, [facility] [place] [facility] [address] [id number] [address]- 2708 Oct, [facility] [place] [facility] [address] [id number] [place] [address]- 2148 Sep, [facility] [place] [facility] [address] [id number] [place] [address]- 5609 Sep, [facility] [place] [facility] [address] [id number] [place] [address]- 8016 Sep, [facility] [place] [facility] [address] [id number] [place] [address]- 6523 27 Sep, 2012 [facility] [place] [facility] [address] [id number] [place] [address]- 2079 Sep, [facility] [place] [facility] [address] [id number] [place] [address]- 6056 Sep, [facility] [place] [facility] [address] [id number] [place] [address] Sep, [facility] [place] [facility] [address] [id number] [place] [address] Sep, [facility] [place] [facility] [address] [id number] [place] [address] Sep, [facility] [place] [facility] [address] [id number] [place] [address] Sep, [facility] [place] [facility] [address] [facility] [id number] [place] [address] Sep, [facility] [place] [facility] [address] [id number] [place] [address] Sep, [facility] [place] [facility] [address] [facility] [id number] [place] [address] Aug, [facility] [place] [facility] [address] [facility] [id number] [place] [address] 31 Aug, 2012 [facility] [place] [facility] [address] [id number] [place] [address] Aug, [facility] [place] [facility] [address] [id number] [place] [address] Aug, [facility] [place] [facility] [address] [id number] [place] [address] 14 Aug, 2012 [facility] [place] [facility] [address] [facility] [id number] [place] [address] 14 Aug, 2012 [facility] [place] [facility] [address] [facility] [id number] [address] Aug, [facility] [place] [facility] [address] [id number] [place] [address] Aug, [facility] [place] [facility] [address] [id number] [place] [address] Aug, [facility] [place] [facility] [address] [id number] [place] [address] Aug, [facility] [place] [facility] [address] [id number] [place] [address] Aug, [facility] [place] [facility] [address] [id number] [place] [address] Aug, [facility] [place] [facility] [address] [id number] [place] [address] 28 Jul, 2012 [facility] [place] [facility] [address] [id number] [place] [address] 27 Jul, 2012 [facility] [place] [facility] [address] [id number] [place] [address] 21 Jul, 2012 [facility] [place] [facility] [address] [id number] [place] [address] 10 Jul, 2012 [facility] [place] [facility] [address] [id number] [place] [address] 05 Jul, 2012 [facility] [place] [facility] [address] [id number] [place] [address] Jul, [facility] [place] [facility] [address] [id number] [place] [address] Jun, [facility] [place] [facility] [address] [id number] [place] [address] Jun, [facility] [place] [facility] [address] [id number] [place] [address] Jun, [facility] [place] [facility] [address] [id number] [place] [address] May, [facility] [place] [facility] [address] [id number] [place] [address] 25 May, 2012 [facility] [place] [facility] [address] [id number] [place] [address] 14 May, 2012 [facility] [place] [facility] [address] [id number] [place] [address] 09 May, 2012 [facility] [place] [facility] [address] [id number] [place] [address] 06 May, 2012 [facility] [place] [facility] [address] [id number] [place] [address] 05 May, 2012 [facility] [place] [facility] [address] [id number] [place] [address] 30 Apr, 2012 [facility] [place] [facility] [address] [id number] [place] [address] 23 Feb, 2012 [facility] [place] [facility] [address] [id number] [place] [address] 18 Feb, 2012 [facility] [place] [facility] [address] [id number] [place] [address] 11 Feb, 2012 [facility] [place] [facility] [address] [id number] [place] [address] 10 Feb, 2012 [facility] [place] [facility] [address] [id number] [place] [address] 16 Jan, 2012 [facility] [place] [facility] [address] [id number] [place] [address] Jan, [facility] [place] [facility] [address] [id number] [place] [address] 29 Dec, 2011 [facility] [place] [facility] [address] [id number] [place] [address] 28 Dec, 2011 [facility] [place] [facility] [address] [id number] [place] [address] 21 Dec, 2011 [facility] [place] [facility] [address] [id number] [place] [address]83 14 Dec, 2011 [facility] [place] [facility] [address] [id number] [place] [address] 14 Dec, 2011 [facility] [place] [facility] [address] [id number] [place] [address] 13 Dec, 2011 [facility] [place] [facility] [address] [id number] [place] [address]266 09 Dec, 2011 [facility] [place] [facility] [address] [id number] [place] [address] 12[address] 07 Dec, 2011 [facility] [place] [facility] [address] [id number] [place] [address] Dec, [facility] [place] [facility] [address] [id number] [place] [address] 30 Nov, 2011 [facility] [address] [id number] [place] [address] Nov, [facility] [address] [id number] [place] [address] Nov, [facility] [address] [id number] [place] [address] Nov, [facility] [address] [id number] [place] [address] Nov, [facility] [place] [facility] [address] [id number] [place] [address] 16 Nov, 2011 [facility] [address] [id number] [place] [address] Nov, [facility] [place] [facility] [address] [id number] [place] [address] Nov, [facility] [place] [facility] [address] [id number] [place] [address] Nov, [facility] [place] [facility] [address] [id number] [place] [address] Oct, [facility] [place] [facility] [address] [id number] [place] [address] Oct, [facility] [place] [facility] [address] [id number] [place] [address] Oct, [facility] [place] [facility] [address] [id number] [place] [address] Oct, [facility] [place] [facility] [address] [id number] [place] [address] Oct, [facility] [place] [facility] [address] [id number] [place] [address] Oct, [facility] [place] [facility] [address] [id number] [place] [address] Sep, [facility] [place] [facility] [address] [id number] [place] [address] Aug, [facility] [place] [facility] [address] [id number] [place] [address] Jul, [facility] [place] [facility] [address] [id number] [place] [address] Nov, [facility] [place] [facility] [address] [id number] [place] [address] Nov, [facility] [place] [facility] [address] [id number] [place] [address] Oct, [facility] [place] [facility] [address] [id number] [place] [address] Sep, [facility] [place] [facility] [address] [id number] [place] [address] Sep, [facility] [place] [facility] [address] [id number] [place] [address] 18 Aug, 2010 [facility] [place] [facility] [address] [id number] [place] [address] 14 Aug, 2010 [facility] [place] [facility] [address] [id number] [place] [address] 14 Aug, 2010 [facility] [place] [facility] [address] [id number] [place] [address] Feb, [facility] [id number] [address] Dec, [facility] [id number] [address] Oct, [facility] [id number] [address] Oct, [facility] [id number] [address] Oct, [facility] [id number] Sep, [facility] [id number] [address] Sep, [facility] [id number] [address] Sep, [facility] [id number] [address] Aug, [facility] [id number] [address] Aug, IMMUNIZATIONS No Known Immunizations SOCIAL HISTORY Never Assessed REASON FOR VISIT f/u PLAN OF CARE Activity Details Follow Up 2 Weeks Reason:Anxiety, depression VITAL SIGNS MEDICATIONS Medication Instructions Dosage Frequency Start Date End Date Duration Status Gabapentin 800 MG Orally 3 times a day 1 tablet 8h 90 days Unknown [place] Carbonate 300 MG Orally twice a day 1 capsule 12h 30 days Unknown Seroquel 100 MG Orally Three times a day 1 tablet 8h 27 Oct, 2017 30 days Unknown Voltaren 1 % Transdermal 2 times a day apply 4gm as needed to lower back as needed 12h Nov, 30 days Unknown Quetiapine Fumarate 300 MG Orally Once a day at night 1 tablet 30 days Unknown Desvenlafaxine Succinate ER 100 MG Orally in morning 1 tablet 30 days Unknown RESULTS No Results PROCEDURES Procedure Date Ordered Result Body Site Psychotherapy, patient &/family, 45 minutes, established patient January 18, 2018 INSTRUCTIONS MEDICATIONS ADMINISTERED No Known Medications [...] mental health issues x2 Ward Unit in [place] 2016 & 02/2017 Hospitalization History Surgery(s)/Childbirth(s)
--- OUTSIDE RECORDS SUMMARY | 2018-08-03 08:39 | XMS REPORT ---
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 Name Role Phone GARIMALUCERO REEDA Unavailable PROBLEMS Type Condition ICD9-CM Code [id number] Code Onset Dates Condition Status SNOMED Code Problem Mood disorder F39 Active 63745753 Problem Schizo affective schizophrenia F25.0 Active 118775223 Problem Adjustment disorder with mixed anxiety and depressed mood F43.23 Active 76345619 Problem Other chronic pain G89.29 Active 55466645 Problem Lumbago with sciatica, right side M54.41 Active 250239918 Problem Sciatica, unspecified side M54.30 Active 76264020 Problem Bipolar 1 disorder F31.9 Active 115845160 Problem Morbid obesity due to excess calories E66.01 Active 490610353 Problem Cannabis use disorder, mild, abuse F12.10 Active 27878918 Problem Night terror F51.4 Active 71137875 Problem Anxiety F41.9 Active 70737271 Problem PTSD (post-traumatic stress disorder) F43.10 Active 24441020 Problem Borderline personality disorder F60.3 Active 06373871 Problem Severe episode of recurrent major depressive disorder, with psychotic features F33.3 Active 67618004 ALLERGIES No Information ENCOUNTERS Encounter Location Date Diagnosis [facility] [id number], [place] [address] May, [facility] [id number], [place] [address] 18 Apr, 2018 BMI 40.0-44.9, adult Z68.41 [facility] [address] [place] [address] 57300- 9376 14 Apr, 2018 Acute non-recurrent maxillary sinusitis J01.00 [facility] [address] [place] [address] 74696- 1095 Apr, PTSD (post-traumatic stress disorder) F43.10 ; Mood disorder F39 ; Borderline personality disorder F60.3 ; Cannabis use disorder, mild, abuse F12.10 and 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 [facility] [address], [place] [address] Apr, [id number] [place] [address] 39173- 3713 Apr, Annual physical exam Z00.00 and High risk medication use Z79.899 [place] [address] [place] [address] 83229- 0331 Apr, PTSD (post-traumatic stress disorder) F43.10 [address] [address] [place] [address] 24872- 3129 Apr, [id number] [place] [address] 27761- 4016 March, BMI 40.0-44.9, adult Z68.41 ; Morbid obesity due to excess calories E66.01 ; Lumbago with sciatica, right side M54.41 and Other chronic pain G89.29 [facility] [address] [place] [address] 31508- 3902 March, PTSD (post-traumatic stress disorder) F43.10 [place] [address] [place] [address] 44921- 2096 March, PTSD (post-traumatic stress disorder) F43.10 ; Mood disorder F39 ; Borderline personality disorder F60.3 and Cannabis use disorder, mild, abuse F12.10 [place] [address] [place] [address] 37908- 9046 Feb, [facility] [address] [place] [address] 46597- 0251 Feb, [facility] [address] [place] [id number] [place] [address] Feb, Breast cancer screening Z12.31 [place] [id number] [place] [address] 43506- 1286 17 Feb, 2018 Mood disorder F39 and PTSD (post-traumatic stress disorder) F43.10 [place] [id number] [place] [address] 86663- 5956 Feb, PTSD (post-traumatic stress disorder) F43.10 ; Mood disorder F39 ; Borderline personality disorder F60.3 and Cannabis use disorder, mild, abuse F12.10 [place] [address] [address]- [address]186 Feb, Schizo affective schizophrenia F25.0 ; Adjustment disorder with mixed anxiety and depressed mood F43.23 ; Night terror F51.4 ; Anxiety F41.9 and Borderline personality disorder F60.[address] [place] [address] [address]487- 8375 Feb, [place] [address] [address]- 2689 Feb, Mood disorder F39 [address] [place] [address] [address]- 2007 Feb, Annual physical exam Z00.00 ; BMI 40.0-44.9, adult Z68.41 and Nipple discharge N64.52 [address] [id number] [place] [address] 01664- 7616 Jan, Schizo affective schizophrenia F25.0 ; Adjustment disorder with mixed anxiety and depressed mood F43.23 ; Night terror F51.4 ; Anxiety F41.9 and Borderline personality disorder F60.[address] [place] [address] 58973- 7789 Jan, Mood disorder F39 ; PTSD (post-traumatic stress disorder) F43.10 ; Borderline personality disorder F60.3 and High risk medication use Z79.899 [place] [address] 22445- 7700 Dec, Anxiety F41.9 and Borderline personality disorder F60.3 [facility] [address] [place] [address] 58969- 1115 Dec, [facility] [id number] [place] [address] 56883- 6972 Dec, Anxiety F41.9 and Borderline personality disorder F60.3 [facility] [id number] [place] [address] 75756- 1172 Dec, [facility] [address] [place] [address] 06732- 6137 Dec, [facility] [id number] [place] [address] 40854- 1458 Nov, Acute non-recurrent maxillary sinusitis J01.00 ; Mood disorder F39 and Sciatica, unspecified side M54.30 [place] [id number] [place] [address] 35977- 6969 Nov, Mood disorder F39 ; PTSD (post-traumatic stress disorder) F43.10 and Borderline personality disorder F60.3 [facility] [id number] [place] [address] 23396- 2221 Nov, Anxiety F41.9 and Borderline personality disorder F60.3 [place] [id number] [place] [address] 03941- 9008 Nov, [facility] [id number] [place] [address] 39585- 9395 Nov, Anxiety F41.9 and Sciatica, unspecified side M54.30 [facility] [id number] [place] [address] 65847- 0417 Oct, Anxiety F41.9 [facility] [address] [place] [address] 39162- 6596 Oct, Mood disorder F39 ; PTSD (post-traumatic stress disorder) F43.10 ; Borderline personality disorder F60.3 and High risk medication use Z79.899 [facility] [address] [address] 11 Oct, 2017 Dental caries K02.9 and Dental examination Z01.20 [facility] [id number] [place] [address] 63433- 6756 13 Sep, 2017 Dysuria R30.0 and Abdominal pain, right lower quadrant R10.31 [facility] [id number] [place] [address] 62908- 9374 Aug, Mood disorder F39 ; PTSD (post-traumatic stress disorder) F43.10 and Borderline personality disorder F60.3 [facility] [id number] [place] [address] 77978- 0459 Aug, [facility] [id number] [place] [address] 07993- 1680 Aug, [facility] [id number] [place] [address] 82973- 5673 Aug, Severe episode of recurrent major depressive disorder, with psychotic features F33.3 ; PTSD (post-traumatic stress disorder) F43.10 ; Adjustment disorder with mixed anxiety and depressed mood F43.23 and Borderline personality disorder F60.3 [facility] [id number] [place] [address] 49201- 3355 Aug, Mood disorder F39 ; PTSD (post-traumatic stress disorder) F43.10 and Borderline personality disorder F60.3 [facility] [address] [place] [address] 50265- 1117 Aug, [facility] [id number] [place] [address] 79911- 4331 Aug, Bipolar 1 disorder F31.9 and Schizo affective schizophrenia F25.0 [facility] [id number] [place] [address] 45252- 4775 Aug, Mood disorder F39 [facility] [id number] [place] [address] 68373- 2199 Aug, Bipolar 1 disorder F31.9 and Schizo affective schizophrenia F25.0 [facility] [id number] [place] [address] 91818- 6335 Aug, Bipolar 1 disorder F31.9 and Schizo affective schizophrenia F25.0 [facility] [id number] [place] [address] 60016- 5374 Aug, [facility] [id number] [place] [address] 548044- 4365 Aug, PTSD (post-traumatic stress disorder) F43.10 and Borderline personality disorder F60.3 [facility] [id number] [place] [address] 33065- 9542 Aug, [facility] [id number] [place] [address] 58342- 2902 Aug, Mood disorder F39 ; PTSD (post-traumatic stress disorder) F43.10 ; Borderline personality disorder F60.3 and Adjustment disorder with mixed anxiety and depressed mood F43.23 [facility] [id number] [place] [address] 30872- 7375 Jul, [facility] [id number] [place] [address] 02320- 5539 Jul, Mood disorder F39 ; PTSD (post-traumatic stress disorder) F43.10 and Borderline personality disorder F60.3 [facility] [id number] [place] [address] 30763- 1162 Jul, [facility] [id number] [place] [address] 60058- 7565 Jun, Anxiety F41.9 ; ADHD (attention deficit hyperactivity disorder) F90.9 ; Night terror F51.4 ; Bulimia F50.2 ; Severe episode of recurrent major depressive disorder, with psychotic features F33.3 and PTSD ( post-traumatic stress disorder) F43.10 [facility] [id number] [place] [address] 20208- 3380 Jun, Borderline personality disorder F60.3 ; Mood disorder F39 and PTSD (post-traumatic stress disorder) F43.10 [facility] [address] [place] [address] 93358- 7067 Jun, Anxiety F41.9 [facility] [address] [place] [address] 54620- 8178 Jun, Anxiety F41.9 ; ADHD (attention deficit hyperactivity disorder) F90.9 ; Night terror F51.4 ; Bulimia F50.2 ; Severe episode of recurrent major depressive disorder, with psychotic features F33.3 and PTSD ( post-traumatic stress disorder) F43.10 [facility] [address] [place] [address] 23380- 9025 Jun, ADHD (attention deficit hyperactivity disorder) F90.9 ; Night terror F51.4 ; Bulimia F50.2 ; Anxiety F41.9 ; Severe episode of recurrent major depressive disorder, with psychotic features F33.3 and PTSD ( post-traumatic stress disorder) F43.10 [place] [address] [place] [address] 20621- 0786 May, Anxiety F41.9 [facility] [id number] [place] [address] 95502- 4797 May, PTSD (post-traumatic stress disorder) F43.10 and Borderline personality disorder F60.3 [facility] [address] [place] [address] 58908- 2498 Apr, [facility] [id number] [place] [address] [id number] March, Dental examination Z01.20 and Dental caries K02.9 [facility] [address] [place] [address] 87864- 1821 March, Dental examination Z01.20 [facility] [address] [place] [address] 75335- 8720 March, Tooth abscess K04.7 and Tooth pain K08.89 [facility] [address], [place] [address]- 6609 March, Borderline personality disorder F60.3 [facility] [id number] [place] [address] 00143- 9728 March, ADHD (attention deficit hyperactivity disorder) F90.9 ; Night terror F51.4 ; Bulimia F50.2 and Anxiety F41.9 [facility] [id number] [place] [address] 03860- 0703 Feb, Borderline personality disorder F60.3 ; ADHD (attention deficit hyperactivity disorder) F90.9 ; Anxiety F41.9 ; Bulimia F50.2 ; Obsessive-compulsive disorder, unspecified type F42.9 and Night terror F51.4 [facility] [id number] [place] [address] 04397- 1515 Feb, [facility] [id number] [place] [address] 43400- 9691 Feb, [facility] [id number] [place] [address] 67618- 3553 Jul, [facility] [id number] [place] [address] 62164- 6342 Jul, [facility] [id number] [place] [address] 71345- 1833 Jul, [facility] [id number] [place] [address] 16070- 9763 Jul, [facility] [address] [place] [address] 27598- 4432 Jun, [facility] [id number] [place] [address] 70505- 4930 Jun, [facility] [address] [place] [address] 22431- 6158 Jun, [facility] [id number] [place] [address] 57922- 1630 Jun, [facility] [address] [id number] [place] [address]- 7350 Apr, [facility] [place] [facility] [address] [id number] [place] 1246 Apr, [facility] [place] [facility] [address] [id number] [place] [address]- 7441 March, [facility] [place] [facility] [address] [id number] [place] [address]- 7322 March, [facility] [place] [facility] [address] [id number] [place] [address]- 1994 Jan, [facility] [place] [facility] [address] [id number] [place] [address]- 0877 Jan, [facility] [place] [facility] [address] [id number] [place] [address]- 0563 Jan, [facility] [place] [facility] [address] [id number] [place] [address]- 7900 Jan, [facility] [place] [facility] [address] [id number] [place] [address]- 0246 Jan, [facility] [place] [facility] [address] [id number] [place] [address]- 1000 Dec, [facility] [place] [facility] [address] [id number] [place] [address]- 1997 Dec, [facility] [place] [facility] [address] [id number] [address]- 6357 Oct, [facility] [place] [facility] [address] [id number] [place] 5828 Oct, [facility] [place] [facility] [address] [id number] [place] [address]- 1700 Oct, [facility] [place] [facility] [address] [id number] [place] [address]- 4756 Oct, [facility] [place] [facility] [address] [id number] [place] [address]- 4546 Sep, [facility] [place] [facility] [address] [id number] [place] [address]- 6204 Sep, [facility] [place] [facility] [address] [id number] [place] [address]- 2343 Sep, [facility] [place] [facility] [address] [id number] [place] [address]- 3641 Aug, [facility] [place] [facility] [address] [id number] [place] [address]- 5725 Aug, [facility] [place] [facility] [address] [id number] [place] [address]- 8899 Aug, [facility] [place] [facility] [address] [id number] [place] [address]- 8254 Aug, [facility] [place] [facility] [address] [id number] [place] [address]- 5440 Aug, [facility] [place] [facility] [address] [id number] [place] [address]- 9601 Aug, [facility] [place] [facility] [address] [id number] [place] [address]- 7488 Aug, [facility] [place] [facility] [address] [id number] [place] [address]- 8669 Jul, [facility] [place] [facility] [address] [id number] [place] [address]- 3761 Jun, [facility] [place] [facility] [address] [id number] [place] [address]- 0507 Jun, [facility] [place] [facility] [address] [id number] [place] [address]- 8450 Jun, [facility] [place] [facility] [address] [id number] [place] [address]- 1168 Jun, [facility] [place] [facility] [address] [id number] [place] [address]- 1914 Jun, [facility] [address] [id number] [place] [address]- 4694 Jun, [facility] [address] [id number] [place] [address]- 0695 May, [facility] [address] [id number] [place] [address]- 4641 May, [facility] [address] [id number] [place] [address]- 0986 May, [facility] [address] [id number] [place] [address]- 4506 May, [facility] [address] [id number] [place] [address]- 7044 March, [facility] [address] [id number] [place] [address]- 4506 March, [facility] [place] [facility] [address] [id number] [place] [address]- 7111 March, [facility] [address] [id number] [place] [address]- 0992 Feb, [facility] [place] [facility] [address] [id number] [place] [address]- 3560 Feb, [facility] [place] [facility] [address] [id number] [place] [address]- 5137 Feb, [facility] [place] [facility] [address] [id number] [place] [address]- 3321 Feb, [facility] [place] [facility] [address] [id number] [place] [address]- 5305 Jan, [facility] [place] [facility] [address] [id number] [place] [address]- 0495 Jan, [facility] [place] [facility] [address] [id number] [place] [address]- 2883 Jan, [facility] [place] [facility] [address] [id number] [place] [address]- 5996 27 Dec, 2012 [facility] [address] [id number] [place] [address] 2546 14 Dec, 2012 [facility] [address] [id number] [place] [address] 2546 12 Dec, 2012 [facility] [address] [id number] [place] [address] 2546 05 Dec, 2012 [facility] [address] [id number] [place] [address] 2546 04 Dec, 2012 [facility] [address] [id number] [place] [address]- 5796 31 Nov, 2012 [facility] [address] [id number] [place] [address]- 0476 23 Nov, 2012 [facility] [address] [id number] [place] [address] 2548 Nov, [facility] [address] [id number] [place] [address]- 3405 Nov, [facility] [address] [id number] [place] [address]- 2078 Oct, [facility] [address] [id number] [place] [address] 2541 Oct, [facility] [address] [id number] [place] [address] 2546 Oct, [facility] [address] [id number] [place] [address] 2546 Oct, [facility] [place] [facility] [address] [id number] [place] [address] 2546 Oct, [facility] [address] [id number] [place] [address] 2546 Oct, [facility] [address] [id number] [place] [address]- 6234 Oct, [facility] [place] [facility] [address] [id number] [place] [address]- 5116 Oct, [facility] [place] [facility] [address] [id number] [place] [address]- 5526 Oct, [facility] [place] [facility] [address] [id number] [place] [address]- 4543 Oct, [facility] [place] [facility] [address] [id number] [place] [address]- 5443 Oct, [facility] [place] [facility] [address] [id number] [place] [address]- 5588 Oct, [facility] [place] [facility] [address] [id number] [place] [address]- 3190 Oct, [facility] [place] [facility] [address] [id number] [place] [address]- 0747 Sep, [facility] [place] [facility] [address] [id number] [place] [address]- 0558 Sep, [facility] [place] [facility] [address] [id number] [place] [address]- 6834 Sep, [facility] [place] [facility] [address] [id number] [place] [address]- 5248 Sep, [facility] [place] [facility] [address] [id number] [place] [address]- 5844 Sep, [facility] [place] [facility] [address] [id number] [place] [address]- 5322 Sep, [facility] [place] [facility] [address] [id number] [place] [address]- 7258 Sep, [facility] [place] [facility] [address] [id number] [place] [address]- 3603 Sep, [facility] [place] [facility] [address] [id number] [place] [address]- 7971 Sep, [facility] [place] [facility] [address] [id number], [place] [address]- 4323 Sep, [facility] [place] [facility] [address] [id number] [place] [address]- 8658 Sep, [facility] [place] [facility] [address] [id number] [place] 8[address] Sep, [facility] [place] [facility] [address] [id number] [place] [address] Aug, [facility] [place] [facility] [address] [id number] [place] [address] Aug, [facility] [place] [facility] [address] [id number] [place] [address] Aug, [facility] [place] [facility] [address] [id number] [place] [address] Aug, [facility] [place] [facility] [address] [facility] [id number] [place] [address] Aug, [facility] [place] [facility] [address] [id number], [place] [address] Aug, [facility] [place] [facility] [address] [id number] [place] [address] Aug, [facility] [place] [facility] [address] [facility] [id number], [place] [address] Aug, [facility] [place] [facility] [address] [id number], [place] [address] Aug, [facility] [place] [facility] [address] [id number], [place] [address] Aug, [facility] [place] [facility] [address] [id number], [place] [address] Aug, [facility] [place] [facility] [address] [facility] [id number], [place] [address] Aug, [facility] [place] [facility] [address] [facility] [id number], [place] [address] Jul, [facility] [place] [facility] [address] [id number] [place] [address] 27 Jul, 2011 [facility] [place] [facility] [address] [id number] [place] [address]- [address] 21 Jul, 2011 [facility] [place] [facility] [address] [id number] [place] [address] 10 Jul, 2011 [facility] [place] [facility] [address] [id number] [place] [address] 05 Jul, 2011 [facility] [place] [facility] [address] [id number] [place] [address] 04 Jul, 2011 [facility] [place] [facility] [address] [id number] [place] [address] Jun, [facility] [place] [facility] [address] [id number] [place] [address] Jun, [facility] [place] [facility] [address] [id number] [place] [address]- [address] Jun, [facility] [place] [facility] [address] [id number] [place] [address]- [address] May, [facility] [place] [facility] [address] [id number] [place] [address] May, [facility] [place] [facility] [address] [id number] [place] [address] May, [facility] [place] [facility] [address] [id number] [place] [address]- [address] May, [facility] [place] [facility] [address] [id number] [place] [address] May, [facility] [place] [facility] [address] [id number] [place] [address] 25[address] May, [facility] [place] [facility] [address] [id number] [place] [address] Apr, [facility] [place] [facility] [address] [id number] [place] [address] 23 Feb, 2012 [facility] [address] [id number] [place] [address] 18 Feb, 2012 [facility] [place] [facility] [address] [id number] [place] [address]- [address] 11 Feb, 2012 [facility] [place] [facility] [address] [facility] [id number] [place] [address] 10 Feb, 2012 [facility] [place] [facility] [address] [id number] [place] [address]- [address] 16 Jan, 2012 [facility] [place] [facility] [address] [id number] [place] [address] 12 Jan, 2012 [facility] [facility] [address] [id number] [place] [address] 29 Dec, 2011 [facility] [place] [facility] [address] [id number] [place] [address] 28 Dec, 2011 [facility] [place] [facility] [address] [id number] [place] [address] 21 Dec, 2011 [facility] [place] [facility] [address] [id number] [place] [address] 14 Dec, 2011 [facility] [place] [facility] [address] [id number] [place] [address] 14 Dec, 2011 [facility] [place] [facility] [address] [id number] [place] [address] 13 Dec, 2011 [facility] [place] [facility] [address] [id number] [place] [address] 09 Dec, 2011 [facility] [place] [facility] [address] [id number] [place] [address] 16[address] 07 Dec, 2011 [facility] [place] [facility] [address] [id number] [place] [address] 02 Dec, 2011 [facility] [address] [id number] [place] [address] 30 Nov, 2011 [facility] [address] [id number] [place] [address] Nov, [facility] [address] [id number] [place] [address] Nov, [facility] [place] [facility] [address] [id number] [place] [address] Nov, [facility] [address] [id number] [place] [address] Nov, [facility] [address] [id number] [place] [address] 16 Nov, 2011 [facility] [address] [id number] [place] [address] Nov, [facility] [address] [id number] [place] [address] Nov, [facility] [address] [id number] [place] [address] Nov, [facility] [address] [id number] [place] [address] Oct, [facility] [address] [id number] [place] [address] Oct, [facility] [address] [id number] [place] [address] Oct, [facility] [address] [id number] [place] [address]37 Oct, [facility] [address] [id number] [place] [address] Oct, [facility] [facility] [address] [id number] [place] [address] 7964 Oct, [facility] [address] [id number] [place] [address] Sep, [facility] [facility] [address] [id number] [place] [address] 58[address] 19 Aug, 2011 [facility] [facility] [address] [id number] [place] [address]- 3097 19 Jul, 2011 [facility] [address] [id number] [place] [address]- [address] 17 Nov, 2010 [facility] [place] [facility] [address] [id number] [place] [address]- 4768 10 Nov, 2010 [facility] [address] [id number] [place] [address]- 1291 23 Oct, 2010 [facility] [address] [id number] [place] [address] Sep, [facility] [address] [id number] [place] [address] Sep, [facility] [address] [id number] [place] [address] 2528 18 Aug, 2010 [facility] [address] [id number] [place] [address]- 8569 14 Aug, 2010 [facility] [facility] [address] [id number] [place] [address] 14 Aug, 2010 [facility] [address] [id number] [place] [address] 13 Feb, 2010 [facility] [address] [id number], [place] [address] 10 Dec, 2009 [facility] [address] [id number], [place] [address] 30 Oct, 2009 [facility] [address] [id number] [place] [address] 1296 Oct, [facility] [address] [id number] [place] [address]- [address]113 08 Oct, 2009 [facility] [address] [id number] [place] [address] 8625 Sep, [facility] [address] [id number] [place] [address] Sep, [facility] [address] [id number] [address] Sep, [facility] [address] [id number] [address] [address] Aug, [facility] [address] [id number], [place] [address] Aug, IMMUNIZATIONS No Known Immunizations SOCIAL HISTORY Never Assessed REASON FOR VISIT med refill PLAN OF CARE VITAL SIGNS MEDICATIONS Medication Instructions Dosage Frequency Start Date End Date Duration Status Seroquel 50 MG Orally Three times a day 1-2 tablets 8h Oct, 30 days Active RESULTS No Results PROCEDURES [...] mental health issues x2 [facility] [place] 2016 & 02/2017 Hospitalization History Surgery(s)/Childbirth(s)
--- OUTSIDE RECORDS SUMMARY | 2018-08-03 08:40 | XMS REPORT ---
Author Author ESPERANZA LUCI Organization [facility] Address [address] [place] [address] Care Team Providers Care Subject Scientific Research Name Role Phone GARIMALUCERO REEDA Unavailable PROBLEMS Type Condition ICD9-CM Code EBQ90-GH Code Onset Dates Condition Status SNOMED Code Problem Mood disorder F39 Active 53889932 Problem Schizo affective schizophrenia F25.0 Active 612378464 Problem Adjustment disorder with mixed anxiety and depressed mood F43.23 Active 35476234 Problem Other chronic pain G89.29 Active 05519067 Problem Lumbago with sciatica, right side M54.41 Active 886119991 Problem Sciatica, unspecified side M54.30 Active 88256201 Problem Bipolar 1 disorder F31.9 Active 964987078 Problem Morbid obesity due to excess calories E66.01 Active 446581198 Problem Cannabis use disorder, mild, abuse F12.10 Active 85371891 Problem Night terror F51.4 Active 67290680 Problem Anxiety F41.9 Active 08834830 Problem PTSD (post-traumatic stress disorder) F43.10 Active 68499608 Problem Borderline personality disorder F60.3 Active 57111565 Problem Severe episode of recurrent major depressive disorder, with psychotic features F33.3 Active 43109079 ALLERGIES No Information ENCOUNTERS Encounter Location Date Diagnosis [facility] [id number] [address] May, [facility] [id number] [address] 18 Apr, 2018 BMI 40.0-44.9, adult Z68.41 [facility] [id number] [place] [address] 04644- 6269 14 Apr, 2018 Acute non-recurrent maxillary sinusitis J01.00 [facility] [address] [place] [address] 62733- 5924 Apr, PTSD (post-traumatic stress disorder) F43.10 ; Mood disorder F39 ; Borderline personality disorder F60.3 ; Cannabis use disorder, mild, abuse F12.10 and 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 [facility] [address] [address] Apr, [place] [id number] [place] [address] 47046- 8931 Apr, Annual physical exam Z00.00 and High risk medication use Z79.899 [place] [id number] [place] [address] 59408- 7473 Apr, PTSD (post-traumatic stress disorder) F43.10 [place] [address] [place] [address] 37350- 1095 Apr, [id number] [place] [address] 59855- 3532 March, BMI 40.0-44.9, adult Z68.41 ; Morbid obesity due to excess calories E66.01 ; Lumbago with sciatica, right side M54.41 and Other chronic pain G89.29 [facility] [address] [place] [address] 43413- 2498 March, PTSD (post-traumatic stress disorder) F43.10 [place] [address] [place] [address] 23490- 4425 March, PTSD (post-traumatic stress disorder) F43.10 ; Mood disorder F39 ; Borderline personality disorder F60.3 and Cannabis use disorder, mild, abuse F12.10 [place] [address] [place] [address] 68730- 0946 Feb, [facility] [id number] [place] [address] 48396- 9496 Feb, [facility] [address] [place], [place] [id number] [place] [address] Feb, Breast cancer screening Z12.31 [place] [id number] [place] [address] 68206- 5178 17 Feb, 2018 Mood disorder F39 and PTSD (post-traumatic stress disorder) F43.10 [place] [id number] [place] [address] 24366- 8548 Feb, PTSD (post-traumatic stress disorder) F43.10 ; Mood disorder F39 ; Borderline personality disorder F60.3 and Cannabis use disorder, mild, abuse F12.10 [place] [address] [address]- [address]66 Feb, Schizo affective schizophrenia F25.0 ; Adjustment disorder with mixed anxiety and depressed mood F43.23 ; Night terror F51.4 ; Anxiety F41.9 and Borderline personality disorder F60.[address] [address]- [address] Feb, [place] [address] [address]- [address] Feb, Mood disorder F39 [address] 65644- 4906 Feb, Annual physical exam Z00.00 ; BMI 40.0-44.9, adult Z68.41 and Nipple discharge N64.52 [id number] [place] [address] 56416- 1248 Jan, Schizo affective schizophrenia F25.0 ; Adjustment disorder with mixed anxiety and depressed mood F43.23 ; Night terror F51.4 ; Anxiety F41.9 and Borderline personality disorder F60.[address] 97153- 5894 Jan, Mood disorder F39 ; PTSD (post-traumatic stress disorder) F43.10 ; Borderline personality disorder F60.3 and High risk medication use Z79.899 [place] [address] [address]156- 2918 Dec, Anxiety F41.9 and Borderline personality disorder F60.3 [facility] [address] [place] [address] 32745- 3838 Dec, [facility] [id number] [place] [address] 23894- 2804 Dec, Anxiety F41.9 and Borderline personality disorder F60.3 [facility] [id number] [place] [address] 70664- 6459 Dec, [facility] [address] [place] [address] 67876- 5759 Dec, [facility] [id number] [place] [address] 08232- 3833 Nov, Acute non-recurrent maxillary sinusitis J01.00 ; Mood disorder F39 and Sciatica, unspecified side M54.30 [place] [id number] [place] [address] 14787- 8356 Nov, Mood disorder F39 ; PTSD (post-traumatic stress disorder) F43.10 and Borderline personality disorder F60.3 [facility] [id number] [place] [address] 35977- 7767 Nov, Anxiety F41.9 and Borderline personality disorder F60.3 [place] [id number] [place] [address] 59839- 8848 Nov, [facility] [id number] [place] [address] 69881- 5025 Nov, Anxiety F41.9 and Sciatica, unspecified side M54.30 [facility] [id number] [place] [address] 47451- 3103 Oct, Anxiety F41.9 [facility] [address] [place] [address] 74867- 7382 Oct, Mood disorder F39 ; PTSD (post-traumatic stress disorder) F43.10 ; Borderline personality disorder F60.3 and High risk medication use Z79.899 [facility] [address] [id number] 11 Oct, 2017 Dental caries K02.9 and Dental examination Z01.20 [facility] [id number] [place] [address] 32088- 6232 13 Sep, 2017 Dysuria R30.0 and Abdominal pain, right lower quadrant R10.31 [facility] [id number] [place] [address] 19476- 8791 Aug, Mood disorder F39 ; PTSD (post-traumatic stress disorder) F43.10 and Borderline personality disorder F60.3 [facility] [id number] [place] [address] 76655- 7899 Aug, [facility] [id number] [place] [address] 67525- 3082 Aug, [facility] [id number] [place] [address] 41441- 1877 Aug, Severe episode of recurrent major depressive disorder, with psychotic features F33.3 ; PTSD (post-traumatic stress disorder) F43.10 ; Adjustment disorder with mixed anxiety and depressed mood F43.23 and Borderline personality disorder F60.3 [facility] [id number] [place] [address] 77188- 5306 Aug, Mood disorder F39 ; PTSD (post-traumatic stress disorder) F43.10 and Borderline personality disorder F60.3 [facility] [address] [place] [address] 36082- 8619 Aug, [facility] [id number] [place] [address] 30980- 6943 Aug, Bipolar 1 disorder F31.9 and Schizo affective schizophrenia F25.0 [facility] [id number] [place] [address] 01480- 9998 Aug, Mood disorder F39 [facility] [id number] [place] [address] 90769- 8849 Aug, Bipolar 1 disorder F31.9 and Schizo affective schizophrenia F25.0 [facility] [id number] [place] [address] 61629- 1723 Aug, Bipolar 1 disorder F31.9 and Schizo affective schizophrenia F25.0 [facility] [id number] [place] [address] 35998- 5043 Aug, [facility] [id number] [place] [address] 403353- 8341 Aug, PTSD (post-traumatic stress disorder) F43.10 and Borderline personality disorder F60.3 [facility] [id number] [place] [address] 61504- 7610 Aug, [facility] [id number] [place] [address] 96652- 8342 Aug, Mood disorder F39 ; PTSD (post-traumatic stress disorder) F43.10 ; Borderline personality disorder F60.3 and Adjustment disorder with mixed anxiety and depressed mood F43.23 [facility] [id number] [place] [address] 26607- 1847 Jul, [facility] [id number] [place] [address] 52517- 1121 Jul, Mood disorder F39 ; PTSD (post-traumatic stress disorder) F43.10 and Borderline personality disorder F60.3 [facility] [id number] [place] [address] 82763- 4909 Jul, [facility] [id number] [place] [address] 65064- 4106 Jun, Anxiety F41.9 ; ADHD (attention deficit hyperactivity disorder) F90.9 ; Night terror F51.4 ; Bulimia F50.2 ; Severe episode of recurrent major depressive disorder, with psychotic features F33.3 and PTSD ( post-traumatic stress disorder) F43.10 [facility] [id number] [place] [address] 63067- 7553 Jun, Borderline personality disorder F60.3 ; Mood disorder F39 and PTSD (post-traumatic stress disorder) F43.10 [facility] [address] [place] [address] 20136- 7461 Jun, Anxiety F41.9 [facility] [address] [place] [address] 23364- 5443 Jun, Anxiety F41.9 ; ADHD (attention deficit hyperactivity disorder) F90.9 ; Night terror F51.4 ; Bulimia F50.2 ; Severe episode of recurrent major depressive disorder, with psychotic features F33.3 and PTSD ( post-traumatic stress disorder) F43.10 [facility] [address] [place] [address] 82966- 2879 Jun, ADHD (attention deficit hyperactivity disorder) F90.9 ; Night terror F51.4 ; Bulimia F50.2 ; Anxiety F41.9 ; Severe episode of recurrent major depressive disorder, with psychotic features F33.3 and PTSD ( post-traumatic stress disorder) F43.10 [place] [address] [place] [address] 15336- 3746 May, Anxiety F41.9 [facility] [id number] [place] [address] 70056- 6375 May, PTSD (post-traumatic stress disorder) F43.10 and Borderline personality disorder F60.3 [facility] [address] [place] [address] 41728- 1654 Apr, [facility] [id number] [place] [address] [id number] March, Dental examination Z01.20 and Dental caries K02.9 [facility] [address] [place] [address] 02595- 6735 March, Dental examination Z01.20 [facility] [address] [place] [address] 70542- 0682 March, Tooth abscess K04.7 and Tooth pain K08.89 [facility] [address] [address]- 2195 March, Borderline personality disorder F60.3 [facility] [id number] [place] [address] 29587- 1758 March, ADHD (attention deficit hyperactivity disorder) F90.9 ; Night terror F51.4 ; Bulimia F50.2 and Anxiety F41.9 [facility] [id number] [place] [address] 34548- 7899 Feb, Borderline personality disorder F60.3 ; ADHD (attention deficit hyperactivity disorder) F90.9 ; Anxiety F41.9 ; Bulimia F50.2 ; Obsessive-compulsive disorder, unspecified type F42.9 and Night terror F51.4 [facility] [id number] [place] [address] 18707- 5310 Feb, [facility] [id number] [place] [address] 64646- 5735 Feb, [facility] [id number] [place] [address] 11776- 9285 Jul, [facility] [id number] [place] [address] 16947- 1258 Jul, [facility] [id number] [place] [address] 11566- 3451 Jul, [facility] [id number] [place] [address] 47944- 5613 Jul, [facility] [address] [place] [address] 69236- 1290 Jun, [facility] [id number] [place] [address] 47843- 7832 Jun, [facility] [address] [place] [address] 67589- 6228 Jun, [facility] [id number] [place] [address] 71745- 2107 Jun, [facility] [address] [id number] [place] [address]- 2815 Apr, [facility] [place] [facility] [address] [id number] [place]- 2573 Apr, [facility] [place] [facility] [address] [id number] [place] [address]- 5324 March, [facility] [place] [facility] [address] [id number] [place] [address]- 9051 March, [facility] [place] [facility] [address] [id number] [place] [address]- 6091 Jan, [facility] [place] [facility] [address] [id number] [place] [address]- 2565 Jan, [facility] [place] [facility] [address] [id number] [place] [address]- 9021 Jan, [facility] [place] [facility] [address] [id number] [place] [address]- 0641 Jan, [facility] [place] [facility] [address] [id number] [place] [address]- 8961 Jan, [facility] [place] [facility] [address] [id number] [place] [address]- 2047 Dec, [facility] [place] [facility] [address] [id number] [place] [address]- 4372 Dec, [facility] [place] [facility] [address] [id number] [address]- 1066 Oct, [facility] [place] [facility] [address] [id number] [place] 5725 Oct, [facility] [place] [facility] [address] [id number] [place] [address]- 3783 Oct, [facility] [place] [facility] [address] [id number] [place] [address]- 7897 Oct, [facility] [place] [facility] [address] [id number] [place] [address]- 1822 Sep, [facility] [place] [facility] [address] [id number] [place] [address]- 9801 Sep, [facility] [place] [facility] [address] [id number] [place] [address]- 4626 Sep, [facility] [place] [facility] [address] [id number] [place] [address]- 2077 Aug, [facility] [place] [facility] [address] [id number] [place] [address]- 8380 Aug, [facility] [place] [facility] [address] [id number] [place] [address]- 5344 Aug, [facility] [place] [facility] [address] [id number] [place] [address]- 0907 Aug, [facility] [place] [facility] [address] [id number] [place] [address]- 3924 Aug, [facility] [place] [facility] [address] [id number] [place] [address]- 3464 Aug, [facility] [place] [facility] [address] [id number] [place] [address]- 5698 Aug, [facility] [place] [facility] [address] [id number] [place] [address]- 7599 Jul, [facility] [place] [facility] [address] [id number] [place] [address]- 9398 Jun, [facility] [place] [facility] [address] [id number] [place] [address]- 7948 Jun, [facility] [place] [facility] [address] [id number] [place] [address]- 7263 Jun, [facility] [place] [facility] [address] [id number] [place] [address]- 0208 Jun, [facility] [place] [facility] [address] [id number] [place] [address]- 5038 Jun, [facility] [address] [id number] [place] [address]- 7220 Jun, [facility] [address] [id number] [place] [address]- 7094 May, [facility] [address] [id number] [place] [address]- 0154 May, [facility] [address] [id number] [place] [address]- 8152 May, [facility] [address] [id number] [place] [address]- 1730 May, [facility] [address] [id number] [place] [address]- 6406 March, [facility] [address] [id number] [place] [address]- 2043 March, [facility] [place] [facility] [address] [id number] [place] [address]- 2593 March, [facility] [address] [id number] [place] [address]- 0606 Feb, [facility] [place] [facility] [address] [id number] [place] [address]- 6710 Feb, [facility] [place] [facility] [address] [id number] [place] [address]- 1970 Feb, [facility] [place] [facility] [address] [id number] [place] [address]- 0112 Feb, [facility] [place] [facility] [address] [id number] [place] [address]- 6068 Jan, [facility] [place] [facility] [address] [id number] [place] [address]- 1914 Jan, [facility] [place] [facility] [address] [id number] [place] [address]- 5132 Jan, [facility] [place] [facility] [address] [id number] [place] [address]- 3856 27 Dec, 2012 [facility] [address] [id number] [place] [address] 2546 14 Dec, 2012 [facility] [address] [id number] [place] [address] 2546 12 Dec, 2012 [facility] [address] [id number] [place] [address] 2546 05 Dec, 2012 [facility] [address] [id number] [place] [address] 2546 04 Dec, 2012 [facility] [address] [id number] [place] [address]- 4196 31 Nov, 2012 [facility] [address] [id number] [place] [address]- 8596 23 Nov, 2012 [facility] [address] [id number] [place] [address] 2549 Nov, [facility] [address] [id number] [place] [address]- 5813 Nov, [facility] [address] [id number] [place] [address]- 6784 Oct, [facility] [address] [id number] [place] [address] 2545 Oct, [facility] [address] [id number] [place] [address] 2546 Oct, [facility] [address] [id number] [place] [address] 2546 Oct, [facility] [place] [facility] [address] [id number] [place] [address] 2546 Oct, [facility] [address] [id number] [place] [address] 2546 Oct, [facility] [address] [id number] [place] [address]- 5929 Oct, [facility] [place] [facility] [address] [id number] [place] [address]- 2492 Oct, [facility] [place] [facility] [address] [id number] [place] [address]- 4656 Oct, [facility] [place] [facility] [address] [id number] [place] [address] Oct, [facility] [place] [facility] [address] [id number] [place] [address] Oct, [facility] [place] [facility] [address] [id number] [place] [address] Oct, [facility] [place] [facility] [address] [id number] [place] [address] Oct, [facility] [place] [facility] [address] [id number] [place] [address] Sep, [facility] [place] [facility] [address] [id number] [place] [address] Sep, [facility] [place] [facility] [address] [id number] [place] [address] Sep, [facility] [place] [facility] [address] [id number] [place] [address] Sep, [facility] [place] [facility] [address] [id number] [place] [address] Sep, [facility] [place] [facility] [address] [id number] [place] [address] Sep, [facility] [place] [facility] [address] [id number] [place] [address] Sep, [facility] [place] [facility] [address] [id number] [place] [address] Sep, [facility] [place] [facility] [address] [id number] [place] [address] Sep, [facility] [place] [facility] [address] [id number] [address] Sep, [facility] [place] [facility] [address] [id number] [place] [address] Sep, [facility] [place] [facility] [address] [id number] [place] [address] Sep, [facility] [place] [facility] [address] [id number] [place] [address] Aug, [facility] [place] [facility] [address] [id number] [place] [address] Aug, [facility] [place] [facility] [address] [id number] [place] [address] [address] Aug, [facility] [place] [facility] [address] [id number] [place] [address] Aug, [facility] [place] [facility] [address] [facility] [id number] [place] [address] Aug, [facility] [place] [facility] [address] [id number] [address] Aug, [facility] [place] [facility] [address] [id number] [place] [address] Aug, [facility] [place] [facility] [address] [facility] [id number] [address] Aug, [facility] [place] [facility] [address] [id number] [address] Aug, [facility] [place] [facility] [address] [id number] [place] [address] Aug, [facility] [place] [facility] [address] [id number] [place] [address] Aug, [facility] [place] [facility] [address] [facility] [id number] [place] [address] Aug, [facility] [place] [facility] [address] [facility] [id number] [place] [address] Jul, [facility] [place] [facility] [address] [id number] [place] [address] 27 Jul, 2011 [facility] [place] [facility] [address] [id number] [place] [address] 21 Jul, 2011 [facility] [place] [facility] [address] [id number] [place] [address] 2546 10 Jul, 2011 [facility] [place] [facility] [address] [id number] [place] [address] 2546 05 Jul, 2011 [facility] [place] [facility] [address] [id number] [place] [address]47 04 Jul, 2011 [facility] [place] [facility] [address] [id number] [place] [address] Jun, [facility] [place] [facility] [address] [id number] [place] [address] Jun, [facility] [place] [facility] [address] [id number] [place] [address] Jun, [facility] [place] [facility] [address] [id number] [place] [address] May, [facility] [place] [facility] [address] [id number] [place] [address] May, [facility] [place] [facility] [address] [id number] [place] [address] May, [facility] [place] [facility] [address] [id number] [place] [address] May, [facility] [place] [facility] [address] [id number] [place] [address] May, [facility] [place] [facility] [address] [id number] [place] [address] 2546 May, [facility] [place] [facility] [address] [id number] [place] [address] Apr, [facility] [place] [facility] [address] [id number] [place] [address] 1672 23 Feb, 2012 [facility] [address] [id number] [place] [address]- 8475 18 Feb, 2012 [facility] [place] [facility] [address] [id number] [place] [address]- [address] 11 Feb, 2012 [facility] [place] [facility] [address] [facility] [id number] [place] [address]- [address]286 10 Feb, 2012 [facility] [place] [facility] [address] [id number] [place] [address]- 4794 16 Jan, 2012 [facility] [place] [facility] [address] [id number] [place] [address]- 1747 12 Jan, 2012 [facility] [place] [facility] [address] [facility] [id number] [place] [address]- 0729 29 Dec, 2011 [facility] [place] [facility] [address] [facility] [id number] [place] [address] 9936 28 Dec, 2011 [facility] [place] [facility] [address] [id number] [place] [address] 21 Dec, 2011 [facility] [place] [facility] [address] [id number] [place] [address]- 2487 14 Dec, 2011 [facility] [place] [facility] [address] [facility] [id number] [place] [address]- 6514 14 Dec, 2011 [facility] [place] [facility] [address] [facility] [id number] [place] [address]- 8291 13 Dec, 2011 [facility] [place] [facility] [address] [facility] [id number] [place] [address]- 7246 09 Dec, 2011 [facility] [place] [facility] [address] [facility] [id number] [place] [address]- 7265 07 Dec, 2011 [facility] [place] [facility] [address] [facility] [id number] [place] [address]- 9278 02 Dec, 2011 [facility] [place] [facility] [address] [id number] [place] [address] 30 Nov, 2011 [facility] [place] [facility] [address] [id number] [place] [address]- [address] Nov, [facility] [address] [id number] [place] [address] Nov, [facility] [place] [facility] [address] [id number] [place] [address] 4[address] Nov, [facility] [place] [facility] [address] [id number] [place] [address]- 9608 Nov, [facility] [address] [id number] [place] [address]- 9826 16 Nov, 2011 [facility] [place] [facility] [address] [id number] [place] [address]- 76[address] Nov, [facility] [address] [id number] [place] [address] 99[address] Nov, [facility] [address] [id number] [place] [address] Nov, [facility] [address] [id number] [place] [address] Oct, [facility] [address] [id number] [place] [address] Oct, [facility] [place] [facility] [address] [id number] [place] [address] Oct, [facility] [place] [facility] [address] [id number] [place] [address] 4[address] Oct, [facility] [place] [facility] [address] [id number] [place] [address] 23[address] Oct, [facility] [place] [facility] [address] [id number] [place] [address]- 96[address] Oct, [facility] [place] [facility] [address] [id number] [place] [address] 2867 Sep, [facility] [place] [facility] [address] [id number] [place] [address]- 2026 19 Aug, 2011 [facility] [place] [facility] [address] [id number] [place] [address]- 2895 19 Jul, 2011 [facility] [place] [facility] [address] [id number] [place] [address]- 6146 17 Nov, 2010 [facility] [place] [facility] [address] [id number] [place] [address]- 0082 10 Nov, 2010 [facility] [place] [facility] [address] [id number] [place] [address]- 1555 23 Oct, 2010 [facility] [place] [facility] [address] [id number] [place] [address]- 2034 Sep, [facility] [place] [facility] [address] [id number] [place] [address]- 3369 Sep, [facility] [place] [facility] [address] [id number] [place] [address]- 4926 18 Aug, 2010 [facility] [place] [facility] [address] [id number] [place] [address]- 2853 14 Aug, 2010 [facility] [place] [facility] [address] [id number] [place] [address]- 3616 14 Aug, 2010 [facility] [place] [facility] [address] [id number] [place] [address]- 1300 13 Feb, 2010 [facility] [place] [facility] [address] [id number] [place] [address] 10 Dec, 2009 [facility] [place] [facility] [address] [id number] [place] [address]- 2[address] 30 Oct, 2009 [facility] [place] [facility] [address] [id number] [place] [address]- 9986 Oct, [facility] [place] [facility] [address] [facility] [id number] [place] [address]- 9852 08 Oct, 2009 [facility] [place] [facility] [address] [id number] [place] [address]- 6269 Sep, [facility] [place] [facility] [address] [facility] [id number] [place] [address] Sep, [facility] [address] [facility] [id number] [place] [address] Sep, [facility] [address] [facility] [id number] [place] [address] Aug, [facility] [address] [facility] [id number] [place] [address] Aug, IMMUNIZATIONS No Known Immunizations SOCIAL HISTORY Never Assessed REASON FOR VISIT Medication refill request PLAN OF CARE VITAL SIGNS MEDICATIONS [...] mental health issues x2 Ward Unit in [place] 2016 & 02/2017 Hospitalization History Surgery(s)/Childbirth(s)
--- OUTSIDE RECORDS SUMMARY | 2018-08-03 08:40 | XMS REPORT ---
Author Author RUBEN Barga Organization [facility] Address [address] [place] [address] Care Team Providers Care [facility] Drill Operator Name Role Phone Maria Luz RUBEN Unavailable PROBLEMS Type Condition ICD9-CM Code [id number] Code Onset Dates Condition Status SNOMED Code Problem Mood disorder F39 Active 05051060 Problem Schizo affective schizophrenia F25.0 Active 293030412 Problem Adjustment disorder with mixed anxiety and depressed mood F43.23 Active 09041949 Problem Other chronic pain G89.29 Active 19635149 Problem Lumbago with sciatica, right side M54.41 Active 396262210 Problem Sciatica, unspecified side M54.30 Active 95650009 Problem Bipolar 1 disorder F31.9 Active 441592628 Problem Morbid obesity due to excess calories E66.01 Active 966616188 Problem Cannabis use disorder, mild, abuse F12.10 Active 80877628 Problem Night terror F51.4 Active 18860882 Problem Anxiety F41.9 Active 89119833 Problem PTSD (post-traumatic stress disorder) F43.10 Active 37281658 Problem Borderline personality disorder F60.3 Active 53683590 Problem Severe episode of recurrent major depressive disorder, with psychotic features F33.3 Active 23188103 ALLERGIES No Information ENCOUNTERS Encounter Location Date Diagnosis [facility] [id number] [address] May, [facility] [id number] [address] 18 Apr, 2018 BMI 40.0-44.9, adult Z68.41 [facility] [address] [address] 14 Apr, 2018 Acute non-recurrent maxillary sinusitis J01.00 [facility] [id number] [place] [address] 29330- 5190 Apr, PTSD (post-traumatic stress disorder) F43.10 ; Mood disorder F39 ; Borderline personality disorder F60.3 ; Cannabis use disorder, mild, abuse F12.10 and Other intermediate designer (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 [facility] [address] [address] 08 Apr, 2018 [place] [id number] [place] [address] 18002- 3464 07 Apr, 2018 Annual physical exam Z00.00 and High risk medication use Z79.899 [place] [id number] [place] [address] 83298- 0229 07 Apr, 2018 PTSD (post-traumatic stress disorder) F43.10 [place] [id number] [place] [address] 40478- 0610 Apr, [place] [id number] [place] [address] 65803- 5131 March, BMI 40.0-44.9, adult Z68.41 ; Morbid obesity due to excess calories E66.01 ; Lumbago with sciatica, right side M54.41 and Other chronic pain G89.29 [place] [id number] [place] [address] 52513- 1325 March, PTSD (post-traumatic stress disorder) F43.10 [place] [id number] [place] [address] 46460- 8958 March, PTSD (post-traumatic stress disorder) F43.10 ; Mood disorder F39 ; Borderline personality disorder F60.3 and Cannabis use disorder, mild, abuse F12.10 [place] [id number] [place] [address] 95956- 9410 Feb, [place] [id number] [place] [address] 71710- 0919 Feb, [facility] [address] [place] [id number] [place] [address] 19 Feb, 2018 Breast cancer screening Z12.31 [place] [id number] [place] [address] 12987- 5975 17 Feb, 2018 Mood disorder F39 and PTSD (post-traumatic stress disorder) F43.10 [place] [id number] [place] [address] 58040- 6609 Feb, PTSD (post-traumatic stress disorder) F43.10 ; Mood disorder F39 ; Borderline personality disorder F60.3 and Cannabis use disorder, mild, abuse F12.10 [place] [id number] [place] [address] 25257- 8955 Feb, Schizo affective schizophrenia F25.0 ; Adjustment disorder with mixed anxiety and depressed mood F43.23 ; Night terror F51.4 ; Anxiety F41.9 and Borderline personality disorder F60.3 [place] [address] [address]- 7469 Feb, [place] [id number] [place] [address] 52952- 1500 Feb, Mood disorder F39 [address] [address]- [address] Feb, Annual physical exam Z00.00 ; BMI 40.0-44.9, adult Z68.41 and Nipple discharge N64.52 [id number] [place] [address] 34877- 6261 Jan, Schizo affective schizophrenia F25.0 ; Adjustment disorder with mixed anxiety and depressed mood F43.23 ; Night terror F51.4 ; Anxiety F41.9 and Borderline personality disorder F60.3 [id number] [place] [address] 28025- 3588 Jan, Mood disorder F39 ; PTSD (post-traumatic stress disorder) F43.10 ; Borderline personality disorder F60.3 and High risk medication use Z79.899 [place] [address] [address]131- 3585 Dec, Anxiety F41.9 and Borderline personality disorder F60.3 [facility] [id number] [place] [address] 49994- 7737 Dec, [facility] [id number] [place] [address] 97537- 3773 Dec, Anxiety F41.9 and Borderline personality disorder F60.3 [place] [id number] [place] [address] 56103- 1129 Dec, [facility] [id number] [place] [address] 48520- 2161 Dec, [facility] [id number] [place] [address] 85806- 0524 Nov, Acute non-recurrent maxillary sinusitis J01.00 ; Mood disorder F39 and Sciatica, unspecified side M54.30 [place] [id number] [place] [address] 35452- 9838 Nov, Mood disorder F39 ; PTSD (post-traumatic stress disorder) F43.10 and Borderline personality disorder F60.3 [place] [id number] [place] [address] 22704- 0537 Nov, Anxiety F41.9 and Borderline personality disorder F60.3 [place] [id number] [place] [address] 79066- 1890 Nov, [facility] [id number] [place] [address] 93124- 5673 Nov, Anxiety F41.9 and Sciatica, unspecified side M54.30 [facility] [id number] [place] [address] 91881- 7097 Oct, Anxiety F41.9 [facility] [id number] [place] [address] 49509- 6625 Oct, Mood disorder F39 ; PTSD (post-traumatic stress disorder) F43.10 ; Borderline personality disorder F60.3 and High risk medication use Z79.899 [facility] [address] [id number] 11 Oct, 2017 Dental caries K02.9 and Dental examination Z01.20 [facility] [address] [place] [address] 40310- 1671 13 Sep, 2017 Dysuria R30.0 and Abdominal pain, right lower quadrant R10.31 [facility] [id number] [place] [address] 66858- 5658 Aug, Mood disorder F39 ; PTSD (post-traumatic stress disorder) F43.10 and Borderline personality disorder F60.3 [facility] [id number] [place] [address] 90478- 5801 Aug, [facility] [id number] [place] [address] 52687- 2768 Aug, [facility] [id number] [place] [address] 88464- 0739 Aug, Severe episode of recurrent major depressive disorder, with psychotic features F33.3 ; PTSD (post-traumatic stress disorder) F43.10 ; Adjustment disorder with mixed anxiety and depressed mood F43.23 and Borderline personality disorder F60.3 [facility] [address] [place] [address] 74901- 9728 Aug, Mood disorder F39 ; PTSD (post-traumatic stress disorder) F43.10 and Borderline personality disorder F60.3 [facility] [address] [address]- 0615 Aug, [facility] [id number] [place] [address] 49762- 0773 Aug, Bipolar 1 disorder F31.9 and Schizo affective schizophrenia F25.0 [facility] [address] [place] [address] 14884- 5230 Aug, Mood disorder F39 [facility] [id number] [place] [address] 98764- 3415 Aug, Bipolar 1 disorder F31.9 and Schizo affective schizophrenia F25.0 [facility] [id number] [place] [address] 12556- 5190 Aug, Bipolar 1 disorder F31.9 and Schizo affective schizophrenia F25.0 [facility] [id number] [place] [address] 00631- 3221 Aug, [facility] [id number] [place] [address] 55299- 2060 Aug, PTSD (post-traumatic stress disorder) F43.10 and Borderline personality disorder F60.3 [place] [id number] [place] [address] 55291- 7923 Aug, [place] [id number] [place] [address] 53898- 5924 Aug, Mood disorder F39 ; PTSD (post-traumatic stress disorder) F43.10 ; Borderline personality disorder F60.3 and Adjustment disorder with mixed anxiety and depressed mood F43.23 [place] [id number] [place] [address] 90697- 0180 Jul, [place] [id number] [place] [address] 81865- 4406 Jul, Mood disorder F39 ; PTSD (post-traumatic stress disorder) F43.10 and Borderline personality disorder F60.3 [facility] [id number] [place] [address] 11465- 9268 Jul, [facility] [address] [place] [address] 60995- 4487 Jun, Anxiety F41.9 ; ADHD (attention deficit hyperactivity disorder) F90.9 ; Night terror F51.4 ; Bulimia F50.2 ; Severe episode of recurrent major depressive disorder, with psychotic features F33.3 and PTSD ( post-traumatic stress disorder) F43.10 [facility] [id number] [place] [address] 06634- 8336 Jun, Borderline personality disorder F60.3 ; Mood disorder F39 and PTSD (post-traumatic stress disorder) F43.10 [facility] [address] [place] [address] 49609- 2523 Jun, Anxiety F41.9 [facility] [id number] [place] [address] 80293- 9173 Jun, Anxiety F41.9 ; ADHD (attention deficit hyperactivity disorder) F90.9 ; Night terror F51.4 ; Bulimia F50.2 ; Severe episode of recurrent major depressive disorder, with psychotic features F33.3 and PTSD ( post-traumatic stress disorder) F43.10 [facility] [id number] [place] [address] 54822- 0821 Jun, ADHD (attention deficit hyperactivity disorder) F90.9 ; Night terror F51.4 ; Bulimia F50.2 ; Anxiety F41.9 ; Severe episode of recurrent major depressive disorder, with psychotic features F33.3 and PTSD ( post-traumatic stress disorder) F43.10 [facility] [address] [place] [address] 73767- 2624 May, Anxiety F41.9 [facility] [id number] [place] [address] 50360- 7854 May, PTSD (post-traumatic stress disorder) F43.10 and Borderline personality disorder F60.3 [facility] [address] [place] [address] 68290- 6554 Apr, [facility] [id number] [place] [address] [id number] March, Dental examination Z01.20 and Dental caries K02.9 [facility] [id number] [place] [address] 27068- 8484 March, Dental examination Z01.20 [facility] [id number] [place] [address] 94968- 8926 March, Tooth abscess K04.7 and Tooth pain K08.89 [facility] [id number] [place] [address] 15069- 2486 March, Borderline personality disorder F60.3 [facility] [id number] [place] [address] 55887- 4890 March, ADHD (attention deficit hyperactivity disorder) F90.9 ; Night terror F51.4 ; Bulimia F50.2 and Anxiety F41.9 [facility] [address] 13139- 5631 Feb, Borderline personality disorder F60.3 ; ADHD (attention deficit hyperactivity disorder) F90.9 ; Anxiety F41.9 ; Bulimia F50.2 ; Obsessive-compulsive disorder, unspecified type F42.9 and Night terror F51.4 [facility] [id number] [place] [address] 93175- 1414 Feb, [facility] [address] 28018- 7490 Feb, [facility] [id number] [place] [address] 59284- 8853 Jul, [facility] [id number] [place] [address] 29698- 5351 Jul, [facility] [id number] [place] [address] 00323- 7348 Jul, [facility] [id number] [place] [address] 60140- 7371 Jul, [facility] [id number] [place] [address] 87073- 6953 Jun, [facility] [id number] [place] [address] 91419- 1295 Jun, [facility] [id number] [place] [address] 05675- 0628 Jun, [facility] [address] [place] [address]- 6778 Jun, [facility] [place] [facility] [address] [id number] [place] [address]- 6991 Apr, [facility] [place] [facility] [address] [id number] [place] 2270 Apr, [facility] [place] [facility] [address] [id number] [place] [address]- 1107 March, [facility] [place] [facility] [address] [id number] [place] [address]- 9997 March, [facility] [place] [facility] [address] [id number] [place] [address]- 0613 Jan, [facility] [place] [facility] [address] [id number] [place] [address]- 1458 Jan, [facility] [place] [facility] [address] [id number] [place] [address]- 5507 Jan, [facility] [place] [facility] [address] [id number] [place] [address]- 0021 Jan, [facility] [place] [facility] [address] [id number] [place] [address]- 5891 Jan, [facility] [place] [facility] [address] [id number] [place] [address]- 3286 Dec, [facility] [place] [facility] [address] [id number] [place] [address]- 1893 Dec, [facility] [place] [facility] [address] [id number] [place] 5421 Oct, [facility] [place] [facility] [address] [id number] [place] [address]- 0903 Oct, [facility] [place] [facility] [address] [id number] [place] [address]- 7116 Oct, [facility] [place] [facility] [address] [id number] [place] [address]- 9769 Oct, [facility] [place] [facility] [address] [id number] [place] [address]- 5593 Sep, [facility] [place] [facility] [address] [id number] [place] [address]- 2152 Sep, [facility] [place] [facility] [address] [id number] [place] [address]- 6137 Sep, [facility] [place] [facility] [address] [id number] [place] [address]- 1833 Aug, [facility] [place] [facility] [address] [id number] [place] [address]- 5609 Aug, [facility] [place] [facility] [address] [id number] [place] [address]- 2315 Aug, [facility] [place] [facility] [address] [id number] [place] [address]- 6665 Aug, [facility] [place] [facility] [address] [id number] [place] [address]- 8640 Aug, [facility] [place] [facility] [address] [id number] [place] [address]- 3101 Aug, [facility] [place] [facility] [address] [id number] [place] [address]- 7929 Aug, [facility] [place] [facility] [address] [id number] [place] [address]- 3658 Jul, [facility] [place] [facility] [address] [id number] [place] [address]- 6256 Jun, [facility] [place] [facility] [address] [id number] [place] [address]- 7333 Jun, [facility] [place] [facility] [address] [id number] [place] [address]- 8767 Jun, [facility] [place] [facility] [address] [id number] [place] [address]- 9290 Jun, [facility] [place] [facility] [address] [id number] [place] [address]- 5505 Jun, [facility] [address] [id number] [place] [address]- 0190 Jun, [facility] [place] [facility] [address] [id number] [place] [address]- 8961 May, [facility] [place] [facility] [address] [id number] [place] [address]- 2045 May, [facility] [place] [facility] [address] [id number] [place] [address]- 2084 May, [facility] [address] [id number] [place] [address]- 3216 May, [facility] [address] [id number] [place] [address]- 5968 March, [facility] [address] [id number] [place] [address]- 5524 March, [facility] [place] [facility] [address] [id number] [place] [address]- 3117 March, [facility] [address] [id number] [place] [address]- 2782 Feb, [facility] [place] [facility] [address] [id number] [place] [address]- 8815 Feb, [facility] [place] [facility] [address] [id number] [place] [address]- 8181 Feb, [facility] [place] [facility] [address] [id number] [place] [address]- 6470 Feb, [facility] [place] [facility] [address] [id number] [place] [address]- 2963 Jan, [facility] [place] [facility] [address] [id number] [place] [address]- 2811 Jan, [facility] [place] [facility] [address] [id number] [place] [address]- 7765 Jan, [facility] [place] [facility] [address] [id number] [place] [address]- 7856 27 Dec, 2012 [facility] [address] [id number] [place] [address]- 7956 14 Dec, 2012 [facility] [place] [facility] [address] [id number] [place] [address] 2546 12 Dec, 2012 [facility] [address] [id number] [place] [address] 2546 05 Dec, 2012 [facility] [place] [facility] [address] [id number] [place] [address] 2546 04 Dec, 2012 [facility] [address] [id number] [place] [address]- 5036 Nov, [facility] [address] [id number] [place] [address]- 7715 Nov, [facility] [address] [id number] [place] [address]- 8606 Nov, [facility] [address] [id number] [place] [address]- 1983 Nov, [facility] [address] [id number] [place] [address]- 3907 Oct, [facility] [address] [id number] [place] [address] 2546 Oct, [facility] [address] [id number] [place] [address] 2546 Oct, [facility] [place] [facility] [address] [id number] [place] [address] 2546 Oct, [facility] [place] [facility] [address] [id number] [place] [address] 2546 Oct, [facility] [place] [facility] [address] [id number] [place] [address] 2546 Oct, [facility] [place] [facility] [address] [id number] [place] [address]- 4415 Oct, [facility] [place] [facility] [address] [id number] [place] [address]- 4842 Oct, [facility] [place] [facility] [address] [id number] [place] [address]- 2566 Oct, [facility] [place] [facility] [address] [facility] [id number] [place] [address]- 0126 Oct, [facility] [place] [facility] [address] [id number] [place] [address]- 1237 Oct, [facility] [place] [facility] [address] [id number] [place] [address]- 8431 Oct, [facility] [place] [facility] [address] [id number] [place] [address]- 5542 Oct, [facility] [place] [facility] [address] [id number] [place] [address]- 5100 Sep, [facility] [place] [facility] [address] [id number] [place] [address]- 5579 Sep, [facility] [place] [facility] [address] [id number] [place] [address]- 2305 Sep, [facility] [place] [facility] [address] [id number] [place] [address]- 3304 Sep, [facility] [place] [facility] [address] [id number] [place] [address]- 1509 Sep, [facility] [place] [facility] [address] [id number] [place] [address]- 1792 Sep, [facility] [place] [facility] [address] [id number] [place] [address]- 4209 Sep, [facility] [place] [facility] [address] [id number] [place] [address]- 4516 Sep, [facility] [place] [facility] [address] [facility] [id number] [place] [address]- 0661 Sep, [facility] [place] [facility] [address] [id number] [place] [address]- 0467 Sep, [facility] [place] [facility] [address] [id number] [place] [address] Sep, [facility] [place] [facility] [address] [id number] [id number] [address] Sep, [facility] [place] [facility] [address] [id number] [place] [address] Aug, [facility] [place] [facility] [address] [id number] [place] [address] Aug, [facility] [place] [facility] [address] [id number] [place] [id number] Aug, [facility] [place] [facility] [address] [id number] [place] [address] Aug, [facility] [place] [facility] [address] [id number] [place] [address] Aug, [facility] [place] [facility] [address] [id number] [place] [address] Aug, [facility] [place] [facility] [address] [id number] [place] [address] Aug, [facility] [place] [facility] [address] [facility] [id number] [place] [address]- [address] Aug, [facility] [place] [facility] [address] [id number] [place] [address] Aug, [facility] [place] [facility] [address] [id number] [address] Aug, [facility] [place] [facility] [address] [id number] [place] [address] Aug, [facility] [place] [facility] [address] [facility] [id number] [place] [address] Aug, [facility] [place] [facility] [address] [id number] [place] [address] Jul, [facility] [place] [facility] [address] [id number] [place] [address] 27 Jul, 2011 [facility] [place] [facility] [address] [id number] [place] [address] 21 Jul, 2012 [facility] [place] [facility] [address] [id number] [place] [address] 10 Jul, 2012 [facility] [place] [facility] [address] [id number] [place] [address]- [address] 05 Jul, 2012 [facility] [place] [facility] [address] [id number] [place] [address]- [address] 04 Jul, 2012 [facility] [place] [facility] [address] [id number] [place] [address] Jun, [facility] [place] [facility] [address] [id number] [place] [address] Jun, [facility] [place] [facility] [address] [id number] [place] [address]- [address] Jun, [facility] [place] [facility] [address] [id number] [place] [address] May, [facility] [place] [facility] [address] [id number] [place] [address]- [address] May, [facility] [place] [facility] [address] [id number] [place] [address] May, [facility] [place] [facility] [address] [id number] [place] [address]- [address] May, [facility] [place] [facility] [address] [id number] [place] [id number] May, [facility] [place] [facility] [address] [id number] [place] [address] May, [facility] [place] [facility] [address] [id number] [place] [address] Apr, [facility] [place] [facility] [address] [id number] [place] [address] 23 Feb, 2012 [facility] [place] [facility] [address] [id number] [place] [address] 18 Feb, 2012 [facility] [place] [facility] [address] [id number] [place] [address]286 11 Feb, 2012 [facility] [place] [facility] [address] [facility] [id number] [place] [address] 10 Feb, 2012 [facility] [place] [facility] [address] [id number] [place] [address] 16 Jan, 2012 [facility] [place] [facility] [address] [id number] [place] [address] 12 Jan, 2012 [facility] [place] [facility] [address] [id number] [place] [address] 29 Dec, 2011 [facility] [place] [facility] [address] [id number] [place] [address] 28 Dec, 2011 [facility] [place] [facility] [address] [facility] [id number] [place] [address] 21 Dec, 2011 [facility] [place] [facility] [address] [facility] [id number] [place] [address] 14 Dec, 2011 [facility] [place] [facility] [address] [facility] [id number] [place] [address] 1047 14 Dec, 2011 [facility] [place] [facility] [address] [id number] [place] [address] 13 Dec, 2011 [facility] [place] [facility] [address] [facility] [id number] [place] [address] 94[address] 09 Dec, 2011 [facility] [place] [facility] [address] [facility] [id number] [place] [address] 07 Dec, 2011 [facility] [place] [facility] [address] [facility] [id number] [place] [address] 02 Dec, 2011 [facility] [place] [facility] [address] [facility] [id number] [place] [address]- [address] 30 Nov, 2011 [facility] [place] [facility] [address] [id number] [place] [address] Nov, [facility] [address] [id number] [place] [address] Nov, [facility] [address] [id number] [place] [address] Nov, [facility] [place] [facility] [address] [id number] [place] [address]- [address] Nov, [facility] [address] [id number] [place] [address]- 6430 Nov, [facility] [address] [id number] [place] [address]- 117[address] Nov, [facility] [address] [id number] [place] [address] 6[address] Nov, [facility] [address] [id number] [place] [address]- 8[address] Nov, [facility] [address] [id number] [place] [address] Oct, [facility] [address] [id number] [place] [address] Oct, [facility] [place] [facility] [address] [id number] [place] [address] 39[address] Oct, [facility] [place] [facility] [address] [id number] [place] [address] Oct, [facility] [place] [facility] [address] [id number] [place] [address] Oct, [facility] [place] [facility] [address] [id number] [place] [address] 32[address] Oct, [facility] [place] [facility] [address] [id number] [place] [address] Sep, [facility] [place] [facility] [address] [id number] [place] [address] 19 Aug, 2011 [facility] [address] [id number] [place] [address] 9858 19 Jul, 2011 [facility] [place] [facility] [address] [id number] [place] [address]- 7826 17 Nov, 2010 [facility] [place] [facility] [address] [facility] [id number] [place] [address]- 89[address] 10 Nov, 2010 [facility] [place] [facility] [address] [id number] [place] [address]- [address]237 23 Oct, 2010 [facility] [place] [facility] [address] [id number] [place] [address]- 69[address] 10 Sep, 2010 [facility] [place] [facility] [address] [facility] [id number] [place] [address]- [address] Sep, [facility] [place] [facility] [address] [facility] [id number] [place] [address]- 9186 18 Aug, 2010 [facility] [place] [facility] [address] [facility] [id number] [place] [address]- 8540 14 Aug, 2010 [facility] [place] [facility] [address] [facility] [id number] [place] [address]- 7000 14 Aug, 2010 [facility] [place] [facility] [address] [facility] [id number] [place] [address]- 3879 13 Feb, 2010 [facility] [place] [facility] [address] [facility] [id number] [place] [address] 10 Dec, 2009 [facility] [place] [facility] [address] [id number] [place] [address]- 1787 30 Oct, 2009 [facility] [place] [facility] [address] [id number] [place] [address]- 8535 Oct, [facility] [place] [facility] [address] [facility] [id number] [place] [address]- 7253 08 Oct, 2009 [facility] [place] [facility] [address] [facility] [id number] [place] [address]- 2753 20 Sep, 2009 [facility] [place] [facility] [address] [facility] [id number] [place] [address] Sep, [facility] [address] [facility] [id number] [place] [address] Sep, [facility] [address] [facility] [id number] [place] [address] Aug, [facility] [address] [facility] [id number] [place] [address] Aug, IMMUNIZATIONS No Known Immunizations SOCIAL HISTORY Never Assessed REASON FOR VISIT f/u PLAN OF CARE Activity Details Follow Up 3 Weeks Reason:anxiety, depression VITAL SIGNS MEDICATIONS Unknown Medications RESULTS No Results PROCEDURES Procedure Date Ordered Result Body Site Psychotherapy, patient &/family, 45 minutes, established patient Dec 21, 2017 INSTRUCTIONS MEDICATIONS ADMINISTERED No Known Medications [...] mental health issues x2 Ward Unit in [place] 2016 & 02/2017 Hospitalization History Surgery(s)/Childbirth(s)
--- OUTSIDE RECORDS SUMMARY | 2018-08-03 08:41 | XMS REPORT ---
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01 Active 705958143 Problem Cannabis use disorder, mild, abuse F12.10 Active 67539498 Problem Night terror F51.4 Active 99006755 Problem Anxiety F41.9 Active 99172508 Problem PTSD (post-traumatic stress disorder) F43.10 Active 51953098 Problem Borderline personality disorder F60.3 Active 67548866 Problem Severe episode of recurrent major depressive disorder, with psychotic features F33.3 Active 81602017 ALLERGIES Substance Reaction Event Type Date Status Pseudoephedrine HCl ER unknown Drug Allergy Nov, Active Phenytoin rash Drug Allergy Nov, Active Penicillamine anaphylaxis Drug Allergy Nov, Active Cephalexin anaphylaxis Drug Allergy Nov, Active Albuterol unknown Drug Allergy Nov, Active ENCOUNTERS Encounter Location Date Diagnosis [facility] [address] [facility] [id number] [address] May, [facility] [address] [id number] [address] Apr, BMI 40.0-44.9, adult Z68.41 [facility] [id number] [place] [address] 09883- 6629 14 Apr, 2018 Acute non-recurrent maxillary sinusitis J01.00 [place] [id number] [place] [address] 97973- 4665 11 Apr, 2018 PTSD (post-traumatic stress disorder) F43.10 ; Mood disorder F39 ; Borderline personality disorder F60.3 ; Cannabis use disorder, mild, abuse F12.10 and Other emt intermediate (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 [place] [id number] [place] [address] 10948- 3642 08 Apr, 2018 [place] [id number] [place] [address] 02687- 3732 07 Apr, 2018 Annual physical exam Z00.00 and High risk medication use Z79.899 [place] [id number] [place] [address] 45159- 9243 07 Apr, 2018 PTSD (post-traumatic stress disorder) F43.10 [place] [id number] [place] [address] 11050- 7236 Apr, [place] [id number] [place] [address] 26269- 5083 March, BMI 40.0-44.9, adult Z68.41 ; Morbid obesity due to excess calories E66.01 ; Lumbago with sciatica, right side M54.41 and Other chronic pain G89.29 [place] [id number] [place] [address] 12186- 2332 March, PTSD (post-traumatic stress disorder) F43.10 [place] [address] [address] March, PTSD (post-traumatic stress disorder) F43.10 ; Mood disorder F39 ; Borderline personality disorder F60.3 and Cannabis use disorder, mild, abuse F12.10 [place] [address] [place] [address] 00978- 1511 Feb, [place] [address] [id number] [address] Feb, [facility] [id number] [place] [address] Feb, Breast cancer screening Z12.31 [place] [address] [place] [address] 05893- 3212 Feb, Mood disorder F39 and PTSD (post-traumatic stress disorder) F43.10 [place] [address] [place] [address] 08249- 5271 Feb, PTSD (post-traumatic stress disorder) F43.10 ; Mood disorder F39 ; Borderline personality disorder F60.3 and Cannabis use disorder, mild, abuse F12.10 [place] [address] [address] Feb, Schizo affective schizophrenia F25.0 ; Adjustment disorder with mixed anxiety and depressed mood F43.23 ; Night terror F51.4 ; Anxiety F41.9 and Borderline personality disorder F60.3 [place] [address], [place] [address] Feb, [place] [address] [place] [address] 43453- 1711 Feb, Mood disorder F39 [address], [place] [address] Feb, Annual physical exam Z00.00 ; BMI 40.0-44.9, adult Z68.41 and Nipple discharge N64.52 [address] [address] Jan, Schizo affective schizophrenia F25.0 ; Adjustment disorder with mixed anxiety and depressed mood F43.23 ; Night terror F51.4 ; Anxiety F41.9 and Borderline personality disorder F60.3 [place] [address] [address] Jan, Mood disorder F39 ; PTSD (post-traumatic stress disorder) F43.10 ; Borderline personality disorder F60.3 and High risk medication use Z79.899 [facility] [address] [address]- 9573 Dec, Anxiety F41.9 and Borderline personality disorder F60.3 [facility] [address] [address]77- 34[address] Dec, [facility] [address] 862937- 9966 Dec, Anxiety F41.9 and Borderline personality disorder F60.3 [place] [address] 550704- 3947 Dec, [facility] [id number] [place] [address] 48677- 9151 Dec, [facility] [address] [address]251- 3646 Nov, Acute non-recurrent maxillary sinusitis J01.00 ; Mood disorder F39 and Sciatica, unspecified side M54.30 [place] [address] [address]168- 6841 Nov, Mood disorder F39 ; PTSD (post-traumatic stress disorder) F43.10 and Borderline personality disorder F60.3 [place] [id number] [place] [address] 49944- 0944 Nov, Anxiety F41.9 and Borderline personality disorder F60.3 [facility] [id number] [place] [address] 76271- 1538 Nov, [facility] [address] [address]99- 0219 Nov, Anxiety F41.9 and Sciatica, unspecified side M54.30 [facility] [id number] [place] [address] 05767- 5505 Oct, Anxiety F41.9 [place] [address] [place] [address] 51081- 8682 Oct, Mood disorder F39 ; PTSD (post-traumatic stress disorder) F43.10 ; Borderline personality disorder F60.3 and High risk medication use Z79.899 [facility] [address] [place] [address] [id number] 11 Oct, 2017 Dental caries K02.9 and Dental examination Z01.20 [place] [id number] [place] [address] 13958- 7650 13 Sep, 2017 Dysuria R30.0 and Abdominal pain, right lower quadrant R10.31 [place] [address] [address]- 8957 Aug, Mood disorder F39 ; PTSD (post-traumatic stress disorder) F43.10 and Borderline personality disorder F60.3 [place] [address] 68715- 6667 Aug, [facility] [id number] [place] [address] 20821- 4067 Aug, [place] [id number] [place] [address] 23416- 0559 Aug, Severe episode of recurrent major depressive disorder, with psychotic features F33.3 ; PTSD (post-traumatic stress disorder) F43.10 ; Adjustment disorder with mixed anxiety and depressed mood F43.23 and Borderline personality disorder F60.3 [facility] [id number] [place] [address] 45152- 8452 Aug, Mood disorder F39 ; PTSD (post-traumatic stress disorder) F43.10 and Borderline personality disorder F60.3 [facility] [id number] [place] [address] 99579- 4326 Aug, [place] [id number] [place] [address] 21416- 7032 Aug, Bipolar 1 disorder F31.9 and Schizo affective schizophrenia F25.0 [facility] [address], [place] [address]- 3552 Aug, Mood disorder F39 [facility] [id number] [place] [address] 14025- 9799 Aug, Bipolar 1 disorder F31.9 and Schizo affective schizophrenia F25.0 [facility] [id number] [place] [address] 41893- 9126 Aug, Bipolar 1 disorder F31.9 and Schizo affective schizophrenia F25.0 [facility] [address] [place] [address] 14017- 6286 Aug, [facility] [id number] [place] [address] 40031- 9917 Aug, PTSD (post-traumatic stress disorder) F43.10 and Borderline personality disorder F60.3 [place] [id number] [place] [address] 60386- 7146 Aug, [place] [id number] [place] [address] 80391- 0758 Aug, Mood disorder F39 ; PTSD (post-traumatic stress disorder) F43.10 ; Borderline personality disorder F60.3 and Adjustment disorder with mixed anxiety and depressed mood F43.23 [place] [id number] [place] [address] 32596- 6801 Jul, [facility] [id number] [place] [address] 34076- 0264 Jul, Mood disorder F39 ; PTSD (post-traumatic stress disorder) F43.10 and Borderline personality disorder F60.3 [place] [id number] [place] [address] 27917- 5120 Jul, [facility] [id number] [place] [address] 04057- 1195 Jun, Anxiety F41.9 ; ADHD (attention deficit hyperactivity disorder) F90.9 ; Night terror F51.4 ; Bulimia F50.2 ; Severe episode of recurrent major depressive disorder, with psychotic features F33.3 and PTSD ( post-traumatic stress disorder) F43.10 [facility] [address] [place] [address] 68701- 3651 Jun, Borderline personality disorder F60.3 ; Mood disorder F39 and PTSD (post-traumatic stress disorder) F43.10 [facility] [id number] [place] [address] 16451- 4328 Jun, Anxiety F41.9 [facility] [id number] [place] [address] 17247- 9544 Jun, Anxiety F41.9 ; ADHD (attention deficit hyperactivity disorder) F90.9 ; Night terror F51.4 ; Bulimia F50.2 ; Severe episode of recurrent major depressive disorder, with psychotic features F33.3 and PTSD ( post-traumatic stress disorder) F43.10 [facility] [id number] [place] [address] 66771- 1247 Jun, ADHD (attention deficit hyperactivity disorder) F90.9 ; Night terror F51.4 ; Bulimia F50.2 ; Anxiety F41.9 ; Severe episode of recurrent major depressive disorder, with psychotic features F33.3 and PTSD ( post-traumatic stress disorder) F43.10 [place] [address] [place] [address] 74309- 6429 May, Anxiety F41.9 [facility] [id number] [place] [address] 74451- 3834 May, PTSD (post-traumatic stress disorder) F43.10 and Borderline personality disorder F60.3 [facility] [id number] [place] [address] 38320- 4334 Apr, [facility] [address] [place] [address] [id number] March, Dental examination Z01.20 and Dental caries K02.9 [facility] [id number] [place] [address] 40535- 1213 March, Dental examination Z01.20 [facility] [id number] [place] [address] 21057- 5550 March, Tooth abscess K04.7 and Tooth pain K08.89 [facility] [id number] [place] [address] 27668- 5206 March, Borderline personality disorder F60.3 [facility] [address] 80006- 0579 March, ADHD (attention deficit hyperactivity disorder) F90.9 ; Night terror F51.4 ; Bulimia F50.2 and Anxiety F41.9 [facility] [id number] [place] [address] 59113- 4319 Feb, Borderline personality disorder F60.3 ; ADHD (attention deficit hyperactivity disorder) F90.9 ; Anxiety F41.9 ; Bulimia F50.2 ; Obsessive-compulsive disorder, unspecified type F42.9 and Night terror F51.4 [facility] [id number] [place] [address] 71141- 8003 Feb, [facility] [address] 29242- 9956 Feb, [facility] [id number] [place] [address] 68324- 5283 Jul, [facility] [id number] [place] [address] 44155- 2480 Jul, [facility] [id number] [place] [address] 79201- 3714 Jul, [facility] [id number] [place] [address] 88261- 5300 Jul, [facility] [id number] [place] [address] 65730- 3867 Jun, [facility] [id number] [place] [address] 54626- 0127 Jun, [facility] [place] [facility] [address] [id number] [place] [address]- 0062 Jun, [facility] [place] [facility] [address] [id number] [place] [address]- 1968 Jun, [facility] [place] [facility] [address] [id number] [place] [address]- 5650 Apr, [facility] [place] [facility] [address] [id number] [place] [address]- 8512 Apr, [facility] [place] [facility] [address] [id number] [place] [address]- 1035 March, [facility] [place] [facility] [address] [id number] [place] [address]- 9735 March, [facility] [place] [facility] [address] [id number] [place] [address]- 7191 Jan, [facility] [place] [facility] [address] [id number] [place] [address]- 8107 Jan, [facility] [place] [facility] [address] [id number] [place] [address]- 5071 Jan, [facility] [place] [facility] [address] [id number] [place] [address]- 5899 Jan, [facility] [place] [facility] [address] [id number] [place] [address]- 0794 Jan, [facility] [place] [facility] [address] [id number] [place] [address]- 7648 Dec, [facility] [place] [facility] [address] [id number] [place] [address]- 9471 Dec, [facility] [place] [facility] [address] [id number] [place] [address]- 4036 Oct, [facility] [place] [facility] [address] [id number] [place] [address]- 9725 Oct, [facility] [place] [facility] [address] [id number] [place] [address]- 9181 Oct, [facility] [place] [facility] [address] [id number] [place] [address]- 5265 Oct, [facility] [place] [facility] [address] [id number] [place] [address]- 7184 Sep, [facility] [place] [facility] [address] [id number] [place] [address]- 1439 Sep, [facility] [place] [facility] [address] [id number] [place] [address]- 3393 Sep, [facility] [place] [facility] [address] [id number] [place] [address]- 3175 Aug, [facility] [place] [facility] [address] [id number] [place] [address]- 1609 Aug, [facility] [place] [facility] [address] [id number] [place] [address]- 3728 Aug, [facility] [place] [facility] [address] [id number] [place] [address]- 2786 Aug, [facility] [place] [facility] [address] [id number] [place] [address]- 9231 Aug, [facility] [place] [facility] [address] [id number] [place] [address]- 5527 Aug, [facility] [place] [facility] [address] [id number] [place] [address]- 9041 Aug, [facility] [place] [facility] [address] [id number] [address]- 8820 Jul, [facility] [place] [facility] [address] [id number] [place] [address]- 3167 Jun, [facility] [place] [facility] [address] [id number] [place] [address]- 4204 Jun, [facility] [place] [facility] [address] [id number] [place] [address]- 5042 Jun, [facility] [place] [facility] [address] [id number] [place] [address]- 0767 Jun, [facility] [address] [id number] [place] [address]- 1686 Jun, [facility] [place] [facility] [address] [id number] [place] [address]- 1336 Jun, [facility] [place] [facility] [address] [id number] [place] [address]- 2388 May, [facility] [place] [facility] [address] [id number] [place] [address]- 8225 May, [facility] [place] [facility] [address] [id number] [place] [address]- 7505 May, [facility] [address] [id number] [place] [address]- 3153 May, [facility] [address] [id number] [place] [address]- 4233 March, [facility] [address] [id number] [place] [address]- 1652 March, [facility] [place] [facility] [address] [id number] [place] [address]- 4919 March, [facility] [address] [id number] [place] [address]- 8495 Feb, [facility] [place] [facility] [address] [id number] [place] [address]- 9360 Feb, [facility] [place] [facility] [address] [id number] [place] [address]- 4343 Feb, [facility] [place] [facility] [address] [id number] [place] [address]- 5868 Feb, [facility] [place] [facility] [address] [id number] [place] [address]- 4065 Jan, [facility] [place] [facility] [address] [id number] [place] [address]- 4134 Jan, [facility] [address] [id number] [place] [address]- 4840 Jan, [facility] [address] [id number] [place] [address]- 4396 Dec, [facility] [address] [id number] [place] [address]- 3366 Dec, [facility] [place] [facility] [address] [id number] [place] [address]- 3224 Dec, [facility] [address] [id number] [place] [address]- 9834 Dec, [facility] [address] [id number] [place] [address]- 5302 Dec, [facility] [address] [id number] [place] [address]- 1999 Nov, [facility] [address] [id number] [place] [address]- 7287 Nov, [facility] [address] [id number] [place] [address]- 6322 Nov, [facility] [address] [id number] [place] [address]- 4655 Nov, [facility] [address] [id number] [place] [address]- 9410 Oct, [facility] [place] [facility] [address] [id number] [place] [address]- 2544 Oct, [facility] [place] [facility] [address] [id number] [place] [address]- 1980 Oct, [facility] [place] [facility] [address] [id number] [place] [address]- 9570 Oct, [facility] [place] [facility] [address] [id number] [place] [address]- 3302 Oct, [facility] [place] [facility] [address] [id number] [place] [address]- 1371 Oct, [facility] [place] [facility] [address] [id number] [place] [address]- 9566 Oct, [facility] [place] [facility] [address] [id number] [place] [address]- 6136 Oct, [facility] [place] [facility] [address] [id number] [place] [address]- 7906 Oct, [facility] [place] [facility] [address] [id number] [place] [address]- 0279 Oct, [facility] [place] [facility] [address] [id number] [place] [address]- 6836 Oct, [facility] [place] [facility] [address] [id number] [place] [address]- 5027 Oct, [facility] [place] [facility] [address] [id number] [place] [address]- 0184 Oct, [facility] [place] [facility] [address] [id number] [place] [address]- 2247 Sep, [facility] [place] [facility] [address] [id number] [place] [address]- 9431 Sep, [facility] [place] [facility] [address] [id number] [place] [address]- 4528 Sep, [facility] [place] [facility] [address] [id number] [place] [address]- 9071 Sep, [facility] [place] [facility] [address] [id number] [place] [address]- 3626 Sep, [facility] [place] [facility] [address] [id number] [place] [address]- 0046 Sep, [facility] [place] [facility] [address] [id number] [place] [address]- 6856 Sep, [facility] [place] [facility] [address] [id number] [place] [address]- 6148 Sep, [facility] [place] [facility] [address] [id number] [place] [address]- 4914 Sep, [facility] [place] [facility] [address] [id number] [place] [address]- 2904 Sep, [facility] [place] [facility] [address] [id number] [place] 6966 Sep, [facility] [place] [facility] [address] [id number] [place] [address]- 6444 Sep, [facility] [place] [facility] [address] [id number] [place] [address] Aug, [facility] [place] [facility] [address] [id number] [place] [address] Aug, [facility] [place] [facility] [address] [id number] [place] [address] Aug, [facility] [place] [facility] [address] [id number], [place] [address] Aug, [facility] [place] [facility] [address] [id number] [place] [address] Aug, [facility] [place] [facility] [address] [id number], [place] [address] Aug, [facility] [place] [facility] [address] [id number], [place] [address] Aug, [facility] [place] [facility] [address] [id number], [place] [address] Aug, [facility] [place] [facility] [address] [id number], [place] [address] Aug, [facility] [place] [facility] [address] [id number], [place] [address] Aug, [facility] [place] [facility] [address] [facility] [id number], [place] [address] Aug, [facility] [place] [facility] [address] [id number] [place] [address] 02 Aug, 2012 [facility] [place] [facility] [address] [id number] [place] [address] 28 Jul, 2011 [facility] [place] [facility] [address] [id number] [place] [address] 27 Jul, 2011 [facility] [place] [facility] [address] [id number] [place] [address] 21 Jul, 2011 [facility] [place] [facility] [address] [id number] [place] [address] 10 Jul, 2011 [facility] [place] [facility] [address] [id number] [place] [address] 05 Jul, 2012 [facility] [place] [facility] [address] [id number] [place] [address] 04 Jul, 2012 [facility] [place] [facility] [address] [id number] [place] [address] Jun, [facility] [place] [facility] [address] [id number] [place] [address] Jun, [facility] [place] [facility] [address] [id number] [place] [address] Jun, [facility] [place] [facility] [address] [id number] [place] [address] May, [facility] [place] [facility] [address] [id number] [place] [address] May, [facility] [place] [facility] [address] [id number] [place] [address] 14 May, 2012 [facility] [place] [facility] [address] [id number] [place] [address] May, [facility] [place] [facility] [address] [id number] [place] [address] May, [facility] [place] [facility] [address] [id number] [place] [address] May, [facility] [place] [facility] [address] [id number] [place] [address] 30 Apr, 2012 [facility] [place] [facility] [address] [id number] [place] [address]- [address] 23 Feb, 2012 [facility] [place] [facility] [address] [id number] [place] [address] 18 Feb, 2012 [facility] [place] [facility] [address] [id number] [place] [address] 11 Feb, 2012 [facility] [place] [facility] [address] [id number] [place] [address] 10 Feb, 2012 [facility] [place] [facility] [address] [id number] [place] [address] 16 Jan, 2012 [facility] [place] [facility] [address] [id number] [place] [address] 12 Jan, 2012 [facility] [place] [facility] [address] [id number] [place] [address] 29 Dec, 2011 [facility] [place] [facility] [address] [id number] [place] [address] 28 Dec, 2011 [facility] [place] [facility] [address] [id number] [place] [address] 21 Dec, 2011 [facility] [place] [facility] [address] [id number] [place] [address] 14 Dec, 2011 [facility] [place] [facility] [address] [id number] [place] [address] 14 Dec, 2011 [facility] [place] [facility] [address] [id number] [place] [address] 13 Dec, 2011 [facility] [place] [facility] [address] [id number] [place] [address] 09 Dec, 2011 [facility] [place] [facility] [address] [id number] [place] [address] 07 Dec, 2011 [facility] [place] [facility] [address] [id number] [place] [address] 384[address] 02 Dec, 2011 [facility] [address] [id number] [place] [address] Nov, [facility] [place] [facility] [address] [id number] [place] [address] Nov, [facility] [address] [id number] [place] [address] Nov, [facility] [place] [facility] [address] [id number] [place] [address] 164[address] Nov, [facility] [address] [id number] [place] [address] Nov, [facility] [address] [id number] [place] [address] Nov, [facility] [address] [id number] [place] [address] Nov, [facility] [address] [id number] [place] [address] Nov, [facility] [address] [id number] [place] [address] Nov, [facility] [address] [id number] [place] [address] Oct, [facility] [address] [id number] [place] [address]- [address] Oct, [facility] [place] [facility] [address] [id number] [place] [address] 98[address] Oct, [facility] [place] [facility] [address] [id number] [place] [address]698 Oct, [facility] [place] [facility] [address] [id number] [place] [address]646 Oct, [facility] [place] [facility] [address] [id number] [place] [address]- 78[address] Oct, [facility] [place] [facility] [address] [id number] [place] [address] 02 Sep, 2011 [facility] [place] [facility] [address] [id number] [place] [address]- 6683 19 Aug, 2011 [facility] [place] [facility] [address] [id number] [place] [address] 379[address] 19 Jul, 2011 [facility] [place] [facility] [address] [id number] [place] [address]- 3795 17 Nov, 2010 [facility] [place] [facility] [address] [id number] [place] [address]- 4847 10 Nov, 2010 [facility] [place] [facility] [address] [id number] [place] [address] 35[address] Oct, [facility] [place] [facility] [address] [id number] [place] [address] 60[address] Sep, [facility] [place] [facility] [address] [id number] [place] [address]- 58[address] Sep, [facility] [place] [facility] [address] [id number] [place] [address]- 50[address] 18 Aug, 2010 [facility] [place] [facility] [address] [id number] [place] [address]- [address] 14 Aug, 2010 [facility] [place] [facility] [address] [id number] [place] [address]- 8785 14 Aug, 2010 [facility] [place] [facility] [address] [id number] [place] [address]- 8[address] 13 Feb, 2010 [facility] [place] [facility] [address] [id number] [place] [address]- 5113 10 Dec, 2009 [facility] [place] [facility] [address] [id number] [place] [address]- [address]87 30 Oct, 2009 [facility] [place] [facility] [address] [id number] [place] [address] Oct, [facility] [place] [facility] [address] [id number], [place] [address] Oct, [facility] [address] [facility] [id number], [place] [address] Sep, [facility] [address] [facility] [id number], [place] [address] Sep, [facility] [address] [facility] [id number], [place] [address] Sep, [facility] [address] [facility] [id number], [place] [address] Aug, [facility] [address] [facility] [id number], [place] [address] Aug, IMMUNIZATIONS No Known Immunizations SOCIAL HISTORY Never Assessed REASON FOR VISIT Anxiety- Robert Ward RN PLAN OF CARE VITAL SIGNS Height 63 in 2017-12-13 Weight 223 lbs 2017-12-13 Temperature 98.3 degrees Fahrenheit 2017-12-13 Heart Rate 78 bpm 2017-12-13 Respiratory Rate 18 2017-12-13 BMI 39.50 kg/m2 2017-12-13 Blood pressure systolic 142 mmHg 2017-12-13 Blood pressure diastolic 82 mmHg 2017-12-13 MEDICATIONS Medication Instructions Dosage Frequency Start Date End Date Duration Status Gabapentin 800 MG Orally 3 times a day 1 tablet 8h 90 days Active Gabapentin 600 MG Orally 3 times a day 1 tablet 8h 90 days Active [place] Carbonate 300 MG Orally daily 1 tablet in the morning and 2 at night 24h Active Desvenlafaxine Succinate ER 100 MG Orally in morning 1 tablet Active Cipro 500 mg Orally Twice a day 1 tablet 12h Nov, Dec, 10 day(s) Active Voltaren 1 % Transdermal 2 times a day apply 4gm as needed to lower back as needed h Nov, 30 days Active Seroquel 50 MG Orally Three times a day 1-2 tablets 8h Oct, 30 days Active Seroquel 300 MG Orally Once a day 1 tablet 24h Oct, 30 days Active RESULTS No Results [...] EGD Hospitalization History mental health issues x2 [facility] in [place] 2016 & 02/2017 Hospitalization History Surgery(s)/Childbirth(s)
--- OUTSIDE RECORDS SUMMARY | 2018-08-03 08:42 | XMS REPORT ---
Author Author ESPERANZA LUCI Organization [facility] Address [address] [place] [address] Care Team Providers Care Headend Technician Name Role Phone GARIMALUCI REED Unavailable PROBLEMS Type Condition ICD9-CM Code [id number] Code Onset Dates Condition Status SNOMED Code Problem Anxiety F41.9 Active 88865242 Problem Severe episode of recurrent major depressive disorder, with psychotic features F33.3 Active 17278396 Problem PTSD (post-traumatic stress disorder) F43.10 Active 60937260 Problem Borderline personality disorder F60.3 Active 94856912 Problem Night terror F51.4 Active 61472690 Problem Cannabis use disorder, mild, abuse F12.10 Active 21403948 Problem Sciatica, unspecified side M54.30 Active 94581384 Problem Adjustment disorder with mixed anxiety and depressed mood F43.23 Active 33363563 Problem Mood disorder F39 Active 10131253 Problem Schizo affective schizophrenia F25.0 Active 515054467 Problem Bipolar 1 disorder F31.9 Active 856440532 ALLERGIES No Information ENCOUNTERS Encounter Location Date Diagnosis [facility] [id number] [place] [address] 66552- 0897 Apr, [facility] [id number] [place] [address] 52788- 0568 March, [facility] [id number] [place] [address] 63596- 9685 March, PTSD (post-traumatic stress disorder) F43.10 ; Mood disorder F39 ; Borderline personality disorder F60.3 and Cannabis use disorder, mild, abuse F12.10 [facility] [id number] [place] [address] 03066- 3531 Feb, [facility] [id number] [place] [address] 90976- 2935 Feb, [facility] [id number] [address] Feb, Breast cancer screening Z12.31 [place] [id number] [place] [address] 73706- 4644 Feb, Mood disorder F39 and PTSD (post-traumatic stress disorder) F43.10 [place] [id number] [place] [address] 83999- 8330 Feb, PTSD (post-traumatic stress disorder) F43.10 ; Mood disorder F39 ; Borderline personality disorder F60.3 and Cannabis use disorder, mild, abuse F12.10 [place] [id number] [place] [address] 09225- 4547 Feb, Schizo affective schizophrenia F25.0 ; Adjustment disorder with mixed anxiety and depressed mood F43.23 ; Night terror F51.4 ; Anxiety F41.9 and Borderline personality disorder F60.3 [place] [id number] [place] [address] 51224- 2831 Feb, [place] [id number] [place] [address] 22955- 4696 Feb, Mood disorder F39 [id number] [place] [address] 74807- 9273 Feb, Annual physical exam Z00.00 ; BMI 40.0-44.9, adult Z68.41 and Nipple discharge N64.52 [place] [address] [address] 6[address] Jan, Schizo affective schizophrenia F25.0 ; Adjustment disorder with mixed anxiety and depressed mood F43.23 ; Night terror F51.4 ; Anxiety F41.9 and Borderline personality disorder F60.3 [place] [address] [address] 10[address] Jan, Mood disorder F39 ; PTSD (post-traumatic stress disorder) F43.10 ; Borderline personality disorder F60.3 and High risk medication use Z79.899 [facility] [id number] [place] [address] 43209- 8832 Dec, Anxiety F41.9 and Borderline personality disorder F60.3 [facility] [id number] [place] [address] 54724- 1556 Dec, [facility] [id number] [place] [address] 20150- 6116 Dec, Anxiety F41.9 and Borderline personality disorder F60.3 [facility] [id number] [place] [address] 09562- 0366 Dec, [facility] [id number] [place] [address] 94133- 8897 Dec, [facility] [id number] [place] [address] 87827- 8907 Nov, Acute non-recurrent maxillary sinusitis J01.00 ; Mood disorder F39 and Sciatica, unspecified side M54.30 [facility] [id number] [place] [address] 18706- 7979 Nov, Mood disorder F39 ; PTSD (post-traumatic stress disorder) F43.10 and Borderline personality disorder F60.3 [facility] [id number] [place] [address] 13208- 8290 Nov, Anxiety F41.9 and Borderline personality disorder F60.3 [facility] [id number] [place] [address] 85168- 1832 Nov, [facility] [id number] [place] [address] 97023- 6561 Nov, Anxiety F41.9 and Sciatica, unspecified side M54.30 [facility] [id number] [place] [address] 84373- 2072 Oct, Anxiety F41.9 [facility] [address] 29643- 0144 Oct, Mood disorder F39 ; PTSD (post-traumatic stress disorder) F43.10 ; Borderline personality disorder F60.3 and High risk medication use Z79.899 [facility] [address] [id number] 11 Oct, 2017 Dental caries K02.9 and Dental examination Z01.20 [facility] [id number] [place] [address] 50998- 6051 13 Sep, 2017 Dysuria R30.0 and Abdominal pain, right lower quadrant R10.31 [facility] [id number] [place] [address] 14141- 7002 Aug, Mood disorder F39 ; PTSD (post-traumatic stress disorder) F43.10 and Borderline personality disorder F60.3 [facility] [id number] [place] [address] 53397- 4907 Aug, [facility] [id number] [place] [address] 55394- 6882 Aug, [facility] [id number] [place] [address] 31446- 5043 Aug, Severe episode of recurrent major depressive disorder, with psychotic features F33.3 ; PTSD (post-traumatic stress disorder) F43.10 ; Adjustment disorder with mixed anxiety and depressed mood F43.23 and Borderline personality disorder F60.3 [facility] [address] [address]- 6331 Aug, Mood disorder F39 ; PTSD (post-traumatic stress disorder) F43.10 and Borderline personality disorder F60.3 [facility] [id number] [place] [address] 96689- 2989 Aug, [facility] [id number] [place] [address] 75198- 7850 Aug, Bipolar 1 disorder F31.9 and Schizo affective schizophrenia F25.0 [facility] [id number] [place] [address] 03811- 5923 Aug, Mood disorder F39 [facility] [address] [address]- 8666 Aug, Bipolar 1 disorder F31.9 and Schizo affective schizophrenia F25.0 [facility] [address] [address]- 1486 Aug, Bipolar 1 disorder F31.9 and Schizo affective schizophrenia F25.0 [facility] [id number] [place] [address] 23831- 7820 Aug, [facility] [id number] [place] [address] 89199- 2002 Aug, PTSD (post-traumatic stress disorder) F43.10 and Borderline personality disorder F60.3 [facility] [id number] [address]- 5041 Aug, [facility] [id number] [place] [address] 09580- 8512 Aug, Mood disorder F39 ; PTSD (post-traumatic stress disorder) F43.10 ; Borderline personality disorder F60.3 and Adjustment disorder with mixed anxiety and depressed mood F43.23 [facility] [address] [address]- 5353 Jul, [facility] [address] [address]- 6985 Jul, Mood disorder F39 ; PTSD (post-traumatic stress disorder) F43.10 and Borderline personality disorder F60.3 [facility] [address] [address]- 4906 Jul, [facility] [id number] [place] [address] 94152- 8446 Jun, Anxiety F41.9 ; ADHD (attention deficit hyperactivity disorder) F90.9 ; Night terror F51.4 ; Bulimia F50.2 ; Severe episode of recurrent major depressive disorder, with psychotic features F33.3 and PTSD ( post-traumatic stress disorder) F43.10 [facility] [address] [address]- 6159 Jun, Borderline personality disorder F60.3 ; Mood disorder F39 and PTSD (post-traumatic stress disorder) F43.10 [facility] [address] [address]- 5557 Jun, Anxiety F41.9 [facility] [id number] [place] [address] 74602- 6654 Jun, Anxiety F41.9 ; ADHD (attention deficit hyperactivity disorder) F90.9 ; Night terror F51.4 ; Bulimia F50.2 ; Severe episode of recurrent major depressive disorder, with psychotic features F33.3 and PTSD ( post-traumatic stress disorder) F43.10 [facility] [address] [address]- 1653 Jun, ADHD (attention deficit hyperactivity disorder) F90.9 ; Night terror F51.4 ; Bulimia F50.2 ; Anxiety F41.9 ; Severe episode of recurrent major depressive disorder, with psychotic features F33.3 and PTSD ( post-traumatic stress disorder) F43.10 [facility] [id number] [place] [address] 96584- 3674 May, Anxiety F41.9 [facility] [address] [address]- 9667 May, PTSD (post-traumatic stress disorder) F43.10 and Borderline personality disorder F60.3 [facility] [address] [address]- 9540 Apr, [facility] [id number] [place] [address] [id number] March, Dental examination Z01.20 and Dental caries K02.9 [facility] [address] [address]- 2199 March, Dental examination Z01.20 [facility] [id number] [place] [address] 96962- 9407 March, Tooth abscess K04.7 and Tooth pain K08.89 [facility] [id number] [place] [address] 60469- 4534 March, Borderline personality disorder F60.3 [facility] [id number] [place] [address] 15906- 5427 March, ADHD (attention deficit hyperactivity disorder) F90.9 ; Night terror F51.4 ; Bulimia F50.2 and Anxiety F41.9 [facility] [id number] [place] [address] 87584- 8331 Feb, Borderline personality disorder F60.3 ; ADHD (attention deficit hyperactivity disorder) F90.9 ; Anxiety F41.9 ; Bulimia F50.2 ; Obsessive-compulsive disorder, unspecified type F42.9 and Night terror F51.4 [facility] [id number] [place] [address] 02452- 1285 Feb, [facility] [id number] [place] [address] 57176- 6706 Feb, [facility] [id number] [place] [address] 76513- 3815 Jul, [facility] [id number] [place] [address] 75731- 1101 Jul, [facility] [id number] [place] [address] 60329- 0458 Jul, [facility] [id number] [place] [address] 63267- 7410 Jul, [facility] [id number] [place] [address] 48722- 4855 Jun, [facility] [id number] [place] [address] 95307- 4360 Jun, [facility] [id number] [place] [address] 60010- 6555 Jun, [facility] [place] [facility] [address] [id number] [place] [address]- 0420 Jun, [facility] [place] [facility] [address] [id number] [place] [address]- 8408 Apr, [facility] [place] [facility] [address] [facility] [id number] [place] [address]- 5320 Apr, [facility] [place] [facility] [address] [id number] [place] [address]- 8103 March, [facility] [place] [facility] [address] [id number] [place] [address]- 9521 March, [facility] [place] [facility] [address] [id number] [place] [address]- 0460 Jan, [facility] [place] [facility] [address] [facility] [id number] [place] [address]- 8403 Jan, [facility] [place] [facility] [address] [id number] [place] [address]- 5705 Jan, [facility] [place] [facility] [address] [id number] [place] [address]- 0909 Jan, [facility] [place] [facility] [address] [facility] [id number] [place] [address]- 1548 Jan, [facility] [place] [facility] [address] [id number] [place] [address]- 3967 Dec, [facility] [place] [facility] [address] [id number] [place] [address]- 6416 Dec, [facility] [place] [facility] [address] [id number] [place] [address]- 6463 Oct, [facility] [place] [facility] [address] [id number] [place] [address]- 0621 Oct, [facility] [place] [facility] [address] [facility] [id number] [place] [address]- 7490 Oct, [facility] [place] [facility] [address] [id number] [place] [address]- 1683 Oct, [facility] [place] [facility] [address] [id number] [place] [address]- 0402 Sep, [facility] [place] [facility] [address] [id number] [place] [address]- 5697 Sep, [facility] [place] [facility] [address] [id number] [place] [address]- 8393 Sep, [facility] [place] [facility] [address] [id number] [place] [address]- 0381 Aug, [facility] [place] [facility] [address] [id number] [place] [address]- 0550 Aug, [facility] [place] [facility] [address] [id number] [place] 7634 Aug, [facility] [place] [facility] [address] [id number] [place] [address]- 9836 Aug, [facility] [place] [facility] [address] [id number] [place] [address]- 0222 Aug, [facility] [place] [facility] [address] [id number] [place] [address]- 3011 Aug, [facility] [place] [facility] [address] [id number] [place] [address]- 7410 Aug, [facility] [place] [facility] [address] [id number] [place] [address]- 7901 Jul, [facility] [place] [facility] [address] [id number] [place] [address]- 7422 Jun, [facility] [place] [facility] [address] [id number] [place] [address]- 6167 Jun, [facility] [place] [facility] [address] [id number] [place] [address]- 1509 Jun, [facility] [place] [facility] [address] [id number] [place] [address]- 5494 Jun, [facility] [address] [id number] [place] [address]- 3447 Jun, [facility] [place] [facility] [address] [id number] [place] [address]- 6306 Jun, [facility] [place] [facility] [address] [id number] [place] [address]- 0842 May, [facility] [place] [facility] [address] [id number] [place] [address]- 9727 May, [facility] [place] [facility] [address] [id number] [place] [address]- 4515 May, [facility] [place] [facility] [address] [id number] [place] [address]- 4049 May, [facility] [place] [facility] [address] [id number] [place] [address]- 4724 March, [facility] [place] [facility] [address] [id number] [place] [address]- 6028 March, [facility] [place] [facility] [address] [id number] [place] [address]- 4766 March, [facility] [place] [facility] [address] [id number] [place] [address]- 8766 Feb, [facility] [place] [facility] [address] [id number] [place] [address]- 9289 Feb, [facility] [place] [facility] [address] [id number] [place] [address]- 3303 Feb, [facility] [place] [facility] [address] [id number] [place] [address]- 0050 Feb, [facility] [place] [facility] [address] [id number] [place] [address]- 0866 Jan, [facility] [place] [facility] [address] [id number] [place] [address]- 0216 Jan, [facility] [place] [facility] [address] [id number] [place] [address]- 4676 Jan, [facility] [address] [id number] [place] [address]- 9486 Dec, [facility] [place] [facility] [address] [id number] [place] [address] 2546 14 Dec, 2012 [facility] [address] [id number] [place] [address]- 4756 Dec, [facility] [place] [facility] [address] [id number] [place] [address] 2546 05 Dec, 2012 [facility] [address] [id number] [place] [address]- 1536 Dec, [facility] [address] [id number] [place] [address]- 3346 Nov, [facility] [address] [id number] [place] [address]- 8266 Nov, [facility] [address] [id number] [place] [address] 2541 Nov, [facility] [address] [id number] [place] [address]- 7946 Nov, [facility] [address] [id number] [place] [address] 2546 Oct, [facility] [place] [facility] [address] [id number] [place] [address] 2546 Oct, [facility] [address] [id number] [place] [address] 2546 Oct, [facility] [place] [facility] [address] [id number] [place] [address] 2546 Oct, [facility] [place] [facility] [address] [id number] [place] [address]- 2546 Oct, [facility] [place] [facility] [address] [id number] [place] [address]- 6993 Oct, [facility] [place] [facility] [address] [id number] [place] [address]- 1155 Oct, [facility] [place] [facility] [address] [id number] [place] [address]- 7585 Oct, [facility] [place] [facility] [address] [id number] [place] [address]- 7053 Oct, [facility] [place] [facility] [address] [id number] [place] [address]- 6921 Oct, [facility] [place] [facility] [address] [id number] [place] [address]- 1693 Oct, [facility] [place] [facility] [address] [id number] [place] [address]- 3882 Oct, [facility] [place] [facility] [address] [id number] [place] [address]- 2886 Oct, [facility] [place] [facility] [address] [id number] [place] [address]- 7587 Sep, [facility] [place] [facility] [address] [id number] [place] [address]- 4610 Sep, [facility] [place] [facility] [address] [id number] [place] [address]- 8683 Sep, [facility] [place] [facility] [address] [id number] [place] [address]- 8212 Sep, [facility] [place] [facility] [address] [id number] [place] [address]- 8402 Sep, [facility] [place] [facility] [address] [id number] [place] [address]- 7390 Sep, [facility] [place] [facility] [address] [id number] [place] [address]- 6614 Sep, [facility] [place] [facility] [address] [facility] [id number] [place] [address]- 3855 Sep, [facility] [place] [facility] [address] [id number] [place] [address]- 0510 Sep, [facility] [place] [facility] [address] [id number] [place] [address]- 7616 Sep, [facility] [place] [facility] [address] [id number] [place] 2821 Sep, [facility] [place] [facility] [address] [id number] [place] [address]- 3957 Sep, [facility] [place] [facility] [address] [id number] [place] [address]- 5087 Aug, [facility] [place] [facility] [address] [id number] [place]- 1996 Aug, [facility] [place] [facility] [address] [id number] [place] [address] Aug, [facility] [place] [facility] [address] [id number] [place] [address] Aug, [facility] [place] [facility] [address] [id number] [place] [address] Aug, [facility] [place] [facility] [address] [id number] [place] [address] Aug, [facility] [place] [facility] [address] [facility] [id number] [place] [address] Aug, [facility] [place] [facility] [address] [id number] [place] [address] Aug, [facility] [place] [facility] [address] [id number] [place] [address] Aug, [facility] [place] [facility] [address] [id number] [place] [address] Aug, [facility] [place] [facility] [address] [facility] [id number] [place] [address] Aug, [facility] [place] [facility] [address] [id number] [place] [address] Aug, [facility] [place] [facility] [address] [id number] [place] [address] 28 Jul, 2011 [facility] [place] [facility] [address] [id number] [place] [address] 27 Jul, 2012 [facility] [place] [facility] [address] [id number] [place] [address] 21 Jul, 2011 [facility] [place] [facility] [address] [id number] [place] [address] 10 Jul, 2012 [facility] [place] [facility] [address] [id number] [place] [address] 05 Jul, 2012 [facility] [place] [facility] [address] [id number] [place] [address] 04 Jul, 2012 [facility] [place] [facility] [address] [id number] [place] [address] Jun, [facility] [place] [facility] [address] [id number] [place] [address] Jun, [facility] [place] [facility] [address] [id number] [place] [address] Jun, [facility] [place] [facility] [address] [id number] [place] [address] May, [facility] [place] [facility] [address] [id number] [place] [address] May, [facility] [place] [facility] [address] [id number] [place] [address] May, [facility] [place] [facility] [address] [id number] [place] [address] May, [facility] [place] [facility] [address] [id number] [place] [address] May, [facility] [place] [facility] [address] [id number] [place] [address] May, [facility] [place] [facility] [address] [id number] [place] [address] 30 Apr, 2012 [facility] [address] [id number] [place] [address] 23 Feb, 2012 [facility] [place] [facility] [address] [id number] [place] [address] 18 Feb, 2012 [facility] [place] [facility] [address] [facility] [id number] [place] [address] 11 Feb, 2012 [facility] [place] [facility] [address] [id number] [place] [address] 10 Feb, 2012 [facility] [place] [facility] [address] [facility] [id number] [place] [address] 16 Jan, 2012 [facility] [place] [facility] [address] [facility] [id number] [place] [address] 12 Jan, 2012 [facility] [address] [facility] [id number] [place] [address] 29 Dec, 2011 [facility] [place] [facility] [address] [facility] [id number] [place] [address] 28 Dec, 2011 [facility] [place] [facility] [address] [facility] [id number] [place] [address] 21 Dec, 2011 [facility] [place] [facility] [address] [facility] [id number] [place] [address] 14 Dec, 2011 [facility] [place] [facility] [address] [facility] [id number] [place] [address] 14 Dec, 2011 [facility] [place] [facility] [address] [facility] [id number] [place] [address] 13 Dec, 2011 [facility] [place] [facility] [address] [facility] [id number] [place] [address] 09 Dec, 2011 [facility] [place] [facility] [address] [facility] [id number] [place] [address] 07 Dec, 2011 [facility] [place] [facility] [address] [facility] [id number] [place] [address] 02 Dec, 2011 [facility] [place] [facility] [address] [id number] [place] [address] Nov, [facility] [address] [id number] [place] [address] Nov, [facility] [address] [id number] [place] [address] Nov, [facility] [address] [id number] [place] [address] Nov, [facility] [address] [id number] [place] [address] Nov, [facility] [address] [id number] [place] [address] Nov, [facility] [address] [id number] [place] [address] Nov, [facility] [address] [id number] [place] [address] Nov, [facility] [address] [id number] [place] [address] Nov, [facility] [address] [id number] [place] [address] Oct, [facility] [address] [id number] [place] [address] Oct, [facility] [address] [id number] [place] [address] Oct, [facility] [address] [id number] [place] [address] Oct, [facility] [place] [facility] [address] [id number] [place] [address] Oct, [facility] [address] [id number] [place] [address] Oct, [facility] [address] [id number] [place] [address] Sep, [facility] [place] [facility] [address] [id number] [place] [address] 19 Aug, 2011 [facility] [place] [facility] [address] [id number] [place] [address] 19 Jul, 2011 [facility] [place] [facility] [address] [id number] [place] [address] 17 Nov, 2010 [facility] [place] [facility] [address] [id number] [place] [address] 10 Nov, 2010 [facility] [place] [facility] [address] [id number] [place] Oct, [facility] [place] [facility] [address] [id number] [place] [address] 10 Sep, 2010 [facility] [place] [facility] [address] [id number] [place] [address] Sep, [facility] [place] [facility] [address] [id number] [place] [address] 18 Aug, 2010 [facility] [place] [facility] [address] [id number] [place] [address] 14 Aug, 2010 [facility] [place] [facility] [address] [id number] [place] [address] 14 Aug, 2010 [facility] [place] [facility] [address] [id number] [place] [address] 13 Feb, 2010 [facility] [place] [facility] [address] [id number] [place] [address] 10 Dec, 2009 [facility] [place] [facility] [address] [id number] [place] [address] 30 Oct, 2009 [facility] [place] [facility] [address] [id number] [place] [address] Oct, [facility] [place] [facility] [address] [id number] [place] [address] 08 Oct, 2009 [facility] [place] [facility] [address] [facility] [id number] [place] [address] Sep, [facility] [address] [facility] [id number] [place] [address] Sep, [facility] [address] [id number] [place] [address] Sep, [facility] [address] [facility] [id number] [place] [address] Aug, [facility] [address] [facility] [id number] [place] [address] Aug, IMMUNIZATIONS No Known Immunizations SOCIAL HISTORY Never Assessed REASON FOR VISIT Other PLAN OF CARE VITAL SIGNS MEDICATIONS Unknown [...] mental health issues x2 Ward Unit in [place] 2016 & 02/2017 Hospitalization History Surgery(s)/Childbirth(s)
--- OUTSIDE RECORDS SUMMARY | 2018-08-03 08:43 | XMS REPORT ---
Author Author RUBEN Braga Organization [facility] Address [address] [place] [address] Care Team Providers Care Food Scientist Name Role Phone Maria Luz RUBEN Unavailable PROBLEMS Type Condition ICD9-CM Code COD79-YQ Code Onset Dates Condition Status SNOMED Code Problem Mood disorder F39 Active 82063729 Problem Schizo affective schizophrenia F25.0 Active 534613886 Problem Adjustment disorder with mixed anxiety and depressed mood F43.23 Active 60562983 Problem Other chronic pain G89.29 Active 06391644 Problem Lumbago with sciatica, right side M54.41 Active 155842077 Problem Sciatica, unspecified side M54.30 Active 51566226 Problem Bipolar 1 disorder F31.9 Active 006863786 Problem Morbid obesity due to excess calories E66.01 Active 745281269 Problem Cannabis use disorder, mild, abuse F12.10 Active 13470411 Problem Night terror F51.4 Active 91920736 Problem Anxiety F41.9 Active 31162360 Problem PTSD (post-traumatic stress disorder) F43.10 Active 12945286 Problem Borderline personality disorder F60.3 Active 70577968 Problem Severe episode of recurrent major depressive disorder, with psychotic features F33.3 Active 66099077 ALLERGIES No Information ENCOUNTERS Encounter Location Date Diagnosis [facility] [id number], [place] [address] May, [facility] [id number], [place] [address] 18 Apr, 2018 BMI 40.0-44.9, adult Z68.41 [facility] [address], [place] [address] 14 Apr, 2018 Acute non-recurrent maxillary sinusitis J01.00 [facility] [id number] [place] [address] 63993- 8865 Apr, PTSD (post-traumatic stress disorder) F43.10 ; Mood disorder F39 ; Borderline personality disorder F60.3 ; Cannabis use disorder, mild, abuse F12.10 and 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 [facility] [address], [place] [address] 08 Apr, 2018 [address] [id number] [place] [address] 59172- 1486 07 Apr, 2018 Annual physical exam Z00.00 and High risk medication use Z79.899 [place] [id number] [place] [address] 15469- 2943 07 Apr, 2018 PTSD (post-traumatic stress disorder) F43.10 [place] [id number] [place] [address] 27859- 9938 Apr, [place] [id number] [place] [address] 03865- 9532 March, BMI 40.0-44.9, adult Z68.41 ; Morbid obesity due to excess calories E66.01 ; Lumbago with sciatica, right side M54.41 and Other chronic pain G89.29 [place] [id number] [place] [address] 19875- 3109 March, PTSD (post-traumatic stress disorder) F43.10 [place] [id number] [place] [address] 43875- 6395 March, PTSD (post-traumatic stress disorder) F43.10 ; Mood disorder F39 ; Borderline personality disorder F60.3 and Cannabis use disorder, mild, abuse F12.10 [place] [id number] [place] [address] 21689- 0875 Feb, [place] [id number] [place] [address] 92246- 3178 Feb, [facility] [address] [place] [id number] [place] [address] 19 Feb, 2018 Breast cancer screening Z12.31 [place] [id number] [place] [address] 61810- 5808 17 Feb, 2018 Mood disorder F39 and PTSD (post-traumatic stress disorder) F43.10 [place] [id number] [place] [address] 82339- 3508 Feb, PTSD (post-traumatic stress disorder) F43.10 ; Mood disorder F39 ; Borderline personality disorder F60.3 and Cannabis use disorder, mild, abuse F12.10 [place] [id number] [place] [address] 47601- 9391 Feb, Schizo affective schizophrenia F25.0 ; Adjustment disorder with mixed anxiety and depressed mood F43.23 ; Night terror F51.4 ; Anxiety F41.9 and Borderline personality disorder F60.3 [place] [address] [address] Feb, [place] [id number] [place] [address] 53501- 6136 Feb, Mood disorder F39 [address] [address] Feb, Annual physical exam Z00.00 ; BMI 40.0-44.9, adult Z68.41 and Nipple discharge N64.52 [id number] [place] [address] 26339- 6284 Jan, Schizo affective schizophrenia F25.0 ; Adjustment disorder with mixed anxiety and depressed mood F43.23 ; Night terror F51.4 ; Anxiety F41.9 and Borderline personality disorder F60.3 [id number] [place] [address] 11629- 9979 Jan, Mood disorder F39 ; PTSD (post-traumatic stress disorder) F43.10 ; Borderline personality disorder F60.3 and High risk medication use Z79.899 [place] [address] [address]- 2413 Dec, Anxiety F41.9 and Borderline personality disorder F60.3 [facility] [id number] [place] [address] 87155- 2966 Dec, [facility] [id number] [place] [address] 27495- 2902 Dec, Anxiety F41.9 and Borderline personality disorder F60.3 [place] [id number] [place] [address] 29256- 4686 Dec, [facility] [id number] [place] [address] 59576- 6535 Dec, [facility] [id number] [place] [address] 25235- 4163 Nov, Acute non-recurrent maxillary sinusitis J01.00 ; Mood disorder F39 and Sciatica, unspecified side M54.30 [place] [id number] [place] [address] 04105- 1912 Nov, Mood disorder F39 ; PTSD (post-traumatic stress disorder) F43.10 and Borderline personality disorder F60.3 [place] [id number] [place] [address] 02133- 5704 Nov, Anxiety F41.9 and Borderline personality disorder F60.3 [place] [id number] [place] [address] 02232- 8861 Nov, [facility] [id number] [place] [address] 53495- 2849 Nov, Anxiety F41.9 and Sciatica, unspecified side M54.30 [facility] [id number] [place] [address] 78575- 7981 Oct, Anxiety F41.9 [facility] [id number] [place] [address] 82523- 3932 Oct, Mood disorder F39 ; PTSD (post-traumatic stress disorder) F43.10 ; Borderline personality disorder F60.3 and High risk medication use Z79.899 [facility] [address] [id number] 11 Oct, 2017 Dental caries K02.9 and Dental examination Z01.20 [facility] [address] [place] [address] 00886- 8285 13 Sep, 2017 Dysuria R30.0 and Abdominal pain, right lower quadrant R10.31 [facility] [id number] [place] [address] 33370- 9017 Aug, Mood disorder F39 ; PTSD (post-traumatic stress disorder) F43.10 and Borderline personality disorder F60.3 [facility] [id number] [place] [address] 76650- 5328 Aug, [facility] [id number] [place] [address] 01921- 7202 Aug, [facility] [id number] [place] [address] 35442- 6181 Aug, Severe episode of recurrent major depressive disorder, with psychotic features F33.3 ; PTSD (post-traumatic stress disorder) F43.10 ; Adjustment disorder with mixed anxiety and depressed mood F43.23 and Borderline personality disorder F60.3 [facility] [address] [place] [address] 23945- 3819 Aug, Mood disorder F39 ; PTSD (post-traumatic stress disorder) F43.10 and Borderline personality disorder F60.3 [facility] [address] [address]- 93[address] Aug, [facility] [id number] [place] [address] 88668- 5204 Aug, Bipolar 1 disorder F31.9 and Schizo affective schizophrenia F25.0 [facility] [address] [place] [address] 30793- 0752 Aug, Mood disorder F39 [facility] [id number] [place] [address] 64762- 7509 Aug, Bipolar 1 disorder F31.9 and Schizo affective schizophrenia F25.0 [facility] [id number] [place] [address] 50172- 0541 Aug, Bipolar 1 disorder F31.9 and Schizo affective schizophrenia F25.0 [facility] [id number] [place] [address] 67411- 9847 Aug, [facility] [id number] [place] [address] 42644- 2010 Aug, PTSD (post-traumatic stress disorder) F43.10 and Borderline personality disorder F60.3 [place] [id number] [place] [address] 36182- 0868 Aug, [place] [id number] [place] [address] 02800- 9930 Aug, Mood disorder F39 ; PTSD (post-traumatic stress disorder) F43.10 ; Borderline personality disorder F60.3 and Adjustment disorder with mixed anxiety and depressed mood F43.23 [place] [id number] [place] [address] 65571- 3423 Jul, [place] [id number] [place] [address] 54558- 0861 Jul, Mood disorder F39 ; PTSD (post-traumatic stress disorder) F43.10 and Borderline personality disorder F60.3 [facility] [id number] [place] [address] 72145- 1416 Jul, [facility] [address] [place] [address] 75227- 1341 Jun, Anxiety F41.9 ; ADHD (attention deficit hyperactivity disorder) F90.9 ; Night terror F51.4 ; Bulimia F50.2 ; Severe episode of recurrent major depressive disorder, with psychotic features F33.3 and PTSD ( post-traumatic stress disorder) F43.10 [facility] [id number] [place] [address] 02603- 6325 Jun, Borderline personality disorder F60.3 ; Mood disorder F39 and PTSD (post-traumatic stress disorder) F43.10 [facility] [address] [place] [address] 26869- 7243 Jun, Anxiety F41.9 [facility] [id number] [place] [address] 70463- 9500 Jun, Anxiety F41.9 ; ADHD (attention deficit hyperactivity disorder) F90.9 ; Night terror F51.4 ; Bulimia F50.2 ; Severe episode of recurrent major depressive disorder, with psychotic features F33.3 and PTSD ( post-traumatic stress disorder) F43.10 [facility] [id number] [place] [address] 38574- 3420 Jun, ADHD (attention deficit hyperactivity disorder) F90.9 ; Night terror F51.4 ; Bulimia F50.2 ; Anxiety F41.9 ; Severe episode of recurrent major depressive disorder, with psychotic features F33.3 and PTSD ( post-traumatic stress disorder) F43.10 [facility] [address] [place] [address] 14537- 4669 May, Anxiety F41.9 [facility] [id number] [place] [address] 88640- 6877 May, PTSD (post-traumatic stress disorder) F43.10 and Borderline personality disorder F60.3 [facility] [address] [place] [address] 33475- 3852 Apr, [facility] [id number] [place] [address] [id number] March, Dental examination Z01.20 and Dental caries K02.9 [facility] [id number] [place] [address] 24042- 6685 March, Dental examination Z01.20 [facility] [id number] [place] [address] 28160- 0142 March, Tooth abscess K04.7 and Tooth pain K08.89 [facility] [id number] [place] [address] 26196- 4990 March, Borderline personality disorder F60.3 [facility] [id number] [place] [address] 18646- 0735 March, ADHD (attention deficit hyperactivity disorder) F90.9 ; Night terror F51.4 ; Bulimia F50.2 and Anxiety F41.9 [facility] [address] 86134- 5220 Feb, Borderline personality disorder F60.3 ; ADHD (attention deficit hyperactivity disorder) F90.9 ; Anxiety F41.9 ; Bulimia F50.2 ; Obsessive-compulsive disorder, unspecified type F42.9 and Night terror F51.4 [facility] [id number] [place] [address] 20253- 3177 Feb, [facility] [address] 23645- 4488 Feb, [facility] [id number] [place] [address] 02497- 1427 Jul, [facility] [id number] [place] [address] 11575- 9859 Jul, [facility] [id number] [place] [address] 66500- 2351 Jul, [facility] [id number] [place] [address] 60178- 4621 Jul, [facility] [id number] [place] [address] 04491- 2244 Jun, [facility] [id number] [place] [address] 69806- 3984 Jun, [facility] [id number] [place] [address] 52239- 6449 Jun, [facility] [address] [place] [address]- 4174 Jun, [facility] [place] [facility] [address] [id number] [place] [address]- 0747 Apr, [facility] [place] [facility] [address] [id number] [place] 7231 Apr, [facility] [place] [facility] [address] [id number] [place] [address]- 1803 March, [facility] [place] [facility] [address] [id number] [place] [address]- 2462 March, [facility] [place] [facility] [address] [id number] [place] [address]- 8190 Jan, [facility] [place] [facility] [address] [id number] [place] [address]- 9412 Jan, [facility] [place] [facility] [address] [id number] [place] [address]- 1299 Jan, [facility] [place] [facility] [address] [id number] [place] [address]- 3378 Jan, [facility] [place] [facility] [address] [id number] [place] [address]- 9934 Jan, [facility] [place] [facility] [address] [id number] [place] [address]- 4214 Dec, [facility] [place] [facility] [address] [id number] [place] [address]- 3851 Dec, [facility] [place] [facility] [address] [id number] [place] 4034 Oct, [facility] [place] [facility] [address] [id number] [place] [address]- 0169 Oct, [facility] [place] [facility] [address] [id number] [place] [address]- 4584 Oct, [facility] [place] [facility] [address] [id number] [place] [address]- 0127 Oct, [facility] [place] [facility] [address] [id number] [place] [address]- 2593 Sep, [facility] [place] [facility] [address] [id number] [place] [address]- 5253 Sep, [facility] [place] [facility] [address] [id number] [place] [address]- 9441 Sep, [facility] [place] [facility] [address] [id number] [place] [address]- 8360 Aug, [facility] [place] [facility] [address] [id number] [place] [address]- 2182 Aug, [facility] [place] [facility] [address] [id number] [place] [address]- 3030 Aug, [facility] [place] [facility] [address] [id number] [place] [address]- 5064 Aug, [facility] [place] [facility] [address] [id number] [place] [address]- 1536 Aug, [facility] [place] [facility] [address] [id number] [place] [address]- 3571 Aug, [facility] [place] [facility] [address] [id number] [place] [address]- 2905 Aug, [facility] [place] [facility] [address] [id number] [place] [address]- 7001 Jul, [facility] [place] [facility] [address] [id number] [place] [address]- 0563 Jun, [facility] [place] [facility] [address] [id number] [place] [address]- 0145 Jun, [facility] [place] [facility] [address] [id number] [place] [address]- 0930 Jun, [facility] [place] [facility] [address] [id number] [place] [address]- 6418 Jun, [facility] [place] [facility] [address] [id number] [place] [address]- 3743 Jun, [facility] [address] [id number] [place] [address]- 9278 Jun, [facility] [place] [facility] [address] [id number] [place] [address]- 6826 May, [facility] [place] [facility] [address] [id number] [place] [address]- 0768 May, [facility] [place] [facility] [address] [id number] [place] [address]- 0413 May, [facility] [address] [id number] [place] [address]- 5359 May, [facility] [address] [id number] [place] [address]- 8397 March, [facility] [address] [id number] [place] [address]- 5258 March, [facility] [place] [facility] [address] [id number] [place] [address]- 7279 March, [facility] [address] [id number] [place] [address]- 0677 Feb, [facility] [place] [facility] [address] [id number] [place] [address]- 0186 Feb, [facility] [place] [facility] [address] [id number] [place] [address]- 5592 Feb, [facility] [place] [facility] [address] [id number] [place] [address]- 8717 Feb, [facility] [place] [facility] [address] [id number] [place] [address]- 2351 Jan, [facility] [place] [facility] [address] [id number] [place] [address]- 9741 Jan, [facility] [place] [facility] [address] [id number] [place] [address]- 4750 Jan, [facility] [place] [facility] [address] [id number] [place] [address]- 5736 27 Dec, 2012 [facility] [address] [id number] [place] [address]- 7626 14 Dec, 2012 [facility] [place] [facility] [address] [id number] [place] [address] 2546 12 Dec, 2012 [facility] [address] [id number] [place] [address] 2546 05 Dec, 2012 [facility] [place] [facility] [address] [id number] [place] [address] 2546 04 Dec, 2012 [facility] [address] [id number] [place] [address]- 1756 Nov, [facility] [address] [id number] [place] [address]- 0193 Nov, [facility] [address] [id number] [place] [address]- 7346 Nov, [facility] [address] [id number] [place] [address]- 7541 Nov, [facility] [address] [id number] [place] [address]- 7717 Oct, [facility] [address] [id number] [place] [address] 2546 Oct, [facility] [address] [id number] [place] [address] 2546 Oct, [facility] [place] [facility] [address] [id number] [place] [address] 2546 Oct, [facility] [place] [facility] [address] [id number] [place] [address] 2546 Oct, [facility] [place] [facility] [address] [id number] [place] [address] 2546 Oct, [facility] [place] [facility] [address] [id number] [place] [address]- 1499 Oct, [facility] [place] [facility] [address] [id number] [place] [address]- 0120 Oct, [facility] [place] [facility] [address] [id number] [place] [address]- 3916 Oct, [facility] [place] [facility] [address] [facility] [id number] [place] [address]- 8656 Oct, [facility] [place] [facility] [address] [id number] [place] [address]- 7908 Oct, [facility] [place] [facility] [address] [id number] [place] [address]- 5489 Oct, [facility] [place] [facility] [address] [id number] [place] [address]- 8855 Oct, [facility] [place] [facility] [address] [id number] [place] [address]- 0088 Sep, [facility] [place] [facility] [address] [id number], [place] [address]- 9907 Sep, [facility] [place] [facility] [address] [id number] [place] [address]- 3115 Sep, [facility] [place] [facility] [address] [id number] [place] [address]- 3049 Sep, [facility] [place] [facility] [address] [id number], [place] [address] Sep, [facility] [place] [facility] [address] [id number], [place] [address] Sep, [facility] [place] [facility] [address] [id number] [place] [address] Sep, [facility] [place] [facility] [address] [id number], [place] [address] Sep, [facility] [place] [facility] [address] [facility] [id number], [place] [address] Sep, [facility] [place] [facility] [address] [id number] [place] [address] Sep, [facility] [place] [facility] [address] [id number] [place] [address] Sep, [facility] [place] [facility] [address] [id number] [place] [address] Sep, [facility] [place] [facility] [address] [id number] [place] [address] Aug, [facility] [place] [facility] [address] [id number] [place] [address] Aug, [facility] [place] [facility] [address] [id number] [place] [address] Aug, [facility] [place] [facility] [address] [id number] [place] [address]- [address] Aug, [facility] [place] [facility] [address] [id number] [place] [address] Aug, [facility] [place] [facility] [address] [id number] [place] [address]- [address] Aug, [facility] [place] [facility] [address] [id number] [place] [address]- [address] Aug, [facility] [place] [facility] [address] [facility] [id number] [place] [address]- [address] Aug, [facility] [place] [facility] [address] [id number] [place] [address] Aug, [facility] [place] [facility] [address] [id number], [place] [address] Aug, [facility] [place] [facility] [address] [id number] [place] [address]- [address] Aug, [facility] [place] [facility] [address] [facility] [id number] [place] [address] Aug, [facility] [place] [facility] [address] [id number] [place] [address] Jul, [facility] [place] [facility] [address] [id number] [place] [address] 27 Jul, 2011 [facility] [place] [facility] [address] [id number] [place] [address] 21 Jul, 2012 [facility] [place] [facility] [address] [id number] [place] [address] 10 Jul, 2012 [facility] [place] [facility] [address] [id number] [place] [address]- [address] 05 Jul, 2012 [facility] [place] [facility] [address] [id number] [place] [address] 04 Jul, 2012 [facility] [place] [facility] [address] [id number] [place] [address]- [address] Jun, [facility] [place] [facility] [address] [id number] [place] [address] Jun, [facility] [place] [facility] [address] [id number] [place] [address]- [address] Jun, [facility] [place] [facility] [address] [id number] [place] [address]- [address] May, [facility] [place] [facility] [address] [id number] [place] [address]- [address] May, [facility] [place] [facility] [address] [id number] [place] [address] May, [facility] [place] [facility] [address] [id number] [place] [address] May, [facility] [place] [facility] [address] [id number] [place] [address] May, [facility] [place] [facility] [address] [id number] [place] [address] May, [facility] [place] [facility] [address] [id number] [place] [address] Apr, [facility] [place] [facility] [address] [id number] [place] [address] 23 Feb, 2012 [facility] [place] [facility] [address] [id number] [place] [address] 18 Feb, 2012 [facility] [place] [facility] [address] [id number] [place] [address] 11 Feb, 2012 [facility] [place] [facility] [address] [facility] [id number] [place] [address] 10 Feb, 2012 [facility] [place] [facility] [address] [id number] [place] [address] 16 Jan, 2012 [facility] [place] [facility] [address] [id number] [place] [address] 12 Jan, 2012 [facility] [place] [facility] [address] [id number] [place] [address] 29 Dec, 2011 [facility] [place] [facility] [address] [id number] [place] [address] 28 Dec, 2011 [facility] [place] [facility] [address] [facility] [id number] [place] [address] 21 Dec, 2011 [facility] [place] [facility] [address] [facility] [id number] [place] [address]473 14 Dec, 2011 [facility] [place] [facility] [address] [facility] [id number] [place] [address] 9994 14 Dec, 2011 [facility] [place] [facility] [address] [id number] [place] [address] 13 Dec, 2011 [facility] [place] [facility] [address] [facility] [id number] [place] [address]18 09 Dec, 2011 [facility] [place] [facility] [address] [facility] [id number] [place] [address] 07 Dec, 2011 [facility] [place] [facility] [address] [facility] [id number] [place] [address] 02 Dec, 2011 [facility] [place] [facility] [address] [facility] [id number] [place] [address]061 30 Nov, 2011 [facility] [place] [facility] [address] [id number] [place] [address] Nov, [facility] [address] [id number] [place] [address] Nov, [facility] [address] [id number] [place] [address] Nov, [facility] [place] [facility] [address] [id number] [place] [address] Nov, [facility] [address] [id number] [place] [address] Nov, [facility] [address] [id number] [place] [address] Nov, [facility] [address] [id number] [place] [address] Nov, [facility] [address] [id number] [place] [address] Nov, [facility] [address] [id number] [place] [address] Oct, [facility] [address] [id number] [place] [address] Oct, [facility] [place] [facility] [address] [id number] [place] [address] Oct, [facility] [place] [facility] [address] [id number][place] [address] Oct, [facility] [place] [facility] [address] [id number] [place] [address] Oct, [facility] [place] [facility] [address] [id number] [place] [address] Oct, [facility] [place] [facility] [address] [id number] [place] [address] Sep, [facility] [place] [facility] [address] [id number], [place] [address] 19 Aug, 2011 [facility] [address] [id number] [place] [address] 19 Jul, 2011 [facility] [place] [facility] [address] [id number] [place] [address] 9816 17 Nov, 2010 [facility] [place] [facility] [address] [facility] [id number] [place] [address]27 10 Nov, 2010 [facility] [place] [facility] [address] [id number] [place] [address]757 23 Oct, 2010 [facility] [place] [facility] [address] [id number] [place] [address] 8434 10 Sep, 2010 [facility] [place] [facility] [address] [facility] [id number] [place] [address] Sep, [facility] [place] [facility] [address] [facility] [id number] [place] [address]69 18 Aug, 2010 [facility] [place] [facility] [address] [facility] [id number] [place] [address] 5218 14 Aug, 2010 [facility] [place] [facility] [address] [facility] [id number] [place] [address] 8714 14 Aug, 2010 [facility] [place] [facility] [address] [facility] [id number] [place] [address] 28[address] 13 Feb, 2010 [facility] [place] [facility] [address] [facility] [id number][place] [address]65 10 Dec, 2009 [facility] [place] [facility] [address] [id number] [place] [address] 8924 30 Oct, 2009 [facility] [place] [facility] [address] [id number] [place] [address] Oct, [facility] [place] [facility] [address] [facility] [id number] [place] [address] 08 Oct, 2009 [facility] [place] [facility] [address] [facility] [id number] [place] [address]357 20 Sep, 2009 [facility] [place] [facility] [address] [facility] [id number] [place] [address] 12 Sep, 2009 [facility] [address] [facility] [id number], [place] [address] Sep, [facility] [address] [facility] [id number], [place] [address] 14 Aug, 2009 [facility] [address] [facility] [id number][place] [address] Aug, IMMUNIZATIONS No Known Immunizations SOCIAL HISTORY Never Assessed REASON FOR VISIT f/u PLAN OF CARE Activity Details Follow Up 2 Weeks Reason:Anxiety, Borderline VITAL SIGNS MEDICATIONS Medication Instructions Dosage Frequency Start Date End Date Duration Status Desvenlafaxine Succinate ER 100 MG Orally in morning 1 tablet 30 days Unknown Gabapentin 600 MG Orally 3 times a day 1 tablet 8h 90 days Active Minipress 5 MG Orally at bedtime 1 capsule 30 days Unknown Seroquel 25 MG Orally twice a day as needed 0.5 to 1 tablet Oct, 30 day(s) Unknown [place] Carbonate 300 MG Orally daily 1 tablet in the morning and 2 at night 24h 30 days Unknown Ambien 5 MG Orally at bedtime as needed for anxiety 1 tablet 30 days Unknown HydrOXYzine HCl 50 MG Orally three times a day as needed for anxiety 1-2 tablets Aug, 30 days Unknown Seroquel 100 MG Orally Once a day 1 tablet 24h Oct, 30 day(s) Unknown RESULTS No Results PROCEDURES Procedure Date Ordered Result Body Site Psychotherapy, patient &/family, 30 minutes, established patient Dec 07, 2017 INSTRUCTIONS MEDICATIONS ADMINISTERED No Known Medications [...] EGD Hospitalization History mental health issues x2 [facility] in [place] 2016 & 02/2017 Hospitalization History Surgery(s)/Childbirth(s)
--- OUTSIDE RECORDS SUMMARY | 2018-08-03 08:43 | XMS REPORT | Continuity of Care Document ---
Author Author [facility] Organization [facility] Address Unknown Phone Unavailable Care Team Providers Care [place] Floor Desk Clerk Name Role Phone [facility] Insurance Providers Payer Name Policy Number Subscriber Name Relationship Self Pay AdelsoBeba Farrell Self / Same As Patient Advance Directives Directive Response Recorded Date Advance Directives N 08/13/13 6:24pm Organ Donor Y 08/13/13 6:24pm Problems No Known Problems or Medical conditions. Social History History Response Recorded Date/Time Alcohol Use Past History 08/13/13 6:24pm Recreational Drug Use N 08/13/13 6:24pm Allergies, Adverse Reactions, Alerts Allergen Type Severity Reaction Last Updated Cephalexin Monohydrate Allergy Unknown 05/04/12 Penicillins Allergy Mild 07/09/09 Medications Medication Dose Units Route Sig Qty Days Hydrocodone Bit/Acetaminophen ([place] 5-325 Tablet) 1 Each PO Q4H PRN 10 Prednisone 40 Mg PO DAILY 5 Trazodone HCl (Desyrel 100 Mg) 100 - 200 Mg PO HS PRN Clonazepam (Clonazepam Wafer 2 Mg) 2 Mg PO HS Fluoxetine HCl (Prozac) 60 Mg PO DAILY Lorazepam (Ativan) 1 Tab PO BID 20 Citalopram Hydrobromide (Celexa) 1 Each PO DAILY Quetiapine Fumarate (Seroquel) 50 - 150 Mg PO HS PRN Response Recorded Date/Time Status not known Unknown Results No Known Relevant Diagnostic Tests, Laboratory Data and/or Discharge Summary. Encounters Encounter Location Date/Time Departed Emergency Room [facility] 11/25 6:17pm Registered Emergency Room [facility] 08/05/09 8:12am Pre-registered Emergency Room [facility] 07/09/09 10:44am
--- OUTSIDE RECORDS SUMMARY | 2018-08-03 08:43 | XMS REPORT ---
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 Name Role Phone RACHAEL CHEATHAM Unavailable PROBLEMS Type Condition ICD9-CM Code PCD68-VR Code Onset Dates Condition Status SNOMED Code Problem Mood disorder F39 Active 88490844 Problem Schizo affective schizophrenia F25.0 Active 666017280 Problem Adjustment disorder with mixed anxiety and depressed mood F43.23 Active 01033899 Problem Other chronic pain G89.29 Active 28958070 Problem Lumbago with sciatica, right side M54.41 Active 958647833 Problem Sciatica, unspecified side M54.30 Active 65129199 Problem Bipolar 1 disorder F31.9 Active 120188405 Problem Morbid obesity due to excess calories E66.01 Active 279798428 Problem Cannabis use disorder, mild, abuse F12.10 Active 22627260 Problem Night terror F51.4 Active 47186293 Problem Anxiety F41.9 Active 54176333 Problem PTSD (post-traumatic stress disorder) F43.10 Active 76500041 Problem Borderline personality disorder F60.3 Active 83374375 Problem Severe episode of recurrent major depressive disorder, with psychotic features F33.3 Active 95242206 ALLERGIES Substance Reaction Event Type Date Status Pseudoephedrine HCl ER unknown Drug Allergy Oct, Active Phenytoin rash Drug Allergy Oct, Active Penicillamine anaphylaxis Drug Allergy Oct, Active Cephalexin anaphylaxis Drug Allergy Oct, Active Albuterol unknown Drug Allergy Oct, Active ENCOUNTERS Encounter Location Date Diagnosis [facility] [address] [facility] [id number] [address] May, [facility] [address] [facility] [id number], [place] [address] Apr, PTSD (post-traumatic stress disorder) F43.10 ; Mood disorder F39 ; Borderline personality disorder F60.3 ; Cannabis use disorder, mild, abuse F12.10 and Other intermediate (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 [place] [address], [place] [address] Apr, [facility] [address], [place] [address] Apr, Annual physical exam Z00.00 and High risk medication use Z79.899 [facility] [place] [address] [place] [address]24- 5421 07 Apr, 2018 PTSD (post-traumatic stress disorder) F43.10 [facility] [address], [place] [address] Apr, [facility] [address] [place] [address] 43359- 5500 March, BMI 40.0-44.9, adult Z68.41 ; Morbid obesity due to excess calories E66.01 ; Lumbago with sciatica, right side M54.41 and Other chronic pain G89.29 [facility] [address], [place] [address] March, PTSD (post-traumatic stress disorder) F43.10 [facility] [address], [place] [address] March, PTSD (post-traumatic stress disorder) F43.10 ; Mood disorder F39 ; Borderline personality disorder F60.3 and Cannabis use disorder, mild, abuse F12.10 [facility] [id number], [place] [address] Feb, [place] [address], [place] [address] Feb, [facility] [address] [id number] [address] Feb, Breast cancer screening Z12.31 [address] [place] [address] 15681- 8198 Feb, Mood disorder F39 and PTSD (post-traumatic stress disorder) F43.10 [facility] [place] [address] [address] Feb, PTSD (post-traumatic stress disorder) F43.10 ; Mood disorder F39 ; Borderline personality disorder F60.3 and Cannabis use disorder, mild, abuse F12.10 [facility] [place] [address] [address] Feb, Schizo affective schizophrenia F25.0 ; Adjustment disorder with mixed anxiety and depressed mood F43.23 ; Night terror F51.4 ; Anxiety F41.9 and Borderline personality disorder F60.3 [facility] [address] [address] Feb, [facility] [place] [address] [address] Feb, Mood disorder F39 [facility] [address] [address] Feb, Annual physical exam Z00.00 ; BMI 40.0-44.9, adult Z68.41 and Nipple discharge N64.52 [facility] [address] [address] Jan, Schizo affective schizophrenia F25.0 ; Adjustment disorder with mixed anxiety and depressed mood F43.23 ; Night terror F51.4 ; Anxiety F41.9 and Borderline personality disorder F60.3 [facility] [address] [place] [address] [id number] [place] [address] 15993- 9326 Jan, Mood disorder F39 ; PTSD (post-traumatic stress disorder) F43.10 ; Borderline personality disorder F60.3 and High risk medication use Z79.899 [facility] [address] [place] [id number] [place] [address] 56048- 6310 Dec, Anxiety F41.9 and Borderline personality disorder F60.3 [facility] [place] [address] [place] [address] Dec, [facility] [id number] [place] [address] 26941- 1016 Dec, Anxiety F41.9 and Borderline personality disorder F60.3 [facility] [id number] [place] [address] 30556- 3206 Dec, [facility] [address] [address] Dec, [facility] [id number] [place] [address] 85056- 6304 Nov, Acute non-recurrent maxillary sinusitis J01.00 ; Mood disorder F39 and Sciatica, unspecified side M54.30 [facility] [id number] [place] [address] 68378- 5350 Nov, Mood disorder F39 ; PTSD (post-traumatic stress disorder) F43.10 and Borderline personality disorder F60.3 [facility] [id number] [place] [address] 96661- 6642 Nov, Anxiety F41.9 and Borderline personality disorder F60.3 [facility] [id number] [place] [address] 20758- 5543 Nov, [facility] [id number] [place] [address] 92454- 1036 Nov, Anxiety F41.9 and Sciatica, unspecified side M54.30 [facility] [id number] [place] [address] 78171- 6708 Oct, Anxiety F41.9 [facility] [address] [address] Oct, Mood disorder F39 ; PTSD (post-traumatic stress disorder) F43.10 ; Borderline personality disorder F60.3 and High risk medication use Z79.899 [facility] [id number] [place] [id number] Oct, Dental caries K02.9 and Dental examination Z01.20 [facility] [id number] [place] [address] 47849- 9584 Sep, Dysuria R30.0 and Abdominal pain, right lower quadrant R10.31 [facility] [id number] [place] [address] 34998- 5426 Aug, Mood disorder F39 ; PTSD (post-traumatic stress disorder) F43.10 and Borderline personality disorder F60.3 [facility] [id number] [place] [address] 62844- 8204 Aug, [facility] [id number] [place] [address] 79936- 2184 Aug, [facility] [id number] [place] [address] 39388- 1841 Aug, Severe episode of recurrent major depressive disorder, with psychotic features F33.3 ; PTSD (post-traumatic stress disorder) F43.10 ; Adjustment disorder with mixed anxiety and depressed mood F43.23 and Borderline personality disorder F60.3 [facility] [id number] [place] [address] 37805- 8289 Aug, Mood disorder F39 ; PTSD (post-traumatic stress disorder) F43.10 and Borderline personality disorder F60.3 [facility] [address], [place] [address] Aug, [facility] [id number] [place] [address] 60200- 7876 Aug, Bipolar 1 disorder F31.9 and Schizo affective schizophrenia F25.0 [facility] [id number] [place] [address] 13399- 0452 Aug, Mood disorder F39 [facility] [id number] [place] [address] 84817- 4444 Aug, Bipolar 1 disorder F31.9 and Schizo affective schizophrenia F25.0 [facility] [address] [place], [place] [address] 9[address] Aug, Bipolar 1 disorder F31.9 and Schizo affective schizophrenia F25.0 [facility] [address] [address] [id number] [place] [address] 23667- 1567 Aug, [facility] [address] [address] [id number] [place] [address] 37690- 4193 Aug, PTSD (post-traumatic stress disorder) F43.10 and Borderline personality disorder F60.3 [facility] [address] [address] [id number] [place] [address] 30470- 9036 Aug, [facility] [address] [place] [id number] [place] [address] 78624- 9691 Aug, Mood disorder F39 ; PTSD (post-traumatic stress disorder) F43.10 ; Borderline personality disorder F60.3 and Adjustment disorder with mixed anxiety and depressed mood F43.23 [facility] [address] [id number] [place] [address] 51284- 8200 Jul, [facility] [address] [place] [address] [id number] [place] [address] 27077- 2907 Jul, Mood disorder F39 ; PTSD (post-traumatic stress disorder) F43.10 and Borderline personality disorder F60.3 [facility] [address] [place] [id number] [place] [address] 86297- 4054 Jul, [facility] [address] [place] [address] [id number] [place] [address] 98445- 0824 Jun, Anxiety F41.9 ; ADHD (attention deficit hyperactivity disorder) F90.9 ; Night terror F51.4 ; Bulimia F50.2 ; Severe episode of recurrent major depressive disorder, with psychotic features F33.3 and PTSD ( post-traumatic stress disorder) F43.10 [facility] [address], [place] [address]- 5077 Jun, Borderline personality disorder F60.3 ; Mood disorder F39 and PTSD (post-traumatic stress disorder) F43.10 [place] [place] [address], [place] [address]- 6026 Jun, Anxiety F41.9 [facility] [address] [place] [id number] [place] [address] 21273- 6571 Jun, Anxiety F41.9 ; ADHD (attention deficit hyperactivity disorder) F90.9 ; Night terror F51.4 ; Bulimia F50.2 ; Severe episode of recurrent major depressive disorder, with psychotic features F33.3 and PTSD ( post-traumatic stress disorder) F43.10 [facility] [address] [place] [address] [id number] [place] [address] 08358- 8789 Jun, ADHD (attention deficit hyperactivity disorder) F90.9 ; Night terror F51.4 ; Bulimia F50.2 ; Anxiety F41.9 ; Severe episode of recurrent major depressive disorder, with psychotic features F33.3 and PTSD ( post-traumatic stress disorder) F43.10 [facility] [address] [place] [address] [id number] [place] [address] 76726- 6217 May, Anxiety F41.9 [facility] [address] [place] [address] [id number] [place] [address] 65269- 7663 May, PTSD (post-traumatic stress disorder) F43.10 and Borderline personality disorder F60.3 [facility] [address] [place] [address] [id number] [place] [address] 42992- 3085 Apr, [facility] [address] [place] [address] [id number] March, Dental examination Z01.20 and Dental caries K02.9 [facility] [address] [id number] [place] [address] 70775- 6410 March, Dental examination Z01.20 [facility] [address] [place] [address] [id number] [place] [address] 55567- 9107 March, Tooth abscess K04.7 and Tooth pain K08.89 [facility] [address] [address] [id number] [place] [address] 90276- 0467 March, Borderline personality disorder F60.3 [facility] [address], [place] [address]- 8134 March, ADHD (attention deficit hyperactivity disorder) F90.9 ; Night terror F51.4 ; Bulimia F50.2 and Anxiety F41.9 [facility] [id number] [place] [address] 14538- 6318 Feb, Borderline personality disorder F60.3 ; ADHD (attention deficit hyperactivity disorder) F90.9 ; Anxiety F41.9 ; Bulimia F50.2 ; Obsessive-compulsive disorder, unspecified type F42.9 and Night terror F51.4 [facility] [id number] [place] [address] 74682- 4598 Feb, [facility] [id number] [place] [address] 45032- 5393 Feb, [facility] [id number] [place] [address] 39780- 0249 Jul, [facility] [id number] [place] [address] 11911- 3475 Jul, [facility] [id number] [place] [address] 92392- 0917 Jul, [facility] [id number] [place] [address] 83806- 6870 Jul, [facility] [id number] [place] [address] 03030- 1102 Jun, [facility] [id number] [place] [address] 27070- 6964 Jun, [facility] [id number] [place] [address] 59651- 3840 Jun, [facility] [address] [place] [address] 74730- 4259 Jun, [facility] [id number] [place] [address] 98825- 0683 Apr, [facility] [place] [facility] [address] [id number] [place] [address] Apr, [facility] [place] [facility] [address] [id number] [place] [address]- 9203 March, [facility] [place] [facility] [address] [id number] [place] [address]- 6425 March, [facility] [place] [facility] [address] [id number] [place] [address]- 7643 Jan, [facility] [place] [facility] [address] [id number] [place]356 Jan, [facility] [place] [facility] [address] [id number] [place] [address]- 9962 Jan, [facility] [place] [facility] [address] [id number] [place] [address]- 9248 Jan, [facility] [place] [facility] [address] [id number] [place] [address]- 5693 Jan, [facility] [place] [facility] [address] [id number] [place] [address]- 3597 Dec, [facility] [place] [facility] [address] [id number] [place] [address]- 5423 Dec, [facility] [place] [facility] [address] [id number] [place] 1542 Oct, [facility] [place] [facility] [address] [id number] [place] 6719 Oct, [facility] [place] [facility] [address] [id number] [place] [address]- 1290 Oct, [facility] [place] [facility] [address] [id number] [place] [address]- 8778 Oct, [facility] [place] [facility] [address] [id number] [place] [address]- 3028 Sep, [facility] [place] [facility] [address] [id number] [place] [address]- 7056 Sep, [facility] [place] [facility] [address] [id number] [place] [address]- 5720 Sep, [facility] [place] [facility] [address] [id number] [place] [address]- 8331 Aug, [facility] [place] [facility] [address] [id number] [place] [address]- 8664 Aug, [facility] [place] [facility] [address] [id number] [place] [address]- 1617 Aug, [facility] [place] [facility] [address] [id number] [place] [address]- 9841 Aug, [facility] [place] [facility] [address] [id number] [place] [address]- 5008 Aug, [facility] [place] [facility] [address] [id number] [place] [address]- 0904 Aug, [facility] [place] [facility] [address] [id number] [place] [address]- 2091 Aug, [facility] [place] [facility] [address] [id number] [place] [address]- 4037 Jul, [facility] [place] [facility] [address] [id number] [place] [address]- 4309 Jun, [facility] [place] [facility] [address] [id number] [place] [address]- 9846 Jun, [facility] [place] [facility] [address] [id number] [place] [address]- 6149 Jun, [facility] [place] [facility] [address] [id number] [place] [address]- 5681 Jun, [facility] [place] [facility] [address] [id number] [place] [address]- 4370 Jun, [facility] [place] [facility] [address] [id number] [place] [address]- 2702 Jun, [facility] [address] [id number] [place] [address]- 6863 May, [facility] [place] [facility] [address] [id number] [place] [address]- 1449 May, [facility] [address] [id number] [place] [address]- 6765 May, [facility] [place] [facility] [address] [id number] [place] [address]- 5455 May, [facility] [address] [id number] [place] [address]- 2801 March, [facility] [address] [id number] [place] [address]- 0602 March, [facility] [address] [id number] [place] [address]- 2476 March, [facility] [address] [id number] [place] [address]- 1776 Feb, [facility] [place] [facility] [address] [id number] [place] [address]- 7089 Feb, [facility] [address] [id number] [place] [address]- 3376 Feb, [facility] [place] [facility] [address] [id number] [place] [address]- 3346 Feb, [facility] [place] [facility] [address] [id number] [place] [address]- 2293 Jan, [facility] [place] [facility] [address] [id number] [place] [address]- 6639 Jan, [facility] [place] [facility] [address] [id number] [place] [address]- 4346 Jan, [facility] [place] [facility] [address] [id number] [place] [address]- 7915 Dec, [facility] [place] [facility] [address] [id number] [place] [address]- 4713 14 Dec, 2012 [facility] [address] [id number] [place] [address]- 2016 12 Dec, 2012 [facility] [address] [id number] [place] [address] 2546 05 Dec, 2012 [facility] [address] [id number] [place] [address] 2546 04 Dec, 2012 [facility] [address] [id number] [place] [address] 2546 31 Nov, 2012 [facility] [address] [id number] [place] [address]- 9856 23 Nov, 2012 [facility] [address] [id number] [place] [address]- 2326 Nov, [facility] [address] [id number] [place] [address]- 8190 Nov, [facility] [address] [id number] [place] [address] 2541 Oct, [facility] [address] [id number] [place] [address] 2546 Oct, [facility] [address] [id number] [place] [address] 2547 Oct, [facility] [address] [id number] [place] [address] 2546 Oct, [facility] [address] [id number] [place] [address] 2546 Oct, [facility] [place] [facility] [address] [id number] [place] [address] 2546 Oct, [facility] [place] [facility] [address] [id number] [place] [address] 2546 Oct, [facility] [address] [id number] [place] [address] 2540 Oct, [facility] [place] [facility] [address] [id number] [place] [address]- 1399 Oct, [facility] [place] [facility] [address] [id number] [place] [address]- 8481 Oct, [facility] [place] [facility] [address] [id number] [place] [address]- 2234 Oct, [facility] [place] [facility] [address] [id number] [place] [address]- 4521 Oct, [facility] [place] [facility] [address] [id number] [place] [address]- 2449 Oct, [facility] [place] [facility] [address] [id number] [place] [address]- 5112 Sep, [facility] [place] [facility] [address] [id number] [place] [address]- 1671 Sep, [facility] [place] [facility] [address] [id number] [place] [address]- 0868 Sep, [facility] [place] [facility] [address] [id number] [place] [address]- 7046 Sep, [facility] [place] [facility] [address] [id number] [place] [address]- 4104 Sep, [facility] [place] [facility] [address] [id number] [place] [address]- 5192 Sep, [facility] [place] [facility] [address] [id number], [place] [address]- 3718 Sep, [facility] [place] [facility] [address] [id number] [place] [address]- 0196 Sep, [facility] [place] [facility] [address] [id number] [place] [address]- 1252 Sep, [facility] [place] [facility] [address] [id number] [place] [address]- 5724 Sep, [facility] [place] [facility] [address] [id number], [place] [address]- 6872 Sep, [facility] [place] [facility] [address] [id number] [place] [address]- 2686 Sep, [facility] [place] [facility] [address] [id number] [place] [address]- 8770 Aug, [facility] [place] [facility] [address] [id number] [place] [address]- 1573 Aug, [facility] [place] [facility] [address] [id number] [place] [address] Aug, [facility] [place] [facility] [address] [id number] [place] [address] Aug, [facility] [place] [facility] [address] [id number] [place] [address] Aug, [facility] [place] [facility] [address] [id number] [place] [address] Aug, [facility] [place] [facility] [address] [id number] [place] [address] Aug, [facility] [place] [facility] [address] [id number] [place] [address] Aug, [facility] [place] [facility] [address] [id number], [place] [address] Aug, [facility] [place] [facility] [address] [id number], [place] [address] Aug, [facility] [place] [facility] [address] [id number], [place] [address] Aug, [facility] [place] [facility] [address] [id number] [place] [address] Aug, [facility] [place] [facility] [address] [id number], [place] [address] Jul, [facility] [place] [facility] [address] [id number] [place] [address] 27 Jul, 2012 [facility] [place] [facility] [address] [id number] [place] [address] 21 Jul, 2011 [facility] [place] [facility] [address] [id number] [place] [address] 10 Jul, 2012 [facility] [place] [facility] [address] [id number] [place] [address] 05 Jul, 2012 [facility] [address] [id number] [place] [address] 04 Jul, 2012 [facility] [place] [facility] [address] [id number] [place] [address] Jun, [facility] [place] [facility] [address] [id number] [place] [address] Jun, [facility] [place] [place] [facility] [address] [id number] [place] [address] Jun, [facility] [address] [id number] [place] [address] May, [facility] [address] [id number] [place] [address] May, [facility] [place] [place] [facility] [address] [id number] [place] [address] May, [facility] [address] [id number] [place] [address] May, [facility] [place] [place] [facility] [address] [id number] [place] [address] May, [facility] [place] [place] [facility] [address] [id number] [place] [address] May, [facility] [place] [facility] [address] [id number] [place] [address] Apr, [facility] [place] [facility] [address] [id number] [place] [address] Feb, [facility] [place] [facility] [address] [id number] [place] [address] 18 Feb, 2012 [facility] [place] [facility] [address] [id number] [place] [address] 11 Feb, 2012 [facility] [place] [facility] [address] [id number] [place] [address] 10 Feb, 2012 [facility] [place] [facility] [address] [id number] [place] [address] 16 Jan, 2012 [facility] [place] [facility] [address] [id number] [place] [address] 12 Jan, 2012 [facility] [place] [facility] [address] [id number] [place] [address] 29 Dec, 2011 [facility] [place] [facility] [address] [id number] [place] [address] 28 Dec, 2011 [facility] [place] [facility] [address] [id number] [place] [address] 21 Dec, 2011 [facility] [place] [facility] [address] [id number] [place] [address] 14 Dec, 2011 [facility] [place] [facility] [address] [id number] [place] [address] 14 Dec, 2011 [facility] [place] [facility] [address] [id number] [place] [address] 13 Dec, 2011 [facility] [place] [facility] [address] [id number] [place] [address] 09 Dec, 2011 [facility] [place] [facility] [address] [id number] [place] [address] 07 Dec, 2011 [facility] [place] [facility] [address] [id number] [place] [address] 02 Dec, 2011 [facility] [place] [facility] [address] [id number] [place] [address] 30 Nov, 2011 [facility] [place] [facility] [address] [id number] [place] [address] Nov, [facility] [place] [facility] [address] [id number] [place] [address] Nov, [facility] [address] [id number] [place] [address] Nov, [facility] [place] [facility] [address] [id number] [place] [address] Nov, [facility] [address] [id number] [place] [address] Nov, [facility] [place] [facility] [address] [id number] [place] [address] Nov, [facility] [address] [id number] [place] [address] Nov, [facility] [address] [id number] [place] [address] Nov, [facility] [address] [id number] [place] [address] Oct, [facility] [address] [id number] [place] [address] Oct, [facility] [address] [id number] [place] [address] Oct, [facility] [address] [id number] [place] [address] Oct, [facility] [place] [facility] [address] [id number] [place] [address] Oct, [facility] [place] [facility] [address] [id number] [place] [address] Oct, [facility] [place] [facility] [address] [id number] [place] [address] Sep, [facility] [place] [facility] [address] [id number] [place] [address] Aug, [facility] [place] [facility] [address] [id number] [place] [address] Jul, [facility] [place] [facility] [address] [id number] [place] [address] 17 Nov, 2010 [facility] [place] [facility] [address] [id number] [place] [address] 10 Nov, 2010 [facility] [place] [facility] [address] [id number] [place] [address] 23 Oct, 2010 [facility] [place] [facility] [address] [id number] [place] [address] 10 Sep, 2010 [facility] [place] [facility] [address] [id number] [place] [address] Sep, [facility] [place] [facility] [address] [id number] [place] [address] 18 Aug, 2010 [facility] [place] [facility] [address] [id number] [place] [address] 14 Aug, 2010 [facility] [place] [facility] [address] [id number] [place] [address] 14 Aug, 2010 [facility] [place] [facility] [address] [id number] [place] [address] 13 Feb, 2010 [facility] [place] [facility] [address] [id number], [place] [address] 10 Dec, 2009 [facility] [place] [facility] [address] [id number], [place] [address] 30 Oct, 2009 [facility] [place] [facility] [address] [id number], [place] [address] Oct, [facility] [place] [facility] [address] [id number] [place] [address] 08 Oct, 2009 [facility] [place] [facility] [address] [id number], [place] [address] 20 Sep, 2009 [facility] [place] [facility] [address] [id number] [place] [address] 12 Sep, 2009 [facility] [place] [facility] [address] [facility] [id number] [place] [address] Sep, [facility] [address] [facility] [id number] [place] [address] Aug, [facility] [address] [facility] [id number] [place] [address] Aug, IMMUNIZATIONS No Known Immunizations SOCIAL HISTORY Never Assessed REASON FOR VISIT Controlled Med Refill PLAN OF CARE VITAL SIGNS MEDICATIONS Medication Instructions Dosage Frequency Start Date End Date Duration Status Seroquel 25 MG Orally twice a day as needed 0.5 to 1 tablet Oct, 30 day(s) Active RESULTS No Results PROCEDURES [...] EGD Hospitalization History mental health issues x2 [facility] [place] 2016 & 02/2017 Hospitalization History Surgery(s)/Childbirth(s)
--- OUTSIDE RECORDS SUMMARY | 2018-08-03 08:44 | XMS REPORT ---
Author Author LUCI MATA Organization [facility] Address [address] [place] [address] Care Team Providers Care Court Stenographer Name Role Phone GARIMADEREK LUCI Unavailable PROBLEMS Type Condition ICD9-CM Code WHO85-KN Code Onset Dates Condition Status SNOMED Code Problem Mood disorder F39 Active 16178083 Problem Schizo affective schizophrenia F25.0 Active 943659239 Problem Adjustment disorder with mixed anxiety and depressed mood F43.23 Active 61770199 Problem Other chronic pain G89.29 Active 43273251 Problem Lumbago with sciatica, right side M54.41 Active 342691108 Problem Sciatica, unspecified side M54.30 Active 12381631 Problem Bipolar 1 disorder F31.9 Active 444112447 Problem Morbid obesity due to excess calories E66.01 Active 255109215 Problem Cannabis use disorder, mild, abuse F12.10 Active 60286683 Problem Night terror F51.4 Active 72656589 Problem Anxiety F41.9 Active 87573049 Problem PTSD (post-traumatic stress disorder) F43.10 Active 08909445 Problem Borderline personality disorder F60.3 Active 26357535 Problem Severe episode of recurrent major depressive disorder, with psychotic features F33.3 Active 83615364 ALLERGIES No Information ENCOUNTERS Encounter Location Date Diagnosis [facility] [address] [id number] [address] May, [facility] [address] [id number] [address] Apr, PTSD (post-traumatic stress disorder) F43.10 ; Mood disorder F39 ; Borderline personality disorder F60.3 ; Cannabis use disorder, mild, abuse F12.10 and Other director long term care (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 [facility] [address] [id number] [address] Apr, [place] [address] [address] Apr, Annual physical exam Z00.00 and High risk medication use Z79.899 [place] [address] [address] 9[address] Apr, PTSD (post-traumatic stress disorder) F43.10 [place] [address] [place] [id number] [place] [address]1354- [address] Apr, [place] [address] [address] [id number] [place] [address] 61686- 3719 March, BMI 40.0-44.9, adult Z68.41 ; Morbid obesity due to excess calories E66.01 ; Lumbago with sciatica, right side M54.41 and Other chronic pain G89.29 [place] [address] [place] [address] 85124- 7138 March, PTSD (post-traumatic stress disorder) F43.10 [place] [id number] [place] [address] 82444- 3941 March, PTSD (post-traumatic stress disorder) F43.10 ; Mood disorder F39 ; Borderline personality disorder F60.3 and Cannabis use disorder, mild, abuse F12.10 [place] [address] [address] Feb, [place] [address] [address] Feb, [facility] [address] [place] [id number] [place] [address] Feb, Breast cancer screening Z12.31 [place] [id number] [place] [address] 38288- 6185 Feb, Mood disorder F39 and PTSD (post-traumatic stress disorder) F43.10 [place] [address] [place] [address] 32549- 1042 Feb, PTSD (post-traumatic stress disorder) F43.10 ; Mood disorder F39 ; Borderline personality disorder F60.3 and Cannabis use disorder, mild, abuse F12.10 [place] [address] [place] [id number] [place] [address] 95918- 1138 Feb, Schizo affective schizophrenia F25.0 ; Adjustment disorder with mixed anxiety and depressed mood F43.23 ; Night terror F51.4 ; Anxiety F41.9 and Borderline personality disorder F60.3 [place] [address] [address] Feb, [place] [address] [address]- 2312 Feb, Mood disorder F39 [place] [address] [address] Feb, Annual physical exam Z00.00 ; BMI 40.0-44.9, adult Z68.41 and Nipple discharge N64.52 [place] [address] [address] Jan, Schizo affective schizophrenia F25.0 ; Adjustment disorder with mixed anxiety and depressed mood F43.23 ; Night terror F51.4 ; Anxiety F41.9 and Borderline personality disorder F60.3 [place] [address] [place] [id number] [place] [address] 25385- 7481 Jan, Mood disorder F39 ; PTSD (post-traumatic stress disorder) F43.10 ; Borderline personality disorder F60.3 and High risk medication use Z79.899 [place] [address] [place] [id number] [place] [address] 57784- 4200 Dec, Anxiety F41.9 and Borderline personality disorder F60.3 [place] [address] [place] [id number] [place] [address] 97965- 2738 Dec, [place] [address] [place] [id number] [place] [address] 92405- 9307 Dec, Anxiety F41.9 and Borderline personality disorder F60.3 [facility] [id number] [place] [address] 28014- 2316 Dec, [facility] [id number] [place] [address] Dec, [facility] [id number] [place] [address] 91195- 5031 Nov, Acute non-recurrent maxillary sinusitis J01.00 ; Mood disorder F39 and Sciatica, unspecified side M54.30 [facility] [address] [address] [id number] [place] [address] 31131- 4246 Nov, Mood disorder F39 ; PTSD (post-traumatic stress disorder) F43.10 and Borderline personality disorder F60.3 [facility] [id number] [place] [address] 24372- 1993 Nov, Anxiety F41.9 and Borderline personality disorder F60.3 [facility] [id number] [place] [address] 62536- 5726 Nov, [facility] [id number] [place] [address] 04300- 3117 Nov, Anxiety F41.9 and Sciatica, unspecified side M54.30 [facility] [id number] [place] [address] 58273- 5135 Oct, Anxiety F41.9 [facility] [address] [place] [id number] [place] [address] 11758- 0495 Oct, Mood disorder F39 ; PTSD (post-traumatic stress disorder) F43.10 ; Borderline personality disorder F60.3 and High risk medication use Z79.899 [facility] [address] [place] [id number] 11 Oct, 2017 Dental caries K02.9 and Dental examination Z01.20 [facility] [address] [place] [address] 79159- 2261 13 Nov, 2017 Dysuria R30.0 and Abdominal pain, right lower quadrant R10.31 [facility] [address] [place] [id number] [place] [address] 05831- 4516 Aug, Mood disorder F39 ; PTSD (post-traumatic stress disorder) F43.10 and Borderline personality disorder F60.3 [facility] [address] [place] [id number] [place] [address] 58074- 9266 Aug, [facility] [address] [id number] [place] [address] 45971- 7988 Aug, [facility] [id number] [place] [address] 21330- 7880 Aug, Severe episode of recurrent major depressive disorder, with psychotic features F33.3 ; PTSD (post-traumatic stress disorder) F43.10 ; Adjustment disorder with mixed anxiety and depressed mood F43.23 and Borderline personality disorder F60.3 [facility] [id number] [place] [address] 98041- 4535 Aug, Mood disorder F39 ; PTSD (post-traumatic stress disorder) F43.10 and Borderline personality disorder F60.3 [facility] [id number] [place] [address] 53188- 2520 Aug, [facility] [address] [place] [id number] [place] [address] 35819- 9301 Aug, Bipolar 1 disorder F31.9 and Schizo affective schizophrenia F25.0 [facility] [address] [place] [address] [id number] [place] [address] 78278- 5813 Aug, Mood disorder F39 [facility] [address] [place] [address] [id number] [place] [address] 09103- 4668 Aug, Bipolar 1 disorder F31.9 and Schizo affective schizophrenia F25.0 [facility] [address] [place] [id number] [place] [address] 30228- 2546 Aug, Bipolar 1 disorder F31.9 and Schizo affective schizophrenia F25.0 [facility] [address] [id number] [address]- 6663 Aug, [facility] [id number] [place] [address] 78255- 1584 Aug, PTSD (post-traumatic stress disorder) F43.10 and Borderline personality disorder F60.3 [facility] [id number] [place] [address] 16172- 5017 Aug, [facility] [id number] [place] [address] 27444- 2261 Aug, Mood disorder F39 ; PTSD (post-traumatic stress disorder) F43.10 ; Borderline personality disorder F60.3 and Adjustment disorder with mixed anxiety and depressed mood F43.23 [facility] [address] [place] [id number] [place] [address] 94708- 5841 Jul, [facility] [address] [id number] [place] [address] 17705- 0628 Jul, Mood disorder F39 ; PTSD (post-traumatic stress disorder) F43.10 and Borderline personality disorder F60.3 [facility] [address] [address] [id number] [place] [address] 81694- 6595 Jul, [place] [address] [place] [id number] [place] [address] 03760- 2140 Jun, Anxiety F41.9 ; ADHD (attention deficit hyperactivity disorder) F90.9 ; Night terror F51.4 ; Bulimia F50.2 ; Severe episode of recurrent major depressive disorder, with psychotic features F33.3 and PTSD ( post-traumatic stress disorder) F43.10 [facility] [address] [address]- 0488 Jun, Borderline personality disorder F60.3 ; Mood disorder F39 and PTSD (post-traumatic stress disorder) F43.10 [facility] [address] [address]- 4174 Jun, Anxiety F41.9 [facility] [id number] [place] [address] 48224- 0776 Jun, Anxiety F41.9 ; ADHD (attention deficit hyperactivity disorder) F90.9 ; Night terror F51.4 ; Bulimia F50.2 ; Severe episode of recurrent major depressive disorder, with psychotic features F33.3 and PTSD ( post-traumatic stress disorder) F43.10 [facility] [address] [place] [address] 11432- 8604 Jun, ADHD (attention deficit hyperactivity disorder) F90.9 ; Night terror F51.4 ; Bulimia F50.2 ; Anxiety F41.9 ; Severe episode of recurrent major depressive disorder, with psychotic features F33.3 and PTSD ( post-traumatic stress disorder) F43.10 [place] [address] [place] [id number] [place] [address] 66082- 0660 May, Anxiety F41.9 [facility] [address] [place] [id number] [place] [address] 27710- 2247 May, PTSD (post-traumatic stress disorder) F43.10 and Borderline personality disorder F60.3 [facility] [address] [id number] [place] [address] 60904- 2088 Apr, [facility] [address] [id number] [place] [address] [id number] March, Dental examination Z01.20 and Dental caries K02.9 [facility] [address] [place] [id number] [place] [address] 29232- 2743 March, Dental examination Z01.20 [facility] [address] [address] [id number] [place] [address] 01912- 5229 March, Tooth abscess K04.7 and Tooth pain K08.89 [facility] [address] 79017- 8877 March, Borderline personality disorder F60.3 [facility] [address] [place] [id number] [place] [address] 27965- 3529 March, ADHD (attention deficit hyperactivity disorder) F90.9 ; Night terror F51.4 ; Bulimia F50.2 and Anxiety F41.9 [facility] [address] [address]- 8454 Feb, Borderline personality disorder F60.3 ; ADHD (attention deficit hyperactivity disorder) F90.9 ; Anxiety F41.9 ; Bulimia F50.2 ; Obsessive-compulsive disorder, unspecified type F42.9 and Night terror F51.4 [facility] [address] [address] [id number] [place] [address] 53996- 7700 Feb, [facility] [address] [place] [id number] [place] [address] 26085- 9405 Feb, [facility] [id number] [place] [address] 70529- 4124 Jul, [facility] [address] [id number] [place] [address] 18217- 0978 Jul, [facility] [id number] [place] [address] 82079- 4277 Jul, [facility] [address] [place] [address] 44266- 4622 Jul, [facility] [id number] [address]- 3055 Jun, [facility] [address] [address]- 9362 Jun, [facility] [address] [address]- 0201 Jun, [facility] [address] [address]- 1511 Jun, [facility] [address] [id number] [place] [address] 32733- 4384 Apr, [facility] [address] [address]- 2192 Apr, [facility] [address] [place] [place] [address]- 4978 March, [facility] [address] [id number] [place] [address]- 8217 March, [facility] [place] [facility] [address] [id number] [place] [address]- 3128 Jan, [facility] [place] [facility] [address] [id number] [place] [address]- 5600 Jan, [facility] [place] [facility] [address] [id number] [place] [address]- 8984 Jan, [facility] [address] [id number] [place] [address]- 1821 Jan, [facility] [place] [facility] [address] [id number] [place] [address]- 9406 Jan, [facility] [address] [id number] [place] [address]- 4519 Dec, [facility] [address] [id number] [place] [address]- 4036 Dec, [facility] [address] [id number] [place] [address]- 2071 Oct, [facility] [address] [id number] [place] [address]- 5427 Oct, [facility] [place] [facility] [address] [id number] [place] [address]- 2546 Oct, [facility] [place] [facility] [address] [id number] [place] [address]- 2546 Oct, [facility] [place] [facility] [address] [id number] [place] [address]- 2546 Sep, [facility] [place] [facility] [address] [id number] [place] [address]- 2546 Sep, [facility] [place] [facility] [address] [id number] [place] [address]- 8887 Sep, [facility] [place] [facility] [address] [id number] [place] [address]- 8038 Aug, [facility] [place] [facility] [address] [id number] [place] [address]- 8434 Aug, [facility] [place] [facility] [address] [id number] [place] [address]- 2727 Aug, [facility] [place] [facility] [address] [id number] [place] [address]- 2587 Aug, [facility] [place] [facility] [address] [id number] [place] [address]- 1897 Aug, [facility] [place] [facility] [address] [id number] [place] [address]- 7279 Aug, [facility] [place] [facility] [address] [id number] [place] [address]- 2202 Aug, [facility] [place] [facility] [address] [id number] [place] [address]- 9015 Jul, [facility] [place] [facility] [address] [id number] [place] [address]- 8397 Jun, [facility] [place] [facility] [address] [id number] [place] [address]- 4320 Jun, [facility] [place] [facility] [address] [id number] [address]- 4740 Jun, [facility] [place] [facility] [address] [id number] [address]- 1904 Jun, [facility] [place] [facility] [address] [id number] [place] [address]- 6658 Jun, [facility] [place] [facility] [address] [id number] [place] [address]- 0497 Jun, [facility] [place] [facility] [address] [id number] [address]- 9026 May, [facility] [place] [facility] [address] [id number] [address]- 7617 May, [facility] [address] [id number] [place] [address]- 9227 May, [facility] [address] [id number] [place] [address]- 9113 May, [facility] [address] [id number] [place] [address]- 0771 March, [facility] [address] [id number] [place] [address]- 6875 March, [facility] [address] [id number] [place] [address]- 8674 March, [facility] [address] [id number] [place] [address]- 5569 Feb, [facility] [address] [id number] [place] [address]- 7881 Feb, [facility] [address] [id number] [place] [address]- 5630 Feb, [facility] [address] [id number] [place] [address]- 0116 Feb, [facility] [address] [id number] [place] [address]- 0312 Jan, [facility] [address] [id number] [place] [address]- 6082 Jan, [facility] [address] [id number] [place] [address]- 3853 Jan, [facility] [address] [id number] [place] [address]- 9937 Dec, [facility] [place] [facility] [address] [id number] [place] [address]- 2332 Dec, [facility] [address] [id number] [place] [address]- 2380 Dec, [facility] [address] [id number] [place] [address]- 5639 05 Dec, 2012 [facility] [address] [id number] [place] [address]- 0196 Dec, [facility] [address] [id number] [place] [address]- 1596 Nov, [facility] [address] [id number] [place] [address]- 3606 Nov, [facility] [address] [id number] [place] [address]- 5128 Nov, [facility] [address] [id number] [place] [address]- 9104 Nov, [facility] [address] [id number] [place] [address]- 3941 Oct, [facility] [address] [id number] [place] [address]- 6746 Oct, [facility] [address] [id number] [place] [address]- 7147 Oct, [facility] [address] [id number] [place] [address]- 4201 Oct, [facility] [address] [id number] [place] [address]- 5951 Oct, [facility] [address] [id number] [place] [address] 2548 Oct, [facility] [address] [id number] [place] [address] 2546 Oct, [facility] [place] [facility] [address] [id number] [place] [address]- 2546 Oct, [facility] [address] [id number] [place] [address]- 7072 Oct, [facility] [address] [id number] [place] [address]- 0966 Oct, [facility] [place] [facility] [address] [id number] [place] [address]- 2875 Oct, [facility] [place] [facility] [address] [id number] [place] [address]- 8926 Oct, [facility] [place] [facility] [address] [id number] [place] [address]- 4527 Oct, [facility] [place] [facility] [address] [id number] [place] [address]- 9722 Sep, [facility] [place] [facility] [address] [id number] [place] [address]- 8083 Sep, [facility] [place] [facility] [address] [id number] [place] [address]- 2463 Sep, [facility] [place] [facility] [address] [id number] [place] [address]- 9241 Sep, [facility] [place] [facility] [address] [id number] [place] [address]- 6786 Sep, [facility] [place] [facility] [address] [id number] [place] [address]- 4222 Sep, [facility] [place] [facility] [address] [id number] [place] [address]- 5560 Sep, [facility] [place] [facility] [address] [id number] [place] [address]- [address] Sep, [facility] [place] [facility] [address] [id number] [place] [address] Sep, [facility] [place] [facility] [address] [id number] [place] [address] Sep, [facility] [place] [facility] [address] [id number] [place] [address] Sep, [facility] [place] [facility] [address] [id number] [place] [address] Sep, [facility] [place] [facility] [address] [id number] [place] [address] 31 Aug, 2012 [facility] [place] [facility] [address] [id number] [place] [address] Aug, [facility] [place] [facility] [address] [id number] [place] [address] Aug, [facility] [place] [facility] [address] [id number] [place] [address] Aug, [facility] [place] [facility] [address] [id number] [place] [address] Aug, [facility] [place] [facility] [address] [id number] [place] [address] 14 Aug, 2012 [facility] [place] [facility] [address] [id number] [place] [address] Aug, [facility] [place] [facility] [address] [id number] [place] [address] Aug, [facility] [place] [facility] [address] [id number] [place] [address] Aug, [facility] [place] [facility] [address] [id number] [place] [address] Aug, [facility] [place] [facility] [address] [id number] [place] [address] Aug, [facility] [place] [facility] [address] [id number] [place] [address] 02 Aug, 2012 [facility] [place] [facility] [address] [id number] [place] [address] 28 Jul, 2012 [facility] [place] [facility] [address] [id number] [place] [address] 27 Sep, 2011 [facility] [place] [facility] [address] [id number] [place] [address] 21 Jul, 2012 [facility] [place] [facility] [address] [id number] [place] [address] Jul, [facility] [place] [facility] [address] [id number] [place] [address] 05 Jul, 2012 [facility] [place] [facility] [address] [id number] [place] [address] Jul, [facility] [place] [facility] [address] [id number] [place] [address] Jun, [facility] [place] [facility] [address] [id number] [place] [address] Jun, [facility] [place] [facility] [address] [id number] [place] [address] Jun, [facility] [place] [facility] [address] [id number] [place] [address] May, [facility] [place] [facility] [address] [id number] [place] [address] May, [facility] [place] [facility] [address] [id number] [place] [address] May, [facility] [place] [facility] [address] [id number] [place] [address] May, [facility] [place] [facility] [address] [id number] [place] [address] May, [facility] [place] [facility] [address] [id number] [place] [address] May, [facility] [place] [facility] [address] [id number] [address] Apr, [facility] [place] [facility] [address] [id number] [place] [address] Feb, [facility] [place] [facility] [address] [address] [id number] [place] [address] 18 Feb, 2012 [facility] [place] [facility] [address] [id number] [place] [address] Feb, [facility] [place] [facility] [address] [id number] [address] 10 Feb, 2012 [facility] [address] [id number] [place] [address] 16 Jan, 2012 [facility] [place] [facility] [address] [id number] [place] [address] 12 Jan, 2012 [facility] [address] [id number] [place] [address] 29 Dec, 2011 [facility] [place] [facility] [address] [id number] [place] [address] 28 Dec, 2011 [facility] [address] [id number] [place] [address] 21 Dec, 2011 [facility] [place] [facility] [address] [id number] [place] [address] 14 Dec, 2011 [facility] [address] [id number] [place] [address] 14 Dec, 2011 [facility] [address] [id number] [place] [address] 13 Dec, 2011 [facility] [address] [id number] [place] [address] 09 Dec, 2011 [facility] [address] [id number] [place] [address] 07 Dec, 2011 [facility] [place] [facility] [address] [id number] [place] [address]41 02 Dec, 2011 [facility] [place] [facility] [address] [id number] [place] [address] Nov, [facility] [place] [facility] [address] [id number] [place] [address] Nov, [facility] [place] [facility] [address] [id number] [place] [address] Nov, [facility] [place] [facility] [address] [id number] [place] [address] Nov, [facility] [address] [id number] [place] [address] 17 Nov, 2011 [facility] [place] [facility] [address] [id number] [place] [address] Nov, [facility] [place] [facility] [address] [id number] [place] [address] Nov, [facility] [place] [facility] [address] [id number] [place] [address] Nov, [facility] [place] [facility] [address] [id number] [place] [address]186 Nov, [facility] [place] [facility] [address] [id number] [place] [address] Oct, [facility] [place] [facility] [address] [id number] [place] [address] Oct, [facility] [place] [facility] [address] [id number] [place] [address] Oct, [facility] [place] [facility] [address] [id number] [place] [address] Oct, [facility] [place] [facility] [address] [id number] [place] [address] Oct, [facility] [place] [facility] [address] [id number] [place] [address]84 Oct, [facility] [place] [facility] [address] [id number] [address] Sep, [facility] [place] [facility] [address] [id number] [place] [address] Aug, [facility] [place] [facility] [address] [id number] [place] [address] Jul, [facility] [place] [facility] [address] [id number] [place] [address] Nov, [facility] [place] [facility] [address] [id number] [address] 10 Nov, 2010 [facility] [place] [facility] [address] [id number] [place] [address] 23 Oct, 2010 [facility] [place] [facility] [address] [id number] [place] [address]106 10 Sep, 2010 [facility] [place] [facility] [address] [id number] [place] [address] Sep, [facility] [place] [facility] [address] [id number] [place] [address] 18 Aug, 2010 [facility] [place] [facility] [address] [id number] [place] [address] 14 Aug, 2010 [facility] [place] [facility] [address] [id number] [place] [address]47 14 Aug, 2010 [facility] [place] [facility] [address] [id number] [place] [address] 77[address] 13 Feb, 2010 [facility] [place] [facility] [address] [id number] [place] [address] 10 Dec, 2009 [facility] [place] [facility] [address] [id number] [place] [address] 30 Oct, 2009 [facility] [place] [facility] [address] [id number] [place] [address] 26 Oct, 2009 [facility] [place] [facility] [address] [id number] [place] [address] 08 Oct, 2009 [facility] [place] [facility] [address] [id number] [address] 20 Sep, 2009 [facility] [place] [facility] [address] [id number] [place] [address] 12 Sep, 2009 [facility] [place] [facility] [address] [id number] [place] [address] 12 Sep, 2009 [facility] [place] [facility] [address] [id number] [address] 14 Aug, 2009 [facility] [place] [facility] [address] [id number] [place] [address] Aug, IMMUNIZATIONS No Known Immunizations SOCIAL HISTORY Never Assessed REASON FOR VISIT f/u PLAN OF CARE Activity Details Follow Up 3 Weeks Reason: VITAL SIGNS MEDICATIONS Medication Instructions Dosage Frequency Start Date End Date Duration Status Minipress 5 MG Orally at bedtime 1 capsule 30 days Active Calcutta Carbonate 300 MG Orally daily 1 tablet in the morning and 2 at night 24h 30 days Active Desvenlafaxine Succinate ER 100 MG Orally in morning 1 tablet 30 days Active Gabapentin 600 MG Orally 3 times a day 1 tablet 8h 30 Active HydrOXYzine HCl 50 MG Orally three times a day as needed for anxiety 1-2 tablets Aug, 30 days Active Seroquel 100 MG Orally Once a day 1 tablet 24h Oct, 30 day(s) Active Ambien 5 MG Orally at bedtime [...] mental health issues x2 Ward Unit in [place] 2016 & 02/2017 Hospitalization History Surgery(s)/Childbirth(s)
--- OUTSIDE RECORDS SUMMARY | 2018-08-03 08:45 | XMS REPORT ---
Author Author RACHAEL CHEATHAM Organization [facility] Address [address] [place] [address] Care Team Providers Care Chain Carrier Name Role Phone RACHAEL CHEATHAM Unavailable PROBLEMS Type Condition ICD9-CM Code NWG35-EX Code Onset Dates Condition Status SNOMED Code Problem Mood disorder F39 Active 91326829 Problem Schizo affective schizophrenia F25.0 Active 164196666 Problem Adjustment disorder with mixed anxiety and depressed mood F43.23 Active 04911127 Problem Other chronic pain G89.29 Active 56477541 Problem Lumbago with sciatica, right side M54.41 Active 600951185 Problem Sciatica, unspecified side M54.30 Active 06918529 Problem Bipolar 1 disorder F31.9 Active 649510180 Problem Morbid obesity due to excess calories E66.01 Active 197326075 Problem Cannabis use disorder, mild, abuse F12.10 Active 52953020 Problem Night terror F51.4 Active 64848576 Problem Anxiety F41.9 Active 19993877 Problem PTSD (post-traumatic stress disorder) F43.10 Active 33238602 Problem Borderline personality disorder F60.3 Active 71392891 Problem Severe episode of recurrent major depressive disorder, with psychotic features F33.3 Active 00613317 ALLERGIES No Information ENCOUNTERS Encounter Location Date Diagnosis [facility] [id number] [place] [address] 46216- 2563 May, [facility] [id number] [place] [address] 47505- 9361 14 Apr, 2018 Acute non-recurrent maxillary sinusitis J01.00 [place] [id number] [place] [address] 34126- 8761 11 Apr, 2018 PTSD (post-traumatic stress disorder) F43.10 ; Mood disorder F39 ; Borderline personality disorder F60.3 ; Cannabis use disorder, mild, abuse F12.10 and Other chcf (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 [place] [address] [address] 08 Apr, 2018 [place] [address] [address] 7697 Apr, Annual physical exam Z00.00 and High risk medication use Z79.899 [place] [address] [place] [address] 24123- 7074 Apr, PTSD (post-traumatic stress disorder) F43.10 [place] [address] [address] 7[address] Apr, [facility] [address] [place] [address] 73675- 3252 March, BMI 40.0-44.9, adult Z68.41 ; Morbid obesity due to excess calories E66.01 ; Lumbago with sciatica, right side M54.41 and Other chronic pain G89.29 [place] [address] [address] 3[address] March, PTSD (post-traumatic stress disorder) F43.10 [place] [address] [address] 1832 March, PTSD (post-traumatic stress disorder) F43.10 ; Mood disorder F39 ; Borderline personality disorder F60.3 and Cannabis use disorder, mild, abuse F12.10 [place] [address] [address] 6262 Feb, [place] [address], [place] [address] 8917 Feb, [facility] [address] [id number] [address] Feb, Breast cancer screening Z12.31 [place] [address] [address] 9838 Feb, Mood disorder F39 and PTSD (post-traumatic stress disorder) F43.10 [place] [address] [place] [id number] [place] [address] 00894- 4917 Feb, PTSD (post-traumatic stress disorder) F43.10 ; Mood disorder F39 ; Borderline personality disorder F60.3 and Cannabis use disorder, mild, abuse F12.10 [place] [address] [place] [id number] [place] [address] 34398- 1069 Feb, Schizo affective schizophrenia F25.0 ; Adjustment disorder with mixed anxiety and depressed mood F43.23 ; Night terror F51.4 ; Anxiety F41.9 and Borderline personality disorder F60.3 [place] [address] 30716- 7588 Feb, [place] [address] 04681- 9673 Feb, Mood disorder F39 [place] [address] 48925- 9396 Feb, Annual physical exam Z00.00 ; BMI 40.0-44.9, adult Z68.41 and Nipple discharge N64.52 [place] [address] 01776- 9803 Jan, Schizo affective schizophrenia F25.0 ; Adjustment disorder with mixed anxiety and depressed mood F43.23 ; Night terror F51.4 ; Anxiety F41.9 and Borderline personality disorder F60.3 [place] [address] 92323- 0624 Jan, Mood disorder F39 ; PTSD (post-traumatic stress disorder) F43.10 ; Borderline personality disorder F60.3 and High risk medication use Z79.899 [place] [address] 47446- 3091 Dec, Anxiety F41.9 and Borderline personality disorder F60.3 [place] [address] 21275- 2483 Dec, [facility] [id number] [place] [address] 39495- 7051 Dec, Anxiety F41.9 and Borderline personality disorder F60.3 [facility] [address] [place] [id number] [place] [address] 24688- 0107 Dec, [facility] [address] [place] [id number] [place] [address] 81089- 5725 Dec, [facility] [address] [place] [id number] [place] [address] 98407- 9222 Nov, Acute non-recurrent maxillary sinusitis J01.00 ; Mood disorder F39 and Sciatica, unspecified side M54.30 [facility] [address] [place] [id number] [place] [address] 83646- 0407 Nov, Mood disorder F39 ; PTSD (post-traumatic stress disorder) F43.10 and Borderline personality disorder F60.3 [facility] [address] [place] [id number] [place] [address] 19307- 0413 Nov, Anxiety F41.9 and Borderline personality disorder F60.3 [facility] [address] [place] [id number] [place] [address] 96083- 9808 Nov, [facility] [address] [place] [id number] [place] [address] 71243- 3570 Nov, Anxiety F41.9 and Sciatica, unspecified side M54.30 [facility] [address] [place] [id number] [place] [address] 76605- 3275 Oct, Anxiety F41.9 [facility] [address] [place] [id number] [place] [address] 88008- 6291 Oct, Mood disorder F39 ; PTSD (post-traumatic stress disorder) F43.10 ; Borderline personality disorder F60.3 and High risk medication use Z79.899 [facility] [address] [place] [address] [id number] 11 Oct, 2017 Dental caries K02.9 and Dental examination Z01.20 [facility] [address], [place] [address] 8541 13 Sep, 2017 Dysuria R30.0 and Abdominal pain, right lower quadrant R10.31 [facility] [address] [place] [id number] [place] [address] 58349- 8424 Aug, Mood disorder F39 ; PTSD (post-traumatic stress disorder) F43.10 and Borderline personality disorder F60.3 [facility] [address] [place] [id number] [place] [address] 85661- 3439 Aug, [facility] [address] [place] [id number] [place] [address] 14801- 4492 Aug, [facility] [address] [place] [id number] [place] [address] 64415- 2038 Aug, Severe episode of recurrent major depressive disorder, with psychotic features F33.3 ; PTSD (post-traumatic stress disorder) F43.10 ; Adjustment disorder with mixed anxiety and depressed mood F43.23 and Borderline personality disorder F60.3 [facility] [address] [place] [id number] [place] [address] 37047- 8677 Aug, Mood disorder F39 ; PTSD (post-traumatic stress disorder) F43.10 and Borderline personality disorder F60.3 [facility] [address] [place] [id number] [place] [address] 81533- 3476 Aug, [facility] [address] [place] [id number] [place] [address] 18784- 1861 Aug, Bipolar 1 disorder F31.9 and Schizo affective schizophrenia F25.0 [facility] [address] [place] [id number] [place] [address] 19789- 9731 Aug, Mood disorder F39 [facility] [address] [place] [id number] [place] [address] 88963- 3767 Aug, Bipolar 1 disorder F31.9 and Schizo affective schizophrenia F25.0 [facility] [address] [place] [id number] [place] [address] 28178- 9766 Aug, Bipolar 1 disorder F31.9 and Schizo affective schizophrenia F25.0 [place] [id number] [place] [address] 80357- 3786 Aug, [facility] [address] [place] [id number] [place] [address] 42002- 6120 Aug, PTSD (post-traumatic stress disorder) F43.10 and Borderline personality disorder F60.3 [place] [address] [place] [id number] [place] [address] 52934- 0770 Aug, [place] [address] [place] [id number] [place] [address] 14410- 9689 Aug, Mood disorder F39 ; PTSD (post-traumatic stress disorder) F43.10 ; Borderline personality disorder F60.3 and Adjustment disorder with mixed anxiety and depressed mood F43.23 [place] [address] [place] [id number] [place] [address] 36039- 5875 Jul, [place] [address] [place] [id number] [place] [address] 77061- 5297 Jul, Mood disorder F39 ; PTSD (post-traumatic stress disorder) F43.10 and Borderline personality disorder F60.3 [place] [address] [place] [id number] [place] [address] 31276- 9421 Jul, [place] [address] [place] [id number] [place] [address] 39426- 3074 Jun, Anxiety F41.9 ; ADHD (attention deficit hyperactivity disorder) F90.9 ; Night terror F51.4 ; Bulimia F50.2 ; Severe episode of recurrent major depressive disorder, with psychotic features F33.3 and PTSD ( post-traumatic stress disorder) F43.10 [place] [address] [place] [id number] [place] [address] 04640- 4475 Jun, Borderline personality disorder F60.3 ; Mood disorder F39 and PTSD (post-traumatic stress disorder) F43.10 [place] [address] [place] [id number] [place] [address] 30742- 6811 Jun, Anxiety F41.9 [facility] [id number] [place] [address] 58210- 6183 Jun, Anxiety F41.9 ; ADHD (attention deficit hyperactivity disorder) F90.9 ; Night terror F51.4 ; Bulimia F50.2 ; Severe episode of recurrent major depressive disorder, with psychotic features F33.3 and PTSD ( post-traumatic stress disorder) F43.10 [place] [address] [place] [id number] [place] [address] 65972- 4758 Jun, ADHD (attention deficit hyperactivity disorder) F90.9 ; Night terror F51.4 ; Bulimia F50.2 ; Anxiety F41.9 ; Severe episode of recurrent major depressive disorder, with psychotic features F33.3 and PTSD ( post-traumatic stress disorder) F43.10 [place] [address] [place] [id number] [place] [address] 77812- 9411 May, Anxiety F41.9 [place] [address] [place] [id number] [place] [address] 41975- 2956 May, PTSD (post-traumatic stress disorder) F43.10 and Borderline personality disorder F60.3 [place] [address] [place] [id number] [place] [address] 09847- 5891 Apr, [facility] [id number] [place] [address] [id number] March, Dental examination Z01.20 and Dental caries K02.9 [place] [address] [place] [id number] [place] [address] 05972- 0310 March, Dental examination Z01.20 [place] [address] [place] [id number] [place] [address] 92152- 5519 March, Tooth abscess K04.7 and Tooth pain K08.89 [place] [address] [place] [id number] [place] [address] 99183- 8442 March, Borderline personality disorder F60.3 [place] [address] [place] [id number] [address]- 7856 March, ADHD (attention deficit hyperactivity disorder) F90.9 ; Night terror F51.4 ; Bulimia F50.2 and Anxiety F41.9 [facility] [address] [place] [id number] [address]- 6015 Feb, Borderline personality disorder F60.3 ; ADHD (attention deficit hyperactivity disorder) F90.9 ; Anxiety F41.9 ; Bulimia F50.2 ; Obsessive-compulsive disorder, unspecified type F42.9 and Night terror F51.4 [facility] [id number] [place] [address] 07132- 8687 Feb, [facility] [address] [place] [id number] [place] [address] 06684- 8893 Feb, [facility] [address] [place] [id number] [place] [address] 51396- 6968 Jul, [facility] [address] [place] [id number] [address]- 0497 Jul, [facility] [address] [place] [id number] [place] [address] 57598- 6599 Jul, [facility] [address] [place] [id number] [address]- 6897 Jul, [facility] [address], [place] [address]- 3239 Jun, [facility] [address], [place] [address]- 9628 Jun, [facility] [address] [place] [id number] [place] [address] 78051- 2952 Jun, [facility] [address] [place] [id number] [address]- 7733 Jun, [facility] [address], [place] [address]- 1394 Apr, [facility] [place] [facility] [address] [facility] [id number] [place] [address]- 9623 Apr, [facility] [address] [id number] [place] [address]- 0584 March, [facility] [place] [facility] [address] [id number] [place] [address]- 1996 March, [facility] [place] [facility] [address] [id number] [place] [address]- 2325 Jan, [facility] [place] [facility] [address] [id number] [place] [address]- 5695 Jan, [facility] [place] [facility] [address] [id number] [place] [address]- 9273 Jan, [facility] [place] [facility] [address] [id number] [place] [address]- 3767 Jan, [facility] [place] [facility] [address] [id number] [place] [address]- 5624 Jan, [facility] [place] [facility] [address] [id number] [place] [address]- 6217 Dec, [facility] [place] [facility] [address] [id number] [place] [address]- 3004 Dec, [facility] [place] [facility] [address] [id number] [place] [address]- 3377 Oct, [facility] [place] [facility] [address] [id number] [place] [address]- 1382 Oct, [facility] [place] [facility] [address] [id number] [place] [address]- 5634 Oct, [facility] [place] [facility] [address] [id number] [place] [address]- 7856 Oct, [facility] [place] [facility] [address] [id number] [place] [address]- 3516 13 Sep, 2013 [facility] [place] [facility] [address] [id number] [place] [address]- 9749 Sep, [facility] [place] [facility] [address] [id number] [place] [address]- 8468 Sep, [facility] [place] [facility] [address] [id number] [place] [address]- 9761 Aug, [facility] [place] [facility] [address] [id number] [place] [address]- 0392 Aug, [facility] [place] [facility] [address] [id number] [place] [address]- 7985 Aug, [facility] [place] [facility] [address] [id number] [place] [address]- 8465 Aug, [facility] [place] [facility] [address] [id number] [place] [address]- 6852 Aug, [facility] [place] [facility] [address] [id number] [place] [address]- 2119 Aug, [facility] [place] [facility] [address] [id number] [place] [address]- 6363 Aug, [facility] [place] [facility] [address] [id number] [place] [address]- 7812 Jul, [facility] [place] [facility] [address] [id number] [place] [address]- 4251 Jun, [facility] [place] [facility] [address] [id number], [place] [address]- 1626 Jun, [facility] [place] [facility] [address] [id number] [address]- 2290 Jun, [facility] [place] [facility] [address] [id number] [place] [address]- 5759 Jun, [facility] [place] [facility] [address] [id number] [place] [address]- 3827 Jun, [facility] [place] [facility] [address] [id number] [place] [address]- 6309 Jun, [facility] [place] [facility] [address] [id number] [place] [address]- 9125 May, [facility] [address] [id number] [place] [address]- 1794 May, [facility] [address] [id number] [place] [address]- 9859 May, [facility] [address] [id number] [place] [address]- 1759 May, [facility] [address] [id number] [place] [address]- 3455 March, [facility] [address] [id number] [place] [address]- 0832 March, [facility] [address] [id number] [place] [address]- 0059 March, [facility] [address] [id number] [place] [address]- 5106 Feb, [facility] [address] [id number] [place] [address]- 8673 Feb, [facility] [address] [id number] [place] [address]- 4484 Feb, [facility] [address] [id number] [place] [address]- 8806 Feb, [facility] [address] [id number] [place] [address]- 6880 Jan, [facility] [address] [id number] [place] [address]- 2757 Jan, [facility] [place] [facility] [address] [id number] [place] [address]- 4608 Jan, [facility] [place] [facility] [address] [id number] [place] 4197 27 Dec, 2012 [facility] [address] [id number] [place] [address]- 5726 14 Dec, 2012 [facility] [place] [facility] [address] [id number] [place] [address]- 5760 12 Dec, 2012 [facility] [place] [facility] [address] [id number] [place] [address]- 3106 05 Dec, 2012 [facility] [place] [facility] [address] [id number] [place] [address] 2546 04 Dec, 2012 [facility] [place] [facility] [address] [id number] [place] [address] 2546 31 Nov, 2012 [facility] [address] [id number] [place] [address] 2544 23 Nov, 2012 [facility] [place] [facility] [address] [id number] [place] [address]- 4586 Nov, [facility] [address] [id number] [place] [address]- 6197 Nov, [facility] [address] [id number] [place] [address]- 9903 Oct, [facility] [address] [id number] [place] [address] 2546 Oct, [facility] [address] [id number] [place] [address] 2546 Oct, [facility] [place] [facility] [address] [id number] [place] [address] 2546 Oct, [facility] [place] [facility] [address] [id number] [place] [address] 2546 Oct, [facility] [place] [facility] [address] [id number] [place] [address] 2546 Oct, [facility] [place] [facility] [address] [id number] [place] [address] 2546 Oct, [facility] [place] [facility] [address] [id number] [place] [address] 2546 Oct, [facility] [place] [facility] [address] [id number] [place] [address]- 3593 Oct, [facility] [place] [facility] [address] [id number] [place] [address]- 4927 Oct, [facility] [place] [facility] [address] [id number] [place] [address]- 4739 Oct, [facility] [place] [facility] [address] [id number] [place] [address]- 4426 Oct, [facility] [place] [facility] [address] [id number] [place] [address]- 2742 Oct, [facility] [place] [facility] [address] [id number] [place] [address]- 1500 Sep, [facility] [place] [facility] [address] [id number] [place] [address]- 8139 Sep, [facility] [place] [facility] [address] [id number] [place] [address]- 7515 Sep, [facility] [place] [facility] [address] [id number] [place] [address]- 6867 Sep, [facility] [place] [facility] [address] [id number] [place] [address]- 1224 Sep, [facility] [place] [facility] [address] [id number] [place] [address]- 0356 Sep, [facility] [place] [facility] [address] [id number] [place] [address]- 1462 Sep, [facility] [place] [facility] [address] [id number], [place] [address]- 2091 Sep, [facility] [place] [facility] [address] [id number] [place] [address]- 5119 Sep, [facility] [place] [facility] [address] [id number] [place] [address] Sep, [facility] [place] [facility] [address] [id number] [place] [address] Sep, [facility] [place] [facility] [address] [id number] [place] [address] Sep, [facility] [place] [facility] [address] [id number] [place] [address] Aug, [facility] [place] [facility] [address] [id number] [place] [address] Aug, [facility] [place] [facility] [address] [id number] [place] [address] Aug, [facility] [place] [facility] [address] [id number] [place] [address] Aug, [facility] [place] [facility] [address] [id number] [place] [address] Aug, [facility] [place] [facility] [address] [id number] [place] [address] Aug, [facility] [place] [facility] [address] [id number] [place] [address] Aug, [facility] [place] [facility] [address] [id number] [place] [address] Aug, [facility] [place] [facility] [address] [id number] [place] [address] Aug, [facility] [place] [facility] [address] [id number] [place] [address] Aug, [facility] [place] [facility] [address] [id number] [place] [address] Aug, [facility] [place] [facility] [address] [id number] [place] [address] Aug, [facility] [place] [facility] [address] [id number] [place] [address] Jul, [facility] [place] [facility] [address] [id number] [place] [address] Jul, [facility] [place] [facility] [address] [id number] [place] [address] Jul, [facility] [place] [facility] [address] [id number] [place] [address] Jul, [facility] [place] [facility] [address] [id number] [place] [address] Jul, [facility] [place] [facility] [address] [id number] [place] [address] Jul, [facility] [place] [facility] [address] [id number] [place] [address] Jun, [facility] [place] [facility] [address] [id number] [place] [address] Jun, [facility] [place] [facility] [address] [id number] [place] [address] Jun, [facility] [place] [facility] [address] [id number] [place] [address] May, [facility] [place] [facility] [address] [id number] [place] [address] May, [facility] [place] [facility] [address] [id number] [place] [address] May, [facility] [place] [facility] [address] [id number] [place] [address] May, [facility] [place] [facility] [address] [id number], [place] [address] May, [facility] [place] [facility] [address] [id number], [place] [address] May, [facility] [place] [facility] [address] [id number] [place] [address] Apr, [facility] [place] [facility] [address] [id number] [place] [address] Feb, [facility] [place] [facility] [address] [id number] [place] [address] Feb, [facility] [place] [facility] [address] [id number] [place] [address] 11 Feb, 2012 [facility] [place] [facility] [address] [id number] [place] [address] 10 Feb, 2012 [facility] [place] [facility] [address] [id number] [place] [address] 16 Jan, 2012 [facility] [place] [facility] [address] [id number] [place] [address] 12 Jan, 2012 [facility] [place] [facility] [address] [id number] [place] [address] 29 Dec, 2011 [facility] [facility] [address] [id number] [place] [address] 28 Dec, 2011 [facility] [place] [facility] [address] [facility] [id number] [place] [address] 21 Dec, 2011 [facility] [place] [facility] [address] [facility] [id number] [place] [address] 14 Dec, 2011 [facility] [place] [facility] [address] [id number] [place] [address] 14 Dec, 2011 [facility] [place] [facility] [address] [id number] [place] [address] 13 Dec, 2011 [facility] [address] [facility] [id number] [place] [address] 09 Dec, 2011 [facility] [place] [facility] [address] [facility] [id number] [place] [address] 07 Dec, 2011 [facility] [place] [facility] [address] [id number] [place] [address] 02 Dec, 2011 [facility] [place] [facility] [address] [facility] [id number] [place] [address] 30 Nov, 2011 [facility] [place] [facility] [address] [facility] [id number] [place] [address] Nov, [facility] [place] [facility] [address] [facility] [id number] [place] [address] Nov, [facility] [place] [facility] [address] [id number] [place] [address] Nov, [facility] [place] [facility] [address] [id number] [place] [address] Nov, [facility] [place] [facility] [address] [id number] [place] [address] 16 Nov, 2011 [facility] [place] [facility] [address] [id number] [place] [address] Nov, [facility] [place] [facility] [address] [id number] [place] [address] Nov, [facility] [place] [facility] [address] [id number] [place] [address] Nov, [facility] [place] [facility] [address] [id number] [place] [address] Oct, [facility] [place] [facility] [address] [id number], [place] [address] Oct, [facility] [place] [address] [id number] [place] [address] Oct, [facility] [place] [facility] [address] [id number] [place] [address] Oct, [facility] [address] [id number], [place] [address] Oct, [facility] [address] [id number], [place] [address] 254 Oct, [facility] [address] [id number] [place] [address] Sep, [facility] [address] [id number], [place] [address]46 Aug, [facility] [address] [id number], [place] [address] Jul, [facility] [place] [facility] [address] [id number] [place] [address] 17 Nov, 2010 [facility] [address] [id number] [place] [address] 10 Nov, 2010 [facility] [place] [facility] [address] [id number] [place] [address] 23 Oct, 2010 [facility] [address] [id number] [place] [address] 10 Sep, 2010 [facility] [place] [facility] [address] [id number] [place] [address] 254 Sep, [facility] [address] [id number] [place] [address] 117[address] 18 Aug, 2010 [facility] [address] [id number] [place] [address] 14 Aug, 2010 [facility] [address] [id number] [place] [address] 14 Aug, 2010 [facility] [address] [id number] [place] [address] 13 Feb, 2010 [facility] [address] [id number] [place] [address] 4490 10 Dec, 2009 [facility] [address] [facility] [id number] [place] [address] 27[address] 30 Oct, 2009 [facility] [place] [facility] [address] [id number] [place] [address] 2546 Oct, [facility] [place] [address] [id number] [place] [address] 2547 08 Oct, 2009 [facility] [place] [facility] [address] [id number] [place] [address] Sep, [facility] [address] [id number] [place] [address] 25[address] Sep, [facility] [address] [id number] [place] [address] 288[address] Sep, [facility] [address] [facility] [id number] [place] [address] Aug, [facility] [address] [facility] [id number] [place] [id number] Aug, IMMUNIZATIONS No Known Immunizations SOCIAL HISTORY Never Assessed REASON FOR VISIT Repository Medication PLAN OF CARE VITAL SIGNS MEDICATIONS Medication Instructions Dosage Frequency Start Date End Date Duration Status [place] Carbonate 300 MG Orally daily 1 tablet in the morning and 2 at night 24h 30 days Active Gabapentin 600 MG Orally 3 times a day 1 tablet 8h 90 days Active RESULTS No Results PROCEDURES [...] mental health issues x2 Ward Unit in [place] 2016 & 02/2017 Hospitalization History Surgery(s)/Childbirth(s)
--- OUTSIDE RECORDS SUMMARY | 2018-08-03 08:46 | XMS REPORT | Continuity of Care Document ---
Author Author [facility] Address Unknown Phone Unavailable Allergies Active Description Code Type Severity Reaction Onset Reported/Identified Relationship to Patient Clinical Status Yes PENICILLINS SEVERE DERMATOLOGICAL - HIV Yes Penicillins [id number] Drug Allergy Mild N/A 07/09/2009 Yes amoxicillin Drug Allergy N/A N/A 08/26/2009 Yes Keflex Drug Allergy N/A N/A 08/26/2009 Yes amoxicillin Drug Allergy 08/26/2009 Yes Keflex Drug Allergy 08/26/2009 Yes BuSpar Drug Allergy N/A N/A 06/03/2010 Yes BuSpar Drug Allergy 06/03/2010 Yes hydrocodone Drug Allergy 12/07/2010 Yes Lortab 5/500 Drug Allergy 12/07/2010 Yes Cephalexin Monohydrate [id number] Drug Allergy Unknown N/A 05/04/2012 Yes Penicillins Drug Allergy N/A N/A 10/19/2012 Yes Penicillins Drug Allergy 10/19/2012 Medications Medication Packaging Start Date Stop Date Route Dosage Sig FAMOTIDINE TAB 20 MG (PEPCID) MG 08/12/2017 ONCE&1312 KETOROLAC VIAL INJ 60 MG/2CC (TORADOL VIAL) MG 08/12/2017 08/12/2017 ONCE&1313 CETIRIZINE TAB 10 MG (ZYRTEC) MG 08/12/2017 ONCE&1313 DIPHENHYDRAMINE CAP 25 MG (BENADRYL) MG 08/12/2017 08/12/2017 ONCE&1313 PREDNISONE TAB 20 MG (DELTASONE) MG 08/12/2017 08/12/2017 ONCE&1313 Problems Date Dx Coded Attending Type Code Diagnosis Diagnosed By 08/26/2009 KANE ORTEZ DO 300.00 Anxiety 08/26/2009 KANE ORTEZ DO 338.2 CHRONIC PAIN 08/26/2009 HENRIQUE ROTH 300.00 Anxiety 08/26/2009 [facility], HENRIQUE R 338.2 CHRONIC PAIN 08/26/2009 [facility], HENRIQUE R 300.00 Anxiety 08/26/2009 [facility], HENRIQUE R 338.2 CHRONIC PAIN 08/26/2009 [facility], HEN[facility]QUE R 300.00 Anxiety 08/26/2009 [facility], [place]EN[facility] R 338.2 CHRONIC PAIN 08/26/2009 JAQUELINE PINZON APRNIA R 300.00 Anxiety 08/26/2009 JAQUELINE PINZON APRNIA R 338.2 CHRONIC PAIN 08/26/2009 300.00 Anxiety 08/26/2009 338.2 CHRONIC PAIN 08/26/2009 300.00 Anxiety 08/26/2009 338.2 CHRONIC PAIN 08/26/2009 RACHAEL CHEATHAM APRN 300.00 Anxiety 08/26/2009 RACHAEL CHEATHAM APRN 338.2 CHRONIC PAIN 08/26/2009 KIMBERLY PINZON APRN R 300.00 Anxiety 08/26/2009 JAQUELINE PINZON APRNIA R 338.2 CHRONIC PAIN 08/26/2009 ORTEZ DO, [...] KANE K 610.1 Diffuse Cystic Mastopathy 09/24/2009 [facility], [place] R 610.1 Diffuse Cystic Mastopathy 09/24/2009 [facility] 610.1 Diffuse Cystic Mastopathy 09/24/2009 [facility] R 610.1 Diffuse Cystic Mastopathy 09/24/2009 KIMBERLY PINZON APRN R 610.1 Diffuse Cystic Mastopathy 09/24/2009 610.1 Diffuse Cystic Mastopathy 09/24/2009 610.1 Diffuse Cystic Mastopathy 09/24/2009 RACHAEL CHEATHAM APRN 610.1 Diffuse Cystic Mastopathy 09/24/2009 KIMBERLY PINZON APRN R 610.1 Diffuse Cystic Mastopathy 09/24/2009 ORTEZ DO, KANE K 610.1 Diffuse Cystic Mastopathy 09/24/2009 ORTEZ DO, KANE K 610.1 Diffuse Cystic Mastopathy 09/24/2009 PHIL MATUTE MD 610.1 Diffuse Cystic Mastopathy 09/24/2009 ORTEZ DO, KANE K 610.1 Diffuse Cystic Mastopathy 10/20/2009 ORTEZ DO, KANE K 465.9 Acute Upper Respiratory Infections Of Unspecified Site 10/20/2009 ORTEZ DO, KANE K 564.1 Irritable Bowel Syndrome 10/20/2009 [facility], HENRIQUE R 465.9 Acute Upper Respiratory Infections Of Unspecified Site 10/20/2009 [facility] R 564.1 Irritable Bowel Syndrome 10/20/2009 [facility], HENRIQUE R 465.9 Acute Upper Respiratory Infections Of Unspecified Site 10/20/2009 [facility] [place]EN[facility] R 564.1 Irritable Bowel Syndrome 10/20/2009 [facility], [facility] R 465.9 Acute Upper Respiratory Infections Of Unspecified Site 10/20/2009 [facility], [place] R 564.1 Irritable Bowel Syndrome 10/20/2009 JAQUELINE PINZON APRNIA R 465.9 Acute Upper Respiratory Infections Of [...] R 564.1 Irritable Bowel Syndrome 10/20/2009 ORTEZ DO KANE K 465.9 Acute Upper Respiratory Infections Of Unspecified Site 10/20/2009 ORTEZ DO, KANE K 564.1 Irritable Bowel Syndrome 10/20/2009 ORTEZ DO, [...] DO, KANE K 564.1 Irritable Bowel Syndrome 11/11/2009 ORTEZ DO, KANE K 599.0 Urinary Tract Infection 11/11/2009 [facility], [place] R 599.0 Urinary Tract Infection 11/11/2009 [facility] [place]EN[facility] R 599.0 Urinary Tract Infection 11/11/2009 [facility], [place] R 599.0 Urinary Tract Infection 11/11/2009 [...] ORTEZ DO, KANE K 786.2 Cough 01/06/2010 [facility], HENRIQUE R 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 01/06/2010 [facility], HEN[facility]QUE R 780.52 Insomnia, Unspecified 01/06/2010 [facility], [place] R 786.2 Cough 01/06/2010 [facility], [place] R 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 01/06/2010 [facility], [place] R 780.52 Insomnia, Unspecified 01/06/2010 [facility], [place] R 786.2 Cough 01/06/2010 [facility], [place] R 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 01/06/2010 [facility], [place] R 780.52 Insomnia, Unspecified 01/06/2010 [facility], [place] R 786.2 Cough 01/06/2010 JAQUELINE PINZON APRNIA R 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 01/06/2010 JAQUELINE PINZON APRNIA R 780.52 Insomnia, Unspecified 01/06/2010 JAQUELINE PINZON APRNIA R 786.2 Cough 01/06/2010 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 01/06/2010 780.52 Insomnia, Unspecified 01/06/2010 786.2 Cough 01/06/2010 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 01/06/2010 780.52 Insomnia, Unspecified 01/06/2010 786.2 Cough 01/06/2010 RACHAEL CHEATHAM APRN 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 01/06/2010 RACHAEL CHEATHAM APRN 780.52 Insomnia, Unspecified 01/06/2010 RACHAEL CHEATHAM APRN T 786.2 Cough 01/06/2010 JAQUELINE PINZON APRNIA R 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 01/06/2010 JAQUELINE PINZON APRNIA R 780.52 Insomnia, Unspecified 01/06/2010 JAQUELINE PINZON APRNIA R 786.2 Cough 01/06/2010 ORTEZ DO, KANE [...] 789.04 Abdominal Pain, Left Lower Quadrant 02/23/2010 [facility], [place] R 789.04 Abdominal Pain, Left Lower Quadrant 02/23/2010 [facility], [place] R 789.04 Abdominal Pain, Left Lower Quadrant 02/23/2010 [facility], [place] R 789.04 Abdominal Pain, Left Lower Quadrant 02/23/2010 KIMBERLY PINZON APRN 789.04 Abdominal Pain, Left Lower Quadrant 02/23/2010 789.04 Abdominal Pain, Left Lower Quadrant 02/23/2010 789.04 Abdominal Pain, Left Lower Quadrant 02/23/2010 RACHAEL CHEATHAM APRN 789.04 Abdominal Pain, Left Lower Quadrant 02/23/2010 KIMBERLY PNIZON APRN R 789.04 Abdominal Pain, Left Lower Quadrant 02/23/2010 ORTEZ DO, KANE K 789.04 Abdominal Pain, Left Lower Quadrant 02/23/2010 ORTEZ DO, KANE K 789.04 Abdominal Pain, Left Lower Quadrant 02/23/2010 PHIL MATUTE MD 789.04 Abdominal Pain, Left Lower Quadrant 02/23/2010 ORTEZ DO, KANE K 789.04 Abdominal Pain, Left Lower Quadrant 03/16/2010 ORTEZ DO, KANE K 626.8 Other Disorders Of Menstruation And Other Abnormal Bleeding From Female Genital Tract 03/16/2010 [facility], [place] R 626.8 Other Disorders Of Menstruation And Other Abnormal Bleeding From Female Genital Tract 03/16/2010 [facility], [place] R 626.8 Other Disorders Of Menstruation And Other Abnormal Bleeding From Female Genital Tract 03/16/2010 [facility], [place] R 626.8 Other Disorders Of Menstruation [...] Abnormal Bleeding From Female Genital Tract 03/16/2010 KANE ORTEZ DO K 626.8 Other Disorders Of Menstruation And Other Abnormal Bleeding From Female Genital Tract 03/16/2010 KANE ORTEZ DO 626.8 Other Disorders Of Menstruation And Other Abnormal Bleeding From Female Genital Tract 03/16/2010 PHIL MATUTE MD 626.8 Other Disorders Of Menstruation And Other Abnormal Bleeding From Female Genital Tract 03/16/2010 KANE ORTEZ DO 626.8 Other Disorders Of Menstruation And Other Abnormal Bleeding From Female Genital Tract 06/03/2010 JAYLON ORTEZ DOA K 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 06/03/2010 [facility], [place] R 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 06/03/2010 [facility], [place] R 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 06/03/2010 [facility], [place] R 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 06/03/2010 KIMBERLY PINZON APRN 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 06/03/2010 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 06/03/2010 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 06/03/2010 RACHAEL CHEATHAM APRN 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 06/03/2010 KIMBERLY PINZON APRN 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 06/03/2010 KANE ORTEZ DO K 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 06/03/2010 JAYLON ORTEZ DOA K 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 06/03/2010 PHIL MATUTE MD 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 06/03/2010 JAYLON ORTEZ DOA K 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 06/21/2010 JAYLON ORTEZ DOA K 729.1 Myalgia And Myositis, Unspecified 06/21/2010 [facility], [place] R 729.1 Myalgia And Myositis, Unspecified 06/21/2010 [facility], [place] R 729.1 Myalgia And Myositis, Unspecified 06/21/2010 [facility], [place] R 729.1 Myalgia And Myositis, Unspecified 06/21/2010 KIMBERLY PINZON APRN 729.1 Myalgia And Myositis, Unspecified 06/21/2010 729.1 Myalgia And Myositis, Unspecified 06/21/2010 729.1 Myalgia And Myositis, Unspecified 06/21/2010 RACHAEL CHEATHAM APRN 729.1 Myalgia And Myositis, Unspecified 06/21/2010 KIMBERLY PINZON APRN R 729.1 Myalgia And Myositis, Unspecified 06/21/2010 ORTEZ DO, KANE K 729.1 Myalgia And Myositis, Unspecified 06/21/2010 ORTEZ DO, KANE K 729.1 Myalgia And Myositis, Unspecified 06/21/2010 PHIL MATUTE MD 729.1 Myalgia And Myositis, Unspecified 06/21/2010 ORTEZ DO, KANE K 729.1 Myalgia And Myositis, Unspecified 09/13/2010 ORTEZ DO, KANE K 724.5 BACKACHE UNSPECIFIED 09/13/2010 [facility], [place] R 724.5 BACKACHE UNSPECIFIED 09/13/2010 [facility], [place] R 724.5 BACKACHE UNSPECIFIED 09/13/2010 [facility], [place] R 724.5 BACKACHE UNSPECIFIED 09/13/2010 KIMBERLY PINZON APRN R 724.5 BACKACHE UNSPECIFIED 09/13/2010 724.5 BACKACHE UNSPECIFIED 09/13/2010 724.5 BACKACHE UNSPECIFIED 09/13/2010 RACHAEL CHEATHAM APRN 724.5 BACKACHE UNSPECIFIED 09/13/2010 KIMBERLY PINZON APRN R 724.5 BACKACHE UNSPECIFIED 09/13/2010 ORTEZ DO, KANE K 724.5 BACKACHE UNSPECIFIED 09/13/2010 ORTEZ DO, KANE K 724.5 BACKACHE UNSPECIFIED 09/13/2010 PHIL MATUTE MD 724.5 BACKACHE UNSPECIFIED 09/13/2010 ORTEZ DO, KANE K 724.5 BACKACHE UNSPECIFIED 11/29/2010 ORTEZ DO, KANE K 461.9 Acute Sinusitis Unspecified 11/29/2010 [facility], [place] R 461.9 Acute Sinusitis Unspecified 11/29/2010 [facility], [place] R 461.9 Acute Sinusitis Unspecified 11/29/2010 [facility], [place] R 461.9 Acute Sinusitis Unspecified 11/29/2010 KIMBERLY PINZON APRN 461.9 Acute Sinusitis Unspecified 11/29/2010 461.9 Acute Sinusitis Unspecified 11/29/2010 461.9 Acute Sinusitis Unspecified 11/29/2010 RACHAEL CHEATHAM APRN 461.9 Acute Sinusitis Unspecified 11/29/2010 KIMBERLY PINZON APRN 461.9 Acute Sinusitis Unspecified 11/29/2010 ORTEZ DO, KANE K 461.9 Acute Sinusitis Unspecified 11/29/2010 ORTEZ DO, KANE K 461.9 Acute Sinusitis Unspecified 11/29/2010 PHIL MATUTE MD 461.9 Acute Sinusitis Unspecified 11/29/2010 ORTEZ DO, KANE K 461.9 Acute Sinusitis Unspecified 02/03/2011 ORTEZ DO, KANE K 486 Pneumonia Organism Unspecified 02/03/2011 [facility], [place] R 486 Pneumonia Organism Unspecified 02/03/2011 [facility], [place] R 486 Pneumonia Organism Unspecified 02/03/2011 [facility], [place] R 486 Pneumonia Organism Unspecified 02/03/2011 KIMBERLY PINZON APRN R 486 Pneumonia Organism Unspecified 02/03/2011 486 Pneumonia Organism Unspecified 02/03/2011 486 Pneumonia Organism Unspecified 02/03/2011 RACHAEL CHEATHAM APRN 486 Pneumonia Organism Unspecified 02/03/2011 KIMBERLY PINZON APRN R 486 Pneumonia Organism Unspecified 02/03/2011 ORTEZ DO, KANE K 486 Pneumonia Organism Unspecified 02/03/2011 ORTEZ DO, KANE K 486 Pneumonia Organism Unspecified 02/03/2011 PHIL MATUTE MD 486 Pneumonia Organism Unspecified 02/03/2011 ORTEZ DO, KANE K 486 Pneumonia Organism Unspecified 02/18/2011 ORTEZ DO, KANE K 924.20 Contusion Of Foot 02/18/2011 [facility], [place] R 924.20 Contusion Of Foot 02/18/2011 [facility], [place] R 924.20 Contusion Of Foot 02/18/2011 [facility], [place] R 924.20 Contusion Of Foot 02/18/2011 KIMBERLY PINZON APRN R 924.20 Contusion Of Foot 02/18/2011 924.20 Contusion Of Foot 02/18/2011 924.20 Contusion Of Foot 02/18/2011 RACHAEL CHEATHAM APRN 924.20 Contusion Of Foot 02/18/2011 KIMBERLY PINZON APRN 924.20 Contusion Of Foot 02/18/2011 ORTEZ KANE WALLACE K 924.20 Contusion Of Foot 02/18/2011 ORTEZ DOJAYLONA K 924.20 Contusion Of Foot 02/18/2011 PHIL MATUTE MD 924.20 Contusion Of Foot 02/18/2011 ORTEZ DOKANE K 924.20 Contusion Of Foot 07/07/2011 ORTEZ DO KANE K 296.32 MO DEPRESSIVE RECURRENT MODERATE 07/07/2011 [facility] HENRIQUE R 296.32 MO DEPRESSIVE RECURRENT MODERATE 07/07/2011 [facility] 296.32 MO DEPRESSIVE RECURRENT MODERATE 07/07/2011 [facility], [place] R 296.32 MO DEPRESSIVE RECURRENT MODERATE 07/07/2011 KIMBERLY PINZON APRN 296.32 MO DEPRESSIVE RECURRENT MODERATE 07/07/2011 296.32 MO DEPRESSIVE RECURRENT MODERATE 07/07/2011 296.32 MO DEPRESSIVE RECURRENT MODERATE 07/07/2011 RACHAEL CHEATHAM APRN 296.32 MO DEPRESSIVE RECURRENT MODERATE 07/07/2011 KIMBERLY PINZON APRN 296.32 MO DEPRESSIVE RECURRENT MODERATE 07/07/2011 ORTEZ DOJAYLONA K 296.32 MO DEPRESSIVE RECURRENT MODERATE 07/07/2011 ORTEZ DO KANE K 296.32 MO DEPRESSIVE RECURRENT MODERATE 07/07/2011 PHIL MATUTE MD 296.32 MO DEPRESSIVE RECURRENT MODERATE 07/07/2011 ORTEZ DO KANE K 296.32 MO DEPRESSIVE RECURRENT MODERATE 07/20/2011 ORTEZ DO KANE K 300.02 AN GEN ANXIETY 07/20/2011 ORTEZ DO KANE K 300.3 AN OBCESS COMP DIS 07/20/2011 [facility] 300.02 AN GEN ANXIETY 07/20/2011 [facility] 300.3 AN OBCESS COMP DIS 07/20/2011 [facility] R 300.02 AN GEN ANXIETY 07/20/2011 [facility] R 300.3 AN OBCESS COMP DIS 07/20/2011 [facility] 300.02 AN GEN ANXIETY 07/20/2011 [facility], [place] R 300.3 AN OBCESS COMP DIS [...] R 300.3 AN OBCESS COMP DIS 07/20/2011 ORTEZ DO KANE K 300.02 AN GEN ANXIETY 07/20/2011 ORTEZ DO KANE K 300.3 AN OBCESS COMP DIS 07/20/2011 ORTEZ DOJAYLONA K 300.02 AN GEN ANXIETY 07/20/2011 ORTEZ DO KANE K 300.3 AN OBCESS COMP DIS 07/20/2011 PHIL MATUTE MD 300.02 AN GEN ANXIETY 07/20/2011 PHIL MATUTE MD 300.3 AN OBCESS COMP DIS 07/20/2011 ORTEZ DOJAYLONA K 300.02 AN GEN ANXIETY 07/20/2011 ORTEZ DO KANE K 300.3 AN OBCESS COMP DIS 08/01/2011 ORTEZ DO KANE K 380.10 Infective Otitis Externa Unspecified 08/01/2011 [facility], [place] R 380.10 Infective Otitis Externa Unspecified 08/01/2011 [facility], [place] R 380.10 Infective Otitis Externa Unspecified 08/01/2011 [facility], [place] R 380.10 Infective Otitis Externa Unspecified 08/01/2011 KIMBERLY PINZON APRN R 380.10 Infective Otitis Externa Unspecified 08/01/2011 380.10 Infective Otitis Externa Unspecified 08/01/2011 380.10 Infective Otitis Externa Unspecified 08/01/2011 RACHAEL CHEATHAM APRN 380.10 Infective Otitis Externa Unspecified 08/01/2011 KIMBERLY PINZON APRN R 380.10 Infective Otitis Externa Unspecified 08/01/2011 ORTEZ DO KANE K 380.10 Infective Otitis Externa Unspecified 08/01/2011 ORTEZ DO KANE K 380.10 Infective Otitis Externa Unspecified 08/01/2011 PHIL MATUTE MD 380.10 Infective Otitis Externa Unspecified 08/01/2011 ORTEZ DO, KANE K 380.10 Infective Otitis Externa Unspecified 08/02/2011 ORTEZ DO KANE K 300.00 AN ANXIETY UNSPEC 08/02/2011 [facility], [place] R 300.00 AN ANXIETY UNSPEC 08/02/2011 [facility] R 300.00 AN ANXIETY UNSPEC 08/02/2011 [facility] R 300.00 AN ANXIETY UNSPEC 08/02/2011 KIMBERLY PINZON APRN 300.00 AN ANXIETY UNSPEC 08/02/2011 300.00 AN ANXIETY UNSPEC 08/02/2011 300.00 AN ANXIETY UNSPEC 08/02/2011 RACHAEL CHEATHAM APRN 300.00 AN ANXIETY UNSPEC 08/02/2011 KIMBERLY PINZON APRN 300.00 AN ANXIETY UNSPEC 08/02/2011 ORTEZ DO KANE K 300.00 AN ANXIETY UNSPEC 08/02/2011 ORTEZ DO KANE K 300.00 AN ANXIETY UNSPEC 08/02/2011 PHIL MATUTE MD 300.00 AN ANXIETY UNSPEC 08/02/2011 ORTEZ DO KANE K 300.00 AN ANXIETY UNSPEC 08/05/2011 ORTEZ DO KANE K 848.9 Unspecified Site Of Sprain And Strain 08/05/2011 [facility], [place] R 848.9 Unspecified Site Of Sprain And Strain 08/05/2011 [facility], [place] R 848.9 Unspecified Site Of Sprain And Strain 08/05/2011 [facility], [facility] R 848.9 Unspecified Site Of Sprain And Strain 08/05/2011 KIMBERLY PINZON APRN 848.9 Unspecified Site Of Sprain And Strain 08/05/2011 848.9 Unspecified Site Of Sprain And Strain 08/05/2011 848.9 Unspecified Site Of Sprain And Strain 08/05/2011 RACHAEL CHEATHAM APRN 848.9 Unspecified Site Of Sprain And Strain 08/05/2011 KIMBERLY PINZON APRN 848.9 Unspecified Site Of Sprain And Strain 08/05/2011 KANE ORTEZ DO 848.9 Unspecified Site Of Sprain And Strain 08/05/2011 KANE ORTEZ DO 848.9 Unspecified Site Of Sprain And Strain 08/05/2011 PHIL MATUTE MD 848.9 Unspecified Site Of Sprain And Strain 08/05/2011 KANE ORTEZ DO 848.9 Unspecified Site Of Sprain And Strain 08/08/2011 KANE ORTEZ DO 309.81 AN PTSD 08/08/2011 [facility], [place] R 309.81 AN PTSD 08/08/2011 [facility], [facility] R 309.81 AN PTSD 08/08/2011 [facility], [facility] R 309.81 AN PTSD 08/08/2011 KIMBERLY PINZON APRN 309.81 AN PTSD 08/08/2011 309.81 AN PTSD 08/08/2011 309.81 AN PTSD 08/08/2011 RACHAEL CHEATHAM APRN 309.81 AN PTSD 08/08/2011 KIMBERLY PINZON APRN 309.81 AN PTSD 08/08/2011 KANE ORTEZ DO 309.81 AN PTSD 08/08/2011 KANE ORTEZ DO 309.81 AN PTSD 08/08/2011 PHIL MATUTE MD 309.81 AN PTSD 08/08/2011 KANE ORTEZ DO 309.81 AN PTSD 10/17/2011 KANE ORTEZ DO 296.33 MO DEPRESSIVE RECURRENT SEVERE W/O PSYCHOTIC BEHAVIOR 10/17/2011 [facility], [place] R 296.33 MO DEPRESSIVE RECURRENT SEVERE W/O PSYCHOTIC BEHAVIOR 10/17/2011 [facility], [place] R 296.33 MO DEPRESSIVE RECURRENT SEVERE W/O PSYCHOTIC BEHAVIOR 10/17/2011 [facility], [place] R 296.33 MO DEPRESSIVE RECURRENT SEVERE W/O PSYCHOTIC BEHAVIOR 10/17/2011 KIMBERLY PINZON APRN R 296.33 MO DEPRESSIVE RECURRENT SEVERE W/O PSYCHOTIC BEHAVIOR 10/17/2011 296.33 MO DEPRESSIVE RECURRENT SEVERE W/O PSYCHOTIC BEHAVIOR 10/17/2011 296.33 MO DEPRESSIVE RECURRENT SEVERE W/O PSYCHOTIC BEHAVIOR 10/17/2011 RACHAEL CHEATHAM APRN 296.33 MO DEPRESSIVE RECURRENT SEVERE W/O PSYCHOTIC BEHAVIOR 10/17/2011 KIMBERLY PINZON APRN 296.33 MO DEPRESSIVE RECURRENT SEVERE W/O PSYCHOTIC BEHAVIOR 10/17/2011 KANE ORTEZ DO 296.33 MO DEPRESSIVE RECURRENT SEVERE W/O PSYCHOTIC BEHAVIOR 10/17/2011 KANE ORTEZ DO 296.33 MO DEPRESSIVE RECURRENT SEVERE W/O PSYCHOTIC BEHAVIOR 10/17/2011 PHIL MATUTE MD 296.33 MO DEPRESSIVE RECURRENT SEVERE W/O PSYCHOTIC BEHAVIOR 10/17/2011 KANE ORTEZ DO 296.33 MO DEPRESSIVE RECURRENT SEVERE W/O PSYCHOTIC BEHAVIOR 01/10/2012 KANE ORTEZ DO 465.9 ACUTE UPPER RESPIRATORY INFECTIONS OF UNSPECIFIED SITE [facility]/10/2012 [facility] ACUTE UPPER RESPIRATORY INFECTIONS OF UNSPECIFIED SITE 01/10/2012 [facility] ACUTE UPPER RESPIRATORY INFECTIONS OF UNSPECIFIED SITE 01/10/2012 [facility] ACUTE UPPER RESPIRATORY INFECTIONS OF [...] UPPER RESPIRATORY INFECTIONS OF UNSPECIFIED SITE 01/10/2012 KANE ORTEZ DO 465.9 ACUTE UPPER RESPIRATORY INFECTIONS OF UNSPECIFIED SITE 01/10/2012 KANE ORTEZ DO 465.9 ACUTE UPPER RESPIRATORY INFECTIONS OF UNSPECIFIED SITE 01/10/2012 PHIL MATUTE MD 465.9 ACUTE UPPER RESPIRATORY INFECTIONS OF UNSPECIFIED SITE 01/10/2012 KANE ORTEZ DO 465.9 ACUTE UPPER RESPIRATORY INFECTIONS OF UNSPECIFIED SITE 05/04/2012 Ot 787.03 VOMITING ALONE 05/04/2012 Ot 789.00 ABDOMINAL PAIN, UNSPECIFIED SITE 05/08/2012 Ot 787.03 VOMITING ALONE 05/08/2012 Ot 789.06 ABDOMINAL PAIN, EPIGASTRIC 05/26/2012 KANE ORTEZ DO 477.0 ALLERGIC RHINITIS DUE TO POLLEN [facility]/26[facility]2012 [facility] ALLERGIC RHINITIS DUE TO POLLEN 05/26/2012 [facility] ALLERGIC RHINITIS DUE TO POLLEN 05/26/2012 [facility] ALLERGIC RHINITIS DUE TO POLLEN 05/26/2012 KIMBERLY PINZON APRN R 477.0 ALLERGIC RHINITIS DUE TO POLLEN 05/26/2012 477.0 ALLERGIC RHINITIS DUE TO POLLEN 05/26/2012 477.0 ALLERGIC RHINITIS DUE TO POLLEN 05/26/2012 RACHAEL CHEATHAM APRN 477.0 ALLERGIC RHINITIS DUE TO POLLEN 05/26/2012 KIMBERLY PINZON APRN R 477.0 ALLERGIC RHINITIS DUE TO POLLEN 05/26/2012 ORTEZ DO KANE K 477.0 ALLERGIC RHINITIS DUE TO POLLEN 05/26/2012 ORTEZ DO, KANE K 477.0 ALLERGIC RHINITIS DUE TO POLLEN 05/26/2012 PHIL MATUTE MD 477.0 ALLERGIC RHINITIS DUE TO POLLEN 05/26/2012 ORTEZ DO, KANE K 477.0 ALLERGIC RHINITIS DUE TO POLLEN 06/06/2012 ORTEZ DO, KANE K 729.1 muscle aches, generalized (myalgias) 06/06/2012 HAO LSCS, HENRIQUE R 729.1 muscle aches, generalized (myalgias) 06/06/2012 HAO LSCS, HENRIQUE R 729.1 muscle aches, generalized (myalgias) 06/06/2012 HAO LSCS, HENRIQUE R 729.1 muscle aches, generalized (myalgias) 06/06/2012 KIMBERLY PINZON APRN R 729.1 muscle aches, generalized (myalgias) 06/06/2012 729.1 muscle aches, generalized (myalgias) 06/06/2012 729.1 muscle aches, generalized (myalgias) 06/06/2012 RACHAEL CHEATHAM APRN 729.1 muscle aches, generalized (myalgias) 06/06/2012 KIMBERLY PINZON APRN R 729.1 muscle aches, generalized (myalgias) 06/06/2012 ORTEZ DO KANE K 729.1 muscle aches, generalized (myalgias) 06/06/2012 ORTEZ DO, KANE K 729.1 muscle aches, generalized (myalgias) 06/06/2012 PHIL MATUTE MD 729.1 muscle aches, generalized (myalgias) 06/06/2012 ORTEZ DO, KANE K 729.1 muscle aches, generalized (myalgias) 07/07/2012 Ot 311 DEPRESSIVE DISORDER NEC 08/03/2012 ORTEZ DO KANE K 301.83 PD BORDERLINE 08/03/2012 [facility], HENRIQUE R 301.83 PD BORDERLINE 08/03/2012 [facility], HENRIQUE R 301.83 PD BORDERLINE 08/03/2012 [facility], HENRIQUE R 301.83 PD BORDERLINE 08/03/2012 KIMBERLY PINZON APRN R 301.83 PD BORDERLINE 08/03/2012 301.83 PD BORDERLINE 08/03/2012 301.83 PD BORDERLINE 08/03/2012 RACHAEL CHEATHAM APRN 301.83 PD BORDERLINE 08/03/2012 KIMBERLY PINZON APRN R 301.83 PD BORDERLINE 08/03/2012 ORTEZ DO KANE K 301.83 PD BORDERLINE 08/03/2012 ORTEZ DO KANE K 301.83 PD BORDERLINE 08/03/2012 PHIL MATUTE MD 301.83 PD BORDERLINE 08/03/2012 ORTEZ DO KANE K 301.83 PD BORDERLINE 08/09/2012 ORTEZ DO KANE K 305.1 NONDEPENDENT TOBACCO USE DISORDER 08/09/2012 [facility], HENRIQUE R 305.1 NONDEPENDENT TOBACCO USE DISORDER 08/09/2012 [facility], HENRIQUE R 305.1 NONDEPENDENT TOBACCO USE DISORDER 08/09/2012 [facility], HENRIQUE R 305.1 NONDEPENDENT TOBACCO USE DISORDER 08/09/2012 KIMBERLY PINZON APRN R 305.1 NONDEPENDENT TOBACCO USE DISORDER 08/09/2012 305.1 NONDEPENDENT TOBACCO USE DISORDER 08/09/2012 305.1 NONDEPENDENT TOBACCO USE DISORDER 08/09/2012 RACHAEL CHEATHAM APRN 305.1 NONDEPENDENT TOBACCO USE DISORDER 08/09/2012 KIMBERLY PINZON APRN R 305.1 NONDEPENDENT TOBACCO USE DISORDER 08/09/2012 ORTEZ DO KANE K 305.1 NONDEPENDENT TOBACCO USE DISORDER 08/09/2012 ORTEZ DO KANE K 305.1 NONDEPENDENT TOBACCO USE DISORDER 08/09/2012 PHIL MATUTE MD 305.1 NONDEPENDENT TOBACCO USE DISORDER 08/09/2012 ORTEZ DO KANE K 305.1 NONDEPENDENT TOBACCO USE DISORDER 08/14/2012 ORTEZ DO KANE K 314.01 ADHD COMBINED 08/14/2012 ORTEZ DO KANE K V58.69 MEDICATION HIGH RISK 08/14/2012 [facility], HENRIQUE R 314.01 ADHD COMBINED 08/14/2012 [facility], HENRIQUE R V58.69 MEDICATION HIGH RISK 08/14/2012 [facility], HENRIQUE R 314.01 ADHD COMBINED 08/14/2012 [facility], HENRIQUE R V58.69 MEDICATION HIGH RISK 08/14/2012 [facility], HENRIQUE R 314.01 ADHD COMBINED 08/14/2012 [facility], [place]RI[facility] R V58.69 MEDICATION HIGH RISK 08/14/2012 JEROMY AJ KIMBERLY R 314.01 ADHD COMBINED 08/14/2012 JEROMY AJ, KIMBERLY R V58.69 MEDICATION HIGH RISK 08/14/2012 314.01 ADHD COMBINED 08/14/2012 V58.69 MEDICATION HIGH RISK 08/14/2012 314.01 ADHD COMBINED 08/14/2012 V58.69 MEDICATION HIGH RISK 08/14/2012 RACHAEL CHEATHAM APRN T 314.01 ADHD COMBINED 08/14/2012 RACHAEL CHEATHAM APRN V58.69 MEDICATION HIGH RISK 08/14/2012 YOANA PINZON APRNRICIA R 314.01 ADHD COMBINED 08/14/2012 JEROMY AJ KIMBERLY R V58.69 MEDICATION HIGH RISK 08/14/2012 ORTEZ DO, KANE K 314.01 ADHD COMBINED 08/14/2012 ORTEZ , KANE K V58.69 MEDICATION HIGH RISK 08/14/2012 ORTEZ DO, KANE K 314.01 ADHD COMBINED 08/14/2012 ORTEZ DO, KANE K V58.69 MEDICATION HIGH RISK 08/14/2012 PIHL MATUTE MD 314.01 ADHD COMBINED 08/14/2012 PHIL MATUTE MD V58.69 MEDICATION HIGH RISK 08/14/2012 ORTEZ DO, KANE K 314.01 ADHD COMBINED 08/14/2012 ORTEZ DO, KANE K V58.69 MEDICATION HIGH RISK 09/15/2012 ORTEZ DO, KANE K 780.39 SEIZURES OTHER 09/15/2012 [facility], HENRIQUE R 780.39 SEIZURES OTHER 09/15/2012 [facility], HENRIQUE R 780.39 SEIZURES OTHER 09/15/2012 [facility], HENRIQUE R 780.39 SEIZURES OTHER 09/15/2012 JAQUELINE PINZON APRNIA R 780.39 SEIZURES OTHER 09/15/2012 780.39 SEIZURES [...] K 724.1 PAIN IN THORACIC SPINE 10/19/2012 [facility], HENRIQUE R 724.1 PAIN IN THORACIC SPINE 10/19/2012 [facility], HENRIQUE R 724.1 PAIN IN THORACIC SPINE 10/19/2012 [facility], HENRIQUE R 724.1 PAIN IN THORACIC SPINE 10/19/2012 KIMBERLY PINZON APRN R 724.1 PAIN IN THORACIC SPINE 10/19/2012 724.1 PAIN IN THORACIC SPINE 10/19/2012 724.1 PAIN IN THORACIC SPINE 10/19/2012 KIMBERLY PINZON APRN R 724.1 PAIN IN THORACIC SPINE 10/19/2012 ORTEZ DO, KANE K 724.1 PAIN IN THORACIC SPINE 10/19/2012 ORTEZ DO, KANE K 724.1 PAIN IN THORACIC SPINE 10/19/2012 PHIL MATUTE MD 724.1 PAIN IN THORACIC SPINE 10/19/2012 ORTEZ DO, KANE K 724.1 PAIN IN THORACIC SPINE 10/24/2012 [facility], HENRIQUE R 301.9 PD PERS DIS NOS 10/24/2012 [facility], [place]ENRI[place] R 301.9 PD PERS DIS NOS 10/24/2012 [facility], [place]EN[place] R 301.9 PD PERS DIS NOS 10/24/2012 KIMBERLY PINZON APRN R 301.9 PD PERS DIS NOS 10/24/2012 301.9 PD PERS DIS NOS 10/24/2012 301.9 PD PERS DIS NOS 10/24/2012 KIMBERLY PINZON APRN R 301.9 PD PERS DIS NOS 10/24/2012 JAYLON ORTEZ DOA K 301.9 PD PERS DIS NOS 10/24/2012 ORTEZ JAYLON WALLACEA K 301.9 PD PERS DIS NOS 10/24/2012 PHIL MATUTE MD 301.9 PD PERS DIS NOS 10/24/2012 KANE ORTEZ DO K 301.9 PD PERS DIS NOS 12/25/2012 [facility], [place] R 008.8 GASTROENTERITIS VIRAL 12/25/2012 KIMBERLY PINZON APRN R 008.8 GASTROENTERITIS VIRAL 12/25/2012 008.8 GASTROENTERITIS VIRAL 12/25/2012 008.8 GASTROENTERITIS VIRAL 12/25/2012 KIMBERLY PINZON APRN R 008.8 GASTROENTERITIS VIRAL 12/25/2012 JAYLON ORTEZ DOA K 008.8 GASTROENTERITIS VIRAL 12/25/2012 NEELIMA WALLACE KANE K 008.8 GASTROENTERITIS VIRAL 12/25/2012 PHIL MATUTE MD 008.8 GASTROENTERITIS VIRAL 12/25/2012 NEELIMA WALLACE KANE K 008.8 GASTROENTERITIS VIRAL 02/06/2013 KIMBERLY PINZON APRN R 786.2 cough 02/06/2013 786.2 cough 02/06/2013 786.2 cough 02/06/2013 KIMBERLY PINZON APRN R 786.2 cough 02/06/2013 JAYLON ORTEZ DOA K 786.2 cough 02/06/2013 JAYLON ORTEZ DOA K 786.2 cough 02/06/2013 PHIL MATUTE MD 786.2 cough 02/06/2013 ORTEZ DO KANE K 786.2 cough 08/13/2013 ANGELA SANTANA APRN Ot 719.45 JOINT PAIN-PELVIS 08/13/2013 ANGELA SANTANA APRN Ot 724.3 SCIATICA 08/21/2013 KANE ORTEZ DO K 724.3 SCIATICA 08/21/2013 JAYLON ORTEZ DOA K 724.3 SCIATICA 08/21/2013 PHIL MATUTE MD 724.3 SCIATICA 08/21/2013 JAYLON ORTEZ DOA K 724.3 SCIATICA 01/27/2014 JAYLON ORTEZ DOA K 719.41 PAIN IN JOINT INVOLVING SHOULDER REGION 01/27/2014 PHIL MATUTE MD 719.41 PAIN IN JOINT INVOLVING SHOULDER REGION 01/27/2014 KANE ORTEZ DO 719.41 PAIN IN JOINT INVOLVING SHOULDER REGION 06/27/2014 PHIL MATUTE MD 728.85 SPASM OF MUSCLE 06/27/2014 JAYLON ORTEZ DOA K 728.85 SPASM OF MUSCLE 08/12/2017 Martine Mckenna 708.9 UNSPECIFIED URTICARIA 08/12/2017 Martine Mckenna L50.9 URTICARIA, UNSPECIFIED 10/24/2017 RACHAEL CHEATHAM BEEF BREAKER Ot R10.31 RIGHT LOWER QUADRANT PAIN 01/29/2018 RACHAEL CHEATHAM BEEF BREAKER Ot R10.31 RIGHT LOWER QUADRANT PAIN 01/29/2018 ANGELA SANTANA APRN Ot F32.9 MAJOR DEPRESSIVE DISORDER, SINGLE EPISOD 01/29/2018 ANGELA SANTANA APRN Ot F41.9 ANXIETY DISORDER, UNSPECIFIED 01/29/2018 ANGELA SANTANA APRN Ot F43.10 POST-TRAUMATIC STRESS DISORDER, UNSPECIF 01/29/2018 ANGELA SANTANA APRN Ot N92.6 IRREGULAR MENSTRUATION, UNSPECIFIED 01/29/2018 ANGELA SANTANA APRN Ot N93.9 ABNORMAL UTERINE AND VAGINAL BLEEDING, U 01/29/2018 ANGELA SANTANA APRN Ot R11.2 NAUSEA WITH VOMITING, UNSPECIFIED 01/29/2018 ANGELA SANTANA APRN Ot Z79.52 CENTER MGR (CURRENT) USE OF SYSTEMIC STER 01/29/2018 ANGELA SANTANA APRN Ot Z87.891 PERSONAL HISTORY OF NICOTINE DEPENDENCE 01/29/2018 ANGELA SANTANA APRN Ot Z88.0 ALLERGY STATUS TO PENICILLIN 01/29/2018 ANGELA SANTANA APRN Ot Z88.1 ALLERGY STATUS TO OTHER ANTIBIOTIC AGENT 01/29/2018 ANGELA SANTANA APRN Ot Z98.51 TUBAL LIGATION STATUS 01/29/2018 RACHAEL CHEATHAM BEEF BREAKER Ot R10.31 RIGHT LOWER QUADRANT PAIN 01/31/2018 ANGELA SANTANA APRN Ot F32.9 MAJOR DEPRESSIVE DISORDER, SINGLE EPISOD 01/31/2018 ANGELA SANTANA APRN Ot F41.9 ANXIETY DISORDER, UNSPECIFIED 01/31/2018 ANGELA SANTANA APRN Ot F43.10 POST-TRAUMATIC STRESS DISORDER, UNSPECIF 01/31/2018 ANGELA SANTANA APRN Ot N92.6 IRREGULAR MENSTRUATION, UNSPECIFIED 01/31/2018 ANGELA SANTANA APRN Ot N93.9 ABNORMAL UTERINE AND VAGINAL BLEEDING, U 01/31/2018 ANGELA SANTANA APRN Ot R11.2 NAUSEA WITH VOMITING, UNSPECIFIED 01/31/2018 ANGELA SANTANA APRN Ot Z79.52 CARE HOME (CURRENT) USE OF SYSTEMIC STER 01/31/2018 ANGELA SANTANA SURVEY RODMAN Ot Z87.891 PERSONAL HISTORY OF NICOTINE DEPENDENCE 01/31/2018 ANGELA SANTANA SURVEY RODMAN Ot Z88.0 ALLERGY STATUS TO PENICILLIN 01/31/2018 ANGELA SANTANA SURVEY RODMAN Ot Z88.1 ALLERGY STATUS TO OTHER ANTIBIOTIC AGENT 01/31/2018 ANGELA SANTANA SURVEY RODMAN Ot Z98.51 TUBAL LIGATION STATUS 03/02/2018 RACHAEL CHEATHAM BEEF BREAKER Ot R10.31 RIGHT LOWER QUADRANT PAIN 03/14/2018 RACHAEL CHEATHAM BEEF BREAKER Ot R10.31 RIGHT LOWER QUADRANT PAIN 03/20/2018 JOE EVANS, YESENIA Ot N63.10 UNSPECIFIED LUMP IN THE RIGHT BREAST, UN 03/20/2018 JOE EVANS, YESENIA Ot N63.20 UNSPECIFIED LUMP IN THE LEFT BREAST, UNS 03/20/2018 JOE EVANS, YESENIA Ot N64.52 NIPPLE DISCHARGE 03/20/2018 JOE EVANS, YESENIA Ot R92.8 OTH ABN AND INCONCLUSIVE FINDINGS ON DX Procedures Code Description Performed By Performed On Physical Physical Therapy, [facility] 09/11/2012 09954 XRAY CERVICAL SPINE, 2 OR 3 VIEWS 10/19/2012 76110 XRAY THORACIC SPINE 2 VIEWS 10/19/2012 80823 PSYCH DIAG INTER EXAM 11/01/2012 68500 PSYTX PT&/FAMILY 45 MINUTES 12/13/2012 76619 PSYCH PHARM MGMT 12/13/2012 07420 INFLUENZA A & B (IN-HOUSE) 12/25/2012 06175 PSYTX PT&/FAMILY 45 MINUTES 12/27/2012 19318 PSYCH PHARM MGMT 02/08/2013 00601 ROUTINE VENIPUNCTURE 03/25/2013 67547 URINE DRUG SCREEN (IN-HOUSE ) 03/25/2013 11943 CBC 03/25/2013 48519 CMP 03/25/2013 4765121 GFR CALC (RESULT ONLY) 03/25/2013 85491 CPK 03/25/2013 00347 XRAY SHOULDER LEFT COMP 2 VIEWS 01/27/2014 Orthopedi Hemant Campbell 06/27/2014 Results Test Result Range [facility] - 08/17/17 09:02 Glucose, Serum 109 mg/dL 65-99 BUN 9 mg/dL 6-20 Creatinine, Serum 0.81 mg/dL 0.57-1.00 eGFR If NonAfricn Am 94 mL/min/1.73 >59 eGFR If Africn Am 109 mL/min/1.73 >59 BUN/Creatinine Ratio 11 9-23 Sodium, Serum 139 mmol/L 134-144 Potassium, Serum 4.2 mmol/L 3.5-5.2 Chloride, Serum 99 mmol/L 96-106 Carbon Dioxide, Total 22 mmol/L 18-29 Calcium, Serum 9.3 mg/dL 8.7-10.2 Protein, Total, Serum 6.7 g/dL 6.0-8.5 Albumin, Serum 3.9 g/dL 3.5-5.5 Globulin, Total 2.8 g/dL 1.5-4.5 A/G Ratio 1.4 1.2-2.2 Bilirubin, Total <0.2 mg/dL 0.0-1.2 Alkaline Phosphatase, S 177 IU/L 39-117 AST (SGOT) 48 IU/L 0-40 ALT (SGPT) 251 IU/L 0-32 Complete blood count (CBC) with automated white blood cell (WBC) differential - 01/29/18 12:25 Blood leukocytes automated count (number/volume) 12.1 10*3/uL 4.3-11.0 Blood erythrocytes automated count (number/volume) 4.65 10*6/uL 4.35-5.85 Venous blood hemoglobin measurement (mass/volume) 14.4 g/dL 11.5-16.0 Blood hematocrit (volume fraction) 41 % 35-52 Automated erythrocyte mean corpuscular volume 88 [foz_us] 80-99 Automated erythrocyte mean corpuscular hemoglobin (mass per erythrocyte) 31 pg 25-34 Automated erythrocyte mean corpuscular hemoglobin concentration measurement ( mass/volume) 35 g/dL 32-36 Automated erythrocyte distribution width ratio 13.8 % 10.0-14.5 Automated blood platelet count (count/volume) 342 10*3/uL 130-400 Automated blood platelet mean volume measurement 9.4 [foz_us] 7.4-10.4 Automated blood neutrophils/100 leukocytes 78 % 42-75 Automated blood lymphocytes/100 leukocytes 16 % 12-44 Blood monocytes/100 leukocytes 6 % 0-12 Automated blood eosinophils/100 leukocytes 0 % 0-10 Automated blood basophils/100 leukocytes 0 % 0-10 Blood neutrophils automated count (number/volume) 9.4 10*3 1.8-7.8 Blood lymphocytes automated count (number/volume) 1.9 10*3 1.0-4.0 Blood monocytes automated count (number/volume) 0.7 10*3 0.0-1.0 Automated eosinophil count 0.0 10*3/uL 0.0-0.3 Automated blood basophil count (count/volume) 0.0 10*3/uL 0.0-0.1 Urine beta human chorionic gonadotropin (hCG) measurement - 01/29/18 12:25 Urine beta human chorionic gonadotropin (hCG) measurement NEGATIVE NEGATIVE Complete urinalysis with reflex to culture - 01/29/18 12:25 Urine color determination YELLOW NRG Urine clarity determination SLIGHTLY CLOUDY NRG Urine pH measurement by test strip 6.5 5-9 Specific gravity of urine by test strip 1.010 1.016- 1.022 Urine protein assay by test strip, semi-quantitative 2+ NEGATIVE Urine glucose detection by automated test strip NEGATIVE NEGATIVE Erythrocytes detection in urine sediment by light microscopy 1+ NEGATIVE Urine ketones detection by automated test strip 4+ NEGATIVE Urine nitrite detection by test strip NEGATIVE NEGATIVE Urine total bilirubin detection by test strip NEGATIVE NEGATIVE Urine urobilinogen measurement by automated test strip (mass/volume) 1 mg/dL NORMAL Urine leukocyte esterase detection by dipstick 1+ NEGATIVE Automated urine sediment erythrocyte count by microscopy (number/high power field) [HPF] NRG Automated urine sediment leukocyte count by microscopy (number/high power field ) [HPF] NRG Bacteria detection in urine sediment by light microscopy TRACE NRG Squamous epithelial cells detection in urine sediment by light microscopy 10-25 NRG Crystals detection in urine sediment by light microscopy NONE NRG Casts detection in urine sediment by light microscopy NONE NRG Mucus detection in urine sediment by light microscopy MODERATE NRG Complete urinalysis with reflex to culture NO NRG Comprehensive metabolic panel - 01/29/18 12:25 Serum or plasma sodium measurement (moles/volume) 139 mmol/L 135-145 Serum or plasma potassium measurement (moles/volume) 3.4 mmol/L 3.6-5.0 Serum or plasma chloride measurement (moles/volume) 103 mmol/L 98-107 Carbon dioxide 26 mmol/L 21-32 Serum or plasma anion gap determination (moles/volume) 10 mmol/L 5-14 Serum or plasma urea nitrogen measurement (mass/volume) 8 mg/dL 7-18 Serum or plasma creatinine measurement (mass/volume) 0.72 mg/dL 0.60-1.30 Serum or plasma urea nitrogen/creatinine mass ratio 11 NRG Serum or plasma creatinine measurement with calculation of estimated glomerular filtration rate > NRG Serum or plasma glucose measurement (mass/volume) 93 mg/dL 70-105 Serum or plasma calcium measurement (mass/volume) 8.9 mg/dL 8.5-10.1 Serum or plasma total bilirubin measurement (mass/volume) 0.5 mg/dL 0.1-1.0 Serum or plasma alkaline phosphatase measurement (enzymatic activity/volume) 138 U/L 40-136 Serum or plasma aspartate aminotransferase measurement (enzymatic activity/ volume) 17 U/L 5-34 Serum or plasma alanine aminotransferase measurement (enzymatic activity/volume ) 17 U/L 0-55 Serum or plasma protein measurement (mass/volume) 7.6 g/dL 6.4-8.2 Serum or plasma albumin measurement (mass/volume) 4.3 g/dL 3.2-4.5 Lipase - 01/29/18 12:25 Lipase 7 U/L 8-78 Serum or plasma choriogonadotropin measurement (units/volume) - 01/29/18 12:25 Serum or plasma choriogonadotropin measurement (units/volume) < m[iU ]/mL <5 LITHIUM (ESKALITH(R)), SERUM - 02/14/18 12:19 LITHIUM 0.3 mmol/L 0.6-1.2 CULTURE, GENITAL - 02/14/18 12:19 CULTURE, GENITAL SEE NOTE [facility] SUREPATH PAP RFX HPV mRNA E6/E7 - 02/14/18 12:19 CLINICAL INFORMATION: NR LMP: NRG PREV. PAP: NRG PREV. BX: NRG SOURCE: Cervix NR STATEMENT OF ADEQUACY: [facility] INTERPRETATION/RESULT: [facility] NEW BUSINESS CLERK: MELLY COMMENT NR CBC - 02/14/18 12:19 WHITE BLOOD CELL COUNT 7.6 Thousand/uL 3.8-10.8 RED BLOOD CELL COUNT 4.61 Million/uL 3.80-5.10 HEMOGLOBIN 13.8 g/dL 11.7-15.5 HEMATOCRIT 41.4 % 35.0-45.0 MCV 89.8 fL 80.0-100.0 MCH 29.9 pg 27.0-33.0 MCHC 33.3 g/dL 32.0-36.0 RDW 13.6 % 11.0-15.0 PLATELET COUNT 256 Thousand/uL 140-400 MPV 9.8 fL 7.5-12.5 ABSOLUTE NEUTROPHILS 5214 cells/uL 8136-0395 ABSOLUTE LYMPHOCYTES 1634 cells/uL 850-3900 ABSOLUTE MONOCYTES 562 cells/uL 200-950 ABSOLUTE EOSINOPHILS 122 cells/uL 15-500 ABSOLUTE BASOPHILS 68 cells/uL 0-200 NEUTROPHILS 68.6 % NRG LYMPHOCYTES 21.5 % NRG MONOCYTES 7.4 % NRG EOSINOPHILS 1.6 % NRG BASOPHILS 0.9 % NRG TSH - 02/14/18 12:19 TSH 0.99 mIU/L NRG LITHIUM (ESKALITH(R)), SERUM - 06/07/18 12:07 LITHIUM <0.3 mmol/L 0.6-1.2 Encounters ACCT No. Visit Date/Time Discharge Status Pt. Type Provider Facility Loc./Unit Complaint [id number] 06/20/2018 12:00:00 06/20/2018 23:59:59 CLS Outpatient RACHAEL CHEATHAM APRN [facility] [id number] 06/07/2018 11:40:00 Document Registration [id number] 04/19/2018 11:40:00 Document Registration [id number] 04/23/2018 13:00:00 04/23/2018 23:59:59 CLS Outpatient RACHAEL CHEATHAM APRN [facility] [id number] 04/19/2018 11:40:00 Document Registration [id number] 02/14/2018 11:00:00 Document Registration [id number] 08/17/2017 09:00:00 Document Registration [id number] 08/12/2017 11:51:00 08/12/2017 13:39:00 DIS [place], [facility] [place] [id number] 08/12/2017 13:15:44 Document Registration [id number] 03/14/2018 13:27:00 03/14/2018 23:59:59 CLS Outpatient JOE EVANS, YESENIA [facility] NIPPLE DISCHARGE [id number] 01/29/2018 09:39:00 01/29/2018 13:55:00 DIS Emergency ANGELA SANTANA APRN [facility] ER VOMITING [id number] 09/25/2017 14:06:00 09/25/2017 23:59:59 CLS Outpatient RACHAEL CHEATHAM [facility] RAD R10.31 ABDOMINAL PAIN , RIGHT LOWER QUADRANT [id number] 08/13/2013 18:17:00 08/13/2013 19:30:00 DIS Emergency ANGELA SANTANA SURVEY RODMAN [facility] ER RT HIP PAIN [id number] 07/06/2013 17:30:00 07/06/2013 23:59:59 CLS Outpatient [id number] 07/07/2012 10:59:00 Document Registration [id number] 05/08/2012 09:03:00 Document Registration [id number] 05/04/2012 11:25:00 Document Registration [id number] 07/17/2014 13:43:00 07/17/2014 23:59:59 CLS Outpatient KANE ORTEZ DO [id number] 06/27/2014 09:30:00 06/27/2014 23:59:59 CLS Outpatient PHIL MATUTE MD [id number] 01/27/2014 14:32:00 01/27/2014 23:59:59 CLS Outpatient KANE ORTEZ DO [id number] 08/21/2013 11:24:00 08/21/2013 23:59:59 CLS Outpatient KANE ORTEZ DO [id number] 07/01/2013 17:32:00 07/01/2013 23:59:59 CLS Outpatient KIMBERLY PINZON APRN [id number] 02/06/2013 14:02:00 02/06/2013 23:59:59 CLS Outpatient KIMBERLY PINZON APRN [id number] 12/27/2012 13:48:00 12/27/2012 23:59:59 CLS Outpatient HENRIQUE ROTH [id number] 12/13/2012 13:44:00 12/13/2012 23:59:59 CLS Outpatient HENRIQUE ROTH [id number] 11/01/2012 10:39:00 11/01/2012 23:59:59 CLS Outpatient HENRIQUE ROTH [id number] 10/19/2012 13:43:00 10/19/2012 23:59:59 CLS Outpatient [place]TEZ [place], [place] [id number] 08/14/2012 16:53:00 08/14/2012 23:59:59 CLS Outpatient RACHAEL CHEATHAM APRN [id number] 05/13/2013 10:18:00 Document Registration [id number] 03/25/2013 11:12:00 Document Registration
[2018-08-03] MEDS ORDERED: LITH300T3 (08:59)
[2018-08-03] MEDS ORDERED: PRAZ5CAP2 (08:59)
[2018-08-03] MEDS ORDERED: DESV100T (08:59)
[2018-08-03] MEDS ORDERED: fentaNYL INJECTION 100 MCG/2 ML AMP IJ ONE (09:00)
--- NOTE | 2018-08-03 09:00 | ED Hip Pain/Injury ---
General Chief Complaint: Hip/Pelvic Problems Stated Complaint: HIP AND LEG PAIN Source: patient Exam Limitations: no limitations History of Present Illness Date Seen by Provider: Aug 03, 2018 Time Seen by Provider: 08:56 Initial Comments This 37-year-old female presents with a complaint of left hip pain that began yesterday. The patient has had previous sciatica. Patient's pain is sharp in nature and radiates down her left leg. She's had no associated numbness, tingling, or weakness of the left lower extremity. The patient denies recent or remote trauma to the back or hip. The patient states that her distant sciatica has not recurred following the initial presentation. She does not know what imaging has been done in the past. Patient's pain is sharp in nature, it is severe, and it is made worse with movement of the left hip. Patient denies a history of arthritis or gout. Allergies and Home Medications Allergies Coded Allergies: Penicillins (Unverified Allergy, Mild, 07/09/09) Cephalexin Monohydrate (Unverified Allergy, Unknown, 05/04/12) Patient Home Medication List Home Medication List Reviewed: Yes Review of Systems Constitutional: No chills EENTM: No hearing loss Respiratory: No cough Cardiovascular: No chest pain Gastrointestinal: No abdominal pain, No nausea, No vomiting Genitourinary: No decreased output : No Musculoskeletal: see HPI, joint pain (left hip.) Skin: No change in color, No rash Psychiatric/Neurological: Depressed Past Dvihixr-Yihzck-Kbettk Hx Past Med/Social Hx: Reviewed Nursing Past Med/Soc Hx Patient Social History Alcohol Use: Rarely Uses Recreational Drug Use: No Smoking Status: Current Everyday Smoker Former Smoker, Quit: Dec 14, 2017 Recent Hopitalizations: No Physical Abuse: No Sexual Abuse: No Seasonal Allergies Seasonal Allergies: No Past Medical History Surgeries: Yes Tubal Ligation Respiratory: No Cardiac: No Neurological: No 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 Disorders: No [employer] History: Tubal Ligation Genitourinary: No Gastrointestinal: No Musculoskeletal: No Endocrine: No HEENT: No Cancer: No Psychosocial: Yes Anxiety, PTSD, Depression Integumentary: No Physical Exam Vital Signs Vital Signs - First Documented 08/03/18 08:52 Temp 97.2 Pulse 118 Resp 20 B/P (MAP) 151/105 (120) Pulse Ox 99 Capillary Refill : Height, Weight, BMI Height: 5'3.00" Weight: 245lbs. oz. 111.903168cw; BMI Method:Stated General Appearance: No Apparent Distress, WD/WN Neck: Normal Inspection Cardiovascular: Regular Rate, Rhythm Respiratory: Lungs Clear Gastrointestinal: Normal Bowel Sounds Back: Normal Inspection, Vertebral Tenderness (there is tenderness over the posterior process of L2.) Extremity: Other (there is pain with movement of the left hip.) Neurologic/Psychiatric: Alert, Oriented x3, No Motor/Sensory Deficits Skin: Normal Color, Warm/Dry Progress/Results/Core Measures Results/Orders My Orders Orders - AJ CORRALES MD Fentanyl Injection (Sublimaze Injection (08/03/18 09:00) Ct Lumbar Spine Wo (08/03/18 09:00) Ct Extremity Lower Left Wo (08/03/18 09:00) Medications Given in ED Current Medications Medications Dose Ordered Sig/North Route Start Time Stop Time Status Last Admin Dose Admin Fentanyl Citrate 50 mcg ONCE ONCE IJ 08/03/18 09:00 08/03/18 09:02 DC 08/03/18 09:29 50 MCG Vital Signs/I&O 08/03/18 08:52 Temp 97.2 Pulse 118 Resp 20 B/P (MAP) 151/105 (120) Pulse Ox 99 Progress Progress Note : Time: 11:01 Progress Note Patient was symptomatically improved with 50 g of fentanyl IM. CT demonstrated evidence of mild degenerative changes in the lumbar spine. Left hip failed to show evidence of fracture or dislocation. The patient was asked follow up closely with her primary care physician on Monday. She was given tramadol for pain over the weekend. She was asked to return if any acute problems or questions. Departure Impression Primary Impression: Hip pain, left Disposition: HOME, SELF-CARE Condition: Improved Departure-Patient Inst. Decision time for Depature: 11:03 Referrals: PHIL MATUTE MD (PCP) Primary Care Physician RACHAEL CHEATHAM (Family) Primary Care Physician Patient Instructions: Hip Pain Add. Discharge Instructions: Follow-up with your caregivers on Monday. Tramadol for pain. Rest this . Return if any problems or questions. All discharge instructions reviewed with patient and/or family. Voiced understanding. JA CORRALES MD Aug 03, 2018 09:00
--- NOTE | 2018-08-03 10:20 | Diagnostic Imaging Report ---
Clinical indication: Patient with left hip pain for 2 days. No injury. Exam: CT scan lumbar spine performed without IV contrast with sagittal and coronal reformatted images. Comparison: X-ray of the lumbar spine dated 11/26/2013. Findings: There is no evidence of acute lumbar spine fracture or dislocation. There is no significant bony central canal or neural foramen narrowing. There is minimal anterior spurring seen throughout the lumbar spine. There is chronic appearing Schmorl's node involving the anterior superior aspect of the L2 vertebra. There is no significant paraspinal soft tissue abnormality. Impression: 1. There is no acute lumbar spine fracture or dislocation. 2. 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 Dictated by: Dictated on workstation # [id number]
--- NOTE | 2018-08-03 11:15 | Diagnostic Imaging Report ---
PROCEDURE: CT left lower extremity without contrast. TECHNIQUE: Multiple contiguous axial images were obtained through the left lower extremity without the use of intravenous contrast. Sagittal and coronal reformations were then performed. INDICATION: Left hip pain. There is no fracture, dislocation or acute bony abnormality evident. There is only mild degenerative disease of the left hip. When compared to the previous CT abdomen/pelvis exam of 05/04/2012, there does not appear to have been any significant change in the appearance of the left hip. If clinical concern regarding an underlying [place] persists, then MRI would be recommended for further study. There is no pelvic mass or free fluid collection identified. There is a 2.3 x 2.3 cm rounded area of low density in the left adnexa. Whether this is secondary to the left ovary itself or to a cyst arising from left ovary is not certain. If further study is desired, ultrasound should be considered. The soft tissues are otherwise unremarkable. IMPRESSION: 1. There is no evidence for acute bony abnormality. 2. There is a question of a cyst arising from the left ovary. Recommendations as above. 3. These results were discussed with Dr. Fontana in the ER. Dictated by: Dictated on workstation # [id number]
[2018-08-03] MEDS ORDERED: fentaNYL INJECTION 100 MCG/2 ML AMP ONE (11:17)
[2018-08-03] MEDS ORDERED: fentaNYL INJECTION 100 MCG/2 ML AMP IVP ONE (11:30)
[2018-08-03 11:32] VITALS: BP 151/105
== END 2018-08-03 11:32 | disposition home or self-care (01) ==
LOC: EDUNIT# 07:59 → ER 08:00
DX: M25.552 Pain in left hip (principal); F41.9 Anxiety disorder, unspecified; F43.10 Post-traumatic stress disorder, unspecified; F32.9 Major depressive disorder, single episode, unspecified; Z88.0 Allergy status to penicillin; Z88.1 Allergy status to other antibiotic agents; Z87.891 Personal history of nicotine dependence; Z98.51 Tubal ligation status
CPT/HCPCS: 72131; 73700; 96372; 96374

== ENCOUNTER → 2019-10-29 | Outpatient (CLI) | payer OTHER ==
[~2019-10-29] MED LIST changes: +DESV100T; +LITH300T3; +PRAZ5CAP2
--- NOTE | 2019-10-29 15:39 | Diagnostic Imaging Report ---
INDICATION: Lump in the posterior neck. TECHNIQUE/FINDINGS: Interrogation of the area of lump was performed. No sonographic abnormality is seen. No solid or cystic mass is detected. IMPRESSION: No sonographic abnormality is seen. If further evaluation is warranted, CT or MRI could be performed for further evaluation. Dictated by: Dictated on workstation # [id number]
== END ==
LOC: RAD 12:42
PROVIDERS: ATTEND Nurse Practitioner Community Health
DX: R22.1 Localized swelling, mass and lump, neck (principal)
CPT/HCPCS: 76536

== ENCOUNTER 2021-08-06 16:17 | Emergency (ER) | payer SELFPAY ==
[~2021-08-06] VITALS: Ht 160 cm; Wt 115.0 kg
[2021-08-06 16:24] VITALS: BP 148/88
--- NOTE | 2021-08-06 16:29 | ED Upper Extremity ---
General Stated Complaint: L HAND SWELLING/BRUISING/PAIN Source: patient Exam Limitations: no limitations History of Present Illness Date Seen by Provider: Aug 06, 2021 Time Seen by Provider: 16:25 Initial Comments 40-year-old female with past medical history of rheumatoid arthritis and ankylosing spondylitis coming in due to left thumb pain. She is right-hand dominant. She was picking up a tote she said in the storage unit a couple of hours ago when she felt a pop on the dorsal aspect of her left thumb with immediate pain. Swelling and bruising occurred shortly after. Pain is sharp, intermittent and worse with movement, better with rest. Pain is moderate. Never had an injury like this before. Denies any orthopedic surgeries in the past. Has had a tubal ligation and LMP was a couple weeks ago. Is otherwise denying any other acute complaints. Allergies and Home Medications Allergies Coded Allergies: Penicillins (Unverified Allergy, Mild, 07/09/09) Cephalexin Monohydrate (Unverified Allergy, Unknown, 05/04/12) Patient Home Medication List Home Medication List Reviewed: Yes Desvenlafaxine Succinate (Pristiq ER) 100 Mg Tab.er.24h, (Reported) Entered as Reported by: NA DAS on 08/03/18 0859 [place] Carbonate ([place] Carbonate) 300 Mg Tablet, (Reported) Entered as Reported by: NA DAS on 08/03/18 0859 Prazosin HCl (Prazosin HCl) 5 Mg Capsule, (Reported) Entered as Reported by: NA DAS on 08/03/18 0859 Review of Systems Constitutional: No fever EENTM: no symptoms reported Cardiovascular: No chest pain Gastrointestinal: No abdominal pain Genitourinary: no symptoms reported Musculoskeletal: joint pain Skin: no symptoms reported Psychiatric/Neurological: No Symptoms Reported All Other Systems Reviewed Negative Unless Noted: Yes Past Xcuyotv-Rhqvia-[place]ys Hx Patient Social History Tobacco Use?: Yes Tobacco type used: Cigarettes Substance use?: Yes Substance type: Marijuana Alcohol Use?: Yes Alcohol Frequency: Rarely Seasonal Allergies Seasonal Allergies: No Past Medical History Surgeries: Yes Tubal Ligation Respiratory: No Cardiac: No Neurological: No 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 oz. 114.071719yw; BMI Method:Stated General Appearance: WD/WN, no apparent distress HEENT: PERRL/EOMI, normal ENT inspection, pharynx normal Neck: non-tender, full range of motion, supple, normal inspection Cardiovascular: regular rate, rhythm, no edema, no murmur Respiratory: chest non-tender, lungs clear, normal breath sounds, no respiratory distress, no accessory muscle use Gastrointestinal: normal bowel sounds, non tender, soft Back: normal inspection Shoulder: normal inspection, non-tender, no evidence of injury Elbow/Forearm: normal inspection, non-tender, no evidence of injury Wrist: Yes normal inspection, Yes non-tender (no scaphoid tenderness), Yes no evidence of injury Hand: Left, ecchymosis (small amount of bruising to extensor aspect of left thumb with minimal amount of swelling and tenderness mostly over MCP joint, able to fully extend/flex/oppose thumb, normal sensation and cap refill), swelling Neurologic/Tendon: normal sensation, normal motor functions Neurologic/Psychiatric: no motor/sensory deficits, alert, normal mood/affect Skin: normal color, warm/dry Lymphatic: no adenopathy Progress/Results/Core Measures Results/Orders My Orders Orders - AMEENA SINHA MD Hand, Left, 3 Views (08/06/21 16:29) Ibuprofen Tablet (Motrin Tablet) (08/06/21 16:30) Medications Given in ED Current Medications Medications Dose Ordered Sig/[place] Start Time Stop Time Status Last Admin Dose Admin Ibuprofen 600 mg ONCE ONCE PO 08/06/21 16:30 08/06/21 16:31 DC 08/06/21 16:40 600 MG Vital Signs/I&O 08/06/21 16:24 Temp 36.4 Pulse 114 Resp 20 B/P (MAP) 148/88 (108) Pulse Ox 98 O2 Delivery Room Air Progress Progress Note : Progress Note 40-year-old female with above history coming in due to left thumb pain in the setting of picking something up and feeling an acute sharp sensation to the extensor surface of her left thumb. ABCs were intact and vitals were stable on presentation. She does have a very minimal amount of bruising and swelling to the extensor surface of her left thumb most notably over her MCP joint. Her extensor mechanism is intact, and I have a very low suspicion for a full- thickness tear. Fracture is also highly unlikely given the mechanism. X-ray ordered to assess and further rule out fracture however. We will also see if there is any obvious bony avulsion. She was given ibuprofen for pain. X-ray of the thumb specifically with no obvious fracture. There is an abnormality with her radius and the radiologist recommended a repeat wrist x-ray to rule out fracture. I did a thorough physical exam of her distal radius however, and she has no pain at all of her radius ruling out a fracture. We placed her in a thumb spica splint and will have her follow-up with a hand surgeon which I gave her information for. She was then discharged home in stable condition with strict return precautions Diagnostic Imaging Diagonstic Imaging: Xray Plain Films/CT/US/NM/MRI: hand Comments [facility], [place] NAME: AARON MONTENEGRO [facility] REC#: [id number] PT STATUS: REG ER : 1980 PHYSICIAN: AMEENA SINHA MD ADMIT DATE: 08/06/21/ER Draft Date of Exam:08/06/21 HAND, LEFT, 3 VIEWS INDICATION: Hand pain. EXAMINATION: Left hand from 08/06/2021. FINDINGS: Three views of the hand. There are no acute fractures or dislocations. Joint spaces are preserved. Soft tissues are unremarkable. There is deformity of the distal radius with alignment of the radiocarpal joint space possibly disrupted. Dedicated wrist radiographs recommended. IMPRESSION: 1. No acute process in the hand. 2. Questionable deformity of the distal radius, which could be chronic; however, alignment at the radiocarpal joint space is difficult to ascertain due to positioning. If there is wrist pain, dedicated wrist radiographs recommended. Dictated on workstation # [id number] Dict: 08/06/21 1656 Trans: 08/06/21 [id number] Interpreted by: LIBBY CONDE MD Electronically signed by: Departure Impression Primary Impression: Thumb pain Qualified Codes: M79.645 - Pain in left finger(s) Disposition: 01 HOME, SELF-CARE Condition: Stable Departure-Patient Inst. Decision time for Depature: 17:08 Referrals: JA CUELLAR DO Patient Instructions: Thumb Sprain ED Add. Discharge Instructions: You were seen in the emergency department for thumb pain after lifting something. X-ray was negative for any obvious break. Please wear the splint unless you are bathing. Please call Dr. Cuellar's office to schedule an appointment, he is a hand specialist. Take 600 mg of ibuprofen every 6 hours for pain and if you have pain on top of that you can take 1000 mg of Tylenol every 6-8 hours as well. AMEENA SINHA MD Aug 06, 2021 16:29
[2021-08-06] MEDS ORDERED: IBUPROFEN 600 MG (MOTRIN) TAB PO ONE (16:30)
--- NOTE | 2021-08-06 17:00 | Diagnostic Imaging Report ---
INDICATION: Hand pain. EXAMINATION: Left hand from 08/06/2021. FINDINGS: Three views of the hand. There are no acute fractures or dislocations. Joint spaces are preserved. Soft tissues are unremarkable. There is deformity of the distal radius with alignment of the radiocarpal joint space possibly disrupted. Dedicated wrist radiographs recommended. IMPRESSION: 1. No acute process in the hand. 2. Questionable deformity of the distal radius, which could be chronic; however, alignment at the radiocarpal joint space is difficult to ascertain due to positioning. If there is wrist pain, dedicated wrist radiographs recommended. Dictated by: Dictated on workstation # [id number]
== END 2021-08-06 17:12 | disposition home or self-care (01) ==
LOC: EDUNIT# 16:17 → ER 16:20
DX: S60.012A Contusion of left thumb without damage to nail, initial encounter (principal); F32.9 Major depressive disorder, single episode, unspecified; Z72.0 Tobacco use; Z79.899 Other long term (current) drug therapy; X50.0XXA Overexertion from strenuous movement or load, initial encounter
CPT/HCPCS: 73130

== ENCOUNTER → 2021-12-13 | Outpatient (CLI) | payer SELFPAY ==
--- NOTE | 2021-12-13 10:32 | Diagnostic Imaging Report ---
EXAMINATION: Left foot radiographs, 3 views. COMPARISON: None. HISTORY: 41-year-old female, followup fracture of the left great toe. FINDINGS: There is a comminuted mildly displaced intra-articular fracture of the first proximal phalanx. Intra-articular fracture extension is at the level of the first interphalangeal joint. There is a well visualized fracture line. There is no identified bony callus bridging. There is no periosteal reaction. There is no gross offset of the articulating surface. There is no subluxation or dislocation. There is no identified radiopaque foreign body. There is a bipartite medial sesamoid. The joint spaces appear well preserved. There is a calcaneal heel spur. IMPRESSION: 1. Comminuted mildly displaced intra-articular fracture of the first proximal phalanx with intraarticular fracture extension at the level of the first interphalangeal joint. No gross offset of the articulating surface. 2. Bipartite medial sesamoid which potentially could relate to a fracture of the medial sesamoid versus a normal variant bipartite medial sesamoid. Recommend correlation for focal pain at this exact site. Dictated by: Dictated on workstation # [id number]
== END ==
LOC: RAD FS 09:38
PROVIDERS: ATTEND Nurse Practitioner
DX: S92.415D Nondisplaced fracture of proximal phalanx of left great toe, subsequent encounter for fracture with routine healing (principal); M86.8X9 Other osteomyelitis, unspecified sites; X58.XXXD Exposure to other specified factors, subsequent encounter
CPT/HCPCS: 73630

== ENCOUNTER → 2021-12-27 | Outpatient (CLI) | payer SELFPAY ==
--- NOTE | 2021-12-27 12:01 | Diagnostic Imaging Report ---
INDICATION: Follow-up fracture of the great toe. Comparison with 12/13/2021. FINDINGS: The previously noted comminuted fracture involving the intra-articulating surface of the proximal phalanx of the first digit at the interphalangeal joint is again noted. This is unchanged in alignment. No significant callus formation has developed as of yet. The interphalangeal joint and MP joint remain in good alignment and appear normal. IMPRESSION: Minimally displaced fracture involving articulating surface of the proximal phalanx first digit appears unchanged in position with no significant callus formation noted at this time. Dictated by: Dictated on workstation # [id number]
== END ==
LOC: RAD FS 09:17
PROVIDERS: ATTEND Nurse Practitioner
DX: S92.415D Nondisplaced fracture of proximal phalanx of left great toe, subsequent encounter for fracture with routine healing (principal); X58.XXXD Exposure to other specified factors, subsequent encounter
CPT/HCPCS: 73630

== ENCOUNTER 2022-07-03 11:14 | Emergency (ER) | payer SELFPAY ==
[~2022-07-03] VITALS: Ht 157 cm; Wt 112.0 kg
[2022-07-03] MEDS ORDERED: CLINDAMYCIN 150 MG (CLEOCIN) CAP PO ONE (11:45)
[2022-07-03] MEDS ORDERED: CLIN150C20 PO (11:49)
--- NOTE | 2022-07-03 11:50 | ED Integumentary General ---
General Chief Complaint: Skin/Wound Problems Stated Complaint: CYSTS R ARMPIT/ABD AREA Source: patient Exam Limitations: no limitations History of Present Illness Date Seen by Provider: Jul 03, 2022 Time Seen by Provider: 11:45 Initial Comments Patient presents for evaluation of swelling/pain under the right axilla, left abdomen and left labia. She states she has had symptoms under the right arm for 1 week and she was started on Bactrim at the urgent care. HOwever, her symptoms have progressed. No other therapies attempted at this time. Timing/Duration: week Severity: moderate Allergies and Home Medications Allergies Coded Allergies: Penicillins (Unverified Allergy, Mild, 07/09/09) Cephalexin Monohydrate (Unverified Allergy, Unknown, 05/04/12) Patient Home Medication List Home Medication List Reviewed: Yes Desvenlafaxine Succinate (Pristiq ER) 100 Mg Tab.er.24h, (Reported) Entered as Reported by: NA DAS on 08/03/18 0859 [place] Carbonate ([place] Carbonate) 300 Mg Tablet, (Reported) Entered as Reported by: NA DAS on 08/03/18 0859 Prazosin HCl (Prazosin HCl) 5 Mg Capsule, (Reported) Entered as Reported by: NA DAS on 08/03/18 0859 Review of Systems Review of Systems Constitutional: no symptoms reported EENTM: no symptoms reported Respiratory: no symptoms reported Cardiovascular: no symptoms reported Gastrointestinal: no symptoms reported Musculoskeletal: no symptoms reported Skin: see HPI Past Vhaexms-Fztzmq-[place]ie Hx Patient Social History Tobacco Use?: No Immunizations Up To Date First/Initial COVID19 Vaccinat: 03/18/2021 Second COVID19 Vaccination Yomi: 04/08/2021 Seasonal Allergies Seasonal Allergies: No Past Medical History Surgeries: Yes Tubal Ligation Respiratory: No Cardiac: No Neurological: No 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 No deep fluctuance or significant cellulitis) Progress/Results/Core Measures Results/Orders My Orders Orders - ARNULFO SANCHEZ Dexamethasone Injection (Decadron Injec (07/03/22 11:45) Clindamycin Capsule (Cleocin Capsule) (07/03/22 11:45) Departure Communication (Admissions) I/D not indicated at this time (no fluctuance). Will switch to clindamycin and start aggressive hot compresses. Impression Primary Impression: Axillary adenitis Disposition: 01 HOME, SELF-CARE Condition: Stable Departure-Patient Inst. Decision time for Depature: 11:48 Referrals: [facility] (PCP) Primary Care Physician DEMI COREAS APRN (Family) Primary Care Physician Patient Instructions: MRSA (DC), Lymphadenitis (DC) Scripts Clindamycin HCl (Clindamycin HCl) 150 Mg Capsule 150 MG PO QID for 10 Days, #80 CAP Prov: ARNULFO SANCHEZ 07/03/22 ARNULFO SANCHEZ Jul 03, 2022 11:50
[2022-07-03 12:14] VITALS: BP 129/81
== END 2022-07-03 12:14 | disposition home or self-care (01) ==
LOC: EDUNIT# 11:14 → ER 11:16
DX: I88.9 Nonspecific lymphadenitis, unspecified (principal); Z88.0 Allergy status to penicillin; Z88.1 Allergy status to other antibiotic agents
CPT/HCPCS: 99284